=== PATIENT | male | born 1950 | race Caucasian/White ===

== ENCOUNTER 2016-07-27 16:13 | Inpatient (IN) | payer MEDICARE, OTHER ==
[2016-07-27 20:02] LABS: CH 31.8; CHCM 32.7; HCT 47.9 % (39.0-53.0); HDW 2.32; HGB 15.9 gm/dL (13.0-17.5); MCH 32.4 pg (25.0-35.0); MCHC 33.1 g/dL (31.0-37.0); MCV 97.8 fL (80.0-100.0); Mean Platelet Volume 7.5; WBC 6.2 k/uL (3.8-10.6)
[2016-07-27 20:16] LABS: ALT 33 U/L (21-72); AST 30 U/L (17-59); Alkaline Phosphatase 106 U/L (38-126); Anion Gap 13 mmol/L; Blood Urea Nitrogen 18 mg/dL (9-20); Calcium 9.2 mg/dL (8.4-10.2); Carbon Dioxide 24 mmol/L (22-30); Chloride 101 mmol/L (98-107); Glucose 143 mg/dL (74-99); Magnesium 1.8 mg/dL (1.6-2.3); Non-African American GFR(MDRD) >60 (>60 ml/min/1.73 sqM); Potassium 4.3 mmol/L (3.5-5.1); Sodium 138 mmol/L (137-145); Total Bilirubin 0.7 mg/dL (0.2-1.3); Total Protein 7.2 g/dL (6.3-8.2)
[2016-07-27 20:35] LABS: Troponin I 0.078 ng/mL (0.000-0.034)
[2016-07-27] MEDS: ATORVASTATIN 20 MG TAB PO SCH (21:18)
[2016-07-27] MEDS: FUROSEMIDE 10 MG/ML 4 ML VIAL IV SCH (21:19)
[2016-07-27] MEDS: AZITHROMYCIN 500 MG in SODIUM CHLORIDE 0.9% 250 ML IVPB SCH (23:12)
[2016-07-28 02:45] LABS: Troponin I 0.06 ng/mL (0.000-0.034)
[2016-07-28] MEDS: MELATONIN 3 MG TABLET PO SCH ×2 (04:32→22:14)
[2016-07-28] MEDS: IPRATROPIUM-ALBUTEROL 3 ML NEB INHALATION SCH ×5 (04:32→20:38)
[2016-07-28] MEDS: FUROSEMIDE 10 MG/ML 4 ML VIAL IV SCH ×2 (07:07→20:27)
[2016-07-28 07:26] LABS: Cholesterol 218 mg/dL (<200); HDL Cholesterol 90 mg/dL (40-60); Triglycerides 68 mg/dL (<150)
--- NOTE | 2016-07-28 07:54 | XR ---
EXAMINATION TYPE: XR chest 1V portable DATE OF EXAM: 07/28/2016 7:11 AM COMPARISON: 07/04/2007 INDICATION: Difficulty in breathing TECHNIQUE: Single frontal view of the chest is obtained. FINDINGS: The heart size is normal. The pulmonary vasculature is normal. No focal consolidations are evident. IMPRESSION: 1. No suspicious acute pulmonary process.
[2016-07-28 08:10] LABS: Creatine Kinase MB 2.9 ng/mL (0.0-2.4); Troponin I 0.057 ng/mL (0.000-0.034)
[2016-07-28] MEDS: LISINOPRIL 10 MG TAB PO SCH (09:15)
--- NOTE | 2016-07-28 12:25 | ECHOF ---
Referral Reason:Heart Failure MEASUREMENTS -------- HEIGHT: 0.0 cm WEIGHT: 0.0 kg BP: 130/76 RVIDd: 2.6 cm (< 3.3) IVSd: 1.4 cm (0.6 - 1.1) LVIDd: 4.1 cm (3.9 - 5.3) LVPWd: 1.4 cm (0.6 - 1.1) IVSs: 1.7 cm LVIDs: 3.0 cm LVPWs: 1.7 cm LA Diam: 4.0 cm (2.7 - 3.8) LAESV Index (A-L): 37.60 ml/m Ao Diam: 3.6 cm (2.0 - 3.7) AV Cusp: 2.0 cm (1.5 - 2.6) LA Diam: 4.0 cm (2.7 - 3.8) MV EXCURSION: 19.436 mm (> 18.000) MV EF SLOPE: 75 mm/s (70 - 150) EPSS: 1.4 cm MV E Scott: 0.78 m/s MV DecT: 129 ms MV A Scott: 0.75 m/s MV E/A Ratio: 1.03 AR PHT: 1908 ms FINDINGS -------- Sinus rhythm. This was a technically good study. There is moderate concentric left ventricular hypertrophy. Overall left ventricular systolic function is mildly impaired with, an EF between 45 - 50 %. Mid to basal inferiorlateral is hypokinetic The right ventricle is normal in size. LA is moderately dilated 34-39 ml/m2 The right atrium is normal in size. Aortic valve is trileaflet and is mildly thickened. There is mild aortic regurgitation. The mitral valve leaflets are mildly thickened. Mild mitral annular calcification present. Mild mitral regurgitation is present. Trace tricuspid regurgitation present. Pulmonic valve appears structurally normal. The aortic root size is normal. Normal inferior vena cava with normal inspiratory collapse consistent with estimated right atrial pressure of 5 mmHg. There is no pericardial effusion. CONCLUSIONS -------- 1. Sinus rhythm. 2. There is mild aortic regurgitation. 3. The mitral valve leaflets are mildly thickened. 4. Mild mitral annular calcification present. 5. Mild mitral regurgitation is present. 6. Trace tricuspid regurgitation present. 7. Pulmonic valve appears structurally normal. 8. The aortic root size is normal. 9. Normal inferior vena cava with normal inspiratory collapse consistent with estimated right atrial pressure of 5 mmHg. 10. There is no pericardial effusion. 11. This was a technically good study. 12. There is moderate concentric left ventricular hypertrophy. 13. Overall left ventricular systolic function is mildly impaired with, an EF between 45 - 50 %. 14. Mid to basal inferiorlateral is hypokinetic 15. The right ventricle is normal in size. 16. LA is moderately dilated 34-39 ml/m2 17. The right atrium is normal in size. 18. Aortic valve is trileaflet and is mildly thickened. PILOT INSTRUCTOR: Walt Powell RDCS
--- NOTE | 2016-07-28 12:31 | CONS ---
DATE OF CONSULTATION: Mr. Matias is a 66-year-old gentleman who is seen for the cardiac evaluation. This patient was transferred from [facility] because of acute respiratory distress. Patient gives a history that he was having a problem for a couple of days; however, yesterday morning he became severely short of breath. Patient was taken to the [facility]. He was in sinus tachycardia with elevated blood pressure and acute heart failure. Patient was treated with IV labetalol and Lasix with improvement in the symptoms. Patient did not have any chest discomfort. Patient does have a history of hypertension, history of peripheral vascular disease and patient is a chronic smoker for many years. Patient has some nonhealing ulcer in the leg and he has a previous left leg bypass. The patient denies any definite prior history of myocardial infarction and his physical activities are significantly limited. Past medical history includes a left femur, orthopedic surgery, left leg bypass surgery, chronic back pain, history of hypertension. SOCIAL HISTORY: Patient is currently every day smoker. Patient's home medications included Motrin and Tylenol. Physical examination at present reveals a 66-year-old gentleman who at present is not in any acute respiratory distress. Blood pressure is 147/82 mmHg. Oxygen saturation is 94%. Head/ENT examination is negative. Neck is supple. Jugular venous pressure is elevated. Both the carotid pulses are felt. There is no bruit. Chest is symmetrical. HEART: The PMI is not felt. First and second heart sounds are normal. Lungs examination reveals bilateral basal rales with scattered wheezes. Abdomen is soft. EXTREMITIES: Peripheral pulsations are 1+. Patient's initial EKG done at the [facility] showed sinus tachycardia. Subsequent EKG showed left ventricular hypertrophy with T wave changes suggestive of ischemia versus strain pattern. Patient's initial troponin was 0.78, subsequent troponin are 0.060, 1057. BNP level was 2700. Chest x-ray showed evidence of heart failure. Patient's echocardiogram shows evidence of inferolateral hypokinesia with overall mildly impaired left ventricular systolic function. FINAL IMPRESSION: This patient has presented with acute pulmonary edema. EKG shows anterolateral T wave changes, which could be suggestive of ischemia or secondary to left ventricular hypertrophy and strain pattern. Patient has a mildly elevated troponin suggestive of possible non-Q-wave myocardial infarction. RECOMMENDATIONS: At present, I would recommend to continue the patient on medical treatment. Once the patient's condition is improved and heart failure is improving we will consider cardiac catheterization on Saturday or Saturday. Thank you very much for letting me participate in the care of this nice gentleman.
[2016-07-28 13:39] VITALS: BMI 28.7
[2016-07-28] MEDS: ASPIRIN 325 MG TAB PO SCH (13:44)
[2016-07-28] MEDS: METOPROLOL TARTRATE 25 MG TAB PO SCH ×2 (13:44→20:37)
[2016-07-28] MEDS: IBUPROFEN 200 MG TAB PO PRN (17:27)
[2016-07-28] MEDS: AZITHROMYCIN 500 MG in SODIUM CHLORIDE 0.9% 250 ML IVPB SCH (18:12)
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
[2016-07-28] MEDS: ATORVASTATIN 20 MG TAB PO SCH (20:37)
[2016-07-28] MEDS: ACETAMINOPHEN TAB 325 MG TAB PO PRN (23:44)
[2016-07-29] MEDS: IBUPROFEN 200 MG TAB PO PRN ×3 (00:05→17:41)
[2016-07-29 06:23] LABS: Basophils % (A) 1 %; CHCM 32.4; Eosinophils # (A) 0.1 k/uL (0-0.7); Eosinophils % (A) 2 %; HCT 49.8 % (39.0-53.0); HDW 2.18; HGB 15.6 gm/dL (13.0-17.5); Luc # (Auto) 0.21; Luc % (Auto) 3; Lymphocytes # (A) 1.8 k/uL (1.0-4.8); Lymphocytes % (A) 25 %; MCH 31.1 pg (25.0-35.0); MCHC 31.4 g/dL (31.0-37.0); MCV 99.2 fL (80.0-100.0); Mean Platelet Volume 6.9; Monocytes # (A) 0.6 k/uL (0-1.0); Monocytes % (A) 9 %; Neutrophils # (A) 4.4 k/uL (1.3-7.7); Neutrophils % (A) 61 %; RBC 5.02 m/uL (4.30-5.90); RDW 13.9 % (11.5-15.5); WBC 7.2 k/uL (3.8-10.6); WBC (Perox) 7.17
[2016-07-29 06:31] LABS: ALT 43 U/L (21-72); AST 33 U/L (17-59); Alkaline Phosphatase 97 U/L (38-126); Anion Gap 7 mmol/L; Blood Urea Nitrogen 27 mg/dL (9-20); Calcium 9.6 mg/dL (8.4-10.2); Carbon Dioxide 30 mmol/L (22-30); Chloride 105 mmol/L (98-107); Glucose 111 mg/dL (74-99); Magnesium 2.1 mg/dL (1.6-2.3); Non-African American GFR(MDRD) >60 (>60 ml/min/1.73 sqM); Potassium 4.2 mmol/L (3.5-5.1); Sodium 142 mmol/L (137-145); Total Bilirubin 0.7 mg/dL (0.2-1.3); Total Protein 6.9 g/dL (6.3-8.2)
[2016-07-29] MEDS: FUROSEMIDE 10 MG/ML 4 ML VIAL IV SCH (06:33)
[2016-07-29] MEDS: ACETAMINOPHEN TAB 325 MG TAB PO PRN ×2 (06:36→15:19)
[2016-07-29] MEDS: IPRATROPIUM-ALBUTEROL 3 ML NEB INHALATION SCH ×4 (08:19→20:51)
[2016-07-29] MEDS: LISINOPRIL 10 MG TAB PO SCH (09:14)
[2016-07-29] MEDS: METOPROLOL TARTRATE 25 MG TAB PO SCH ×2 (09:14→20:02)
[2016-07-29] MEDS: ASPIRIN 325 MG TAB PO SCH (09:14)
[2016-07-29] MEDS ORDERED: ALPRAZolam 0.25 MG TAB PO PRN (13:50)
[2016-07-29] MEDS ORDERED: NITROGLYCERIN SL TABS 0.4 MG TAB SUBLINGUAL PRN (13:50)
[2016-07-29] MEDS ORDERED: ALPRAZolam 0.5 MG TAB PO PRN (13:50)
[2016-07-29] MEDS ORDERED: SODIUM CHLORIDE 0.9% 1,000 ML in EMPTY BAG 1 BAG IV ONE (13:50)
[2016-07-29] MEDS ORDERED: ASPIRIN 325 MG TAB PO STA (13:50)
[2016-07-29] MEDS ORDERED: ATORVASTATIN 80 MG TAB PO STA (13:50)
[2016-07-29] MEDS: FUROSEMIDE 40 MG TAB PO SCH (15:19)
[2016-07-29 15:39] VITALS: RESP 18
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
[2016-07-29] MEDS: ATORVASTATIN 20 MG TAB PO SCH (20:02)
[2016-07-29] MEDS ORDERED: traMADol 50 MG TAB PO SCH (22:00)
[2016-07-29] MEDS: MELATONIN 3 MG TABLET PO SCH (22:34)
[2016-07-30] MEDS: METOPROLOL TARTRATE 25 MG TAB PO SCH ×2 (06:15→20:10)
[2016-07-30] MEDS: LISINOPRIL 10 MG TAB PO SCH (06:15)
[2016-07-30] MEDS: ASPIRIN 325 MG TAB PO SCH (06:15)
[2016-07-30] MEDS: traMADol 50 MG TAB PO PRN ×2 (06:16→13:14)
[2016-07-30 07:03] LABS: Basophils # (A) 0.1 k/uL (0-0.2); Basophils % (A) 1 %; CH 31.8; CHCM 32.2; Eosinophils # (A) 0.3 k/uL (0-0.7); Eosinophils % (A) 4 %; HCT 50.7 % (39.0-53.0); HDW 2.22; HGB 16.2 gm/dL (13.0-17.5); Luc # (Auto) 0.21; Luc % (Auto) 3; Lymphocytes # (A) 1.7 k/uL (1.0-4.8); Lymphocytes % (A) 24 %; MCH 31.7 pg (25.0-35.0); MCV 99.1 fL (80.0-100.0); Mean Platelet Volume 6.9; Monocytes # (A) 0.6 k/uL (0-1.0); Monocytes % (A) 8 %; Neutrophils # (A) 4.2 k/uL (1.3-7.7); Neutrophils % (A) 60 %; RBC 5.11 m/uL (4.30-5.90); RDW 13.7 % (11.5-15.5); WBC 6.9 k/uL (3.8-10.6); WBC (Perox) 7.16
[2016-07-30 07:24] LABS: ALT 37 U/L (21-72); AST 30 U/L (17-59); Alkaline Phosphatase 96 U/L (38-126); Anion Gap 9 mmol/L; Blood Urea Nitrogen 29 mg/dL (9-20); Calcium 9.4 mg/dL (8.4-10.2); Carbon Dioxide 27 mmol/L (22-30); Chloride 107 mmol/L (98-107); Glucose 115 mg/dL (74-99); Non-African American GFR(MDRD) >60 (>60 ml/min/1.73 sqM); Potassium 4.1 mmol/L (3.5-5.1); Sodium 143 mmol/L (137-145); Total Bilirubin 0.8 mg/dL (0.2-1.3); Total Protein 6.8 g/dL (6.3-8.2)
[2016-07-30] MEDS: IPRATROPIUM-ALBUTEROL 3 ML NEB INHALATION SCH ×4 (07:31→20:03)
[2016-07-30] MEDS: FUROSEMIDE 40 MG TAB PO SCH ×2 (12:59→18:22)
[2016-07-30] MEDS: ACETAMINOPHEN TAB 325 MG TAB PO PRN (13:14)
--- NOTE | 2016-07-30 16:01 | P.PN ---
Subjective Principal diagnosis: Respiratory distress Progress no further date of service 07/29/2016 This is a 66-year-old gentleman transferred here from [facility] because of acute respiratory distress. He was in sinus tachycardia with elevated blood pressure as well as acute congestive heart failure. Patient was treated with IV labetalol and Lasix with improvement in symptoms. Patient does have history of hypertension, peripheral vascular disease, chronic smoking. He also has a nonhealing ulcer in the leg. Laboratory data, potassium 4.2, BUN 27, creatinine 0.8. Overall patient is improving, he has been advised to undergo cardiac catheterization. Patient has a lot of difficulty lying flat, and is requesting to have radial approach. Procedure will be scheduled tomorrow with Dr. Johnson. Risks and benefits explained to the patient in detail. The Lasix will be discontinued and patient will be initiated on by mouth Lasix. Objective - Vital Signs Vital signs: Vital Signs Temp 97.4 F L 07/30/16 09:25 Pulse 76 07/30/16 11:45 Resp 18 07/30/16 11:45 BP 147/76 07/30/16 11:45 Pulse Ox 94 L 07/30/16 11:45 Intake & Output 07/29/16 07/30/16 07/30/16 18:59 06:59 18:59 Intake Total 550 1100 1278 Output Total 500 450 Balance 50 650 1278 Weight 88.1 kg Intake: Intake, IV Titration 1056 Amount Sodium Chloride 0.9% 1, 1056 000 ml In Empty Bag 1 bag @ 1 ML/KG/HR 88.8 mls/hr IV .[id number] ONE Rx#: [id number] Oral 550 1100 222 Output: Urine 500 450 Other: Voiding Method Urinal Urinal Urinal # Voids 3 - Exam PHYSICAL EXAMINATION: HEENT: Head is atraumatic, normocephalic. Pupils equal, round. Neck is supple. There is no elevated jugular venous pressure. HEART EXAMINATION: Heart S1, S2 normal. No murmur or gallop heard. CHEST EXAMINATION: Lungs reveal fine crackles bilaterally. ABDOMEN: Soft, nontender. Bowel sounds are heard. No organomegaly noted. EXTREMITIES: 2+ peripheral pulses with no evidence of peripheral edema and no calf tenderness noted. NEUROLOGIC patient is awake, alert and oriented -3. . - Labs CBC & Chem 7: 07/30/16 06:26 03/06/17 06:23 Labs: Abnormal Lab Results - Last 24 Hours (Table) 07/30/16 Range/Units 06:23 BUN 29 H (9-20) mg/dL Glucose 115 H (74-99) mg/dL Assessment and Plan (1) Acute respiratory failure with hypoxia Status: Acute (2) Non-STEMI (non-ST elevated myocardial infarction) Status: Acute (3) Nicotine dependence Status: Acute (4) HTN (hypertension) Status: Acute (5) Hyperlipemia Status: Acute (6) Systolic CHF, acute on chronic Status: Acute Plan: Echocardiogram with Doppler study revealed an ejection fraction of 45-50% with inferior lateral hypokinesia. Patient has been advised to undergo cardiac catheterization, this will be performed tomorrow by Dr. Johnson. DNP note has been reviewed, I agree with a documented findings and plan of care. Patient was seen and examined.
--- NOTE | 2016-07-30 16:04 | P.PN ---
Subjective Principal diagnosis: Respiratory distress Progress no further date of service 07/30/2016 This is a 66-year-old gentleman transferred here from [facility] because of acute respiratory distress. He was in sinus tachycardia with elevated blood pressure as well as acute congestive heart failure. Patient was treated with IV labetalol and Lasix with improvement in symptoms. Patient does have history of hypertension, peripheral vascular disease, chronic smoking. He also has a nonhealing ulcer in the leg. He was originally scheduled to undergo cardiac catheterization today, this had postponed until tomorrow. He denies any chest pain, breathing is been stable. Objective - Vital Signs Vital signs: Vital Signs Temp 97.4 F L 07/30/16 09:25 Pulse 76 07/30/16 11:45 Resp 18 07/30/16 11:45 BP 147/76 07/30/16 11:45 Pulse Ox 94 L 07/30/16 11:45 Intake & Output 07/29/16 07/30/16 07/30/16 18:59 06:59 18:59 Intake Total 550 1100 1278 Output Total 500 450 Balance 50 650 1278 Weight 88.1 kg Intake: Intake, IV Titration 1056 Amount Sodium Chloride 0.9% 1, 1056 000 ml In Empty Bag 1 bag @ 1 ML/KG/HR 88.8 mls/hr IV .[id number] ONE Rx#: [id number] Oral 550 1100 222 Output: Urine 500 450 Other: Voiding Method Urinal Urinal Urinal # Voids 3 - Exam PHYSICAL EXAMINATION: HEENT: Head is atraumatic, normocephalic. Pupils equal, round. Neck is supple. There is no elevated jugular venous pressure. HEART EXAMINATION: Heart S1, S2 normal. No murmur or gallop heard. CHEST EXAMINATION: Lungs reveal fine crackles bilaterally. ABDOMEN: Soft, nontender. Bowel sounds are heard. No organomegaly noted. EXTREMITIES: 2+ peripheral pulses with no evidence of peripheral edema and no calf tenderness noted. NEUROLOGIC patient is awake, alert and oriented -3. . - Labs CBC & Chem 7: 07/30/16 06:26 07/30/16 06:23 Labs: Abnormal Lab Results - Last 24 Hours (Table) 07/30/16 Range/Units 06:23 BUN 29 H (9-20) mg/dL Glucose 115 H (74-99) mg/dL Assessment and Plan (1) Acute respiratory failure with hypoxia Status: Acute (2) Non-STEMI (non-ST elevated myocardial infarction) Status: Acute (3) Nicotine dependence Status: Acute (4) HTN (hypertension) Status: Acute (5) Hyperlipemia Status: Acute (6) Systolic CHF, acute on chronic Status: Acute Plan: Echocardiogram with Doppler study revealed an ejection fraction of 45-50% with inferior lateral hypokinesia. Patient has been advised to undergo cardiac catheterization, this will be performed tomorrow by Dr. Johnson. We'll continue the patient on his current medications. DNP note has been reviewed, I agree with a documented findings and plan of care. Patient was seen and examined.
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
--- NOTE | 2016-07-30 19:48 | XR ---
EXAMINATION TYPE: XR chest 2V DATE OF EXAM: 07/30/2016 7:34 PM COMPARISON: 07/28/2016 HISTORY: Heart failure. Short of breath TECHNIQUE: Frontal and lateral views of the chest are obtained. FINDINGS: Heart and mediastinum are normal. Lungs are clear of infiltrate. There is no heart failure . There are chest leads. There is no sign of pleural effusion. Bony thorax appears intact. IMPRESSION: No active cardiopulmonary disease. No adverse change compared to old exam.
[2016-07-30] MEDS: ATORVASTATIN 20 MG TAB PO SCH (20:10)
[2016-07-30] MEDS: IBUPROFEN 200 MG TAB PO PRN (20:11)
[2016-07-30] MEDS: MELATONIN 3 MG TABLET PO SCH (23:11)
[2016-07-31 03:52] VITALS: TEMP 97.5
[2016-07-31] MEDS: METOPROLOL TARTRATE 25 MG TAB PO SCH (05:57)
[2016-07-31] MEDS: LISINOPRIL 10 MG TAB PO SCH (05:57)
[2016-07-31] MEDS: ASPIRIN 325 MG TAB PO SCH (05:57)
[2016-07-31 06:29] LABS: Basophils # (A) 0.1 k/uL (0-0.2); Basophils % (A) 1 %; CH 31.7; CHCM 32.5; Eosinophils # (A) 0.4 k/uL (0-0.7); Eosinophils % (A) 6 %; HCT 51.3 % (39.0-53.0); HDW 2.27; HGB 16.3 gm/dL (13.0-17.5); Luc # (Auto) 0.17; Luc % (Auto) 3; Lymphocytes # (A) 1.4 k/uL (1.0-4.8); Lymphocytes % (A) 25 %; MCH 31.2 pg (25.0-35.0); MCHC 31.8 g/dL (31.0-37.0); MCV 98.1 fL (80.0-100.0); Mean Platelet Volume 6.7; Monocytes # (A) 0.5 k/uL (0-1.0); Monocytes % (A) 8 %; Neutrophils # (A) 3.3 k/uL (1.3-7.7); Neutrophils % (A) 57 %; RBC 5.23 m/uL (4.30-5.90); RDW 13.6 % (11.5-15.5); WBC 5.8 k/uL (3.8-10.6); WBC (Perox) 5.83
[2016-07-31 06:47] LABS: ALT 41 U/L (21-72); AST 31 U/L (17-59); Alkaline Phosphatase 102 U/L (38-126); Anion Gap 10 mmol/L; Blood Urea Nitrogen 27 mg/dL (9-20); Calcium 9.7 mg/dL (8.4-10.2); Carbon Dioxide 30 mmol/L (22-30); Chloride 102 mmol/L (98-107); Glucose 113 mg/dL (74-99); Non-African American GFR(MDRD) >60 (>60 ml/min/1.73 sqM); Potassium 4.6 mmol/L (3.5-5.1); Sodium 142 mmol/L (137-145); Total Bilirubin 0.9 mg/dL (0.2-1.3); Total Protein 6.9 g/dL (6.3-8.2)
[2016-07-31] MEDS: IPRATROPIUM-ALBUTEROL 3 ML NEB INHALATION SCH ×2 (08:10→13:01)
[2016-07-31] MEDS: traMADol 50 MG TAB PO PRN (08:20)
[2016-07-31] MEDS: ACETAMINOPHEN TAB 325 MG TAB PO PRN (08:20)
[2016-07-31] MEDS ORDERED: LIDOCAINE 2% INJ 20 MG/ML (20 ML MDV) ONE (08:48)
[2016-07-31] MEDS ORDERED: MIDAZOLAM 2 MG/2 ML VIAL ONE (08:48)
[2016-07-31] MEDS ORDERED: SODIUM CHLORIDE 0.9% (PF) 10 ML VIAL ONE ×2 (08:49→09:50)
[2016-07-31] MEDS ORDERED: HEPARIN SODIUM 1,000 UNIT/ML VIAL ONE (08:49)
[2016-07-31] MEDS ORDERED: VERAPAMIL 2.5 MG/ML 2 ML AMP ONE ×2 (08:49→09:50)
[2016-07-31] MEDS ORDERED: MIDAZOLAM 2 MG/2 ML VIAL IVP ONE (09:29)
[2016-07-31] MEDS ORDERED: LIDOCAINE 2% (PF) 20 MG/ML 2 ML VIAL SQ ONE (09:35)
[2016-07-31] MEDS: VERAPAMIL SYRINGE (5 MG/10 ML) INTRACORON ONE ×2 (09:36→09:43)
[2016-07-31] MEDS ORDERED: HYDROmorphone 2 MG/ML 1 ML SYRINGE ONE (09:37)
[2016-07-31] MEDS ORDERED: HYDROmorphone 2 MG/ML 1 ML SYRINGE IVP ONE (09:39)
[2016-07-31] MEDS ORDERED: HEPARIN SODIUM 1,000 UNIT/ML VIAL IV ONE (09:41)
[2016-07-31] MEDS ORDERED: VERAPAMIL SYRINGE (5 MG/10 ML) INTRACORON ONE (09:51)
[2016-07-31] MEDS ORDERED: VERAPAMIL 2.5 MG/ML 4 ML VIAL INTRAARTER ONE (09:51)
[2016-07-31] MEDS ORDERED: SODIUM CHLORIDE 0.9% 1,000 ML IV ONE (09:55)
[2016-07-31] MEDS ORDERED: IOHEXOL 350 MG/ML 100 ML BOTTLE INJ ONE (09:55)
[2016-07-31] MEDS ORDERED: RX INFO: IV CONTRAST WAS GIVEN 1 EACH MISC MISCELLANE PRN (10:05)
[2016-07-31] MEDS ORDERED: SODIUM CHLORIDE 0.9% 1,000 ML IV SCH (10:15)
--- NOTE | 2016-07-31 10:29 | CC ---
DATE OF SERVICE: 07/30/2016 PERFORMING PHYSICIAN: José Luis Avila MD, Repeater Operator. PROCEDURE PERFORMED: Selective right and left coronary angiogram. INDICATION: This is a pleasant 66-year-old gentleman who was admitted to the hospital with congestive heart failure exacerbation and underwent an echocardiogram which showed mild cardiomyopathy, but the cardiac enzymes came in to be slightly abnormal. The heart catheterization is to rule out any severe underlying CAD. APPROACH: Right radial artery. COMPLICATION: None. LEVEL OF SEDATION: Moderate with the length of sedation of 30 minutes. PROCEDURE DESCRIPTION: After obtaining an informed consent, the patient was brought to the cardiac mason tender restoration labor. The right radial artery was cannulated using micropuncture technique, the micropuncture wire passed easily, then I placed a 6 Romanian sheath in the right radial artery. Subsequently, I gave the patient 4 mg of verapamil IA and 3000 units of heparin IV. After that, I did selective right and left coronary angiogram using JR4 and JL 3.5 catheters. The procedure was completed without any complication. SELECTIVE CORONARY ANGIOGRAM: 1. The right coronary artery is a medium caliber vessel and it is a dominant vessel. The right coronary artery has mild disease only. In the midportion it gives rise into a small acute marginal branch and distally bifurcates into PDA and PLV branches; both are angiographically normal. 2. The left main is angiographically normal. It bifurcates into the left circumflex and left anterior descending artery. 3. The left circumflex is a large-caliber vessel and it is a nondominant vessel, the proximal circ is normal and gives rise to the first OM, which appeared to be angiographically normally. The mid circ has eccentric lesion, seems to be in the range of 40% to 50%. The left circumflex distally gives rises into the second OM branch, which appeared to be angiographically normal. Then the circ bifurcates into PDA and PLV branches; both are angiographically normal. 4. The proximal LAD is angiographically normal. It gives rise to the first and second diag, both are angiographically normal. The mid LAD is normal and gives rise to the third diag, which appeared to be angiographically normal. The LAD distally is angiographically normal. CONCLUSION: 1. Codominant right and left coronary system. 2. Intermediate disease involving the mid left circumflex with eccentric lesion, appeared to be in the range of 50%. Postprocedure management is medical treatment.
[2016-07-31] MEDS: FUROSEMIDE 40 MG TAB PO SCH ×2 (10:39→16:24)
[2016-07-31 14:09] VITALS: BP 126/68; PULSE 72
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
== END 2016-07-31 17:13 | disposition home or self-care (01) | DRG 280 ==
LOC: 6SEL 18:05
PROVIDERS: ADMIT Internal Medicine; ATTEND Internal Medicine
PROC: 4A023N7 Measurement of Cardiac Sampling and Pressure, Left Heart, Percutaneous Approach (ICD-10-PCS; principal; 2016-07-30)
PROC: B2151ZZ Fluoroscopy of Left Heart using Low Osmolar Contrast (ICD-10-PCS; principal; 2016-07-30)
PROC: B2111ZZ Fluoroscopy of Multiple Coronary Arteries using Low Osmolar Contrast (ICD-10-PCS; principal; 2016-07-30)
DX: I21.4 Non-ST elevation (NSTEMI) myocardial infarction (principal); I50.23 Acute on chronic systolic (congestive) heart failure; J96.01 Acute respiratory failure with hypoxia; I42.9 Cardiomyopathy, unspecified; I73.9 Peripheral vascular disease, unspecified; I11.0 Hypertensive heart disease with heart failure; E78.5 Hyperlipidemia, unspecified; F17.200 Nicotine dependence, unspecified, uncomplicated; I25.10 Atherosclerotic heart disease of native coronary artery without angina pectoris; M54.5 Low back pain; G89.29 Other chronic pain; Z79.899 Other long term (current) drug therapy
CPT/HCPCS: 71010; 71020; 80053; 80061; 82553; 83735; 83880; 84484; 85025; 85027; 93306; 93454

== ENCOUNTER → 2016-08-06 | Outpatient (CLI) | payer MEDICARE ==
[2016-08-06 13:16] LABS: ALT 41 U/L (21-72); AST 35 U/L (17-59); Alkaline Phosphatase 141 U/L (38-126); Anion Gap 10 mmol/L; Blood Urea Nitrogen 25 mg/dL (9-20); Calcium 9.7 mg/dL (8.4-10.2); Carbon Dioxide 29 mmol/L (22-30); Chloride 99 mmol/L (98-107); Glucose 97 mg/dL (74-99); Non-African American GFR(MDRD) >60 (>60 ml/min/1.73 sqM); Sodium 138 mmol/L (137-145); Total Bilirubin 0.6 mg/dL (0.2-1.3); Total Protein 7.6 g/dL (6.3-8.2)
[2016-08-06 13:30] LABS: Basophils # (A) 0.1 k/uL (0-0.2); Basophils % (A) 1 %; CH 32.1; CHCM 33.4; Eosinophils # (A) 0.2 k/uL (0-0.7); Eosinophils % (A) 3 %; HCT 50.6 % (39.0-53.0); HGB 16.9 gm/dL (13.0-17.5); Luc # (Auto) 0.31; Luc % (Auto) 4; Lymphocytes # (A) 1.6 k/uL (1.0-4.8); Lymphocytes % (A) 19 %; MCH 32.2 pg (25.0-35.0); MCHC 33.3 g/dL (31.0-37.0); MCV 96.5 fL (80.0-100.0); Mean Platelet Volume 7.9; Monocytes # (A) 0.6 k/uL (0-1.0); Monocytes % (A) 7 %; Neutrophils # (A) 5.9 k/uL (1.3-7.7); Neutrophils % (A) 68 %; RBC 5.24 m/uL (4.30-5.90); RDW 13.3 % (11.5-15.5); WBC 8.7 k/uL (3.8-10.6)
== END | disposition home or self-care (01) ==
LOC: LABWHC1 12:24
PROVIDERS: ATTEND Internal Medicine
DX: I50.9 Heart failure, unspecified (principal)
CPT/HCPCS: 36415; 80053; 85025

== ENCOUNTER 2017-06-25 15:29 | Inpatient (IN) | payer MEDICARE, OTHER ==
[2017-06-25] MEDS ORDERED: HYDROmorphone 2 MG/ML 1 ML SYRINGE IVP STA ×2 (17:18→18:35)
[2017-06-25] MEDS ORDERED: ONDANSETRON 4 MG/2 ML VIAL IVP STA (17:18)
--- NOTE | 2017-06-25 17:28 | ED ---
General Adult HPI - General Chief complaint: Fall Stated complaint: fall/left leg wound Time Seen by Provider: 06/25/17 17:10 Source: patient Mode of arrival: wheelchair Limitations: no limitations - History of Present Illness Initial comments: 67-year-old male patient presents to the emergency department today for evaluation of wounds to his left lower leg. Patient states that he has had chronic wounds to the leg for many years. States that he did have the wounds down to a very small size however over the last month of wounds seem to be worsening again. Patient states that he presents today due to increased pain to the area. He did go to his primary care physician's office today and was sent here for further evaluation of possible infection. Patient states he has been feeling unwell, nauseated, and chilled recently. Patient states that he has been taking Tylenol for pain however is not helping. States he has been applying antibiotic ointment to the wounds. States that they seem to be getting worse. Patient reports he also does have frequent falls, states that this is been happening for many years as well. Patient states that he believes soon stem from vascular issues. He denies having any diabetes.Patient denies any recent rash, shortness breath, chest pain, abdominal pain, vomiting, diarrhea, constipation, back pain, numbness, tingling, dizziness, weakness, hematuria, dysuria, urinary urgency, urinary frequency, headache, visual changes , or any other complaints. - Related Data Home Medications Medication Instructions Recorded Confirmed Cholecalciferol [Vitamin D3] 1,000 unit PO DAILY 06/25/17 06/25/17 Losartan Potassium 100 mg PO DAILY 06/25/17 06/25/17 Previous Rx's Medication Instructions Recorded Aspirin 325 mg PO DAILY #30 tab 07/31/16 Atorvastatin [Lipitor] 20 mg PO HS #30 tab 07/31/16 Furosemide [Lasix] 40 mg PO BID@0900,1600 #60 tab 07/31/16 Metoprolol Tartrate [Lopressor] 25 mg PO BID #60 tab 07/31/16 Allergies Allergy/AdvReac Type Severity Reaction Status Date / Time No Known Allergies Allergy Verified 06/25/17 17:31 Review of Systems ROS Statement: Those systems with pertinent positive or pertinent negative responses have been documented in the HPI. ROS Other: All systems not noted in ROS Statement are negative. Past Medical History Past Medical History: Chest Pain / Angina, Heart Failure, Hypertension, Myocardial Infarction ([place]), Skin Disorder Additional Past Medical History / Comment(s): chronic back pain History of Any Multi-Drug Resistant Organisms: None Reported Past Surgical History: Orthopedic Surgery Additional Past Surgical History / Comment(s): left femur ORIF, left leg bypass Past Anesthesia/Blood Transfusion Reactions: No Reported Reaction Past Psychological History: No Psychological Hx Reported Smoking Status: Current every day smoker Past Alcohol Use History: Heavy Past Drug Use History: None Reported General Exam Limitations: no limitations General appearance: alert, in no apparent distress, other (This is a well- developed, well-nourished adult male patient in no acute distress. Vital signs upon presentation are temperature 99.3F, pulse 1:15, respirations 18, blood pressure 166/77, pulse ox 96% on room air.) Eye exam: Present: normal appearance, PERRL, EOMI. Absent: scleral icterus, conjunctival injection, periorbital swelling ENT exam: Present: normal exam, normal oropharynx, mucous membranes moist Respiratory exam: Present: normal lung sounds bilaterally. Absent: respiratory distress, wheezes, rales, rhonchi, stridor Cardiovascular Exam: Present: regular rate, normal rhythm, normal heart sounds. Absent: systolic murmur, diastolic murmur, rubs, gallop, clicks GI/Abdominal exam: Present: soft, normal bowel sounds. Absent: distended, tenderness, guarding, rebound, rigid Extremities exam: Present: full ROM, normal capillary refill, other (Patient has large ulcers to the left lower leg over the anterior ibrahim, over the medial left ankle, there is surrounding erythema and swelling noted. Left foot is erythematous and swollen as well. Pedal pulses 2+ and equal bilaterally.). Absent: normal inspection, tenderness, pedal edema, joint swelling, calf tenderness Neurological exam: Present: alert, oriented X3, CN II-XII intact Psychiatric exam: Present: normal affect, normal mood Skin exam: Present: warm, dry, intact, normal color. Absent: rash Course Vital Signs 06/25/17 16:07 Temperature 99.0 F Pulse Rate 115 H Respiratory 18 Rate Blood Pressure 166/77 O2 Sat by Pulse 96 Oximetry Medical Decision Making - Medical Decision Making 67 year-old male patient presented to the emergency department today for evaluation of wounds to his left lower leg. Physical examination did reveal multiple ulcers to both the anterior ibrahim and the medial ankle. There is a significant surrounding cellulitis and swelling. Labs were reviewed and were relatively unremarkable. X-rays were obtained and did not show any evidence of osteomyelitis. Patient will be admitted for pain management and further evaluation by infectious disease as well as vascular. Zosyn and Vanco have been started. My attending Dr. Monterroso did speak to Dr. Finnegan who accepts the patient. - Lab Data Result diagrams: 06/25/17 17:34 06/25/17 17:34 Lab Results 06/25/17 06/25/17 06/25/17 Range/Units 17:34 17:34 17:34 WBC 10.1 (3.8-10.6) k/uL RBC 4.36 (4.30-5.90) m/uL Hgb 13.8 (13.0-17.5) gm/dL Hct 42.2 (39.0-53.0) % MCV 96.8 (80.0-100.0) fL MCH 31.6 (25.0-35.0) pg MCHC 32.6 (31.0-37.0) g/dL RDW 14.9 (11.5-15.5) % Plt Count 342 (150-450) k/uL Neutrophils % 78 % Lymphocytes % 10 % Monocytes % 7 % Eosinophils % 2 % Basophils % 0 % Neutrophils # 7.9 H (1.3-7.7) k/uL Lymphocytes # 1.1 (1.0-4.8) k/uL Monocytes # 0.7 (0-1.0) k/uL Eosinophils # 0.2 (0-0.7) k/uL Basophils # 0.0 (0-0.2) k/uL PT 9.2 (9.0-12.0) sec INR 0.9 (<1.2) APTT 24.8 (22.0-30.0) sec Sodium 136 L (137-145) mmol/L Potassium 4.7 (3.5-5.1) mmol/L Chloride 99 (98-107) mmol/L Carbon Dioxide 28 (22-30) mmol/L Anion Gap 9 mmol/L BUN 15 (9-20) mg/dL Creatinine 0.70 (0.66-1.25) mg/dL Est GFR (MDRD) Af Amer >60 (>60 ml/min/1.73 sqM) Est GFR (MDRD) Non-Af >60 (>60 ml/min/1.73 sqM) Glucose 105 H (74-99) mg/dL Plasma Lactic Acid Elder (0.7-2.0) mmol/L Calcium 9.5 (8.4-10.2) mg/dL Total Bilirubin 0.4 (0.2-1.3) mg/dL AST 29 (17-59) U/L ALT 32 (21-72) U/L Alkaline Phosphatase 138 H (38-126) U/L Total Protein 6.7 (6.3-8.2) g/dL Albumin 4.0 (3.5-5.0) g/dL 06/25/17 Range/Units 17:43 WBC (3.8-10.6) k/uL RBC (4.30-5.90) m/uL Hgb (13.0-17.5) gm/dL Hct (39.0-53.0) % MCV (80.0-100.0) fL MCH (25.0-35.0) pg MCHC (31.0-37.0) g/dL RDW (11.5-15.5) % Plt Count (150-450) k/uL Neutrophils % % Lymphocytes % % Monocytes % % Eosinophils % % Basophils % % Neutrophils # (1.3-7.7) k/uL Lymphocytes # (1.0-4.8) k/uL Monocytes # (0-1.0) k/uL Eosinophils # (0-0.7) k/uL Basophils # (0-0.2) k/uL PT (9.0-12.0) sec INR (<1.2) APTT (22.0-30.0) sec Sodium (137-145) mmol/L Potassium (3.5-5.1) mmol/L Chloride (98-107) mmol/L Carbon Dioxide (22-30) mmol/L Anion Gap mmol/L BUN (9-20) mg/dL Creatinine (0.66-1.25) mg/dL Est GFR (MDRD) Af Amer (>60 ml/min/1.73 sqM) Est GFR (MDRD) Non-Af (>60 ml/min/1.73 sqM) Glucose (74-99) mg/dL Plasma Lactic Acid Elder 0.7 (0.7-2.0) mmol/L Calcium (8.4-10.2) mg/dL Total Bilirubin (0.2-1.3) mg/dL AST (17-59) U/L ALT (21-72) U/L Alkaline Phosphatase (38-126) U/L Total Protein (6.3-8.2) g/dL Albumin (3.5-5.0) g/dL - Radiology Data Radiology results: report reviewed, image reviewed Two-view x-ray of the left tib-fib shows deformity of the midshaft of the tibia related to old healed fracture. There is moderately severe osteoarthritis in the knee joint. I see no acute fracture. There is old he'll midshaft fibular fracture. Impression by Dr. Brennan shows no acute bony abnormality. No sign of osteomyelitis. There is progression of osteoarthritis in the knee joint compared to old exam. 3 views of the left ankle are obtained and showed some soft tissue swelling around the ankle joint. Ankle mortise is anatomic. There is deformity of the distal tibia consistent with old healed fracture medially. Subtalar joint is intact. Impression by Dr. Brennan shows soft tissue swelling. No fracture seen. No bony change. Disposition Clinical Impression: Leg wound, left Disposition: ADMITTED IP TO THIS HOSP Condition: Serious Referrals: Freddie House MD [Primary Care Provider] - 1-2 days Decision to Admit Reason: Admit from EC (t) Decision Date: 06/25/17 Decision Time: 18:48
[2017-06-25] MEDS: SODIUM CHLORIDE 0.9% 500 ML IV SCH ×2 (17:38→18:43)
[2017-06-25 17:44] LABS: Basophils % (A) 0 %; Eosinophils # (A) 0.2 k/uL (0-0.7); Eosinophils % (A) 2 %; HCT 42.2 % (39.0-53.0); HGB 13.8 gm/dL (13.0-17.5); Lymphocytes # (A) 1.1 k/uL (1.0-4.8); Lymphocytes % (A) 10 %; MCH 31.6 pg (25.0-35.0); MCHC 32.6 g/dL (31.0-37.0); MCV 96.8 fL (80.0-100.0); Mean Platelet Volume 7.3; Monocytes # (A) 0.7 k/uL (0-1.0); Monocytes % (A) 7 %; Neutrophils # (A) 7.9 k/uL (1.3-7.7); Neutrophils % (A) 78 %; Platelet Count 342 k/uL (150-450); RBC 4.36 m/uL (4.30-5.90); RDW 14.9 % (11.5-15.5); WBC 10.1 k/uL (3.8-10.6)
[2017-06-25] MEDS ORDERED: VANCOMYCIN IV PER PHARMACY 1 EACH MISC MISCELLANE PRN (17:55)
[2017-06-25] MEDS ORDERED: PIPERACILLIN-TAZOBACTAM 3.375 GM in DEXTROSE/WATER 1 50ML.BAG IVPB STA (17:55)
[2017-06-25 18:02] LABS: ALT 32 U/L (21-72); AST 29 U/L (17-59); Alkaline Phosphatase 138 U/L (38-126); Anion Gap 9 mmol/L; Blood Urea Nitrogen 15 mg/dL (9-20); Calcium 9.5 mg/dL (8.4-10.2); Carbon Dioxide 28 mmol/L (22-30); Chloride 99 mmol/L (98-107); Glucose 105 mg/dL (74-99); Potassium 4.7 mmol/L (3.5-5.1); Sodium 136 mmol/L (137-145); Total Bilirubin 0.4 mg/dL (0.2-1.3); Total Protein 6.7 g/dL (6.3-8.2)
[2017-06-25 18:04] LABS: INR 0.9 (<1.2); Partial Thromboplastin Time 24.8 sec (22.0-30.0); Prothrombin Time 9.2 sec (9.0-12.0)
--- NOTE | 2017-06-25 18:08 | XR ---
EXAMINATION TYPE: XR tibia fibula LT DATE OF EXAM: 06/25/2017 COMPARISON: 07/10/2007 HISTORY: Pain TECHNIQUE: 2 views FINDINGS: There is deformity of the midshaft of the tibia related to old healed fracture. There is mo derately severe osteoarthritis in the knee joint. I see no acute fracture. There is old healed mid sh aft fibular fracture. IMPRESSION: No acute bony abnormality. No sign of osteomyelitis. There is progression of osteoarthrit is in the knee joint compared to old exam.
--- NOTE | 2017-06-25 18:10 | XR ---
EXAMINATION TYPE: XR ankle complete LT DATE OF EXAM: 06/25/2017 COMPARISON: NONE HISTORY: Pain TECHNIQUE: 3 views FINDINGS: There is some soft tissue swelling around the ankle joint. Ankle mortise is anatomic. There is deformity of the distal tibia consistent with old healed fracture medially. Subtalar joint is int act. IMPRESSION: Soft tissue swelling. No fracture seen. No bony change.
[2017-06-25] MEDS ORDERED: KETOROLAC 30 MG/ML 1 ML VIAL IVP STA (18:35)
[2017-06-25] MEDS ORDERED: NALOXONE 0.4 MG/ML 1 ML VIAL IV PRN (18:36)
[2017-06-25] MEDS ORDERED: ONDANSETRON 4 MG/2 ML VIAL IVP PRN (18:41)
[2017-06-25] MEDS ORDERED: ACETAMINOPHEN TAB 325 MG TAB PO PRN (18:41)
[2017-06-25 19:17] LABS: Appearance,Urine Clear (Clear); Bilirubin,Urine Negative (Negative); Blood,Urine Negative (Negative); Color,Urine Yellow; Glucose,Urine (UA) Negative (Negative); Ketones,Urine Negative (Negative); Leukocyte Esterase,Urine Negative (Negative); Nitrite,Urine Negative (Negative); PH, Urine 6.5 (5.0-8.0); Protein,Urine Trace (Negative); Specific Gravity,Urine 1.008 (1.001-1.035); Urobilinogen,Urine <2.0 mg/dL (<2.0)
[2017-06-25] MEDS ORDERED: VANCOMYCIN 2,000 MG in SODIUM CHLORIDE 0.9% 500 ML IVPB ONE (20:00)
[2017-06-25] MEDS: HYDROmorphone 2 MG/ML 1 ML SYRINGE IVP PRN (22:25)
[2017-06-25] MEDS: ATORVASTATIN 20 MG TAB PO SCH (22:26)
[2017-06-25] MEDS: METOPROLOL TARTRATE 25 MG TAB PO SCH (22:27)
[2017-06-26] MEDS: MELATONIN 5 MG TABLET PO SCH ×2 (00:25→21:06)
[2017-06-26] MEDS: KETOROLAC 30 MG/ML 1 ML VIAL IVP PRN ×4 (00:36→23:27)
[2017-06-26] MEDS ORDERED: PIPERACILLIN-TAZOBACTAM 3.375 GM in DEXTROSE/WATER 1 50ML.BAG IVPB SCH (01:00)
[2017-06-26] MEDS: HYDROmorphone 2 MG/ML 1 ML SYRINGE IVP PRN ×4 (02:23→13:39)
[2017-06-26] MEDS: SODIUM CHLORIDE 0.9% 1,000 ML IV SCH ×2 (03:20→18:08)
[2017-06-26] MEDS: PIPERACILLIN-TAZOBACTAM 3.375 GM in DEXTROSE/WATER 1 50ML.BAG IVPB SCH ×3 (04:34→21:22)
[2017-06-26] MEDS: CHOLECALCIFEROL 1,000 UNIT TAB PO SCH (08:44)
[2017-06-26] MEDS: ASPIRIN 325 MG TAB PO SCH (08:44)
[2017-06-26] MEDS: FUROSEMIDE 40 MG TAB PO SCH ×2 (08:44→18:06)
[2017-06-26] MEDS ORDERED: DIPH,PERTUS(ACELL)TETVAC-LF 0.5 ML VIAL IM ONE (08:44)
[2017-06-26] MEDS: LOSARTAN 50 MG TAB PO SCH (08:44)
[2017-06-26] MEDS: METOPROLOL TARTRATE 25 MG TAB PO SCH ×2 (08:44→21:07)
--- NOTE | 2017-06-26 08:44 | P.CONS ---
History of Present Illness - Reason for Consult Consult date: 06/26/17 Left lower extremity wounds - History of Present Illness This is a 67-year-old male patient well known to ID service as he has been treated for chronic lower extremity wounds in the past with known peripheral vascular disease and previous bypass on the left.. He has had these for many years. Patient states that about the last month as well as became worse and he has had increased pain nausea and chills. He states he has been using bag balm, medihoney at home without any improvement. He has not been on any antibiotics. Patient presented to [facility] emergency center currently afebrile with white count of 10.1, creatinine 0.7. Alkaline phosphatase 138. Urinalysis was negative for urinary tract infection. Urine culture is in process and will culture and Gram stain are pending. Blood cultures status received. Patient was started on Zosyn and vancomycin and admitted to the [facility] floor. Patient has been seen by Dr. Will and he has ordered Dakins and therahoney twice daily. There is no immediate plan for debridement. Patient is a smoker one and half packs per day for 45 years. Patient is also drinking at least a sixpack of beer per day. Patient states that he has a previous back injury 40 years ago and has difficulty with his right leg and has frequent falls at home. He denies any recent injury. He denies any new injury to his left lower leg. Review of Systems All systems: negative Constitutional: Reports chills, Denies fever Eyes: denies blurred vision, denies pain Ears, nose, mouth and throat: Denies headache, Denies sore throat Cardiovascular: Reports shortness of breath (chronic), Denies chest pain Respiratory: Reports dyspnea, Denies cough, Denies excessive sputum, Denies hemoptysis, Denies home oxygen Gastrointestinal: Reports nausea, Denies abdominal pain, Denies diarrhea, Denies loss of appetite, Denies vomiting Musculoskeletal: Denies myalgias Integumentary: Reports wounds, Denies pruritus, Denies rash Neurological: Reports gait dysfunction, Denies numbness, Denies weakness Psychiatric: Denies anxiety, Denies depression Endocrine: Denies fatigue, Denies weight change Past Medical History Past Medical History: Chest Pain / Angina, Heart Failure, Hypertension, Myocardial Infarction ([place]), Skin Disorder Additional Past Medical History / Comment(s): chronic back pain, [place] spring of last year Last Myocardial Infarction Date:: 2015 History of Any Multi-Drug Resistant Organisms: None Reported Past Surgical History: Orthopedic Surgery Additional Past Surgical History / Comment(s): left femur ORIF 40 years ago, left leg bypass Past Anesthesia/Blood Transfusion Reactions: No Reported Reaction Past Psychological History: No Psychological Hx Reported Smoking Status: Current every day smoker Past Alcohol Use History: Heavy Past Drug Use History: None Reported - Past Family History Father Additional Family Medical History / Comment(s): lung cancer Brother(s) Additional Family Medical History / Comment(s): lung cancer Medications and Allergies Home Medications Medication Instructions Recorded Confirmed Type Aspirin 325 mg PO DAILY #30 tab 07/31/16 06/25/17 Rx Atorvastatin [Lipitor] 20 mg PO HS #30 tab 07/31/16 06/25/17 Rx Furosemide [Lasix] 40 mg PO BID@0900,1600 #60 tab 07/31/16 06/25/17 Rx Metoprolol Tartrate [Lopressor] 25 mg PO BID #60 tab 07/31/16 06/25/17 Rx Cholecalciferol [Vitamin D3] 1,000 unit PO DAILY 06/25/17 06/25/17 History Losartan Potassium 100 mg PO DAILY 06/25/17 06/25/17 History Allergies Allergy/AdvReac Type Severity Reaction Status Date / Time No Known Allergies Allergy Verified 06/25/17 17:31 Physical Exam Vitals: Vital Signs Temp Pulse Pulse Resp BP BP Pulse Ox 06/26/17 07:00 99.1 F 97 16 156/85 92 L 06/25/17 21:00 98.2 F 99 18 137/81 92 L 06/25/17 19:53 98.6 F 104 H 16 127/65 96 06/25/17 18:50 108 H 16 148/86 91 L 06/25/17 16:07 99.0 F 115 H 18 166/77 96 Intake and Output 06/25/17 06/26/17 06/26/17 22:59 06:59 14:59 Intake Total 1160 Output Total 1100 Balance 60 Intake: Oral 1160 Output: Urine 1100 Other: Weight 97.976 kg Gen: This is a 67-year-old male patient. He is sitting up in bed and appears to be comfortable. HEENT: Head is atraumatic, normocephalic. Pupils equal, round. Sclerae is anicteric. NECK: Supple. No JVD. No lymphadenopathy. No thyromegaly. LUNGS: Clear to auscultation. No wheezes or rhonchi. No intercostal retractions. HEART: Regular rate and rhythm. No murmur. ABDOMEN: Soft. Bowel sounds are present. No masses. No tenderness. EXTREMITIES: 2+ pedal edema to the left with extensive ulcers to the pretibial and ankle areas. Yellow exudate. Patient has a small wound to the right pretibial area with serous drainage. Dorsalis pedis is weak bilaterally. NEUROLOGICAL: Patient is awake, alert and oriented x3. Cranial nerves 2 through 12 are grossly intact. Results Results: Laboratory Results WBC 10.1 k/uL (3.8-10.6) 06/25/17 17:34 RBC 4.36 m/uL (4.30-5.90) 06/25/17 17:34 Hgb 13.8 gm/dL (13.0-17.5) 06/25/17 17:34 Hct 42.2 % (39.0-53.0) 06/25/17 17:34 MCV 96.8 fL (80.0-100.0) 06/25/17 17:34 MCH 31.6 pg (25.0-35.0) 06/25/17 17:34 MCHC 32.6 g/dL (31.0-37.0) 06/25/17 17:34 RDW 14.9 % (11.5-15.5) 06/25/17 17:34 Plt Count 342 k/uL (150-450) 06/25/17 17:34 Neutrophils % 78 % 06/25/17 17:34 Lymphocytes % 10 % 06/25/17 17:34 Monocytes % 7 % 06/25/17 17:34 Eosinophils % 2 % 06/25/17 17:34 Basophils % 0 % 06/25/17 17:34 Neutrophils # 7.9 k/uL (1.3-7.7) H 06/25/17 17:34 Lymphocytes # 1.1 k/uL (1.0-4.8) 06/25/17 17:34 Monocytes # 0.7 k/uL (0-1.0) 06/25/17 17:34 Eosinophils # 0.2 k/uL (0-0.7) 06/25/17 17:34 Basophils # 0.0 k/uL (0-0.2) 06/25/17 17:34 PT 9.2 sec (9.0-12.0) 06/25/17 17:34 INR 0.9 (<1.2) 06/25/17 17:34 APTT 24.8 sec (22.0-30.0) 06/25/17 17:34 Sodium 136 mmol/L (137-145) L 06/25/17 17:34 Potassium 4.7 mmol/L (3.5-5.1) 06/25/17 17:34 Chloride 99 mmol/L (98-107) 06/25/17 17:34 Carbon Dioxide 28 mmol/L (22-30) 06/25/17 17:34 Anion Gap 9 mmol/L 06/25/17 17:34 BUN 15 mg/dL (9-20) 06/25/17 17:34 Creatinine 0.70 mg/dL (0.66-1.25) 06/25/17 17:34 Est GFR (MDRD) Af Amer >60 (>60 ml/min/1.73 sqM) 06/25/17 17:34 Est GFR (MDRD) Non-Af >60 (>60 ml/min/1.73 sqM) 06/25/17 17:34 Glucose 105 mg/dL (74-99) H 06/25/17 17:34 Plasma Lactic Acid Elder 0.7 mmol/L (0.7-2.0) 06/25/17 17:43 Calcium 9.5 mg/dL (8.4-10.2) 06/25/17 17:34 Total Bilirubin 0.4 mg/dL (0.2-1.3) 06/25/17 17:34 AST 29 U/L (17-59) 06/25/17 17:34 ALT 32 U/L (21-72) 06/25/17 17:34 Alkaline Phosphatase 138 U/L (38-126) H 06/25/17 17:34 Total Protein 6.7 g/dL (6.3-8.2) 06/25/17 17:34 Albumin 4.0 g/dL (3.5-5.0) 06/25/17 17:34 Urine Color Yellow 06/25/17 18:50 Urine Appearance Clear (Clear) 06/25/17 18:50 Urine pH 6.5 (5.0-8.0) 06/25/17 18:50 Ur Specific [place] 1.008 (1.001-1.035) 06/25/17 18:50 Urine Protein Trace (Negative) H 06/25/17 18:50 Urine Glucose (UA) Negative (Negative) 06/25/17 18:50 Urine Ketones Negative (Negative) 06/25/17 18:50 Urine Blood Negative (Negative) 06/25/17 18:50 Urine Nitrite Negative (Negative) 06/25/17 18:50 Urine Bilirubin Negative (Negative) 06/25/17 18:50 Urine Urobilinogen <2.0 mg/dL (<2.0) 06/25/17 18:50 Ur Leukocyte Esterase Negative (Negative) 06/25/17 18:50 CBC & Chem 7: 06/25/17 17:34 06/25/17 17:34 Labs: Abnormal Lab Results - Last 24 Hours (Table) 06/25/17 06/25/17 06/25/17 Range/Units 17:34 17:34 18:50 Neutrophils # 7.9 H (1.3-7.7) k/uL Sodium 136 L (137-145) mmol/L Glucose 105 H (74-99) mg/dL Alkaline Phosphatase 138 H (38-126) U/L Urine Protein Trace H (Negative) Microbiology - Last 24 Hours (Table) 06/25/17 18:50 Urine Culture - Preliminary Urine,Voided 06/25/17 17:34 Wound Culture - Preliminary Leg - Left Assessment and Plan Plan: This is a 67-year-old male patient presented to the hospital with vascular ulcers to the left lower extremity and small wound on the right lower extremity. Patient is been seen by Dr. Will and he has ordered Dakins and therahoney twice daily. Patient is currently on Zosyn and vancomycin. Patient is unaware of his last tetanus and this will be updated during this admission. Wound and blood cultures are in progress. Continue supportive care. Smoking cessation is necessary. Further recommendations as patient progresses. The above dictated assessment and findings were discussed with Dr. Mendoza. The impression and plan of care have been directed as dictated. Lauryn Tomlinson nurse practitioner acting as scribe for Dr. Mendoza.
[2017-06-26] MEDS: SODIUM HYPOCHLORITE 0.5% 480 ML BOT MISCELLANE SCH ×2 (08:45→22:53)
[2017-06-26] MEDS: VANCOMYCIN 1,500 MG in SODIUM CHLORIDE 0.9% 250 ML IVPB SCH ×2 (08:45→18:01)
[2017-06-26] MEDS ORDERED: IPRATROPIUM-ALBUTEROL 3 ML NEB INHALATION PRN (10:45)
--- NOTE | 2017-06-26 10:53 | P.HPIM ---
History of Present Illness 67-year-old male patient with Dr. Mendoza for wound care as he has been treated for chronic lower extremity wounds in the past with known peripheral vascular disease and previous bypass on the left.. He has had these for many years. Patient states that about the last month as well as became worse and he has had increased pain nausea and chills. He states he has been using bag balm, medihoney at home without any improvement. He has not been on any antibiotics. Patient doesn't have any other sources of infection patient doesn't have any leukocytosis or fever at home. Vascular surgery was consulted He denies any recent injury. He denies any new injury to his left lower leg. He continues to smoke and drink Patient was evaluated infectious disease the regarding of antibiotics won't scan wound cultures vascular surgery evaluation. He continues to smoke but willing to quit smoking patient will watch for alcohol withdrawals as well. Review of Systems REVIEW OF SYSTEMS: CONSTITUTIONAL: No fever, no malaise, no fatigue. HEENT: No recent visual problems or hearing problems. Denied any sore throat. CARDIOVASCULAR: No chest pain, orthopnea, PND, no palpitations, no syncope. PULMONARY: No shortness of breath, no cough, no hemoptysis. GASTROINTESTINAL: No diarrhea, no nausea, no vomiting, no abdominal pain. Normoactive bowel sounds. NEUROLOGICAL: No headaches, no weakness, no numbness. HEMATOLOGICAL: Denies any bleeding or petechiae. GENITOURINARY: Denies any burning micturition, frequency, or urgency. MUSCULOSKELETAL/RHEUMATOLOGICAL: Denies any joint pain, swelling, or any muscle pain. ENDOCRINE: Denies any polyuria or polydipsia. The rest of the 14-point review of systems is negative. Past Medical History Past Medical History: Chest Pain / Angina, Heart Failure, Hypertension, Myocardial Infarction ([place]), Skin Disorder Additional Past Medical History / Comment(s): chronic back pain, [place] spring of last year Last Myocardial Infarction Date:: 2015 History of Any Multi-Drug Resistant Organisms: None Reported Past Surgical History: Orthopedic Surgery Additional Past Surgical History / Comment(s): left femur ORIF 40 years ago, left leg bypass Past Anesthesia/Blood Transfusion Reactions: No Reported Reaction Past Psychological History: No Psychological Hx Reported Smoking Status: Current every day smoker Past Alcohol Use History: Heavy Past Drug Use History: None Reported - Past Family History Father Additional Family Medical History / Comment(s): lung cancer Brother(s) Additional Family Medical History / Comment(s): lung cancer Medications and Allergies Home Medications Medication Instructions Recorded Confirmed Type Aspirin 325 mg PO DAILY #30 tab 07/31/16 06/25/17 Rx Atorvastatin [Lipitor] 20 mg PO HS #30 tab 07/31/16 06/25/17 Rx Furosemide [Lasix] 40 mg PO BID@0900,1600 #60 tab 07/31/16 06/25/17 Rx Metoprolol Tartrate [Lopressor] 25 mg PO BID #60 tab 07/31/16 06/25/17 Rx Cholecalciferol [Vitamin D3] 1,000 unit PO DAILY 06/25/17 06/25/17 History Losartan Potassium 100 mg PO DAILY 06/25/17 06/25/17 History Allergies Allergy/AdvReac Type Severity Reaction Status Date / Time No Known Allergies Allergy Verified 06/25/17 17:31 Physical Exam Vitals: Vital Signs Temp Pulse Pulse Resp BP BP Pulse Ox 06/26/17 07:00 99.1 F 97 16 156/85 92 L 06/25/17 21:00 98.2 F 99 18 137/81 92 L 06/25/17 19:53 98.6 F 104 H 16 127/65 96 06/25/17 18:50 108 H 16 148/86 91 L 06/25/17 16:07 99.0 F 115 H 18 166/77 96 Intake and Output 06/25/17 06/26/17 06/26/17 22:59 06:59 14:59 Intake Total 1160 Output Total 1100 Balance 60 Intake: Oral 1160 Output: Urine 1100 Other: Weight 97.976 kg PHYSICAL EXAMINATION: GENERAL: The patient is alert and oriented x3, not in any acute distress. Well developed, well nourished. HEENT: Pupils are round and equally reacting to light. EOMI. No scleral icterus. No conjunctival pallor. Normocephalic, atraumatic. No pharyngeal erythema. No thyromegaly. CARDIOVASCULAR: S1 and S2 present. No murmurs, rubs, or gallops. PULMONARY: Chest is clear to auscultation, no wheezing or crackles. ABDOMEN: Soft, nontender, nondistended, normoactive bowel sounds. No palpable organomegaly. MUSCULOSKELETAL: No joint swelling or deformity. EXTREMITIES: No cyanosis, clubbing, or pedal edema. 2+ pedal edema to the left with extensive ulcers to the pretibial and ankle areas. Yellow exudate. Patient has a small wound to the right pretibial area with serous drainage. Patient has multiple ulcerations in the left leg deep stage 3-4 NEUROLOGICAL: Gross neurological examination did not reveal any focal deficits. SKIN: No rashes. Results CBC & Chem 7: 06/25/17 17:34 06/25/17 17:34 Labs: Abnormal Lab Results - Last 24 Hours (Table) 06/25/17 06/25/17 06/25/17 Range/Units 17:34 17:34 18:50 Neutrophils # 7.9 H (1.3-7.7) k/uL Sodium 136 L (137-145) mmol/L Glucose 105 H (74-99) mg/dL Alkaline Phosphatase 138 H (38-126) U/L Urine Protein Trace H (Negative) Microbiology - Last 24 Hours (Table) 06/25/17 17:34 Gram Stain - Preliminary Leg - Left Wound Culture - Preliminary 06/25/17 18:50 Urine Culture - Preliminary Urine,Voided Thrombosis Risk Factor Assmnt - Choose All That Apply Any of the Below Risk Factors Present?: Yes Each Factor Represents 1 point: Obesity (BMI >25) Other Risk Factors: Yes Each Risk Factor Represents 2 Points: Age 61-74 years Other congenital or acquired thrombophilia - If yes, enter type in comment: No Thrombosis Risk Factor Assessment Total Risk Factor Score: 3 Thrombosis Risk Factor Assessment Level: Moderate Risk Assessment and Plan Plan: -Infected lower bilateral lower limb ulcerations:. Infectious disease was consulted, patient is on vancomycin and Zosyn and risk of surgery was consulted as well. Continue with medical any local wound care. -Nicotine abuse: Counseling was provided patient may have COPD is not in acute exacerbation at this point of time -Hyperlipidemia -Hypertension -Peripheral vascular disease. For above-mentioned chronic medical problems patient will be resumed on appropriate home medications.
--- NOTE | 2017-06-26 13:37 | CONS ---
DATE OF CONSULTATION: 06/26/2017 This is a 67-year-old gentleman who is well known to me from the past. He had a left fem-pop graft done about 5 years ago. Then he had some ulcer on his left ankle for that he use to come regularly at the wound clinic and he stopped coming for the last year or so. Today he came to the emergency room. He has been admitted and I was consulted for further evaluation. MEDICAL HISTORY: History of hypertension, coronary artery disease. PERSONAL HISTORY: Long-standing history of smoking, continues to smoke. The patient has come with multiple ulcer to the ibrahim area and to the medial aspect of the ankle and going in the foot. There is significant surrounding cellulitis and swelling. X-ray showed no evidence of osteomyelitis. The patient has been admitted and I was consulted for further evaluation. The patient is on IV antibiotics. PHYSICAL EXAMINATION: On examination, his neck is supple. Trachea central. Chest is clear. Abdomen is soft. Femorals are 1+ by the Doppler. The patient has a large ulcer on his left lower extremity involving the anterior aspect of the ibrahim and mid aspect of the ankle with a lot of yellowish fibrinous material present in the wound. PLAN: The plan is patient will be treated with local wound care using Dakin's solution to clean the wound and we have used Medihoney gel. At this point, there is marked swelling of the lower extremity. Prognosis is guarded. Most likely, this gentleman will need a major amputation. We will continue with local wound care and IV antibiotic. Thank you very much, we will follow with you. MMVIRAL / IJN: [id number] / KEILY
[2017-06-26 15:47] VITALS: BMI 30.1
--- NOTE | 2017-06-26 17:18 | NM ---
EXAMINATION TYPE: NM bone 3 phase DATE OF EXAM: 06/26/2017 COMPARISON: NONE HISTORY: Leg ulcers. Possible osteomyelitis. Triple phase bone scintigraphy was performed following the injection of27.0 mCi Tc 99m MDP. Immediat e images and 3 hours post injection images acquired. FINDINGS: The flow study shows slight increased blood flow in the left lower leg compared to the right. On the delayed images there is slight increased uptake in the mid shaft of the left tibia at the site of old healed fracture. The uptake is less than I would expect for osteomyelitis. There is increased uptake at the right first MP joint. I do not see any significant increased uptake at the left ankle. IMPRESSION: Very minimal hyperemia of the left lower leg consistent with cellulitis. No evidence of osteomyelitis .
[2017-06-26] MEDS: HYDROmorphone 2 MG TAB PO PRN ×2 (18:05→21:12)
[2017-06-26] MEDS: NICOTINE 21MG/24HR PATCH TRANSDERM SCH (18:34)
[2017-06-26] MEDS: ATORVASTATIN 20 MG TAB PO SCH (21:07)
--- NOTE | 2017-06-26 23:27 | P.CON ---
Consult Note - . Consult date: 06/26/17 Assessment/Plan:: This is a 67-year-old male patient well known to ID service as he has been treated for chronic lower extremity wounds in the past with known peripheral vascular disease and previous bypass on the left.. He has had these for many years. Patient states that about the last month as well as became worse and he has had increased pain nausea and chills. He states he has been using bag balm, medihoney at home without any improvement. He has not been on any antibiotics. Patient presented to [facility] emergency center currently afebrile with white count of 10.1, creatinine 0.7. Alkaline phosphatase 138. Urinalysis was negative for urinary tract infection. Urine culture is in process and will culture and Gram stain are pending. Blood cultures status received. Patient was started on Zosyn and vancomycin and admitted to the [facility] floor. Patient has been seen by Dr. Will and he has ordered Dakins and therahoney twice daily. There is no immediate plan for debridement. Patient is a smoker one and half packs per day for 45 years. Patient is also drinking at least a sixpack of beer per day. Patient states that he has a previous back injury 40 years ago and has difficulty with his right leg and has frequent falls at home. He denies any recent injury. He denies any new injury to his left lower leg. Please see the consult note is dictated by nurse practitioner Mr. Lauryn Tomlinson. Patient is evidence of marked worsening of the left lower extremity. He has been seen by vascular surgery. Contemplation for angiography and further interventions as noted. Local wound care is ready been initiated. Given prior data vancomycin and Zosyn have been started and are being utilized for now pending further data. Once the surgical plan has been made will be able to determine the course for ongoing antibiotic therapy especially with some further culture data. I agree with evaluation, assessment and plan as dictated by nurse practitioner Mrs. Lauryn Tomlinson.
[2017-06-27] MEDS: HYDROmorphone 2 MG TAB PO PRN ×7 (00:09→20:21)
[2017-06-27] MEDS: VANCOMYCIN 1,500 MG in SODIUM CHLORIDE 0.9% 250 ML IVPB SCH ×3 (02:08→18:06)
[2017-06-27] MEDS ORDERED: KETOROLAC 30 MG/ML 1 ML VIAL IVP STA (02:15)
[2017-06-27] MEDS: PIPERACILLIN-TAZOBACTAM 3.375 GM in DEXTROSE/WATER 1 50ML.BAG IVPB SCH ×3 (04:45→21:10)
[2017-06-27] MEDS: FUROSEMIDE 40 MG TAB PO SCH ×2 (07:56→17:11)
[2017-06-27] MEDS: LOSARTAN 50 MG TAB PO SCH (07:56)
[2017-06-27] MEDS: METOPROLOL TARTRATE 25 MG TAB PO SCH ×2 (07:56→20:28)
[2017-06-27] MEDS: ASPIRIN 325 MG TAB PO SCH (07:56)
[2017-06-27] MEDS: NICOTINE 21MG/24HR PATCH TRANSDERM SCH (07:57)
[2017-06-27] MEDS ORDERED: VANCOMYCIN TROUGH DUE 1 EACH MISC MISCELLANE ONE (08:00)
[2017-06-27 08:19] LABS: Anion Gap 6 mmol/L; Blood Urea Nitrogen 15 mg/dL (9-20); Carbon Dioxide 27 mmol/L (22-30); Chloride 105 mmol/L (98-107); Glucose 111 mg/dL (74-99); Potassium 4.4 mmol/L (3.5-5.1); Sodium 138 mmol/L (137-145)
[2017-06-27] MEDS: KETOROLAC 30 MG/ML 1 ML VIAL IVP PRN ×2 (09:05→19:16)
[2017-06-27] MEDS: SODIUM HYPOCHLORITE 0.5% 480 ML BOT MISCELLANE SCH ×2 (10:54→22:20)
[2017-06-27] MEDS ORDERED: PNEUMOCOCCAL VACC-PNEUMOVAX 23 25 MCG/0.5 ML VIAL IM ONE (11:55)
[2017-06-27] MEDS ORDERED: INFLUENZA VACCINE (6 MOS+) 60 MCG/0.5 ML SYRINGE IM ONE (11:55)
[2017-06-27] MEDS: CHOLECALCIFEROL 1,000 UNIT TAB PO SCH (12:14)
--- NOTE | 2017-06-27 16:48 | P.PN ---
Subjective 67-year-old gentleman was admitted secondary to bilateral lower limb ulcerations possible infected ulcerations, infectious disease evaluated the patient patient on broad-spectrum antibiotics Zosyn and vancomycin. Constitutional: Denied any fatigue denied any fever. Cardio vascular: denied any chest pain, palpitations Gastrointestinal denied any nausea vomiting Pulmonary: Denied any shortness of breath cough Neurologic denied any new focal deficits Objective - Vital Signs Vital signs: Vital Signs Temp 98.4 F 06/27/17 15:00 Pulse 84 06/27/17 15:00 Resp 16 06/27/17 15:00 BP 150/74 06/27/17 15:00 Pulse Ox 94 L 06/27/17 15:00 Intake & Output 06/26/17 06/27/17 06/27/17 18:59 06:59 18:59 Intake Total 240 1500 480 Output Total 1200 2100 110 Balance -960 -600 370 Weight 97.976 kg Intake: Oral 240 1500 480 Output: Urine 1200 2100 110 Other: # Bowel Movements 0 1 - Exam PHYSICAL EXAMINATION: GENERAL: The patient is alert and oriented x3, not in any acute distress. Well developed, well nourished. HEENT: Pupils are round and equally reacting to light. EOMI. No scleral icterus. No conjunctival pallor. Normocephalic, atraumatic. No pharyngeal erythema. No thyromegaly. CARDIOVASCULAR: S1 and S2 present. No murmurs, rubs, or gallops. PULMONARY: Chest is clear to auscultation, no wheezing or crackles. ABDOMEN: Soft, nontender, nondistended, normoactive bowel sounds. No palpable organomegaly. MUSCULOSKELETAL: No joint swelling or deformity. EXTREMITIES: No cyanosis, clubbing, or pedal edema. 2+ pedal edema to the left with extensive ulcers to the pretibial and ankle areas. Yellow exudate. Patient has a small wound to the right pretibial area with serous drainage. Patient has multiple ulcerations in the left leg deep stage 3-4 NEUROLOGICAL: Gross neurological examination did not reveal any focal deficits. SKIN: No rashes. - Labs CBC & Chem 7: 06/25/17 17:34 06/27/17 07:28 Labs: Abnormal Lab Results - Last 24 Hours (Table) 06/27/17 Range/Units 07:28 Glucose 111 H (74-99) mg/dL Microbiology - Last 24 Hours (Table) 06/25/17 18:50 Urine Culture - Final Urine,Voided 06/25/17 17:34 Blood Culture - Preliminary Blood No Growth after 24 hours 06/25/17 17:34 Gram Stain - Preliminary Leg - Left Wound Culture - Preliminary Gram Neg Bacilli Presumptive MRSA Assessment and Plan Plan: -Infected lower bilateral lower limb ulcerations:. Infectious disease was consulted, patient is on vancomycin and Zosyn infectious diseases evaluated the patient Continue with medical any local wound care. -Nicotine abuse: Counseling was provided patient may have COPD is not in acute exacerbation at this point of time -Hyperlipidemia -Hypertension -Peripheral vascular disease. For above-mentioned chronic medical problems patient will be continued on present medications
[2017-06-27] MEDS: SODIUM CHLORIDE 0.9% 1,000 ML IV SCH (19:13)
[2017-06-27] MEDS: MELATONIN 5 MG TABLET PO SCH (20:27)
[2017-06-27] MEDS: ATORVASTATIN 20 MG TAB PO SCH (20:28)
[2017-06-27] MEDS: AMITRIPTYLINE HCL 50 MG TAB PO SCH (20:28)
--- NOTE | 2017-06-27 22:32 | P.PN ---
Subjective Progress Note Date: 06/27/17 Principal diagnosis: Severe peripheral vascular disease This is a 67-year-old male patient well known to ID service as he has been treated for chronic lower extremity wounds in the past with known peripheral vascular disease and previous bypass on the left.. He has had these for many years. Patient states that about the last month as well as became worse and he has had increased pain nausea and chills. He states he has been using bag balm, medihoney at home without any improvement. He has not been on any antibiotics. Patient presented to [facility] emergency center currently afebrile with white count of 10.1, creatinine 0.7. Alkaline phosphatase 138. Urinalysis was negative for urinary tract infection. Urine culture is in process and will culture and Gram stain are pending. Blood cultures status received. Patient was started on Zosyn and vancomycin and admitted to the [facility] floor. Patient has been seen by Dr. Will and he has ordered Dakins and therahoney twice daily. There is no immediate plan for debridement. Patient is a smoker one and half packs per day for 45 years. Patient is also drinking at least a sixpack of beer per day. Patient states that he has a previous back injury 40 years ago and has difficulty with his right leg and has frequent falls at home. He denies any recent injury. He denies any new injury to his left lower leg. 06/27/2017 the patient remains quite miserable. He is having ongoing significant pain to his left leg. The current local wound care has helped some odor but he is still having significant pain. Further vascular evaluation is in process. Having no difficulties with current antibiotic therapy. Objective - Vital Signs Vital signs: Vital Signs Temp 98.4 F 06/27/17 15:00 Pulse 84 06/27/17 15:00 Resp 16 06/27/17 15:00 BP 190/95 06/27/17 20:42 Pulse Ox 94 L 06/27/17 15:00 Intake & Output 06/27/17 06/27/17 06/28/17 06:59 18:59 06:59 Intake Total 1500 480 Output Total 2100 110 Balance -600 370 Intake: Oral 1500 480 Output: Urine 2100 110 Other: # Bowel Movements 1 - Exam Gen: This is a 67-year-old male patient. He is sitting up in bed and appears to be comfortable. HEENT: Head is atraumatic, normocephalic. Pupils equal, round. Sclerae is anicteric. NECK: Supple. No JVD. No lymphadenopathy. No thyromegaly. LUNGS: Clear to auscultation. No wheezes or rhonchi. No intercostal retractions. HEART: Regular rate and rhythm. No murmur. ABDOMEN: Soft. Bowel sounds are present. No masses. No tenderness. EXTREMITIES: 2+ pedal edema to the left with extensive ulcers to the pretibial and ankle areas. Very tender. Continues to have a large amount of yellow exudate.. Patient has a small wound to the right pretibial area with serous drainage. Dorsalis pedis is weak bilaterally. NEUROLOGICAL: Patient is awake, alert and oriented x3. - Labs CBC & Chem 7: 06/25/17 17:34 06/27/17 07:28 Labs: Abnormal Lab Results - Last 24 Hours (Table) 06/27/17 Range/Units 07:28 Glucose 111 H (74-99) mg/dL Microbiology - Last 24 Hours (Table) 06/25/17 17:34 Blood Culture - Preliminary Blood No Growth after 48 hours 06/25/17 17:34 Gram Stain - Final Leg - Left Wound Culture - Final Providencia rettgeri Methicillin resist S. aureus 06/25/17 18:50 Urine Culture - Final Urine,Voided Laboratory Results WBC 10.1 k/uL (3.8-10.6) 06/25/17 17:34 RBC 4.36 m/uL (4.30-5.90) 06/25/17 17:34 Hgb 13.8 gm/dL (13.0-17.5) 06/25/17 17:34 Hct 42.2 % (39.0-53.0) 06/25/17 17:34 MCV 96.8 fL (80.0-100.0) 06/25/17 17:34 MCH 31.6 pg (25.0-35.0) 06/25/17 17:34 MCHC 32.6 g/dL (31.0-37.0) 06/25/17 17:34 RDW 14.9 % (11.5-15.5) 06/25/17 17:34 Plt Count 342 k/uL (150-450) 06/25/17 17:34 Neutrophils % 78 % 06/25/17 17:34 Lymphocytes % 10 % 06/25/17 17:34 Monocytes % 7 % 06/25/17 17:34 Eosinophils % 2 % 06/25/17 17:34 Basophils % 0 % 06/25/17 17:34 Neutrophils # 7.9 k/uL (1.3-7.7) H 06/25/17 17:34 Lymphocytes # 1.1 k/uL (1.0-4.8) 06/25/17 17:34 Monocytes # 0.7 k/uL (0-1.0) 06/25/17 17:34 Eosinophils # 0.2 k/uL (0-0.7) 06/25/17 17:34 Basophils # 0.0 k/uL (0-0.2) 06/25/17 17:34 PT 9.2 sec (9.0-12.0) 06/25/17 17:34 INR 0.9 (<1.2) 06/25/17 17:34 APTT 24.8 sec (22.0-30.0) 06/25/17 17:34 Sodium 138 mmol/L (137-145) 06/27/17 07:28 Potassium 4.4 mmol/L (3.5-5.1) 06/27/17 07:28 Chloride 105 mmol/L (98-107) 06/27/17 07:28 Carbon Dioxide 27 mmol/L (22-30) 06/27/17 07:28 Anion Gap 6 mmol/L 06/27/17 07:28 BUN 15 mg/dL (9-20) 06/27/17 07:28 Creatinine 0.80 mg/dL (0.66-1.25) 06/27/17 07:28 Est GFR (MDRD) Af Amer >60 (>60 ml/min/1.73 sqM) 06/27/17 07:28 Est GFR (MDRD) Non-Af >60 (>60 ml/min/1.73 sqM) 06/27/17 07:28 Glucose 111 mg/dL (74-99) H 06/27/17 07:28 Plasma Lactic Acid Elder 0.7 mmol/L (0.7-2.0) 06/25/17 17:43 Calcium 9.0 mg/dL (8.4-10.2) 06/27/17 07:28 Total Bilirubin 0.4 mg/dL (0.2-1.3) 06/25/17 17:34 AST 29 U/L (17-59) 06/25/17 17:34 ALT 32 U/L (21-72) 06/25/17 17:34 Alkaline Phosphatase 138 U/L (38-126) H 06/25/17 17:34 Total Protein 6.7 g/dL (6.3-8.2) 06/25/17 17:34 Albumin 4.0 g/dL (3.5-5.0) 06/25/17 17:34 Urine Color Yellow 06/25/17 18:50 Urine Appearance Clear (Clear) 06/25/17 18:50 Urine pH 6.5 (5.0-8.0) 06/25/17 18:50 Ur Specific [place] 1.008 (1.001-1.035) 06/25/17 18:50 Urine Protein Trace (Negative) H 06/25/17 18:50 Urine Glucose (UA) Negative (Negative) 06/25/17 18:50 Urine Ketones Negative (Negative) 06/25/17 18:50 Urine Blood Negative (Negative) 06/25/17 18:50 Urine Nitrite Negative (Negative) 06/25/17 18:50 Urine Bilirubin Negative (Negative) 06/25/17 18:50 Urine Urobilinogen <2.0 mg/dL (<2.0) 06/25/17 18:50 Ur Leukocyte Esterase Negative (Negative) 06/25/17 18:50 Vancomycin Trough 24.8 ug/mL 06/27/17 07:28 Microbiology 06/25/17 17:34 Blood Blood Culture - Preliminary No Growth after 48 hours 06/25/17 17:34 Leg - Left Gram Stain - Final 06/25/17 17:34 Leg - Left Wound Culture - Final Providencia rettgeri Methicillin resist S. aureus 06/25/17 18:50 Urine,Voided Urine Culture - Final Assessment and Plan (1) Leg wound, left Narrative/Plan: 67-year-old male has presented to hospital with increasing pain and discomfort involving his left leg. Local wound care has been initiated and that has helped some drainage and odor but is still having significant pain. Bone scan is negative for underlying osteomyelitis. However the patient appears to have critical bloodflow issues to the limb. He has been seen by vascular surgery. Further workup appears to be in process however they did state that the patient likely would need an amputation for this progressive disease state. Unclear if the patient would benefit for further vascular evaluation such as with Dr. Avila. Cultures show evidence of MRSA and providencia for which current antibiotics of Zosyn and vancomycin are adequate at this time. At this time await vascular plans to determine overall course of care. Current Visit: Yes Status: Acute Code(s): S81.802A - UNSPECIFIED OPEN WOUND , LEFT LOWER LEG, INITIAL ENCOUNTER SNOMED Code(s): 069657052 (2) Nicotine dependence Current Visit: No Status: Acute Code(s): F17.200 - NICOTINE DEPENDENCE, UNSPECIFIED, UNCOMPLICATED SNOMED Code(s): 70827986 (3) COPD (chronic obstructive pulmonary disease) Current Visit: Yes Status: Acute Code(s): J44.9 - CHRONIC OBSTRUCTIVE PULMONARY DISEASE, UNSPECIFIED SNOMED Code(s): 12113881 (4) MRSA (methicillin resistant Staphylococcus aureus) infection Current Visit: Yes Status: Acute Code(s): A49.02 - METHICILLIN RESIS STAPH INFECTION, UNSP SITE SNOMED Code(s): 382509702
[2017-06-28] MEDS: PIPERACILLIN-TAZOBACTAM 3.375 GM in DEXTROSE/WATER 1 50ML.BAG IVPB SCH ×3 (04:46→20:42)
[2017-06-28] MEDS: HYDROmorphone 2 MG TAB PO PRN ×3 (04:50→10:48)
[2017-06-28] MEDS: VANCOMYCIN 1,500 MG in SODIUM CHLORIDE 0.9% 250 ML IVPB SCH ×2 (08:17→18:26)
[2017-06-28] MEDS: NICOTINE 21MG/24HR PATCH TRANSDERM SCH (08:17)
[2017-06-28] MEDS: LOSARTAN 50 MG TAB PO SCH (08:18)
[2017-06-28] MEDS: METOPROLOL TARTRATE 25 MG TAB PO SCH ×2 (08:18→20:35)
[2017-06-28] MEDS: ASPIRIN 325 MG TAB PO SCH (08:19)
[2017-06-28] MEDS: FUROSEMIDE 40 MG TAB PO SCH ×2 (08:19→15:55)
[2017-06-28 09:38] LABS: Anion Gap 6 mmol/L; Blood Urea Nitrogen 15 mg/dL (9-20); Calcium 9.2 mg/dL (8.4-10.2); Carbon Dioxide 30 mmol/L (22-30); Chloride 103 mmol/L (98-107); Glucose 175 mg/dL (74-99); Potassium 4.5 mmol/L (3.5-5.1); Sodium 139 mmol/L (137-145)
[2017-06-28] MEDS: SODIUM HYPOCHLORITE 0.5% 480 ML BOT MISCELLANE SCH (10:49)
[2017-06-28] MEDS: KETOROLAC 30 MG/ML 1 ML VIAL IVP PRN (10:49)
[2017-06-28] MEDS: HYDROmorphone 4 MG TABLET PO PRN ×3 (13:33→20:35)
[2017-06-28] MEDS: CHOLECALCIFEROL 1,000 UNIT TAB PO SCH (13:33)
--- NOTE | 2017-06-28 15:57 | P.PN ---
Subjective Progress Note Date: 06/28/17 Principal diagnosis: Severe peripheral vascular disease This is a 67-year-old male patient well known to ID service as he has been treated for chronic lower extremity wounds in the past with known peripheral vascular disease and previous bypass on the left.. He has had these for many years. Patient states that about the last month as well as became worse and he has had increased pain nausea and chills. He states he has been using bag balm, medihoney at home without any improvement. He has not been on any antibiotics. Patient presented to [facility] emergency center currently afebrile with white count of 10.1, creatinine 0.7. Alkaline phosphatase 138. Urinalysis was negative for urinary tract infection. Urine culture is in process and will culture and Gram stain are pending. Blood cultures status received. Patient was started on Zosyn and vancomycin and admitted to the [facility] floor. Patient has been seen by Dr. Will and he has ordered Dakins and therahoney twice daily. There is no immediate plan for debridement. Patient is a smoker one and half packs per day for 45 years. Patient is also drinking at least a sixpack of beer per day. Patient states that he has a previous back injury 40 years ago and has difficulty with his right leg and has frequent falls at home. He denies any recent injury. He denies any new injury to his left lower leg. 06/27/2017 the patient remains quite miserable. He is having ongoing significant pain to his left leg. The current local wound care has helped some odor but he is still having significant pain. Further vascular evaluation is in process. Having no difficulties with current antibiotic therapy. 06/28/2017 patient has some improvement. Still having severe pain to the left limb likes to have it hanging over the side of the bed. We discussed Dr. Will's notation of possible amputation for which Mr. Matias completely refuses. Objective - Vital Signs Vital signs: Vital Signs Temp 98.0 F 06/28/17 07:00 Pulse 97 06/28/17 07:00 Resp 18 06/28/17 07:00 BP 155/100 06/28/17 10:52 Pulse Ox 92 L 06/28/17 07:00 Intake & Output 02/01/18 02/02/18 02/02/18 18:59 06:59 18:59 Intake Total 480 300 Output Total 110 1600 300 Balance 370 -1600 0 Intake: Intake, IV Titration 300 Amount Piperacillin-Tazobactam 3 50 .375 gm In Dextrose/Water 1 50ml.bag @ 12.5 mls/hr IVPB Q8H [facility] Rx#: [id number] Vancomycin 1,500 mg In 250 Sodium Chloride 0.9% 250 ml @ 125 mls/hr IVPB 0800 ,1800 [facility] Rx#:[id number] Oral 480 Output: Urine 110 1600 300 Other: Voiding Method Urinal # Bowel Movements 1 - Exam Gen: This is a 67-year-old male patient. He is sitting up in bed and appears to be comfortable. HEENT: Head is atraumatic, normocephalic. Pupils equal, round. Sclerae is anicteric. NECK: Supple. No JVD. No lymphadenopathy. No thyromegaly. LUNGS: Clear to auscultation. No wheezes or rhonchi. No intercostal retractions. HEART: Regular rate and rhythm. No murmur. ABDOMEN: Soft. Bowel sounds are present. No masses. No tenderness. EXTREMITIES: 2+ pedal edema to the left with extensive ulcers to the pretibial and ankle areas. However the surrounding erythema does appear to be somewhat improved today with antibiotic therapy. Very tender. Continues to have a large amount of yellow exudate.. Patient has a small wound to the right pretibial area with serous drainage. Dorsalis pedis is weak bilaterally. NEUROLOGICAL: Patient is awake, alert and oriented x3. - Labs CBC & Chem 7: 06/25/17 17:34 06/28/17 08:53 Labs: Abnormal Lab Results - Last 24 Hours (Table) 06/28/17 Range/Units 08:53 Glucose 175 H (74-99) mg/dL Microbiology - Last 24 Hours (Table) 06/25/17 17:34 Blood Culture - Preliminary Blood No Growth after 48 hours 06/25/17 17:34 Gram Stain - Final Leg - Left Wound Culture - Final Providencia rettgeri Methicillin resist S. aureus Laboratory Results WBC 10.1 k/uL (3.8-10.6) 06/25/17 17:34 RBC 4.36 m/uL (4.30-5.90) 06/25/17 17:34 Hgb 13.8 gm/dL (13.0-17.5) 06/25/17 17:34 Hct 42.2 % (39.0-53.0) 06/25/17 17:34 MCV 96.8 fL (80.0-100.0) 06/25/17 17:34 MCH 31.6 pg (25.0-35.0) 06/25/17 17:34 MCHC 32.6 g/dL (31.0-37.0) 06/25/17 17:34 RDW 14.9 % (11.5-15.5) 06/25/17 17:34 Plt Count 342 k/uL (150-450) 06/25/17 17:34 Neutrophils % 78 % 06/25/17 17:34 Lymphocytes % 10 % 06/25/17 17:34 Monocytes % 7 % 06/25/17 17:34 Eosinophils % 2 % 06/25/17 17:34 Basophils % 0 % 06/25/17 17:34 Neutrophils # 7.9 k/uL (1.3-7.7) H 06/25/17 17:34 Lymphocytes # 1.1 k/uL (1.0-4.8) 06/25/17 17:34 Monocytes # 0.7 k/uL (0-1.0) 06/25/17 17:34 Eosinophils # 0.2 k/uL (0-0.7) 06/25/17 17:34 Basophils # 0.0 k/uL (0-0.2) 06/25/17 17:34 PT 9.2 sec (9.0-12.0) 06/25/17 17:34 INR 0.9 (<1.2) 06/25/17 17:34 APTT 24.8 sec (22.0-30.0) 06/25/17 17:34 Sodium 139 mmol/L (137-145) 06/28/17 08:53 Potassium 4.5 mmol/L (3.5-5.1) 06/28/17 08:53 Chloride 103 mmol/L (98-107) 06/28/17 08:53 Carbon Dioxide 30 mmol/L (22-30) 06/28/17 08:53 Anion Gap 6 mmol/L 06/28/17 08:53 BUN 15 mg/dL (9-20) 06/28/17 08:53 Creatinine 0.96 mg/dL (0.66-1.25) 06/28/17 08:53 Est GFR (MDRD) Af Amer >60 (>60 ml/min/1.73 sqM) 06/28/17 08:53 Est GFR (MDRD) Non-Af >60 (>60 ml/min/1.73 sqM) 06/28/17 08:53 Glucose 175 mg/dL (74-99) H 06/28/17 08:53 Plasma Lactic Acid Elder 0.7 mmol/L (0.7-2.0) 06/25/17 17:43 Calcium 9.2 mg/dL (8.4-10.2) 06/28/17 08:53 Total Bilirubin 0.4 mg/dL (0.2-1.3) 06/25/17 17:34 AST 29 U/L (17-59) 06/25/17 17:34 ALT 32 U/L (21-72) 06/25/17 17:34 Alkaline Phosphatase 138 U/L (38-126) H 06/25/17 17:34 Total Protein 6.7 g/dL (6.3-8.2) 06/25/17 17:34 Albumin 4.0 g/dL (3.5-5.0) 06/25/17 17:34 Urine Color Yellow 06/25/17 18:50 Urine Appearance Clear (Clear) 06/25/17 18:50 Urine pH 6.5 (5.0-8.0) 06/25/17 18:50 Ur Specific [place] 1.008 (1.001-1.035) 06/25/17 18:50 Urine Protein Trace (Negative) H 06/25/17 18:50 Urine Glucose (UA) Negative (Negative) 06/25/17 18:50 Urine Ketones Negative (Negative) 06/25/17 18:50 Urine Blood Negative (Negative) 06/25/17 18:50 Urine Nitrite Negative (Negative) 06/25/17 18:50 Urine Bilirubin Negative (Negative) 06/25/17 18:50 Urine Urobilinogen <2.0 mg/dL (<2.0) 06/25/17 18:50 Ur Leukocyte Esterase Negative (Negative) 06/25/17 18:50 Vancomycin Trough 24.8 ug/mL 06/27/17 07:28 Microbiology 06/25/17 17:34 Blood Blood Culture - Preliminary No Growth after 48 hours 06/25/17 17:34 Leg - Left Gram Stain - Final 06/25/17 17:34 Leg - Left Wound Culture - Final Providencia rettgeri Methicillin resist S. aureus 06/25/17 18:50 Urine,Voided Urine Culture - Final Assessment and Plan (1) Leg wound, left Narrative/Plan: 67-year-old male has presented to hospital with increasing pain and discomfort involving his left leg. Local wound care has been initiated and that has helped some drainage and odor but is still having significant pain. Bone scan is negative for underlying osteomyelitis. However the patient appears to have critical bloodflow issues to the limb. He has been seen by vascular surgery. Further workup appears to be in process however they did state that the patient likely would need an amputation for this progressive disease state. At this time await further input from the vascular surgeon as far as overall plan. Will likely need outpatient intravenous antibiotic therapy at his local hospital. Cultures show evidence of MRSA and providencia for which current antibiotics of Zosyn and vancomycin are adequate at this time. At this time await vascular plans to determine overall course of care. Patient relates that he does not want amputation and would refuse one. Current Visit: Yes Status: Acute Code(s): S81.802A - UNSPECIFIED OPEN WOUND , LEFT LOWER LEG, INITIAL ENCOUNTER SNOMED Code(s): 980264981 (2) Nicotine dependence Current Visit: No Status: Acute Code(s): F17.200 - NICOTINE DEPENDENCE, UNSPECIFIED, UNCOMPLICATED SNOMED Code(s): 46142947 (3) COPD (chronic obstructive pulmonary disease) Current Visit: Yes Status: Acute Code(s): J44.9 - CHRONIC OBSTRUCTIVE PULMONARY DISEASE, UNSPECIFIED SNOMED Code(s): 47356066 (4) MRSA (methicillin resistant Staphylococcus aureus) infection Current Visit: Yes Status: Acute Code(s): A49.02 - METHICILLIN RESIS STAPH INFECTION, UNSP SITE SNOMED Code(s): 298273478
[2017-06-28] MEDS: AMITRIPTYLINE HCL 50 MG TAB PO SCH ×2 (20:35→20:37)
[2017-06-28] MEDS: MELATONIN 5 MG TABLET PO SCH (20:35)
[2017-06-28] MEDS: ATORVASTATIN 20 MG TAB PO SCH (20:35)
[2017-06-29] MEDS: SODIUM CHLORIDE 0.9% 1,000 ML IV SCH ×2 (00:50→17:44)
[2017-06-29] MEDS: SODIUM HYPOCHLORITE 0.5% 480 ML BOT MISCELLANE SCH ×3 (00:52→22:25)
[2017-06-29] MEDS: HYDROmorphone 4 MG TABLET PO PRN ×6 (03:25→21:48)
[2017-06-29] MEDS: PIPERACILLIN-TAZOBACTAM 3.375 GM in DEXTROSE/WATER 1 50ML.BAG IVPB SCH ×3 (03:25→20:31)
[2017-06-29] MEDS ORDERED: VANCOMYCIN TROUGH DUE 1 EACH MISC MISCELLANE ONE (07:00)
[2017-06-29 08:06] LABS: Anion Gap 7 mmol/L; Blood Urea Nitrogen 13 mg/dL (9-20); Calcium 9.1 mg/dL (8.4-10.2); Carbon Dioxide 29 mmol/L (22-30); Chloride 104 mmol/L (98-107); Glucose 105 mg/dL (74-99); Potassium 4.2 mmol/L (3.5-5.1); Sodium 140 mmol/L (137-145)
[2017-06-29] MEDS: VANCOMYCIN 1,500 MG in SODIUM CHLORIDE 0.9% 250 ML IVPB SCH ×2 (08:07→17:44)
[2017-06-29] MEDS: ASPIRIN 325 MG TAB PO SCH (08:07)
[2017-06-29] MEDS: METOPROLOL TARTRATE 25 MG TAB PO SCH ×2 (08:08→20:30)
[2017-06-29] MEDS: FUROSEMIDE 40 MG TAB PO SCH ×2 (08:08→15:17)
[2017-06-29] MEDS: LOSARTAN 50 MG TAB PO SCH (08:08)
[2017-06-29] MEDS: NICOTINE 21MG/24HR PATCH TRANSDERM SCH (08:13)
[2017-06-29] MEDS: KETOROLAC 30 MG/ML 1 ML VIAL IVP PRN ×2 (11:18→21:48)
[2017-06-29] MEDS: CHOLECALCIFEROL 1,000 UNIT TAB PO SCH (12:56)
--- NOTE | 2017-06-29 14:34 | P.PN ---
Subjective Progress Note Date: 06/28/17 67-year-old gentleman was admitted secondary to bilateral lower limb ulcerations possible infected ulcerations, infectious disease evaluated the patient patient on broad-spectrum antibiotics Zosyn and vancomycin. 06/28/2017 No overnight events continue present antibiotics and infectious disease and vascular surgery evaluating the patient Constitutional: Denied any fatigue denied any fever. Cardio vascular: denied any chest pain, palpitations Gastrointestinal denied any nausea vomiting Pulmonary: Denied any shortness of breath cough Neurologic denied any new focal deficits Objective - Vital Signs Vital signs: Vital Signs Temp 98.9 F 06/29/17 09:22 Pulse 95 06/29/17 07:00 Resp 16 06/29/17 07:00 BP 164/84 06/29/17 07:00 Pulse Ox 92 L 06/29/17 07:00 Intake & Output 06/28/17 06/29/17 06/29/17 18:59 06:59 18:59 Intake Total 300 320 Output Total 300 1500 Balance 0 -1500 320 Intake: Intake, IV Titration 300 Amount Piperacillin-Tazobactam 3 50 .375 gm In Dextrose/Water 1 50ml.bag @ 12.5 mls/hr IVPB Q8H [facility] Rx#: [id number] Vancomycin 1,500 mg In 250 Sodium Chloride 0.9% 250 ml @ 125 mls/hr IVPB 0800 ,1800 [facility] Rx#:[id number] Oral 320 Output: Urine 300 1500 Other: Voiding Method Urinal - Exam PHYSICAL EXAMINATION: GENERAL: The patient is alert and oriented x3, not in any acute distress. Well developed, well nourished. HEENT: Pupils are round and equally reacting to light. EOMI. No scleral icterus. No conjunctival pallor. Normocephalic, atraumatic. No pharyngeal erythema. No thyromegaly. CARDIOVASCULAR: S1 and S2 present. No murmurs, rubs, or gallops. PULMONARY: Chest is clear to auscultation, no wheezing or crackles. ABDOMEN: Soft, nontender, nondistended, normoactive bowel sounds. No palpable organomegaly. MUSCULOSKELETAL: No joint swelling or deformity. EXTREMITIES: No cyanosis, clubbing, or pedal edema. 2+ pedal edema to the left with extensive ulcers to the pretibial and ankle areas. Yellow exudate. Patient has a small wound to the right pretibial area with serous drainage. Patient has multiple ulcerations in the left leg deep stage 3-4 NEUROLOGICAL: Gross neurological examination did not reveal any focal deficits. SKIN: No rashes. - Labs CBC & Chem 7: 06/25/17 17:34 06/29/17 07:21 Labs: Abnormal Lab Results - Last 24 Hours (Table) 06/29/17 Range/Units 07:21 Glucose 105 H (74-99) mg/dL Microbiology - Last 24 Hours (Table) 06/25/17 17:34 Blood Culture - Preliminary Blood No Growth after 72 hours Assessment and Plan Plan: -Infected lower bilateral lower limb ulcerations:. Patient is being can you done when questioned Zosyn and infectious disease and restless surgery evaluated the patient Continue with medical any local wound care. -Nicotine abuse: Counseling was provided patient may have COPD is not in acute exacerbation at this point of time -Hyperlipidemia -Hypertension -Peripheral vascular disease. For above-mentioned chronic medical problems patient will be continued on present medications
--- NOTE | 2017-06-29 14:38 | P.PN ---
Subjective 67-year-old gentleman was admitted secondary to bilateral lower limb ulcerations possible infected ulcerations, infectious disease evaluated the patient patient on broad-spectrum antibiotics Zosyn and vancomycin. 06/28/2017 No overnight events continue present antibiotics and infectious disease and vascular surgery evaluating the patient 06/29/2017 Continue antibiotics no other significant changes, Dr. Mendoza is recommending IV antibiotics for which patient will need a PICC line on Saturday patient's wound cultures are showing MRSA and Provedencia Constitutional: Denied any fatigue denied any fever. Cardio vascular: denied any chest pain, palpitations Gastrointestinal denied any nausea vomiting Pulmonary: Denied any shortness of breath cough Neurologic denied any new focal deficits Objective - Vital Signs Vital signs: Vital Signs Temp 98.9 F 06/29/17 09:22 Pulse 95 06/29/17 07:00 Resp 16 06/29/17 07:00 BP 164/84 06/29/17 07:00 Pulse Ox 92 L 06/29/17 07:00 Intake & Output 06/28/17 06/29/17 06/29/17 18:59 06:59 18:59 Intake Total 300 320 Output Total 300 1500 Balance 0 -1500 320 Intake: Intake, IV Titration 300 Amount Piperacillin-Tazobactam 3 50 .375 gm In Dextrose/Water 1 50ml.bag @ 12.5 mls/hr IVPB Q8H [facility] Rx#: [id number] Vancomycin 1,500 mg In 250 Sodium Chloride 0.9% 250 ml @ 125 mls/hr IVPB 0800 ,1800 [facility] Rx#:[id number] Oral 320 Output: Urine 300 1500 Other: Voiding Method Urinal - Exam PHYSICAL EXAMINATION: GENERAL: The patient is alert and oriented x3, not in any acute distress. Well developed, well nourished. HEENT: Pupils are round and equally reacting to light. EOMI. No scleral icterus. No conjunctival pallor. Normocephalic, atraumatic. No pharyngeal erythema. No thyromegaly. CARDIOVASCULAR: S1 and S2 present. No murmurs, rubs, or gallops. PULMONARY: Chest is clear to auscultation, no wheezing or crackles. ABDOMEN: Soft, nontender, nondistended, normoactive bowel sounds. No palpable organomegaly. MUSCULOSKELETAL: No joint swelling or deformity. EXTREMITIES: No cyanosis, clubbing, or pedal edema. 2+ pedal edema to the left with extensive ulcers to the pretibial and ankle areas. Yellow exudate. Patient has a small wound to the right pretibial area with serous drainage. Patient has multiple ulcerations in the left leg deep stage 3-4 NEUROLOGICAL: Gross neurological examination did not reveal any focal deficits. SKIN: No rashes. - Labs CBC & Chem 7: 06/25/17 17:34 06/29/17 07:21 Labs: Abnormal Lab Results - Last 24 Hours (Table) 06/29/17 Range/Units 07:21 Glucose 105 H (74-99) mg/dL Microbiology - Last 24 Hours (Table) 06/25/17 17:34 Blood Culture - Preliminary Blood No Growth after 72 hours Assessment and Plan Plan: -Infected lower bilateral lower limb ulcerations:. Patient is being can you done when questioned Zosyn and infectious disease and restless surgery evaluated the patient Continue with medical any local wound care. -Nicotine abuse: Counseling was provided patient may have COPD is not in acute exacerbation at this point of time -Hyperlipidemia -Hypertension -Peripheral vascular disease. For above-mentioned chronic medical problems patient will be continued on present medications
[2017-06-29] MEDS: ATORVASTATIN 20 MG TAB PO SCH (20:30)
[2017-06-29] MEDS ORDERED: SODIUM HYPOCHLORITE 0.5% 480 ML BOT MISCELLANE SCH (21:00)
[2017-06-29] MEDS: MELATONIN 5 MG TABLET PO SCH (23:22)
[2017-06-29] MEDS: AMITRIPTYLINE HCL 50 MG TAB PO SCH (23:22)
[2017-06-30] MEDS: PIPERACILLIN-TAZOBACTAM 3.375 GM in DEXTROSE/WATER 1 50ML.BAG IVPB SCH ×3 (04:45→20:22)
[2017-06-30] MEDS: HYDROmorphone 4 MG TABLET PO PRN ×4 (04:50→20:26)
[2017-06-30] MEDS: KETOROLAC 30 MG/ML 1 ML VIAL IVP PRN ×2 (04:50→16:50)
[2017-06-30] MEDS: VANCOMYCIN 1,500 MG in SODIUM CHLORIDE 0.9% 250 ML IVPB SCH ×2 (08:04→17:46)
[2017-06-30] MEDS: ASPIRIN 325 MG TAB PO SCH (08:05)
[2017-06-30] MEDS: FUROSEMIDE 40 MG TAB PO SCH ×2 (08:05→16:51)
[2017-06-30] MEDS: LOSARTAN 50 MG TAB PO SCH (08:06)
[2017-06-30] MEDS: METOPROLOL TARTRATE 25 MG TAB PO SCH ×2 (08:07→20:21)
[2017-06-30] MEDS: NICOTINE 21MG/24HR PATCH TRANSDERM SCH (08:07)
[2017-06-30 08:08] LABS: HCT 39.3 % (39.0-53.0); HGB 12.7 gm/dL (13.0-17.5); MCH 31.4 pg (25.0-35.0); MCHC 32.3 g/dL (31.0-37.0); MCV 97.4 fL (80.0-100.0); Mean Platelet Volume 7.2; Platelet Count 359 k/uL (150-450); RBC 4.04 m/uL (4.30-5.90); RDW 13.8 % (11.5-15.5); WBC 8.8 k/uL (3.8-10.6)
[2017-06-30 08:29] LABS: Anion Gap 7 mmol/L; Blood Urea Nitrogen 13 mg/dL (9-20); Calcium 9.1 mg/dL (8.4-10.2); Carbon Dioxide 30 mmol/L (22-30); Chloride 104 mmol/L (98-107); Glucose 121 mg/dL (74-99); Potassium 3.9 mmol/L (3.5-5.1); Sodium 141 mmol/L (137-145)
[2017-06-30] MEDS: SODIUM HYPOCHLORITE 0.5% 480 ML BOT MISCELLANE SCH ×2 (10:39→20:22)
--- NOTE | 2017-06-30 11:28 | PN ---
PROGRESS NOTE This is a 67-year-old gentleman who is known to me from the wound clinic. He has been coming to the Wound Clinic for about the past few years. Then he stopped coming. He has a large wound on the left lower extremity involving the anterior aspect of the lower leg and ankle and dorsal aspect of the foot. We have been treating this local wound care and the patient on IV antibiotics under the care of infectious disease. The patient does not want to go for any major surgical intervention. Most likely, he will need an amputation. He does not want to go that route. He wants to continue local wound care. If the patient discharged from the hospital, I will follow in the wound clinic. In the meantime, we will continue local wound care and IV antibiotics. MMVIRAL / EILEENN: [id number] /
--- NOTE | 2017-06-30 11:58 | P.PN ---
Subjective 67-year-old gentleman was admitted secondary to bilateral lower limb ulcerations possible infected ulcerations, infectious disease evaluated the patient patient on broad-spectrum antibiotics Zosyn and vancomycin. 06/28/2017 No overnight events continue present antibiotics and infectious disease and vascular surgery evaluating the patient 06/29/2017 Continue antibiotics no other significant changes, Dr. Mendoza is recommending IV antibiotics for which patient will need a PICC line on Saturday patient's wound cultures are showing MRSA and Provedencia 06/30/2017 No overnight events Constitutional: Denied any fatigue denied any fever. Cardio vascular: denied any chest pain, palpitations Gastrointestinal denied any nausea vomiting Pulmonary: Denied any shortness of breath cough Neurologic denied any new focal deficits Objective - Vital Signs Vital signs: Vital Signs Temp 98.1 F 06/30/17 07:00 Pulse 82 06/30/17 07:00 Resp 16 06/30/17 07:00 BP 173/89 06/30/17 11:12 Pulse Ox 90 L 06/30/17 07:00 Intake & Output 06/29/17 06/30/17 06/30/17 18:59 06:59 18:59 Intake Total 640 Output Total 700 1200 Balance -60 -1200 Intake: Oral 640 Output: Urine 700 1200 Other: Voiding Method Urinal # Voids 3 - Exam PHYSICAL EXAMINATION: GENERAL: The patient is alert and oriented x3, not in any acute distress. Well developed, well nourished. HEENT: Pupils are round and equally reacting to light. EOMI. No scleral icterus. No conjunctival pallor. Normocephalic, atraumatic. No pharyngeal erythema. No thyromegaly. CARDIOVASCULAR: S1 and S2 present. No murmurs, rubs, or gallops. PULMONARY: Chest is clear to auscultation, no wheezing or crackles. ABDOMEN: Soft, nontender, nondistended, normoactive bowel sounds. No palpable organomegaly. MUSCULOSKELETAL: No joint swelling or deformity. EXTREMITIES: No cyanosis, clubbing, or pedal edema. 2+ pedal edema to the left with extensive ulcers to the pretibial and ankle areas. Yellow exudate. Patient has a small wound to the right pretibial area with serous drainage. Patient has multiple ulcerations in the left leg deep stage 3-4 NEUROLOGICAL: Gross neurological examination did not reveal any focal deficits. SKIN: No rashes. - Labs CBC & Chem 7: 06/30/17 07:52 06/30/17 07:52 Labs: Abnormal Lab Results - Last 24 Hours (Table) 06/30/17 06/30/17 Range/Units 07:52 07:52 RBC 4.04 L (4.30-5.90) m/uL Hgb 12.7 L (13.0-17.5) gm/dL Glucose 121 H (74-99) mg/dL Microbiology - Last 24 Hours (Table) 06/25/17 17:34 Blood Culture - Preliminary Blood No Growth after 96 hours Assessment and Plan Plan: -Infected lower bilateral lower limb ulcerations:. Patient is being can you done when questioned Zosyn and infectious disease and restless surgery evaluated the patient Continue with medical any local wound care. -Nicotine abuse: Counseling was provided patient may have COPD is not in acute exacerbation at this point of time -Hyperlipidemia -Hypertension -Peripheral vascular disease. For above-mentioned chronic medical problems patient will be continued on present medications
[2017-06-30] MEDS: CHOLECALCIFEROL 1,000 UNIT TAB PO SCH (13:43)
[2017-06-30] MEDS: SODIUM CHLORIDE 0.9% 1,000 ML IV SCH (17:46)
[2017-06-30] MEDS: ATORVASTATIN 20 MG TAB PO SCH (20:21)
[2017-06-30] MEDS: AMITRIPTYLINE HCL 50 MG TAB PO SCH (20:21)
[2017-06-30] MEDS: MELATONIN 5 MG TABLET PO SCH (20:22)
[2017-07-01] MEDS: PIPERACILLIN-TAZOBACTAM 3.375 GM in DEXTROSE/WATER 1 50ML.BAG IVPB SCH ×3 (03:43→19:59)
[2017-07-01] MEDS: HYDROmorphone 4 MG TABLET PO PRN ×6 (03:46→23:18)
[2017-07-01] MEDS: ASPIRIN 325 MG TAB PO SCH (07:29)
[2017-07-01] MEDS: FUROSEMIDE 40 MG TAB PO SCH ×2 (07:30→15:18)
[2017-07-01] MEDS: METOPROLOL TARTRATE 25 MG TAB PO SCH ×2 (07:30→19:59)
[2017-07-01] MEDS: NICOTINE 21MG/24HR PATCH TRANSDERM SCH (07:30)
[2017-07-01] MEDS: LOSARTAN 50 MG TAB PO SCH (07:30)
[2017-07-01] MEDS: VANCOMYCIN 1,500 MG in SODIUM CHLORIDE 0.9% 250 ML IVPB SCH ×2 (07:31→17:48)
[2017-07-01 08:00] LABS: Anion Gap 9 mmol/L; Blood Urea Nitrogen 14 mg/dL (9-20); Calcium 9.5 mg/dL (8.4-10.2); Carbon Dioxide 28 mmol/L (22-30); Chloride 104 mmol/L (98-107); Glucose 100 mg/dL (74-99); Potassium 3.8 mmol/L (3.5-5.1); Sodium 141 mmol/L (137-145)
[2017-07-01] MEDS: SODIUM HYPOCHLORITE 0.5% 480 ML BOT MISCELLANE SCH ×2 (09:59→20:00)
[2017-07-01] MEDS: CHOLECALCIFEROL 1,000 UNIT TAB PO SCH (11:18)
--- NOTE | 2017-07-01 13:20 | P.PN ---
Subjective 67-year-old gentleman was admitted secondary to bilateral lower limb ulcerations possible infected ulcerations, infectious disease evaluated the patient patient on broad-spectrum antibiotics Zosyn and vancomycin. 06/28/2017 No overnight events continue present antibiotics and infectious disease and vascular surgery evaluating the patient 06/29/2017 Continue antibiotics no other significant changes, Dr. Mendoza is recommending IV antibiotics for which patient will need a PICC line on Saturday patient's wound cultures are showing MRSA and Provedencia 06/30/2017 No overnight events 07/11/2017 Awaiting antibiotic recommendations. Constitutional: Denied any fatigue denied any fever. Cardio vascular: denied any chest pain, palpitations Gastrointestinal denied any nausea vomiting Pulmonary: Denied any shortness of breath cough Neurologic denied any new focal deficits Objective - Vital Signs Vital signs: Vital Signs Temp 98.4 F 07/01/17 07:00 Pulse 88 07/01/17 07:00 Resp 20 07/01/17 07:00 BP 175/95 07/01/17 07:00 Pulse Ox 94 L 07/01/17 07:00 Intake & Output 06/30/17 07/01/17 07/01/17 18:59 06:59 18:59 Output Total 400 450 Balance -400 -450 Weight 97.976 kg Output: Urine 400 450 Other: # Voids 1 - Exam PHYSICAL EXAMINATION: GENERAL: The patient is alert and oriented x3, not in any acute distress. Well developed, well nourished. HEENT: Pupils are round and equally reacting to light. EOMI. No scleral icterus. No conjunctival pallor. Normocephalic, atraumatic. No pharyngeal erythema. No thyromegaly. CARDIOVASCULAR: S1 and S2 present. No murmurs, rubs, or gallops. PULMONARY: Chest is clear to auscultation, no wheezing or crackles. ABDOMEN: Soft, nontender, nondistended, normoactive bowel sounds. No palpable organomegaly. MUSCULOSKELETAL: No joint swelling or deformity. EXTREMITIES: No cyanosis, clubbing, or pedal edema. 2+ pedal edema to the left with extensive ulcers to the pretibial and ankle areas. Yellow exudate. Patient has a small wound to the right pretibial area with serous drainage. Patient has multiple ulcerations in the left leg deep stage 3-4 NEUROLOGICAL: Gross neurological examination did not reveal any focal deficits. SKIN: No rashes. - Labs CBC & Chem 7: 06/30/17 07:52 07/01/17 07:08 Labs: Abnormal Lab Results - Last 24 Hours (Table) 07/01/17 Range/Units 07:08 Glucose 100 H (74-99) mg/dL Microbiology - Last 24 Hours (Table) 06/25/17 17:34 Blood Culture - Preliminary Blood No Growth after 120 hours Assessment and Plan Plan: -Infected lower bilateral lower limb ulcerations:. Patient is being can you done when questioned Zosyn and infectious disease and restless surgery evaluated the patient Continue with medical any local wound care. -Nicotine abuse: Counseling was provided patient may have COPD is not in acute exacerbation at this point of time -Hyperlipidemia -Hypertension -Peripheral vascular disease. For above-mentioned chronic medical problems patient will be continued on present medications
[2017-07-01] MEDS: SODIUM CHLORIDE 0.9% 1,000 ML IV SCH (17:48)
[2017-07-01] MEDS: ATORVASTATIN 20 MG TAB PO SCH (19:59)
[2017-07-01] MEDS: AMITRIPTYLINE HCL 50 MG TAB PO SCH (19:59)
[2017-07-01] MEDS: MELATONIN 5 MG TABLET PO SCH (20:00)
--- NOTE | 2017-07-01 22:45 | P.PN ---
Subjective Progress Note Date: 07/01/17 Principal diagnosis: Severe peripheral vascular disease This is a 67-year-old male patient well known to ID service as he has been treated for chronic lower extremity wounds in the past with known peripheral vascular disease and previous bypass on the left.. He has had these for many years. Patient states that about the last month as well as became worse and he has had increased pain nausea and chills. He states he has been using bag balm, medihoney at home without any improvement. He has not been on any antibiotics. Patient presented to [facility] emergency center currently afebrile with white count of 10.1, creatinine 0.7. Alkaline phosphatase 138. Urinalysis was negative for urinary tract infection. Urine culture is in process and will culture and Gram stain are pending. Blood cultures status received. Patient was started on Zosyn and vancomycin and admitted to the [facility] floor. Patient has been seen by Dr. Will and he has ordered Dakins and therahoney twice daily. There is no immediate plan for debridement. Patient is a smoker one and half packs per day for 45 years. Patient is also drinking at least a sixpack of beer per day. Patient states that he has a previous back injury 40 years ago and has difficulty with his right leg and has frequent falls at home. He denies any recent injury. He denies any new injury to his left lower leg. 06/27/2017 the patient remains quite miserable. He is having ongoing significant pain to his left leg. The current local wound care has helped some odor but he is still having significant pain. Further vascular evaluation is in process. Having no difficulties with current antibiotic therapy. 06/28/2017 patient has some improvement. Still having severe pain to the left limb likes to have it hanging over the side of the bed. We discussed Dr. Will's notation of possible amputation for which Mr. Matias completely refuses. 07/11/2017 patient has had some improvement in that there is less drainage but continues to have significant pain at times with the limb. Discomfort increases with his activity around his room. However is denying fevers, chills or rigors. He continues to refuse any possibility of amputation. Objective - Vital Signs Vital signs: Vital Signs Temp 98.5 F 07/01/17 15:00 Pulse 92 07/01/17 15:00 Resp 20 07/01/17 15:00 BP 195/99 07/01/17 15:00 Pulse Ox 94 L 07/01/17 15:00 Intake & Output 07/01/17 07/01/17 07/02/17 06:59 18:59 06:59 Intake Total 480 Output Total 450 1300 Balance -450 -820 Weight 97.976 kg Intake: Oral 480 Output: Urine 450 1300 Other: # Voids 1 1 - Exam Gen: This is a 67-year-old male patient. He is sitting up in bed and appears to be comfortable. HEENT: Head is atraumatic, normocephalic. Pupils equal, round. Sclerae is anicteric. NECK: Supple. No JVD. No lymphadenopathy. No thyromegaly. LUNGS: Clear to auscultation. No wheezes or rhonchi. No intercostal retractions. HEART: Regular rate and rhythm. No murmur. ABDOMEN: Soft. Bowel sounds are present. No masses. No tenderness. EXTREMITIES: 2+ pedal edema to the left with extensive ulcers to the pretibial and ankle areas. However the surrounding erythema does appear to be somewhat improved today with antibiotic therapy. Very tender. Continues to have a large amount of yellow exudate.. Patient has a small wound to the right pretibial area with serous drainage. Dorsalis pedis is weak bilaterally. NEUROLOGICAL: Patient is awake, alert and oriented x3. - Labs CBC & Chem 7: 06/30/17 07:52 07/01/17 07:08 Labs: Abnormal Lab Results - Last 24 Hours (Table) 07/01/17 Range/Units 07:08 Glucose 100 H (74-99) mg/dL Microbiology - Last 24 Hours (Table) 06/25/17 17:34 Blood Culture - Final Blood No Growth after 144 hours Laboratory Results WBC 8.8 k/uL (3.8-10.6) 06/30/17 07:52 RBC 4.04 m/uL (4.30-5.90) L 06/30/17 07:52 Hgb 12.7 gm/dL (13.0-17.5) L 06/30/17 07:52 Hct 39.3 % (39.0-53.0) 06/30/17 07:52 MCV 97.4 fL (80.0-100.0) 06/30/17 07:52 MCH 31.4 pg (25.0-35.0) 06/30/17 07:52 MCHC 32.3 g/dL (31.0-37.0) 06/30/17 07:52 RDW 13.8 % (11.5-15.5) 06/30/17 07:52 Plt Count 359 k/uL (150-450) 06/30/17 07:52 Neutrophils % 78 % 06/25/17 17:34 Lymphocytes % 10 % 06/25/17 17:34 Monocytes % 7 % 06/25/17 17:34 Eosinophils % 2 % 06/25/17 17:34 Basophils % 0 % 06/25/17 17:34 Neutrophils # 7.9 k/uL (1.3-7.7) H 06/25/17 17:34 Lymphocytes # 1.1 k/uL (1.0-4.8) 06/25/17 17:34 Monocytes # 0.7 k/uL (0-1.0) 06/25/17 17:34 Eosinophils # 0.2 k/uL (0-0.7) 06/25/17 17:34 Basophils # 0.0 k/uL (0-0.2) 06/25/17 17:34 PT 9.2 sec (9.0-12.0) 06/25/17 17:34 INR 0.9 (<1.2) 06/25/17 17:34 APTT 24.8 sec (22.0-30.0) 06/25/17 17:34 Sodium 141 mmol/L (137-145) 07/01/17 07:08 Potassium 3.8 mmol/L (3.5-5.1) 07/01/17 07:08 Chloride 104 mmol/L (98-107) 07/01/17 07:08 Carbon Dioxide 28 mmol/L (22-30) 07/01/17 07:08 Anion Gap 9 mmol/L 07/01/17 07:08 BUN 14 mg/dL (9-20) 07/01/17 07:08 Creatinine 1.03 mg/dL (0.66-1.25) 07/01/17 07:08 Est GFR (MDRD) Af Amer >60 (>60 ml/min/1.73 sqM) 07/01/17 07:08 Est GFR (MDRD) Non-Af >60 (>60 ml/min/1.73 sqM) 07/01/17 07:08 Glucose 100 mg/dL (74-99) H 07/01/17 07:08 Plasma Lactic Acid Elder 0.7 mmol/L (0.7-2.0) 06/25/17 17:43 Calcium 9.5 mg/dL (8.4-10.2) 07/01/17 07:08 Total Bilirubin 0.4 mg/dL (0.2-1.3) 06/25/17 17:34 AST 29 U/L (17-59) 06/25/17 17:34 ALT 32 U/L (21-72) 06/25/17 17:34 Alkaline Phosphatase 138 U/L (38-126) H 06/25/17 17:34 Total Protein 6.7 g/dL (6.3-8.2) 06/25/17 17:34 Albumin 4.0 g/dL (3.5-5.0) 06/25/17 17:34 Urine Color Yellow 06/25/17 18:50 Urine Appearance Clear (Clear) 06/25/17 18:50 Urine pH 6.5 (5.0-8.0) 06/25/17 18:50 Ur Specific Hardy 1.008 (1.001-1.035) 06/25/17 18:50 Urine Protein Trace (Negative) H 06/25/17 18:50 Urine Glucose (UA) Negative (Negative) 06/25/17 18:50 Urine Ketones Negative (Negative) 06/25/17 18:50 Urine Blood Negative (Negative) 06/25/17 18:50 Urine Nitrite Negative (Negative) 06/25/17 18:50 Urine Bilirubin Negative (Negative) 06/25/17 18:50 Urine Urobilinogen <2.0 mg/dL (<2.0) 06/25/17 18:50 Ur Leukocyte Esterase Negative (Negative) 06/25/17 18:50 Vancomycin Trough 17.4 ug/mL 06/29/17 07:21 jhu Microbiology 06/25/17 17:34 Blood Blood Culture - Final No Growth after 144 hours 06/25/17 17:34 Leg - Left Gram Stain - Final 06/25/17 17:34 Leg - Left Wound Culture - Final Providencia rettgeri Methicillin resist S. aureus 06/25/17 18:50 Urine,Voided Urine Culture - Final Assessment and Plan (1) Leg wound, left Narrative/Plan: 67-year-old male has presented to hospital with increasing pain and discomfort involving his left leg. Local wound care has been initiated and that has helped some drainage and odor but is still having significant pain. Bone scan is negative for underlying osteomyelitis. However the patient appears to have critical bloodflow issues to the limb. He has been seen by vascular surgery. Further workup appears to be in process however they did state that the patient likely would need an amputation for this progressive disease state. At this time await further input from the vascular surgeon as far as overall plan. Will likely need outpatient intravenous antibiotic therapy at his local hospital. Cultures show evidence of MRSA and providencia for which antibiotics of Zosyn and vancomycin are being utilized. Despite antibiotic therapy continues to have ongoing difficulty with the limb. The vancomycin RICK is 2 consequently we will transition vancomycin to daptomycin. Patient will have a PICC line placed for outpatient intravenous antibiotic therapy [facility] He will follow-up in the wound healing Center at this facility after his discharge. He now alleges that the surgeon believes amputation is inevitable but he over has no desire for this approach at this time. Current Visit: Yes Status: Acute Code(s): S81.802A - UNSPECIFIED OPEN WOUND , LEFT LOWER LEG, INITIAL ENCOUNTER SNOMED Code(s): 660905977 (2) Nicotine dependence Current Visit: No Status: Acute Code(s): F17.200 - NICOTINE DEPENDENCE, UNSPECIFIED, UNCOMPLICATED SNOMED Code(s): 94429366 (3) COPD (chronic obstructive pulmonary disease) Current Visit: Yes Status: Acute Code(s): J44.9 - CHRONIC OBSTRUCTIVE PULMONARY DISEASE, UNSPECIFIED SNOMED Code(s): 57760722 (4) MRSA (methicillin resistant Staphylococcus aureus) infection Current Visit: Yes Status: Acute Code(s): A49.02 - METHICILLIN RESIS STAPH INFECTION, UNSP SITE SNOMED Code(s): 633740223
[2017-07-02] MEDS: PIPERACILLIN-TAZOBACTAM 3.375 GM in DEXTROSE/WATER 1 50ML.BAG IVPB SCH ×2 (04:03→11:09)
[2017-07-02] MEDS: HYDROmorphone 4 MG TABLET PO PRN ×3 (04:05→11:09)
[2017-07-02] MEDS: ASPIRIN 325 MG TAB PO SCH (07:40)
[2017-07-02] MEDS: FUROSEMIDE 40 MG TAB PO SCH ×2 (07:45→15:11)
[2017-07-02] MEDS: SODIUM HYPOCHLORITE 0.5% 480 ML BOT MISCELLANE SCH (07:46)
[2017-07-02] MEDS: LOSARTAN 50 MG TAB PO SCH (07:46)
[2017-07-02] MEDS: METOPROLOL TARTRATE 25 MG TAB PO SCH (07:46)
[2017-07-02] MEDS: NICOTINE 21MG/24HR PATCH TRANSDERM SCH (07:46)
[2017-07-02 07:56] VITALS: RESP 18
[2017-07-02] MEDS ORDERED: DAPTOmycin 500 MG in SODIUM CHLORIDE 0.9% 50 ML IV SCH (08:00)
[2017-07-02 08:48] LABS: Anion Gap 10 mmol/L; Blood Urea Nitrogen 13 mg/dL (9-20); Calcium 9.7 mg/dL (8.4-10.2); Carbon Dioxide 29 mmol/L (22-30); Chloride 103 mmol/L (98-107); Glucose 103 mg/dL (74-99); Potassium 4.3 mmol/L (3.5-5.1); Sodium 142 mmol/L (137-145)
[2017-07-02] MEDS: CHOLECALCIFEROL 1,000 UNIT TAB PO SCH (11:10)
[2017-07-02] MEDS ORDERED: LIDOCAINE 2% INJ 20 MG/ML SQ ONE (14:19)
[2017-07-02] MEDS ORDERED: HYDROcodone/APAP 7.5-325MG 1 EACH TAB PO PRN (14:43)
[2017-07-02 15:29] VITALS: BP 137/96; PULSE 92; TEMP 98.3
--- NOTE | 2017-07-02 15:45 | IR ---
PICC LINE PLACEMENT: HISTORY: Infection requiring long-term antibiotic therapy PROCEDURE: Ultrasound and fluoroscopic guidance of PICC line placement. COMPLICATIONS: None ANESTHESIA: 1. 1% Lidocaine locally. FINDINGS/TECHNIQUE: The procedure was explained to the patient. The risks, complications, benefits and alternatives were discussed and any questions were answered. Informed consent was obtained. The patient was placed supine on the fluoroscopic table and prepped and draped in the usual sterile [facility] ion. Utilizing a 21 gauge needle and sonographic and fluoroscopic guidance, access in the vein was achieved and there is placement of a 0.018 guidewire. The vein is patent. A 4-F sheath was placed o tessy the guidewire. The guidewire and dilator were removed and a 4-F. PICC line was placed through th e sheath with the tip at the level of the SVC. The sheath was removed, the catheter was flushed and sutured into position. The patient was stable throughout the procedure and remained stable upon disc harge from the Department of Radiology. The vein puncture was patent under ultrasound. A santoro scale image was obtained to document patency of the vein punctured. All elements of the maximal barrier technique were utilized. FLUOROSCOPY TIME: 0.5 minutes and one image submitted IMPRESSION: Successful PICC line placement under ultrasound and fluoroscopic guidance.
--- NOTE | 2017-07-02 16:37 | P.DS ---
Providers Date of admission: 06/25/17 18:38 Expected date of discharge: 07/02/17 Attending physician: Armani Finnegan Consults: 06/25/17 18:36 Consult Physician Stat Consulting Provider: Vernon Mendoza Consult Reason/Comments: Left Leg Wounds Do you want consulting provider notified?: Yes Consult Physician Stat Consulting Provider: Ricki Will Consult Reason/Comments: Vascular insufficiency; Left leg wounds Do you want consulting provider notified?: Yes Primary care physician: Harsh Frazier Hospital Course: Final Diagnoses: -Infected lower bilateral lower limb ulcerations -Nicotine abuse: Counseling was provided patient may have COPD is not in acute exacerbation at this point of time -Hyperlipidemia -Hypertension -Peripheral vascular disease. Hospital course: This is a 67-year-old gentleman was admitted secondary to bilateral lower limb ulcerations possible infected ulcerations, infectious disease evaluated the patient on broad-spectrum antibiotics Zosyn and vancomycin. Evaluated by vascular surgery. Cultures reporting MRSA and Provendencia PICC line placed by interventional radiology. Cleared by both consults for discharge. Patient will be discharged home in a stable condition with guarded prognosis. Microbiology 06/25/17 17:34 Blood Blood Culture - Final No Growth after 144 hours 06/25/17 17:34 Leg - Left Gram Stain - Final 06/25/17 17:34 Leg - Left Wound Culture - Final Providencia rettgeri Methicillin resist S. aureus 06/25/17 18:50 Urine,Voided Urine Culture - Final Physical exam:GENERAL: The patient is alert and oriented x3, not in any acute distress. Well developed, well nourished. CARDIOVASCULAR: S1 and S2 present. No murmurs, rubs, or gallops. PULMONARY: Chest is clear to auscultation, no wheezing or crackles. ABDOMEN: Soft, nontender, nondistended, normoactive bowel sounds. No palpable organomegaly. EXTREMITIES: Dressings clean dry and intact NEUROLOGICAL: NO focal deficits. The impression and plan of care has been dictated as directed. : I performed a history and examination of this patient, discussed the same with the dictator. I agree with the dictator's note ,documented as a scribe. Any additional findings or plans will be noted. Time taken: Greater than 35 minutes. Patient Condition at Discharge: Stable Plan - Discharge Summary Discharge Rx Participant: No New Discharge Prescriptions: New DAPTOmycin [Cubicin] 500 mg IVPB DAILY #40 vial Ciprofloxacin HCl [Cipro] 500 mg PO Q12HR #60 tablet HYDROcodone/APAP 7.5-325MG [[place] 7.5-325] 1 each PO Q6H PRN #30 tab PRN Reason: Pain Nicotine 21Mg/24Hr Patch [Habitrol] 1 patch TRANSDERM DAILY #30 patch Continue Aspirin 325 mg PO DAILY #30 tab Atorvastatin [Lipitor] 20 mg PO HS #30 tab Furosemide [Lasix] 40 mg PO BID@0900,1600 #60 tab Metoprolol Tartrate [Lopressor] 25 mg PO BID #60 tab Cholecalciferol [Vitamin D3] 1,000 unit PO DAILY Losartan Potassium 100 mg PO DAILY Discharge Medication List Aspirin 325 mg PO DAILY #30 tab 07/31/16 [Rx] Atorvastatin [Lipitor] 20 mg PO HS #30 tab 07/31/16 [Rx] Furosemide [Lasix] 40 mg PO BID@0900,1600 #60 tab 07/31/16 [Rx] Metoprolol Tartrate [Lopressor] 25 mg PO BID #60 tab 07/31/16 [Rx] Cholecalciferol [Vitamin D3] 1,000 unit PO DAILY 06/25/17 [History] Losartan Potassium 100 mg PO DAILY 06/25/17 [History] Ciprofloxacin HCl [Cipro] 500 mg PO Q12HR #60 tablet 07/02/17 [Rx] DAPTOmycin [Cubicin] 500 mg IVPB DAILY #40 vial 07/02/17 [Rx] HYDROcodone/APAP 7.5-325MG [[place] 7.5-325] 1 each PO Q6H PRN #30 tab 07/02/17 [ Rx] Nicotine 21Mg/24Hr Patch [Habitrol] 1 patch TRANSDERM DAILY #30 patch 07/02/17 [ Rx] Follow up Appointment(s)/Referral(s): Freddie House MD [Primary Care Provider] - 07/09/17 10:20 am Vernon Mendoza MD [STAFF PHYSICIAN] - 07/16/17 [facility] [NON-STAFF] - 07/15/17 12:45 pm (With Dr Will) Ambulatory/Diagnostic Orders: Basic Metabolic Panel [LAB.AMB] Location: Determined By Patient Complete Blood Count w/diff [LAB.AMB] Location: Determined By Patient Miscellaneous Lab Order [LAB.AMB] Location: Determined By Patient Patient Instructions/Handouts: Chronic Wound Care (DC) Activity/Diet/Wound Care/Special Instructions: Iv antibiotic infusion at [facility], please go anytime in the mornings for your Iv infusion. [phone] Cardiac, diet. HEART failure booklet given. Wound care at wound care clinic. NO smoking, cessation information provided. No alcohol. Discharge Disposition: HOME SELF-CARE
--- NOTE | 2017-07-02 21:58 | P.PN ---
Subjective Progress Note Date: 07/02/17 Principal diagnosis: Severe peripheral vascular disease This is a 67-year-old male patient well known to ID service as he has been treated for chronic lower extremity wounds in the past with known peripheral vascular disease and previous bypass on the left.. He has had these for many years. Patient states that about the last month as well as became worse and he has had increased pain nausea and chills. He states he has been using bag balm, medihoney at home without any improvement. He has not been on any antibiotics. Patient presented to [facility] emergency center currently afebrile with white count of 10.1, creatinine 0.7. Alkaline phosphatase 138. Urinalysis was negative for urinary tract infection. Urine culture is in process and will culture and Gram stain are pending. Blood cultures status received. Patient was started on Zosyn and vancomycin and admitted to the [facility] floor. Patient has been seen by Dr. Will and he has ordered Dakins and therahoney twice daily. There is no immediate plan for debridement. Patient is a smoker one and half packs per day for 45 years. Patient is also drinking at least a sixpack of beer per day. Patient states that he has a previous back injury 40 years ago and has difficulty with his right leg and has frequent falls at home. He denies any recent injury. He denies any new injury to his left lower leg. 06/27/2017 the patient remains quite miserable. He is having ongoing significant pain to his left leg. The current local wound care has helped some odor but he is still having significant pain. Further vascular evaluation is in process. Having no difficulties with current antibiotic therapy. 06/28/2017 patient has some improvement. Still having severe pain to the left limb likes to have it hanging over the side of the bed. We discussed Dr. Will's notation of possible amputation for which Mr. Matias completely refuses. 07/01/2017 patient has had some improvement in that there is less drainage but continues to have significant pain at times with the limb. Discomfort increases with his activity around his room. However is denying fevers, chills or rigors. He continues to refuse any possibility of amputation. 07/02/2017 patient has further improvement. No new complaints but leg continues to be very painful at rest. Objective - Vital Signs Vital signs: Vital Signs Temp 98.3 F 07/02/17 15:00 Pulse 92 07/02/17 15:00 Resp 18 07/02/17 15:00 BP 137/96 07/02/17 15:00 Pulse Ox 92 L 07/02/17 15:00 Intake & Output 07/02/17 07/02/17 07/03/17 06:59 18:59 06:59 Intake Total 540 240 Output Total 600 Balance 540 -360 Intake: Oral 540 240 Output: Urine 600 Other: # Voids 2 - Exam Gen: This is a 67-year-old male patient. He is sitting up in bed and appears to be comfortable. HEENT: Head is atraumatic, normocephalic. Pupils equal, round. Sclerae is anicteric. NECK: Supple. No JVD. No lymphadenopathy. No thyromegaly. LUNGS: Clear to auscultation. No wheezes or rhonchi. No intercostal retractions. HEART: Regular rate and rhythm. No murmur. ABDOMEN: Soft. Bowel sounds are present. No masses. No tenderness. EXTREMITIES: 2+ pedal edema to the left with extensive ulcers to the pretibial and ankle areas. However the surrounding erythema does appear to be somewhat improved today with antibiotic therapy. Very tender. Continues to have a large amount of yellow exudate.. Patient has a small wound to the right pretibial area with serous drainage. Dorsalis pedis is weak bilaterally. NEUROLOGICAL: Patient is awake, alert and oriented x3. - Labs CBC & Chem 7: 06/30/17 07:52 07/02/17 07:39 Labs: Abnormal Lab Results - Last 24 Hours (Table) 07/02/17 Range/Units 07:39 Glucose 103 H (74-99) mg/dL Microbiology - Last 24 Hours (Table) 06/25/17 17:34 Blood Culture - Final Blood No Growth after 144 hours Laboratory Results WBC 8.8 k/uL (3.8-10.6) 06/30/17 07:52 RBC 4.04 m/uL (4.30-5.90) L 06/30/17 07:52 Hgb 12.7 gm/dL (13.0-17.5) L 06/30/17 07:52 Hct 39.3 % (39.0-53.0) 06/30/17 07:52 MCV 97.4 fL (80.0-100.0) 06/30/17 07:52 MCH 31.4 pg (25.0-35.0) 06/30/17 07:52 MCHC 32.3 g/dL (31.0-37.0) 06/30/17 07:52 RDW 13.8 % (11.5-15.5) 06/30/17 07:52 Plt Count 359 k/uL (150-450) 06/30/17 07:52 Neutrophils % 78 % 06/25/17 17:34 Lymphocytes % 10 % 06/25/17 17:34 Monocytes % 7 % 06/25/17 17:34 Eosinophils % 2 % 06/25/17 17:34 Basophils % 0 % 06/25/17 17:34 Neutrophils # 7.9 k/uL (1.3-7.7) H 06/25/17 17:34 Lymphocytes # 1.1 k/uL (1.0-4.8) 06/25/17 17:34 Monocytes # 0.7 k/uL (0-1.0) 06/25/17 17:34 Eosinophils # 0.2 k/uL (0-0.7) 06/25/17 17:34 Basophils # 0.0 k/uL (0-0.2) 06/25/17 17:34 PT 9.2 sec (9.0-12.0) 06/25/17 17:34 INR 0.9 (<1.2) 06/25/17 17:34 APTT 24.8 sec (22.0-30.0) 06/25/17 17:34 Sodium 142 mmol/L (137-145) 07/02/17 07:39 Potassium 4.3 mmol/L (3.5-5.1) 07/02/17 07:39 Chloride 103 mmol/L (98-107) 07/02/17 07:39 Carbon Dioxide 29 mmol/L (22-30) 07/02/17 07:39 Anion Gap 10 mmol/L 07/02/17 07:39 BUN 13 mg/dL (9-20) 07/02/17 07:39 Creatinine 1.06 mg/dL (0.66-1.25) 07/02/17 07:39 Est GFR (MDRD) Af Amer >60 (>60 ml/min/1.73 sqM) 07/02/17 07:39 Est GFR (MDRD) Non-Af >60 (>60 ml/min/1.73 sqM) 07/02/17 07:39 Glucose 103 mg/dL (74-99) H 07/02/17 07:39 Plasma Lactic Acid Elder 0.7 mmol/L (0.7-2.0) 06/25/17 17:43 Calcium 9.7 mg/dL (8.4-10.2) 07/02/17 07:39 Total Bilirubin 0.4 mg/dL (0.2-1.3) 06/25/17 17:34 AST 29 U/L (17-59) 06/25/17 17:34 ALT 32 U/L (21-72) 06/25/17 17:34 Alkaline Phosphatase 138 U/L (38-126) H 06/25/17 17:34 Total Protein 6.7 g/dL (6.3-8.2) 06/25/17 17:34 Albumin 4.0 g/dL (3.5-5.0) 06/25/17 17:34 Urine Color Yellow 06/25/17 18:50 Urine Appearance Clear (Clear) 06/25/17 18:50 Urine pH 6.5 (5.0-8.0) 06/25/17 18:50 Ur Specific [place] 1.008 (1.001-1.035) 06/25/17 18:50 Urine Protein Trace (Negative) H 06/25/17 18:50 Urine Glucose (UA) Negative (Negative) 06/25/17 18:50 Urine Ketones Negative (Negative) 06/25/17 18:50 Urine Blood Negative (Negative) 06/25/17 18:50 Urine Nitrite Negative (Negative) 06/25/17 18:50 Urine Bilirubin Negative (Negative) 06/25/17 18:50 Urine Urobilinogen <2.0 mg/dL (<2.0) 06/25/17 18:50 Ur Leukocyte Esterase Negative (Negative) 06/25/17 18:50 Vancomycin Trough 17.4 ug/mL 06/29/17 07:21 Microbiology 06/25/17 17:34 Blood Blood Culture - Final No Growth after 144 hours 06/25/17 17:34 Leg - Left Gram Stain - Final 06/25/17 17:34 Leg - Left Wound Culture - Final Providencia rettgeri Methicillin resist S. aureus 06/25/17 18:50 Urine,Voided Urine Culture - Final Assessment and Plan (1) Leg wound, left Narrative/Plan: 67-year-old male has presented to hospital with increasing pain and discomfort involving his left leg. Local wound care has been initiated and that has helped some drainage and odor but is still having significant pain. Bone scan is negative for underlying osteomyelitis. However the patient appears to have critical bloodflow issues to the limb. He has been seen by vascular surgery. Further workup appears to be in process however they did state that the patient likely would need an amputation for this progressive disease state. At this time await further input from the vascular surgeon as far as overall plan. Will likely need outpatient intravenous antibiotic therapy at his local hospital. Cultures show evidence of MRSA and providencia for which antibiotics of Zosyn and vancomycin are being utilized. Despite antibiotic therapy continues to have ongoing difficulty with the limb. The vancomycin RICK is 2 consequently we will transition vancomycin to daptomycin. Patient has PICC line placed for outpatient intravenous antibiotic therapy and his local [facility]. Oral cipro sent to pharmacy. He will follow-up in the wound healing Center at this facility after his discharge. He now acknowledges that the surgeon believes amputation is inevitable but he however has no desire for this approach at this time. Status: Acute Code(s): S81.802A - UNSPECIFIED OPEN WOUND, LEFT LOWER LEG, INITIAL ENCOUNTER SNOMED Code(s): 285723351 (2) Nicotine dependence Status: Acute Code(s): F17.200 - NICOTINE DEPENDENCE, UNSPECIFIED, UNCOMPLICATED SNOMED Code(s): 66332635 (3) COPD (chronic obstructive pulmonary disease) Status: Acute Code(s): J44.9 - CHRONIC OBSTRUCTIVE PULMONARY DISEASE, UNSPECIFIED SNOMED Code(s): 20008000 (4) MRSA (methicillin resistant Staphylococcus aureus) infection Status: Acute Code(s): A49.02 - METHICILLIN RESIS STAPH INFECTION, UNSP SITE SNOMED Code(s): 115911813
== END 2017-07-02 16:08 | disposition home or self-care (01) | DRG 300 ==
LOC: EC 15:29 → 4MS4W 18:38
PROVIDERS: ADMIT Internal Medicine; ATTEND Internal Medicine
PROC: 02HV33Z Insertion of Infusion Device into Superior Vena Cava, Percutaneous Approach (ICD-10-PCS; principal; 2017-07-02 14:30)
DX: I73.9 Peripheral vascular disease, unspecified (principal); L03.116 Cellulitis of left lower limb; L97.329 Non-pressure chronic ulcer of left ankle with unspecified severity; L97.829 Non-pressure chronic ulcer of other part of left lower leg with unspecified severity; I11.0 Hypertensive heart disease with heart failure; I50.9 Heart failure, unspecified; J44.9 Chronic obstructive pulmonary disease, unspecified; B95.62 Methicillin resistant Staphylococcus aureus infection as the cause of diseases classified elsewhere; B96.89 Other specified bacterial agents as the cause of diseases classified elsewhere; E78.5 Hyperlipidemia, unspecified; I25.10 Atherosclerotic heart disease of native coronary artery without angina pectoris; I25.2 Old myocardial infarction; R29.6 Repeated falls; G89.29 Other chronic pain; M54.9 Dorsalgia, unspecified; F17.210 Nicotine dependence, cigarettes, uncomplicated; Z79.82 Long term (current) use of aspirin; Z79.899 Other long term (current) drug therapy; Z71.6 Tobacco abuse counseling
CPT/HCPCS: 36415; 36569; 76937; 77001; 78315; 80048; 80053; 80202; 81003; 83605; 85025; 85027; 85610; 85730; 87040; 87070; 87077; 87086; 87186; 87205; 90686; 90715; 90732; 96365; 96366; 96375; 96376; 99284

== ENCOUNTER → 2017-09-09 | Outpatient (CLI) | payer MEDICARE, OTHER ==
--- NOTE | 2017-09-09 13:22 | CT ---
EXAMINATION TYPE: CT lumbar spine wo con DATE OF EXAM: 09/09/2017 12:23 PM COMPARISON: CT lumbar spine July 28, 2015 HISTORY: Patient complains of chronic low back pain. Lumbago per order. CT DLP: 1004 mGycm Automated exposure control for dose reduction was used. Findings: I will use same counting system as prior study presuming bilateral hypoplastic T12 ribs and not a six th lumbar vertebra. There is persistent levoconvex scoliosis centered at L3 level. There is marked lo ss of normal lumbar lordosis on sagittal images. There is moderate central compression L2 level with sclerosis redemonstrated. There is multilevel vacuum disc phenomenon and disc space narrowing most pr ominent L1-L2, L3-L4, and L4-L5 levels redemonstrated. Posterior spurs are effacing anterior thecal s ac L3-L4 and L4-L5 level on sagittal images similar to prior. There is slight posterior retropulsion of the posterior inferior L2 vertebra into anterior spinal canal similar to prior. There is spur disc complex effacing anterior thecal sac T12-L1 level on sagittal image 35 unchanged from prior. No acut e fracture or dislocation is evident. Axial images at T11-T12 level show persistent mild broad disc bulge but the spinal canal is preserved and bilateral neural foramina are patent on axial image 8. No significant change from prior. Axial images at T12-L1 level show mild facet arthropathy bilaterally. There is moderate broad disc bu lge identified. There is more prominent left-sided disc space narrowing. Posterior and marginal spurr ing is present. There is mild left-sided inferior neural foraminal narrowing. Right-sided neural fora men is patent. No significant change from prior. Axial images at L2-L3 level redemonstrate left paracentral bony extrusion effacing anterolateral thec al sac on axial image 36 along with broad disc bulge causing mild to moderate left-sided neural racquel inal narrowing. Right-sided neural foramen is patent. There is mild to moderate right greater than le ft facet arthropathy. No significant change from prior. Axial images at L3-L4 level show posterior spur disc complex with new vacuum disc and moderate right greater than left facet arthropathy effacing anterior thecal sac and causing moderate to advanced rig ht-sided neural foraminal narrowing. Left-sided neural foramina is fairly well patent. No significant change from prior. Axial images at L4-L5 level show moderate facet degenerative changes bilaterally. There is broad disc bulge with central disc protrusion component effacing anterior thecal sac on axial image 60. There i s severe right and fairly moderate left-sided neural foraminal narrowing at this level identified. Ri ght marginal spur is noted seen best on sagittal image 32. Encroachment on right L4 nerve is likely p resent. No significant change from prior. Axial images at L5-S1 level show mild to moderate facet degenerative changes bilaterally. There is ce ntral disc protrusion but spinal canal is preserved as there is prominence of epidural fat at this le gina. There is moderate left-sided neural foraminal narrowing due to marginal spur disc complex sagitt al image 22. Right-sided neural foramen is patent. No significant change from prior is identified. There is moderate calcified plaque of distal abdominal aorta extending into iliac arterial branches. Central calcifications in both kidneys favor vascular etiology. Some cortical scarring laterally mid pole level right kidney is noted on current study. Visualized portion of bladder wall is perhaps mild ly thickened, correlate for enlarged prostate gland. IMPRESSION: Loss of normal lumbar lordosis redemonstrated. Scoliosis again seen. Persistent moderate compression fracture L2 level causing mass effect on spinal canal. Persistent multilevel degenerative changes as detailed above without significant change from recent CT. Some findings particularly lowe r lumbar levels I feel are more prominent than detailed on prior report.
== END | disposition home or self-care (01) ==
LOC: RADCTMAIN 11:57
PROVIDERS: ATTEND Psychiatry & Neurology Neurology
DX: M99.73 Connective tissue and disc stenosis of intervertebral foramina of lumbar region (principal); M51.27 Other intervertebral disc displacement, lumbosacral region; M46.96 Unspecified inflammatory spondylopathy, lumbar region; M41.9 Scoliosis, unspecified; S32.029A Unspecified fracture of second lumbar vertebra, initial encounter for closed fracture; M40.46 Postural lordosis, lumbar region
CPT/HCPCS: 72131

== ENCOUNTER 2020-04-19 20:19 | Inpatient (IN) | payer MEDICARE, OTHER ==
[2020-04-20] MEDS: IPRATROPIUM-ALBUTEROL 3 ML NEB INHALATION PRN ×3 (02:49→11:20)
[2020-04-20] MEDS: oxyCODONE-APAP 10-325MG 1 EACH TAB PO PRN ×3 (03:54→20:40)
[2020-04-20] MEDS: PIPERACILLIN-TAZOBACTAM 3.375 GM in SODIUM CHLORIDE 0.9% 100 ML IVPB SCH ×2 (03:57→12:34)
[2020-04-20 06:33] LABS: Basophils % (A) 0 %; Eosinophils % (A) 0 %; HCT 35.8 % (39.0-53.0); HGB 11.7 gm/dL (13.0-17.5); Lymphocytes # (A) 0.6 k/uL (1.0-4.8); Lymphocytes % (A) 8 %; MCH 27.3 pg (25.0-35.0); MCHC 32.7 g/dL (31.0-37.0); MCV 83.6 fL (80.0-100.0); Mean Platelet Volume 6.5; Monocytes # (A) 0.2 k/uL (0-1.0); Monocytes % (A) 3 %; Neutrophils # (A) 6.2 k/uL (1.3-7.7); Neutrophils % (A) 88 %; Platelet Count 498 k/uL (150-450); RBC 4.29 m/uL (4.30-5.90); RDW 14.7 % (11.5-15.5); WBC 7.1 k/uL (3.8-10.6)
[2020-04-20] MEDS: FAMOTIDINE 20 MG TAB PO SCH ×2 (08:59→20:49)
[2020-04-20] MEDS: MULTIVITAMINS, THERA 1 EACH TAB PO SCH (08:59)
[2020-04-20] MEDS: ASPIRIN 81 MG PO SCH (08:59)
[2020-04-20] MEDS: HEPARIN SODIUM,PORCINE 5,000 UNIT/ML 1 ML VIAL SQ SCH ×2 (08:59→20:53)
[2020-04-20] MEDS: carvediloL 6.25 MG TAB PO SCH ×2 (09:00→17:23)
[2020-04-20] MEDS: POTASSIUM CHLORIDE ER 20 MEQ TAB.ER PO SCH (09:00)
[2020-04-20] MEDS: FUROSEMIDE 20 MG TAB PO SCH (09:00)
[2020-04-20] MEDS: lisinopriL 20 MG TAB PO SCH (09:00)
[2020-04-20] MEDS: CLOPIDOGREL 75 MG TAB PO SCH (09:00)
[2020-04-20 09:50] LABS: African American GFR (CKD) 119.7 (60.0-200.0); BUN/Creat Ratio 21.67 Ratio (12.00-20.00); Calcium 9.3 mg/dL (8.7-10.3); Non-African American GFR(CKD) 103.3 (60.0-200.0); Potassium 4.9 mmol/L (3.5-5.5)
--- NOTE | 2020-04-20 10:44 | XR ---
EXAMINATION TYPE: XR chest 1V portable DATE OF EXAM: 04/20/2020 CLINICAL HISTORY: pneumonia. TECHNIQUE: Portable frontal view of the chest. COMPARISON: [facility] 04/19/2020 CTA chest and 04/19/2020 chest radiograph FINDINGS: Mildly prominent cardiac silhouette. Normal mediastinal silhouette. There is redemonstrate d right hilar mass/adenopathy, and mass of the right middle lobe. Right basilar airspace opacities. N o pleural effusion. No pneumothorax. Degenerative changes of the shoulders and spine. IMPRESSION: 1. Redemonstrated right hilar mass/adenopathy and right middle lobe mass. 2. Redemonstrated right basilar airspace opacities.
[2020-04-20] MEDS: methylPREDNISolone SOD SUCCI 125 MG/2 ML VIAL IV SCH ×2 (13:05→17:24)
[2020-04-20] MEDS ORDERED: NON FORMULARY DRUG (Phenylephrine Hcl [Sudafed Pe] 10 MG Tablet) PO PRN (13:39)
--- NOTE | 2020-04-20 14:58 | P.CNPUL ---
History of Present Illness Consult date: 04/20/20 Requesting physician: Armani Finnegan Reason for consult: dyspnea, lung mass, abnormal CXR/CT Chief complaint: Dyspnea, cough History of present illness: 69-year-old white male patient, chronic smoker, recently quit 2 weeks ago, with known history of COPD, chronic CHF with unknown EF, history of AL, coronary artery disease with previous stenting, PVD with previous intervention, chronic back pain who presented to [facility] for worsening dyspnea days prior to presentation. Patient was recently hospitalized from 04/11/2020 through 04/13/2020 at [facility] for pneumonia, and he was on 7 day course of oral Levaquin, however his symptoms progressed, he feels more short of breath, he complains of lack of energy, he has a semi-productive congested cough. He was tested for COVID 19 at [facility], and was found to be negative. Patient was started on antibiotics, IV steroids, breathing treatments. Blood cultures 2 were obtained, chest x-ray showed mild patchy infiltrate in the lower lung rushing and more on the right side. CTA chest was completed at [facility] to rule out PE and was negative for PE however it did show bilateral pneumonia, massive mediastinal and right bronchial adenopathy suggestive of tumor, possibly related to lymphoma or primary lung malignancy. There was of lung mass in the anterior right middle lobe suspicious for tumor, there was encasement of the right lower lobe pulmonary artery with narrowing of the vessel. Patient was transferred to the [facility] for further evaluation and treatment for pneumonia and new finding of a lung mass. His blood work here showed a white blood cell, 7.1, hemoglobin is 11.7, sodium is 133, the rest of electrolytes and renal profile were unremarkable, patient ad mitted to losing weight, and feeling weak, in addition he is quite bronchospastic, and his COPD is active. Review of Systems All systems: negative Constitutional: Reports anorexia, Reports weakness, Denies chills, Denies fever Eyes: denies blurred vision, denies pain Ears, nose, mouth and throat: Denies headache, Denies sore throat Cardiovascular: Denies chest pain, Denies shortness of breath Respiratory: Reports cough with sputum, Reports dyspnea, Denies cough Gastrointestinal: Denies abdominal pain, Denies diarrhea, Denies nausea, Denies vomiting Musculoskeletal: Denies myalgias Integumentary: Denies pruritus, Denies rash Neurological: Denies numbness, Denies weakness Psychiatric: Denies anxiety, Denies depression Endocrine: Reports weight change, Denies fatigue Past Medical History Past Medical History: Chest Pain / Angina, Heart Failure, COPD, Hypertension, Myocardial Infarction (AL), Skin Disorder Additional Past Medical History / Comment(s): chronic back pain, AL spring 2015; pt has history of PVD with LLE cellulitis, states he had vascular surgery to improve healing Last Myocardial Infarction Date:: 2015 History of Any Multi-Drug Resistant Organisms: MRSA Date of last positivie culture/infection: 06/25/17 MDRO Source:: LEFT LEG Past Surgical History: Heart Catheterization With Stent, Orthopedic Surgery Additional Past Surgical History / Comment(s): left femur ORIF 40 years ago, left leg bypass; two stents placed in November 2019 Past Anesthesia/Blood Transfusion Reactions: No Reported Reaction Date of Last Stent Placement:: November 2019 Past Psychological History: No Psychological Hx Reported Smoking Status: Former smoker Past Alcohol Use History: Heavy Additional Past Alcohol Use History / Comment(s): Drinks about two alcoholic drinks a day Past Drug Use History: None Reported - Past Family History Father Additional Family Medical History / Comment(s): lung cancer Brother(s) Additional Family Medical History / Comment(s): lung cancer Medications and Allergies Home Medications Medication Instructions Recorded Confirmed Type Aspirin [Adult Low Dose Aspirin EC] 81 mg PO DAILY 11/11/17 04/20/20 History Clopidogrel [Plavix] 75 mg PO DAILY 11/11/17 04/20/20 History Multivitamin [Men's Multi-Vitamin] 1 tab PO DAILY 11/11/17 04/20/20 History Black Elderberry 1000mg 1,000 mg PO TID 04/20/20 04/20/20 History Carvedilol [Coreg] 3.125 mg PO BID 04/20/20 04/20/20 History Fluticasone/Salmeterol [Advair 1 puff INHALATION RT-BID 04/20/20 04/20/20 History 500-50 Diskus] Furosemide [Lasix] 20 mg PO DAILY 04/20/20 04/20/20 History Levofloxacin [Levaquin] 500 mg PO DAILY 04/20/20 04/20/20 History Phenylephrine HCl [Sudafed PE] 10 mg PO Q4H PRN 04/20/20 04/20/20 History Potassium Chloride [Klor-Con 20] 20 meq PO DAILY 04/20/20 04/20/20 History lisinopriL [Zestril] 20 mg PO DAILY 04/20/20 04/20/20 History oxyCODONE-APAP 10-325MG [Percocet 1 tab PO TID 04/20/20 04/20/20 History 10-325 mg] Allergies Allergy/AdvReac Type Severity Reaction Status Date / Time No Known Allergies Allergy Verified 04/20/20 08:13 Physical Exam Vitals: Vital Signs Temp Pulse Pulse Resp BP Pulse Ox 04/20/20 13:20 98.1 F 90 18 155/81 100 04/20/20 11:34 88 04/20/20 11:20 84 04/20/20 09:19 18 04/20/20 07:51 80 04/20/20 07:39 80 04/20/20 06:32 18 04/20/20 05:34 98.3 F 86 16 153/82 94 L 04/20/20 02:50 78 18 04/20/20 00:00 91 18 04/19/20 23:00 98.1 F 91 18 144/93 98 Intake and Output 04/19/20 04/20/20 04/20/20 22:59 06:59 14:59 Output Total 400 Balance -400 Output: Urine 400 Other: Voiding Method Toilet Urinal # Voids 2 # Bowel Movements 0 Weight 83 kg GENERAL EXAM: Alert, pleasant, 69-year-old white male, on 4 L of oxygen with pulse ox of 100% comfortable in no apparent distress. HEAD: Normocephalic/atraumatic. EYES: Normal reaction of pupils, equal size. Conjunctiva pink, sclera white. NOSE: Clear with pink turbinates. THROAT: No erythema or exudates. NECK: No masses, no JVD, no thyroid enlargement, no adenopathy. CHEST: No chest wall deformity. Symmetrical expansion. LUNGS: Equal air entry with diffuse wheezes CVS: Regular rate and rhythm, normal S1 and S2, no gallops, no murmurs, no rubs ABDOMEN: Soft, nontender. No hepatosplenomegaly, normal bowel sounds, no guarding or rigidity. EXTREMITIES: No clubbing, no edema, no cyanosis, 2+ pulses and upper and lower extremities. MUSCULOSKELETAL: Muscle strength and tone normal. SPINE: No scoliosis or deformity SKIN: No rashes CENTRAL NERVOUS SYSTEM: Alert and oriented -3. No focal deficits, tone is normal in all 4 extremities. PSYCHIATRIC: Alert and oriented -3. Appropriate affect. Intact judgment and insight. Results - Laboratory Findings CBC and BMP: 04/20/20 05:19 04/20/20 05:19 Abnormal lab findings: Abnormal Labs 04/20/20 04/20/20 05:19 05:19 RBC 4.29 L Hgb 11.7 L Hct 35.8 L Plt Count 498 H Lymphocytes # 0.6 L Sodium 133 L BUN/Creatinine Ratio 21.67 H Glucose 138 H - Diagnostic Findings Chest x-ray: report reviewed, image reviewed CT scan - chest: report reviewed, image reviewed Assessment and Plan Plan: Assessment: #1. Acute hypoxic respiratory failure related to bilateral pneumonia, likely community acquired, ruled out for COVID 19 at [facility] #2. Right middle lobe pulmonary mass with massive mediastinal and right bronchial adenopathy, new finding, could be related to underlying lymphoma or primary lung malignancy #3. Acute exacerbation of COPD #4. Unintentional 25 pound weight loss since the summer of this year #5. History of COPD #6. Hypertension #7. Chronic congestive heart failure with unknown EF #8. Previous history of myocardial infarction #9. Coronary artery disease with previous stenting #10. History of PVD with previous intervention #11. Daily EtOH use #12. Previous history of pneumonia #13. History of smoking, in remission for last 2 weeks #14. Family history of lung cancer in his father Plan: Continue current antibiotics, continue nebulized bronchodilators, continue IV Solu-Medrol, continue optimizing patient's COPD, and treating his pneumonia, we'll set the patient up for outpatient bronchoscopy with biopsies of the right middle lobe mass. We'll continue to follow I performed a history & physical examination of the patient and discussed their management with my nurse practitioner, Lexii Gilmore. I reviewed the nurse practitioner's note and agree with the documented findings and plan of care. Lung sounds are positive for diffuse wheezes throughout the lung rushing. The findings and the impression was discussed with the patient. I attest to the documentation by the nurse practitioner. Time with Patient: Greater than 30
--- NOTE | 2020-04-20 15:09 | HP ---
HISTORY AND PHYSICAL DATE OF SERVICE: 04/20/2020 CHIEF COMPLAINTS: Shortness of breath and cough and possibly lung mass and pneumonia. HISTORY OF PRESENT ILLNESS: This is a 69-year-old gentleman with a past history of CHF, COPD, hypertension, myocardial infarction, chronic back pain, history of peripheral vascular disease with left lower leg cellulitis being followed Dr. Bellamy in the outpatient setting, not feeling well over the past several days. Patient had increasing cough and shortness of breath. Patient is even unable to ambulate even short distances. Patient went to [facility], patient was suspected to have bilateral pneumonia and as well as right hilar mass. The patient was transferred to [facility] for direct admission and is being closely monitored. There is no history of fever, rigors, chills, headache, loss of consciousness, seizures at this time. PAST MEDICAL HISTORY: History of chest pain, history of CHF, COPD, hypertension, history of myocardial infarction, history of chronic back pain, history of MRSA, history of CAD stent. MEDICATIONS: Prior to admission, home medications are: 1. Percocet. 2. Zestril. 3. Klor-Con. 4. Sudafed. 5. Multivitamin. 6. Levaquin. 7. Lasix. 8. Dulera. 9. Plavix. 10.Coreg. 11.Aspirin. ALLERGIES: None. FAMILY HISTORY: History of lung cancer in the family. SOCIAL HISTORY: Occasional alcohol. Previous history of smoking. REVIEW OF SYSTEMS: ENT: No diminished hearing or diminished vision. CARDIOVASCULAR: No angina or palpitations. RESPIRATORY: As mentioned earlier. GI: No nausea. : No dysuria. NERVOUS SYSTEM: No numbness, weakness. ALLERGY/IMMUNOLOGY: No asthma or hayfever. MUSCULOSKELETAL: As mentioned earlier. HEMATOLOGY: No history of anemia. ENDOCRINE: No history of diabetes or hypothyroidism. CONSTITUTIONAL: As mentioned earlier. DERMATOLOGY: Negative. RHEUMATOLOGY: Negative. PSYCHIATRY: As mentioned earlier. PHYSICAL EXAM: Patient is alert and oriented x3. Pulse is 90, blood pressure 150/81, respiration 18, temperature 98.1, pulse ox 100% on 4 L. HEENT: Conjunctivae normal. NECK: No jugular venous distension. CARDIOVASCULAR SYSTEM: S1, S2, muffled. RESPIRATION: Breath sounds diminished at the bases, a few scattered rhonchi, no crackles. ABDOMEN: Soft, nontender. No mass palpable. LEGS: No edema, no swelling. NERVOUS SYSTEM: Higher functions as mentioned earlier. Moves all 4 limbs. No focal motor or sensory deficits. LYMPHATICS: No lymph node enlargement of the neck or axilla. SKIN: No ulcers, rashes, bleeding. JOINTS: No active deformity, arthropathy. LABS: WBC 7.2, hemoglobin 11.7, sodium 133. ASSESSMENT: 1. Chronic obstructive pulmonary disease acute exacerbation with possible acute bibasilar pneumonia, possibly gram-negative. 2. Rule out right hilar mass and lung cancer. 3. Anemia, normocytic anemia of chronic disease. 4. Increased platelets. 5. Hyponatremia. 6. Elevated random blood glucose. 7. History of CHF, ejection fraction unknown. 8. History of COPD. 9. Hypertension. 10.History of myocardial infarction. 11.History of chronic low back pain. 12.History of peripheral vascular disease in lower leg and cellulitis. 13.History of MRSA. 14.History of CAD, stent. RECOMMENDATION: In this 69-year-old gentleman who presented with multiple complex medical issues, will monitor the patient closely, continue with the current management and will initiate broad-spectrum IV antibiotics, bronchodilators, IV steroids. I would also recommend consult Dr. Paul and Dr. Ignacio for possible bronchoscopy. Guarded prognosis because of multiple complex medical issues. Further recommendations to follow. A copy of this will be forwarded to Dr. Bellamy who is the primary physician. Symptomatic treatment also will be provided. MMODL / IJN: [id number] /
[2020-04-20] MEDS: IPRATROPIUM-ALBUTEROL 3 ML NEB INHALATION SCH ×2 (15:18→19:53)
[2020-04-20] MEDS: ALPRAZolam 0.25 MG TAB PO PRN (16:17)
[2020-04-20] MEDS: AZITHROMYCIN 500 MG in SODIUM CHLORIDE 0.9% 250 ML IVPB SCH (16:17)
[2020-04-20 17:12] LABS: Glucose,Whole Blood 177 mg/dL (75-99)
[2020-04-20] MEDS: INSULIN ASPART (NovoLOG) 100 UNIT/ML VIAL SQ SCH ×2 (17:23→20:52)
[2020-04-20] MEDS: HYDROmorphone 0.5 MG/0.5 ML SYRINGE IVP PRN (17:45)
[2020-04-20] MEDS: FORMOTEROL FUMARATE 20 MCG/2 ML NEBU INHALATION SCH (19:53)
[2020-04-20] MEDS: BUDESONIDE 1 MG/2 ML NEBU INHALATION SCH (19:53)
[2020-04-20 20:57] LABS: Glucose,Whole Blood 195 mg/dL (75-99)
--- NOTE | 2020-04-20 21:44 | P.CONS ---
History of Present Illness - Reason for Consult Consult date: 04/20/20 - History of Present Illness The patient is a 69-year-old white male with multiple medical problems. The patient stated that he developed this condition with cough productive of whitish to yellowish phlegm about 2 weeks ago. He was actually hospitalized at [facility] for 2 days from 04/11-04/13 and treated with antibiotics. He did improve and was discharged but had fairly rapid recurrence of similar problems. These continued to progress despite oral antibiotics as an outpatient. He therefore came back to the hospital. CTA of the chest to rule out PE was negative for the same. However it showed bilateral pneumonia, more prominent in the right lower lobe, as well as evidence of a central right lung mass, and massive mediastinal and hilar adenopathy. The patient was therefore transferred here for further evaluation and recommendations. He denies any prior history of malignancy. However he did report long-standing history of smoking. He he could just about 2 weeks ago. Review of Systems Constitutional: Reports chronic pain (Chronic back pain), Reports fatigue Eyes: denies blurred vision, denies pain Ears: deny: decreased hearing, ear discharge, earache, tinnitus Ears, nose, mouth and throat: Denies headache, Denies sore throat Cardiovascular: Reports shortness of breath Respiratory: Reports cough with sputum, Reports dyspnea Gastrointestinal: Denies abdominal pain, Denies diarrhea, Denies nausea, Denies vomiting Genitourinary: Reports as per HPI Musculoskeletal: Reports low back pain Musculoskeletal: left: knee pain (Uses cane) Integumentary: Denies pruritus, Denies rash Neurological: Reports weakness, Denies numbness Psychiatric: Reports anxiety Endocrine: Reports fatigue Hematologic/Lymphatic: Reports as per HPI Past Medical History Past Medical History: Chest Pain / Angina, Heart Failure, COPD, Hypertension, Myocardial Infarction (CA), Skin Disorder Additional Past Medical History / Comment(s): chronic back pain, CA spring 2015; pt has history of PVD with LLE cellulitis, states he had vascular surgery to improve healing Last Myocardial Infarction Date:: 2015 History of Any Multi-Drug Resistant Organisms: MRSA Year Discovered:: 06/25/17 MDRO Source:: LEFT LEG Past Surgical History: Heart Catheterization With Stent, Orthopedic Surgery Additional Past Surgical History / Comment(s): left femur ORIF 40 years ago, left leg bypass; two stents placed in November 2019 Past Anesthesia/Blood Transfusion Reactions: No Reported Reaction Date of Last Stent Placement:: November 2019 Past Psychological History: No Psychological Hx Reported Smoking Status: Former smoker Past Alcohol Use History: Heavy Additional Past Alcohol Use History / Comment(s): Drinks about two alcoholic drinks a day Past Drug Use History: None Reported - Past Family History Father Additional Family Medical History / Comment(s): lung cancer Brother(s) Additional Family Medical History / Comment(s): lung cancer Medications and Allergies Home Medications Medication Instructions Recorded Confirmed Type Aspirin [Adult Low Dose Aspirin EC] 81 mg PO DAILY 11/11/17 04/20/20 History Clopidogrel [Plavix] 75 mg PO DAILY 11/11/17 04/20/20 History Multivitamin [Men's Multi-Vitamin] 1 tab PO DAILY 11/11/17 04/20/20 History Black Elderberry 1000mg 1,000 mg PO TID 04/20/20 04/20/20 History Carvedilol [Coreg] 3.125 mg PO BID 04/20/20 04/20/20 History Fluticasone/Salmeterol [Advair 1 puff INHALATION RT-BID 04/20/20 04/20/20 History 500-50 Diskus] Furosemide [Lasix] 20 mg PO DAILY 04/20/20 04/20/20 History Levofloxacin [Levaquin] 500 mg PO DAILY 04/20/20 04/20/20 History Phenylephrine HCl [Sudafed PE] 10 mg PO Q4H PRN 04/20/20 04/20/20 History Potassium Chloride [Klor-Con 20] 20 meq PO DAILY 04/20/20 04/20/20 History lisinopriL [Zestril] 20 mg PO DAILY 04/20/20 04/20/20 History oxyCODONE-APAP 10-325MG [Percocet 1 tab PO TID 04/20/20 04/20/20 History 10-325 mg] Allergies Allergy/AdvReac Type Severity Reaction Status Date / Time No Known Allergies Allergy Verified 04/20/20 08:13 Physical Exam Vitals: Vital Signs Temp Pulse Pulse Resp BP Pulse Ox 04/20/20 21:00 98.4 F 98 20 125/70 95 04/20/20 20:23 92 04/20/20 20:10 92 11/25/20 20:09 92 04/20/20 19:53 88 04/20/20 15:38 92 04/20/20 15:18 92 04/20/20 13:20 98.1 F 90 18 155/81 100 04/20/20 11:34 88 04/20/20 11:20 84 04/20/20 09:19 18 04/20/20 07:51 80 04/20/20 07:39 80 04/20/20 06:32 18 04/20/20 05:34 98.3 F 86 16 153/82 94 L 04/20/20 02:50 78 18 04/20/20 00:00 91 18 04/19/20 23:00 98.1 F 91 18 144/93 98 Intake and Output 04/20/20 04/20/20 04/20/20 06:59 14:59 22:59 Output Total 400 800 Balance -400 -800 Output: Urine 400 800 Other: Voiding Method Toilet Urinal # Voids 2 # Bowel Movements 0 Weight 83 kg - Constitutional General appearance: no acute distress - EENT Eyes: EOMI, PERRLA ENT: hearing grossly normal, normal oropharynx - Neck Neck: no lymphadenopathy Thyroid: bilateral: normal size - Respiratory Respiratory: right: diminished - Cardiovascular Rhythm: regular Heart sounds: normal: S1, S2 - Gastrointestinal General gastrointestinal: normal bowel sounds, soft - Integumentary Integumentary: normal - Neurologic Neurologic: CNII-XII intact - Musculoskeletal Musculoskeletal: generalized weakness, strength equal bilaterally - Psychiatric Psychiatric: A&O x's 3, appropriate affect Results CBC & Chem 7: 04/20/20 05:19 04/20/20 05:19 Labs: Abnormal Lab Results - Last 24 Hours (Table) 04/20/20 04/20/20 04/20/20 Range/Units 05:19 05:19 05:19 RBC 4.29 L (4.30-5.90) m/uL Hgb 11.7 L (13.0-17.5) gm/dL Hct 35.8 L (39.0-53.0) % Plt Count 498 H (150-450) k/uL Lymphocytes # 0.6 L (1.0-4.8) k/uL ESR 87 H (0-15) mm/hr Sodium 133 L (135-145) mmol/L BUN/Creatinine Ratio 21.67 H (12.00-20.00) Ratio Glucose 138 H (70-110) mg/dL POC Glucose (mg/dL) (75-99) mg/dL C-Reactive Protein (0.0-0.8) mg/dL 04/20/20 04/20/20 04/20/20 Range/Units 05:19 17:06 20:43 RBC (4.30-5.90) m/uL Hgb (13.0-17.5) gm/dL Hct (39.0-53.0) % Plt Count (150-450) k/uL Lymphocytes # (1.0-4.8) k/uL ESR (0-15) mm/hr Sodium (135-145) mmol/L BUN/Creatinine Ratio (12.00-20.00) Ratio Glucose (70-110) mg/dL POC Glucose (mg/dL) 177 H 195 H (75-99) mg/dL C-Reactive Protein 11.9 H (0.0-0.8) mg/dL Chest x-ray: report reviewed CT scan - chest: report reviewed Assessment and Plan (1) Mass of right lung Narrative/Plan: The patient is presenting with a central right lung mass, as well as massive mediastinal adenopathy. Local picture is highly suspicious for malignancy with involvement of the mediastinal lymph nodes. Even the patient's history of smoking and the clinical picture, lung primary with mediastinal involvement, or conversely Center lung malignancy with parenchymal metastasis, is the main differential diagnosis. However other primary such as lymphoma are not ruled out. - The clinical picture and implications were discussed in detail with him. He was advised that malignancy is highly suspected. The next step would be to try to obtain a tissue diagnosis. She has been seen by pulmonary medicine and bronchoscopy is being considered when he is more stable from the especially standpoint. We'll await the same. - Check MRI of the brain for further staging, as lung primary remains the main differential - I will also check CT of the abdomen and pelvis. If the patient has obvious metastatic lesions, then that would prove stage IV disease and would also provide an alternative target for biopsy, if needed Current Visit: Yes Status: Acute Code(s): R91.8 - OTHER NONSPECIFIC ABNORMAL FINDING OF LUNG FIELD SNOMED Code(s): 550231692 (2) Pneumonia Narrative/Plan: This is persistent likely due to postobstructive phenomena . Patient is improved with steroids and antibiotics. Continue management per pulmonary medicine and admitting service Current Visit: Yes Status: Acute Code(s): J18.9 - PNEUMONIA, UNSPECIFIED ORGANISM SNOMED Code(s): 972992934 Plan: Defer to the admitting service and other consultants for management of his multiple other medical problems
[2020-04-21] MEDS: methylPREDNISolone SOD SUCCI 125 MG/2 ML VIAL IV SCH ×5 (00:36→23:05)
[2020-04-21] MEDS: HYDROmorphone 0.5 MG/0.5 ML SYRINGE IVP PRN ×3 (00:37→19:36)
[2020-04-21] MEDS: TEMAZEPAM 15 MG CAP PO PRN (01:51)
[2020-04-21] MEDS: oxyCODONE-APAP 10-325MG 1 EACH TAB PO PRN ×3 (06:35→23:06)
[2020-04-21 07:13] LABS: Glucose,Whole Blood 155 mg/dL (75-99)
[2020-04-21 07:24] LABS: Basophils % (A) 0 %; Eosinophils % (A) 0 %; HCT 35.7 % (39.0-53.0); HGB 11.5 gm/dL (13.0-17.5); Hypochromasia Slight; Lymphocytes # (A) 0.8 k/uL (1.0-4.8); Lymphocytes % (A) 6 %; MCH 27.1 pg (25.0-35.0); MCHC 32.1 g/dL (31.0-37.0); MCV 84.5 fL (80.0-100.0); Mean Platelet Volume 6.6; Monocytes # (A) 0.3 k/uL (0-1.0); Monocytes % (A) 3 %; Neutrophils # (A) 12.3 k/uL (1.3-7.7); Neutrophils % (A) 91 %; Platelet Count 544 k/uL (150-450); RBC 4.23 m/uL (4.30-5.90); RDW 14.9 % (11.5-15.5); WBC 13.5 k/uL (3.8-10.6)
[2020-04-21] MEDS: FORMOTEROL FUMARATE 20 MCG/2 ML NEBU INHALATION SCH ×2 (07:42→19:05)
[2020-04-21] MEDS: IPRATROPIUM-ALBUTEROL 3 ML NEB INHALATION SCH ×4 (07:42→19:05)
[2020-04-21] MEDS: BUDESONIDE 1 MG/2 ML NEBU INHALATION SCH ×2 (07:42→19:06)
[2020-04-21] MEDS: IOPAMIDOL CONTRAST (ORAL USE) VIAL PO PRN ×2 (08:42→09:38)
[2020-04-21] MEDS: FUROSEMIDE 20 MG TAB PO SCH ×2 (08:45→10:58)
[2020-04-21] MEDS: POTASSIUM CHLORIDE ER 20 MEQ TAB.ER PO SCH (08:48)
[2020-04-21] MEDS: lisinopriL 20 MG TAB PO SCH (08:48)
[2020-04-21] MEDS: ASPIRIN 81 MG PO SCH (08:48)
[2020-04-21] MEDS: HEPARIN SODIUM,PORCINE 5,000 UNIT/ML 1 ML VIAL SQ SCH ×2 (08:48→20:04)
[2020-04-21] MEDS: FAMOTIDINE 20 MG TAB PO SCH ×2 (08:48→19:46)
[2020-04-21] MEDS: CLOPIDOGREL 75 MG TAB PO SCH (08:48)
[2020-04-21] MEDS: MULTIVITAMINS, THERA 1 EACH TAB PO SCH (08:48)
[2020-04-21] MEDS: ALPRAZolam 0.25 MG TAB PO PRN (08:48)
[2020-04-21] MEDS: INSULIN ASPART (NovoLOG) 100 UNIT/ML VIAL SQ SCH ×4 (08:48→20:04)
[2020-04-21] MEDS: carvediloL 6.25 MG TAB PO SCH ×2 (08:48→16:42)
[2020-04-21 11:11] LABS: Glucose,Whole Blood 151 mg/dL (75-99)
[2020-04-21 12:01] LABS: African American GFR (CKD) 119.7 (60.0-200.0); Albumin 3.9 g/dL (3.80-4.90); Albumin/Globulin Ratio 1.86 (1.60-3.17); Anion Gap 7.4 mmol/L (4.00-12.00); BUN/Creat Ratio 28.33 Ratio (12.00-20.00); Calcium 9.4 mg/dL (8.7-10.3); Carbon Dioxide 27.6 mmol/L (21.6-31.8); Globulin 2.1 g/dL (1.6-3.3); Magnesium 1.9 mg/dL (1.5-2.4); Non-African American GFR(CKD) 103.3 (60.0-200.0); Potassium 4.6 mmol/L (3.5-5.5); Total Bilirubin 0.1 mg/dL (0.3-1.2)
--- NOTE | 2020-04-21 13:31 | CT ---
EXAMINATION TYPE: CT abdomen pelvis w con DATE OF EXAM: 04/21/2020 COMPARISON: Outside CTA chest 2 days ago. HISTORY: Lung CA staging CT DLP: 949.7 mGycm, Automated Exposure Control for Dose Reduction was Utilized. CONTRAST: CT scan of the abdomen and pelvis is performed with oral and with IV Contrast, patient injected with 100 mL of Isovue 300. FINDINGS: LUNG BASES: Partial visualization of anterior right middle lobe nodule axial image 1. New postobstruc tive consolidation/atelectasis posterior right lung base. Calcification at level of mitral and aortic valve stable mild cardiomegaly. LIVER/GB: Contracted gallbladder. PANCREAS: No significant abnormality is seen. SPLEEN: No significant abnormality is seen. ADRENALS: No adrenal masses. KIDNEYS: Symmetric cortical medullary uptake and excretion without hydronephrosis seen bilaterally. I ncidental subcentimeter thin-walled cyst anterior right kidney upper pole level. 7 image 29 BOWEL: Oral contrast does not reach level of the terminal ileum making evaluation difficult of bowel suboptimal. Slightly prominent contrast filled duodenal sweep No suspicious small or large bowel dila tation. Prominence of fecal material in these right colon including cecum which is wandering into the anterior mid to lower abdomen. PROSTATE/SEMINAL VESICLES: Mildly enlarged prostate gland consistent with BPH bulging of bladder base . LYMPH NODES: No greater than 1cm abdominal or pelvic lymph nodes are appreciated. OSSEOUS STRUCTURES: Partial visualization of fixating hardware left proximal femur. Marked underlying scoliosis with loss of normal lumbar lordosis. Old malunion fracture of the L2 vertebra with posteri or retropulsion into the spinal canal sagittal image 59 along the left aspect. Moderate multilevel di sc space narrowing and vacuum disc phenomenon. No focal suspicious osseous lytic or sclerotic lesions . OTHER: Surgical clips bilateral groin region. [id number] calcified plaque of the abdominal aort a extends into the iliac branch vessels IMPRESSION: No suspicious mass or adenopathy to suggest metastatic disease in the abdomen or pelvis.
--- NOTE | 2020-04-21 13:55 | P.PN ---
Subjective Progress Note Date: 04/21/20 Principal diagnosis: Dyspnea, lung mass This is a very pleasant 69-year-old white male patient, chronic smoker, recently quit 2 weeks ago, with known history of COPD, chronic CHF with unknown EF, history of PR, coronary artery disease with previous stenting, PVD with previous intervention, chronic back pain who presented to [facility] for worsening dyspnea days prior to presentation. Patient was recently hospitalized from 04/11/2020 through 04/13/2020 at [facility] for pneumonia, and he was on 7 day course of oral Levaquin, however his symptoms progressed, he feels more short of breath, he complains of lack of energy, he has a semi-productive congested cough. He was tested for COVID 19 at [facility], and was found to be negative. Patient was started on antibiotics, IV steroids, breathing treatments. Blood cultures 2 were obtained, chest x-ray showed mild patchy infiltrate in the lower lung rushing and more on the right side. CTA chest was completed at [place] to rule out PE and was negative for PE however it did show bilateral pneumonia, massive mediastinal and right bronchial adenopathy suggestive of tumor, possibly related to lymphoma or primary lung malignancy. There was of lung mass in the anterior right middle lobe suspicious for tumor, there was encasement of the right lower lobe pulmonary artery with narrowing of the vessel. Patient was transferred to the [facility] for further evaluation and treatment for pneumonia and new finding of a lung mass. His blood work here showed a white blood cell, 7.1, hemoglobin is 11.7, sodium is 133, the rest of electrolytes and renal profile were unremarkable, patient admitted to losing weight, and feeling weak, in addition he is quite bronchospastic, and his COPD is active. The patient is seen today 04/21/2020 in follow-up on the regular medical floor. He is currently sitting up at the bedside. Awake and alert in no acute distress. No worsening shortness of breath, cough or congestion. He is breathing easier today compared to yesterday. Less bronchospastic and wheezy. He is maintaining O2 saturation in the mid 90s on room air. He's afebrile. White count 13.5. Hemoglobin 11.5. Sodium 134. Potassium 4.6. Creatinine 0.6. He remains on bronchodilators, antibiotics in the form of ceftriaxone and azithromycin, IV Solu-Medrol. Plan is for bronchoscopy with biopsies of the right lung mass and mediastinal lymph nodes tomorrow. The patient is aware of the plan and agreeable. Objective - Vital Signs Vital signs: Vital Signs Temp 97.8 F 04/21/20 11:05 Pulse 86 04/21/20 11:52 Resp 16 04/21/20 11:05 BP 167/82 04/21/20 11:05 Pulse Ox 96 04/21/20 11:05 Intake & Output 04/20/20 04/21/20 04/21/20 18:59 06:59 18:59 Intake Total 300 Output Total 800 400 Balance -800 -100 Weight 83 kg Intake: Oral 300 Output: Urine 800 400 Other: Voiding Method Toilet Toilet Urinal Urinal # Voids 0 # Bowel Movements 0 - Exam GENERAL EXAM: Alert, pleasant, 69-year-old male patient, on room air with pulse ox of 96% comfortable in no apparent distress. HEAD: Normocephalic/atraumatic. EYES: Normal reaction of pupils, equal size. Conjunctiva pink, sclera white. NOSE: Clear with pink turbinates. THROAT: No erythema or exudates. NECK: No masses, no JVD, no thyroid enlargement, no adenopathy. CHEST: No chest wall deformity. Symmetrical expansion. LUNGS: Equal air entry with few scattered rhonchi of the right lung CVS: Regular rate and rhythm, normal S1 and S2, no gallops, no murmurs, no rubs ABDOMEN: Soft, nontender. No hepatosplenomegaly, normal bowel sounds, no guarding or rigidity. EXTREMITIES: No clubbing, no edema, no cyanosis, 2+ pulses and upper and lower extremities. MUSCULOSKELETAL: Muscle strength and tone normal. SPINE: No scoliosis or deformity SKIN: No rashes CENTRAL NERVOUS SYSTEM: Alert and oriented -3. No focal deficits, tone is normal in all 4 extremities. PSYCHIATRIC: Alert and oriented -3. Appropriate affect. Intact judgment and insight. - Labs CBC & Chem 7: 04/21/20 06:38 04/21/20 06:38 Labs: Abnormal Lab Results - Last 24 Hours (Table) 04/20/20 04/20/20 04/20/20 Range/Units 05:19 05:19 17:06 WBC (3.8-10.6) k/uL RBC (4.30-5.90) m/uL Hgb (13.0-17.5) gm/dL Hct (39.0-53.0) % Plt Count (150-450) k/uL Neutrophils # (1.3-7.7) k/uL Lymphocytes # (1.0-4.8) k/uL ESR 87 H (0-15) mm/hr Sodium (135-145) mmol/L BUN/Creatinine Ratio (12.00-20.00) Ratio Glucose (70-110) mg/dL POC Glucose (mg/dL) 177 H (75-99) mg/dL Total Bilirubin (0.3-1.2) mg/dL C-Reactive Protein 11.9 H (0.0-0.8) mg/dL Total Protein (6.2-8.2) g/dL 04/20/20 04/21/20 04/21/20 Range/Units 20:43 06:38 06:38 WBC 13.5 H (3.8-10.6) k/uL RBC 4.23 L (4.30-5.90) m/uL Hgb 11.5 L (13.0-17.5) gm/dL Hct 35.7 L (39.0-53.0) % Plt Count 544 H (150-450) k/uL Neutrophils # 12.3 H (1.3-7.7) k/uL Lymphocytes # 0.8 L (1.0-4.8) k/uL ESR (0-15) mm/hr Sodium 134 L (135-145) mmol/L BUN/Creatinine Ratio 28.33 H (12.00-20.00) Ratio Glucose 154 H (70-110) mg/dL POC Glucose (mg/dL) 195 H (75-99) mg/dL Total Bilirubin 0.1 L (0.3-1.2) mg/dL C-Reactive Protein (0.0-0.8) mg/dL Total Protein 6.0 L (6.2-8.2) g/dL 04/21/20 04/21/20 Range/Units 07:12 11:09 WBC (3.8-10.6) k/uL RBC (4.30-5.90) m/uL Hgb (13.0-17.5) gm/dL Hct (39.0-53.0) % Plt Count (150-450) k/uL Neutrophils # (1.3-7.7) k/uL Lymphocytes # (1.0-4.8) k/uL ESR (0-15) mm/hr Sodium (135-145) mmol/L BUN/Creatinine Ratio (12.00-20.00) Ratio Glucose (70-110) mg/dL POC Glucose (mg/dL) 155 H 151 H (75-99) mg/dL Total Bilirubin (0.3-1.2) mg/dL C-Reactive Protein (0.0-0.8) mg/dL Total Protein (6.2-8.2) g/dL Assessment and Plan Assessment: #1. Acute hypoxic respiratory failure related to bilateral pneumonia, likely community acquired, ruled out for COVID 19 at [facility] #2. Right middle lobe pulmonary mass with massive mediastinal and right bronchial adenopathy, new finding, could be related to underlying lymphoma or primary lung malignancy #3. Acute exacerbation of COPD #4. Unintentional 25 pound weight loss since the summer of this year #5. History of COPD #6. Hypertension #7. Chronic congestive heart failure with unknown EF #8. Previous history of myocardial infarction #9. Coronary artery disease with previous stenting #10. History of PVD with previous intervention #11. Daily EtOH use #12. Previous history of pneumonia #13. History of smoking, in remission for last 2 weeks #14. Family history of lung cancer in his father Plan: The patient was seen and evaluated by Dr. Paul He is improved from the pulmonary standpoint We will plan for bronchoscopy with biopsies in a.m. Patient is agreeable to the plan Continue current medications We'll continue to follow I, the cosigning physician, performed a history & physical examination of the patient. Lungs sounds few scattered rhonchi of the right lung. Maintaining good O2 saturations in the 90s on room air. I discussed the assessment and plan of care with my nurse practitioner, Rosa Perez. I attest to the above note as dictated by her.
[2020-04-21] MEDS: AZITHROMYCIN 500 MG in SODIUM CHLORIDE 0.9% 250 ML IVPB SCH (15:06)
[2020-04-21 16:54] LABS: Glucose,Whole Blood 214 mg/dL (75-99)
[2020-04-21 19:51] LABS: Glucose,Whole Blood 136 mg/dL (75-99)
[2020-04-21 21:53] LABS: Glucose,Whole Blood 175 mg/dL (75-99)
[2020-04-22] MEDS: TEMAZEPAM 15 MG CAP PO PRN (00:09)
[2020-04-22] MEDS: HYDROmorphone 0.5 MG/0.5 ML SYRINGE IVP PRN ×3 (03:42→23:46)
--- NOTE | 2020-04-22 03:51 | PN ---
PROGRESS NOTE DATE OF SERVICE: 04/21/2020 This 69-year-old gentleman who was admitted with COPD acute exacerbation, possible acute bibasilar pneumonia, possibly gram-negative, was suspected to have lung mass. The patient had abdomen and pelvis CAT scan which showed no suspicious lesions. The patient was seen by Dr. Ignacio recommended continued followup. Otherwise, Dr. Paul has seen the patient and recommended a bronchoscopy with biopsy in the morning. PAST MEDICAL HISTORY: Reviewed. REVIEW OF SYSTEMS: CARDIOVASCULAR SYSTEM: No angina. RESPIRATORY SYSTEM: As mentioned earlier. GI: As mentioned earlier. : No dysuria. NERVOUS SYSTEM: No numbness or weakness. CURRENT MEDICATIONS: Current medications are reviewed and include DuoNeb, Xanax, aspirin, Zithromax, Pulmicort, Coreg, Rocephin, Plavix, Pepcid, Zestril, Solu-Medrol. Doses are reviewed. PHYSICAL EXAMINATION: The patient is alert and oriented x3. Pulse is 91, blood pressure 157/79, respirations 16, temperature 97.8, pulse ox 95% on room air. HEENT: Conjunctivae normal. NECK: No jugular venous distention. CARDIOVASCULAR: S1, S2 muffled. RESPIRATORY: Breath sounds diminished at the bases. Bilateral scattered rhonchi and crackles. ABDOMEN: Soft, nontender. LEGS: No edema. No swelling. NERVOUS SYSTEM: No focal deficits. LABS: WBC 13.5, hemoglobin 11.5. Accu-Cheks are noted. ASSESSMENT: 1. Chronic obstructive pulmonary disease acute exacerbation with possible acute bibasilar pneumonia possibly gram-negative. 2. Right hilar mass and lung cancer possibly. 3. Anemia, normocytic anemia of chronic disease. 4. Increased platelets. 5. Hyponatremia. 6. Increased random blood sugar. 7. History of congestive heart failure, ejection fraction unknown. 8. History of chronic obstructive pulmonary disease. 9. Hypertension. 10.History of myocardial infarction. 11.History of chronic low back pain. 12.History of peripheral vascular disease with lower leg cellulitis. 13.History of MRSA. 14.History of coronary artery disease, stent. RECOMMENDATIONS AND DISCUSSION: Recommend to continue current medications, continue symptomatic treatment. Otherwise, continue with bronchodilators. Continue with steroids and antibiotics. Respiratory cortes, patient is slightly better. However, we will follow with Dr. Paul regarding bronchoscopy tomorrow. Further recommendations to follow. MMODL / IJN: [id number] /
[2020-04-22] MEDS: methylPREDNISolone SOD SUCCI 125 MG/2 ML VIAL IV SCH ×4 (05:45→23:10)
[2020-04-22 07:29] LABS: Glucose,Whole Blood 150 mg/dL (75-99)
[2020-04-22] MEDS: HEPARIN SODIUM,PORCINE 5,000 UNIT/ML 1 ML VIAL SQ SCH ×2 (08:30→20:18)
[2020-04-22] MEDS: FAMOTIDINE 20 MG TAB PO SCH ×2 (08:30→20:18)
[2020-04-22] MEDS: FUROSEMIDE 20 MG TAB PO SCH (08:30)
[2020-04-22] MEDS: MULTIVITAMINS, THERA 1 EACH TAB PO SCH (08:31)
[2020-04-22] MEDS: CLOPIDOGREL 75 MG TAB PO SCH (08:31)
[2020-04-22] MEDS: lisinopriL 20 MG TAB PO SCH (08:31)
[2020-04-22] MEDS: POTASSIUM CHLORIDE ER 20 MEQ TAB.ER PO SCH (08:31)
[2020-04-22] MEDS: carvediloL 6.25 MG TAB PO SCH ×2 (08:31→17:46)
[2020-04-22] MEDS: INSULIN ASPART (NovoLOG) 100 UNIT/ML VIAL SQ SCH ×4 (08:31→20:18)
[2020-04-22] MEDS: ASPIRIN 81 MG PO SCH (08:37)
[2020-04-22] MEDS: oxyCODONE-APAP 10-325MG 1 EACH TAB PO PRN ×2 (08:47→17:46)
[2020-04-22] MEDS: FORMOTEROL FUMARATE 20 MCG/2 ML NEBU INHALATION SCH ×2 (09:14→19:15)
[2020-04-22] MEDS: IPRATROPIUM-ALBUTEROL 3 ML NEB INHALATION SCH ×4 (09:14→19:15)
[2020-04-22] MEDS: BUDESONIDE 1 MG/2 ML NEBU INHALATION SCH ×2 (09:14→19:15)
[2020-04-22 11:56] LABS: Glucose,Whole Blood 132 mg/dL (75-99)
[2020-04-22] MEDS ORDERED: IV FLUID CONTINUATION 1,000 ML IV ONE ×2 (12:06)
[2020-04-22] MEDS ORDERED: PROPOFOL 10 MG/ML 20 ML VIAL IV ONE (12:25)
[2020-04-22] MEDS ORDERED: SUCCINYLCHOLINE CHLORIDE 100 MG/5 ML SYR IV ONE (12:25)
[2020-04-22] MEDS ORDERED: LIDOCAINE 1% INJ 10MG/ML (20 ML MDV) ONE (12:25)
[2020-04-22] MEDS ORDERED: SODIUM CHLORIDE 0.9% 500 ML 500 ML IV ONE (12:58)
--- NOTE | 2020-04-22 14:21 | P.PN ---
Subjective Progress Note Date: 04/22/20 Principal diagnosis: Dyspnea, lung mass, abnormal chest x-ray/CT 69-year-old white male patient, chronic smoker, recently quit 2 weeks ago, with known history of COPD, chronic CHF with unknown EF, history of NC, coronary artery disease with previous stenting, PVD with previous intervention, chronic back pain who presented to [facility] for worsening dyspnea days prior to presentation. Patient was recently hospitalized from 04/11/2020 through 04/13/2020 at [facility] for pneumonia, and he was on 7 day course of oral Levaquin, however his symptoms progressed, he feels more short of breath, he complains of lack of energy, he has a semi-productive congested cough. He was tested for COVID 19 at [facility], and was found to be negative. Patient was started on antibiotics, IV steroids, breathing treatments. Blood cultures 2 were obtained, chest x-ray showed mild patchy infiltrate in the lower lung rushing and more on the right side. CTA chest was completed at [place] to rule out PE and was negative for PE however it did show bilateral pneumonia, massive mediastinal and right bronchial adenopathy suggestive of tumor, possibly related to lymphoma or primary lung malignancy. There was of lung mass in the anterior right middle lobe suspicious for tumor, there was encasement of the right lower lobe pulmonary artery with narrowing of the vessel. Patient was transferred to the [facility] for further evaluation and treatment for pneumonia and new finding of a lung mass. His blood work here showed a white blood cell, 7.1, hemoglobin is 11.7, sodium is 133, the rest of electrolytes and renal profile were unremarkable, patient admitted to losing weight, and feeling weak, in addition he is quite bronchos pastic, and his COPD is active. On 04/22/2020 patient seen in follow-up prior to his bronchoscopy in the endoscopy suite, he is on room air, pulse ox of 95%, hemodynamically stable, afebrile. Had no acute issues overnight. Remains on antibiotics in the form of Rocephin and azithromycin, he is on IV steroids, bronchodilators, patient has been scheduled for bronchoscopy with BAL and biopsies of the right lung mass today Objective - Vital Signs Vital signs: Vital Signs Temp 97.8 F 04/22/20 08:00 Pulse 100 04/22/20 10:54 Resp 16 04/22/20 08:00 BP 173/84 04/22/20 08:00 Pulse Ox 95 04/22/20 08:00 Intake & Output 04/21/20 04/22/20 04/22/20 18:59 06:59 18:59 Intake Total 1020 600 300 Output Total 800 1125 Balance 1020 -200 -825 Weight 84.5 kg Intake: IV 300 Intake, IV Titration 300 Amount Azithromycin 500 mg In 250 Sodium Chloride 0.9% 250 ml @ 250 mls/hr IVPB Q24H MARAL Rx#:[id number] cefTRIAXone 1 gm In 50 Sodium Chloride 0.9% 50 ml @ 100 mls/hr IVPB Q24H MARAL Rx#:[id number] Oral 720 600 Output: Urine 800 1125 Other: Voiding Method Toilet Toilet Toilet Urinal Urinal Urinal # Voids 4 - Exam GENERAL EXAM: Alert, pleasant, 69-year-old white male, on 4 L of oxygen with pulse ox of 100% comfortable in no apparent distress. HEAD: Normocephalic/atraumatic. EYES: Normal reaction of pupils, equal size. Conjunctiva pink, sclera white. NOSE: Clear with pink turbinates. THROAT: No erythema or exudates. NECK: No masses, no JVD, no thyroid enlargement, no adenopathy. CHEST: No chest wall deformity. Symmetrical expansion. LUNGS: Equal air entry with diffuse wheezes CVS: Regular rate and rhythm, normal S1 and S2, no gallops, no murmurs, no rubs ABDOMEN: Soft, nontender. No hepatosplenomegaly, normal bowel sounds, no guarding or rigidity. EXTREMITIES: No clubbing, no edema, no cyanosis, 2+ pulses and upper and lower extremities. MUSCULOSKELETAL: Muscle strength and tone normal. SPINE: No scoliosis or deformity SKIN: No rashes CENTRAL NERVOUS SYSTEM: Alert and oriented -3. No focal deficits, tone is normal in all 4 extremities. PSYCHIATRIC: Alert and oriented -3. Appropriate affect. Intact judgment and insight. - Labs CBC & Chem 7: 04/21/20 06:38 04/21/20 06:38 Labs: Abnormal Lab Results - Last 24 Hours (Table) 04/21/20 04/21/20 04/21/20 Range/Units 16:53 19:49 21:52 POC Glucose (mg/dL) 214 H 136 H 175 H (75-99) mg/dL 04/22/20 04/22/20 Range/Units 07:26 11:41 POC Glucose (mg/dL) 150 H 132 H (75-99) mg/dL Assessment and Plan Plan: Assessment: #1. Acute hypoxic respiratory failure related to bilateral pneumonia, likely community acquired, ruled out for COVID 19 at [facility] #2. Right lung pulmonary mass with massive mediastinal and right bronchial adenopathy, new finding, could be related to underlying lymphoma or primary lung malignancy #3. Acute exacerbation of COPD #4. Unintentional 25 pound weight loss since the summer of this year #5. History of COPD #6. Hypertension #7. Chronic congestive heart failure with unknown EF #8. Previous history of myocardial infarction #9. Coronary artery disease with previous stenting #10. History of PVD with previous intervention #11. Daily EtOH use #12. Previous history of pneumonia #13. History of smoking, in remission for last 2 weeks #14. Family history of lung cancer in his father Plan: Continue current antibiotics, IV steroids and bronchodilators, patient underwent a bronchoscopy with biopsies of the right lung mass, awaiting results of the biopsies, consult medical oncology and radiation oncology. Continue to follow I performed a history & physical examination of the patient and discussed their management with my nurse practitioner, Lexii Gilmore. I reviewed the nurse practitioner's note and agree with the documented findings and plan of care. Lung sounds are positive for diffuse wheezes throughout the lung rushing. The findings and the impression was discussed with the patient. I attest to the documentation by the nurse practitioner. Time with Patient: Less than 30
[2020-04-22 15:06] LABS: Basophils % (A) 0 %; Eosinophils # (A) 0.2 k/uL (0-0.7); Eosinophils % (A) 1 %; HCT 38.5 % (39.0-53.0); HGB 11.8 gm/dL (13.0-17.5); Hypochromasia Slight; Lymphocytes # (A) 0.5 k/uL (1.0-4.8); Lymphocytes % (A) 3 %; MCH 26.5 pg (25.0-35.0); MCHC 30.7 g/dL (31.0-37.0); MCV 86.5 fL (80.0-100.0); Mean Platelet Volume 6.5; Monocytes # (A) 0.4 k/uL (0-1.0); Monocytes % (A) 3 %; Neutrophils # (A) 14.8 k/uL (1.3-7.7); Neutrophils % (A) 93 %; Platelet Count 589 k/uL (150-450); RBC 4.46 m/uL (4.30-5.90); RDW 15.1 % (11.5-15.5); WBC 15.9 k/uL (3.8-10.6)
--- NOTE | 2020-04-22 15:14 | MR ---
EXAMINATION TYPE: MR brain wo/w con DATE OF EXAM: 04/22/2020 2:53 PM COMPARISON: NONE HISTORY: Lung cancer CONTRAST: Patient received 7.5 mL intravenous Gadavist gadolinium contrast. Multiplanar and multispin-echo imaging of the brain was performed . Pre and post contrast enhanced i mages are obtained. The ventricles, basal cisterns and sulci overlying the cerebral convexities are mildly enlarged. There is evidence of mild periventricular white matter ischemic demyelination. Remote deep white matter insults are also noted. No acute edema is seen on diffusion weighted imaging. There is no evidence for midline shift or mass effect. Acute intracranial hemorrhage or extra-axial collection is not evident. No enhancing lesions are seen. The paranasal sinuses and mastoid air cells are well-aerated. IMPRESSION: Age-related atrophic and chronic small vessel ischemic change. No acute intracranial process at this time. No enhancing lesions are seen.
[2020-04-22] MEDS: AZITHROMYCIN 500 MG in SODIUM CHLORIDE 0.9% 250 ML IVPB SCH (16:19)
[2020-04-22 16:36] LABS: Glucose,Whole Blood 199 mg/dL (75-99)
--- NOTE | 2020-04-22 17:18 | OP ---
OPERATIVE REPORT OPERATIVE REPORT: Bronchoscopy, multiple endobronchial biopsies of a carinal tumor, multiple Castellon needle aspirations and core biopsy with a Castellon needle, washings and lavage of the area of the tumor and the sera. PREOPERATIVE DIAGNOSIS: Bronchogenic carcinoma. POSTOPERATIVE DIAGNOSIS: Bronchogenic carcinoma. ANESTHESIA USED: The patient was given general anesthesia, intubated by MONOTYPE MACHINIST prior to the procedure. PROCEDURE DESCRIPTION: Patient was placed in supine position, intubated by MONOTYPE MACHINIST, and after intubation the bronchoscope was advanced through the adapter on the endotracheal tube and went down to the distal trachea. As soon as the distal trachea was visualized, we were able to visualize a fairly large tumor involving the sera. It is cauliflower in shape and and seems to be extending through the whole carinal area. It seems to be involving the right side of the sera more so than the left side. I was able to visualize the left upper lobe lingula and left lower lobe; however, on the right side visualization was limited only to the right upper lobe. I could not visualize the bronchus intermedius, right middle lobe or right lower lobe since it was all occluded by the large carinal tumor. At any rate, multiple biopsies were done of the tumor with direct visualization. These were basically from the sera itself. Washings of the tumor were also performed. Then a transcarinal core biopsy was done, and multiple passes were done for tissue cytology using the Castellon needle. The procedure was well tolerated. Blood loss was extremely minimal. Procedure ended without any complications. The patient was transferred back to the floor, and I was able to communicate to the patient after he was admitted to the floor again and updated him on the findings. MMODL / IJN: [id number] /
--- NOTE | 2020-04-22 18:26 | P.PN ---
Subjective Progress Note Date: 04/23/20 Principal diagnosis: New Lung Mass Patient seen and evaluated. Reviewed MRI brain and CT abdomen and pelvis which are negative for malignancy. He is status post bronchoscopy today with biopsy of lung mass ivading into sera. He is a lifelong smoker, although to note his father did have lung cancer and was a lifelong non-smoker. Patient is anxious and tearful at the probable diagnosis of cancer. support given as we await final path for more definitive treatment options and plan. Objective - Vital Signs Vital signs: Vital Signs Temp 98.1 F 04/22/20 13:15 Pulse 98 04/22/20 15:42 Resp 16 04/22/20 13:15 BP 168/89 04/22/20 13:35 Pulse Ox 98 04/22/20 15:31 Intake & Output 04/21/20 04/22/20 04/22/20 18:59 06:59 18:59 Intake Total 1020 600 300 Output Total 800 1125 Balance 1020 -200 -825 Weight 84.5 kg Intake: IV 300 Intake, IV Titration 300 Amount Azithromycin 500 mg In 250 Sodium Chloride 0.9% 250 ml @ 250 mls/hr IVPB Q24H MARAL Rx#:[id number] cefTRIAXone 1 gm In 50 Sodium Chloride 0.9% 50 ml @ 100 mls/hr IVPB Q24H MARAL Rx#:[id number] Oral 720 600 Output: Urine 800 1125 Other: Voiding Method Toilet Toilet Toilet Urinal Urinal Urinal # Voids 4 - Exam - Constitutional General appearance: no acute distress - EENT Eyes: EOMI, PERRLA ENT: hearing grossly normal, normal oropharynx - Neck Neck: no lymphadenopathy Thyroid: bilateral: normal size - Respiratory Respiratory: right: diminished and diffuse expiratory wheezing - Cardiovascular Rhythm: regular Heart sounds: normal: S1, S2 - Gastrointestinal General gastrointestinal: normal bowel sounds, soft - Integumentary Integumentary: normal - Neurologic Neurologic: CNII-XII intact - Musculoskeletal Musculoskeletal: generalized weakness, strength equal bilaterally - Psychiatric Psychiatric: A&O x's 3, appropriate affect - Labs CBC & Chem 7: 04/22/20 14:44 04/22/20 14:44 Labs: Abnormal Lab Results - Last 24 Hours (Table) 04/21/20 04/21/20 04/22/20 Range/Units 19:49 21:52 07:26 WBC (3.8-10.6) k/uL Hgb (13.0-17.5) gm/dL Hct (39.0-53.0) % MCHC (31.0-37.0) g/dL Plt Count (150-450) k/uL Neutrophils # (1.3-7.7) k/uL Lymphocytes # (1.0-4.8) k/uL POC Glucose (mg/dL) 136 H 175 H 150 H (75-99) mg/dL 04/22/20 04/22/20 04/22/20 Range/Units 11:41 14:44 16:34 WBC 15.9 H (3.8-10.6) k/uL Hgb 11.8 L (13.0-17.5) gm/dL Hct 38.5 L (39.0-53.0) % MCHC 30.7 L (31.0-37.0) g/dL Plt Count 589 H (150-450) k/uL Neutrophils # 14.8 H (1.3-7.7) k/uL Lymphocytes # 0.5 L (1.0-4.8) k/uL POC Glucose (mg/dL) 132 H 199 H (75-99) mg/dL Assessment and Plan Plan: Chest x-ray: report reviewed CT scan - chest: report reviewed Assessment and Plan Mass of right lung - New central right lung mass, as well as massive mediastinal adenopathy. - Local picture is highly suspicious for malignancy with involvement of the mediastinal lymph nodes. - Even the patient's history of smoking and the clinical picture, lung primary with mediastinal involvement, or conversely Center lung malignancy with parenchymal metastasis, is the main differential diagnosis. However other primary such as lymphoma are not ruled out. Also consideration to be made with father having primary lung cancer as a lifelong non-smoker. - Status Post Bronch with bx - Await results - MRI Brain, CT abd/Pelvis neg Pneumonia - This is persistent likely due to postobstructive phenomena . Patient is improved with steroids and antibiotics. Continue management per pulmonary medicine and admitting service Anxiety/Depression: - Xanax for intermittent use while awaiting pathology results
--- NOTE | 2020-04-22 18:49 | P.PN ---
Subjective Progress Note Date: 04/22/20 This is a 69-year-old male who was recently admitted with COPD acute exacerbation with possible acute bibasilar pneumonia, possibly gram-negative with a suspected lung mass and is being closely monitored. Pulmonary and oncology following. Radiation oncology consulted and patient is to undergo a bronchoscopy with biopsy today. Patient currently remains on breathing inhalational treatments along with steroids and will continue at this time. MRI of the brain is negative for any lesions or metastasis at this time. Patient is maintained on IV antibiotics in the form of Zithromax and Ceftriaxone and will continue at this time. Patient is maintained on duo-neb treatments four times daily and as needed for continued shortness of breath and wheezing as noted on exam. Case management following and a script was provided for a nebulizer as he will need to continue with nebulized treatments in the outpatient setting. Objective - Vital Signs Vital signs: Vital Signs Temp 98.1 F 04/22/20 13:15 Pulse 88 04/22/20 13:15 Resp 16 04/22/20 13:15 BP 168/89 04/22/20 13:35 Pulse Ox 95 04/22/20 13:15 Intake & Output 04/21/20 04/22/20 04/22/20 18:59 06:59 18:59 Intake Total 1020 600 300 Output Total 800 1125 Balance 1020 -200 -825 Weight 84.5 kg Intake: IV 300 Intake, IV Titration 300 Amount Azithromycin 500 mg In 250 Sodium Chloride 0.9% 250 ml @ 250 mls/hr IVPB Q24H [facility]AL Rx#:[id number] cefTRIAXone 1 gm In 50 Sodium Chloride 0.9% 50 ml @ 100 mls/hr IVPB Q24H MARAL Rx#:[id number] Oral 720 600 Output: Urine 800 1125 Other: Voiding Method Toilet Toilet Toilet Urinal Urinal Urinal # Voids 4 - Exam Gen: This is a 69-year-old male sitting up in bed awake, alert and oriented 3, well-developed, well-nourished. Temp is 98.1F, pulse is 88, respirations are 16, blood pressure is 157/89, oxygen saturation is 95% on room air HEENT: Head is atraumatic, normocephalic. Pupils equal, round. Sclerae is anicteric. NECK: Supple. No JVD. No lymphadenopathy. No thyromegaly. LUNGS: Diminished breath sounds bilaterally in the bases with scattered rhonchi and crackles noted. Expiratory wheezing noted on exam. No intercostal retractions. HEART: S1, S2 are muffled. ABDOMEN: Soft. Bowel sounds are present. No masses. No tenderness. EXTREMITIES: No pedal edema. No calf tenderness. NEUROLOGICAL: Patient is awake, alert and oriented x3. Cranial nerves 2 through 12 are grossly intact. - Labs CBC & Chem 7: 04/22/20 14:44 04/21/20 06:38 Labs: Abnormal Lab Results - Last 24 Hours (Table) 04/21/20 04/21/20 04/21/20 Range/Units 16:53 19:49 21:52 WBC (3.8-10.6) k/uL Hgb (13.0-17.5) gm/dL Hct (39.0-53.0) % MCHC (31.0-37.0) g/dL Plt Count (150-450) k/uL Neutrophils # (1.3-7.7) k/uL Lymphocytes # (1.0-4.8) k/uL POC Glucose (mg/dL) 214 H 136 H 175 H (75-99) mg/dL 04/22/20 04/22/20 04/22/20 Range/Units 07:26 11:41 14:44 WBC 15.9 H (3.8-10.6) k/uL Hgb 11.8 L (13.0-17.5) gm/dL Hct 38.5 L (39.0-53.0) % MCHC 30.7 L (31.0-37.0) g/dL Plt Count 589 H (150-450) k/uL Neutrophils # 14.8 H (1.3-7.7) k/uL Lymphocytes # 0.5 L (1.0-4.8) k/uL POC Glucose (mg/dL) 150 H 132 H (75-99) mg/dL Assessment and Plan Assessment: Chronic obstructive pulmonary disease acute exacerbation with possible acute bibasilar pneumonia possibly gram-negative Right hilar mass and lung cancer possibly anemia, normocytic anemia of chronic disease increased platelets Hyponatremia Increased random blood sugar History of congestive heart failure, ejection fraction unknown history of chronic obstructive pulmonary disease hypertension history of myocardial infarction History of chronic low back pain history of peripheral vascular disease with bilateral lower leg cellulitis History of MRSA history of coronary artery disease, stent Recommendations and discussion: Recommend to continue current medications, management, and symptomatic treatment. continue with breathing inhalational treatments, steroids, and antibiotics. Pulmonary following closely. Patient to undergo bronchoscopy with biopsy today. Oncology also following and radiation oncology consulted. Brain MRI negative for any metastatic lesions. Given multiple complex medical issues, prognosis is guarded. Further recommendations to follow.
[2020-04-22 20:13] LABS: Glucose,Whole Blood 181 mg/dL (75-99)
[2020-04-22] MEDS ORDERED: ALPRAZolam 0.25 MG TAB PO SCH (20:30)
[2020-04-22] MEDS: ALPRAZolam 0.25 MG TAB PO PRN (20:41)
--- NOTE | 2020-04-22 21:00 | XR ---
EXAMINATION TYPE: XR chest 1V portable DATE OF EXAM: 04/22/2020 COMPARISON: 04/20/2020 HISTORY: Short of breath TECHNIQUE: FINDINGS: Heart size is normal. There is some mild infiltrate at the right lung base. There is no hea rt failure. There is no definite pleural effusion. There is poor inspiration IMPRESSION: Poor inspiration with some pneumonia right lung base that is unchanged compared to recent exam. No heart failure seen. Right paratracheal adenopathy unchanged.
[2020-04-23 00:33] LABS: African American GFR (CKD) 106.4 (60.0-200.0); Anion Gap 10.9 mmol/L (4.00-12.00); BUN/Creat Ratio 28.75 Ratio (12.00-20.00); Calcium 9.4 mg/dL (8.7-10.3); Carbon Dioxide 28.1 mmol/L (21.6-31.8); Non-African American GFR(CKD) 91.8 (60.0-200.0); Potassium 4.5 mmol/L (3.5-5.5); Total Bilirubin 0.2 mg/dL (0.3-1.2)
[2020-04-23] MEDS: TEMAZEPAM 15 MG CAP PO PRN (00:52)
[2020-04-23] MEDS: oxyCODONE-APAP 10-325MG 1 EACH TAB PO PRN ×2 (04:08→12:14)
[2020-04-23] MEDS: methylPREDNISolone SOD SUCCI 125 MG/2 ML VIAL IV SCH ×4 (05:12→23:37)
[2020-04-23 06:42] LABS: Basophils % (A) 0 %; Eosinophils # (A) 0.1 k/uL (0-0.7); Eosinophils % (A) 0 %; HCT 36.1 % (39.0-53.0); HGB 11.6 gm/dL (13.0-17.5); Hypochromasia Slight; Lymphocytes # (A) 0.5 k/uL (1.0-4.8); Lymphocytes % (A) 4 %; MCH 27.4 pg (25.0-35.0); MCHC 32.2 g/dL (31.0-37.0); MCV 85.2 fL (80.0-100.0); Mean Platelet Volume 6.3; Monocytes # (A) 0.4 k/uL (0-1.0); Monocytes % (A) 3 %; Neutrophils # (A) 12.8 k/uL (1.3-7.7); Neutrophils % (A) 92 %; Platelet Count 475 k/uL (150-450); RBC 4.24 m/uL (4.30-5.90); RDW 14.9 % (11.5-15.5); WBC 13.8 k/uL (3.8-10.6)
[2020-04-23 07:19] LABS: Glucose,Whole Blood 167 mg/dL (75-99)
[2020-04-23] MEDS: FAMOTIDINE 20 MG TAB PO SCH (07:42)
[2020-04-23] MEDS: CLOPIDOGREL 75 MG TAB PO SCH (07:42)
[2020-04-23] MEDS: MULTIVITAMINS, THERA 1 EACH TAB PO SCH (07:42)
[2020-04-23] MEDS: ASPIRIN 81 MG PO SCH (07:42)
[2020-04-23] MEDS: lisinopriL 20 MG TAB PO SCH (07:42)
[2020-04-23] MEDS: carvediloL 6.25 MG TAB PO SCH ×2 (07:42→17:35)
[2020-04-23] MEDS: POTASSIUM CHLORIDE ER 20 MEQ TAB.ER PO SCH (07:42)
[2020-04-23] MEDS: FUROSEMIDE 20 MG TAB PO SCH (07:42)
[2020-04-23] MEDS: INSULIN ASPART (NovoLOG) 100 UNIT/ML VIAL SQ SCH ×4 (07:42→21:12)
[2020-04-23] MEDS: HYDROmorphone 0.5 MG/0.5 ML SYRINGE IVP PRN ×2 (07:43→16:52)
[2020-04-23] MEDS: HEPARIN SODIUM,PORCINE 5,000 UNIT/ML 1 ML VIAL SQ SCH ×2 (07:43→21:12)
[2020-04-23] MEDS: FORMOTEROL FUMARATE 20 MCG/2 ML NEBU INHALATION SCH ×2 (08:02→19:51)
[2020-04-23] MEDS: BUDESONIDE 1 MG/2 ML NEBU INHALATION SCH ×2 (08:02→19:51)
[2020-04-23] MEDS: IPRATROPIUM-ALBUTEROL 3 ML NEB INHALATION SCH ×4 (08:02→19:51)
[2020-04-23 11:51] LABS: Glucose,Whole Blood 198 mg/dL (75-99)
[2020-04-23] MEDS: ALPRAZolam 0.25 MG TAB PO PRN (11:56)
--- NOTE | 2020-04-23 14:15 | P.PN ---
Subjective Progress Note Date: 04/23/20 Principal diagnosis: Dyspnea, lung mass This is a very pleasant 69-year-old white male patient, chronic smoker, recently quit 2 weeks ago, with known history of COPD, chronic CHF with unknown EF, history of OK, coronary artery disease with previous stenting, PVD with previous intervention, chronic back pain who presented to [facility] for worsening dyspnea days prior to presentation. Patient was recently hospitalized from 04/11/2020 through 04/13/2020 at [facility] for pneumonia, and he was on 7 day course of oral Levaquin, however his symptoms progressed, he feels more short of breath, he complains of lack of energy, he has a semi-productive congested cough. He was tested for COVID 19 at [facility], and was found to be negative. Patient was started on antibiotics, IV steroids, breathing treatments. Blood cultures 2 were obtained, chest x-ray showed mild patchy infiltrate in the lower lung rushing and more on the right side. CTA chest was completed at [facility] to rule out PE and was negative for PE however it did show bilateral pneumonia, massive mediastinal and right bronchial adenopathy suggestive of tumor, possibly related to lymphoma or primary lung malignancy. There was of lung mass in the anterior right middle lobe suspicious for tumor, there was encasement of the right lower lobe pulmonary artery with narrowing of the vessel. Patient was transferred to the [facility] for further evaluation and treatment for pneumonia and new finding of a lung mass. His blood work here showed a white blood cell, 7.1, hemoglobin is 11.7, sodium is 133, the rest of electrolytes and renal profile were unremarkable, patient admitted to losing weight, and feeling weak, in addition he is quite bronchospastic, and his COPD is active. The patient is seen today 04/21/2020 in follow-up on the regular medical floor. He is currently sitting up at the bedside. Awake and alert in no acute distress. No worsening shortness of breath, cough or congestion. He is breathing easier today compared to yesterday. Less bronchospastic and wheezy. He is maintaining O2 saturation in the mid 90s on room air. He's afebrile. White count 13.5. Hemoglobin 11.5. Sodium 134. Potassium 4.6. Creatinine 0.6. He remains on bronchodilators, antibiotics in the form of ceftriaxone and azithromycin, IV Solu-Medrol. Plan is for bronchoscopy with biopsies of the right lung mass and mediastinal lymph nodes tomorrow. The patient is aware of the plan and agreeable. The patient is seen today 04/23/2020 in follow-up on the regular medical floor. He is currently resting comfortably in bed. Awake and alert in no acute distress. No worsening shortness of breath, cough or congestion. No hemoptysis. Chest x-ray continues to show some postobstructive pneumonia in the right lung base. Maintaining good O2 saturations up in the high 90s on room air. He did undergo bronchoscopy with biopsies Dr. aPul yesterday. He was found to have significant tumor burden right at the main sera with most of the tumor in the right mainstem with near complete obstruction of the right middle and right lower lobes. Pathology is pending. Radiation and medical oncology have been consulted. MRI of the brain revealed age-related atrophic and chronic small vessel ischemic changes. No acute intracranial process. No enhancing lesions. White count 13.8. Hemoglobin 11.6. Platelet count 475. He remains on antibiotics in the form of ceftriaxone and azithromycin. Continue on bronchodilators, IV Solu-Medrol. Objective - Vital Signs Vital signs: Vital Signs Temp 97.4 F L 04/23/20 08:00 Pulse 100 04/23/20 13:33 Resp 17 04/23/20 08:00 BP 171/85 04/23/20 08:00 Pulse Ox 97 04/23/20 08:00 Intake & Output 04/22/20 04/23/20 04/23/20 18:59 06:59 18:59 Intake Total 600 1100 Output Total 1125 500 Balance -525 600 Intake: IV 300 Intake, IV Titration 300 Amount Azithromycin 500 mg In 250 Sodium Chloride 0.9% 250 ml @ 250 mls/hr IVPB Q24H MARAL Rx#:[id number] cefTRIAXone 1 gm In 50 Sodium Chloride 0.9% 50 ml @ 100 mls/hr IVPB Q24H MARAL Rx#:[id number] Oral 1100 Output: Urine 1125 500 Other: Voiding Method Toilet Toilet Toilet Urinal Urinal Urinal # Voids 600 - Exam GENERAL EXAM: Alert, pleasant, 69-year-old male patient, on room air with pulse ox of 97% comfortable in no apparent distress. HEAD: Normocephalic/atraumatic. EYES: Normal reaction of pupils, equal size. Conjunctiva pink, sclera white. NOSE: Clear with pink turbinates. THROAT: No erythema or exudates. NECK: No masses, no JVD, no thyroid enlargement, no adenopathy. CHEST: No chest wall deformity. Symmetrical expansion. LUNGS: Equal air entry with few scattered rhonchi of the right lung CVS: Regular rate and rhythm, normal S1 and S2, no gallops, no murmurs, no rubs ABDOMEN: Soft, nontender. No hepatosplenomegaly, normal bowel sounds, no guarding or rigidity. EXTREMITIES: No clubbing, no edema, no cyanosis, 2+ pulses and upper and lower extremities. MUSCULOSKELETAL: Muscle strength and tone normal. SPINE: No scoliosis or deformity SKIN: No rashes CENTRAL NERVOUS SYSTEM: Alert and oriented -3. No focal deficits, tone is normal in all 4 extremities. PSYCHIATRIC: Alert and oriented -3. Appropriate affect. Intact judgment and insight. - Labs CBC & Chem 7: 04/23/20 06:14 04/22/20 14:44 Labs: Abnormal Lab Results - Last 24 Hours (Table) 04/22/20 04/22/20 04/22/20 Range/Units 14:44 14:44 16:34 WBC 15.9 H (3.8-10.6) k/uL RBC (4.30-5.90) m/uL Hgb 11.8 L (13.0-17.5) gm/dL Hct 38.5 L (39.0-53.0) % MCHC 30.7 L (31.0-37.0) g/dL Plt Count 589 H (150-450) k/uL Neutrophils # 14.8 H (1.3-7.7) k/uL Lymphocytes # 0.5 L (1.0-4.8) k/uL BUN/Creatinine Ratio 28.75 H (12.00-20.00) Ratio Glucose 222 H (70-110) mg/dL POC Glucose (mg/dL) 199 H (75-99) mg/dL Total Bilirubin 0.2 L (0.3-1.2) mg/dL Total Protein 6.0 L (6.2-8.2) g/dL 11/04/23/20 04/23/20 Range/Units 20:11 06:14 07:18 WBC 13.8 H (3.8-10.6) k/uL RBC 4.24 L (4.30-5.90) m/uL Hgb 11.6 L (13.0-17.5) gm/dL Hct 36.1 L (39.0-53.0) % MCHC (31.0-37.0) g/dL Plt Count 475 H (150-450) k/uL Neutrophils # 12.8 H (1.3-7.7) k/uL Lymphocytes # 0.5 L (1.0-4.8) k/uL BUN/Creatinine Ratio (12.00-20.00) Ratio Glucose (70-110) mg/dL POC Glucose (mg/dL) 181 H 167 H (75-99) mg/dL Total Bilirubin (0.3-1.2) mg/dL Total Protein (6.2-8.2) g/dL 04/23/20 Range/Units 11:49 WBC (3.8-10.6) k/uL RBC (4.30-5.90) m/uL Hgb (13.0-17.5) gm/dL Hct (39.0-53.0) % MCHC (31.0-37.0) g/dL Plt Count (150-450) k/uL Neutrophils # (1.3-7.7) k/uL Lymphocytes # (1.0-4.8) k/uL BUN/Creatinine Ratio (12.00-20.00) Ratio Glucose (70-110) mg/dL POC Glucose (mg/dL) 198 H (75-99) mg/dL Total Bilirubin (0.3-1.2) mg/dL Total Protein (6.2-8.2) g/dL Microbiology - Last 24 Hours (Table) 04/22/20 12:00 Gram Stain - Preliminary Bronchoalviolar Lavage - Right Bronchial Washings Culture - Preliminary Assessment and Plan Assessment: #1. Acute hypoxic respiratory failure related to bilateral pneumonia, likely community acquired, ruled out for COVID 19 at [facility]. Suspect some post obstructive pneumonia as well in the right lipase #2. Right pulmonary mass with massive mediastinal and right bronchial adenopathy. Status post bronchoscopy with biopsies on 04/22/2020. The mass was actually at the main sera extending more so in the right main bronchus with near complete occlusion of the right middle and lower lobes. Pathology pending. MRI of the brain revealed no enhancing lesions. #3. Acute exacerbation of COPD #4. Unintentional 25 pound weight loss since the summer of this year #5. History of COPD #6. Hypertension #7. Chronic congestive heart failure with unknown EF #8. Previous history of myocardial infarction #9. Coronary artery disease with previous stenting #10. History of PVD with previous intervention #11. Daily EtOH use #12. Previous history of pneumonia #13. History of smoking, in remission for last 2 weeks #14. Family history of lung cancer in his father Plan: The patient was seen and evaluated by Dr. Paul Concerns for possible complete occlusion of the right lung Tumor burden at the main sera with extension into the right mainstem bronchus May need radiation therapy prior to discharge Pathology pending We'll continue to follow I, the cosigning physician, performed a history & physical examination of the patient. Lungs sounds few scattered rhonchi of the right lung. Maintaining good O2 saturations in the 90s on room air. I discussed the assessment and plan of care with my nurse practitioner, Rosa Perez. I attest to the above note as urban nicole by her.
[2020-04-23] MEDS: AZITHROMYCIN 500 MG in SODIUM CHLORIDE 0.9% 250 ML IVPB SCH (16:52)
[2020-04-23 17:05] LABS: Glucose,Whole Blood 122 mg/dL (75-99)
[2020-04-23] MEDS ORDERED: ALPRAZolam 0.5 MG TAB PO STA (17:20)
--- NOTE | 2020-04-23 17:24 | P.PN ---
Subjective Progress Note Date: 04/23/20 Principal diagnosis: New Lung Mass Patient still very anxious today. He follows pain management for lower back pain, although percocet q8 and 0.5mg dilaudid is not helping to reduce to comfortable level. He is moving bowels. Discussed with patient and nursing. No paresthesias, numbness or weakness Objective - Vital Signs Vital signs: Vital Signs Temp 99.3 F 04/23/20 14:00 Pulse 84 04/23/20 14:00 Resp 16 04/23/20 14:00 BP 188/88 04/23/20 14:00 Pulse Ox 95 04/23/20 14:00 Intake & Output 04/22/20 04/23/20 04/23/20 18:59 06:59 18:59 Intake Total 600 1100 Output Total 1125 500 Balance -525 600 Intake: IV 300 Intake, IV Titration 300 Amount Azithromycin 500 mg In 250 Sodium Chloride 0.9% 250 ml @ 250 mls/hr IVPB Q24H [facility] Rx#:[id number] cefTRIAXone 1 gm In 50 Sodium Chloride 0.9% 50 ml @ 100 mls/hr IVPB Q24H [facility]AL Rx#:[id number] Oral 1100 Output: Urine 1125 500 Other: Voiding Method Toilet Toilet Toilet Urinal Urinal Urinal # Voids 600 - Exam - Constitutional General appearance: no acute distress - EENT Eyes: EOMI, PERRLA ENT: hearing grossly normal, normal oropharynx - Neck Neck: no lymphadenopathy Thyroid: bilateral: normal size - Respiratory Respiratory: right: diminished and diffuse expiratory wheezing - Cardiovascular Rhythm: regular Heart sounds: normal: S1, S2 - Gastrointestinal General gastrointestinal: normal bowel sounds, soft - Integumentary Integumentary: normal - Neurologic Neurologic: CNII-XII intact - Musculoskeletal Musculoskeletal: generalized weakness, strength equal bilaterally - Psychiatric Psychiatric: A&O x's 3, appropriate affect - Labs CBC & Chem 7: 04/23/20 06:14 04/22/20 14:44 Labs: Abnormal Lab Results - Last 24 Hours (Table) 04/22/20 04/22/20 04/23/20 Range/Units 14:44 20:11 06:14 WBC 13.8 H (3.8-10.6) k/uL RBC 4.24 L (4.30-5.90) m/uL Hgb 11.6 L (13.0-17.5) gm/dL Hct 36.1 L (39.0-53.0) % Plt Count 475 H (150-450) k/uL Neutrophils # 12.8 H (1.3-7.7) k/uL Lymphocytes # 0.5 L (1.0-4.8) k/uL BUN/Creatinine Ratio 28.75 H (12.00-20.00) Ratio Glucose 222 H (70-110) mg/dL POC Glucose (mg/dL) 181 H (75-99) mg/dL Total Bilirubin 0.2 L (0.3-1.2) mg/dL Total Protein 6.0 L (6.2-8.2) g/dL 04/23/20 04/23/20 04/23/20 Range/Units 07:18 11:49 17:03 WBC (3.8-10.6) k/uL RBC (4.30-5.90) m/uL Hgb (13.0-17.5) gm/dL Hct (39.0-53.0) % Plt Count (150-450) k/uL Neutrophils # (1.3-7.7) k/uL Lymphocytes # (1.0-4.8) k/uL BUN/Creatinine Ratio (12.00-20.00) Ratio Glucose (70-110) mg/dL POC Glucose (mg/dL) 167 H 198 H 122 H (75-99) mg/dL Total Bilirubin (0.3-1.2) mg/dL Total Protein (6.2-8.2) g/dL Microbiology - Last 24 Hours (Table) 04/22/20 12:00 Gram Stain - Preliminary Bronchoalviolar Lavage - Right Bronchial Washings Culture - Preliminary Assessment and Plan Plan: Chest x-ray: report reviewed CT scan - chest: report reviewed Assessment and Plan Mass of right lung - New central right lung mass, as well as massive mediastinal adenopathy. - Local picture is highly suspicious for malignancy with involvement of the mediastinal lymph nodes. - Even the patient's history of smoking and the clinical picture, lung primary with mediastinal involvement, or conversely Center lung malignancy with parenchymal metastasis, is the main differential diagnosis. However other pr imary such as lymphoma are not ruled out. Also consideration to be made with father having primary lung cancer as a lifelong non-smoker. - Status Post Bronch with bx - Await results - MRI Brain, CT abd/Pelvis neg Acute on Chronic Back Pain: - Bone scan for initial staging - Percocet q6prn and Dilaudid 1mg q4prn, add Robaxin as well Pneumonia - This is persistent likely due to postobstructive pneumonia . Patient is improved with steroids and antibiotics. Continue management per pulmonary medicine and admitting service Anxiety/Depression: - Continue Xanax for intermittent use while awaiting pathology results Consult for radiation oncology.
[2020-04-23] MEDS: PANTOPRAZOLE 40 MG TABLET PO SCH (17:35)
[2020-04-23] MEDS: methocarbamoL 500 MG TAB PO SCH ×2 (17:42→21:12)
[2020-04-23 20:27] LABS: Glucose,Whole Blood 201 mg/dL (75-99)
--- NOTE | 2020-04-23 22:28 | PN ---
PROGRESS NOTE DATE OF SERVICE: 04/23/2020 HISTORY OF PRESENT ILLNESS: This 69-year-old gentleman who was admitted with COPD acute exacerbation also possible acute bibasilar pneumonia also had significant lung lesion also. Carinal tumor was noted by Dr. Paul during the bronchoscopy. Dr. Paul would like to keep the patient in the hospital to avoid any further complications. Concerns of possible complete occlusion of the right lung were noted. Tumor burden was extensive into the right mainstem bronchus. The patient might need radiation prior to discharge according to the chummer. Dr. Ernst has been consulted. PAST MEDICAL HISTORY: Reviewed. REVIEW OF SYSTEMS: Cardiovascular : As mentioned earlier. Respirations as mentioned earlier. GI: As mentioned earlier. : No dysuria. NERVOUS SYSTEM: No numbness, no weakness. CURRENT MEDICATIONS: Reviewed and include: DuoNeb q.i.d. and p.r.n., Xanax. Aspirin. Zithromax, Pulmicort. Coreg. Rocephin. Plavix. Perforomist. Lasix. Heparin. NovoLog, Zestril, multivitamins, Protonix, K-Dur and Restoril. PHYSICAL EXAM: Patient is alert, oriented x3. Pulse 84, blood pressure 188/80, respiration 16, temperature 99.2, pulse ox 94% on room air. HEENT: Conjunctivae normal. NECK: No JVD. CARDIOVASCULAR: S1, S2 muffled. RESPIRATORY SYSTEM: Breath sounds diminished at the bases. A few scattered rhonchi and crackles. ABDOMEN: Soft, nontender. No mass palpable. LEGS no edema. NERVOUS SYSTEM: Higher functions as mentioned. Moves all four limbs. No focal motor or sensory deficits. LYMPHATICS: No lymph nodes palpable in the neck, axillae or groin. SKIN: No ulcer. No rash. No bleeding. JOINTS: No active deforming arthropathy. LAB STUDIES: Hemoglobin 7.6. ASSESSMENT: 1. Chronic obstructive pulmonary disease exacerbation with acute bibasilar pneumonia possibly gram-negative. 2. Right hilar mass and lung cancer possibly with the carinal tumor with high tumor burden, status post bronchoscopy and biopsy. 3. Anemia, normocytic anemia of chronic disease. 4. Increased platelets. 5. Hyponatremia. 6. Increased random blood sugar. 7. History of congestive heart failure, ejection fraction unknown. 8. History of chronic obstructive pulmonary disease. 9. Hypertension. 10.History of myocardial infarction. 11.History of chronic low back pain. 12.History of peripheral vascular disease with bilateral lower leg cellulitis. 13.History of MRSA. 14.History of coronary artery disease, stent. RECOMMENDATIONS AND DISCUSSION: I recommend to continue current medications, symptomatic treatment. Otherwise at this time, I recommend to monitor blood sugars closely. I would also recommend radiation therapy consultation for possible radiation. Await biopsy report. Repeat labs will be ordered. Otherwise, the patient is on broad-spectrum IV antibiotics currently. Cultures are negative and prognosis guarded. Further recommendations to follow. We will continue with IV steroids. Closely follow with Dr. Paul. MMVIRAL / EILEENN: [id number] /
[2020-04-23] MEDS: HYDROmorphone 1 MG/ML 1 ML SYRINGE IVP PRN (23:38)
[2020-04-24] MEDS: TEMAZEPAM 15 MG CAP PO PRN (00:57)
[2020-04-24 05:20] LABS: Basophils % (A) 0 %; Eosinophils % (A) 0 %; HCT 35.5 % (39.0-53.0); HGB 11.4 gm/dL (13.0-17.5); Hypochromasia Slight; Lymphocytes # (A) 0.5 k/uL (1.0-4.8); Lymphocytes % (A) 3 %; MCH 27.5 pg (25.0-35.0); MCHC 32.1 g/dL (31.0-37.0); MCV 85.4 fL (80.0-100.0); Mean Platelet Volume 6.2; Monocytes # (A) 0.5 k/uL (0-1.0); Monocytes % (A) 3 %; Neutrophils # (A) 15.4 k/uL (1.3-7.7); Neutrophils % (A) 94 %; Platelet Count 503 k/uL (150-450); RBC 4.15 m/uL (4.30-5.90); RDW 14.9 % (11.5-15.5); WBC 16.4 k/uL (3.8-10.6)
[2020-04-24] MEDS: oxyCODONE-APAP 10-325MG 1 EACH TAB PO PRN ×3 (05:48→18:26)
[2020-04-24] MEDS: methylPREDNISolone SOD SUCCI 125 MG/2 ML VIAL IV SCH ×4 (05:48→23:17)
[2020-04-24 07:15] LABS: Glucose,Whole Blood 159 mg/dL (75-99)
[2020-04-24] MEDS: INSULIN ASPART (NovoLOG) 100 UNIT/ML VIAL SQ SCH ×4 (07:25→21:08)
[2020-04-24] MEDS: BUDESONIDE 1 MG/2 ML NEBU INHALATION SCH ×2 (07:39→20:13)
[2020-04-24] MEDS: FORMOTEROL FUMARATE 20 MCG/2 ML NEBU INHALATION SCH ×2 (07:40→20:13)
[2020-04-24] MEDS: IPRATROPIUM-ALBUTEROL 3 ML NEB INHALATION SCH ×4 (07:40→20:13)
[2020-04-24] MEDS: ASPIRIN 81 MG PO SCH (07:54)
[2020-04-24] MEDS: lisinopriL 20 MG TAB PO SCH (07:54)
[2020-04-24] MEDS: carvediloL 6.25 MG TAB PO SCH ×2 (07:54→16:43)
[2020-04-24] MEDS: PANTOPRAZOLE 40 MG TABLET PO SCH ×2 (07:54→16:43)
[2020-04-24] MEDS: CLOPIDOGREL 75 MG TAB PO SCH (07:54)
[2020-04-24] MEDS: FUROSEMIDE 20 MG TAB PO SCH (07:54)
[2020-04-24] MEDS: HEPARIN SODIUM,PORCINE 5,000 UNIT/ML 1 ML VIAL SQ SCH ×2 (07:55→21:08)
[2020-04-24] MEDS: HYDROmorphone 1 MG/ML 1 ML SYRINGE IVP PRN ×4 (07:55→23:16)
[2020-04-24] MEDS: MULTIVITAMINS, THERA 1 EACH TAB PO SCH (07:56)
[2020-04-24] MEDS: POTASSIUM CHLORIDE ER 20 MEQ TAB.ER PO SCH (07:56)
[2020-04-24] MEDS: methocarbamoL 500 MG TAB PO SCH ×3 (07:57→21:08)
[2020-04-24] MEDS ORDERED: LORazepam 2 MG/ML INJ IV STA (09:40)
[2020-04-24 10:00] LABS: African American GFR (CKD) 119.7 (60.0-200.0); Anion Gap 5.6 mmol/L (4.00-12.00); BUN/Creat Ratio 43.33 Ratio (12.00-20.00); Calcium 9.4 mg/dL (8.7-10.3); Carbon Dioxide 32.4 mmol/L (21.6-31.8); Non-African American GFR(CKD) 103.3 (60.0-200.0); Potassium 4.5 mmol/L (3.5-5.5)
[2020-04-24 11:58] LABS: Glucose,Whole Blood 167 mg/dL (75-99)
--- NOTE | 2020-04-24 12:14 | NM ---
EXAMINATION TYPE: NM bone scan whole body DATE OF EXAM: 04/24/2020 COMPARISON: CT abdomen and pelvis 3 days ago. HISTORY: Back pain with history of lung cancer. Delayed whole-body scanning was performed following the injection of 25 mCi Tc 99m MDP. Images acqui red 3 hours post injection. Images of the whole body and anterior and posterior projection along with additional Ace images of the thorax abdomen and upper pelvis FINDINGS: There is underlying S-shaped scoliosis. There is no suspicious radiotracer uptake to sugges t metastatic disease to the bone. Mild symmetric uptake level of bilateral shoulders is felt to refle ct product of degenerative change. Increased uptake left knee joint and right ankle joint is felt to reflect increased degenerative change at these levels. Normal excretion in the bladder. IMPRESSION: No osseous metastatic disease identified.
--- NOTE | 2020-04-24 13:50 | P.PN ---
Subjective Progress Note Date: 04/24/20 Principal diagnosis: Dyspnea, lung mass This is a very pleasant 69-year-old white male patient, chronic smoker, recently quit 2 weeks ago, with known history of COPD, chronic CHF with unknown EF, history of PA, coronary artery disease with previous stenting, PVD with previous intervention, chronic back pain who presented to [facility] for worsening dyspnea days prior to presentation. Patient was recently hospitalized from 04/11/2020 through 04/13/2020 at [facility] for pneumonia, and he was on 7 day course of oral Levaquin, however his symptoms progressed, he feels more short of breath, he complains of lack of energy, he has a semi-productive congested cough. He was tested for COVID 19 at [facility], and was found to be negative. Patient was started on antibiotics, IV steroids, breathing treatments. Blood cultures 2 were obtained, chest x-ray showed mild patchy infiltrate in the lower lung rushing and more on the right side. CTA chest was completed at [place] to rule out PE and was negative for PE however it did show bilateral pneumonia, massive mediastinal and right bronchial adenopathy suggestive of tumor, possibly related to lymphoma or primary lung malignancy. There was of lung mass in the anterior right middle lobe suspicious for tumor, there was encasement of the right lower lobe pulmonary artery with narrowing of the vessel. Patient was transferred to the [facility] for further evaluation and treatment for pneumonia and new finding of a lung mass. His blood work here showed a white blood cell, 7.1, hemoglobin is 11.7, sodium is 133, the rest of electrolytes and renal profile were unremarkable, patient admitted to losing weight, and feeling weak, in addition he is quite bronchospastic, and his COPD is active. The patient is seen today 04/21/2020 in follow-up on the regular medical floor. He is currently sitting up at the bedside. Awake and alert in no acute distress. No worsening shortness of breath, cough or congestion. He is breathing easier today compared to yesterday. Less bronchospastic and wheezy. He is maintaining O2 saturation in the mid 90s on room air. He's afebrile. White count 13.5. Hemoglobin 11.5. Sodium 134. Potassium 4.6. Creatinine 0.6. He remains on bronchodilators, antibiotics in the form of ceftriaxone and azithromycin, IV Solu-Medrol. Plan is for bronchoscopy with biopsies of the right lung mass and mediastinal lymph nodes tomorrow. The patient is aware of the plan and agreeable. The patient is seen today 04/23/2020 in follow-up on the regular medical floor. He is currently resting comfortably in bed. Awake and alert in no acute distress. No worsening shortness of breath, cough or congestion. No hemoptysis. Chest x-ray continues to show some postobstructive pneumonia in the right lung base. Maintaining good O2 saturations up in the high 90s on room air. He did undergo bronchoscopy with biopsies Dr. Paul yesterday. He was found to have significant tumor burden right at the main sera with most of the tumor in the right mainstem with near complete obstruction of the right middle and right lower lobes. Pathology is pending. Radiation and medical oncology have been consulted. MRI of the brain revealed age-related atrophic and chronic small vessel ischemic changes. No acute intracranial process. No enhancing lesions. White count 13.8. Hemoglobin 11.6. Platelet count 475. He remains on antibiotics in the form of ceftriaxone and azithromycin. Continue on bronchodilators, IV Solu-Medrol. The patient is seen today 04/24/2020 in follow-up on the regular medical floor. He is currently sitting up at the bedside. Awake and alert in no acute distress. He continues with a loose nonproductive cough. No fever chills or night sweats. Maintaining good O2 saturations in the upper 90s on 2 L/m per nasal cannula. He's afebrile. White count 16.4. Hemoglobin 11.4. Sodium 135. Potassium 4.5. Creatinine 0.6. Calcium 9.4. Remains on antibiotics in the form of ceftriaxone and azithromycin. Continued on bronchodilators. IV Solu- Medrol. Heparin for DVT prophylaxis. Bone scan revealed no osseous metastatic disease identified. Objective - Vital Signs Vital signs: Vital Signs Temp 98.1 F 04/24/20 08:00 Pulse 78 04/24/20 12:25 Resp 16 04/24/20 08:00 BP 186/89 04/24/20 08:00 Pulse Ox 98 04/24/20 08:00 Intake & Output 04/23/20 04/24/20 04/24/20 18:59 06:59 18:59 Intake Total 600 Output Total 800 Balance -200 Weight 85 kg Intake: Oral 600 Output: Urine 800 Other: Voiding Method Toilet Toilet Toilet Urinal Urinal Urinal - Exam GENERAL EXAM: Alert, pleasant, 69-year-old male patient, on 2 L nasal cannula, comfortable in no apparent distress. HEAD: Normocephalic/atraumatic. EYES: Normal reaction of pupils, equal size. Conjunctiva pink, sclera white. NOSE: Clear with pink turbinates. THROAT: No erythema or exudates. NECK: No masses, no JVD, no thyroid enlargement, no adenopathy. CHEST: No chest wall deformity. Symmetrical expansion. LUNGS: Equal air entry with few scattered rhonchi of the right lung CVS: Regular rate and rhythm, normal S1 and S2, no gallops, no murmurs, no rubs ABDOMEN: Soft, nontender. No hepatosplenomegaly, normal bowel sounds, no guarding or rigidity. EXTREMITIES: No clubbing, no edema, no cyanosis, 2+ pulses and upper and lower extremities. MUSCULOSKELETAL: Muscle strength and tone normal. SPINE: No scoliosis or deformity SKIN: No rashes CENTRAL NERVOUS SYSTEM: Alert and oriented -3. No focal deficits, tone is normal in all 4 extremities. PSYCHIATRIC: Alert and oriented -3. Appropriate affect. Intact judgment and insight. - Labs CBC & Chem 7: 04/24/20 04:17 04/24/20 04:17 Labs: Abnormal Lab Results - Last 24 Hours (Table) 04/23/20 04/23/20 04/24/20 Range/Units 17:03 20:26 04:17 WBC 16.4 H (3.8-10.6) k/uL RBC 4.15 L (4.30-5.90) m/uL Hgb 11.4 L (13.0-17.5) gm/dL Hct 35.5 L (39.0-53.0) % Plt Count 503 H (150-450) k/uL Neutrophils # 15.4 H (1.3-7.7) k/uL Lymphocytes # 0.5 L (1.0-4.8) k/uL Carbon Dioxide (21.6-31.8) mmol/L BUN/Creatinine Ratio (12.00-20.00) Ratio Glucose (70-110) mg/dL POC Glucose (mg/dL) 122 H 201 H (75-99) mg/dL 04/24/20 04/24/20 04/24/20 Range/Units 04:17 07:13 11:57 WBC (3.8-10.6) k/uL RBC (4.30-5.90) m/uL Hgb (13.0-17.5) gm/dL Hct (39.0-53.0) % Plt Count (150-450) k/uL Neutrophils # (1.3-7.7) k/uL Lymphocytes # (1.0-4.8) k/uL Carbon Dioxide 32.4 H (21.6-31.8) mmol/L BUN/Creatinine Ratio 43.33 H (12.00-20.00) Ratio Glucose 155 H (70-110) mg/dL POC Glucose (mg/dL) 159 H 167 H (75-99) mg/dL Microbiology - Last 24 Hours (Table) 04/22/20 12:00 Gram Stain - Preliminary Bronchoalviolar Lavage - Right Bronchial Washings Culture - Preliminary Assessment and Plan Assessment: #1. Acute hypoxic respiratory failure related to bilateral pneumonia, ruled out for COVID 19 at [facility]. Suspect post obstructive pneumonia #2. Right pulmonary mass with massive mediastinal and right bronchial suzi opathy. Status post bronchoscopy with biopsies on 04/22/2020. The mass was actually at the main sera extending more so in the right main bronchus with near complete occlusion of the right middle and lower lobes. Pathology pending. MRI of the brain revealed no enhancing lesions. Bone scan reveals no evidence of osseous metastatic disease. #3. Acute exacerbation of COPD #4. Unintentional 25 pound weight loss since the summer of this year #5. History of COPD #6. Hypertension #7. Chronic congestive heart failure with unknown EF #8. Previous history of myocardial infarction #9. Coronary artery disease with previous stenting #10. History of PVD with previous intervention #11. Daily EtOH use #12. Previous history of pneumonia #13. History of smoking, in remission for last 2 weeks #14. Family history of lung cancer in his father Plan: The patient was seen and evaluated by Dr. Paul Currently maintaining good O2 saturations on 2 L/m per nasal cannula Concerns for possible complete occlusion of the right lung Tumor burden at the main sera with extension into the right mainstem bronchus May need radiation therapy prior to discharge Pathology pending We'll continue to follow I, the cosigning physician, performed a history & physical examination of the patient. Lungs sounds few scattered rhonchi of the right lung. Maintaining good O2 saturations in the 90s on 2 L/m per nasal cannula. I discussed the assessment and plan of care with my nurse practitioner, Rosa Perez. I attest to the above note as dictated by her.
--- NOTE | 2020-04-24 14:17 | P.PN ---
Subjective Progress Note Date: 04/24/20 Principal diagnosis: New Lung Mass Continue to await path, he remains anxious although ativan and/or xanax has helped. Bone scan was negative for metastatic disease. Objective - Vital Signs Vital signs: Vital Signs Temp 98.1 F 04/24/20 08:00 Pulse 78 04/24/20 12:25 Resp 16 04/24/20 08:00 BP 186/89 04/24/20 08:00 Pulse Ox 98 04/24/20 08:00 Intake & Output 04/23/20 04/24/20 04/24/20 18:59 06:59 18:59 Intake Total 600 Output Total 800 Balance -200 Weight 85 kg Intake: Oral 600 Output: Urine 800 Other: Voiding Method Toilet Toilet Toilet Urinal Urinal Urinal - Exam - Constitutional General appearance: no acute distress - EENT Eyes: EOMI, PERRLA ENT: hearing grossly normal, normal oropharynx - Neck Neck: no lymphadenopathy Thyroid: bilateral: normal size - Respiratory Respiratory: right: diminished and diffuse expiratory wheezing - Cardiovascular Rhythm: regular Heart sounds: normal: S1, S2 - Gastrointestinal General gastrointestinal: normal bowel sounds, soft - Integumentary Integumentary: normal - Neurologic Neurologic: CNII-XII intact - Musculoskeletal Musculoskeletal: generalized weakness, strength equal bilaterally - Psychiatric Psychiatric: A&O x's 3, appropriate affect - Labs CBC & Chem 7: 04/24/20 04:17 04/24/20 04:17 Labs: Abnormal Lab Results - Last 24 Hours (Table) 04/23/20 04/23/20 04/24/20 Range/Units 17:03 20:26 04:17 WBC 16.4 H (3.8-10.6) k/uL RBC 4.15 L (4.30-5.90) m/uL Hgb 11.4 L (13.0-17.5) gm/dL Hct 35.5 L (39.0-53.0) % Plt Count 503 H (150-450) k/uL Neutrophils # 15.4 H (1.3-7.7) k/uL Lymphocytes # 0.5 L (1.0-4.8) k/uL Carbon Dioxide (21.6-31.8) mmol/L BUN/Creatinine Ratio (12.00-20.00) Ratio Glucose (70-110) mg/dL POC Glucose (mg/dL) 122 H 201 H (75-99) mg/dL 04/24/20 04/24/20 04/24/20 Range/Units 04:17 07:13 11:57 WBC (3.8-10.6) k/uL RBC (4.30-5.90) m/uL Hgb (13.0-17.5) gm/dL Hct (39.0-53.0) % Plt Count (150-450) k/uL Neutrophils # (1.3-7.7) k/uL Lymphocytes # (1.0-4.8) k/uL Carbon Dioxide 32.4 H (21.6-31.8) mmol/L BUN/Creatinine Ratio 43.33 H (12.00-20.00) Ratio Glucose 155 H (70-110) mg/dL POC Glucose (mg/dL) 159 H 167 H (75-99) mg/dL Microbiology - Last 24 Hours (Table) 04/22/20 12:00 Gram Stain - Preliminary Bronchoalviolar Lavage - Right Bronchial Washings Culture - Preliminary Assessment and Plan Plan: Chest x-ray: report reviewed CT scan - chest: report reviewed Assessment and Plan Mass of right lung - New central right lung mass, as well as massive mediastinal adenopathy. - Local picture is highly suspicious for malignancy with involvement of the mediastinal lymph nodes. - Even the patient's history of smoking and the clinical picture, lung primary with mediastinal involvement, or conversely Center lung malignancy with parenchy mal metastasis, is the main differential diagnosis. However other primary such as lymphoma are not ruled out. Also consideration to be made with father having primary lung cancer as a lifelong non-smoker. - Status Post Bronch with bx - Await results - MRI Brain, CT abd/Pelvis neg Acute on Chronic Back Pain: - Bone scan negative for metastatic disease - Continue with regimen - Patient to follow with Pain management after discharge as unrelated to malignancy Pneumonia - This is persistent likely due to postobstructive pneumonia . Patient is improved with steroids and antibiotics. Continue management per pulmonary medicine and admitting service Anxiety/Depression: - Continue Xanax for intermittent use while awaiting pathology results Consult for radiation oncology. Await Path Add PPI with active steroids COntinue Supportive care and emotional support
[2020-04-24 14:28] VITALS: RESP 18
[2020-04-24] MEDS: AZITHROMYCIN 500 MG in SODIUM CHLORIDE 0.9% 250 ML IVPB SCH (16:43)
[2020-04-24] MEDS: ALPRAZolam 0.25 MG TAB PO PRN (16:43)
[2020-04-24 17:28] LABS: Glucose,Whole Blood 147 mg/dL (75-99)
[2020-04-24] MEDS: amLODIPine 5 MG TAB PO SCH (18:10)
[2020-04-24 20:15] LABS: Glucose,Whole Blood 228 mg/dL (75-99)
--- NOTE | 2020-04-25 00:23 | PN ---
PROGRESS NOTE DATE OF SERVICE: 04/24/2020 This 69-year-old gentleman who was admitted with COPD acute exacerbation, bibasilar pneumonia also had right hilar lung mass. Dr. Paul performed a bronchoscopy which showed significant mass lesion of the sera and tumor burden as well as possible impending obstruction so radiation therapy is being consulted. Hematology/Oncology following the patient closely. Bone scan did not show any other acute abnormality indicative of metastasis elsewhere, but however the final biopsy reports are pending at this time. Brain MRI is also noted. Patient is extremely anxious. PAST MEDICAL HISTORY: Reviewed. REVIEW OF SYSTEMS: CARDIOVASCULAR SYSTEM: No angina. RESPIRATORY SYSTEM: As mentioned earlier. HEMATOLOGY/ONCOLOGY: As mentioned earlier. CURRENT MEDICATIONS: Current medications are reviewed and include DuoNeb, Xanax, aspirin, Zithromax, Pulmicort, Coreg, Rocephin, Perforomist, heparin, Dilaudid, Zestril, Solu-Medrol, Percocet, K-Dur, Restoril. PHYSICAL EXAMINATION: Patient is alert and oriented x3. Pulse 82, blood pressure 172/84, respiration 18, temperature 98.2, pulse ox 97% on room air HEENT: Conjunctivae normal. NECK: No jugular venous distention. CARDIOVASCULAR: S1, S2 muffled. RESPIRATORY: Breath sounds diminished at the bases. A few scattered rhonchi and crackles. ABDOMEN: Soft. Nontender. NERVOUS SYSTEM: No focal deficits. LABS: Labs are at this time show WBC count 16.4, hemoglobin 11.4. Accu-Cheks noted. ASSESSMENT: 1. Chronic obstructive pulmonary disease acute exacerbation with acute bibasilar pneumonia with possibly gram-negative. 2. Right hilar mass and lung cancer possibly with carinal tumor with high tumor burden, status post bronchoscopy and biopsy. 3. Anemia, normocytic anemia of chronic disease. 4. Increased platelets. 5. Hyponatremia. 6. Hypertension. 7. Increased random blood sugar. 8. History of congestive heart failure, ejection fraction unknown. 9. History of chronic obstructive pulmonary disease. 10.History of myocardial infarction. 11.History of chronic low back pain. 12.History of peripheral vascular disease with bilateral lower leg cellulitis. 13.History of MRSA. 14.History of coronary artery disease, stent. RECOMMENDATIONS AND DISCUSSION: I recommend to continue current medications, continue symptomatic treatment. Continue with antibiotics. Continue steroids. Continue current medications. Await biopsy reports. Otherwise also Hematology/Oncology and Radiation Therapy evaluation. We will address the medication. Will increase the dose of Coreg and will continue to monitor. Further recommendations to follow. Will add Norvasc to the current regimen. MMODL / IJN: [id number] /
[2020-04-25] MEDS: oxyCODONE-APAP 10-325MG 1 EACH TAB PO PRN ×3 (00:24→15:36)
[2020-04-25] MEDS: TEMAZEPAM 15 MG CAP PO PRN (00:24)
[2020-04-25] MEDS: HYDROmorphone 1 MG/ML 1 ML SYRINGE IVP PRN ×2 (05:08→13:15)
[2020-04-25] MEDS: methylPREDNISolone SOD SUCCI 125 MG/2 ML VIAL IV SCH ×2 (05:10→13:13)
[2020-04-25] MEDS ORDERED: carvediloL 12.5 MG TAB PO SCH (07:30)
[2020-04-25] MEDS: FORMOTEROL FUMARATE 20 MCG/2 ML NEBU INHALATION SCH (07:35)
[2020-04-25] MEDS: BUDESONIDE 1 MG/2 ML NEBU INHALATION SCH (07:35)
[2020-04-25] MEDS: IPRATROPIUM-ALBUTEROL 3 ML NEB INHALATION SCH ×3 (07:35→16:25)
[2020-04-25 07:52] LABS: Basophils % (A) 0 %; Eosinophils % (A) 0 %; HCT 36.5 % (39.0-53.0); HGB 11.4 gm/dL (13.0-17.5); Hypochromasia Slight; Lymphocytes # (A) 0.3 k/uL (1.0-4.8); Lymphocytes % (A) 2 %; MCH 26.6 pg (25.0-35.0); MCHC 31.1 g/dL (31.0-37.0); MCV 85.5 fL (80.0-100.0); Mean Platelet Volume 6.2; Monocytes # (A) 0.3 k/uL (0-1.0); Monocytes % (A) 2 %; Neutrophils # (A) 12.4 k/uL (1.3-7.7); Neutrophils % (A) 95 %; Platelet Count 539 k/uL (150-450); RBC 4.27 m/uL (4.30-5.90); RDW 15.3 % (11.5-15.5)
[2020-04-25 08:07] LABS: Glucose,Whole Blood 137 mg/dL (75-99)
[2020-04-25] MEDS: MULTIVITAMINS, THERA 1 EACH TAB PO SCH (08:32)
[2020-04-25] MEDS: HEPARIN SODIUM,PORCINE 5,000 UNIT/ML 1 ML VIAL SQ SCH (08:33)
[2020-04-25] MEDS: PANTOPRAZOLE 40 MG TABLET PO SCH (08:33)
[2020-04-25] MEDS: lisinopriL 20 MG TAB PO SCH (08:33)
[2020-04-25] MEDS: CLOPIDOGREL 75 MG TAB PO SCH (08:33)
[2020-04-25] MEDS: ASPIRIN 81 MG PO SCH (08:33)
[2020-04-25] MEDS: FUROSEMIDE 20 MG TAB PO SCH (08:33)
[2020-04-25] MEDS: amLODIPine 5 MG TAB PO SCH (08:33)
[2020-04-25] MEDS: INSULIN ASPART (NovoLOG) 100 UNIT/ML VIAL SQ SCH ×3 (08:35→13:14)
[2020-04-25] MEDS: methocarbamoL 500 MG TAB PO SCH (08:35)
[2020-04-25] MEDS: POTASSIUM CHLORIDE ER 20 MEQ TAB.ER PO SCH (08:35)
[2020-04-25 08:57] VITALS: BP 168/86; TEMP 98.7
[2020-04-25 09:47] LABS: African American GFR (CKD) 119.7 (60.0-200.0); Calcium 9.4 mg/dL (8.7-10.3); Non-African American GFR(CKD) 103.3 (60.0-200.0); Potassium 4.5 mmol/L (3.5-5.5)
[2020-04-25 11:42] VITALS: PULSE 84
[2020-04-25 12:01] LABS: Glucose,Whole Blood 138 mg/dL (75-99)
--- NOTE | 2020-04-25 12:28 | P.CONS ---
History of Present Illness - Reason for Consult Consult date: 04/25/20 Lung Mass and Mediastinal Adenopathy - Chief Complaint Dyspnea and shortness of breath - History of Present Illness Mr Matias is a 69 years old with known history of COPD , chronic CHF, long time smoking. Admitted to [facility] for dyspnea, pneumonia ,and exacerbation of COPD. The patient has not shown any improvement after antibiotics, steroid, and breathing treatments, CT of the chest showed suspicious lesion in the lung with mediastinal lymphadenopathy. The patient was transferred to [facility] at [place] for further workup and evaluation. Bronchoscopy was done in 04/19/[address] Cordero , it was found a fairly large tumor involving the sera , it was a cauliflower-shaped extending through the sera within the right side more than the left site, it was difficult to visualize the bronchus intermedius and right lower lobe because they are occluded by the large sera tumor , biopsies were taken from the tumor, the results are still pending. The presentation and the findings in the images was suggested a suspicious lung cancer, staging workup was started with MRI of the brain which was negative for metastasis ,a Bone scan was negative for osseous metastatic disease, and CT of the abdomen and pelvis was negative for distant metastasis disease . Today Mr. Matias is doing well, denies shortness of breath. He denies headache, nausea, and vomiting. Review of Systems All systems: negative Constitutional: Denies chills, Denies fever Eyes: denies blurred vision, denies pain Ears, nose, mouth and throat: Denies headache, Denies sore throat Cardiovascular: Denies chest pain, Denies shortness of breath Gastrointestinal: Reports as per HPI Genitourinary: Reports as per HPI Musculoskeletal: Reports as per HPI Integumentary: Reports as per HPI Psychiatric: Reports as per HPI Endocrine: Reports as per HPI Hematologic/Lymphatic: Reports as per HPI Allergic/Immunologic: Reports as per HPI Past Medical History Past Medical History: Chest Pain / Angina, Heart Failure, COPD, Hypertension, Myocardial Infarction ([place]), Skin Disorder Additional Past Medical History / Comment(s): chronic back pain, [place] spring 2015; pt has history of PVD with LLE cellulitis, states he had vascular surgery to improve healing Last Myocardial Infarction Date:: 2015 History of Any Multi-Drug Resistant Organisms: MRSA Year Discovered:: 06/25/17 MDRO Source:: LEFT LEG Past Surgical History: Heart Catheterization With Stent, Orthopedic Surgery Additional Past Surgical History / Comment(s): left femur ORIF 40 years ago, left leg bypass; two stents placed in November 2019 Past Anesthesia/Blood Transfusion Reactions: No Reported Reaction Date of Last Stent Placement:: November 2019 Past Psychological History: No Psychological Hx Reported Smoking Status: Former smoker Past Alcohol Use History: Heavy Additional Past Alcohol Use History / Comment(s): Drinks about two alcoholic drinks a day Past Drug Use History: None Reported - Past Family History Father Additional Family Medical History / Comment(s): lung cancer Brother(s) Additional Family Medical History / Comment(s): lung cancer Medications and Allergies Home Medications Medication Instructions Recorded Confirmed Type Aspirin [Adult Low Dose Aspirin EC] 81 mg PO DAILY 11/11/17 04/20/20 History Clopidogrel [Plavix] 75 mg PO DAILY 11/11/17 04/20/20 History Multivitamin [Men's Multi-Vitamin] 1 tab PO DAILY 11/11/17 04/20/20 History Black Elderberry 1000mg 1,000 mg PO TID 04/20/20 04/20/20 History Fluticasone/Salmeterol [Advair 1 puff INHALATION RT-BID 04/20/20 04/20/20 History 500-50 Diskus] Furosemide [Lasix] 20 mg PO DAILY 04/20/20 04/20/20 History Phenylephrine HCl [Sudafed PE] 10 mg PO Q4H PRN 04/20/20 04/20/20 History Potassium Chloride [Klor-Con 20] 20 meq PO DAILY 04/20/20 04/20/20 History lisinopriL [Zestril] 20 mg PO DAILY 04/20/20 04/20/20 History oxyCODONE-APAP 10-325MG [Percocet 1 tab PO TID 04/20/20 04/20/20 History 10-325 mg] ALPRAZolam [Xanax] 0.25 mg PO QID PRN #12 tab 04/25/20 Rx Azithromycin [Zithromax] 500 mg PO DAILY@1600 5 Days #5 tab 04/25/20 Rx Cefuroxime Axetil [Ceftin] 500 mg PO BID 5 Days #10 tab 04/25/20 Rx Formoterol Fumarate [Perforomist] 20 mcg INHALATION RT-BID 30 Days 04/25/20 Rx #30 nebu Ipratropium-Albuterol Nebulize 3 ml INHALATION RT-QID 30 Days 04/25/20 Rx [Duoneb 0.5 mg-3 mg/3 ml Soln] #120 ml Ipratropium-Albuterol Nebulize 3 ml INHALATION RT-TID PRN ml 04/25/20 Rx [Duoneb 0.5 mg-3 mg/3 ml Soln] Pantoprazole [Protonix] 40 mg PO DAILY 30 Days #30 04/25/20 Rx tablet. amLODIPine [Norvasc] 5 mg PO DAILY 30 Days #30 tab 04/25/20 Rx carvediloL [Coreg*] 12.5 mg PO BID-W/MEALS 30 Days #60 04/25/20 Rx tab methocarbamoL [Robaxin] 500 mg PO TID #12 tab 04/25/20 Rx predniSONE 10 mg PO DIRECTED #30 tab 04/25/20 Rx Allergies Allergy/AdvReac Type Severity Reaction Status Date / Time No Known Allergies Allergy Verified 04/20/20 08:13 Physical Exam Vitals: Vital Signs Temp Pulse Pulse Resp BP Pulse Ox 04/25/20 11:29 85 04/25/20 08:35 98.7 F 86 18 168/86 93 L 04/25/20 07:53 82 04/25/20 07:45 81 04/25/20 07:35 83 93 L 04/25/20 06:19 98.0 F 77 18 166/85 94 L 04/24/20 20:35 77 04/24/20 20:27 77 04/24/20 20:13 77 04/24/20 20:00 97.9 F 64 18 147/75 95 04/24/20 19:55 18 04/24/20 13:25 98.2 F 82 18 172/84 97 04/24/20 12:25 78 04/24/20 12:09 78 Intake and Output 04/24/20 04/25/20 04/25/20 22:59 06:59 14:59 Intake Total 900 800 Output Total 800 250 Balance 900 0 -250 Intake: Intake, IV Titration 300 Amount Azithromycin 500 mg In 250 Sodium Chloride 0.9% 250 ml @ 250 mls/hr IVPB Q24H [facility] Rx#:[id number] cefTRIAXone 1 gm In 50 Sodium Chloride 0.9% 50 ml @ 100 mls/hr IVPB Q24H [facility] Rx#:[id number] Oral 600 800 Output: Urine 800 250 Other: Voiding Method Toilet Toilet Urinal Urinal # Voids 4 1 # Bowel Movements 1 Weight 85 kg - Constitutional General appearance: average body habitus, cooperative - EENT Eyes: abnormal pupil, EOMI, PERRLA - Neck Neck: no lymphadenopathy - Respiratory Respiratory: right: diminished, rales - Cardiovascular Rhythm: regular - Gastrointestinal General gastrointestinal: normal bowel sounds - Integumentary Integumentary: normal, normal turgor - Neurologic Neurologic: CNII-XII intact - Musculoskeletal Musculoskeletal: gait normal, strength equal bilaterally - Psychiatric Psychiatric: A&O x's 3, appropriate affect, intact judgment & insight Results CBC & Chem 7: 04/25/20 06:28 04/25/20 06:28 Labs: Abnormal Lab Results - Last 24 Hours (Table) 04/24/20 04/24/20 04/24/20 Range/Units 11:57 17:22 20:13 WBC (3.8-10.6) k/uL RBC (4.30-5.90) m/uL Hgb (13.0-17.5) gm/dL Hct (39.0-53.0) % Plt Count (150-450) k/uL Neutrophils # (1.3-7.7) k/uL Lymphocytes # (1.0-4.8) k/uL Carbon Dioxide (21.6-31.8) mmol/L BUN/Creatinine Ratio (12.00-20.00) Ratio Glucose (70-110) mg/dL POC Glucose (mg/dL) 167 H 147 H 228 H (75-99) mg/dL 04/25/20 04/25/20 04/25/20 Range/Units 06:28 06:28 08:06 WBC 13.0 H (3.8-10.6) k/uL RBC 4.27 L (4.30-5.90) m/uL Hgb 11.4 L (13.0-17.5) gm/dL Hct 36.5 L (39.0-53.0) % Plt Count 539 H (150-450) k/uL Neutrophils # 12.4 H (1.3-7.7) k/uL Lymphocytes # 0.3 L (1.0-4.8) k/uL Carbon Dioxide 34.0 H (21.6-31.8) mmol/L BUN/Creatinine Ratio 45.00 H (12.00-20.00) Ratio Glucose 154 H (70-110) mg/dL POC Glucose (mg/dL) 137 H (75-99) mg/dL Assessment and Plan Assessment: Highly suspicious Locally extensive lung cancer involving the middle and lower right lung and mediastinal adenopathy, with complete obstruction of the bronchus intermedius and right lower lobe. Waiting for the results of the tissue diagnosis. (1) Mass of right lung Current Visit: Yes Status: Acute Code(s): R91.8 - OTHER NONSPECIFIC ABNORMAL FINDING OF LUNG FIELD SNOMED Code(s): 348882903 Plan: Images reviewed, highly suspicious for malignancy with the presentation of lung tumor and mediastinal lymphadenopathy, waiting for tissue diagnosis to finalize our recommendation. If the patient has lung cancer as a primary cancer , he would be staged as IIIA versus IIIB, he would get the benefits of concurrent chemoradiation versus chemotherapy to be followed by radiation. Suggesting to have a PET scan for staging workup as well.
[2020-04-25] MEDS ORDERED: AZITHROMYCIN 500 MG TAB PO SCH (16:00)
--- NOTE | 2020-04-25 16:41 | P.PN ---
Subjective Progress Note Date: 04/25/20 Principal diagnosis: Dyspnea, lung mass, abnormal chest x-ray/CT 69-year-old white male patient, chronic smoker, recently quit 2 weeks ago, with known history of COPD, chronic CHF with unknown EF, history of [place], coronary artery disease with previous stenting, PVD with previous intervention, chronic back pain who presented to [facility] for worsening dyspnea days prior to presentation. Patient was recently hospitalized from 04/11/2020 through 04/13/2020 at [facility] for pneumonia, and he was on 7 day course of oral Levaquin, however his symptoms progressed, he feels more short of breath, he complains of lack of energy, he has a semi-productive congested cough. He was tested for COVID [address] [facility], and was found to be negative. Patient was started on antibiotics, IV steroids, breathing treatments. Blood cultures 2 were obtained, chest x-ray showed mild patchy infiltrate in the lower lung rushing and more on the right side. CTA chest was completed at [place] to rule out PE and was negative for PE however it did show bilateral pneumonia, massive mediastinal and right bronchial adenopathy suggestive of tumor, possibly related to lymphoma or primary lung malignancy. There was of lung mass in the anterior right middle lobe suspicious for tumor, there was encasement of the right lower lobe pulmonary artery with narrowing of the vessel. Patient was transferred to the [facility] for further evaluation and treatment for pneumonia and new finding of a lung mass. His blood work here showed a white blood cell, 7.1, hemoglobin is 11.7, sodium is 133, the rest of electrolytes and renal profile were unremarkable, patient admitted to losing weight, and feeling weak, in addition he is quite bronchos pastic, and his COPD is active. On 04/22/2020 patient seen in follow-up prior to his bronchoscopy in the endoscopy suite, he is on room air, pulse ox of 95%, hemodynamically stable, afebrile. Had no acute issues overnight. Remains on antibiotics in the form of Rocephin and azithromycin, he is on IV steroids, bronchodilators, patient has been scheduled for bronchoscopy with BAL and biopsies of the right lung mass today. On 04/25/2020 patient seen in follow-up on medical surgical floor, he sitting up in bed, in no acute distress, he is on room air, with pulse ox of 93%, his been afebrile, hemodynamically has been stable, lung sounds are positive for some scattered wheezes, but overall his breathing significantly improved, patient is status post bronchoscopy with biopsies of the carinal tumor, multiple Castellon needle aspirations and core biopsy with awaiting needle, washings and lavage of the area of the tumor and the sera. He continues on antibiotics in the form of azithromycin and Rocephin, IV steroids and breathing treatments, he has had no acute events overnight. The biopsy results are still pending at this time. Objective - Vital Signs Vital signs: Vital Signs Temp 98.7 F 04/25/20 08:35 Pulse 84 04/25/20 11:41 Resp 18 04/25/20 08:35 BP 168/86 04/25/20 08:35 Pulse Ox 93 L 04/25/20 08:35 Intake & Output 04/24/20 04/25/20 04/25/20 18:59 06:59 18:59 Intake Total 900 800 Output Total 800 250 Balance 900 0 -250 Weight 85 kg Intake: Intake, IV Titration 300 Amount Azithromycin 500 mg In 250 Sodium Chloride 0.9% 250 ml @ 250 mls/hr IVPB Q24H MARAL Rx#:[id number] cefTRIAXone 1 gm In 50 Sodium Chloride 0.9% 50 ml @ 100 mls/hr IVPB Q24H MARAL Rx#:[id number] Oral 600 800 Output: Urine 800 250 Other: Voiding Method Toilet Toilet Toilet Urinal Urinal Urinal # Voids 4 1 # Bowel Movements 1 - Exam GENERAL EXAM: Alert, pleasant, 69-year-old white male, on 4 L of oxygen with pulse ox of 100% comfortable in no apparent distress. HEAD: Normocephalic/atraumatic. EYES: Normal reaction of pupils, equal size. Conjunctiva pink, sclera white. NOSE: Clear with pink turbinates. THROAT: No erythema or exudates. NECK: No masses, no JVD, no thyroid enlargement, no adenopathy. CHEST: No chest wall deformity. Symmetrical expansion. LUNGS: Equal air entry with diffuse wheezes CVS: Regular rate and rhythm, normal S1 and S2, no gallops, no murmurs, no rubs ABDOMEN: Soft, nontender. No hepatosplenomegaly, normal bowel sounds, no guarding or rigidity. EXTREMITIES: No clubbing, no edema, no cyanosis, 2+ pulses and upper and lower extremities. MUSCULOSKELETAL: Muscle strength and tone normal. SPINE: No scoliosis or deformity SKIN: No rashes CENTRAL NERVOUS SYSTEM: Alert and oriented -3. No focal deficits, tone is norm al in all 4 extremities. PSYCHIATRIC: Alert and oriented -3. Appropriate affect. Intact judgment and insight. - Labs CBC & Chem 7: 04/25/20 06:28 04/25/20 06:28 Labs: Abnormal Lab Results - Last 24 Hours (Table) 04/24/20 04/24/20 04/25/20 Range/Units 17:22 20:13 06:28 WBC 13.0 H (3.8-10.6) k/uL RBC 4.27 L (4.30-5.90) m/uL Hgb 11.4 L (13.0-17.5) gm/dL Hct 36.5 L (39.0-53.0) % Plt Count 539 H (150-450) k/uL Neutrophils # 12.4 H (1.3-7.7) k/uL Lymphocytes # 0.3 L (1.0-4.8) k/uL Carbon Dioxide (21.6-31.8) mmol/L BUN/Creatinine Ratio (12.00-20.00) Ratio Glucose (70-110) mg/dL POC Glucose (mg/dL) 147 H 228 H (75-99) mg/dL 04/25/20 04/25/20 04/25/20 Range/Units 06:28 08:06 12:00 WBC (3.8-10.6) k/uL RBC (4.30-5.90) m/uL Hgb (13.0-17.5) gm/dL Hct (39.0-53.0) % Plt Count (150-450) k/uL Neutrophils # (1.3-7.7) k/uL Lymphocytes # (1.0-4.8) k/uL Carbon Dioxide 34.0 H (21.6-31.8) mmol/L BUN/Creatinine Ratio 45.00 H (12.00-20.00) Ratio Glucose 154 H (70-110) mg/dL POC Glucose (mg/dL) 137 H 138 H (75-99) mg/dL Microbiology - Last 24 Hours (Table) 04/22/20 12:00 Gram Stain - Final Bronchoalviolar Lavage - Right Bronchial Washings Culture - Final Corynebacter pseudotuberculosi Assessment and Plan Plan: Assessment: #1. Acute hypoxic respiratory failure related to bilateral pneumonia, likely community acquired, ruled out for COVID 19 at [facility] #2. Right lung pulmonary mass with massive mediastinal and right bronchial adenopathy, new finding, could be related to underlying lymphoma or primary lung malignancy, status post bronchoscopy with endobronchial wing needle aspiration biopsy brushings and washings of the area of the tumor, and biopsy results are still pending at this time #3. Acute exacerbation of COPD #4. Unintentional 25 pound weight loss since the summer of this year #5. History of COPD #6. Hypertension #7. Chronic congestive heart failure with unknown EF #8. Previous history of myocardial infarction #9. Coronary artery disease with previous stenting #10. History of PVD with previous intervention #11. Daily EtOH use #12. Previous history of pneumonia #13. History of smoking, in remission for last 2 weeks #14. Family history of lung cancer in his father Plan: Clinically patient remains stable, breathing easier, from pulmonary perspective he can be considered for discharge home today with outpatient follow-up with Dr. Cordero in the office within 7-10 days for follow-up on the biopsy results. He can go home on the prednisone taper, he can finish outpatient course of oral antibiotics, he has nebulized treatments at home. No oxygen needed as the patient did not qualify for oxygen, no acute events overnight, his been afebrile. I performed a history & physical examination of the patient and discussed their management with my nurse practitioner, Lexii Gilmore. I reviewed the nurse practitioner's note and agree with the documented findings and plan of care. Lung sounds are positive for diffuse wheezes throughout the lung rsuhing. The findings and the impression was discussed with the patient. I attest to the documentation by the nurse practitioner. Time with Patient: Less than 30
--- NOTE | 2020-04-25 18:58 | P.PN ---
Subjective Progress Note Date: 04/25/20 Principal diagnosis: New Lung Mass Path still pending, awaiting patient to be seen by radiation onc Objective - Vital Signs Vital signs: Vital Signs Temp 98.7 F 04/25/20 08:35 Pulse 84 04/25/20 11:41 Resp 18 04/25/20 08:35 BP 168/86 04/25/20 08:35 Pulse Ox 93 L 04/25/20 08:35 Intake & Output 04/24/20 04/25/20 04/25/20 18:59 06:59 18:59 Intake Total 900 800 Output Total 800 250 Balance 900 0 -250 Weight 85 kg Intake: Intake, IV Titration 300 Amount Azithromycin 500 mg In 250 Sodium Chloride 0.9% 250 ml @ 250 mls/hr IVPB Q24H MARAL Rx#:[id number] cefTRIAXone 1 gm In 50 Sodium Chloride 0.9% 50 ml @ 100 mls/hr IVPB Q24H MARAL Rx#:[id number] Oral 600 800 Output: Urine 800 250 Other: Voiding Method Toilet Toilet Toilet Urinal Urinal Urinal # Voids 4 1 # Bowel Movements 1 - Exam - Constitutional General appearance: no acute distress - EENT Eyes: EOMI, PERRLA ENT: hearing grossly normal, normal oropharynx - Neck Neck: no lymphadenopathy Thyroid: bilateral: normal size - Respiratory Respiratory: right: diminished and diffuse expiratory wheezing - Cardiovascular Rhythm: regular Heart sounds: normal: S1, S2 - Gastrointestinal General gastrointestinal: normal bowel sounds, soft - Integumentary Integumentary: normal - Neurologic Neurologic: CNII-XII intact - Musculoskeletal Musculoskeletal: generalized weakness, strength equal bilaterally - Psychiatric Psychiatric: A&O x's 3, appropriate affect - Labs CBC & Chem 7: 04/25/20 06:28 04/25/20 06:28 Labs: Abnormal Lab Results - Last 24 Hours (Table) 04/24/20 04/25/20 04/25/20 Range/Units 20:13 06:28 06:28 WBC 13.0 H (3.8-10.6) k/uL RBC 4.27 L (4.30-5.90) m/uL Hgb 11.4 L (13.0-17.5) gm/dL Hct 36.5 L (39.0-53.0) % Plt Count 539 H (150-450) k/uL Neutrophils # 12.4 H (1.3-7.7) k/uL Lymphocytes # 0.3 L (1.0-4.8) k/uL Carbon Dioxide 34.0 H (21.6-31.8) mmol/L BUN/Creatinine Ratio 45.00 H (12.00-20.00) Ratio Glucose 154 H (70-110) mg/dL POC Glucose (mg/dL) 228 H (75-99) mg/dL 04/25/20 04/25/20 Range/Units 08:06 12:00 WBC (3.8-10.6) k/uL RBC (4.30-5.90) m/uL Hgb (13.0-17.5) gm/dL Hct (39.0-53.0) % Plt Count (150-450) k/uL Neutrophils # (1.3-7.7) k/uL Lymphocytes # (1.0-4.8) k/uL Carbon Dioxide (21.6-31.8) mmol/L BUN/Creatinine Ratio (12.00-20.00) Ratio Glucose (70-110) mg/dL POC Glucose (mg/dL) 137 H 138 H (75-99) mg/dL Microbiology - Last 24 Hours (Table) 04/22/20 12:00 Gram Stain - Final Bronchoalviolar Lavage - Right Bronchial Washings Culture - Final Corynebacter pseudotuberculosi Assessment and Plan Plan: Chest x-ray: report reviewed CT scan - chest: report reviewed Assessment and Plan Mass of right lung - New central right lung mass, as well as massive mediastinal adenopathy. - Local picture is highly suspicious for malignancy with involvement of the mediastinal lymph nodes. - Even the patient's history of smoking and the clinical picture, lung primary with mediastinal involvement, or conversely Center lung malignancy with parenchymal metastasis, is the main differential diagnosis. However other primary such as lymphoma are not ruled out. Also consideration to be made with father having primary lung cancer as a lifelong non-smoker. - Status Post Bronch with bx - Await results - MRI Brain, CT abd/Pelvis neg Acute on Chronic Back Pain: - Bone scan negative for metastatic disease - Continue with regimen - Patient to follow with Pain management after discharge as unrelated to malignancy Pneumonia - This is persistent likely due to postobstructive pneumonia . Patient is im proved with steroids and antibiotics. Continue management per pulmonary medicine and admitting service Anxiety/Depression: - Continue Xanax for intermittent use while awaiting pathology results Consult for radiation oncology. Await Path Add PPI with active steroids COntinue Supportive care and emotional support Follow-up in one week to review path and plan treatment options Physician Attest: I have completed the full history and physical and agree with dictation, dictated as a scribe.
--- NOTE | 2020-04-26 16:08 | P.DS ---
Providers Date of admission: 04/19/20 22:00 Expected date of discharge: 04/25/20 Attending physician: Rashad Li MD Consults: 04/20/20 10:12 Consult Physician Routine Consulting Provider: Ben Paul Consult Reason/Comments: mediastinal mass bronchial adenopathy Do you want consulting provider notified?: Yes Consult Physician Routine Consulting Provider: Rashad Ignacio Consult Reason/Comments: mediastinal mass, wt loss Do you want consulting provider notified?: Yes 04/22/20 13:42 Consult Physician Routine Consulting Provider: Garry Ernst Consult Reason/Comments: right lung mass Do you want consulting provider notified?: Yes 04/22/20 13:43 Consult Physician Routine Consulting Provider: Rashad Ignacio Consult Reason/Comments: right lung mass Do you want consulting provider notified?: Yes Primary care physician: Chris Bellamy [facility] Course: Final diagnosis Chronic obstructive pulmonary disease acute exacerbation with possible acute bibasilar pneumonia possibly gram-negative Right hilar mass and lung cancer possibly with carinal tumor with high tumor burden, status post bronchoscopy and biopsy anemia, normocytic anemia of chronic disease increased platelets Hyponatremia Increased random blood sugar History of congestive heart failure, ejection fraction unknown history of chronic obstructive pulmonary disease hypertension history of myocardial infarction History of chronic low back pain history of peripheral vascular disease with bilateral lower leg cellulitis History of MRSA history of coronary artery disease, stent Discharge disposition Patient is being discharged in a stable condition with guarded prognosis to home. Patient will follow-up with Dr. Bellamy in the outpatient setting upon discharge. Patient also instructed to follow-up with radiation oncology along with oncology and pulmonary in the outpatient setting. Patient instructed to continue with oral antibiotics in the form of Ceftin 500 mg twice daily for the next 5 days along with a prednisone taper and oral Zithromax 500 mg daily for the next 5 days to complete the course. Patient to follow-up with oncology for biopsy results along with pulmonary in the outpatient setting. Total time taken is greater than 35 minutes. History of present illness This is a 69-year-old male who was recently admitted with COPD acute exacerbation along with bibasilar pneumonia and right hilar lung mass and was being closely monitored. Patient was followed by pulmonary and underwent bronchoscopy with lung biopsy and oncology and radiation oncology was consulted. Patient had a bone scan during hospitalization which did not show any acute abnormality indicative metastasis and currently awaiting final biopsy reports. MRI of the Brain was done showing no acute abnormalities. Patient is very anxious and would like to go home today. Patient will be following up with radiation oncology, oncology, and pulmonary in the outpatient setting once biopsy results are obtained to determine plan of care and treatment options. Currently no reports of chest pain, or worsening shortness of breath, or palpitations. Patient is afebrile. No reports of nausea or vomiting and patient is tolerating diet. Patient will be discharged home today. Guarded prognosis On exam vital signs are stable. Temp is 98.7F, pulse is 86, respirations are 18, blood pressure is 168/86, oxygen saturation is 93% on room air. Cardio S1, S2 are muffled. Respiratory system shows diminished breath sounds at the bases with no wheezing or rhonchi noted. Abdomen is soft and and nontender. Nervous system shows no focal deficits. Please refer to medication reconciliation sheet for a list of medications. Patient Condition at Discharge: Fair Plan - Discharge Summary New Discharge Prescriptions: New Cefuroxime Axetil [Ceftin] 500 mg PO BID 5 Days #10 tab carvediloL [Coreg*] 12.5 mg PO BID-W/MEALS 30 Days #60 tab Ipratropium-Albuterol Nebulize [Duoneb 0.5 mg-3 mg/3 ml Soln] 3 ml INHALATION RT-QID 30 Days #120 ml Ipratropium-Albuterol Nebulize [Duoneb 0.5 mg-3 mg/3 ml Soln] 3 ml INHALATION RT-TID PRN ml PRN Reason: Shortness Of Breath Or Wheezing amLODIPine [Norvasc] 5 mg PO DAILY 30 Days #30 tab Formoterol Fumarate [Perforomist] 20 mcg INHALATION RT-BID 30 Days #30 nebu predniSONE 10 mg PO DIRECTED #30 tab Pantoprazole [Protonix] 40 mg PO DAILY 30 Days #30 tablet. methocarbamoL [Robaxin] 500 mg PO TID #12 tab ALPRAZolam [Xanax] 0.25 mg PO QID PRN #12 tab PRN Reason: Anxiety Azithromycin [Zithromax] 500 mg PO DAILY@1600 5 Days #5 tab Formoterol Fumarate [Perforomist] 20 mcg INHALATION BID 30 Days #30 ml Continue Clopidogrel [Plavix] 75 mg PO DAILY Multivitamin [Men's Multi-Vitamin] 1 tab PO DAILY Aspirin [Adult Low Dose Aspirin EC] 81 mg PO DAILY oxyCODONE-APAP 10-325MG [Percocet 10-325 mg] 1 tab PO TID Potassium Chloride [Klor-Con 20] 20 meq PO DAILY Furosemide [Lasix] 20 mg PO DAILY lisinopriL [Zestril] 20 mg PO DAILY Fluticasone/Salmeterol [Advair 500-50 Diskus] 1 puff INHALATION RT-BID Black Elderberry 1000mg 1,000 mg PO TID Phenylephrine HCl [Sudafed PE] 10 mg PO Q4H PRN PRN Reason: Congestion Discontinued Levofloxacin [Levaquin] 500 mg PO DAILY Carvedilol [Coreg] 3.125 mg PO BID Discharge Medication List Aspirin [Adult Low Dose Aspirin EC] 81 mg PO DAILY 11/11/17 [History] Clopidogrel [Plavix] 75 mg PO DAILY 11/11/17 [History] Multivitamin [Men's Multi-Vitamin] 1 tab PO DAILY 11/11/17 [History] Black Elderberry 1000mg 1,000 mg PO TID 04/20/20 [History] Fluticasone/Salmeterol [Advair 500-50 Diskus] 1 puff INHALATION RT-BID 04/20/20 [History] Furosemide [Lasix] 20 mg PO DAILY 04/20/20 [History] Phenylephrine HCl [Sudafed PE] 10 mg PO Q4H PRN 04/20/20 [History] Potassium Chloride [Klor-Con 20] 20 meq PO DAILY 04/20/20 [History] lisinopriL [Zestril] 20 mg PO DAILY 04/20/20 [History] oxyCODONE-APAP 10-325MG [Percocet 10-325 mg] 1 tab PO TID 04/20/20 [History] ALPRAZolam [Xanax] 0.25 mg PO QID PRN #12 tab 04/25/20 [Rx] Azithromycin [Zithromax] 500 mg PO DAILY@1600 5 Days #5 tab 04/25/20 [Rx] Cefuroxime Axetil [Ceftin] 500 mg PO BID 5 Days #10 tab 04/25/20 [Rx] Formoterol Fumarate [Perforomist] 20 mcg INHALATION BID 30 Days #30 ml 11/30/20 [Rx] Formoterol Fumarate [Perforomist] 20 mcg INHALATION RT-BID 30 Days #30 nebu 04/25/20 [Rx] Ipratropium-Albuterol Nebulize [Duoneb 0.5 mg-3 mg/3 ml Soln] 3 ml INHALATION RT-QID 30 Days #120 ml 04/25/20 [Rx] Ipratropium-Albuterol Nebulize [Duoneb 0.5 mg-3 mg/3 ml Soln] 3 ml INHALATION RT-TID PRN ml 04/25/20 [Rx] Pantoprazole [Protonix] 40 mg PO DAILY 30 Days #30 tablet. 04/25/20 [Rx] amLODIPine [Norvasc] 5 mg PO DAILY 30 Days #30 tab 04/25/20 [Rx] carvediloL [Coreg*] 12.5 mg PO BID-W/MEALS 30 Days #60 tab 04/25/20 [Rx] methocarbamoL [Robaxin] 500 mg PO TID #12 tab 04/25/20 [Rx] predniSONE 10 mg PO DIRECTED #30 tab 04/25/20 [Rx] Follow up Appointment(s)/Referral(s): Ben Paul MD [STAFF PHYSICIAN] - 05/18/20 2:00 pm (Please feel free to call the office in a week to see if they may have had a cancellation.) Rashad Ignacio MD [STAFF PHYSICIAN] - 1 Week (The office will call you with an appointment time and date) Chris Bellamy MD [Primary Care Provider] - 04/28/20 1:00 pm (You will be seeing Paulette Kodi.) Chepe Robin MD [STAFF PHYSICIAN] - 05/03/20 9:30 am Patient Instructions/Handouts: Cefuroxime (By mouth), Alprazolam (By mouth), Prednisone (By mouth), Azithromycin (By mouth), Methocarbamol (By mouth), Amlodipine (By mouth), Carvedilol (By mouth), Ipratropium/Albuterol (By breathing), Pantoprazole (By mouth), Formoterol (By breathing), Pneumonia (DC) Activity/Diet/Wound Care/Special Instructions: Activity Limited until follow-up Follow-up with primary care provider upon discharge Continue antibiotics until finished Follow up with oncology in one week Continue with breathing treatments Continue prednisone taper Continue Consistent Carbohydrate diet as tolerated Discharge Disposition: HOME SELF-CARE
== END 2020-04-25 16:43 | disposition home or self-care (01) | DRG 177 ==
LOC: 6NMEDSUR 22:00
PROVIDERS: ADMIT Internal Medicine; ATTEND Internal Medicine
PROC: 0BB28ZX Excision of Carina, Via Natural or Artificial Opening Endoscopic, Diagnostic (ICD-10-PCS; principal; 2020-04-22 12:00)
PROC: 0BD28ZX Extraction of Carina, Via Natural or Artificial Opening Endoscopic, Diagnostic (ICD-10-PCS; principal; 2020-04-22 12:00)
PROC: 0B928ZX Drainage of Carina, Via Natural or Artificial Opening Endoscopic, Diagnostic (ICD-10-PCS; principal; 2020-04-22 12:00)
DX: J15.6 Pneumonia due to other Gram-negative bacteria (principal); J96.01 Acute respiratory failure with hypoxia; E87.1 Hypo-osmolality and hyponatremia; J44.0 Chronic obstructive pulmonary disease with (acute) lower respiratory infection; J44.1 Chronic obstructive pulmonary disease with (acute) exacerbation; L03.116 Cellulitis of left lower limb; C34.01 Malignant neoplasm of right main bronchus; C34.31 Malignant neoplasm of lower lobe, right bronchus or lung; Z87.891 Personal history of nicotine dependence; D63.8 Anemia in other chronic diseases classified elsewhere; F32.9 Major depressive disorder, single episode, unspecified; F41.9 Anxiety disorder, unspecified; G89.29 Other chronic pain; M54.5 Low back pain; I11.0 Hypertensive heart disease with heart failure; I25.10 Atherosclerotic heart disease of native coronary artery without angina pectoris; I25.2 Old myocardial infarction; I50.9 Heart failure, unspecified; I73.9 Peripheral vascular disease, unspecified; J98.09 Other diseases of bronchus, not elsewhere classified; Z79.02 Long term (current) use of antithrombotics/antiplatelets; Z79.82 Long term (current) use of aspirin; Z79.899 Other long term (current) drug therapy; Z80.1 Family history of malignant neoplasm of trachea, bronchus and lung; Z86.14 Personal history of Methicillin resistant Staphylococcus aureus infection; Z87.01 Personal history of pneumonia (recurrent); Z95.5 Presence of coronary angioplasty implant and graft; Z79.891 Long term (current) use of opiate analgesic
CPT/HCPCS: 31624; 31625; 31633; 70553; 71045; 74177; 78306; 80048; 80053; 83735; 85025; 85652; 86140; 87070; 87205; 88108; 88173; 88305; 94640; 94760

== ENCOUNTER → 2020-04-30 | Outpatient (CLI) | payer MEDICARE, OTHER ==
--- NOTE | 2020-05-01 12:08 | PE ---
Nuclear medicine PET/CT HISTORY: Lung carcinoma right, initial Patient received 13.4 mCi F-18 FDG intravenously in delayed scanning was performed from the skull bas e to the mid thighs. Localization and attenuation correction CT scan was performed. Correlation to prior CT scan 04/21/2020, bone scan 04/24/2020 Chest and neck: Retrograde vertebral pretracheal adenopathy, right hilar adenopathy, subcarinal adeno jayro and associated uptake is present. Groundglass opacities present throughout much of the right up per lobe which shows associated uptake and some patchy areas. Right middle lobe also shows some nodul arity, only mild uptake present in one of the peripheral nodules. There is no pleural or pericardial effusion. No supraclavicular or cervical adenopathy or uptake. ABDOMEN: There is no evident liver mass, no adrenal mass or retroperitoneal adenopathy. No suspicious uptake. Anasarca changes are present. Umbilical hernia contains fat. Osseous structures show postop change to the left hip. No suspicious uptake. Lytic lucency within the proximal right humerus does not show uptake. IMPRESSION: Findings consistent with patient's history of lung carcinoma as described.
== END | disposition home or self-care (01) ==
LOC: RADPETMAIN 09:44
PROVIDERS: ATTEND Internal Medicine Hematology & Oncology
DX: C34.11 Malignant neoplasm of upper lobe, right bronchus or lung (principal); Z85.118 Personal history of other malignant neoplasm of bronchus and lung
CPT/HCPCS: 78815; A9552

== ENCOUNTER → 2020-08-09 | Outpatient (CLI) | payer MEDICARE, OTHER ==
[2020-08-09 09:39] LABS: African American GFR (CKD) >90 (>60 ml/min/1.73 sqM); Blood Urea Nitrogen 19 mg/dL (9-20); Non-African American GFR(CKD) >90 (>60 ml/min/1.73 sqM)
--- NOTE | 2020-08-09 12:17 | CT ---
EXAMINATION TYPE: CT ChestAbdPelvis w con DATE OF EXAM: 08/09/2020 COMPARISON: 04/30/2020 HISTORY: 70-year-old male C34.11, Z03.89, Lung CA follow up TECHNIQUE: Contiguous axial scanning of the chest, abdomen, and pelvis performed with IV Contrast, pa tient injected with 100 mL of Isovue 300. Delayed images through the kidneys were obtained. Coronal/s agittal reconstructions performed. CT DLP: 1358.7 mGycm Automated exposure control for dose reduction was used. FINDINGS: CHEST: Heart normal size without pericardial effusion. Scattered LAD and circumflex coronary calcifications are present. Ectatic ascending aorta at 3.7 cm. Bovine configuration to the aortic arch. Residual thickened soft tissue measuring 2.1 cm remains in the lower right paratracheal region decrea sed from 04/30/2020. Residual right hilar density measures 4.0 x 2.0 cm, versus approximately 4.3 x 2. 2 cm, previously. Residual subcarinal soft tissue density measures 2.1 cm versus 3.2 cm, previously. There is improved caliber to the right mainstem bronchus and mild residual peribronchovascular opacit ies within the right upper lobe. Continued volume loss within the right middle lobe. The previous nod ular areas in the right middle lobe have improved. Mild centrilobular emphysema. No pleural effusion. ABDOMEN: No focal liver lesion or biliary ductal dilatation. Portal venous system is patent. Gallbladder, adrenal glands, spleen, pancreas appear within normal limits. There may be a partially annular pancreas. Bilateral renal cortical hypodensities, likely cysts measuring up to 1.6 cm. No dilated small bowel, free fluid, free air. No mesenteric or retroperitoneal lymphadenopathy. Moderate atherosclerotic calcifications distal abdominal aorta and iliac arteries. There is a small to moderate-sized 3.6 cm wide left periumbilical fatty hernia. Moderate stool burden. Very redundant sigmoid colon heading into the right lower quadrant. No pericol onic inflammatory change. PELVIS: Surgical clips in the inguinal regions. Enlarged left inguinal lymph node measuring 2.0 cm short axis is unchanged. Hypermetabolism was not identified on the patient's 04/30/2020 CT. Bladder urine disten ded. Prostate gland measures 3.7 cm wide. No abnormal fluid collection in the pelvis. BONES: An intramedullary nail within the left femoral shaft. Mild degenerative change of both hips. Degenera corey levoconvex scoliosis of the lumbar spine. IMPRESSION: 1. PARTIAL TREATMENT RESPONSE. RESIDUAL SOFT TISSUE THICKENING/LYMPHADENOPATHY REMAINS IN THE LOWER R IGHT PARATRACHEAL, RIGHT HILAR, AND SUBCARINAL REGIONS THOUGH DECREASED IN SIZE. EXTRINSIC MASS EFFEC T HAS IMPROVED WITH IMPROVING CALIBER TO THE RIGHT MAINSTEM BRONCHUS. 2. CONTINUED VOLUME LOSS IN THE RIGHT MIDDLE LOBE. SOME PERIBRONCHOVASCULAR GROUNDGLASS IN THE RIGHT UPPER LOBE COULD REPRESENT POSTTREATMENT CHANGE. 3. ENLARGED 2 CM LEFT INGUINAL LYMPH NODE REMAINS UNCHANGED. THIS WAS NOT HYPERMETABOLIC ON THE PATIE NT'S 04/30/2020 PET/CT.
== END ==
LOC: RADCTMAIN 08:51
PROVIDERS: ATTEND Internal Medicine Hematology & Oncology
DX: C34.11 Malignant neoplasm of upper lobe, right bronchus or lung (principal); R91.8 Other nonspecific abnormal finding of lung field; R59.0 Localized enlarged lymph nodes; Z03.89 Encounter for observation for other suspected diseases and conditions ruled out
CPT/HCPCS: 82565; 84520; 71260; 74177; 36415; Q9967

== ENCOUNTER → 2020-11-10 | Outpatient (CLI) | payer MEDICARE, OTHER ==
[2020-11-10 10:42] LABS: African American GFR (CKD) >90 (>60 ml/min/1.73 sqM); Blood Urea Nitrogen 15 mg/dL (9-20); Non-African American GFR(CKD) >90 (>60 ml/min/1.73 sqM)
--- NOTE | 2020-11-10 13:50 | CT ---
EXAMINATION TYPE: CT ChestAbdPelvis w con DATE OF EXAM: 11/10/2020 COMPARISON: CT 08/09/2020 HISTORY: Lung cancer CT DLP: 1161.9 mGycm Automated exposure control for dose reduction was used. CONTRAST: CT scan of the chest, abdomen and pelvis is performed with Oral Contrast and with IV Contrast, patien t injected with 100 mL of Isovue 300. FINDINGS: Possible retained secretions within the trachea LUNGS: Interval development of a large right pleural effusion, there is abnormal groundglass opacity, air bronchograms present in the perihilar and suprahilar location on the right. The previously ident ified soft tissue mass seen on exam in the right middle lobe is not defined as on prior exam. Bronchi al wall thickening is present on the right. MEDIASTINUM: There are no greater than 1 cm hilar or mediastinal lymph nodes. Small prevascular nodes are again seen, abnormal soft tissue in the retrocaval pretracheal region is not defined and is agai n seen, subcarinal soft tissues also ill-defined and shows a similar appearance. No pericardial effu ilia is seen. AORTA: No significant abnormality is seen. Postop changes are noted within the groins. OTHER: Coronary artery calcifications again noted.. LIVER/GB: No significant abnormality is appreciated. PANCREAS: No significant interval change is seen, normal variant anatomy is suspected. SPLEEN: No significant abnormality is seen. ADRENALS: No significant abnormality is seen. KIDNEYS: Irregular appearance of the right kidney is again seen, there is some associated calcificati ons within the kidneys some of which may be vascular. REPRODUCTIVE ORGANS: No gross interval change seen. BOWEL: No significant abnormality is seen. FREE AIR: No Free Air visible. ASCITES: None seen. RETROPERITONEAL ADENOPATHY: No retroperitoneal adenopathy is seen. LYMPH NODES: No greater than 1 cm abdominal or pelvic lymph nodes are appreciated. URINARY BLADDER: No significant abnormality is seen. PELVIC ADENOPATHY: Unchanged, prominent left inguinal node is again seen. OSSEOUS STRUCTURES: Postop change noted to the left femur, scoliotic curvature, degenerative disc ch desi present. IMPRESSION: There is new right pleural effusion, progression of airspace disease as compared to prior exam within the right lung. Posttreatment changes.
== END | disposition home or self-care (01) ==
LOC: RADCTMAIN 09:08
PROVIDERS: ATTEND Internal Medicine Hematology & Oncology
DX: C34.11 Malignant neoplasm of upper lobe, right bronchus or lung (principal); J90 Pleural effusion, not elsewhere classified
CPT/HCPCS: 82565; 84520; 71260; 74177; 36415; Q9967

== ENCOUNTER 2020-12-08 12:15 | Day surgery (SDC) | payer MEDICARE, OTHER ==
[2020-12-08 12:50] VITALS: RESP 16; TEMP 98.7
[2020-12-08 13:24] LABS: INR 0.9 (<1.2); Mean Platelet Volume 6.7; Platelet Count 227 k/uL (150-450); Prothrombin Time 9.8 sec (9.0-12.0)
[2020-12-08 14:37] VITALS: PULSE 99
[2020-12-08 15:08] VITALS: BP 149/81
--- NOTE | 2020-12-08 15:28 | XR ---
EXAMINATION TYPE: XR chest 1V portable DATE OF EXAM: 12/08/2020 CLINICAL HISTORY: POST THORACENTESIS. TECHNIQUE: Frontal view of the chest. COMPARISON: 04/22/2020 chest x-ray . 11/10/2020 CT chest. FINDINGS: Patient is status post right thoracentesis with small residual right pleural effusion. No pneumothorax. Cardiac silhouette normal. Unchanged right hemithorax volume loss. Perihilar airspace o pacities on the right. Levocurvature of the thoracic spine. Postsurgical change of the bilateral shou lders. IMPRESSION: Small residual right pleural effusion status post right thoracentesis. No pneumothorax.
--- NOTE | 2020-12-08 17:54 | US ---
EXAMINATION TYPE: US thoracentesis DATE OF EXAM: 12/08/2020 COMPARISON: CT chest 11/10/2020 HISTORY: Pleural effusion. History of right lung cancer. TOBACCO PRIZER: Dr. Saida Romero PROCEDURE: The procedure was discussed with the patient. The risks, complications, benefits, and alternatives we re discussed and any questions were answered. Informed consent was obtained. Preprocedure preliminary imaging demonstrated a large right pleural effusion. Maximal barrier technique was utilized. The skin overlying a suitable pocket of fluid of the right ch est was localized and the overlying skin prepped and draped. Lidocaine was used for local anesthesia. Ultrasound was used with sterile technique. A 5FR 7 cm ons-step centesis catheter was advanced into the pleural fluid collection using ultrasound guidance. Approximately 1.2 liter(s) of clear serous fl uid was removed. Catheter was withdrawn and hemostasis achieved. A sterile bandage was applied. Flui d was sent to pathology department for cytology. Postprocedure imaging demonstrated trace residual pleural effusion. There is no immediate complicatio n. The patient was discharged in stable condition without complication. IMPRESSION: 1. Status post ultrasound-guided right thoracentesis, with removal of 1.2 L of clear serous fluid. 2. Postprocedure chest x-ray pending.
[2020-12-08 18:52] LABS: Appearance,BF Cloudy; Nucleated Cells, Body Fluid 900 /uL; RBC, Body Fluid 1100 /uL
[2020-12-08 19:04] LABS: Mononuclear WBC,Body Fluid 81 %; Polynuclear WBC,Body Fluid 14 %; Total Cells Counted,Body Fluid 100
[2020-12-09 05:19] LABS: Total Protein, Body Fluid 3890 mg/dL
[2020-12-09 05:33] LABS: LDH, Body Fluid Source Pleural Fluid
== END 2020-12-08 15:35 | disposition home or self-care (01) ==
LOC: RADPROMAIN 12:15
PROVIDERS: ATTEND Internal Medicine Hematology & Oncology
DX: J90 Pleural effusion, not elsewhere classified (principal)
CPT/HCPCS: 32555; 36415; 71045; 83615; 84157; 85049; 85610; 87070; 87075; 87205; 88108; 88305; 88341; 88342; 89050

== ENCOUNTER 2020-12-21 03:28 | Inpatient (IN) | payer MEDICARE, OTHER ==
[2020-12-21] MEDS ORDERED: HYDROmorphone 1 MG/ML 1 ML SYRINGE IVP STA (06:00)
[2020-12-21] MEDS ORDERED: NALOXONE 0.4 MG/ML 1 ML VIAL IV PRN (08:01)
[2020-12-21] MEDS ORDERED: LORazepam 2 MG/ML INJ IV PRN (08:01)
[2020-12-21] MEDS ORDERED: ONDANSETRON 4 MG/2 ML VIAL IVP PRN (08:01)
--- NOTE | 2020-12-21 08:47 | XR ---
EXAMINATION TYPE: XR chest 1V DATE OF EXAM: 12/21/2020 COMPARISON: 12/08/2020 HISTORY: Shortness of breath TECHNIQUE: Single frontal view of the chest is obtained. FINDINGS: Hyperinflation compatible COPD. There is right-sided consolidation and pleural effusion. P rominence the right perihilar region noted. Diffuse osteopenia with arthropathy of the shoulders. Pos tsurgical changes bilateral shoulder. Heart size enlarged but stable. Interstitium slightly prominent . IMPRESSION: 1. COPD with right-sided infiltrate and pleural effusion. Follow-up to resolution of the right perihi lar region recommended to exclude adenopathy or mass.
[2020-12-21 09:13] LABS: Anisocytosis Slight; HCT 36.7 % (39.0-53.0); HGB 11.9 gm/dL (13.0-17.5); Hypochromasia Slight; MCH 28.5 pg (25.0-35.0); MCHC 32.3 g/dL (31.0-37.0); MCV 88.1 fL (80.0-100.0); Mean Platelet Volume 6.4; Platelet Count 219 k/uL (150-450); RBC 4.17 m/uL (4.30-5.90); RDW 17.1 % (11.5-15.5); WBC 3.9 k/uL (3.8-10.6)
[2020-12-21 09:29] LABS: ALT 13 U/L (4-49); AST 23 U/L (17-59); African American GFR (CKD) >90 (>60 ml/min/1.73 sqM); Albumin 3.5 g/dL (3.5-5.0); Albumin/Globulin Ratio 1.5; Alkaline Phosphatase 126 U/L (38-126); Anion Gap 6 mmol/L; Blood Urea Nitrogen 6 mg/dL (9-20); Calcium 8.8 mg/dL (8.4-10.2); Carbon Dioxide 27 mmol/L (22-30); Chloride 103 mmol/L (98-107); Globulin 2.4 g/dL; Glucose 115 mg/dL (74-99); Magnesium 1.8 mg/dL (1.6-2.3); Non-African American GFR(CKD) >90 (>60 ml/min/1.73 sqM); Potassium 4.2 mmol/L (3.5-5.1); Sodium 136 mmol/L (137-145); Total Bilirubin 0.3 mg/dL (0.2-1.3); Total Protein 5.9 g/dL (6.3-8.2)
[2020-12-21 09:33] LABS: INR 0.9 (<1.2); Prothrombin Time 9.6 sec (9.0-12.0)
[2020-12-21] MEDS ORDERED: methylPREDNISolone SOD SUCCI 125 MG/2 ML VIAL IV STA (09:55)
[2020-12-21] MEDS: HYDROmorphone 1 MG/ML 1 ML SYRINGE IVP PRN ×3 (10:18→17:44)
[2020-12-21 11:24] LABS: Eosinophils # (M) 0.04 k/uL (0-0.7); Lymphocytes # (M) 0.31 k/uL (1.0-4.8); Monocytes # (M) 0.47 k/uL (0-1.0); Neutrophils # (M) 3.08 k/uL (1.3-7.7); Neutrophils % (M) 79 %; Nucleated Red Blood Cells 0 /100 WBC (0-0); Total Cells Counted 100
[2020-12-21] MEDS ORDERED: oxyCODONE-APAP 10-325MG 1 EACH TAB PO PRN (12:09)
[2020-12-21] MEDS: methylPREDNISolone SOD SUCCI 125 MG/2 ML VIAL IV SCH ×2 (12:33→17:46)
--- NOTE | 2020-12-21 14:22 | XR ---
EXAMINATION TYPE: XR chest 1V portable DATE OF EXAM: 12/21/2020 COMPARISON: 12/21/2020 HISTORY: Post right thoracentesis TECHNIQUE: Single frontal view of the chest is obtained. FINDINGS: There is right-sided consolidation and pleural effusion with perihilar infiltrate or adeno jayro. Volume loss on the right noted. Postsurgical change involving the shoulder with bilateral arth ropathy. Coarsened interstitium. Heart size mildly prominent but stable. No sizable pneumothorax. IMPRESSION: 1. Pleural and parenchymal changes are stable with interval reduction in amount of pleural fluid on t he right. No sizable pneumothorax. 2. Right lower lobe infiltrate. Right perihilar soft tissue mass suspected.
[2020-12-21] MEDS: ALBUTEROL HFA INHALER INHALATION PRN (14:26)
--- NOTE | 2020-12-21 14:27 | US ---
Ultrasound-guided therapeutic thoracentesis DATE OF EXAM: 12/21/2020 CLINICAL HISTORY: Right pleural effusion The procedure was discussed with the patient. The risks, complications, benefits, and alternatives we re discussed and any questions were answered. Informed consent was obtained. The patient was placed supine on the ultrasound table and prepped and draped in the usual sterile fas hion. All elements of maximal barrier and sterile technique were utilized. Under ultrasound guidance, access into the pleural space was obtained, via the thoracentesis catheter system and direct ultrasound guidance. Ap proximately 1.4 liters of straw-colored fluid was removed. The patient was stable throughout the procedure and remained stable upon discharge from Department of Radiology. IMPRESSION: 1. Successful therapeutic thoracentesis under ultrasound guidance.
[2020-12-21] MEDS: FUROSEMIDE 20 MG TAB PO SCH (14:35)
[2020-12-21] MEDS: guaiFENesin 600 MG TABLET.ER PO SCH ×2 (16:23→20:42)
--- NOTE | 2020-12-21 18:15 | P.CONS ---
History of Present Illness - Reason for Consult Consult date: 12/21/20 recurrent effusion, stage III non-small cell lung cancer Requesting physician: Kris Dean - Chief Complaint shortness of breath, difficulty in breathing - History of Present Illness Mr. Matias is a very pleasant male patient well-known to our practice. He had his fourth cycle of maintenance imfinzi 3 days ago. He states the evening of the infusion he noticed some increased shortness of breath, this progressed yesterday when he was cutting the grass, pretty significantly. he had a CTA at [facility] that was negative for PE. He was transferred to [facility] for further evaluation. When seen today patient is visibly short of breath, but his respirations are short and shallow, he is positioning himself to ease his breathing, he did have a coughing episode that makes him very short of breath. He complains of chest pain related to cough, he is not coughing up anything, no hemoptysis. He denies any fevers, chills, nausea, vomiting, abdominal pain or cramping, no acute changes in bowel or bladder habits, bleeding, rashes or other physical complaints. malignancy history:Seen in initial consult [facility] 04/20/20, presented with productive cough, whitish/yellowish sputum 2 weeks prior admission. Hospitalized at [facility] from 04/11/20-04/13/20 and treated with antibiotics. Had initial improvement but, developed rapid recurrence of symptoms after discharge. He was on oral antibiotics as an outpatient without much improvement. He therefore came back to the hospital with CTA of the chest performed to rule out PE. This was negative but showed bilateral pneumonia more prominent in the right lower lobe, as well as evidence of central right lung mass and massive mediastinal and hilar adenopathy. Bronchoscopy 04/19/20 showed a large tumor involving the sera, cauliflower in shape, right side was more involved than the left. Left sided bronchi were able to be visualized but right middle and lower lobe bronchi were occluded by the sera tumor. 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 Staging PET 04/30/20 showed uptake in retrograde vertebral and pretracheal adenopathy, right hilar nodes, and subcarinal nodes. Groundglass opacities present through much of the right upper lobe which showed associated uptake with patchy areas, some nodularity in the right middle lobe and only mild uptake in one of the peripheral nodules. No evidence of any distant metastatic disease. P ostoperative changes of the left hip a lytic lucency in the proximal right humerus were noted, without any associated uptake. Started radiation in [place] 05/12/20. Started concurrent chemoRT with weekly Carbo/Taxol on 05/17/20.Completed 7 cycles 06/28/20, and XRT on 06/30/20. Post treatment CT scans in 08/14 showed partial response. He was placed on maintenance imfinzi. Recently he had progressive SOB after IO treatment, was given a course of antibiotics. CT showed increased RLL opacity, with air bronchograms. A pleural effusion was seen. Immunotherapy was held. Thoracentesis on 12/09/20, pt symptoms improved, cytology was negative for malignancy. I was felt patient could be rechallenged with immunotherapy, he had a cycle 3 days ago leading to admission as described above. Review of Systems 10 point review of systems is negative except as stated in HPI Past Medical History Past Medical History: Cancer, Chest Pain / Angina, Heart Failure, COPD, Hypertension, Myocardial Infarction ([place]), Skin Disorder Additional Past Medical History / Comment(s): chronic back pain, [place] spring 2015; pt has history of PVD with LLE cellulitis, states he had vascular surgery to improve healing, lung CA, had chemo and radiation now getting immunotherapy Last Myocardial Infarction Date:: 2015 History of Any Multi-Drug Resistant Organisms: MRSA Year Discovered:: 06/25/17 MDRO Source:: LEFT LEG Past Surgical History: Heart Catheterization With Stent, Hernia Repair, Orthopedic Surgery Additional Past Surgical History / Comment(s): left femur ORIF 40 years ago, left leg bypass; two stents placed in November 2019, hernia repair 2019 Past Anesthesia/Blood Transfusion Reactions: No Reported Reaction Date of Last Stent Placement:: November 2019 Past Psychological History: Anxiety Smoking Status: Former smoker Past Alcohol Use History: Heavy Additional Past Alcohol Use History / Comment(s): Drinks about two alcoholic drinks a day, used to be a heavy drinker Past Drug Use History: None Reported - Past Family History Father Additional Family Medical History / Comment(s): lung cancer Brother(s) Additional Family Medical History / Comment(s): lung cancer Medications and Allergies Home Medications Medication Instructions Recorded Confirmed Type Aspirin [Adult Low Dose Aspirin EC] 81 mg PO DAILY 11/11/17 12/21/20 History Furosemide [Lasix] 20 mg PO DAILY 04/20/20 12/21/20 History Albuterol Sulfate [Proair Hfa] 2 puff INHALATION RT-Q6H PRN 12/05/20 12/21/20 History Ondansetron [Zofran] 4 mg PO Q6H PRN 12/05/20 12/21/20 History carvediloL [Coreg*] 12.5 mg PO BID 12/05/20 12/21/20 History oxyCODONE-APAP 10-325MG [Percocet 1 tab PO Q6HR PRN 12/05/20 12/21/20 History 10-325 mg] Formoterol Fumarate [Perforomist] 20 mg INHALATION RT-BID 12/21/20 12/21/20 History Morphine Sulfate Ir [MSIR] 15 mg PO BID PRN 12/21/20 12/21/20 History methylPREDNISolone [Medrol Dose See Taper PO DIRECTED 12/21/20 12/21/20 History Pack] Allergies Allergy/AdvReac Type Severity Reaction Status Date / Time No Known Allergies Allergy Verified 12/21/20 08:08 Physical Exam Vitals: Vital Signs Temp Pulse Resp BP Pulse Ox 12/21/20 07:38 99.4 F 100 20 131/75 96 Intake and Output 12/20/20 12/21/20 12/21/20 22:59 06:59 14:59 Other: Weight 90.718 kg - Constitutional General appearance: average body habitus, cooperative, mild distress - EENT Eyes: anicteric sclerae, EOMI ENT: hearing grossly normal, normal oropharynx - Neck Neck: no lymphadenopathy - Respiratory Respiratory: bilateral: rales (scattered) - Cardiovascular Rhythm: regular Heart sounds: normal: S1, S2 Abnormal Heart Sounds: no systolic murmur, no diastolic murmur, no rub, no S3 Gallop, no S4 Gallop, no click, no other leg Peripheral Edema: bilateral: None - Gastrointestinal General gastrointestinal: no absent bowel sounds, no decreased bowel sounds, no distended, no hepatomegaly, no hyperactive bowel sounds, normal bowel sounds, no organomegaly, no rigid, no scaphoid, soft, no splenomegaly, no tenderness, no umbilical hernia, no ventral hernia - Neurologic Neurologic: CNII-XII intact - Musculoskeletal Musculoskeletal: strength equal bilaterally - Psychiatric Psychiatric: A&O x's 3, appropriate affect, intact judgment & insight Results CBC & Chem 7: 12/21/20 08:48 12/21/20 08:48 Chest x-ray: report reviewed Assessment and Plan (1) COPD (chronic obstructive pulmonary disease) Current Visit: Yes Status: Acute Priority: High Code(s): J44.9 - CHRONIC OBSTRUCTIVE PULMONARY DISEASE, UNSPECIFIED SNOMED Code(s): 66563118 (2) Non-small cell cancer of right lung Current Visit: Yes Status: Chronic Priority: Medium Code(s): C34.91 - MALIGNANT NEOPLASM OF UNSP PART OF RIGHT BRONCHUS OR LUNG SNOMED Code(s): 570005695 Plan: Patient's respiratory complaints could be characterized as immunotherapy side effect, COPD exacerbation or from recurrent pleural effusion. On exam though, was not convinced that the effusion was very large but, consult for Interve ntional Radiology to evaluate and perform thoracentesis if appropriate. Cytology was requested to be sent on pleural fluid. Patient started on steroids in case we are dealing with and immunotherapy-induced pneumonitis. Antibiotics have been ordered in case of infection. We'll follow up with the patient in the a.m. to see how his breathing has improved. Case was discussed with Dr. Ignacio. Patient may likely have to DC IO treatment. It was reported to me that the CTA was done at [facility] and was negative for PE. Order for the same discontinued.
[2020-12-21 20:09] VITALS: RESP 20
[2020-12-21] MEDS: FORMOTEROL FUMARATE 20 MCG/2 ML NEBU INHALATION SCH (20:24)
[2020-12-21] MEDS: carvediloL 12.5 MG TAB PO SCH (20:42)
--- NOTE | 2020-12-21 22:04 | P.HPIM ---
History of Present Illness H&P Date: 12/21/20 Chief Complaint: Shortness of breath Patient is a 70-year-old male with a known history of non-small cell lung cancer currently immunotherapy last dose about 3 days ago, COPD, hypertension, coronary disease with history of NV and stent placement history of severe alcohol abuse and previous history of smoking presents to ER with complaints of worsening shortness of breath since yesterday. Patient initially presented to [facility] where he was found to be having increased pleural effusion. CT angiogram at [facility] is negative for any acute pulmonary embolism. Patient was transferred to [facility] for thoracentesis and further evaluation. Patient is scheduled for thoracentesis today. Patient had previous pleural tap on 12/09/2020. Cytology at that time was negative for any malignant cells. Chest x-ray today morning showed COPD with right-sided infiltrate and pleural effusion. Follow-up to resolution of the right perihilar region recommended to exclude adenopathy or mass. Laboratory data showed WBC 3.9 hemoglobin 11.9 and platelets 219 Sodium 136 potassium 4.2 chloride 103 BUN 6 and creatinine 0.58 and blood sugar is 115 Review of Systems Constitutional: Patient denies any fever or chills . No generalized weakness or weight loss. Abdomen: Patient denied nausea vomiting and diarrhea and abdominal pain. Cardiovascular: Patient denies any chest pain or short of breath no palpitations. Respiratory: Patient does have shortness of breath. No cough or sputum production. Neurologic: Patient denied any numbness or tingling headache. Musculoskeletal: Patient denies any complaints of joint swelling or deformity. Skin: Negative Psychiatric: Negative Endocrine: No heat or cold intolerance. No recent weight gain. Genitourinary: No dysuria or hematuria. All other 14 point ROS negative except the above Past Medical History Past Medical History: Cancer, Chest Pain / Angina, Heart Failure, COPD, Hypertension, Myocardial Infarction ([place]), Skin Disorder Additional Past Medical History / Comment(s): chronic back pain, [place] spring 2015; pt has history of PVD with LLE cellulitis, states he had vascular surgery to improve healing, lung CA, had chemo and radiation now getting immunotherapy Last Myocardial Infarction Date:: 2015 History of Any Multi-Drug Resistant Organisms: MRSA Date of last positivie culture/infection: 06/25/17 MDRO Source:: LEFT LEG Past Surgical History: Heart Catheterization With Stent, Hernia Repair, Orthopedic Surgery Additional Past Surgical History / Comment(s): left femur ORIF 40 years ago, left leg bypass; two stents placed in November 2019, hernia repair 2019 Past Anesthesia/Blood Transfusion Reactions: No Reported Reaction Date of Last Stent Placement:: November 2019 Past Psychological History: Anxiety Smoking Status: Former smoker Past Alcohol Use History: Heavy Additional Past Alcohol Use History / Comment(s): Drinks about two alcoholic drinks a day, used to be a heavy drinker Past Drug Use History: None Reported - Past Family History Father Additional Family Medical History / Comment(s): lung cancer Brother(s) Additional Family Medical History / Comment(s): lung cancer Medications and Allergies Home Medications Medication Instructions Recorded Confirmed Type Aspirin [Adult Low Dose Aspirin EC] 81 mg PO DAILY 11/11/17 12/21/20 History Furosemide [Lasix] 20 mg PO DAILY 04/20/20 12/21/20 History Albuterol Sulfate [Proair Hfa] 2 puff INHALATION RT-Q6H PRN 12/05/20 12/21/20 History Ondansetron [Zofran] 4 mg PO Q6H PRN 12/05/20 12/21/20 History carvediloL [Coreg*] 12.5 mg PO BID 12/05/20 12/21/20 History oxyCODONE-APAP 10-325MG [Percocet 1 tab PO Q6HR PRN 12/05/20 12/21/20 History 10-325 mg] Formoterol Fumarate [Perforomist] 20 mg INHALATION RT-BID 12/21/20 12/21/20 History Morphine Sulfate Ir [MSIR] 15 mg PO BID PRN 12/21/20 12/21/20 History methylPREDNISolone [Medrol Dose See Taper PO DIRECTED 12/21/20 12/21/20 History Pack] Allergies Allergy/AdvReac Type Severity Reaction Status Date / Time No Known Allergies Allergy Verified 12/21/20 08:08 Physical Exam Vitals: Vital Signs Temp Pulse Resp BP Pulse Ox 12/21/20 07:38 99.4 F 100 20 131/75 96 Intake and Output 12/20/20 12/21/20 12/21/20 22:59 06:59 14:59 Other: Weight 90.718 kg PHYSICAL EXAMINATION: Patient is lying in the bed comfortably, no acute distress, awake alert and oriented.. HEENT: Normocephalic. Neck is supple. Pupils reactive. Nostrils clear. Oral cavity is moist. Neck reveals no JVD, carotid bruits, or thyromegaly. CHEST EXAMINATION: Trachea is central. Symmetrical expansion. Right basilar diminished sounds. Scattered rhonchi and fine crackles, nonlabored breathing. No wheezing.. CARDIAC: Normal S1, S2 with no gallops. No murmurs ABDOMEN: Soft. Bowel sounds normal. No organomegaly. No abdominal bruits. Extremities: 2+ edema. No clubbing or cyanosis Neurologically awake, alert, oriented x3 with well-coordinated movements. No focal deficits noted Skin: No rash or skin lesions. Psychiatric: Coperative. Nonsuicidal Musculoskeletal: No joint swelling or deformity. Normal range of motion. Results CBC & Chem 7: 12/21/20 08:48 12/21/20 08:48 Labs: Abnormal Lab Results - Last 24 Hours (Table) 12/21/20 12/21/20 Range/Units 08:48 08:48 RBC 4.17 L (4.30-5.90) m/uL Hgb 11.9 L (13.0-17.5) gm/dL Hct 36.7 L (39.0-53.0) % RDW 17.1 H (11.5-15.5) % Lymphocytes # (Manual) 0.31 L (1.0-4.8) k/uL Sodium 136 L (137-145) mmol/L BUN 6 L (9-20) mg/dL Creatinine 0.58 L (0.66-1.25) mg/dL Glucose 115 H (74-99) mg/dL Total Protein 5.9 L (6.3-8.2) g/dL Thrombosis Risk Factor Assmnt - DVT/VTE Prophylaxis DVT/VTE Prophylaxis: Pharmacologic Prophylaxis ordered Assessment and Plan Assessment: Shortness of breath with worsening right-sided pleural effusion likely malignant effusion. Immunotherapy induced pneumonitis cannot be excluded. Non-small cell lung cancer. S/p chemo and radiation Currently immunotherapy. Coronary disease history of stent placement Hypertension COPD Previous history of smoking Chronic back pain History of heavy alcohol abuse History of peripheral vascular disease DVT prophylaxis with heparin subcu Plan: Patient is scheduled for IR guided thoracentesis today. Follow-up fluid analysis and cytology for any malignant cells. Started on methylprednisolone for possible immunotherapy induced pneumonitis as per oncology recommendations. Continue with Lasix. Patient will be started back on aspirin, Coreg and statins. Follow-up respiratory status closely. Continue with breathing treatments. Pr ognosis guarded at this time. Time with Patient: Greater than 30
[2020-12-22] MEDS: HEPARIN SODIUM,PORCINE/PF 5,000 UNIT/0.5 ML SYRINGE SQ SCH ×2 (00:02→07:27)
[2020-12-22] MEDS: methylPREDNISolone SOD SUCCI 125 MG/2 ML VIAL IV SCH ×3 (00:02→11:56)
[2020-12-22] MEDS: HYDROmorphone 1 MG/ML 1 ML SYRINGE IVP PRN ×3 (00:08→07:28)
[2020-12-22 04:57] VITALS: BP 147/78; TEMP 98.7
[2020-12-22] MEDS: MORPHINE SULFATE 4 MG/ML SYRINGE IV PRN ×2 (06:18→10:18)
[2020-12-22 06:23] LABS: African American GFR (CKD) >90 (>60 ml/min/1.73 sqM); Anion Gap 6 mmol/L; Blood Urea Nitrogen 13 mg/dL (9-20); Calcium 8.8 mg/dL (8.4-10.2); Carbon Dioxide 25 mmol/L (22-30); Chloride 103 mmol/L (98-107); Glucose 139 mg/dL (74-99); Non-African American GFR(CKD) >90 (>60 ml/min/1.73 sqM); Sodium 134 mmol/L (137-145)
[2020-12-22 06:26] LABS: Potassium 5.3 mmol/L (3.5-5.1)
[2020-12-22 06:36] LABS: Anisocytosis Slight; Basophils % (A) 0 %; Eosinophils % (A) 1 %; HCT 37.2 % (39.0-53.0); HGB 12.3 gm/dL (13.0-17.5); Lymphocytes # (A) 0.3 k/uL (1.0-4.8); Lymphocytes % (A) 5 %; MCH 28.4 pg (25.0-35.0); MCV 85.9 fL (80.0-100.0); Mean Platelet Volume 7.5; Monocytes # (A) 0.2 k/uL (0-1.0); Monocytes % (A) 4 %; Neutrophils % (A) 89 %; Platelet Count 186 k/uL (150-450); RBC 4.33 m/uL (4.30-5.90); RDW 17.2 % (11.5-15.5); WBC 5.6 k/uL (3.8-10.6)
[2020-12-22] MEDS: carvediloL 12.5 MG TAB PO SCH (07:28)
[2020-12-22] MEDS: guaiFENesin 600 MG TABLET.ER PO SCH (07:28)
[2020-12-22] MEDS: FUROSEMIDE 20 MG TAB PO SCH (07:28)
[2020-12-22] MEDS: FORMOTEROL FUMARATE 20 MCG/2 ML NEBU INHALATION SCH (07:43)
[2020-12-22] MEDS: ALBUTEROL HFA INHALER INHALATION PRN (07:43)
[2020-12-22] MEDS ORDERED: ASPIRIN 81 MG PO SCH (09:00)
[2020-12-22 11:51] VITALS: PULSE 94
--- NOTE | 2020-12-22 18:11 | P.PN ---
Subjective Progress Note Date: 12/22/20 Principal diagnosis: shortness of breath, pleural effusion in follow-up today patient states feeling significantly better than on admit. He is status post a 1.4 L right thoracentesis, cytology pending. He has been started on steroids. He still feeling some postnasal drip but cough is significantly improved, he is able to ambulate without significant shortness of breath. Objective - Vital Signs Vital signs: Vital Signs Temp 98.7 F 12/22/20 04:35 Pulse 92 12/22/20 07:57 Resp 20 12/22/20 08:00 BP 147/78 12/22/20 04:35 Pulse Ox 97 12/22/20 04:35 Intake & Output 12/21/20 12/22/20 12/22/20 18:59 06:59 18:59 Intake Total 100 240 Balance 100 240 Weight 90.718 kg Intake: Oral 100 240 Other: # Voids 2 - Constitutional General appearance: Present: average body habitus, cooperative, no acute distress - EENT Eyes: Present: anicteric sclerae, EOMI ENT: Present: hearing grossly normal - Respiratory Respiratory: right: rhonchi (lower lobe), bilateral: CTA - Cardiovascular Rhythm: regular Heart sounds: normal: S1, S2 Abnormal Heart Sounds: Absent: systolic murmur, diastolic murmur, rub, S3 Gallop, S4 Gallop, click, other - Peripheral edema foot Peripheral Edema: bilateral: Trace - Gastrointestinal General gastrointestinal: Present: normal bowel sounds, soft - Neurologic Neurologic: Present: CNII-XII intact - Musculoskeletal Musculoskeletal: Present: strength equal bilaterally - Psychiatric Psychiatric: Present: A&O x's 3, appropriate affect, intact judgment & insight - Labs CBC & Chem 7: 12/22/20 05:29 12/22/20 05:29 Labs: Abnormal Lab Results - Last 24 Hours (Table) 12/21/20 12/22/20 12/22/20 Range/Units 08:48 05: 05:29 Hgb 12.3 L (13.0-17.5) gm/dL Hct 37.2 L (39.0-53.0) % RDW 17.2 H (11.5-15.5) % Lymphocytes # 0.3 L (1.0-4.8) k/uL Lymphocytes # (Manual) 0.31 L (1.0-4.8) k/uL Sodium 134 L (137-145) mmol/L Potassium 5.3 H (3.5-5.1) mmol/L Creatinine 0.46 L (0.66-1.25) mg/dL Glucose 139 H (74-99) mg/dL Assessment and Plan (1) COPD (chronic obstructive pulmonary disease) Status: Acute Priority: High Code(s): J44.9 - CHRONIC OBSTRUCTIVE PULMONARY DISEASE, UNSPECIFIED SNOMED Code(s): 83281513 (2) Non-small cell cancer of right lung Status: Chronic Priority: Medium Code(s): C34.91 - MALIGNANT NEOPLASM OF UNSP PART OF RIGHT BRONCHUS OR LUNG SNOMED Code(s): 582831485 Plan: Prednisone taper has been sent to [facility] pharmacy. Follow-up appointment is scheduled. Dr. Ignacio discussed with the patient that currently the plan is to hold IO therapy treatment for now. Having this recurrent pleural effusion after IO therapy is not what would be anticipated if the patient was having systemic immunotherapy reaction, these findings would be anticipated to be in both lungs. Patient did have a pneumonia in the right lung previously and possibly, if there is a chronic underlying infection, the immunotherapy may be producing increased activity leading to recurrent, non-malignant pleural effusion. The plan is to hold therapy, have patient complete a 6 week course of antibiotics and maybe do some further up imaging of the chest. Pending pleural fluid cytology Patient is okay from an Oncology standpoint to be discharged once patient is cleared by Attending and other consulted Physicians. Doctor attests: I performed a history and physical examination of this patient, developed impression and plan of care, discussed with dictator. I agree with dictators note, documented as a scribe.
--- NOTE | 2020-12-25 00:57 | P.DS ---
Providers Date of admission: 12/21/20 04:00 Expected date of discharge: 12/22/20 Attending physician: Kris Dean Consults: 12/21/20 04:00 Consult Physician Routine Consulting Provider: Rashad Ignacio Consult Reason/Comments: Recurrent effusion Do you want consulting provider notified?: Yes Primary care physician: Chris Bellamy [facility] Course: Final Diagnosis Shortness of breath with worsening right-sided pleural effusion likely malignant effusion. Immunotherapy induced pneumonitis cannot be excluded. Non-small cell lung cancer. S/p chemo and radiation Currently immunotherapy. Coronary disease history of stent placement Hypertension COPD Previous history of smoking Chronic back pain History of heavy alcohol abuse History of peripheral vascular disease DVT prophylaxis Discharge disposition Patient is being discharged in a stable condition with guarded prognosis to home. Patient will follow-up with Dr. Chris Bellamy in the outpatient setting upon discharge. Patient is to also follow up with oncology Dr. Ignacio outpatient. Patient to continue on prednisone taper. Total time taken is greater than 35 minutes. Hospital course Patient is a 70-year-old male with a known history of non-small cell lung cancer currently immunotherapy last dose about 3 days ago, COPD, hypertension, coronary disease with history of [place] and stent placement history of severe alcohol abuse and previous history of smoking presents to ER with complaints of worsening shortness of breath since yesterday. Patient initially presented to [facility] where he was found to be having increased pleural effusion. CT angiogram at [facility] is negative for any acute pulmonary embolism. Patient was transferred to [facility] for thoracentesis and further evaluation. Patient is scheduled for thoracentesis today. Patient had previous pleural tap on 12/09/2020. Cytology at that time was negative for any malignant cells. Chest x-ray today morning showed COPD with right-sided infiltrate and pleural effusion. Follow-up to resolution of the right perihilar region recommended to exclude adenopathy or mass. Laboratory data showed WBC 3.9 hemoglobin 11.9 and platelets 219 Sodium 136 potassium 4.2 chloride 103 BUN 6 and creatinine 0.58 and blood sugar is 115 12/22/2020 Patient is seen in follow-up this morning and was evaluated by oncology and will continue on prednisone taper on discharge. Patient was evaluated for oxygen on discharge and did not qualify. Patient will need outpatient follow up with oncology and pulmonary. Patient is requesting to go home. Currently no reports of chest pain, shortness of breath, or palpitations. Patient is afebrile. No reports of nausea or vomiting and patient is tolerating diet. Patient will be discharged home today. On exam vital signs are stable. Cardio S1, S2 are muffled. Respiratory system shows diminished breath sounds at the bases with no wheezing or rhonchi noted. Abdomen is soft and nontender. Nervous system shows no focal deficit. Please refer to medication reconciliation sheet for a list of medications. Patient Condition at Discharge: Stable Plan - Discharge Summary New Discharge Prescriptions: New predniSONE 60 mg PO DAILY #108 tab guaiFENesin [Mucinex] 1,200 mg PO Q12HR #20 tablet.er Continue Aspirin [Adult Low Dose Aspirin EC] 81 mg PO DAILY Furosemide [Lasix] 20 mg PO DAILY carvediloL [Coreg*] 12.5 mg PO BID oxyCODONE-APAP 10-325MG [Percocet 10-325 mg] 1 tab PO Q6HR PRN PRN Reason: Pain Ondansetron [Zofran] 4 mg PO Q6H PRN PRN Reason: Nausea Formoterol Fumarate [Perforomist] 20 mg INHALATION RT-BID Albuterol Sulfate [Proair Hfa] 2 puff INHALATION RT-Q6H PRN PRN Reason: Shortness Of Breath Morphine Sulfate Ir [MSIR] 15 mg PO BID PRN PRN Reason: Pain Discharge Medication List Aspirin [Adult Low Dose Aspirin EC] 81 mg PO DAILY 11/11/17 [History] Furosemide [Lasix] 20 mg PO DAILY 04/20/20 [History] Albuterol Sulfate [Proair Hfa] 2 puff INHALATION RT-Q6H PRN 12/05/20 [History] Ondansetron [Zofran] 4 mg PO Q6H PRN 12/05/20 [History] carvediloL [Coreg*] 12.5 mg PO BID 12/05/20 [History] oxyCODONE-APAP 10-325MG [Percocet 10-325 mg] 1 tab PO Q6HR PRN 12/05/20 [History] Formoterol Fumarate [Perforomist] 20 mg INHALATION RT-BID 12/21/20 [History] Morphine Sulfate Ir [MSIR] 15 mg PO BID PRN 12/21/20 [History] guaiFENesin [Mucinex] 1,200 mg PO Q12HR #20 tablet.er 12/22/20 [Rx] predniSONE 60 mg PO DAILY #108 tab 12/22/20 [Rx] Follow up Appointment(s)/Referral(s): Rashad Ignacio MD [STAFF PHYSICIAN] - 01/12/21 1:15 pm Chris Bellamy MD [Primary Care Provider] - 1 Week Patient Instructions/Handouts: Pleural Effusion (DC) Activity/Diet/Wound Care/Special Instructions: Activity Limited until follow-up follow up oncology outpatient as scheduled Follow-up with primary care provider upon discharge Continue with prednisone taper as directed Continue current diet Discharge Disposition: HOME SELF-CARE
== END 2020-12-22 12:22 | disposition home or self-care (01) | DRG 181 ==
LOC: EC 03:28 → 5NMEDONC 04:00
PROVIDERS: ADMIT Hospitalist; ATTEND Hospitalist
PROC: 0W993ZZ Drainage of Right Pleural Cavity, Percutaneous Approach (ICD-10-PCS; principal; 2020-12-21)
DX: C34.91 Malignant neoplasm of unspecified part of right bronchus or lung (principal); J91.0 Malignant pleural effusion; I11.0 Hypertensive heart disease with heart failure; I25.10 Atherosclerotic heart disease of native coronary artery without angina pectoris; I50.9 Heart failure, unspecified; Z87.891 Personal history of nicotine dependence; F10.10 Alcohol abuse, uncomplicated; I25.2 Old myocardial infarction; J44.9 Chronic obstructive pulmonary disease, unspecified; Z92.21 Personal history of antineoplastic chemotherapy; Z92.3 Personal history of irradiation; I73.9 Peripheral vascular disease, unspecified; Z86.14 Personal history of Methicillin resistant Staphylococcus aureus infection; Z80.1 Family history of malignant neoplasm of trachea, bronchus and lung; Z79.82 Long term (current) use of aspirin; G89.29 Other chronic pain; M54.9 Dorsalgia, unspecified; Z95.5 Presence of coronary angioplasty implant and graft; F41.9 Anxiety disorder, unspecified; Z79.899 Other long term (current) drug therapy
CPT/HCPCS: 32555; 71045; 80048; 80053; 83735; 85025; 85610; 88108; 88305; 88341; 88342; 94640; 96374; 96375; 96376; 99285

== ENCOUNTER 2021-01-12 14:24 | Inpatient (IN) | payer MEDICARE, OTHER ==
[2021-01-12] MEDS ORDERED: ACETAMINOPHEN TAB 500 MG TAB PO STA (15:10)
[2021-01-12] MEDS ORDERED: IPRATROPIUM-ALBUTEROL 3 ML NEB INHALATION STA (15:10)
--- NOTE | 2021-01-12 15:23 | ED ---
General Adult HPI - General Chief complaint: Shortness of Breath Stated complaint: SOB Time Seen by Provider: 01/12/21 14:40 Source: patient, RN notes reviewed, old records reviewed Mode of arrival: wheelchair Limitations: no limitations - History of Present Illness Initial comments: This a 70-year-old male with past medical history of lung cancer. Patient states he also has had a pleural effusion and pneumonia recently had fluid drained off his lungs and was on antibiotics. Patient states over the last 3 days she's becoming more more short of breath and has a slight cough. Patient states he went saw his oncologist and the oncologist want to come to be evaluated emergency department. Patient states he has been cold but he hasn't noticed a fever. However I took his temperature in the emergency department had 100.7 temperature. Patient denies any chest pain or palpitations. Patient has a headache patient denies numbness weakness. Patient denies abdominal pain patient denies nausea vomiting diarrhea. Patient denies any swelling to his legs or calf tenderness. - Related Data Home Medications Medication Instructions Recorded Confirmed Aspirin [Adult Low Dose Aspirin EC] 81 mg PO DAILY 11/11/17 01/12/21 Albuterol Sulfate [Proair Hfa] 2 puff INHALATION RT-Q6H PRN 12/05/20 01/12/21 Ondansetron [Zofran] 4 mg PO Q6H PRN 12/05/20 01/12/21 carvediloL [Coreg*] 12.5 mg PO BID 12/05/20 01/12/21 oxyCODONE-APAP 10-325MG [Percocet 1 tab PO Q6HR PRN 12/05/20 01/12/21 10-325 mg] Formoterol Fumarate [Perforomist] 20 mcg INHALATION RT-BID 12/21/20 01/12/21 Benzonatate [Tessalon Perles] 100 mg PO QID PRN 01/12/21 01/12/21 Furosemide [Lasix] 20 mg PO DAILY 01/12/21 01/12/21 Ipratropium-Albuterol Nebulize 3 ml INHALATION RT-Q6H PRN 01/12/21 01/12/21 [Duoneb 0.5 mg-3 mg/3 ml Soln] Morphine Sulfate ER [Ms Contin] 15 mg PO BID PRN 01/12/21 01/12/21 Multivit-Min/Folic/Vit K/Lycop 1 tab PO DAILY 01/12/21 01/12/21 [Men's Multivitamin Tablet] Potassium Chloride [Klor-Con 20] 20 meq PO DAILY 01/12/21 01/12/21 guaiFENesin [Mucinex] 1,200 mg PO Q12HR PRN 01/12/21 01/12/21 Allergies Allergy/AdvReac Type Severity Reaction Status Date / Time No Known Allergies Allergy Verified 01/12/21 14:39 Review of Systems ROS Statement: Those systems with pertinent positive or pertinent negative responses have been documented in the HPI. ROS Other: All systems not noted in ROS Statement are negative. Past Medical History Past Medical History: Cancer, Chest Pain / Angina, Heart Failure, COPD, Hypertension, Myocardial Infarction ([place]), Skin Disorder Additional Past Medical History / Comment(s): chronic back pain, [place] spring 2015; pt has history of PVD with LLE cellulitis, states he had vascular surgery to improve healing, lung CA, had chemo and radiation now getting immunotherapy Last Myocardial Infarction Date:: 2015 History of Any Multi-Drug Resistant Organisms: MRSA Date of last positivie culture/infection: 06/25/17 MDRO Source:: LEFT LEG Past Surgical History: Heart Catheterization With Stent, Hernia Repair, Orthopedic Surgery Additional Past Surgical History / Comment(s): left femur ORIF 40 years ago, left leg bypass; two stents placed in November 2019, hernia repair 2019 Past Anesthesia/Blood Transfusion Reactions: No Reported Reaction Date of Last Stent Placement:: November 2019 Past Psychological History: Anxiety Smoking Status: Former smoker Past Alcohol Use History: Heavy Past Drug Use History: None Reported - Past Family History Father Additional Family Medical History / Comment(s): lung cancer Brother(s) Additional Family Medical History / Comment(s): lung cancer General Exam - General Exam Comments Initial Comments: GENERAL: Patient is well-developed and well-nourished. Patient is nontoxic and well- hydrated and is in mild distress. Patient has normal temperature 100.7 ENT: Neck is soft and supple. No significant lymphadenopathy is noted. Oropharynx is clear. Moist mucous membranes. Neck has full range of motion without eliciting any pain. EYES: The sclera were anicteric and conjunctiva were pink and moist. Extraocular movements were intact and pupils were equal round and reactive to light. Eyelids were unremarkable. PULMONARY: Patient has some expiratory wheezing bilaterally and some crackles in the bases. CARDIOVASCULAR: There is a regular rate and rhythm without any murmurs gallops or rubs. ABDOMEN: Soft and nontender with normal bowel sounds. SKIN: Skin is clear with no lesions or rashes and otherwise unremarkable. NEUROLOGIC: Patient is alert and oriented x3. Cranial nerves II through XII are grossly intact. Motor and sensory are also intact. Normal speech, volume and content. Symmetrical smile. MUSCULOSKELETAL: Normal extremities with adequate strength and full range of motion. LYMPHATICS: No significant lymphadenopathy is noted PSYCHIATRIC: Normal psychiatric evaluation. Limitations: no limitations Course Vital Signs 01/12/21 01/12/21 01/12/21 14:36 15:11 15:22 Temperature 99.5 F 100.7 F H Pulse Rate 101 H Respiratory 18 18 Rate Blood Pressure 151/78 O2 Sat by Pulse 85 L Oximetry 01/12/21 01/12/21 01/12/21 15:50 16:01 18:08 Temperature 98.6 F Pulse Rate 98 98 95 Respiratory 18 Rate Blood Pressure 128/64 O2 Sat by Pulse 95 Oximetry Medical Decision Making - Medical Decision Making EKG shows sinus tachycardia at 103 bpm with occasional PAC ND interval is 160 QRS is 90 QT interval 360 QTC is 482. Patient's EKG shows no ST segment elevation or depression. Computed tomography scan shows no pulmonary embolism shows a redemonstration of the moderate sized pleural effusion on the right and there is also an opacification consistent with pneumonia. This occurred at approximately 7 PM. I started the patient on antibiotics at this time. I spoke with Dr. Sr he agreed to admit the patient to the patient I consult to Dr. Ignacio and I consulted pulmonary. - Lab Data Result diagrams: 01/12/21 16:24 01/12/21 16:24 Lab Results 01/12/21 01/12/21 01/12/21 Range/Units 16:24 16:24 16:24 WBC 7.8 (3.8-10.6) k/uL RBC 4.18 L (4.30-5.90) m/uL Hgb 11.9 L (13.0-17.5) gm/dL Hct 37.5 L (39.0-53.0) % MCV 89.7 (80.0-100.0) fL MCH 28.5 (25.0-35.0) pg MCHC 31.8 (31.0-37.0) g/dL RDW 17.3 H (11.5-15.5) % Plt Count 233 (150-450) k/uL MPV 7.5 Neutrophils % 91 % Lymphocytes % 4 % Monocytes % 3 % Eosinophils % 1 % Basophils % 0 % Neutrophils # 7.1 (1.3-7.7) k/uL Lymphocytes # 0.3 L (1.0-4.8) k/uL Monocytes # 0.2 (0-1.0) k/uL Eosinophils # 0.1 (0-0.7) k/uL Basophils # 0.0 (0-0.2) k/uL Hypochromasia Moderate Anisocytosis Slight PT (9.0-12.0) sec INR (<1.2) APTT (22.0-30.0) sec D-Dimer (<0.60) mg/L FEU Sodium (137-145) mmol/L Potassium (3.5-5.1) mmol/L Chloride (98-107) mmol/L Carbon Dioxide (22-30) mmol/L Anion Gap mmol/L BUN (9-20) mg/dL Creatinine (0.66-1.25) mg/dL Est GFR (CKD-EPI)AfAm (>60 ml/min/1.73 sqM) Est GFR (CKD-EPI)NonAf (>60 ml/min/1.73 sqM) Glucose (74-99) mg/dL Plasma Lactic Acid Elder (0.7-2.0) mmol/L Calcium (8.4-10.2) mg/dL Total Bilirubin (0.2-1.3) mg/dL AST (17-59) U/L ALT (4-49) U/L Alkaline Phosphatase (38-126) U/L Troponin I 0.021 (0.000-0.034) ng/mL Total Protein (6.3-8.2) g/dL Albumin (3.5-5.0) g/dL Coronavirus (PCR) Not Detected (Not Detectd) 01/12/21 01/12/21 01/12/21 Range/Units 16:24 16:24 16:24 WBC (3.8-10.6) k/uL RBC (4.30-5.90) m/uL Hgb (13.0-17.5) gm/dL Hct (39.0-53.0) % MCV (80.0-100.0) fL MCH (25.0-35.0) pg MCHC (31.0-37.0) g/dL RDW (11.5-15.5) % Plt Count (150-450) k/uL MPV Neutrophils % % Lymphocytes % % Monocytes % % Eosinophils % % Basophils % % Neutrophils # (1.3-7.7) k/uL Lymphocytes # (1.0-4.8) k/uL Monocytes # (0-1.0) k/uL Eosinophils # (0-0.7) k/uL Basophils # (0-0.2) k/uL Hypochromasia Anisocytosis PT 9.4 (9.0-12.0) sec INR 0.9 (<1.2) APTT 25.0 (22.0-30.0) sec D-Dimer 1.17 H (<0.60) mg/L FEU Sodium 133 L (137-145) mmol/L Potassium 4.1 (3.5-5.1) mmol/L Chloride 100 (98-107) mmol/L Carbon Dioxide 27 (22-30) mmol/L Anion Gap 6 mmol/L BUN 13 (9-20) mg/dL Creatinine 0.62 L (0.66-1.25) mg/dL Est GFR (CKD-EPI)AfAm >90 (>60 ml/min/1.73 sqM) Est GFR (CKD-EPI)NonAf >90 (>60 ml/min/1.73 sqM) Glucose 110 H (74-99) mg/dL Plasma Lactic Acid Elder 1.1 (0.7-2.0) mmol/L Calcium 8.4 (8.4-10.2) mg/dL Total Bilirubin 0.3 (0.2-1.3) mg/dL AST 28 (17-59) U/L ALT 17 (4-49) U/L Alkaline Phosphatase 147 H (38-126) U/L Troponin I (0.000-0.034) ng/mL Total Protein 5.8 L (6.3-8.2) g/dL Albumin 3.3 L (3.5-5.0) g/dL Coronavirus (PCR) (Not Detectd) Disposition Clinical Impression: Pleural effusion, Pneumonia, Hypoxia Disposition: ADMITTED IP TO THIS HOSP Referrals: Chris Bellamy MD [Primary Care Provider] - 1-2 days Time of Disposition: 19:28
[2021-01-12 16:34] LABS: Anisocytosis Slight; Basophils % (A) 0 %; Eosinophils # (A) 0.1 k/uL (0-0.7); Eosinophils % (A) 1 %; HCT 37.5 % (39.0-53.0); HGB 11.9 gm/dL (13.0-17.5); Hypochromasia Moderate; Lymphocytes # (A) 0.3 k/uL (1.0-4.8); Lymphocytes % (A) 4 %; MCH 28.5 pg (25.0-35.0); MCHC 31.8 g/dL (31.0-37.0); MCV 89.7 fL (80.0-100.0); Mean Platelet Volume 7.5; Monocytes # (A) 0.2 k/uL (0-1.0); Monocytes % (A) 3 %; Neutrophils # (A) 7.1 k/uL (1.3-7.7); Neutrophils % (A) 91 %; Platelet Count 233 k/uL (150-450); RBC 4.18 m/uL (4.30-5.90); RDW 17.3 % (11.5-15.5); WBC 7.8 k/uL (3.8-10.6)
[2021-01-12 16:41] LABS: ALT 17 U/L (4-49); AST 28 U/L (17-59); African American GFR (CKD) >90 (>60 ml/min/1.73 sqM); Albumin 3.3 g/dL (3.5-5.0); Alkaline Phosphatase 147 U/L (38-126); Anion Gap 6 mmol/L; Blood Urea Nitrogen 13 mg/dL (9-20); Calcium 8.4 mg/dL (8.4-10.2); Carbon Dioxide 27 mmol/L (22-30); Chloride 100 mmol/L (98-107); Glucose 110 mg/dL (74-99); Non-African American GFR(CKD) >90 (>60 ml/min/1.73 sqM); Potassium 4.1 mmol/L (3.5-5.1); Sodium 133 mmol/L (137-145); Total Bilirubin 0.3 mg/dL (0.2-1.3); Total Protein 5.8 g/dL (6.3-8.2)
[2021-01-12 16:47] LABS: INR 0.9 (<1.2); Prothrombin Time 9.4 sec (9.0-12.0)
--- NOTE | 2021-01-12 17:00 | XR ---
EXAMINATION TYPE: XR chest 2V DATE OF EXAM: 01/12/2021 COMPARISON: Chest x-ray December 21, 2020. CT November 10, 2020 HISTORY: Shortness of breath for 3 days, history of lung cancer. TECHNIQUE: Frontal and lateral views of the chest are obtained. FINDINGS: Underlying scoliosis redemonstrated. Persistent cardiomegaly. Persistent right-sided volum e loss. Background chronic emphysematous and pulmonary fibrotic changes with persistent small to mode rate size right pleural effusion and associated right mid to lower lung atelectasis and/or infiltrate . Component of underlying residual mass or neoplasm not excluded right hilar level. Surgical change l eft humeral head with metallic anchors. IMPRESSION: No significant change from most recent x-ray or most recent CT. Findings as detailed abo ve.
--- NOTE | 2021-01-12 18:11 | CT ---
EXAMINATION TYPE: CT CHEST ANGIO FOR PE WITH CONTRAST AND WITH 3-D RECONSTRUCTION RENDERINGS DATE OF EXAM: 01/12/2021 COMPARISON: CT 12/21/2020, chest radiograph 01/12/2021 HISTORY: Shortness of breath and chest pain. CT DLP: 364.1 mGycm Automated exposure control for dose reduction was used. CONTRAST: CT Chest for pulmonary embolism performed with with IV Contrast, patient injected with 100m l mL of Isovue 370. FINDINGS: Airways: There is moderate ventriculomegaly and mild diffuse bronchiectasis. Lungs: Bilateral apical scattered groundglass opacity noted. Pleural spaces: Redemonstrated moderate right-sided pleural effusion. Mediastinum: The pulmonary arterial tree is moderately well opacified. There is no definite filling d efect to suggest pulmonary embolism. There is mild cardiomegaly with prominent multifocal coronary calcifications and evidence of mild con centric left ventricular hypertrophy. There are no acute aortic findings. There are a few scattered subcentimeter short axis hilar and mediastinal lymph nodes. Skeletal structures: No focal lesions. Other/miscellaneous: No significant findings. IMPRESSION: 1. Negative for pulmonary embolism. 2. Moderate-marked right pleural effusion redemonstrated, stable in appearance. 3. Increased ground glass opacity when compared to the CT 12/21/2020.
[2021-01-12] MEDS ORDERED: CEFEPIME 2 GM in SODIUM CHLORIDE 0.9% 100 ML IVPB STA (19:37)
[2021-01-12] MEDS ORDERED: HYDROmorphone 0.5 MG/0.5 ML SYRINGE IVP STA (19:52)
[2021-01-12] MEDS ORDERED: PNEUMONIA PROTOCOL UTILIZED 1 EACH MISC PO PRN (22:02)
[2021-01-12] MEDS ORDERED: ACETAMINOPHEN TAB 325 MG TAB PO PRN (22:02)
[2021-01-12] MEDS ORDERED: IPRATROPIUM-ALBUTEROL 3 ML NEB INHALATION PRN (22:02)
[2021-01-12] MEDS ORDERED: NALOXONE 0.4 MG/ML 1 ML VIAL IV PRN (22:02)
[2021-01-12] MEDS ORDERED: AZITHROMYCIN 500 MG in SODIUM CHLORIDE 0.9% 250 ML IVPB ONE (22:15)
[2021-01-12 22:46] LABS: Appearance,Urine Clear (Clear); Bilirubin,Urine Negative (Negative); Blood,Urine Negative (Negative); Color,Urine Yellow; Glucose,Urine (UA) Negative (Negative); Ketones,Urine 1+ (Negative); Leukocyte Esterase,Urine Negative (Negative); Nitrite,Urine Negative (Negative); Protein,Urine Trace (Negative); Specific Gravity,Urine 1.042 (1.001-1.035); Urobilinogen,Urine <2.0 mg/dL (<2.0)
[2021-01-12] MEDS: MORPHINE SULFATE 4 MG/ML SYRINGE IV PRN (22:54)
[2021-01-12] MEDS: SODIUM CHLORIDE 0.9% 1,000 ML IV SCH (22:54)
[2021-01-13] MEDS: ONDANSETRON 4 MG/2 ML VIAL IVP PRN ×2 (00:03→04:43)
[2021-01-13 02:30] LABS: Anisocytosis Slight; Basophils % (A) 0 %; Eosinophils # (A) 0.1 k/uL (0-0.7); Eosinophils % (A) 1 %; HCT 38.3 % (39.0-53.0); HGB 12.2 gm/dL (13.0-17.5); Hypochromasia Moderate; Lymphocytes # (A) 0.2 k/uL (1.0-4.8); Lymphocytes % (A) 2 %; MCH 28.9 pg (25.0-35.0); MCHC 31.9 g/dL (31.0-37.0); MCV 90.6 fL (80.0-100.0); Mean Platelet Volume 7.1; Monocytes # (A) 0.2 k/uL (0-1.0); Monocytes % (A) 2 %; Neutrophils # (A) 9.5 k/uL (1.3-7.7); Neutrophils % (A) 93 %; Platelet Count 227 k/uL (150-450); RBC 4.23 m/uL (4.30-5.90); RDW 16.8 % (11.5-15.5); WBC 10.2 k/uL (3.8-10.6)
[2021-01-13 02:56] LABS: ALT 16 U/L (4-49); AST 28 U/L (17-59); African American GFR (CKD) >90 (>60 ml/min/1.73 sqM); Albumin 3.3 g/dL (3.5-5.0); Alkaline Phosphatase 162 U/L (38-126); Anion Gap 9 mmol/L; Blood Urea Nitrogen 11 mg/dL (9-20); Calcium 8.3 mg/dL (8.4-10.2); Carbon Dioxide 23 mmol/L (22-30); Chloride 101 mmol/L (98-107); Glucose 109 mg/dL (74-99); Magnesium 2.1 mg/dL (1.6-2.3); Non-African American GFR(CKD) >90 (>60 ml/min/1.73 sqM); Potassium 4.4 mmol/L (3.5-5.1); Sodium 133 mmol/L (137-145); Total Bilirubin 0.5 mg/dL (0.2-1.3); Total Protein 5.9 g/dL (6.3-8.2)
[2021-01-13] MEDS: CEFEPIME 2 GM in SODIUM CHLORIDE 0.9% 100 ML IVPB SCH ×3 (04:43→19:18)
[2021-01-13] MEDS: MORPHINE SULFATE 4 MG/ML SYRINGE IV PRN ×2 (04:43→08:35)
[2021-01-13] MEDS: ENOXAPARIN 40 MG/0.4 ML SYRINGE SQ SCH (08:35)
[2021-01-13] MEDS: SODIUM CHLORIDE 0.9% 1,000 ML IV SCH ×2 (08:38→20:31)
--- NOTE | 2021-01-13 08:54 | XR ---
EXAMINATION TYPE: XR chest 2V DATE OF EXAM: 01/13/2021 COMPARISON: 01/12/2021 TECHNIQUE: PA and lateral views submitted. HISTORY: Shortness of breath FINDINGS: She bilateral infiltrates with more localized consolidation the right lower lobe with small effusion. On heart size stable. Arthropathy of the shoulders and postsurgical change in the left. Biapical ple ural thickening. Hypertrophic degenerative change of the spine. IMPRESSION: 1. Patchy bilateral infiltrate with small right effusion.
[2021-01-13] MEDS ORDERED: ONDANSETRON 4 MG TAB PO PRN (10:17)
[2021-01-13] MEDS: IPRATROPIUM-ALBUTEROL 3 ML NEB INHALATION SCH ×5 (11:17→23:30)
[2021-01-13] MEDS: FORMOTEROL FUMARATE 20 MCG/2 ML NEBU INHALATION SCH ×2 (11:17→19:31)
--- NOTE | 2021-01-13 13:58 | P.CNPUL ---
History of Present Illness Consult date: 01/13/21 Reason for consult: dyspnea History of present illness: This is a 70-year-old male patient is coming in for worsening shortness of breath. 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 He was diagnosed having lung cancer back in the year 1999 and the patient was found to have an endobronchial tumor in the distal right mainstem and the patient's had a biopsy via bronchoscopy that was done on 04/19/2020 and a diagnosis was consis tent with carcinoma. Staging PET scan at that time was done and the patient also had mediastinal lymphadenopathy involving the retrograde vertebral, pretracheal and right hilar and subcarinal areas. The patient was not showing back then any signs of metastases. He was started on radiation therapy that was completed the mono test on 05/12/2020 and the patient was started also on chemotherapy and received carboplatin and Taxol combination and he received a total of 7 cycles and he completed systemic chemotherapy on 07/16/2020. The patient also completed radiation therapy on 06/30/2020. Post treatment, there was some radiation changes involving the right hilar area. He was started on immunotherapy with Imfinzi . however during this time, the patient developed a right-sided pleural effusion. Thus far deficiency undergone a total of 2 thoracentesis of the pleural fluid was negative for malignancy. Last thoracentesis was done on 12/22/2020 with a total of 1.2 L of pleural fluid was aspirated. The patient is coming in to the emergency department because of worsening shortness of breath. His white cell count is a family. Renal function is stable at creatinine of 0.6. Sodium is 133. Overnight his testing was negative. The CAT scan was repeated today in the emergency department and there was no evidence of any pulmonary embolism. The patient was found to have a right-sided pleural effusion which is essentially stable. The patient also had bilateral groundglass pulmonary infiltrates and had increased compared to the prior CAT scan from 12/21/2020, ainly in the right upper lobe and less left upper lobe. He has not taken Imfimzi for the past 1 month Review of Systems Constitutional: Reports fatigue, Reports lethargy, Reports weakness Eyes: denies as per HPI, denies blurred vision, denies bulging eye, denies decreased vision, denies diplopia, denies discharge, denies dry eye, denies irritation, denies itching, denies pain, denies photophobia, denies loss of peripheral vision, denies loss of vision, denies tunnel vision/blind spots Ears: deny: decreased hearing, ear discharge, earache, tinnitus Ears, nose, mouth and throat: Reports as per HPI Breasts: absent: as per HPI, gynecomastia Cardiovascular: Reports decreased exercise tolerance, Reports dyspnea on exertion, Reports leg edema Respiratory: Reports dyspnea Gastrointestinal: Reports as per HPI Genitourinary: Reports as per HPI Musculoskeletal: Reports as per HPI Musculoskeletal: left: ankle swelling, absent: ankle pain, ankle stiffness Integumentary: Reports as per HPI Neurological: Reports as per HPI Psychiatric: Reports as per HPI Endocrine: Reports as per HPI Hematologic/Lymphatic: Reports as per HPI Allergic/Immunologic: Reports as per HPI Past Medical History Past Medical History: Cancer, Chest Pain / Angina, Heart Failure, COPD, Hypertension, Myocardial Infarction ([place]), Skin Disorder Additional Past Medical History / Comment(s): chronic back pain, [place] spring 2015; pt has history of PVD with LLE cellulitis, states he had vascular surgery to improve healing, lung CA, had chemo and radiation now getting immunotherapy Last Myocardial Infarction Date:: 2015 History of Any Multi-Drug Resistant Organisms: MRSA Date of last positivie culture/infection: 06/25/17 MDRO Source:: LEFT LEG Past Surgical History: Heart Catheterization With Stent, Hernia Repair, Orthopedic Surgery Additional Past Surgical History / Comment(s): left femur ORIF 40 years ago, left leg bypass; two stents placed in November 2019, hernia repair 2019 Past Anesthesia/Blood Transfusion Reactions: No Reported Reaction Date of Last Stent Placement:: November 2019 Past Psychological History: Anxiety Smoking Status: Former smoker Past Alcohol Use History: Heavy Past Drug Use History: None Reported - Past Family History Father Additional Family Medical History / Comment(s): lung cancer Brother(s) Additional Family Medical History / Comment(s): lung cancer Medications and Allergies Home Medications Medication Instructions Recorded Confirmed Type Aspirin [Adult Low Dose Aspirin EC] 81 mg PO DAILY 11/11/17 01/12/21 History Albuterol Sulfate [Proair Hfa] 2 puff INHALATION RT-Q6H PRN 12/05/20 01/12/21 History Ondansetron [Zofran] 4 mg PO Q6H PRN 12/05/20 01/12/21 History carvediloL [Coreg*] 12.5 mg PO BID 12/05/20 01/12/21 History oxyCODONE-APAP 10-325MG [Percocet 1 tab PO Q6HR PRN 12/05/20 01/12/21 History 10-325 mg] Formoterol Fumarate [Perforomist] 20 mcg INHALATION RT-BID 12/21/20 01/12/21 History Benzonatate [Tessalon Perles] 100 mg PO QID PRN 01/12/21 01/12/21 History Furosemide [Lasix] 20 mg PO DAILY 01/12/21 01/12/21 History Ipratropium-Albuterol Nebulize 3 ml INHALATION RT-Q6H PRN 01/12/21 01/12/21 History [Duoneb 0.5 mg-3 mg/3 ml Soln] Morphine Sulfate ER [Ms Contin] 15 mg PO BID PRN 01/12/21 01/12/21 History Multivit-Min/Folic/Vit K/Lycop 1 tab PO DAILY 01/12/21 01/12/21 History [Men's Multivitamin Tablet] Potassium Chloride [Klor-Con 20] 20 meq PO DAILY 01/12/21 01/12/21 History guaiFENesin [Mucinex] 1,200 mg PO Q12HR PRN 01/12/21 01/12/21 History Allergies Allergy/AdvReac Type Severity Reaction Status Date / Time No Known Allergies Allergy Verified 01/12/21 14:39 Physical Exam Vitals: Vital Signs Temp Pulse Resp BP Pulse Ox 01/13/21 11:28 96 01/13/21 11:18 94 01/13/21 07:52 100 01/13/21 07:40 100 01/13/21 07:20 100.5 F H 103 H 20 132/68 94 L 01/13/21 06:20 108 H 22 130/69 91 L 01/13/21 04:50 102 H 20 144/82 92 L 01/13/21 02:00 102 H 20 142/87 93 L 01/13/21 00:09 91 L 01/13/21 00:06 114 H 20 150/87 87 L 01/12/21 22:05 99 20 159/89 95 01/12/21 19:41 98.2 F 69 20 153/81 100 01/12/21 18:08 98.6 F 95 18 128/64 95 01/12/21 16:01 98 01/12/21 15:50 98 01/12/21 15:22 100.7 F H 01/12/21 15:11 18 01/12/21 14:36 99.5 F 101 H 18 151/78 85 L GENERAL EXAM: Alert, pleasant, 69-year-old white male, on 3 L of oxygen with pulse ox of 100% comfortable in no apparent distress. HEAD: Normocephalic/atraumatic. EYES: Normal reaction of pupils, equal size. Conjunctiva pink, sclera white. NOSE: Clear with pink turbinates. THROAT: No erythema or exudates. NECK: No masses, no JVD, no thyroid enlargement, no adenopathy. CHEST: No chest wall deformity. Symmetrical expansion. LUNGS: Equal air entry with diffuse wheezes CVS: Regular rate and rhythm, normal S1 and S2, no gallops, no murmurs, no rubs ABDOMEN: Soft, nontender. No hepatosplenomegaly, normal bowel sounds, no guarding or rigidity. EXTREMITIES: No clubbing, no edema, no cyanosis, 2+ pulses and upper and lower extremities. MUSCULOSKELETAL: Muscle strength and tone normal. SPINE: No scoliosis or deformity SKIN: No rashes CENTRAL NERVOUS SYSTEM: Alert and oriented -3. No focal deficits, tone is normal in all 4 extremities. PSYCHIATRIC: Alert and oriented -3. Appropriate affect. Intact judgment and insight. Results - Laboratory Findings CBC and BMP: 01/13/21 02:15 01/13/21 02:15 ABG WBC 10.2 k/uL (3.8-10.6) 01/13/21 02:15 RBC 4.23 m/uL (4.30-5.90) L 01/13/21 02:15 Hgb 12.2 gm/dL (13.0-17.5) L 01/13/21 02:15 Hct 38.3 % (39.0-53.0) L 01/13/21 02:15 MCV 90.6 fL (80.0-100.0) 01/13/21 02:15 MCH 28.9 pg (25.0-35.0) 01/13/21 02:15 MCHC 31.9 g/dL (31.0-37.0) 01/13/21 02:15 RDW 16.8 % (11.5-15.5) H 01/13/21 02:15 Plt Count 227 k/uL (150-450) 01/13/21 02:15 MPV 7.1 01/13/21 02:15 Neutrophils % 93 % 01/13/21 02:15 Lymphocytes % 2 % 01/13/21 02:15 Monocytes % 2 % 01/13/21 02:15 Eosinophils % 1 % 01/13/21 02:15 Basophils % 0 % 01/13/21 02:15 Neutrophils # 9.5 k/uL (1.3-7.7) H 01/13/21 02:15 Lymphocytes # 0.2 k/uL (1.0-4.8) L 01/13/21 02:15 Monocytes # 0.2 k/uL (0-1.0) 01/13/21 02:15 Eosinophils # 0.1 k/uL (0-0.7) 01/13/21 02:15 Basophils # 0.0 k/uL (0-0.2) 01/13/21 02:15 Hypochromasia Moderate 01/13/21 02:15 Anisocytosis Slight 01/13/21 02:15 PT 9.4 sec (9.0-12.0) 01/12/21 16:24 INR 0.9 (<1.2) 01/12/21 16:24 APTT 25.0 sec (22.0-30.0) 01/12/21 16:24 D-Dimer 1.17 mg/L FEU (<0.60) H 01/12/21 16:24 Sodium 133 mmol/L (137-145) L 01/13/21 02:15 Potassium 4.4 mmol/L (3.5-5.1) 01/13/21 02:15 Chloride 101 mmol/L (98-107) 01/13/21 02:15 Carbon Dioxide 23 mmol/L (22-30) 01/13/21 02:15 Anion Gap 9 mmol/L 01/13/21 02:15 BUN 11 mg/dL (9-20) 01/13/21 02:15 Creatinine 0.65 mg/dL (0.66-1.25) L 01/13/21 02:15 Est GFR (CKD-EPI)AfAm >90 (>60 ml/min/1.73 sqM) 01/13/21 02:15 Est GFR (CKD-EPI)NonAf >90 (>60 ml/min/1.73 sqM) 01/13/21 02:15 Glucose 109 mg/dL (74-99) H 01/13/21 02:15 Plasma Lactic Acid Elder 1.1 mmol/L (0.7-2.0) 01/12/21 16:24 Calcium 8.3 mg/dL (8.4-10.2) L 01/13/21 02:15 Phosphorus 3.0 mg/dL (2.5-4.5) 01/13/21 02:15 Magnesium 2.1 mg/dL (1.6-2.3) 01/13/21 02:15 Total Bilirubin 0.5 mg/dL (0.2-1.3) 01/13/21 02:15 AST 28 U/L (17-59) 01/13/21 02:15 ALT 16 U/L (4-49) 01/13/21 02:15 Alkaline Phosphatase 162 U/L (38-126) H 01/13/21 02:15 Troponin I 0.031 ng/mL (0.000-0.034) 01/13/21 02:15 Total Protein 5.9 g/dL (6.3-8.2) L 01/13/21 02:15 Albumin 3.3 g/dL (3.5-5.0) L 01/13/21 02:15 Urine Color Yellow 01/12/21 22:36 Urine Appearance Clear (Clear) 01/12/21 22:36 Urine pH 8.0 (5.0-8.0) 01/12/21 22:36 Ur Specific [place] 1.042 (1.001-1.035) H 01/12/21 22:36 Urine Protein Trace (Negative) H 01/12/21 22:36 Urine Glucose (UA) Negative (Negative) 01/12/21 22:36 Urine Ketones 1+ (Negative) H 01/12/21 22:36 Urine Blood Negative (Negative) 01/12/21 22:36 Urine Nitrite Negative (Negative) 01/12/21 22:36 Urine Bilirubin Negative (Negative) 01/12/21 22:36 Urine Urobilinogen <2.0 mg/dL (<2.0) 01/12/21 22:36 Ur Leukocyte Esterase Negative (Negative) 01/12/21 22:36 Coronavirus (PCR) Not Detected (Not Detectd) 01/12/21 16:24 PT/INR, D-dimer PT 9.4 sec (9.0-12.0) 01/12/21 16:24 INR 0.9 (<1.2) 01/12/21 16:24 D-Dimer 1.17 mg/L FEU (<0.60) H 01/12/21 16:24 Abnormal lab findings: Abnormal Labs 01/12/21 01/12/21 01/12/21 16:24 16:24 16:24 RBC 4.18 L Hgb 11.9 L Hct 37.5 L RDW 17.3 H Neutrophils # Lymphocytes # 0.3 L D-Dimer 1.17 H Sodium 133 L Creatinine 0.62 L Glucose 110 H Calcium Alkaline Phosphatase 147 H Total Protein 5.8 L Albumin 3.3 L Ur Specific [place] Urine Protein Urine Ketones 01/12/21 01/13/21 01/13/21 22:36 02:15 02:15 RBC 4.23 L Hgb 12.2 L Hct 38.3 L RDW 16.8 H Neutrophils # 9.5 H Lymphocytes # 0.2 L D-Dimer Sodium 133 L Creatinine 0.65 L Glucose 109 H Calcium 8.3 L Alkaline Phosphatase 162 H Total Protein 5.9 L Albumin 3.3 L Ur Specific [place] 1.042 H Urine Protein Trace H Urine Ketones 1+ H - Diagnostic Findings Chest x-ray: image reviewed CT scan - chest: image reviewed Assessment and Plan Plan: 1 acute hypoxic respiratory failure with worsening shortness of breath and bilateral groundglass pulmonary infiltrates involving the right upper lobe and left upper lobe. 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 Consider infectious pneumonitis. Consider cancer progression 2 history of non-small cell lung cancer, squamous cell carcinoma, stage 3 had a time of diagnosis, post chemoradiation therapy, recurrent, treated with immunotherapy that was subsequently discontinued because of concern of pneumonitis 3 COPD 4 artery disease with previous stent placement, 5 hypertension 6. peripheral vascular disease with chronic left lower extremity swelling 7 chronic back pain Plan Admit this patient to the hospital. Oxygen supplementation DuoNeb neb last treatment [id number] IV Solu-Medrol for possibility of pneumonitis, drug induced IV cefepime and Zithromax as an empiric antibiotic coverage Lovenox for DVT prophylaxis Doppler of the left lower extremity to rule out DVT Oncology consultation Bronchoscopy and transbronchial biopsy as no improvement in the pulmonary infiltrates and/or interval worsening. We'll follow
[2021-01-13] MEDS: oxyCODONE-APAP 10-325MG 1 EACH TAB PO PRN (14:24)
[2021-01-13] MEDS: carvediloL 12.5 MG TAB PO SCH ×2 (14:25→20:31)
[2021-01-13] MEDS: MULTIVITAMINS, THERA 1 EACH TAB PO SCH (14:25)
[2021-01-13] MEDS: ASPIRIN 81 MG PO SCH (14:25)
[2021-01-13] MEDS: methylPREDNISolone SOD SUCCI 125 MG/2 ML VIAL IV SCH ×3 (14:26→23:39)
--- NOTE | 2021-01-13 16:04 | US ---
EXAMINATION TYPE: US venous doppler duplex LE DATE OF EXAM: 01/13/2021 2:26 PM COMPARISON: NONE CLINICAL HISTORY: rule out DVt. SOB, patient on blood thinners. SIDE PERFORMED: Bilateral TECHNIQUE: The lower extremity deep venous system is examined utilizing real time linear array sonog brandee with graded compression, doppler sonography and color-flow sonography. VESSELS IMAGED: Common Femoral Vein Deep Femoral Vein Greater Saphenous Vein * Femoral Vein Popliteal Vein Small Saphenous Vein * Proximal Calf Veins (* superficial vessels) Right Leg: Negative for DVT Left Leg: Evidence of chronic DVT FV mid, there is stranding with partial compression. No evidence o f acute DVT. IMPRESSION: 1. There is eccentric thrombus within the left common femoral vein. Although acute DVT not entirely e xcluded a chronic DVT is favored.
[2021-01-13] MEDS: AZITHROMYCIN 500 MG TAB PO SCH ×2 (16:56→19:18)
[2021-01-13] MEDS: MORPHINE SULFATE ER 15 MG TABLET PO PRN (19:18)
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
--- NOTE | 2021-01-13 20:56 | P.CONS ---
History of Present Illness - Reason for Consult Consult date: 01/13/21 Hypoxia - Chief Complaint SOB - History of Present Illness Mr Matias is a pleasant white male, initially seen in consult at [facility] on 04/20/20. The patient had presented with cough productive of whitish to yellowish sputum about 2 weeks prior admission. He was hospitalized at [facility] from 04/11-04/13/20 and treated with antibiotics. He had initial improvement but then developed rapid recurrence of symptoms after discharge. He was on oral antibiotics as an outpatient without much improvement. He therefore came back to the hospital with CTA of the chest pe rformed to rule out PE. This was negative for the same but showed bilateral pneumonia more prominent in the right lower lobe, as well as evidence of central right lung mass and massive mediastinal and hilar adenopathy. He was therefore transferred to [facility]. The patient had a bronchoscopy on 04/19/20 that showed a large tumor involving the sera, cauliflower in shape. Right side was more involved than the left. Left sided bronchi were able to be visualized but right middle and lower lobe bronchi were occluded by the sera tumor. 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 The patient improved with steroids, and antibiotics and was able to be discharged. He had an outpatient PET scan on 04/30/20 that showed uptake in retrograde vertebral, and pretracheal adenopathy, right hilar nodes, and subcarinal nodes. Groundglass opacities present through much of the right upper lobe which showed associated uptake with patchy areas. There is some nodularity in the right middle lobe and only mild uptake in one of the peripheral nodules. There is no evidence of any distant metastatic disease. Postoperative changes of the left hip a lytic lucency in the proximal right humerus were noted, without any associated uptake. He was seen for his first office visit on 05/13/20. He was started on radiation at [facility] on 05/12/20. He started concurrent chemoRT with weekly Carbo/Taxol on 05/17/20. He is s/p 7 cycles completing those on 06/28/20, and RT on 06/30/[address] scans in 08/14 showed partial response. the patient had umbilical hernia surgery on 10/26/20. He called the office subsequently complaining of increasing shortness of breath. Chest x-ray showed increasing right middle and lower lobe opacification. The patient was given a course of antibiotics. CT showed increased RLL opacity, with air bronchograms. A pleural effusion was seen. Immunotherapy was held and he had a thoracentesis on 12/09/20. Cytology was negative He was rechallenged with immunotherapy on 12/19/20, but was admitted to [facility] on 12/21/20 wth recurrent SOB. He had repeat thoracentesis for recurrent pleural effusion ( 1.4 L) with cytology negative. He imoproved with steroids, updrafts and antibiotics, and was discharged on the same. He completed antibiotic after about a week, He is still on a prednisone taper. He denied any f/n/v. He reprots recurrent SOB since the past day. He also c/o feeling cold. he has not had any recorded fevers. Swallowing is normal. His appetite is diminished. His BP has been low and he stopped his BP medications. energy level was recovering well, but has declined. He has a mild cough occasionally. His pain control is satisfactory. His ROS is otherwise as per HPI and negative out of 10 Was doing fairly well after discharge from hospital but has deteriorated acutely over the past 1-2 days. He reports increased shortness of breath, fatigue, and chills. On examination it did not appear that there was clinically any major recurrence of his pleural effusion. CBC was essentially normal other than hemoglobin in the 11 range. - At this time concern is for recurrent pneumonia as well as PE as the major differentials. Other causes not ruled out. The patient was not felt to be stable enough to send home as his oxygen saturation of 76% and heart rate was greater than 100. He was therefore directed to go to the ER immediately. The case was discussed in detail with the ER physician. He will have additional investigations including CTA on arrival. He also completed Imfinzi in November therefore must conssider immune related effects such as pneumonitis. The patient also had bilateral groundglass pulmonary infiltrates and had increased compared to the prior CAT scan from 12/21/2020, mainly in the right upper lobe and less left upper lobe. He has not taken Imfimzi for the past 1 month although due to the extended half life of these medications may present immune related effects up to 6 months. Past Medical History Past Medical History: Cancer, Chest Pain / Angina, Heart Failure, COPD, Hypertension, Myocardial Infarction ([place]), Skin Disorder Additional Past Medical History / Comment(s): chronic back pain, [place] spring 2015; pt has history of PVD with LLE cellulitis, states he had vascular surgery to improve healing, lung CA, had chemo and radiation now getting immunotherapy Last Myocardial Infarction Date:: 2015 History of Any Multi-Drug Resistant Organisms: MRSA Year Discovered:: 06/25/17 MDRO Source:: LEFT LEG Past Surgical History: Heart Catheterization With Stent, Hernia Repair, Orthopedic Surgery Additional Past Surgical History / Comment(s): left femur ORIF 40 years ago, left leg bypass; two stents placed in November 2019, hernia repair 2019 Past Anesthesia/Blood Transfusion Reactions: No Reported Reaction Date of Last Stent Placement:: November 2019 Past Psychological History: Anxiety Smoking Status: Former smoker Past Alcohol Use History: Heavy Past Drug Use History: None Reported - Past Family History Father Additional Family Medical History / Comment(s): lung cancer Brother(s) Additional Family Medical History / Comment(s): lung cancer Medications and Allergies Home Medications Medication Instructions Recorded Confirmed Type Aspirin [Adult Low Dose Aspirin EC] 81 mg PO DAILY 11/11/17 01/12/21 History Albuterol Sulfate [Proair Hfa] 2 puff INHALATION RT-Q6H PRN 12/05/20 01/12/21 History Ondansetron [Zofran] 4 mg PO Q6H PRN 12/05/20 01/12/21 History carvediloL [Coreg*] 12.5 mg PO BID 12/05/20 01/12/21 History oxyCODONE-APAP 10-325MG [Percocet 1 tab PO Q6HR PRN 12/05/20 01/12/21 History 10-325 mg] Formoterol Fumarate [Perforomist] 20 mcg INHALATION RT-BID 12/21/20 01/12/21 History Benzonatate [Tessalon Perles] 100 mg PO QID PRN 01/12/21 01/12/21 History Furosemide [Lasix] 20 mg PO DAILY 01/12/21 01/12/21 History Ipratropium-Albuterol Nebulize 3 ml INHALATION RT-Q6H PRN 01/12/21 01/12/21 History [Duoneb 0.5 mg-3 mg/3 ml Soln] Morphine Sulfate ER [Ms Contin] 15 mg PO BID PRN 01/12/21 01/12/21 History Multivit-Min/Folic/Vit K/Lycop 1 tab PO DAILY 01/12/21 01/12/21 History [Men's Multivitamin Tablet] Potassium Chloride [Klor-Con 20] 20 meq PO DAILY 01/12/21 01/12/21 History guaiFENesin [Mucinex] 1,200 mg PO Q12HR PRN 01/12/21 01/12/21 History Allergies Allergy/AdvReac Type Severity Reaction Status Date / Time No Known Allergies Allergy Verified 01/12/21 14:39 Physical Exam Vitals: Vital Signs Temp Pulse Resp BP Pulse Ox 01/13/21 07:52 100 01/13/21 07:40 100 01/13/21 07:20 100.5 F H 103 H 20 132/68 94 L 01/13/21 06:20 108 H 22 130/69 91 L 01/13/21 04:50 102 H 20 144/82 92 L 01/13/21 02:00 102 H 20 142/87 93 L 01/13/21 00:09 91 L 01/13/21 00:06 114 H 20 150/87 87 L 01/12/21 22:05 99 20 159/89 95 01/12/21 19:41 98.2 F 69 20 153/81 100 01/12/21 18:08 98.6 F 95 18 128/64 95 01/12/21 16:01 98 01/12/21 15:50 98 01/12/21 15:22 100.7 F H 01/12/21 15:11 18 01/12/21 14:36 99.5 F 101 H 18 151/78 85 L - Constitutional General appearance: cooperative, no acute distress - EENT Eyes: EOMI, PERRLA ENT: normal oropharynx - Neck Neck: normal ROM - Respiratory Respiratory: bilateral: rhonchi - Cardiovascular Rhythm: regularly irregular - Gastrointestinal General gastrointestinal: normal bowel sounds, soft - Integumentary Integumentary: pale - Neurologic Neurologic: CNII-XII intact - Musculoskeletal Musculoskeletal: gait normal, generalized weakness - Psychiatric Psychiatric: A&O x's 3, appropriate affect, intact judgment & insight Results CBC & Chem 7: 01/13/21 02:15 01/13/21 02:15 Labs: Abnormal Lab Results - Last 24 Hours (Table) 01/12/21 01/12/21 01/12/21 Range/Units 16:24 16:24 16:24 RBC 4.18 L (4.30-5.90) m/uL Hgb 11.9 L (13.0-17.5) gm/dL Hct 37.5 L (39.0-53.0) % RDW 17.3 H (11.5-15.5) % Neutrophils # (1.3-7.7) k/uL Lymphocytes # 0.3 L (1.0-4.8) k/uL D-Dimer 1.17 H (<0.60) mg/L FEU Sodium 133 L (137-145) mmol/L Creatinine 0.62 L (0.66-1.25) mg/dL Glucose 110 H (74-99) mg/dL Calcium (8.4-10.2) mg/dL Alkaline Phosphatase 147 H (38-126) U/L Total Protein 5.8 L (6.3-8.2) g/dL Albumin 3.3 L (3.5-5.0) g/dL Ur Specific [place] (1.001-1.035) Urine Protein (Negative) Urine Ketones (Negative) 01/12/21 01/13/21 01/13/21 Range/Units 22:36 02:15 02:15 RBC 4.23 L (4.30-5.90) m/uL Hgb 12.2 L (13.0-17.5) gm/dL Hct 38.3 L (39.0-53.0) % RDW 16.8 H (11.5-15.5) % Neutrophils # 9.5 H (1.3-7.7) k/uL Lymphocytes # 0.2 L (1.0-4.8) k/uL D-Dimer (<0.60) mg/L FEU Sodium 133 L (137-145) mmol/L Creatinine 0.65 L (0.66-1.25) mg/dL Glucose 109 H (74-99) mg/dL Calcium 8.3 L (8.4-10.2) mg/dL Alkaline Phosphatase 162 H (38-126) U/L Total Protein 5.9 L (6.3-8.2) g/dL Albumin 3.3 L (3.5-5.0) g/dL Ur Specific [place] 1.042 H (1.001-1.035) Urine Protein Trace H (Negative) Urine Ketones 1+ H (Negative) CT scan - chest: report reviewed Assessment and Plan Plan: Assessment and Plan (1) COPD (chronic obstructive pulmonary disease) Status: Acute Priority: High Code(s): J44.9 - CHRONIC OBSTRUCTIVE PULMONARY DISEASE, UNSPECIFIED SNOMED Code(s): 26549056 (2) Non-small cell cancer of right lung Status: Chronic Priority: Medium Code(s): C34.91 - MALIGNANT NEOPLASM OF UNSP PART OF RIGHT BRONCHUS OR LUNG SNOMED Code(s): 732325623 Assessment and Plan: Acute Hypoxic Respiratory FailureL - CTA reviewed revealing with worsening bilateral groundglass pulmonary infiltrates worse on the right upper lobe and left upper lobe. - Immune therapy related effects within the differential, despite the completion 5 weeks prior, immune therapy extended half life would be resonable to consider this in differential along with potential pneumonia. - Management per Pulmonary, Dr. Brumfield is following. Non-Small Cell-Lung CA (squamous cell carcinoma) - Status Post chemoradiation and immunotherapy that was subsequently discontinued approximately 5 weeks ago for concern of pneumonitis COPD Exacerbation: - Per Pulmonary Team Plan - Pulmonary is planning repeat Bronchoscopy as pulmonary infiltrates and/or interval worsening. - Continue Steroids and PPI - COntinue to hold Immune therapy Doctor attests: I performed a history and physical examination of this patient, developed impression and plan of care, discussed with dictator. I agree with dictators note, documented as a scribe.
[2021-01-14] MEDS: IPRATROPIUM-ALBUTEROL 3 ML NEB INHALATION SCH ×6 (03:59→23:04)
[2021-01-14] MEDS: CEFEPIME 2 GM in SODIUM CHLORIDE 0.9% 100 ML IVPB SCH ×3 (04:30→19:52)
[2021-01-14] MEDS: MORPHINE SULFATE ER 15 MG TABLET PO PRN ×2 (04:30→17:09)
[2021-01-14] MEDS: SODIUM CHLORIDE 0.9% 1,000 ML IV SCH ×3 (04:31→23:58)
[2021-01-14] MEDS: methylPREDNISolone SOD SUCCI 125 MG/2 ML VIAL IV SCH ×3 (06:04→17:10)
[2021-01-14] MEDS: ENOXAPARIN 40 MG/0.4 ML SYRINGE SQ SCH (09:03)
[2021-01-14] MEDS: ASPIRIN 81 MG PO SCH (09:03)
[2021-01-14] MEDS: oxyCODONE-APAP 10-325MG 1 EACH TAB PO PRN ×2 (09:03→20:18)
[2021-01-14] MEDS: MULTIVITAMINS, THERA 1 EACH TAB PO SCH (09:03)
[2021-01-14] MEDS: carvediloL 12.5 MG TAB PO SCH ×2 (09:03→19:51)
[2021-01-14] MEDS: FORMOTEROL FUMARATE 20 MCG/2 ML NEBU INHALATION SCH ×2 (09:05→19:24)
--- NOTE | 2021-01-14 10:54 | P.PN ---
Subjective Progress Note Date: 01/14/21 This is a 70-year-old male patient is coming in for worsening shortness of breath. 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 He was diagnosed having lung cancer back in the year 1999 and the patient was found to have an endobronchial tumor in the distal right mainstem and the patient's had a biopsy via bronchoscopy that was done on 04/19/2020 and a diagnosis was consistent with carcinoma. Staging PET scan at that time was done and the patient also had mediastinal lymphadenopathy involving the retrograde vertebral, pretracheal and right hilar and subcarinal areas. The patient was not showing back then any signs of metastases. He was started on radiation therapy that was completed the mono test on 05/12/2020 and the patient was started also on chemotherapy and received carboplatin and Taxol combination and he received a total of 7 cycles and he completed systemic chemotherapy on 07/16/2020. The patient also completed radiation therapy on 06/30/2020. Post treatment, there was some radiation changes involving the right hilar area. He was started on immunotherapy with Imfinzi . however during this time, the patient developed a right-sided pleural effusion. Thus far deficiency undergone a total of 2 thoracentesis of the pleural fluid was negative for malignancy. Last thoracentesis was done on 12/22/2020 with a total of 1.2 L of pleural fluid was aspirated. The patient is coming in to the emergency department because of worsening shortness of breath. His white cell count is a family. Renal function is stable at creatinine of 0.6. Sodium is 133. Overnight his testing was negative. The CAT scan was repeated today in the emergency department and there was no evidence of any pulmonary embolism. The patient was found to have a right-sided pleural effusion which is essentially stable. The patient also had bilateral groundglass pulmonary infiltrates and had increased compared to the prior CAT scan from 12/21/2020, ainly in the right upper lobe and less left upper lobe. He has not taken Imfimzi for the past 1 month Evaluation of 01/14/2021, I'm seeing the patient for a follow-up. Slightly improved compared to yesterday. He remains on bronchodilators and steroids. Ultrasound the left lower extremity showed an extensive thrombus within the left common femoral vein and this is likely a chronic thrombus from a previous traumatic injury to the left leg. He has chronic swelling in the left leg. No evidence of any acute DVT. No fever. No chills. Blood work essentially unchanged compared to yesterday and there is no significant leukocytosis. Blood cultures been negative. Objective - Vital Signs Vital signs: Vital Signs Temp 97.9 F 01/14/21 08:00 Pulse 82 01/14/21 09:27 Resp 20 01/14/21 08:00 BP 155/78 01/14/21 08:00 Pulse Ox 94 L 01/14/21 09:06 Intake & Output 01/13/21 01/14/21 01/14/21 18:59 06:59 18:59 Weight 92.079 kg Other: Voiding Method Urinal Urinal # Voids 3 - Exam GENERAL EXAM: Alert, pleasant, 69-year-old white male, on 3 L of oxygen with pulse ox of 100% comfortable in no apparent distress. HEAD: Normocephalic/atraumatic. EYES: Normal reaction of pupils, equal size. Conjunctiva pink, sclera white. NOSE: Clear with pink turbinates. THROAT: No erythema or exudates. NECK: No masses, no JVD, no thyroid enlargement, no adenopathy. CHEST: No chest wall deformity. Symmetrical expansion. LUNGS: Equal air entry with diffuse wheezes CVS: Regular rate and rhythm, normal S1 and S2, no gallops, no murmurs, no rubs ABDOMEN: Soft, nontender. No hepatosplenomegaly, normal bowel sounds, no guarding or rigidity. EXTREMITIES: No clubbing, no edema, no cyanosis, 2+ pulses and upper and lower extremities. MUSCULOSKELETAL: Muscle strength and tone normal. SPINE: No scoliosis or deformity SKIN: No rashes CENTRAL NERVOUS SYSTEM: Alert and oriented -3. No focal deficits, tone is normal in all 4 extremities. PSYCHIATRIC: Alert and oriented -3. Appropriate affect. Intact judgment and insight. - Labs CBC & Chem 7: 01/13/21 02:15 01/13/21 02:15 Labs: Abnormal Lab Results - Last 24 Hours (Table) 01/13/21 Range/Units 02:15 Procalcitonin 0.21 H (0.02-0.09) ng/mL Microbiology - Last 24 Hours (Table) 01/12/21 16:41 Blood Culture - Final Blood 01/12/21 16:41 Blood Culture - Preliminary Blood No Growth after 24 hours Assessment and Plan Plan: 1 acute hypoxic respiratory failure with worsening shortness of breath and bilateral groundglass pulmonary infiltrates involving the right upper lobe and left upper lobe. 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 Consider infectious pneumonitis. Consider cancer progression so developed a moderate- sized right-sided pleural effusion which is a recurrent problem and the patient has undergone or centesis 2 with a negative pleural fluid cytology. Nevertheless, the decompensating fact that the groundglass changes in the upper lobes which is probably drug-induced pneumonitis versus infection. 2 history of non-small cell lung cancer, squamous cell carcinoma, stage 3 had a time of diagnosis, post chemoradiation therapy, recurrent, treated with immunotherapy that was subsequently discontinued because of concern of pneumonitis 3 COPD 4 coronary artery disease with previous stent placement, 5 hypertension 6. 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 Plan Oxygen supplementation, currently on 3 L of oxygen by nasal cannula DuoNeb neb last treatment [id number] IV Solu-Medrol for possibility of pneumonitis, drug induced IV cefepime and Zithromax as an empiric antibiotic coverage Lovenox for DVT prophylaxis Clinically slightly improved compared to yesterday. We'll consider another thoracentesis of the patient continues to BE short of breath. As for the lower extremity DVT, this is of a chronic in nature and warrants no immediate anticoagulation. Oncology consultation Bronchoscopy and transbronchial biopsy as no improvement in the pulmonary infiltrates and/or interval worsening. We'll follow
--- NOTE | 2021-01-14 16:45 | ECHOF ---
Referral Reason:CHF MEASUREMENTS -------- HEIGHT: 177.8 cm WEIGHT: 92.1 kg BP: 101/56 IVSd: 1.7 cm (0.6 - 1.1) LVIDd: 3.6 cm (3.9 - 5.3) LVPWd: 1.8 cm (0.6 - 1.1) EDV(Teich): 53 ml IVSs: 1.8 cm LVIDs: 2.7 cm LVPWs: 2.2 cm %IVS Thck: 7 % ESV(Teich): 26 ml EF(Teich): 51 % %FS: 25 % SV(Teich): 27 ml LVOT Diam: 2.2 cm IVC: 16.18 mm LALs A4C: 5.9 cm LAAs A4C: 22.7 cm LAESV A-L A4C: 74 ml LAESV MOD A4C: 70 ml LALs A2C: 6.1 cm LAAs A2C: 31.9 cm LAESV A-L A2C: 141 ml LAESV MOD A2C: 134 ml LAESV(A-L): 104 ml LAESV Index (A-L): 49.59 ml/m Ao Diam: 4.2 cm (2.0 - 3.7) LA Diam: 3.2 cm (2.7 - 3.8) AV Cusp: 1.7 cm (1.5 - 2.6) EPSS: 2.8 cm MV E Scott: 0.97 m/s MV DecT: 192 ms MV Dec Edgar: 5.1 m/s MV A Scott: 1.20 m/s MV E/A Ratio: 0.81 MV PHT: 56 ms MR Vmax: 3.27 m/s MR maxP.82 mmHg LVOT Vmax: 0.95 m/s LVOT maxP.59 mmHg AV Vmax: 1.98 m/s AV maxP.60 mmHg ZACHARIAH Vmax, Pt: 1.9 cm AV Vmax: 2.10 m/s AV Vmean: 1.29 m/s AV maxP.70 mmHg AV meanP.04 mmHg AV Env.Ti: 341 ms AV VTI: 44.2 cm ZACHARIAH Vmax, Pt: 1.7 cm AR Vmax: 3.87 m/s AR maxP.81 mmHg AR PHT: 243 ms AR Dec Time: 838 ms AR Dec Edgar: 4.6 m/s TR Vmax: 2.06 m/s TR maxP.93 mmHg RAP: 5.00 mmHg RVSP: 21.93 mmHg MV EF SLOPE: 110.67 mm/s (70 - 150) MV EXCURSION: 21.87 mm (> 18.000) FINDINGS -------- This was a technically good study. The left ventricular size is normal. There is moderate concentric left ventricular hypertrophy. O verall left ventricular systolic function is mildly impaired with, an EF between 45 - 50 %. Increas ed LAP Grade 2 Diastolic Dysfunction. The right ventricle is normal in size. LA is severely dilated >40 ml/m2 The right atrial size is normal. Aortic valve is trileaflet and is mildly thickened. There is mild aortic regurgitation. There is mild aortic stenosis present. Peak/mean gradient across the Aortic Valve is 17.70mmHg / 8.04mmHg. The mitral valve is normal. Mild mitral regurgitation is present. The tricuspid valve appears structurally normal. No regurgitation noted Right ventricular systoli c pressure is normal at < 35 mmHg. The aortic root is dilated measuring 4.2 CM There is no pericardial effusion. CONCLUSIONS -------- 1. The left ventricular size is normal. 2. There is moderate concentric left ventricular hypertrophy. 3. Overall left ventricular systolic function is mildly impaired with, an EF between 45 - 50 %. 4. Increased LAP Grade 2 Diastolic Dysfunction. 5. LA is severely dilated >40 ml/m2 6. Aortic valve is trileaflet and is mildly thickened. 7. There is mild aortic regurgitation. 8. There is mild aortic stenosis present. 9. Peak/mean gradient across the Aortic Valve is 17.70mmHg / 8.04mmHg. 10. Mild mitral regurgitation is present. 11. No regurgitation noted 12. The aortic root is dilated measuring 4.2 CM 13. There is no pericardial effusion. HUMAN SERVICES ASSISTANT: Autumn Moulton [facility]
[2021-01-14] MEDS: AZITHROMYCIN 500 MG TAB PO SCH (19:51)
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
[2021-01-14] MEDS: RIVAROXABAN 2.5 MG TABLET PO SCH (23:47)
[2021-01-14] MEDS: methylPREDNISolone SOD SUCCI 40 MG/ML 1 ML VIAL IV SCH (23:48)
[2021-01-15] MEDS: oxyCODONE-APAP 10-325MG 1 EACH TAB PO PRN ×4 (01:52→20:55)
[2021-01-15] MEDS: IPRATROPIUM-ALBUTEROL 3 ML NEB INHALATION SCH ×5 (03:21→19:45)
[2021-01-15] MEDS: CEFEPIME 2 GM in SODIUM CHLORIDE 0.9% 100 ML IVPB SCH ×3 (04:18→20:52)
[2021-01-15] MEDS: MORPHINE SULFATE ER 15 MG TABLET PO PRN (05:08)
[2021-01-15] MEDS: FORMOTEROL FUMARATE 20 MCG/2 ML NEBU INHALATION SCH ×2 (08:10→19:45)
[2021-01-15] MEDS: RIVAROXABAN 2.5 MG TABLET PO SCH ×2 (08:48→20:53)
[2021-01-15] MEDS: carvediloL 12.5 MG TAB PO SCH ×2 (08:49→20:53)
[2021-01-15] MEDS: ASPIRIN 81 MG PO SCH (08:49)
[2021-01-15] MEDS: MULTIVITAMINS, THERA 1 EACH TAB PO SCH (08:49)
[2021-01-15] MEDS: methylPREDNISolone SOD SUCCI 40 MG/ML 1 ML VIAL IV SCH ×2 (08:49→17:26)
[2021-01-15] MEDS ORDERED: VANCOMYCIN IV PER PHARMACY 1 EACH MISC MISCELLANE PRN (11:37)
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
[2021-01-15] MEDS ORDERED: VANCOMYCIN 1,750 MG in SODIUM CHLORIDE 0.9% 500 ML 500 ML IVPB ONE (12:30)
[2021-01-15] MEDS ORDERED: SENNOSIDES 8.6 MG TAB PO PRN (13:05)
[2021-01-15] MEDS: SODIUM CHLORIDE 0.9% 1,000 ML IV SCH ×2 (13:24→20:52)
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
[2021-01-15] MEDS ORDERED: polyethylene glycoL 3350 17 GM POWD.PACK PO STA (17:45)
[2021-01-15] MEDS ORDERED: VANCOMYCIN 1,500 MG in SODIUM CHLORIDE 0.9% 250 ML IVPB SCH (20:00)
[2021-01-16] MEDS: methylPREDNISolone SOD SUCCI 40 MG/ML 1 ML VIAL IV SCH ×3 (00:10→15:49)
[2021-01-16] MEDS: VANCOMYCIN 1,500 MG in SODIUM CHLORIDE 0.9% 250 ML IVPB SCH ×3 (00:10→15:49)
[2021-01-16] MEDS ORDERED: FUROSEMIDE 10 MG/ML 4 ML VIAL IV STA ×2 (00:56→11:44)
[2021-01-16] MEDS ORDERED: LORazepam 2 MG/ML INJ IV STA (01:05)
[2021-01-16] MEDS ORDERED: MORPHINE SULFATE 2 MG/ML SYRINGE IVP STA (01:26)
[2021-01-16] MEDS: IPRATROPIUM-ALBUTEROL 3 ML NEB INHALATION SCH ×7 (01:33→23:22)
--- NOTE | 2021-01-16 01:43 | XR ---
EXAMINATION TYPE: XR chest 1V portable DATE OF EXAM: 01/16/2021 COMPARISON: 01/13/2021 HISTORY: Respiratory distress TECHNIQUE: Single view FINDINGS: There is extensive pulmonary interstitial and airspace edema. Heart is enlarged. Pulmonary vascularity is difficult to evaluate. There is blunting right costophrenic angle. IMPRESSION: Severe pulmonary edema. This appears increased compared to recent exam. This could be RDS or worsening congestive heart failure.
[2021-01-16] MEDS: AZITHROMYCIN 500 MG in SODIUM CHLORIDE 0.9% 250 ML IVPB SCH (01:57)
--- NOTE | 2021-01-16 02:15 | P.EN ---
A team note patient with lung cancer on chemoradiotherapy admitted for difficulty breathing suspected to have pneumonia , blood culture positive for Gram positive cocci A team activated for sudden worsening in breathing with respiratory distress, profuse sweating, hypoxemia in the mid 60s% for pulse ox. patient became confused and combative. quick assessment revealed diminished breath sounds throughout, elevated SBP in the 180s to 190s, hypoxemia, tachypnea , and respiratory distress. with impeding respiratory failure . assessment acute hypoxic respiratory failure multifactorial CXR stat showed increased patchy opacities and pulmonary edema , with stable right pleural effusion , suggestive picture of ARDS LVEF 45-50% afebrile , no leukocytosis plan IV lasix 40 mg once Bipap ativan to help tolerate bipap supplemental oxygen as needed to keep oxygen sat >92% added Azithromycin to his current cefepime and vanco , to broaden coverage to atypical pneumonia give breathing treatment with duo neb continue current treatment plan for thoracentesis in AM patient tolerated intervention well, and calmed down, oxygen sat now stable in the mid 90s, he is breathing more comfortably patient will remain on 4 [place] for now I spent 32 minutes delivering critical care service not counting procedure time .
[2021-01-16] MEDS: CEFEPIME 2 GM in SODIUM CHLORIDE 0.9% 100 ML IVPB SCH ×3 (04:28→20:02)
[2021-01-16] MEDS: SODIUM CHLORIDE 0.9% 1,000 ML IV SCH ×2 (05:05→16:46)
[2021-01-16 06:15] LABS: Anisocytosis Slight; Basophils % (A) 0 %; Eosinophils % (A) 0 %; HCT 37.7 % (39.0-53.0); HGB 11.5 gm/dL (13.0-17.5); Hypochromasia Moderate; Lymphocytes # (A) 0.3 k/uL (1.0-4.8); Lymphocytes % (A) 2 %; MCH 27.8 pg (25.0-35.0); MCHC 30.4 g/dL (31.0-37.0); MCV 91.5 fL (80.0-100.0); Mean Platelet Volume 7.4; Monocytes # (A) 0.4 k/uL (0-1.0); Monocytes % (A) 3 %; Neutrophils # (A) 11.8 k/uL (1.3-7.7); Neutrophils % (A) 94 %; Platelet Count 253 k/uL (150-450); RBC 4.12 m/uL (4.30-5.90); RDW 16.8 % (11.5-15.5); WBC 12.5 k/uL (3.8-10.6)
[2021-01-16 06:33] LABS: African American GFR (CKD) >90 (>60 ml/min/1.73 sqM); Anion Gap 9 mmol/L; Blood Urea Nitrogen 24 mg/dL (9-20); Calcium 8.7 mg/dL (8.4-10.2); Carbon Dioxide 22 mmol/L (22-30); Chloride 107 mmol/L (98-107); Glucose 160 mg/dL (74-99); Non-African American GFR(CKD) >90 (>60 ml/min/1.73 sqM); Potassium 4.3 mmol/L (3.5-5.1); Sodium 138 mmol/L (137-145)
[2021-01-16] MEDS: FORMOTEROL FUMARATE 20 MCG/2 ML NEBU INHALATION SCH ×2 (07:19→19:42)
[2021-01-16] MEDS: carvediloL 12.5 MG TAB PO SCH ×2 (08:10→20:01)
[2021-01-16] MEDS: ASPIRIN 81 MG PO SCH (08:10)
[2021-01-16] MEDS: oxyCODONE-APAP 10-325MG 1 EACH TAB PO PRN ×2 (08:10→16:32)
[2021-01-16] MEDS: MULTIVITAMINS, THERA 1 EACH TAB PO SCH (08:11)
[2021-01-16] MEDS: RIVAROXABAN 2.5 MG TABLET PO SCH ×2 (09:32→20:02)
[2021-01-16] MEDS: MORPHINE SULFATE ER 15 MG TABLET PO PRN (11:34)
--- NOTE | 2021-01-16 12:01 | P.PCN ---
Date of Procedure: 01/16/21 Preoperative Diagnosis: right sided pleural effusion Postoperative Diagnosis: right sided pleural effusion Procedure(s) Performed: Thoracentesis-right sided Anesthesia: local Surgeon: Hannah Brumfield Estimated Blood Loss (ml): 0 Pathology: other Condition: stable Disposition: same day Operative Findings: Indication: Pleural effusion. A time-out was completed verifying correct patient, procedure, site, positioning, and implant (s) or special equipment if applicable. Ultrasound guidance not used and appropriate fluid pocket was identified and marked. Patient was positioned, prepped and draped in usual sterile fashion. Lidocaine was used to anesthetize the area. A Thoracentesis catheter was introduced into the pleural space and fluid was removed. Blood loss was none. A chest x-ray was ordered to evaluate for pneumothorax. Total Fluid Removed: 1800cc Color of Fluid: Turbid, yellow Fluid was sent for appropriate laboratory tests. Patient tolerated the procedure well and there were no complications.
--- NOTE | 2021-01-16 12:25 | XR ---
EXAMINATION TYPE: XR chest 1V portable DATE OF EXAM: 01/16/2021 Comparison: 01/16/2021 Clinical History: 70-year-old male post right thoracentesis Findings: Heart remains enlarged. Bilateral airspace disease persists but has become slightly less confluent. A fter right-sided thoracentesis, the right effusion has improved. No appreciable pneumothorax. Bilater al full-thickness chronic rotator cuff tears. Impression: 1. Continued cardiomegaly and bilateral diffuse airspace disease though slightly less confluence sugg esting some improvement. 2. Improvement in the patient's right pleural effusion following thoracentesis. No appreciable pneumo thorax.
--- NOTE | 2021-01-16 14:20 | P.PN ---
Subjective Progress Note Date: 01/16/21 Principal diagnosis: Hypoxia In follow-up patient is still on BiPAP, he is pending intervention by Pulmonary today. He states that he does still better than last night-patient did have a respiratory event-he is currently denying difficulty in breathing at rest but, minimal activity does cause him distress. Objective - Vital Signs Vital signs: Vital Signs Temp 97.7 F 01/16/21 07:44 Pulse 86 01/16/21 12:16 Resp 23 01/16/21 07:44 BP 160/67 01/16/21 07:44 Pulse Ox 97 01/16/21 07:44 Intake & Output 01/15/21 01/16/21 01/16/21 18:59 06:59 18:59 Intake Total 1550 3300 Output Total 1800 Balance 1550 1500 Intake: Intake, IV Titration 1550 3300 Amount Azithromycin 500 mg In 500 Sodium Chloride 0.9% 250 ml @ 250 mls/hr IVPB Q24H MARAL Rx#:[id number] Cefepime 2 gm In Sodium 100 100 Chloride 0.9% 100 ml @ 25 mls/hr IVPB Q8H MARAL Rx#: [id number] Sodium Chloride 0.9% 1, 1200 1200 000 ml @ 100 mls/hr IV . Q10H MARAL Rx#:[id number] Vancomycin 1,500 mg In 250 Sodium Chloride 0.9% 250 ml @ 125 mls/hr IVPB Q8H MARAL Rx#:[id number] Vancomycin 1,500 mg In 1500 Sodium Chloride 0.9% 250 ml @ 125 mls/hr IVPB Q8H MARAL Rx#:[id number] Output: Urine 1800 Other: Voiding Method Urinal # Bowel Movements 1 - Constitutional General appearance: Present: average body habitus, cooperative, mild distress - EENT Eyes: Present: anicteric sclerae, EOMI ENT: Present: hearing grossly normal - Respiratory Respiratory: right: diminished (lower 2/3), bilateral: rales (bibasilar) - Cardiovascular Rhythm: regular Heart sounds: normal: S1, S2 Abnormal Heart Sounds: Absent: systolic murmur, diastolic murmur, rub, S3 Gallop, S4 Gallop, click, other - Gastrointestinal General gastrointestinal: Present: normal bowel sounds, soft - Integumentary Integumentary: Present: normal - Neurologic Neurologic: Present: CNII-XII intact - Musculoskeletal Musculoskeletal: Present: strength equal bilaterally - Psychiatric Psychiatric: Present: A&O x's 3, appropriate affect, intact judgment & insight - Labs CBC & Chem 7: 01/16/21 05:45 01/16/21 05:45 Labs: Abnormal Lab Results - Last 24 Hours (Table) 01/16/21 01/16/21 Range/Units 05:45 05:45 WBC 12.5 H (3.8-10.6) k/uL RBC 4.12 L (4.30-5.90) m/uL Hgb 11.5 L (13.0-17.5) gm/dL Hct 37.7 L (39.0-53.0) % MCHC 30.4 L (31.0-37.0) g/dL RDW 16.8 H (11.5-15.5) % Neutrophils # 11.8 H (1.3-7.7) k/uL Lymphocytes # 0.3 L (1.0-4.8) k/uL BUN 24 H (9-20) mg/dL Creatinine 0.65 L (0.66-1.25) mg/dL Glucose 160 H (74-99) mg/dL Microbiology - Last 24 Hours (Table) 01/15/21 11:48 Blood Culture - Preliminary Blood No Growth after 24 hours 01/12/21 16:41 Blood Culture Gram Stain - Final Blood Blood Culture - Final Micrococcus species 01/12/21 16:41 Blood Culture - Preliminary Blood No Growth after 72 hours - Imaging and Cardiology Chest x-ray: report reviewed Assessment and Plan (1) Hypoxia Narrative/Plan: Secondary to pleural effusion Current Visit: Yes Status: Acute Priority: High Code(s): R09.02 - HYPOXEMIA SNOMED Code(s): 779994817 (2) Pleural effusion Narrative/Plan: Pulmonary intervention today Current Visit: Yes Status: Acute Priority: High Code(s): J90 - PLEURAL EFFUSION, NOT ELSEWHERE CLASSIFIED SNOMED Code(s): 71774698 (3) Non-small cell cancer of right lung Narrative/Plan: Treatment held back in November for 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 Patient is back on Solu-Medrol 40 every 8 for the same. He may require prednisone taper on DC. Follow-up with his primary Oncologist. Current Visit: No Status: Chronic Priority: Medium Code(s): C34.91 - MALIGNANT NEOPLASM OF UNSP PART OF RIGHT BRONCHUS OR LUNG SNOMED Code(s): 966209056 Plan: Chronic DVT of the left lower extremity, on Xarelto
--- NOTE | 2021-01-16 15:16 | CDI ---
Documentation Clarification Form Date: 01/16/2021 02:46:55 PM From: Kelsie Lerma RN CCDS Admit Date: 01/12/2021 10:02:00 PM Patient Name: Joe Matias Visit Number: [id number] Discharge Date: ATTENTION: The Clinical Documentation Specialists (CDI) and [facility] Coding Staff appreciate your assistance in clarifying documentation. Please respond to the clarification below the line at the bottom and electronically sign. The CDI & [facility] Coding staff will review the response and follow-up if needed. Please note: Queries are made part of the Legal Health Record. If you have any questions, please contact the author of this message via ITS. Dr. Fer Sr Your patient has the documented diagnosis of unspecified CHF, 01/13 H&P and 01/14, 01/15, Medicine progress notes. Additional information regarding the type, acuity of CHF is requested. History/Risk Factors: 70-year-old male presents to ED with increasing shortness of breath. Medical History: CHF, Lung cancer and Pleural effusions. 01/13, H&P. Clinical Indicators: VS/Pulse OX: 01/16 02:30 B/P 131/86; HR 90; Temp 97.9 F Oral; RR 23; SpO2 97% BiPAP Echocardiogram Results: EF 45-50%; LA severely dilated >40ml/m2; Aortic valve is trileaflet and mildly thickened. Mild aortic regurgitation. Mild aortic stenosis. Mild mitral regurgitation. Chest X Ray: 01/16 Severe pulmonary edema. This appears increased compared to recent exam. Treatment: 01/13 to current Coreg 12.5mg PO BID MARAL; 01/16 00:56 Lasix 40mg IV x 1; 01/16 11:44 Lasix 40mg IV x 1. In your professional opinion, can you please clarify the acuity and type of CHF if known? [ ] Chronic Systolic Heart Failure (reduced EF) [ ] Acute on Chronic Systolic Heart Failure (reduced EF) [ ] Chronic Diastolic Heart Failure (preserved EF) [ ] Acute on Chronic Diastolic Heart Failure (preserved EF) [ ] Chronic Systolic & Diastolic Heart Failure [ ] Acute on Chronic Heart Failure Systolic & Diastolic Heart Failure [ ] Other, please specify [ ] Unable to determine (Template Last Revised: June 2020) chronic congestive heart failure from diastolic ( EF 45-50%) dysfunction. MTDD
[2021-01-16 15:39] LABS: Appearance,BF Hazy; Color,BF Yellow; Nucleated Cells, Body Fluid 137 /uL; RBC, Body Fluid 983 /uL
[2021-01-16 15:40] LABS: Mononuclear WBC,Body Fluid 81 %; Polynuclear WBC,Body Fluid 19 %; Total Cells Counted,Body Fluid 100
--- NOTE | 2021-01-16 16:36 | P.PN ---
Subjective Progress Note Date: 01/16/21 This is a 70-year-old male patient is coming in for worsening shortness of breath. 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 He was diagnosed having lung cancer back in the year 1999 and the patient was found to have an endobronchial tumor in the distal right mainstem and the patient's had a biopsy via bronchoscopy that was done on 04/19/2020 and a diagnosis was consistent with carcinoma. Staging PET scan at that time was done and the patient also had mediastinal lymphadenopathy involving the retrograde vertebral, pretracheal and right hilar and subcarinal areas. The patient was not showing back then any signs of metastases. He was started on radiation therapy that was completed the mono test on 05/12/2020 and the patient was started also on chemotherapy and received carboplatin and Taxol combination and he received a total of 7 cycles and he completed systemic chemotherapy on 07/16/2020. The patient also completed radiation therapy on 06/30/2020. Post treatment, there was some radiation changes involving the right hilar area. He was started on immunotherapy with Imfinzi . however during this time, the patient developed a right-sided pleural effusion. Thus far deficiency undergone a total of 2 thoracentesis of the pleural fluid was negative for malignancy. Last thoracentesis was done on 12/22/2020 with a total of 1.2 L of pleural fluid was aspirated. The patient is coming in to the emergency department because of worsening shortness of breath. His white cell count is a family. Renal function is stable at creatinine of 0.6. Sodium is 133. Overnight his testing was negative. The CAT scan was repeated today in the emergency department and there was no evidence of any pulmonary embolism. The patient was found to have a right-sided pleural effusion which is essentially stable. The patient also had bilateral groundglass pulmonary infiltrates and had increased compared to the prior CAT scan from 12/21/2020, ainly in the right upper lobe and less left upper lobe. He has not taken Imfimzi for the past 1 month Evaluation of 01/14/2021, I'm seeing the patient for a follow-up. Slightly improved compared to yesterday. He remains on bronchodilators and steroids. Ultrasound the left lower extremity showed an extensive thrombus within the left common femoral vein and this is likely a chronic thrombus from a previous traumatic injury to the left leg. He has chronic swelling in the left leg. No evidence of any acute DVT. No fever. No chills. Blood work essentially unchanged compared to yesterday and there is no significant leukocytosis. Blood cultures been negative. 01/15/2021, the patient remains symptomatic. He remains on bronchodilators and steroids. As mentioned earlier, the patient has some groundglass inflammatory changes in the upper lobes, chronic scarring in the right hilar area related to previous radiation therapy and a recurrent right-sided pleural effusion. Furthermore, the blood culture was positive for gram-positive cocci 2 out of 3 cultures. He is afebrile. He is hemodynamically stable. He is on IV cefepime. 01/16/2021, the patient is being seen in as of midnight, the patient's history is as decompensated and the patient became progressively more short of breath and hypoxic. At one point, the A team was called to the scene. I give the patient 40 mg IV Lasix and the patient made excellent urine output. The chest if it was done at that time showed development of acute pulmonary edema. There was also a right lower lobe pleural effusion. The patient was tried on high flow oxygen and so ultimately was switched to 100% nonrebreather facemask. On today's evaluation, the patient was to short of breath. I did a bedside thoracentesis with a total of 1.8 L of pleural fluid was aspirated from the right lung. We are in the process of gradually weaning this patient's FiO2. Another dose of Lasix 40 g IV will be given. He remains on broad-spectrum antibiotics. He remains on steroids. He remains on a combination of cefepime and Zithromax and vancomycin. He is also on IV Solu-Medrol 40 mg every 8 hours. The white cell count is at 12.5. Hemoglobin is 11.5. The pro-calcitonin level is at 0.22. BUN is at 24 with a creatinine of 0.6. Objective - Vital Signs Vital signs: Vital Signs Temp 97.9 F 01/16/21 14:00 Pulse 89 01/16/21 16:09 Resp 20 01/16/21 14:00 BP 151/73 01/16/21 14:00 Pulse Ox 94 L 01/16/21 14:00 Intake & Output 01/15/21 01/16/21 01/16/21 18:59 06:59 18:59 Intake Total 1550 3300 Output Total 1800 2400 Balance 1550 1500 -2400 Intake: Intake, IV Titration 1550 3300 Amount Azithromycin 500 mg In 500 Sodium Chloride 0.9% 250 ml @ 250 mls/hr IVPB Q24H MARAL Rx#:[id number] Cefepime 2 gm In Sodium 100 100 Chloride 0.9% 100 ml @ 25 mls/hr IVPB Q8H MARAL Rx#: [id number] Sodium Chloride 0.9% 1, 1200 1200 000 ml @ 100 mls/hr IV . Q10H MARAL Rx#:[id number] Vancomycin 1,500 mg In 250 Sodium Chloride 0.9% 250 ml @ 125 mls/hr IVPB Q8H MARAL Rx#:[id number] Vancomycin 1,500 mg In 1500 Sodium Chloride 0.9% 250 ml @ 125 mls/hr IVPB Q8H MARAL Rx#:[id number] Output: Urine 1800 2400 Other: Voiding Method Urinal # Bowel Movements 1 - Exam GENERAL EXAM: Alert, pleasant, 69-year-old white male, breathing is labored as the patient is currently on 100% nonrebreather facemask HEAD: Normocephalic/atraumatic. EYES: Normal reaction of pupils, equal size. Conjunctiva pink, sclera white. NOSE: Clear with pink turbinates. THROAT: No erythema or exudates. NECK: No masses, no JVD, no thyroid enlargement, no adenopathy. CHEST: No chest wall deformity. Symmetrical expansion. LUNGS: Equal air entry with diffuse wheezes CVS: Regular rate and rhythm, normal S1 and S2, no gallops, no murmurs, no rubs ABDOMEN: Soft, nontender. No hepatosplenomegaly, normal bowel sounds, no guarding or rigidity. EXTREMITIES: No clubbing, no edema, no cyanosis, 2+ pulses and upper and lower extremities. MUSCULOSKELETAL: Muscle strength and tone normal. SPINE: No scoliosis or deformity SKIN: No rashes CENTRAL NERVOUS SYSTEM: Alert and oriented -3. No focal deficits, tone is normal in all 4 extremities. PSYCHIATRIC: Alert and oriented -3. Appropriate affect. Intact judgment and insight. - Labs CBC & Chem 7: 01/16/21 05:45 01/16/21 05:45 Labs: Abnormal Lab Results - Last 24 Hours (Table) 01/16/21 01/16/21 Range/Units 05:45 05:45 WBC 12.5 H (3.8-10.6) k/uL RBC 4.12 L (4.30-5.90) m/uL Hgb 11.5 L (13.0-17.5) gm/dL Hct 37.7 L (39.0-53.0) % MCHC 30.4 L (31.0-37.0) g/dL RDW 16.8 H (11.5-15.5) % Neutrophils # 11.8 H (1.3-7.7) k/uL Lymphocytes # 0.3 L (1.0-4.8) k/uL BUN 24 H (9-20) mg/dL Creatinine 0.65 L (0.66-1.25) mg/dL Glucose 160 H (74-99) mg/dL Microbiology - Last 24 Hours (Table) 01/15/21 11:48 Blood Culture - Preliminary Blood No Growth after 24 hours 01/12/21 16:41 Blood Culture Gram Stain - Final Blood Blood Culture - Final Micrococcus species 01/12/21 16:41 Blood Culture - Preliminary Blood No Growth after 72 hours Assessment and Plan Plan: 1 acute hypoxic respiratory failure with worsening shortness of breath and bilateral groundglass pulmonary infiltrates involving the right upper lobe and left upper lobe. 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 Consider infectious pneumonitis. Consider cancer progression so developed a moderate- sized right-sided pleural effusion which is a recurrent problem and the patient has undergone or centesis 2 with a negative pleural fluid cytology. Nevertheless, the decompensating fact that the groundglass changes in the upper lobes which is probably drug-induced pneumonitis versus infection. Over the past 24 hours and especially overnight, the patient decompensated and subsequent chest x-ray showed development of an acute pulmonary edema with diffuse but the pulmonary infiltrates. The patient improved with Lasix. Furthermore, bedside thoracentesis was done without a total of 1.8 L of pleural fluid was aspirated from the right lung. Currently is on the percent on a beta facemask. A second dose of Lasix was given. 2 history of non-small cell lung cancer, squamous cell carcinoma, stage 3 had a time of diagnosis, post chemoradiation therapy, recurrent, treated with immunotherapy that was subsequently discontinued because of concern of pneumonitis 3 COPD 4 coronary artery disease with previous stent placement, 5 hypertension 6. 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 10 gram-positive cocci in the blood 2 out of 3. The patient is currently on IV cefepime. Vancomycin will be added empirically and 2 more sets of blood cultures will be sent. Note that one of the cultures showed micrococcus and the other one is still pending for now. Plan Acute bilateral pulmonary infiltrate development with subsequent hypoxic respiratory failure. Rule out pulmonary edema. Rule out ARDS. Covered with broad-spectrum antibiotics. Covered with diuretics. Covered with steroids. Thoracentesis of the right lung was done with evacuation of 1.8 L of pleural fluid. The fluid will be sent for analysis. We'll wean the FiO2 if possible. Currently in the 100% on a beta facemask. Becca lopez last treatment [id number] IV Solu-Medrol for possibility of pneumonitis, drug induced IV cefepime and vancomycin Lovenox for DVT prophylaxis Thoracentesis completed We'll continue to follow.
[2021-01-16] MEDS: FUROSEMIDE 10 MG/ML 2 ML VIAL IV SCH (20:01)
[2021-01-17] MEDS: VANCOMYCIN 1,500 MG in SODIUM CHLORIDE 0.9% 250 ML IVPB SCH ×2 (00:10→08:05)
[2021-01-17] MEDS: methylPREDNISolone SOD SUCCI 40 MG/ML 1 ML VIAL IV SCH ×4 (00:10→23:53)
[2021-01-17] MEDS: oxyCODONE-APAP 10-325MG 1 EACH TAB PO PRN ×3 (00:11→17:19)
[2021-01-17] MEDS: AZITHROMYCIN 500 MG in SODIUM CHLORIDE 0.9% 250 ML IVPB SCH (03:15)
[2021-01-17] MEDS: SODIUM CHLORIDE 0.9% 1,000 ML IV SCH ×3 (03:15→21:41)
[2021-01-17] MEDS: MORPHINE SULFATE ER 15 MG TABLET PO PRN ×2 (03:19→21:41)
[2021-01-17] MEDS: CEFEPIME 2 GM in SODIUM CHLORIDE 0.9% 100 ML IVPB SCH ×3 (03:22→21:40)
[2021-01-17] MEDS: IPRATROPIUM-ALBUTEROL 3 ML NEB INHALATION SCH ×6 (04:05→23:10)
[2021-01-17 04:22] LABS: Glucose, BF Source Pleural Fluid; Glucose, Body Fluid 153 mg/dL; LDH, Body Fluid Source Pleural Fluid; Total Protein, Body Fluid 2034 mg/dL
[2021-01-17] MEDS ORDERED: VANCOMYCIN TROUGH DUE 1 EACH MISC MISCELLANE ONE (07:00)
[2021-01-17] MEDS: RIVAROXABAN 2.5 MG TABLET PO SCH ×2 (08:04→21:41)
[2021-01-17] MEDS: MULTIVITAMINS, THERA 1 EACH TAB PO SCH (08:04)
[2021-01-17] MEDS: FUROSEMIDE 10 MG/ML 2 ML VIAL IV SCH ×2 (08:05→21:40)
[2021-01-17] MEDS: ASPIRIN 81 MG PO SCH (08:05)
[2021-01-17] MEDS: carvediloL 12.5 MG TAB PO SCH ×2 (08:05→21:40)
[2021-01-17] MEDS: FORMOTEROL FUMARATE 20 MCG/2 ML NEBU INHALATION SCH ×2 (08:30→19:02)
--- NOTE | 2021-01-17 09:29 | XR ---
EXAMINATION TYPE: XR chest 1V portable DATE OF EXAM: 01/17/2021 COMPARISON: Chest x-ray 01/16/2021 HISTORY: Dyspnea, shortness of breath TECHNIQUE: Single frontal view of the chest is obtained. FINDINGS: Interstitium is increased, there is likely mixed airspace disease as on prior exam. No laura dent pneumothorax or pleural effusion. Cardiac mediastinal silhouette is likely stable. IMPRESSION: Correlate for pneumonia, edema
--- NOTE | 2021-01-17 13:03 | P.PN ---
Subjective Progress Note Date: 01/17/21 Principal diagnosis: Acute hypoxic rest she failure, immunotherapy induced pneumonitis This is a 70-year-old male patient is coming in for worsening shortness of breath. 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 He was diagnosed having lung cancer back in the year 1999 and the patient was found to have an endobronchial tumor in the distal right mainstem and the patient's had a biopsy via bronchoscopy that was done on 04/19/2020 and a diagnosis was consistent with carcinoma. Staging PET scan at that time was done and the patient also had mediastinal lymphadenopathy involving the retrograde vertebral, pretracheal and right hilar and subcarinal areas. The patient was not showing back then any signs of metastases. He was started on radiation therapy that was completed the mono test on 05/12/2020 and the patient was started also on chemotherapy and received carboplatin and Taxol combination and he received a total of 7 cycles and he completed systemic chemotherapy on 07/16/2020. The patient also completed radiation therapy on 06/30/2020. Post treatment, there was some radiation changes involving the right hilar area. He was started on immunotherapy with Imfinzi . however during this time, the patient developed a right-sided pleural effusion. Thus far deficiency undergone a total of 2 thoracentesis of the pleural fluid was negative for malignancy. Last thoracentesis was done on 12/22/2020 with a total of 1.2 L of pleural fluid was aspirated. The patient is coming in to the emergency department because of worsening shortness of breath. His white cell count is a family. Renal function is stable at creatinine of 0.6. Sodium is 133. Overnight his testing was negative. The CAT scan was repeated today in the emergency department and there was no evidence of any pulmonary embolism. The patient was found to have a right-sided pleural effusion which is essentially stable. The patient also had bilateral groundglass pulmonary infiltrates and had increased compared to the prior CAT scan from 12/21/2020, ainly in the right upper lobe and less left upper lobe. He has not taken Imfimzi for the past 1 month Evaluation of 01/14/2021, I'm seeing the patient for a follow-up. Slightly improved compared to yesterday. He remains on bronchodilators and steroids. Ultrasound the left lower extremity showed an extensive thrombus within the left common femoral vein and this is likely a chronic thrombus from a previous traumatic injury to the left leg. He has chronic swelling in the left leg. No evidence of any acute DVT. No fever. No chills. Blood work essentially unchanged compared to yesterday and there is no significant leukocytosis. Blood cultures been negative. 01/15/2021, the patient remains symptomatic. He remains on bronchodilators and steroids. As mentioned earlier, the patient has some groundglass inflammatory changes in the upper lobes, chronic scarring in the right hilar area related to previous radiation therapy and a recurrent right-sided pleural effusion. Furthermore, the blood culture was positive for gram-positive cocci 2 out of 3 cultures. He is afebrile. He is hemodynamically stable. He is on IV cefepime. 01/16/2021, the patient is being seen in as of midnight, the patient's history is as decompensated and the patient became progressively more short of breath and hypoxic. At one point, the A team was called to the scene. I give the patient 40 mg IV Lasix and the patient made excellent urine output. The chest if it was done at that time showed development of acute pulmonary edema. There was also a right lower lobe pleural effusion. The patient was tried on high flow oxygen and so ultimately was switched to 100% nonrebreather facemask. On today's evaluation, the patient was to short of breath. I did a bedside thoracentesis with a total of 1.8 L of pleural fluid was aspirated from the right lung. We are in the process of gradually weaning this patient's FiO2. A nother dose of Lasix 40 g IV will be given. He remains on broad-spectrum antibiotics. He remains on steroids. He remains on a combination of cefepime and Zithromax and vancomycin. He is also on IV Solu-Medrol 40 mg every 8 hours. The white cell count is at 12.5. Hemoglobin is 11.5. The pro-calcitonin level is at 0.22. BUN is at 24 with a creatinine of 0.6. On 01/17/2021 patient is awake and alert, in no acute distress, breathing has significantly improved in response to diuretics. He is given 2 doses of IV diuretics yesterday, and he was started on maintenance dose of IV Lasix 20 mg every 12 hours. He is in -5.5 L net fluid balance over the last 24 hours. Today's chest x-ray showing increased interstitial, possible mixed airspace disease, no evident pneumothorax or pleural effusion. Vision patient has improved, and patient did not require BiPAP support overnight. His had no fever or chills, his pleural fluid cultures remain negative thus far. Labs are pending for today. She remains on azithromycin, and cefepime. Remains on IV Solu-Medrol 40 mg every 8 hours, no hemoptysis, no significant phlegm production. Objective - Vital Signs Vital signs: Vital Signs Temp 98.6 F 01/17/21 07:59 Pulse 80 01/17/21 11:50 Resp 20 01/17/21 07:59 BP 163/77 01/17/21 07:59 Pulse Ox 97 01/17/21 08:34 Intake & Output 01/16/21 01/17/21 01/17/21 18:59 06:59 18:59 Output Total 3700 1800 1500 Balance -3700 -1800 -1500 Output: Urine 3700 1800 1500 Other: Voiding Method Urinal - Exam GENERAL EXAM: Alert, very pleasant, 70-year-old white male, 5 L of oxygen a pulse ox of 97%, comfortable in no apparent distress. HEAD: Normocephalic/atraumatic. EYES: Normal reaction of pupils, equal size. Conjunctiva pink, sclera white. NOSE: Clear with pink turbinates. THROAT: No erythema or exudates. NECK: No masses, no JVD, no thyroid enlargement, no adenopathy. CHEST: No chest wall deformity. Symmetrical expansion. LUNGS: Equal air entry with bilateral crackles CVS: Regular rate and rhythm, normal S1 and S2, no gallops, no murmurs, no rubs ABDOMEN: Soft, nontender. No hepatosplenomegaly, normal bowel sounds, no guarding or rigidity. EXTREMITIES: No clubbing, no edema, no cyanosis, 2+ pulses and upper and lower extremities. MUSCULOSKELETAL: Muscle strength and tone normal. SPINE: No scoliosis or deformity SKIN: No rashes CENTRAL NERVOUS SYSTEM: Alert and oriented -3. No focal deficits, tone is normal in all 4 extremities. PSYCHIATRIC: Alert and oriented -3. Appropriate affect. Intact judgment and insight. - Labs CBC & Chem 7: 01/16/21 05:45 01/16/21 05:45 Labs: Microbiology - Last 24 Hours (Table) 01/16/21 11:57 Gram Stain - Preliminary Pleural Fluid Body Fluid Culture - Preliminary 01/12/21 16:41 Blood Culture - Preliminary Blood No Growth after 96 hours 01/16/21 11:57 Acid Fast Bacilli Culture - Preliminary Pleural Fluid 01/16/21 11:57 Fungal Culture - Preliminary Pleural Fluid 01/15/21 11:48 Blood Culture - Preliminary Blood No Growth after 24 hours 01/12/21 16:41 Blood Culture Gram Stain - Final Blood Blood Culture - Final Micrococcus species Assessment and Plan Plan: 1 acute hypoxic respiratory failure with worsening shortness of breath and bilateral groundglass pulmonary infiltrates involving the right upper lobe and left upper lobe. 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 Consider infectious pneumonitis. Consider cancer progression so developed a moderate- sized right-sided pleural effusion which is a recurrent problem and the patient has undergone or centesis 2 with a negative pleural fluid cytology. Nevertheless, the decompensating fact that the groundglass changes in the upper lobes which is probably drug-induced pneumonitis versus infection. Over the past 24 hours and especially overnight, the patient decompensated and subsequent chest x-ray showed development of an acute pulmonary edema with diffuse but the pulmonary infiltrates. The patient improved with Lasix. Furthermore, bedside thoracentesis was done without a total of 1.8 L of pleural fluid was aspirated from the right lung. Currently is on the percent on a beta facemask. A second dose of Lasix was given. 2 history of non-small cell lung cancer, squamous cell carcinoma, stage 3 had a time of diagnosis, post chemoradiation therapy, recurrent, treated with immunotherapy that was subsequently discontinued because of concern of pneumonitis 3 COPD 4 coronary artery disease with previous stent placement, 5 hypertension 6. 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 10 gram-positive cocci in the blood 2 out of 3. The patient is currently on IV cefepime. Vancomycin will be added empirically and 2 more sets of blood cultures will be sent. Note that one of the cultures showed micrococcus and the other one is still pending for now. Plan: Continue weaning FiO2 Patient is responding to diuretics, and oxygenation has improved Did not require BiPAP support last night So far pleural fluid cultures remain negative No fever or chills, continue current antibiotics Continue current dose IV diuretics Follow-up labs, electrolytes and renal profile tomorrow Keep nothing by mouth after midnight for possibility of bronchoscopy with BAL tomorrow Time with Patient: Less than 30
--- NOTE | 2021-01-17 16:17 | P.PN ---
Subjective Progress Note Date: 01/17/21 Principal diagnosis: Hypoxia and SOB 2/2 pleural effusion In follow-up patient is on 5L NC, feels much better then yesterday s/p thoracentesis. Sitting in chair, able to eat. No fever, occasional cough Objective - Vital Signs Vital signs: Vital Signs Temp 97.8 F 01/17/21 14:00 Pulse 80 01/17/21 15:25 Resp 18 01/17/21 14:00 BP 154/71 01/17/21 14:00 Pulse Ox 97 01/17/21 15:23 Intake & Output 01/16/21 01/17/21 01/17/21 18:59 06:59 18:59 Output Total 3700 1800 1500 Balance -3700 -1800 -1500 Output: Urine 3700 1800 1500 Other: Voiding Method Urinal Urinal - Constitutional General appearance: Present: average body habitus, cooperative, no acute distress - EENT Eyes: Present: anicteric sclerae, EOMI ENT: Present: hearing grossly normal - Respiratory Respiratory: bilateral: CTA - Cardiovascular Rhythm: regular Heart sounds: normal: S1, S2 Abnormal Heart Sounds: Absent: systolic murmur, diastolic murmur, rub, S3 Gallop, S4 Gallop, click, other - Peripheral edema leg Peripheral Edema: bilateral: None - Gastrointestinal General gastrointestinal: Present: normal bowel sounds, soft - Integumentary Integumentary: Present: normal - Neurologic Neurologic: Present: CNII-XII intact - Musculoskeletal Musculoskeletal: Present: strength equal bilaterally - Psychiatric Psychiatric: Present: A&O x's 3, appropriate affect, intact judgment & insight - Labs CBC & Chem 7: 01/16/21 05:45 01/16/21 05:45 Labs: Microbiology - Last 24 Hours (Table) 01/15/21 11:48 Blood Culture - Preliminary Blood No Growth after 48 hours 01/16/21 11:57 Gram Stain - Preliminary Pleural Fluid Body Fluid Culture - Preliminary 01/12/21 16:41 Blood Culture - Preliminary Blood No Growth after 96 hours 01/16/21 11:57 Acid Fast Bacilli Culture - Preliminary Pleural Fluid 01/16/21 11:57 Fungal Culture - Preliminary Pleural Fluid - Imaging and Cardiology Chest x-ray: report reviewed Assessment and Plan (1) Hypoxia Narrative/Plan: Secondary to pleural effusion-much better after 1800cc thoracentesis, pending cytology. Off bipap Current Visit: Yes Status: Acute Priority: High Code(s): R09.02 - HYPOXEMIA SNOMED Code(s): 728606734 (2) Pleural effusion Narrative/Plan: Pulmonary performed thoracentsis, 1800cc removed, cytology pending. Previous fluids have been neg for malignancy. Possible from IO/pneumonitis. Pending current results Current Visit: Yes Status: Acute Priority: High Code(s): J90 - PLEURAL EFFUSION, NOT ELSEWHERE CLASSIFIED SNOMED Code(s): 52988651 (3) Non-small cell cancer of right lung Narrative/Plan: Treatment held back in November for 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 Patient is back on Solu-Medrol 40 every 8 for the same, he is also on abx. He may require prednisone taper on DC. Follow-up with his primary Oncologist. Current Visit: No Status: Chronic Priority: Medium Code(s): C34.91 - MALIG NANT NEOPLASM OF UNSP PART OF RIGHT BRONCHUS OR LUNG SNOMED Code(s): 335752632 Plan: Chronic DVT of the left lower extremity, on Xarelto Xanax at for anxiety
[2021-01-17] MEDS: LACTATED RINGERS 1,000 ML IV SCH (17:20)
[2021-01-17] MEDS: ALPRAZolam 0.25 MG TAB PO PRN (23:54)
[2021-01-18] MEDS: CEFEPIME 2 GM in SODIUM CHLORIDE 0.9% 100 ML IVPB SCH ×3 (03:18→19:28)
[2021-01-18] MEDS: AZITHROMYCIN 500 MG in SODIUM CHLORIDE 0.9% 250 ML IVPB SCH (03:18)
[2021-01-18] MEDS: IPRATROPIUM-ALBUTEROL 3 ML NEB INHALATION SCH ×5 (04:02→20:59)
[2021-01-18] MEDS: oxyCODONE-APAP 10-325MG 1 EACH TAB PO PRN ×2 (04:39→14:57)
[2021-01-18 07:38] LABS: African American GFR (CKD) >90 (>60 ml/min/1.73 sqM); Anion Gap 4 mmol/L; Blood Urea Nitrogen 26 mg/dL (9-20); Calcium 8.5 mg/dL (8.4-10.2); Carbon Dioxide 30 mmol/L (22-30); Chloride 102 mmol/L (98-107); Glucose 170 mg/dL (74-99); Non-African American GFR(CKD) >90 (>60 ml/min/1.73 sqM); Potassium 4.4 mmol/L (3.5-5.1); Sodium 136 mmol/L (137-145)
[2021-01-18] MEDS: MULTIVITAMINS, THERA 1 EACH TAB PO SCH (08:13)
[2021-01-18] MEDS: carvediloL 12.5 MG TAB PO SCH ×2 (08:13→19:29)
[2021-01-18] MEDS: RIVAROXABAN 2.5 MG TABLET PO SCH ×2 (08:13→19:29)
[2021-01-18] MEDS: ASPIRIN 81 MG PO SCH (08:13)
[2021-01-18] MEDS: methylPREDNISolone SOD SUCCI 40 MG/ML 1 ML VIAL IV SCH ×3 (08:17→23:09)
[2021-01-18] MEDS: FUROSEMIDE 10 MG/ML 2 ML VIAL IV SCH ×2 (08:20→19:29)
[2021-01-18] MEDS: FORMOTEROL FUMARATE 20 MCG/2 ML NEBU INHALATION SCH ×2 (08:32→21:02)
[2021-01-18] MEDS: SODIUM CHLORIDE 0.9% 1,000 ML IV SCH ×2 (08:38→17:09)
[2021-01-18] MEDS ORDERED: HYDROmorphone 0.5 MG/0.5 ML SYRINGE IVP STA (10:29)
--- NOTE | 2021-01-18 10:35 | P.PN ---
Subjective Progress Note Date: 01/18/21 Principal diagnosis: Acute hypoxic rest she failure, immunotherapy induced pneumonitis This is a 70-year-old male patient is coming in for worsening shortness of breath. 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 He was diagnosed having lung cancer back in the year 1999 and the patient was found to have an endobronchial tumor in the distal right mainstem and the patient's had a biopsy via bronchoscopy that was done on 04/19/2020 and a diagnosis was consistent with carcinoma. Staging PET scan at that time was done and the patient also had mediastinal lymphadenopathy involving the retrograde vertebral, pretracheal and right hilar and subcarinal areas. The patient was not showing back then any signs of metastases. He was started on radiation therapy that was completed the mono test on 05/12/2020 and the patient was started also on chemotherapy and received carboplatin and Taxol combination and he received a total of 7 cycles and he completed systemic chemotherapy on 07/16/2020. The patient also completed radiation therapy on 06/30/2020. Post treatment, there was some radiation changes involving the right hilar area. He was started on immunotherapy with Imfinzi . however during this time, the patient developed a right-sided pleural effusion. Thus far deficiency undergone a total of 2 thoracentesis of the pleural fluid was negative for malignancy. Last thoracentesis was done on 12/22/2020 with a total of 1.2 L of pleural fluid was aspirated. The patient is coming in to the emergency department because of worsening shortness of breath. His white cell count is a family. Renal function is stable at creatinine of 0.6. Sodium is 133. Overnight his testing was negative. The CAT scan was repeated today in the emergency department and there was no evidence of any pulmonary embolism. The patient was found to have a right-sided pleural effusion which is essentially stable. The patient also had bilateral groundglass pulmonary infiltrates and had increased compared to the prior CAT scan from 12/21/2020, ainly in the right upper lobe and less left upper lobe. He has not taken Imfimzi for the past 1 month Evaluation of 01/14/2021, I'm seeing the patient for a follow-up. Slightly improved compared to yesterday. He remains on bronchodilators and steroids. Ultrasound the left lower extremity showed an extensive thrombus within the left common femoral vein and this is likely a chronic thrombus from a previous traumatic injury to the left leg. He has chronic swelling in the left leg. No evidence of any acute DVT. No fever. No chills. Blood work essentially unchanged compared to yesterday and there is no significant leukocytosis. Blood cultures been negative. 01/15/2021, the patient remains symptomatic. He remains on bronchodilators and steroids. As mentioned earlier, the patient has some groundglass inflammatory changes in the upper lobes, chronic scarring in the right hilar area related to previous radiation therapy and a recurrent right-sided pleural effusion. Furthermore, the blood culture was positive for gram-positive cocci 2 out of 3 cultures. He is afebrile. He is hemodynamically stable. He is on IV cefepime. 01/16/2021, the patient is being seen in as of midnight, the patient's history is as decompensated and the patient became progressively more short of breath and hypoxic. At one point, the A team was called to the scene. I give the patient 40 mg IV Lasix and the patient made excellent urine output. The chest if it was done at that time showed development of acute pulmonary edema. There was also a right lower lobe pleural effusion. The patient was tried on high flow oxygen and so ultimately was switched to 100% nonrebreather facemask. On today's evaluation, the patient was to short of breath. I did a bedside thoracentesis with a total of 1.8 L of pleural fluid was aspirated from the right lung. We are in the process of gradually weaning this patient's FiO2. A nother dose of Lasix 40 g IV will be given. He remains on broad-spectrum antibiotics. He remains on steroids. He remains on a combination of cefepime and Zithromax and vancomycin. He is also on IV Solu-Medrol 40 mg every 8 hours. The white cell count is at 12.5. Hemoglobin is 11.5. The pro-calcitonin level is at 0.22. BUN is at 24 with a creatinine of 0.6. On 01/17/2021 patient is awake and alert, in no acute distress, breathing has significantly improved in response to diuretics. He is given 2 doses of IV diuretics yesterday, and he was started on maintenance dose of IV Lasix 20 mg every 12 hours. He is in -5.5 L net fluid balance over the last 24 hours. Today's chest x-ray showing increased interstitial, possible mixed airspace disease, no evident pneumothorax or pleural effusion. Vision patient has improved, and patient did not require BiPAP support overnight. His had no fever or chills, his pleural fluid cultures remain negative thus far. Labs are pending for today. She remains on azithromycin, and cefepime. Remains on IV Solu-Medrol 40 mg every 8 hours, no hemoptysis, no significant phlegm production. On today's evaluation on 01/18/2021 patient seen in follow-up on medical surgical floor, he is breathing comfortably, FiO2 is currently down to 4 L and his pulse ox is 98%, earlier today he was 7 L of supplemental oxygen. Not required BiPAP overnight. Breathing much more comfortably, lung sounds are positive for coarse basilar crackles, patient has a productive cough, and his bringing up some phlegm, no hemoptysis. Remains on cefepime for antibiotic c overage. No chest discomfort, she remains on Lasix 20 mg twice daily, and he is in -4.4 L net fluid balance over the last 24 hours. Yesterday's chest x-ray showed increased interstitial, and bilateral infiltrates. Today labs have been reviewed,'s serum sodium is 136, there is electrolytes are unremarkable, B1 is 26 and creatinine 0.7. Fever or chills overnight, vital signs have been stable, patient has been nothing by mouth after midnight for possibility of bronchoscopy with bronchoalveolar lavage Objective - Vital Signs Vital signs: Vital Signs Temp 97.8 F 01/18/21 07:24 Pulse 81 01/18/21 08:48 Resp 18 01/18/21 08:48 BP 155/72 01/18/21 07:24 Pulse Ox 97 01/18/21 08:32 Intake & Output 01/17/21 01/18/21 01/18/21 18:59 06:59 18:59 Intake Total 200 Output Total 2400 1999 Balance -2399 -1999 200 Intake: Oral 200 Output: Urine 2400 1999 Other: Voiding Method Urinal Urinal Urinal - Exam GENERAL EXAM: Alert, very pleasant, 70-year-old white male, 4 L of oxygen a pulse ox of 98%, comfortable in no apparent distress. HEAD: Normocephalic/atraumatic. EYES: Normal reaction of pupils, equal size. Conjunctiva pink, sclera white. NOSE: Clear with pink turbinates. THROAT: No erythema or exudates. NECK: No masses, no JVD, no thyroid enlargement, no adenopathy. CHEST: No chest wall deformity. Symmetrical expansion. LUNGS: Equal air entry with bilateral crackles CVS: Regular rate and rhythm, normal S1 and S2, no gallops, no murmurs, no rubs ABDOMEN: Soft, nontender. No hepatosplenomegaly, normal bowel sounds, no g uarding or rigidity. EXTREMITIES: No clubbing, no edema, no cyanosis, 2+ pulses and upper and lower extremities. MUSCULOSKELETAL: Muscle strength and tone normal. SPINE: No scoliosis or deformity SKIN: No rashes CENTRAL NERVOUS SYSTEM: Alert and oriented -3. No focal deficits, tone is normal in all 4 extremities. PSYCHIATRIC: Alert and oriented -3. Appropriate affect. Intact judgment and insight. - Labs CBC & Chem 7: 01/16/21 05:45 01/18/21 07:14 Labs: Abnormal Lab Results - Last 24 Hours (Table) 01/18/21 Range/Units 07:14 Sodium 136 L (137-145) mmol/L BUN 26 H (9-20) mg/dL Glucose 170 H (74-99) mg/dL Microbiology - Last 24 Hours (Table) 01/16/21 11:57 Acid Fast Bacilli Smear - Final Pleural Fluid Acid Fast Bacilli Culture - Preliminary 01/12/21 16:41 Blood Culture - Preliminary Blood No Growth after 120 hours 01/15/21 11:48 Blood Culture - Preliminary Blood No Growth after 48 hours 01/16/21 11:57 Gram Stain - Preliminary Pleural Fluid Body Fluid Culture - Preliminary Assessment and Plan Plan: 1 acute hypoxic respiratory failure with worsening shortness of breath and bilateral groundglass pulmonary infiltrates involving the right upper lobe and left upper lobe. 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 Consider infectious pneumonitis. Consider cancer progression so developed a moderate- sized right-sided pleural effusion which is a recurrent problem and the patient has undergone or centesis 2 with a negative pleural fluid cytology. Nevertheless, the decompensating fact that the groundglass changes in the upper lobes which is probably drug-induced pneumonitis versus infection. Over the past 24 hours and especially overnight, the patient decompensated and subsequent chest x-ray showed development of an acute pulmonary edema with diffuse but the pulmonary infiltrates. The patient improved with Lasix. Furthermore, bedside thoracentesis was done without a total of 1.8 L of pleural fluid was aspirated from the right lung. FiO2 is currently weaned down to 4 L of oxygen. Did not use BiPAP overnight, patient has been on diuretics, and his oxygenation is improving with diuresis 2 history of non-small cell lung cancer, squamous cell carcinoma, stage 3 had a time of diagnosis, post chemoradiation therapy, recurrent, treated with immunotherapy that was subsequently discontinued because of concern of pneumonitis 3 COPD 4 coronary artery disease with previous stent placement, 5 hypertension 6. 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 10 gram-positive cocci in the blood 2 out of 3. The patient is currently on IV cefepime. Vancomycin will be added empirically and 2 more sets of blood cultures will be sent. Note that one of the cultures showed micrococcus and the other one is still pending for now. Plan: Continue weaning FiO2 Overall oxygenation has significantly improved since admission, and his breathing is improving Require BiPAP last night, O2 is down to 2 L Of fever or chills, vital signs are stable Continue Cefepime NPO after midnight for possibility of bronchoscopy with BAL today Time with Patient: Less than 30
[2021-01-18 12:09] LABS: Basophils # (A) 0 X 10*3/uL (0.00-0.10); Basophils % (A) 0 %; Eosinophils # (A) 0 X 10*3/uL (0.04-0.35); Eosinophils % (A) 0 %; HCT 33.1 % (39.6-50.0); Lymphocytes # (A) 0.35 X 10*3/uL (0.90-5.00); Lymphocytes % (A) 3.8 %; MCH 27.1 pg (27.0-32.0); MCHC 30.2 g/dL (32.0-37.0); MCV 89.7 fL (80.0-97.0); Mean Platelet Volume 9.7 fL (9.5-12.2); Monocytes # (A) 0.25 X 10*3/uL (0.20-1.00); Monocytes % (A) 2.7 %; Neutrophils # (A) 8.43 X 10*3/uL (1.80-7.70); Neutrophils % (A) 92.6 %; Platelet Count 261 X 10*3/uL (140-440); RBC 3.69 X 10*6/uL (4.40-5.60); RDW 17.9 % (11.5-14.5); WBC 9.11 X 10*3/uL (4.50-10.00)
--- NOTE | 2021-01-18 12:43 | XR ---
EXAMINATION TYPE: XR chest 1V portable DATE OF EXAM: 01/18/2021 Comparison: 01/17/2021 Clinical History: 70-year-old male shortness of breath, lung cancer Findings: Heart remains enlarged. Patient rotated towards the right altering the normal cardiac mediastinal con tours. Interstitial densities remain but show improvement from prior exam. No pleural effusion. Sutur e anchors at the humeral heads from prior cuff repair with evidence of re-tears. Impression: Cardiomegaly with improving aeration. There are residual interstitial infiltrate suggesting CHF with pulmonary vascular congestion, again, improving from prior.
[2021-01-18] MEDS ORDERED: KETAMINE 10 MG/ML 20 ML VIAL ONE (13:54)
[2021-01-18] MEDS ORDERED: PROPOFOL 10 MG/ML 20 ML VIAL IV ONE (13:54)
[2021-01-18] MEDS ORDERED: LIDOCAINE 1% INJ 10MG/ML (20 ML MDV) ONE (13:54)
[2021-01-18 14:25] VITALS: BMI 29.1
[2021-01-18] MEDS ORDERED: IV FLUID CONTINUATION 100 ML IV ONE (14:27)
--- NOTE | 2021-01-18 14:32 | P.PCN ---
Date of Procedure: 01/18/21 Preoperative Diagnosis: 1 acute hypoxic respiratory failure with worsening shortness of breath and bilateral groundglass pulmonary infiltrates involving the right upper lobe and left upper lobe. 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 Consider infectious pneumonitis. 2 history of non-small cell lung cancer, squamous cell carcinoma, stage 3 3 COPD Postoperative Diagnosis: 1 bloody mucoid respiratory secretions occupying right upper lobe 2 airway inspection reveals no evidence of endobronchial tumors 3 bronchioloalveolar lavage of the right upper lobe was completed Anesthesia: MAC Surgeon: Hannah Brumfield Estimated Blood Loss (ml): 0 Pathology: other Condition: stable Disposition: floor Operative Findings: This is a flexible bronchoscopy that was done in the endoscopy suite. The anesthetic agents was administered by Saturday the bedside. The patient was given a combination of fentanyl and propofol. Patient was placed on a face mask. Current procedure was completed under conscious sedation After achieving adequate sedation, the Effexor bronchoscope was introduced through the right nostril. Examination of posterior oropharynx, larynx and upper airway structures was completed. Doppler airway structures including the arytenoids, vallecula, epiglottis, and vocal cords and all of these upper airway structures were within normal limits. There was excessive respiratory secretions that were quite loose and liquidy and sometimes bloody. Airway suctioning was done and the rest or secretions were suctioned out completely without any major difficulties. The vocal cord function mobility was within normal limits. A total of 2 mL of 1% lidocaine was applied to the vocal cords and following that the bronchoscope was advanced into the upper trachea. Exertion tracheal bronchial tree was done. Similar to the upper airway, there was some loose liquidy and bloody rest or secretions scattered throughout the patient's airway and most of the secretions were emanating from the right upper lobe and this critically ill right mainstem bronchus. Trachea was within ned l. Carmella was sharp in the midline. Bilateral mainstem bronchi were inspected as noted there was loose bloody rest or secretions the right mainstem bronchus, especially distally. Then the bronchoscope was moved to the right upper lobe. Some old blood clots in her 30s secretions were bloody were seen and these were aspirated. Bronchus intermedius was within normal limits. The right middle lob e bronchus and right lower lobe bronchus and the various segments of the right lung were all inspected. No other bronchial tumors. No lesions. No polyps. Mucosa was somewhat inflamed and erythematous. No signs of any acute bleeding. Bronchoscope was attempted left-sided and a left-sided examination included left mainstem bronchus, left upper lobe bronchus and left lower bronchus and the vari ous segments of the left. No significant abnormalities identified on the left. Bronchoscope was then moved to the right upper lobe anterior segment endobronchial lavage was done. A total of 60 cc of fluid was infused and 25 mL the blood gases was suctioned without any major difficulties. The aspirate cleared as suctioning was being performed. The patient encounter some cough. No desaturations. Bronchoscope was removed. No endobronchial biopsies ot transbronchial biopsies were done as the patient was on anticoagulants. Patient was transferred to recovery in stable condition. The bronchioloalveolar lavage will be sent for microbial cultures and analysis and cytology.
[2021-01-18] MEDS ORDERED: SODIUM CHLORIDE 0.65% NASAL SPRAY 44 ML BTL NASAL PRN (14:37)
--- NOTE | 2021-01-18 15:39 | P.PN ---
Subjective Progress Note Date: 01/18/21 Principal diagnosis: Hypoxia and SOB 2/2 pleural effusion In follow-up patient is Okay today, hisOxygen needs have been stable. He is pending going to bronchoscopy evaluation with Dr. Barnett today Objective - Vital Signs Vital signs: Vital Signs Temp 98.3 F 01/18/21 14:00 Pulse 85 01/18/21 14:00 Resp 20 01/18/21 14:00 BP 172/82 01/18/21 14:00 Pulse Ox 89 L 01/18/21 14:00 Intake & Output 01/17/21 01/18/21 01/18/21 18:59 06:59 18:59 Intake Total 200 Output Total 2400 2000 Balance -240 -1999 200 Weight 92.079 kg Intake: Oral 200 Output: Urine 2400 1999 Other: Voiding Method Urinal Urinal Urinal - Constitutional General appearance: Present: average body habitus, cooperative, no acute distress - EENT Eyes: Present: anicteric sclerae, EOMI ENT: Present: hearing grossly normal - Respiratory Respiratory: right: rales (Lower lobe), bilateral: CTA - Cardiovascular Rhythm: regular Heart sounds: normal: S1, S2 Abnormal Heart Sounds: Absent: systolic murmur, diastolic murmur, rub, S3 Gallop, S4 Gallop, click, other - Neurologic Neurologic: Present: CNII-XII intact - Musculoskeletal Musculoskeletal: Present: strength equal bilaterally - Psychiatric Psychiatric: Present: A&O x's 3, appropriate affect, intact judgment & insight - Labs CBC & Chem 7: 01/18/21 07:14 01/18/21 07:14 Labs: Abnormal Lab Results - Last 24 Hours (Table) 01/18/21 01/18/21 Range/Units 07:14 07:14 RBC 3.69 L (4.40-5.60) X 10*6/uL Hgb 10.0 L (13.0-17.0) g/dL Hct 33.1 L (39.6-50.0) % MCHC 30.2 L (32.0-37.0) g/dL RDW 17.9 H (11.5-14.5) % Immature Gran # 0.08 H (0.00-0.04) X 10*3/uL Neutrophils # 8.43 H (1.80-7.70) X 10*3/uL Lymphocytes # 0.35 L (0.90-5.00) X 10*3/uL Eosinophils # 0 L (0.04-0.35) X 10*3/uL Sodium 136 L (137-145) mmol/L BUN 26 H (9-20) mg/dL Glucose 170 H (74-99) mg/dL Microbiology - Last 24 Hours (Table) 01/15/21 11:48 Blood Culture - Preliminary Blood No Growth after 72 hours 01/16/21 11:57 Acid Fast Bacilli Smear - Final Pleural Fluid Acid Fast Bacilli Culture - Preliminary 01/12/21 16:41 Blood Culture - Preliminary Blood No Growth after 120 hours Assessment and Plan (1) Hypoxia Narrative/Plan: Secondary to pleural effusion-much better after 1800cc thoracentesis, pending cytology. Bronchoscopy and BAL plan today with Pulmonary. O2 needs have been stable, slowly weaning down, should be improved after pulmonary procedure today Current Visit: Yes Status: Acute Priority: High Code(s): R09.02 - HYPOXEMIA SNOMED Code(s): 799403994 (2) Pleural effusion Narrative/Plan: Pulmonary performed thoracentsis, 1800cc removed, cytology pending. Previous fluids have been neg for malignancy. Possible from IO/pneumonitis. Pending current results Current Visit: Yes Status: Acute Priority: High Code(s): J90 - PLEURAL EFFUSION, NOT ELSEWHERE CLASSIFIED SNOMED Code(s): 22694786 (3) Non-small cell cancer of right lung Narrative/Plan: Treatment held back in November for 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 Patient is back on Solu-Medrol 40 every 8 for the same, he is also on abx. He may require prednisone taper on DC. Follow-up with his primary Oncologist is already scheduled, appointment in the discharge plan. Current Visit: No Status: Chronic Priority: Medium Code(s): C34.91 - MALIGNANT NEOPLASM OF UNSP PART OF RIGHT BRONCHUS OR LUNG SNOMED Code(s): 932644439 Plan: Chronic DVT of the left lower extremity, on Xarelto Xanax ordered at HS for anxiety
[2021-01-18] MEDS: LACTATED RINGERS 1,000 ML IV SCH (16:03)
[2021-01-18 19:08] LABS: Appearance,BF Hazy; Color,BF Red; Nucleated Cells, Body Fluid 1267 /uL; RBC, Body Fluid 19000 /uL
[2021-01-18 19:11] LABS: Mononuclear WBC,Body Fluid 22 %; Polynuclear WBC,Body Fluid 78 %; Total Cells Counted,Body Fluid 100
[2021-01-18] MEDS: MORPHINE SULFATE ER 15 MG TABLET PO PRN (19:29)
[2021-01-19] MEDS: IPRATROPIUM-ALBUTEROL 3 ML NEB INHALATION SCH ×7 (00:45→23:52)
[2021-01-19] MEDS: CEFEPIME 2 GM in SODIUM CHLORIDE 0.9% 100 ML IVPB SCH ×3 (03:59→21:35)
[2021-01-19] MEDS: oxyCODONE-APAP 10-325MG 1 EACH TAB PO PRN ×3 (05:18→19:27)
[2021-01-19] MEDS: SODIUM CHLORIDE 0.9% 1,000 ML IV SCH ×2 (05:28→14:20)
--- NOTE | 2021-01-19 06:55 | XR ---
EXAMINATION TYPE: XR chest 1V portable DATE OF EXAM: 01/19/2021 COMPARISON: Chest x-ray 01/18/2021 HISTORY: Pneumonia TECHNIQUE: Single frontal view of the chest is obtained. FINDINGS: Pleural-parenchymal changes are similar to prior exam. Cardiac mediastinal silhouette is l ikely stable. There is no evident pneumothorax, difficult to exclude small pleural effusion. Persist ent prominence of interstitium noted. IMPRESSION: Findings similar to prior exam. Correlate for possible interstitial edema, pneumonia not excluded.
[2021-01-19] MEDS: AZITHROMYCIN 500 MG TAB PO SCH (08:34)
[2021-01-19] MEDS: FUROSEMIDE 10 MG/ML 2 ML VIAL IV SCH ×2 (08:34→21:36)
[2021-01-19] MEDS: methylPREDNISolone SOD SUCCI 40 MG/ML 1 ML VIAL IV SCH ×3 (08:34→23:13)
[2021-01-19] MEDS: ASPIRIN 81 MG PO SCH (08:35)
[2021-01-19] MEDS: carvediloL 12.5 MG TAB PO SCH ×2 (08:35→21:36)
[2021-01-19] MEDS: RIVAROXABAN 2.5 MG TABLET PO SCH ×2 (08:35→21:36)
[2021-01-19] MEDS: MULTIVITAMINS, THERA 1 EACH TAB PO SCH (08:35)
[2021-01-19] MEDS: MORPHINE SULFATE ER 15 MG TABLET PO PRN (08:40)
[2021-01-19] MEDS: FORMOTEROL FUMARATE 20 MCG/2 ML NEBU INHALATION SCH ×2 (09:35→20:35)
--- NOTE | 2021-01-19 12:24 | P.PN ---
Subjective Progress Note Date: 01/19/21 Principal diagnosis: Acute hypoxic rest she failure, immunotherapy induced pneumonitis This is a 70-year-old male patient is coming in for worsening shortness of breath. 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 He was diagnosed having lung cancer back in the year 1999 and the patient was found to have an endobronchial tumor in the distal right mainstem and the patient's had a biopsy via bronchoscopy that was done on 04/19/2020 and a diagnosis was consistent with carcinoma. Staging PET scan at that time was done and the patient also had mediastinal lymphadenopathy involving the retrograde vertebral, pretracheal and right hilar and subcarinal areas. The patient was not showing back then any signs of metastases. He was started on radiation therapy that was completed the mono test on 05/12/2020 and the patient was started also on chemotherapy and received carboplatin and Taxol combination and he received a total of 7 cycles and he completed systemic chemotherapy on 07/16/2020. The patient also completed radiation therapy on 06/30/2020. Post treatment, there was some radiation changes involving the right hilar area. He was started on immunotherapy with Imfinzi . however during this time, the patient developed a right-sided pleural effusion. Thus far deficiency undergone a total of 2 thoracentesis of the pleural fluid was negative for malignancy. Last thoracentesis was done on 12/22/2020 with a total of 1.2 L of pleural fluid was aspirated. The patient is coming in to the emergency department because of worsening shortness of breath. His white cell count is a family. Renal function is stable at creatinine of 0.6. Sodium is 133. Overnight his testing was negative. The CAT scan was repeated today in the emergency department and there was no evidence of any pulmonary embolism. The patient was found to have a right-sided pleural effusion which is essentially stable. The patient also had bilateral groundglass pulmonary infiltrates and had increased compared to the prior CAT scan from 12/21/2020, ainly in the right upper lobe and less left upper lobe. He has not taken Imfimzi for the past 1 month Evaluation of 01/14/2021, I'm seeing the patient for a follow-up. Slightly improved compared to yesterday. He remains on bronchodilators and steroids. Ultrasound the left lower extremity showed an extensive thrombus within the left common femoral vein and this is likely a chronic thrombus from a previous traumatic injury to the left leg. He has chronic swelling in the left leg. No evidence of any acute DVT. No fever. No chills. Blood work essentially unchanged compared to yesterday and there is no significant leukocytosis. Blood cultures been negative. 01/15/2021, the patient remains symptomatic. He remains on bronchodilators and steroids. As mentioned earlier, the patient has some groundglass inflammatory changes in the upper lobes, chronic scarring in the right hilar area related to previous radiation therapy and a recurrent right-sided pleural effusion. Furthermore, the blood culture was positive for gram-positive cocci 2 out of 3 cultures. He is afebrile. He is hemodynamically stable. He is on IV cefepime. 01/16/2021, the patient is being seen in as of midnight, the patient's history is as decompensated and the patient became progressively more short of breath and hypoxic. At one point, the A team was called to the scene. I give the patient 40 mg IV Lasix and the patient made excellent urine output. The chest if it was done at that time showed development of acute pulmonary edema. There was also a right lower lobe pleural effusion. The patient was tried on high flow oxygen and so ultimately was switched to 100% nonrebreather facemask. On today's evaluation, the patient was to short of breath. I did a bedside thoracentesis with a total of 1.8 L of pleural fluid was aspirated from the right lung. We are in the process of gradually weaning this patient's FiO2. A nother dose of Lasix 40 g IV will be given. He remains on broad-spectrum antibiotics. He remains on steroids. He remains on a combination of cefepime and Zithromax and vancomycin. He is also on IV Solu-Medrol 40 mg every 8 hours. The white cell count is at 12.5. Hemoglobin is 11.5. The pro-calcitonin level is at 0.22. BUN is at 24 with a creatinine of 0.6. On 01/17/2021 patient is awake and alert, in no acute distress, breathing has significantly improved in response to diuretics. He is given 2 doses of IV diuretics yesterday, and he was started on maintenance dose of IV Lasix 20 mg every 12 hours. He is in -5.5 L net fluid balance over the last 24 hours. Today's chest x-ray showing increased interstitial, possible mixed airspace disease, no evident pneumothorax or pleural effusion. Vision patient has improved, and patient did not require BiPAP support overnight. His had no fever or chills, his pleural fluid cultures remain negative thus far. Labs are pending for today. She remains on azithromycin, and cefepime. Remains on IV Solu-Medrol 40 mg every 8 hours, no hemoptysis, no significant phlegm production. On today's evaluation on 01/18/2021 patient seen in follow-up on medical surgical floor, he is breathing comfortably, FiO2 is currently down to 4 L and his pulse ox is 98%, earlier today he was 7 L of supplemental oxygen. Not required BiPAP overnight. Breathing much more comfortably, lung sounds are positive for coarse basilar crackles, patient has a productive cough, and his bringing up some phlegm, no hemoptysis. Remains on cefepime for antibiotic c overage. No chest discomfort, she remains on Lasix 20 mg twice daily, and he is in -4.4 L net fluid balance over the last 24 hours. Yesterday's chest x-ray showed increased interstitial, and bilateral infiltrates. Today labs have been reviewed,'s serum sodium is 136, there is electrolytes are unremarkable, B1 is 26 and creatinine 0.7. Fever or chills overnight, vital signs have been stable, patient has been nothing by mouth after midnight for possibility of bronchoscopy with bronchoalveolar lavage On 01/19/2021 patient seen in follow-up on medical surgical floor. He is resting comfortably in bed, in no acute distress, denies any worsening dyspnea, he is currently on 2 L of oxygen, his pulse ox is 98%, his breathing comfortably. No couplets of chest discomfort. His been afebrile, vital signs have been stable. There is post bronchoscopy with bronchoalveolar lavage yesterday on 01/18/2021, BAL cultures are still pending, cytology still pending. Remains on diuretics with Lasix 20 mg twice daily. Breathing is improving. NetFluid balance is not available to us, no accurate weight recorded for today. Remains on antibiotics and steroids. No new labs today. Objective - Vital Signs Vital signs: Vital Signs Temp 98.4 F 01/19/21 07:34 Pulse 88 01/19/21 09:55 Resp 18 01/19/21 07:34 BP 152/78 01/19/21 07:34 Pulse Ox 98 01/19/21 07:34 Intake & Output 01/18/21 01/19/21 01/19/21 18:59 06:59 18:59 Intake Total 500 Output Total 1200 1750 Balance -700 -1750 Weight 92.079 kg Intake: Oral 500 Output: Urine 1200 1750 Other: Voiding Method Urinal Urinal Indwelling Catheter - Exam GENERAL EXAM: Alert, very pleasant, 70-year-old white male, 2 L of oxygen a pulse ox of 98%, comfortable in no apparent distress. HEAD: Normocephalic/atraumatic. EYES: Normal reaction of pupils, equal size. Conjunctiva pink, sclera white. NOSE: Clear with pink turbinates. THROAT: No erythema or exudates. NECK: No masses, no JVD, no thyroid enlargement, no adenopathy. CHEST: No chest wall deformity. Symmetrical expansion. LUNGS: Equal air entry with bilateral crackles CVS: Regular rate and rhythm, normal S1 and S2, no gallops, no murmurs, no rubs ABDOMEN: Soft, nontender. No hepatosplenomegaly, normal bowel sounds, no guarding or rigidity. EXTREMITIES: No clubbing, no edema, no cyanosis, 2+ pulses and upper and lower extremities. MUSCULOSKELETAL: Muscle strength and tone normal. SPINE: No scoliosis or deformity SKIN: No rashes CENTRAL NERVOUS SYSTEM: Alert and oriented -3. No focal deficits, tone is normal in all 4 extremities. PSYCHIATRIC: Alert and oriented -3. Appropriate affect. Intact judgment and insight. - Labs CBC & Chem 7: 01/18/21 07:14 01/18/21 07:14 Labs: Abnormal Lab Results - Last 24 Hours (Table) 01/18/21 Range/Units 07:14 RBC 3.69 L (4.40-5.60) X 10*6/uL Hgb 10.0 L (13.0-17.0) g/dL Hct 33.1 L (39.6-50.0) % MCHC 30.2 L (32.0-37.0) g/dL RDW 17.9 H (11.5-14.5) % Immature Gran # 0.08 H (0.00-0.04) X 10*3/uL Neutrophils # 8.43 H (1.80-7.70) X 10*3/uL Lymphocytes # 0.35 L (0.90-5.00) X 10*3/uL Eosinophils # 0 L (0.04-0.35) X 10*3/uL Microbiology - Last 24 Hours (Table) 01/16/21 11:57 Gram Stain - Preliminary Pleural Fluid Body Fluid Culture - Preliminary 01/19/21 01:04 Sputum Culture - Preliminary Sputum 01/18/21 14:24 Gram Stain - Preliminary Bronchial Washings - Right Bronchial Washings Culture - Preliminary 01/18/21 14:24 Acid Fast Bacilli Culture - Preliminary Bronchial Washings - Right 01/18/21 14:24 Fungal Culture - Preliminary Bronchial Washings - Right 01/12/21 16:41 Blood Culture - Final Blood No Growth after 144 hours 01/15/21 11:48 Blood Culture - Preliminary Blood No Growth after 72 hours Assessment and Plan Plan: 1 acute hypoxic respiratory failure with worsening shortness of breath and bilateral groundglass pulmonary infiltrates involving the right upper lobe and left upper lobe. 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 Consider infectious pneumonitis. Consider cancer progression so developed a moderate- sized right-sided pleural effusion which is a recurrent problem and the patient has undergone or centesis 2 with a negative pleural fluid cytology. Nevertheless, the decompensating fact that the groundglass changes in the upper lobes which is probably drug-induced pneumonitis versus infection. Over the past 24 hours and especially overnight, the patient decompensated and subsequent chest x-ray showed development of an acute pulmonary edema with diffuse but the pulmonary infiltrates. The patient improved with Lasix. Furthermore, bedside thoracentesis was done without a total of 1.8 L of pleural fluid was aspirated from the right lung. FiO2 is currently weaned down to 2 L of oxygen. Did not use BiPAP overnight, patient has been on diuretics, and his oxygenation is improving with diuresis. he had a bronchoscopy with BAL on 01/18/2021, coarse cultures are still pending at this time 2 history of non-small cell lung cancer, squamous cell carcinoma, stage 3 had a time of diagnosis, post chemoradiation therapy, recurrent, treated with immunotherapy that was subsequently discontinued because of concern of pneumonitis 3 COPD 4 coronary artery disease with previous stent placement, 5 hypertension 6. 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 10 gram-positive cocci in the blood 2 out of 3. The patient is currently on IV cefepime. Vancomycin will be added empirically and 2 more sets of blood cultures will be sent. Note that one of the cultures showed micrococcus and the other one is still pending for now. Plan: Continue diuretics Continue same antibiotics Awaiting results of the bronchus cultures Continue IV steroids and breathing treatments Continue weaning FiO2 Follow-up labs, daily weights, Consider switching the patient over to oral prednisone in next 24 hours May consider discharge home in the next 24 hours. Time with Patient: Less than 30
--- NOTE | 2021-01-19 18:13 | P.PN ---
Subjective Progress Note Date: 01/19/21 Principal diagnosis: Hypoxia and SOB 2/2 pleural effusion In follow-up patient is doing good, O2 needs down to 1L. NO other c/o, he feels good other then his breathing Objective - Vital Signs Vital signs: Vital Signs Temp 98.3 F 01/19/21 14:00 Pulse 84 01/19/21 17:28 Resp 18 01/19/21 14:00 BP 137/69 01/19/21 14:00 Pulse Ox 93 L 01/19/21 15:25 Intake & Output 01/18/21 01/19/21 01/19/21 18:59 06:59 18:59 Intake Total 500 Output Total 1200 1750 Balance -700 -1750 Weight 92.079 kg 87.8 kg Intake: Oral 500 Output: Urine 1200 1750 Other: Voiding Method Urinal Urinal Indwelling Catheter - Constitutional General appearance: Present: average body habitus, cooperative, no acute distress - EENT Eyes: Present: anicteric sclerae, EOMI ENT: Present: hearing grossly normal - Respiratory Respiratory: right: wheezing (RML expiratory), bilateral: CTA - Cardiovascular Rhythm: regular Heart sounds: normal: S1, S2 - Peripheral edema foot Peripheral Edema: bilateral: Trace - Gastrointestinal General gastrointestinal: Present: normal bowel sounds, soft - Neurologic Neurologic: Present: CNII-XII intact - Musculoskeletal Musculoskeletal: Present: strength equal bilaterally - Psychiatric Psychiatric: Present: A&O x's 3, appropriate affect, intact judgment & insight - Labs CBC & Chem 7: 01/18/21 07:14 01/18/21 07:14 Labs: Microbiology - Last 24 Hours (Table) 01/15/21 11:48 Blood Culture - Preliminary Blood No Growth after 96 hours 01/16/21 11:57 Gram Stain - Preliminary Pleural Fluid Body Fluid Culture - Preliminary 01/19/21 01:04 Sputum Culture - Preliminary Sputum 01/18/21 14:24 Gram Stain - Preliminary Bronchial Washings - Right Bronchial Washings Culture - Preliminary 01/18/21 14:24 Acid Fast Bacilli Culture - Preliminary Bronchial Washings - Right 01/18/21 14:24 Fungal Culture - Preliminary Bronchial Washings - Right 01/12/21 16:41 Blood Culture - Final Blood No Growth after 144 hours - Imaging and Cardiology Chest x-ray: report reviewed Assessment and Plan (1) Hypoxia Narrative/Plan: Secondary to pleural effusion-much better after 1800cc thoracentesis, pending cytology. Bronchoscopy and BAL plan yesterday with Pulmonary, cultures pending. O2 needs down to 1L Current Visit: Yes Status: Acute Priority: High Code(s): R09.02 - HYPOXEMIA SNOMED Code(s): 226751414 (2) Pleural effusion Narrative/Plan: Pulmonary performed thoracentsis, 1800cc removed, cytology pending. Previous fluids have been neg for malignancy. Possible from IO/pneumonitis. 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 Patient is back on Solu-Medrol 40 every 8 for the same, he is also on abx. He may require prednisone taper on DC. Follow-up with his primary Oncologist is already scheduled, appointment in the d ischarge plan. Current Visit: No Status: Chronic Priority: Medium Code(s): C34.91 - MALIGNANT NEOPLASM OF UNSP PART OF RIGHT BRONCHUS OR LUNG SNOMED Code(s): 474432136 Plan: Chronic DVT of the left lower extremity, on Xarelto Xanax ordered at HS for anxiety
[2021-01-19] MEDS: MORPHINE SULFATE ER 15 MG TABLET PO SCH (21:36)
[2021-01-19] MEDS: ALPRAZolam 0.25 MG TAB PO PRN (23:13)
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
[2021-01-20] MEDS: CEFEPIME 2 GM in SODIUM CHLORIDE 0.9% 100 ML IVPB SCH ×2 (04:33→12:07)
[2021-01-20] MEDS: oxyCODONE-APAP 10-325MG 1 EACH TAB PO PRN ×2 (05:09→12:13)
[2021-01-20] MEDS: IPRATROPIUM-ALBUTEROL 3 ML NEB INHALATION SCH ×4 (05:39→16:27)
[2021-01-20] MEDS: MULTIVITAMINS, THERA 1 EACH TAB PO SCH (07:18)
[2021-01-20] MEDS: MORPHINE SULFATE ER 15 MG TABLET PO SCH (07:18)
[2021-01-20] MEDS: carvediloL 12.5 MG TAB PO SCH (07:18)
[2021-01-20] MEDS: FUROSEMIDE 10 MG/ML 2 ML VIAL IV SCH (07:19)
[2021-01-20] MEDS: RIVAROXABAN 2.5 MG TABLET PO SCH (07:19)
[2021-01-20] MEDS: ASPIRIN 81 MG PO SCH (07:19)
[2021-01-20] MEDS: AZITHROMYCIN 500 MG TAB PO SCH (07:19)
[2021-01-20] MEDS: methylPREDNISolone SOD SUCCI 40 MG/ML 1 ML VIAL IV SCH (07:19)
[2021-01-20] MEDS: FORMOTEROL FUMARATE 20 MCG/2 ML NEBU INHALATION SCH (09:03)
[2021-01-20 09:24] LABS: Basophils # (A) 0.01 X 10*3/uL (0.00-0.10); Basophils % (A) 0.1 %; Eosinophils # (A) 0 X 10*3/uL (0.04-0.35); Eosinophils % (A) 0 %; HCT 37.2 % (39.6-50.0); HGB 11.3 g/dL (13.0-17.0); Lymphocytes # (A) 0.27 X 10*3/uL (0.90-5.00); MCH 27.3 pg (27.0-32.0); MCHC 30.4 g/dL (32.0-37.0); MCV 89.9 fL (80.0-97.0); Mean Platelet Volume 9.7 fL (9.5-12.2); Neutrophils # (A) 6.14 X 10*3/uL (1.80-7.70); Neutrophils % (A) 91.4 %; Platelet Count 299 X 10*3/uL (140-440); RBC 4.14 X 10*6/uL (4.40-5.60); WBC 6.72 X 10*3/uL (4.50-10.00)
[2021-01-20 09:25] VITALS: BP 152/78; RESP 18; TEMP 98
[2021-01-20 10:14] LABS: African American GFR (CKD) 111.6 (60.0-200.0); Anion Gap 9.3 mmol/L (4.00-12.00); Calcium 8.8 mg/dL (8.7-10.3); Carbon Dioxide 32.7 mmol/L (21.6-31.8); Non-African American GFR(CKD) 96.3 (60.0-200.0)
--- NOTE | 2021-01-20 12:40 | P.PN ---
Progress Note - Text Progress Note Date: 01/20/21 Will require oxygen nasal cannula at 2 L secondary to his chronic obstructive pulmonary disease and lung cancer
[2021-01-20 13:09] VITALS: PULSE 92
[2021-01-20] MEDS ORDERED: TAMSULOSIN 0.4 MG CAP.ER.24H PO STA (13:29)
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
--- NOTE | 2021-01-21 00:13 | P.PN ---
Subjective Progress Note Date: 01/20/21 discharge planning today Objective - Vital Signs Vital signs: Vital Signs Temp 98.0 F 01/20/21 08:00 Pulse 92 01/20/21 12:02 Resp 18 01/20/21 08:30 BP 152/78 01/20/21 08:00 Pulse Ox 74 L 01/20/21 12:02 Intake & Output 01/19/21 01/20/21 01/20/21 18:59 06:59 18:59 Intake Total 320 Output Total 3600 2600 1800 Balance -3600 -2280 -1800 Weight 87.8 kg 86 kg Intake: Intake, IV Titration 320 Amount Cefepime 2 gm In Sodium 200 Chloride 0.9% 100 ml @ 25 mls/hr IVPB Q8H [facility] Rx#: [id number] IV Fluid Continuation 100 120 ml @ 0 mls/hr IV .STK- [facility] Rx#:[id number] Output: Urine 3600 2600 1800 Other: Voiding Method Indwelling Catheter Indwelling Catheter Indwelling Catheter # Bowel Movements 1 - Exam - Constitutional General appearance: Present: average body habitus, cooperative, no acute distress - EENT Eyes: Present: anicteric sclerae, EOMI ENT: Present: hearing grossly normal - Respiratory Respiratory: right: wheezing (RML expiratory), bilateral: CTA - Cardiovascular Rhythm: regular Heart sounds: normal: S1, S2 - Peripheral edema foot Peripheral Edema: bilateral: Trace - Gastrointestinal General gastrointestinal: Present: normal bowel sounds, soft - Neurologic Neurologic: Present: CNII-XII intact - Musculoskeletal Musculoskeletal: Present: strength equal bilaterally - Psychiatric Psychiatric: Present: A&O x's 3, appropriate affect, intact judgment & insight - Labs CBC & Chem 7: 01/20/21 06:45 01/20/21 06:45 Labs: Abnormal Lab Results - Last 24 Hours (Table) 01/20/21 01/20/21 Range/Units 06:45 06:45 RBC 4.14 L (4.40-5.60) X 10*6/uL Hgb 11.3 L (13.0-17.0) g/dL Hct 37.2 L (39.6-50.0) % MCHC 30.4 L (32.0-37.0) g/dL RDW 18.0 H (11.5-14.5) % Immature Gran # 0.10 H (0.00-0.04) X 10*3/uL Lymphocytes # 0.27 L (0.90-5.00) X 10*3/uL Eosinophils # 0 L (0.04-0.35) X 10*3/uL Carbon Dioxide 32.7 H (21.6-31.8) mmol/L BUN 28.0 H (9.0-27.0) mg/dL BUN/Creatinine Ratio 40.00 H (12.00-20.00) Ratio Glucose 177 H (70-110) mg/dL Microbiology - Last 24 Hours (Table) 01/19/21 01:04 Gram Stain - Preliminary Sputum Sputum Culture - Preliminary 01/16/21 11:57 Gram Stain - Final Pleural Fluid Body Fluid Culture - Final 01/18/21 14:24 Acid Fast Bacilli Smear - Final Bronchial Washings - Right Acid Fast Bacilli Culture - Preliminary 01/15/21 11:48 Blood Culture - Preliminary Blood No Growth after 96 hours 01/18/21 14:24 Gram Stain - Preliminary Bronchial Washings - Right Bronchial Washings Culture - Preliminary Assessment and Plan Plan: - Imaging and Cardiology Chest x-ray: report reviewed Assessment and Plan (1) Hypoxia Narrative/Plan: Secondary to pleural effusion-much better after 1800cc thoracentesis, pending cytology. Bronchoscopy and BAL plan yesterday with Pulmonary, cultures pending. O2 needs down to 1L Current Visit: Yes Status: Acute Priority: High Code(s): R09.02 - HYPOXEM IA SNOMED Code(s): 559924551 (2) Pleural effusion Narrative/Plan: Pulmonary performed thoracentsis, 1800cc removed, cytology pending. Previous fluids have been neg for malignancy. Possible from IO/pneumonitis. 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 - Patient is back on Solu-Medrol 40 every 8 for the same, he is also on abx. He may require prednisone taper on DC. Discharge with PPI Follow-up appointment in the discharge plan. 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
== END 2021-01-20 16:40 | disposition home or self-care (01) | DRG 871 ==
LOC: EC 14:24 → 4SSUR 22:02
PROVIDERS: ADMIT Hospitalist; ATTEND Hospitalist
PROC: 0W993ZZ Drainage of Right Pleural Cavity, Percutaneous Approach (ICD-10-PCS; principal; 2021-01-16)
PROC: 0B918ZZ Drainage of Trachea, Via Natural or Artificial Opening Endoscopic (ICD-10-PCS; 2021-01-18)
PROC: 0BC48ZZ Extirpation of Matter from Right Upper Lobe Bronchus, Via Natural or Artificial Opening Endoscopic (ICD-10-PCS; 2021-01-18)
PROC: 0B9C8ZX Drainage of Right Upper Lung Lobe, Via Natural or Artificial Opening Endoscopic, Diagnostic (ICD-10-PCS; 2021-01-18)
DX: A41.9 Sepsis, unspecified organism (principal); J96.01 Acute respiratory failure with hypoxia; J44.0 Chronic obstructive pulmonary disease with (acute) lower respiratory infection; C34.91 Malignant neoplasm of unspecified part of right bronchus or lung; Z16.24 Resistance to multiple antibiotics; J44.1 Chronic obstructive pulmonary disease with (acute) exacerbation; L03.116 Cellulitis of left lower limb; I50.32 Chronic diastolic (congestive) heart failure; I82.512 Chronic embolism and thrombosis of left femoral vein; J90 Pleural effusion, not elsewhere classified; Z79.01 Long term (current) use of anticoagulants; Z79.82 Long term (current) use of aspirin; Z79.899 Other long term (current) drug therapy; Z80.1 Family history of malignant neoplasm of trachea, bronchus and lung; Z85.118 Personal history of other malignant neoplasm of bronchus and lung; Z86.2 Personal history of diseases of the blood and blood-forming organs and certain disorders involving the immune mechanism; Z87.891 Personal history of nicotine dependence; Z92.21 Personal history of antineoplastic chemotherapy; Z92.3 Personal history of irradiation; Z95.5 Presence of coronary angioplasty implant and graft; G89.4 Chronic pain syndrome; I25.10 Atherosclerotic heart disease of native coronary artery without angina pectoris; I25.2 Old myocardial infarction; F41.9 Anxiety disorder, unspecified; D63.0 Anemia in neoplastic disease; M54.9 Dorsalgia, unspecified; R59.0 Localized enlarged lymph nodes; I73.9 Peripheral vascular disease, unspecified; I11.0 Hypertensive heart disease with heart failure
CPT/HCPCS: 31624; 36415; 71045; 71046; 71275; 80048; 80053; 80202; 81003; 82945; 83605; 83615; 83735; 84100; 84145; 84157; 84484; 85025; 85379; 85610; 85730; 87040; 87070; 87102; 87116; 87205; 87206; 87252; 87496; 87498; 87502; 87529; 87634; 87635; 87798; 88108; 88305; 88341; 88342; 89050; 93005; 93306; 93970; 94640; 94660; 94760; 96365; 96367; 96372; 96375; 99285

== ENCOUNTER 2021-02-21 07:58 | Day surgery (SDC) | payer MEDICARE, OTHER ==
[2021-02-21 08:31] LABS: Mean Platelet Volume 7.6; Platelet Count 315 k/uL (150-450)
[2021-02-21 08:42] VITALS: RESP 18; TEMP 98.3
[2021-02-21 08:52] LABS: INR 0.8 (<1.2); Prothrombin Time 9.4 sec (9.0-12.0)
[2021-02-21 09:51] VITALS: PULSE 80
--- NOTE | 2021-02-21 10:07 | XR ---
EXAMINATION TYPE: XR chest 1V portable DATE OF EXAM: 02/21/2021 COMPARISON: Chest x-ray 01/19/2021 HISTORY: Status post right thoracentesis TECHNIQUE: Single frontal view of the chest is obtained. FINDINGS: Abnormal density within the right chest likely corresponds to patient's known lung carcino ma. There is no evident pneumothorax. Cardiac mediastinal silhouette shows a similar appearance accou nting for differences in technique. IMPRESSION: No evident complication status post thoracentesis.
[2021-02-21 10:11] VITALS: BP 148/76
--- NOTE | 2021-02-21 11:12 | US ---
EXAMINATION TYPE: US thoracentesis DATE OF EXAM: 02/21/2021 COMPARISON: NONE HISTORY: Pleural effusion on the right. FINDINGS: Maximal barrier technique was utilized. The skin overlying a suitable pocket of fluid was localized and the overlying skin prepped and draped. Lidocaine was used for local anesthesia. Ultras ound was used with sterile technique. An 8 [place] catheter over a guide needle was advanced into th e pleural fluid collection using ultrasound guidance and the catheter advanced and needle removed. A pproximately 1.2 liter(s) of serous fluid was removed. Catheter was withdrawn and hemostasis achieve d. There is no immediate complication. The patient discharged in stable condition without complicat ion. IMPRESSION: STATUS POST ULTRASOUND GUIDED THORACENTESIS, POST PROCEDURE CHEST X-RAY PENDING. THIS [place] OCEDURE WAS PERFORMED BY THE UNDERSIGNED. Specimen sent for laboratory analysis.
== END 2021-02-21 10:24 | disposition home or self-care (01) ==
LOC: RADPROMAIN 07:58
PROVIDERS: ATTEND Internal Medicine Hematology & Oncology
DX: J90 Pleural effusion, not elsewhere classified (principal)
CPT/HCPCS: 32555; 71045; 85049; 85610; 87070; 87075; 87205; 88108; 88305; 88341; 88342

== ENCOUNTER → 2021-02-23 | Outpatient (CLI) | payer MEDICARE, OTHER ==
[2021-02-23 12:36] LABS: African American GFR (CKD) >90 (>60 ml/min/1.73 sqM); Blood Urea Nitrogen 13 mg/dL (9-20); Non-African American GFR(CKD) >90 (>60 ml/min/1.73 sqM)
--- NOTE | 2021-02-23 13:34 | CT ---
EXAMINATION TYPE: CT ChestAbdPelvis w con DATE OF EXAM: 02/23/2021 COMPARISON: 11/10/2020 HISTORY: Lung cancer CT DLP: 1217.90 mGycm CONTRAST: CT scan of the chest, abdomen and pelvis is performed with Oral Contrast and with IV Contrast, patien t injected with 100 ml mL of Isovue 300. CT Chest: LUNGS: Persistent but improved right-sided pleural effusion. Scattered areas of patchy and interstiti al infiltrate throughout the right lung with relative sparing of the right lung apex. The findings ma y in part be related to prior treatment. Right infrahilar consolidative process with air bronchograms . The left lung is clear and mildly hyperinflated. MEDIASTINUM: Thoracic aorta is of normal caliber. The heart is not enlarged. Right paratracheal spike nopathy measuring 2.1 cm unchanged from prior study. AP window lymph nodes measuring up to 1 cm. Subc arinal adenopathy measuring 1.6 cm. HILAR STRUCTURES: No evidence for mass. No hilar adenopathy is appreciated. OTHER: No significant abnormality. CONTRAST CT ABDOMEN AND PELVIS FINDINGS: LIVER/GB: No calcified gallstones. No space occupying hepatic lesion. Biliary tree is of normal ca liber. PANCREAS: No inflammation. No distinct mass. SPLEEN: No splenic enlargement. No lesion seen. ADRENALS: No nodule. No thickening. KIDNEYS/BLADDER: Cortical insult of the right kidney versus prior surgical intervention. Correlate c linically. No hydronephrosis. No nephrolithiasis. No distinct renal mass. BOWEL: Normal appendix. Normal bowel caliber. No inflammation. GENITAL ORGANS: No gross abnormality. LYMPH NODES: No greater than 1cm abdominal or pelvic lymph nodes are appreciated. AORTA: No significant abnormality. OSSEOUS STRUCTURES: No significant abnormality is seen. OTHER: No significant additional abnormality is seen. IMPRESSION: 1. Persistent but smaller in size right-sided pleural effusion with persistent airspace disease throu ghout the right lung which may be related to posttreatment change. No distinct mass appreciated.
== END | disposition home or self-care (01) ==
LOC: RADCTMAIN 11:31
PROVIDERS: ATTEND Internal Medicine Hematology & Oncology
DX: Z03.89 Encounter for observation for other suspected diseases and conditions ruled out (principal); C34.11 Malignant neoplasm of upper lobe, right bronchus or lung
CPT/HCPCS: 82565; 84520; 71260; 74177; 36415; Q9967

== ENCOUNTER 2021-05-03 20:14 | Inpatient (IN) | payer MEDICARE, OTHER ==
--- NOTE | 2021-05-03 21:41 | XR ---
EXAMINATION TYPE: XR chest 2V DATE OF EXAM: 05/03/2021 COMPARISON: 04/17/2021 HISTORY: Pleural effusion TECHNIQUE: 2 views FINDINGS: There is some shift of heart and mediastinum to the right side. There is airspace consolida tion and atelectasis and pleural fluid in the right lower lobe. Left lung shows some mild interstitia l infiltrate. Bony thorax is intact. IMPRESSION: There is a combination of pleural fluid and atelectasis and consolidation in the right anna ng which is slightly worse than last exam. No obvious heart failure.
--- NOTE | 2021-05-03 21:56 | ED ---
General Adult HPI - General Chief complaint: Shortness of Breath Stated complaint: SOB Time Seen by Provider: 05/03/21 20:35 Source: patient, RN notes reviewed, old records reviewed Mode of arrival: wheelchair Limitations: no limitations - History of Present Illness Initial comments: 70-year-old male presenting with cough and dyspnea. Patient had previous admission for pneumonia. This was about 6 months ago. His had a mild cough. No fevers. He reports that this is worsened over the past 24 hours. He has not been exposed to coronavirus that he knows of. He has no central chest pain. No fever. - Related Data Home Medications Medication Instructions Recorded Confirmed Aspirin [Adult Low Dose Aspirin EC] 81 mg PO DAILY 11/11/17 02/21/21 Albuterol Sulfate [Proair Hfa] 2 puff INHALATION RT-Q6H PRN 12/05/20 02/14/21 Ondansetron [Zofran] 4 mg PO Q6H PRN 12/05/20 02/14/21 carvediloL [Coreg*] 12.5 mg PO BID 12/05/20 02/21/21 oxyCODONE-APAP 10-325MG [Percocet 1 tab PO Q6HR PRN 12/05/20 02/21/21 10-325 mg] Formoterol Fumarate [Perforomist] 20 mcg INHALATION RT-BID 12/21/20 02/14/21 Ipratropium-Albuterol Nebulize 3 ml INHALATION RT-Q6H PRN 01/12/21 02/14/21 [Duoneb 0.5 mg-3 mg/3 ml Soln] Morphine Sulfate ER [Ms Contin] 15 mg PO BID PRN 01/12/21 02/14/21 Multivit-Min/Folic/Vit K/Lycop 1 tab PO DAILY 01/12/21 02/14/21 [Men's Multivitamin Tablet] Potassium Chloride [Klor-Con 20] 20 meq PO DAILY 01/12/21 02/21/21 guaiFENesin [Mucinex] 1,200 mg PO Q12HR PRN 01/12/21 02/21/21 Previous Rx's Medication Instructions Recorded Furosemide [Lasix] 20 mg PO BID 30 Days #60 tab 01/20/21 Allergies Allergy/AdvReac Type Severity Reaction Status Date / Time No Known Allergies Allergy Verified 05/03/21 20:25 Review of Systems ROS Statement: Those systems with pertinent positive or pertinent negative responses have been documented in the HPI. ROS Other: All systems not noted in ROS Statement are negative. Past Medical History Past Medical History: Cancer, Chest Pain / Angina, Heart Failure, COPD, Hypertension, Myocardial Infarction (ND), Skin Disorder Additional Past Medical History / Comment(s): chronic back pain, ND spring 2015; pt has history of PVD with LLE cellulitis, states he had vascular surgery to improve healing, lung CA, had chemo and radiation now getting immunotherapy Last Myocardial Infarction Date:: 2015 History of Any Multi-Drug Resistant Organisms: MRSA Date of last positivie culture/infection: 06/25/17 MDRO Source:: LEFT LEG Past Surgical History: Heart Catheterization With Stent, Hernia Repair, Orthopedic Surgery Additional Past Surgical History / Comment(s): left femur ORIF 40 years ago, l eft leg bypass; two stents placed in November 2019, hernia repair 2019 Past Anesthesia/Blood Transfusion Reactions: No Reported Reaction Date of Last Stent Placement:: November 2019 Past Psychological History: Anxiety Smoking Status: Former smoker Past Alcohol Use History: Heavy Past Drug Use History: None Reported - Past Family History Father Additional Family Medical History / Comment(s): lung cancer Brother(s) Additional Family Medical History / Comment(s): lung cancer General Exam Limitations: no limitations General appearance: alert, in no apparent distress Head exam: Present: atraumatic, normocephalic Eye exam: Present: normal appearance, PERRL ENT exam: Present: normal exam Neck exam: Present: normal inspection. Absent: tenderness, meningismus Respiratory exam: Present: rales, decreased breath sounds. Absent: respiratory distress Cardiovascular Exam: Present: regular rate, normal rhythm GI/Abdominal exam: Present: soft. Absent: distended, tenderness, guarding Extremities exam: Present: normal inspection, normal capillary refill. Absent: pedal edema Neurological exam: Present: alert, oriented X3, CN II-XII intact. Absent: motor sensory deficit Psychiatric exam: Present: normal affect, normal mood Skin exam: Present: warm, dry, intact Course Vital Signs 05/03/21 05/03/21 20:25 21:45 Temperature 97.7 F Pulse Rate 92 Respiratory 22 22 Rate Blood Pressure 168/89 O2 Sat by Pulse 94 L Oximetry EKG Findings - EKG Comments: EKG Findings:: EKG: Normal sinus rhythm, breathing artifact, no ST segment elevation, rate of 89, IN interval 150, QRS duration 86, QTC 479 Medical Decision Making - Medical Decision Making 70-year-old male with worsening dyspnea. History of COPD, CHF. Patient has a right lower lobe consolidation and associated effusion. He is started on antibiotics. Her additionally treated for COPD. Patient was scheduled to receive CT of the chest later this month. This has been ordered to aid in the complete diagnosis of this individual. He will be admitted to Dr. Sr with pulmonology on consult. - Lab Data Result diagrams: 05/03/21 21:42 12 21:42 Lab Results 05/03/21 05/03/21 05/03/21 Range/Units 21:42 21:42 21:42 WBC 6.5 (3.8-10.6) k/uL RBC 4.42 (4.30-5.90) m/uL Hgb 12.3 L (13.0-17.5) gm/dL Hct 39.2 (39.0-53.0) % MCV 88.7 (80.0-100.0) fL MCH 27.8 (25.0-35.0) pg MCHC 31.3 (31.0-37.0) g/dL RDW 15.3 (11.5-15.5) % Plt Count 249 (150-450) k/uL MPV 6.9 Neutrophils % 79 % Lymphocytes % 7 % Monocytes % 8 % Eosinophils % 5 % Basophils % 1 % Neutrophils # 5.1 (1.3-7.7) k/uL Lymphocytes # 0.4 L (1.0-4.8) k/uL Monocytes # 0.5 (0-1.0) k/uL Eosinophils # 0.3 (0-0.7) k/uL Basophils # 0.0 (0-0.2) k/uL Hypochromasia Slight PT 9.5 (9.0-12.0) sec INR 0.9 (<1.2) APTT 24.5 (22.0-30.0) sec Sodium 136 L (137-145) mmol/L Potassium 4.6 (3.5-5.1) mmol/L Chloride 101 (98-107) mmol/L Carbon Dioxide 27 (22-30) mmol/L Anion Gap 8 mmol/L BUN 12 (9-20) mg/dL Creatinine 0.77 (0.66-1.25) mg/dL Est GFR (CKD-EPI)AfAm >90 (>60 ml/min/1.73 sqM) Est GFR (CKD-EPI)NonAf >90 (>60 ml/min/1.73 sqM) Glucose 107 H (74-99) mg/dL Calcium 9.4 (8.4-10.2) mg/dL Magnesium 1.9 (1.6-2.3) mg/dL Total Bilirubin 0.4 (0.2-1.3) mg/dL AST 31 (17-59) U/L ALT 17 (4-49) U/L Alkaline Phosphatase 140 H (38-126) U/L Troponin I (0.000-0.034) ng/mL Total Protein 7.1 (6.3-8.2) g/dL Albumin 4.2 (3.5-5.0) g/dL Coronavirus (PCR) (Not Detectd) 05/03/21 05/03/21 Range/Units 21:42 21:42 WBC (3.8-10.6) k/uL RBC (4.30-5.90) m/uL Hgb (13.0-17.5) gm/dL Hct (39.0-53.0) % MCV (80.0-100.0) fL MCH (25.0-35.0) pg MCHC (31.0-37.0) g/dL RDW (11.5-15.5) % Plt Count (150-450) k/uL MPV Neutrophils % % Lymphocytes % % Monocytes % % Eosinophils % % Basophils % % Neutrophils # (1.3-7.7) k/uL Lymphocytes # (1.0-4.8) k/uL Monocytes # (0-1.0) k/uL Eosinophils # (0-0.7) k/uL Basophils # (0-0.2) k/uL Hypochromasia PT (9.0-12.0) sec INR (<1.2) APTT (22.0-30.0) sec Sodium (137-145) mmol/L Potassium (3.5-5.1) mmol/L Chloride (98-107) mmol/L Carbon Dioxide (22-30) mmol/L Anion Gap mmol/L BUN (9-20) mg/dL Creatinine (0.66-1.25) mg/dL Est GFR (CKD-EPI)AfAm (>60 ml/min/1.73 sqM) Est GFR (CKD-EPI)NonAf (>60 ml/min/1.73 sqM) Glucose (74-99) mg/dL Calcium (8.4-10.2) mg/dL Magnesium (1.6-2.3) mg/dL Total Bilirubin (0.2-1.3) mg/dL AST (17-59) U/L ALT (4-49) U/L Alkaline Phosphatase (38-126) U/L Troponin I 0.013 (0.000-0.034) ng/mL Total Protein (6.3-8.2) g/dL Albumin (3.5-5.0) g/dL Coronavirus (PCR) Not Detected (Not Detectd) Disposition Clinical Impression: Pneumonia, Pleural effusion Disposition: ADMITTED IP TO THIS [facility] Condition: Stable Is patient prescribed a controlled substance at d/c from ED?: No Referrals: Chris Bellamy MD [Primary Care Provider] - 1-2 days Decision to Admit Reason: Admit from EC Decision Date: 05/03/21 Decision Time: 22:51
[2021-05-03] MEDS ORDERED: methylPREDNISolone SOD SUCCI 125 MG/2 ML VIAL IV STA (22:21)
[2021-05-03] MEDS ORDERED: CEFEPIME 2 GM in SODIUM CHLORIDE 0.9% 100 ML IVPB STA (22:21)
[2021-05-03 22:25] LABS: Basophils % (A) 1 %; Eosinophils # (A) 0.3 k/uL (0-0.7); Eosinophils % (A) 5 %; HCT 39.2 % (39.0-53.0); HGB 12.3 gm/dL (13.0-17.5); Hypochromasia Slight; Lymphocytes # (A) 0.4 k/uL (1.0-4.8); Lymphocytes % (A) 7 %; MCH 27.8 pg (25.0-35.0); MCHC 31.3 g/dL (31.0-37.0); MCV 88.7 fL (80.0-100.0); Mean Platelet Volume 6.9; Monocytes # (A) 0.5 k/uL (0-1.0); Monocytes % (A) 8 %; Neutrophils # (A) 5.1 k/uL (1.3-7.7); Neutrophils % (A) 79 %; Platelet Count 249 k/uL (150-450); RBC 4.42 m/uL (4.30-5.90); RDW 15.3 % (11.5-15.5); WBC 6.5 k/uL (3.8-10.6)
[2021-05-03] MEDS ORDERED: AZITHROMYCIN 500 MG in SODIUM CHLORIDE 0.9% 250 ML IVPB ONE (22:30)
[2021-05-03 22:35] LABS: ALT 17 U/L (4-49); AST 31 U/L (17-59); African American GFR (CKD) >90 (>60 ml/min/1.73 sqM); Albumin 4.2 g/dL (3.5-5.0); Alkaline Phosphatase 140 U/L (38-126); Anion Gap 8 mmol/L; Blood Urea Nitrogen 12 mg/dL (9-20); Calcium 9.4 mg/dL (8.4-10.2); Carbon Dioxide 27 mmol/L (22-30); Chloride 101 mmol/L (98-107); Glucose 107 mg/dL (74-99); INR 0.9 (<1.2); Magnesium 1.9 mg/dL (1.6-2.3); Non-African American GFR(CKD) >90 (>60 ml/min/1.73 sqM); Partial Thromboplastin Time 24.5 sec (22.0-30.0); Potassium 4.6 mmol/L (3.5-5.1); Prothrombin Time 9.5 sec (9.0-12.0); Sodium 136 mmol/L (137-145); Total Bilirubin 0.4 mg/dL (0.2-1.3); Total Protein 7.1 g/dL (6.3-8.2)
[2021-05-03] MEDS ORDERED: ACETAMINOPHEN TAB 325 MG TAB PO PRN (22:44)
[2021-05-03] MEDS ORDERED: NALOXONE 0.4 MG/ML 1 ML VIAL IV PRN (22:44)
[2021-05-03] MEDS ORDERED: IPRATROPIUM-ALBUTEROL 3 ML NEB INHALATION STA (22:47)
[2021-05-03] MEDS ORDERED: RX INFO: IV CONTRAST WAS GIVEN 1 EACH MISC MISCELLANE PRN (22:47)
[2021-05-03] MEDS ORDERED: ALBUTEROL NEBULIZED 2.5 MG/3 ML INHALATION STA (22:47)
--- NOTE | 2021-05-03 23:45 | CT ---
EXAMINATION TYPE: CT chest w con DATE OF EXAM: 05/03/2021 COMPARISON: 01/12/2021 02/23/2021 HISTORY: RLL pneumonia CT DLP: 563.9 mGycm Automated exposure control for dose reduction was used. CONTRAST: Performed with IV Contrast, patient injected with 100 mL of Isovue 300. Images obtained from the thoracic inlet to the diaphragm with IV contrast. Heart and mediastinum are shifted slightly to the right side. Trachea deviated to the right. Thoracic aorta is intact. There is 2 cm pretracheal lymph node. There are some anterior mediastinal lymph nod es measuring up to 1 cm. There is some consolidation and atelectasis right lower lobe. There is massl tiera density measuring 6 x 4 cm at the inferior right pulmonary hilum. This is encasing the bronchi in the right lower lobe. There is mild right pleural effusion. The left lung is clear of consolidation. There is no pleural fluid on the left side. The bony thorax is intact. Sternum is intact. IMPRESSION: Masslike consolidation at the right pulmonary hilum appears not significantly different than exam. There is right pleural effusion similar to old exam. Volume loss similar to old exam. There i s not a significant progression of tumor compared to 02/23/2021 exam.
[2021-05-04] MEDS: methylPREDNISolone SOD SUCCI 125 MG/2 ML VIAL IV SCH ×2 (00:46→09:43)
--- NOTE | 2021-05-04 10:13 | US ---
EXAMINATION TYPE: US chest DATE OF EXAM: 05/04/2021 COMPARISON: NONE CLINICAL HISTORY: Markings for thoracentesis by pulmonary staff. SOB TECHNIQUE: Targeted ultrasound of the posterior lower bilateral hemithoraces EXAM MEASUREMENTS: Right Pleural Effusion pocket size: 11.1 cm Right skin surface to fluid distance: 4.4 cm Left Pleural Effusion pocket size: No fluid seen Left side marked for possible thoracentesis outside the dept. Pulmonologists are able to review the images in the patient?s EMR. IMPRESSIONS: As above
[2021-05-04] MEDS ORDERED: ONDANSETRON 4 MG TAB PO PRN (12:10)
[2021-05-04] MEDS: FORMOTEROL FUMARATE 20 MCG/2 ML NEBU INHALATION SCH ×2 (12:27→21:45)
[2021-05-04] MEDS: oxyCODONE-APAP 10-325MG 1 EACH TAB PO PRN ×2 (12:29→21:21)
[2021-05-04] MEDS: carvediloL 12.5 MG TAB PO SCH ×2 (12:29→17:54)
[2021-05-04] MEDS: ASPIRIN 81 MG PO SCH (12:29)
--- NOTE | 2021-05-04 12:35 | P.CNPUL ---
History of Present Illness Consult date: 05/04/21 Requesting physician: Fer Sr Reason for consult: dyspnea Chief complaint: Shortness of breath History of present illness: This is a very pleasant 70-year-old male patient with a known history of squamous cell carcinoma of the lung diagnosed in March 2020. At that time he was found to have right hilar mass. He had undergone chemotherapy and subsequent immunotherapy however his last treatment was about 3 months ago as the patient was having recurrent pneumonias due to the immunotherapy. He is also had recurrent right-sided pleural effusions and had undergone multiple thoracentesis most recently 02/21/2021. Fluid has been negative for malignancy. He also has a history of former smoking, chronic obstructive pulmonary disease, chronic pain. Today he developed a rather sudden onset of shortness of breath. He states he normally coughs throughout the day and had not been coughing. He was worried he may have some recurrent pleural effusion. He denied any fever, chills or night sweats. No hemoptysis. X-ray revealed pleural effusions/atelectasis and consolidation of the right lung slightly worsened compared to previous on 04/17/2021. CAT scan of the chest reveals a masslike consolidation of the right pulmonary hilum not significantly different from 02/23/2021 exam. There is a right pleural effusion similar to old exam. No significant tumor progression noted. Ultrasound of the right chest does reveal an 11.1 cm pocket, marked for thoracentesis. White count 6.5. Hemoglobin 12.3. INR 0.9. Sodium 136. Potassium 4.6. Glucose 107. AST 31. ALT 17. Alk phos 140. Troponin negative 1. ProBNP 1130. Dexter virus by PCR not detected. Patient is seen today in consultation in the emergency department. He is currently sitting up on the stretcher. Awake and alert in no acute distress. Breathing a bit easier today compared to yesterday. He is maintaining good O2 saturations in the 90s on 2 L/m per nasal cannula. Review of Systems REVIEW OF SYSTEMS: CONSTITUTIONAL: Denies any recent significant weight loss or weight gain. EYES: Denies change in vision. EARS, NOSE, MOUTH, THROAT: Denies headaches, denies sore throat. CARDIOVASCULAR: Denies chest pain, palpitations or syncopal episodes. RESPIRATORY: Positive for shortness of breath, cough, congestion no hemoptysis. GASTROINTESTINAL: Denies change in appetite, denies abdominal pain GENITOURINARY: Denies hematuria, denies infections. MUSKULOSKELETAL: Denies pain, denies swelling. INTEGUMENTARY: Denies rash, denies eczema. NEUROLOGICAL: Denies recent memory loss, no recent seizure activity. PSYCHIATRIC: Denies anxiety, denies depression. HEMATOLOGIC/LYMPHATIC: Denies anemia, denies enlarged lymph nodes. Past Medical History Past Medical History: Cancer, Chest Pain / Angina, Heart Failure, COPD, Hypertension, Myocardial Infarction ([place]), Skin Disorder Additional Past Medical History / Comment(s): chronic back pain, [place] spring 2015; pt has history of PVD with LLE cellulitis, states he had vascular surgery to improve healing, lung CA, had chemo and radiation now getting immunotherapy Last Myocardial Infarction Date:: 2015 History of Any Multi-Drug Resistant Organisms: MRSA Date of last positivie culture/infection: 06/25/17 MDRO Source:: LEFT LEG Past Surgical History: Heart Catheterization With Stent, Hernia Repair, Orthopedic Surgery Additional Past Surgical History / Comment(s): left femur ORIF 40 years ago, left leg bypass; two stents placed in November 2019, hernia repair 2019 Past Anesthesia/Blood Transfusion Reactions: No Reported Reaction Date of Last Stent Placement:: November 2019 Past Psychological History: Anxiety Smoking Status: Former smoker Past Alcohol Use History: Heavy Past Drug Use History: None Reported - Past Family History Father Additional Family Medical History / Comment(s): lung cancer Brother(s) Additional Family Medical History / Comment(s): lung cancer Medications and Allergies Home Medications Medication Instructions Recorded Confirmed Type Aspirin [Adult Low Dose Aspirin EC] 81 mg PO DAILY 11/11/17 05/03/21 History Albuterol Sulfate [Proair Hfa] 1 puff INHALATION RT-Q4H PRN 12/05/20 05/03/21 History Ondansetron [Zofran] 4 mg PO TID PRN 12/05/20 05/03/21 History carvediloL [Coreg*] 12.5 mg PO BID 12/05/20 05/03/21 History oxyCODONE-APAP 10-325MG [Percocet 1 tab PO TID PRN 12/05/20 05/03/21 History 10-325 mg] Formoterol Fumarate [Perforomist] 20 mcg INHALATION RT-BID 12/21/20 05/03/21 History Ipratropium-Albuterol Nebulize 3 ml INHALATION RT-Q6H PRN 01/12/21 05/03/21 History [Duoneb 0.5 mg-3 mg/3 ml Soln] Morphine Sulfate ER [Ms Contin] 15 mg PO BID PRN 01/12/21 05/03/21 History Multivit-Min/Folic/Vit K/Lycop 1 tab PO DAILY 01/12/21 05/03/21 History [Men's Multivitamin Tablet] Potassium Chloride [Klor-Con 20] 20 meq PO DAILY 01/12/21 05/03/21 History guaiFENesin [Mucinex] 1,200 mg PO Q12HR PRN 01/12/21 05/03/21 History Furosemide [Lasix] 20 mg PO BID 30 Days #60 tab 01/20/21 05/03/21 Rx Allergies Allergy/AdvReac Type Severity Reaction Status Date / Time No Known Allergies Allergy Verified 05/03/21 23:12 Physical Exam Vitals: Vital Signs Temp Pulse Pulse Resp BP BP Pulse Ox 05/04/21 09:00 91 141/88 97 05/04/21 06:52 91 20 147/86 96 05/04/21 05:00 87 20 130/77 96 05/04/21 03:00 90 22 151/90 98 05/04/21 01:00 88 20 143/92 98 05/04/21 00:39 89 20 145/85 98 05/03/21 23:21 88 05/03/21 23:15 86 05/03/21 22:52 72 20 147/92 96 05/03/21 21:45 22 05/03/21 20:25 97.7 F 92 22 168/89 94 L Intake and Output 05/03/21 05/04/21 05/04/21 22:59 06:59 14:59 Other: Weight 99.79 kg GENERAL EXAM: Alert, very pleasant 70-year-old male patient, on 2 L nasal cannula, comfortable in no apparent distress. HEAD: Normocephalic. EYES: Normal reaction of pupils, equal size. NOSE: Clear with pink turbinates. THROAT: No erythema or exudates. NECK: No masses, no JVD. CHEST: No chest wall deformity. LUNGS: Equal air entry with crackles, diminished in the right lung base. CVS: S1 and S2 normal with no audible murmur, regular rhythm. ABDOMEN: No hepatosplenomegaly, normal bowel sounds, no guarding or rigidity. SPINE: No scoliosis or deformity SKIN: No rashes CENTRAL NERVOUS SYSTEM: No focal deficits, tone is normal in all 4 extremities. EXTREMITIES: There is no peripheral edema. No clubbing, no cyanosis. Peripheral pulses are intact. Results - Laboratory Findings CBC and BMP: 05/03/21 21:42 05/03/21 21:42 PT/INR, D-dimer PT 9.5 sec (9.0-12.0) 05/03/21 21:42 INR 0.9 (<1.2) 05/03/21 21:42 Abnormal lab findings: Abnormal Labs 05/03/21 12 21:42 21:42 Hgb 12.3 L Lymphocytes # 0.4 L Sodium 136 L Glucose 107 H Alkaline Phosphatase 140 H - Diagnostic Findings Chest x-ray: image reviewed CT scan - chest: image reviewed Assessment and Plan Assessment: 1 Acute hypoxemic respiratory failure secondary to recurrent right-sided pleural effusion. Ultrasound measuring 11.1 cm, the patient has had multiple previous right-sided thoracentesis. Most recently 02/13/2021. Negative for malignancy. 2 Squamous cell lung cancer stage III at time of diagnosis in March 2020 with continued right hilar mass. No significant progression noted on CT scan today compared to previous in January 2021. 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 Last treatment was approximately 3 months ago. Completed chemotherapy. 4 Chronic obstructive pulmonary disease secondary to previous tobacco dependence 5 Coronary artery disease with previous stent placement 6 Hypertension 7 Peripheral vascular disease with chronic left lower extremity edema 8 Chronic back pain 9 Chronic DVT in the left lower extremity involving the Common femoral vein Plan: The patient was seen and evaluated today Chest x-ray, ultrasound of the chest reviewed We'll plan for repeat thoracentesis on the right The patient may be able to be discharged home later today Continue bronchodilators, IV Solu-Medrol for now May be considered for Pleurx catheter placement at a later date We will continue to follow and make further recommendations based on his clinical status I, the cosigning physician, performed a history & physical examination of the p atient. Lungs sounds with crackles and diminished breath sounds in the right lung. Maintaining good O2 saturations in the 90s on 2 L/m per nasal cannula. I discussed the assessment and plan of care with my nurse practitioner, Rosa Perez. I attest to the above consultation as dictated by her. Time with Patient: Greater than 30
[2021-05-04] MEDS ORDERED: CEFEPIME 2 GM in SODIUM CHLORIDE 0.9% 50 ML IVPB SCH ×2 (14:45→21:00)
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
[2021-05-04] MEDS: POTASSIUM CHLORIDE ER 20 MEQ TAB.ER PO SCH (15:27)
[2021-05-04] MEDS: IPRATROPIUM-ALBUTEROL 3 ML NEB INHALATION SCH ×2 (15:57→21:45)
[2021-05-04] MEDS: guaiFENesin 600 MG TABLET.ER PO SCH ×3 (16:22→21:21)
[2021-05-04] MEDS: methylPREDNISolone SOD SUCCI 40 MG/ML 1 ML VIAL IV SCH ×2 (17:09→21:21)
[2021-05-04] MEDS: FUROSEMIDE 20 MG TAB PO SCH (17:09)
[2021-05-04] MEDS: CEFEPIME 2 GM in SODIUM CHLORIDE 0.9% 100 ML IVPB SCH ×2 (17:54→21:19)
[2021-05-04] MEDS: MORPHINE SULFATE ER 15 MG TABLET PO PRN (18:16)
[2021-05-04] MEDS ORDERED: CEFEPIME 1 GM in SODIUM CHLORIDE 0.9% 50 ML IVPB SCH (21:00)
[2021-05-04] MEDS: BUDESONIDE 1 MG/2 ML NEBU INHALATION SCH (21:45)
[2021-05-05] MEDS: CEFEPIME 2 GM in SODIUM CHLORIDE 0.9% 100 ML IVPB SCH ×3 (08:10→21:51)
[2021-05-05] MEDS: methylPREDNISolone SOD SUCCI 40 MG/ML 1 ML VIAL IV SCH ×3 (08:10→21:52)
[2021-05-05] MEDS: MULTIVITAMINS, THERA 1 EACH TAB PO SCH (08:11)
[2021-05-05] MEDS: carvediloL 12.5 MG TAB PO SCH ×2 (08:11→17:30)
[2021-05-05] MEDS: ASPIRIN 81 MG PO SCH (08:11)
[2021-05-05] MEDS: guaiFENesin 600 MG TABLET.ER PO SCH ×4 (08:11→21:52)
[2021-05-05] MEDS: FUROSEMIDE 20 MG TAB PO SCH ×2 (08:11→17:30)
[2021-05-05] MEDS: POTASSIUM CHLORIDE ER 20 MEQ TAB.ER PO SCH (08:11)
[2021-05-05] MEDS: oxyCODONE-APAP 10-325MG 1 EACH TAB PO PRN ×2 (08:17→17:32)
[2021-05-05] MEDS: FORMOTEROL FUMARATE 20 MCG/2 ML NEBU INHALATION SCH ×2 (09:09→21:29)
[2021-05-05] MEDS: IPRATROPIUM-ALBUTEROL 3 ML NEB INHALATION SCH ×4 (09:09→21:28)
[2021-05-05] MEDS: BUDESONIDE 1 MG/2 ML NEBU INHALATION SCH ×2 (09:09→21:28)
[2021-05-05] MEDS: MORPHINE SULFATE ER 15 MG TABLET PO PRN ×2 (10:58→21:52)
--- NOTE | 2021-05-05 11:37 | P.PN ---
Subjective Progress Note Date: 05/05/21 This is a very pleasant 70-year-old male patient with a known history of squamous cell carcinoma of the lung diagnosed in March 2020. At that time he was found to have right hilar mass. He had undergone chemotherapy and subsequent immunotherapy however his last treatment was about 3 months ago as the patient was having recurrent pneumonias due to the immunotherapy. He is also had recurrent right-sided pleural effusions and had undergone multiple thoracentesis most recently 02/21/2021. Fluid has been negative for malignancy. He also has a history of former smoking, chronic obstructive pulmonary disease, chronic pain. Today he developed a rather sudden onset of shortness of breath. He states he normally coughs throughout the day and had not been coughing. He was worried he may have some recurrent pleural effusion. He denied any fever, chills or night sweats. No hemoptysis. X-ray revealed pleural effusions/atelectasis and consolidation of the right lung slightly worsened compared to previous on 04/17/2021. CAT scan of the chest reveals a masslike consolidation of the right pulmonary hilum not significantly different from 02/23/2021 exam. There is a right pleural effusion similar to old exam. No significant tumor progression noted. Ultrasound of the right chest does reveal an 11.1 cm pocket, marked for thoracentesis. White count 6.5. Hemoglobin 12.3. INR 0.9. Sodium 136. Potassium 4.6. Glucose 107. AST 31. ALT 17. Alk phos 140. Troponin negative 1. ProBNP 1130. Dexter virus by PCR not detected. Patient is seen today in consultation in the emergency department. He is currently sitting up on the stretcher. Awake and alert in no acute distress. Breathing a bit easier today compared to yesterday. He is maintaining good O2 saturations in the 90s on 2 L/m per nasal cannula. On 05/05/2021 patient is seen in follow-up on medical surgical floor, he is awake and alert, in no acute distress, he is currently on room air pulse ox of 93-97%, afebrile, hemodynamically has been stable, he states his breathing is stable, without worsening, no cough, no chest pain. Today's physical exam reveals breath sounds bilaterally, equal, with diffuse crackles. Patient remains on oral diuretics. On empiric antibiotics in the form of cefepime, and nebulized bronchodilators and IV steroids with Solu-Medrol 40 mg every 8 hours. Today's follow-up chest x-ray is pending. No fever or chills, productive acetone level was negative at 0.08 on admission, as no evidence of leukocytosis on admission labs, white blood cell count is 6.5. Hemoglobin is 12.3. Clinic ally patient looks comfortable, stable, his chest ultrasound showed 11.1 cm pocket on the right. And no fluid on the left. Objective - Vital Signs Vital signs: Vital Signs Temp 98.0 F 05/05/21 08:00 Pulse 94 05/05/21 09:40 Resp 19 05/05/21 08:00 BP 157/76 05/05/21 08:00 Pulse Ox 97 05/05/21 08:00 Intake & Output 05/04/21 05/05/21 05/05/21 18:59 06:59 18:59 Intake Total 480 Balance 480 Weight 99.79 kg Intake: Oral 480 Other: Voiding Method Urinal - Exam GENERAL EXAM: Alert, very pleasant, 70-year-old white male, on room air, breathing comfortably, sitting up in bed, with a pulse ox of 97% on room air comfortable in no apparent distress. HEAD: Normocephalic/atraumatic. EYES: Normal reaction of pupils, equal size. Conjunctiva pink, sclera white. NOSE: Clear with pink turbinates. THROAT: No erythema or exudates. NECK: No masses, no JVD, no thyroid enlargement, no adenopathy. CHEST: No chest wall deformity. Symmetrical expansion. LUNGS: Equal air entry with diffuse crackles CVS: Regular rate and rhythm, normal S1 and S2, no gallops, no murmurs, no rubs ABDOMEN: Soft, nontender. No hepatosplenomegaly, normal bowel sounds, no guarding or rigidity. EXTREMITIES: No clubbing, no edema, no cyanosis, 2+ pulses and upper and lower extremities. MUSCULOSKELETAL: Muscle strength and tone normal. SPINE: No scoliosis or deformity SKIN: No rashes CENTRAL NERVOUS SYSTEM: Alert and oriented -3. No focal deficits, tone is normal in all 4 extremities. PSYCHIATRIC: Alert and oriented -3. Appropriate affect. Intact judgment and insight. - Labs CBC & Chem 7: 05/03/21 21:42 05/03/21 21:42 Labs: Microbiology - Last 24 Hours (Table) 05/03/21 22:35 Blood Culture - Preliminary Blood No Growth after 24 hours 05/03/21 22:20 Blood Culture - Preliminary Blood No Growth after 24 hours Assessment and Plan Plan: Assessment: #1. Acute hypoxic respiratory failure related to recurrent right-sided pleural effusion, possibly malignant unless proven otherwise. Patient had 4 previous right-sided thoracentesis, twice in November 2020, once in December 2020, and once in January 2021 and pleural fluid cytology was negative on all 4 pleural fluid samples. Chest ultrasound showed 11.1 cm pleural fluid pockets. Patient has a previous history of squamous cell lung carcinoma #2. History of squamous cell lung cancer stage III at the time of diagnosis in March 2020 with continued a right hilar mass, without significant progression noted on the computed tomography scan of the chest from this admission compared most previous computed tomography scan of the chest from January 2021 #3. History of recurrent pneumonitis due to immunotherapy, and for that reason immunotherapy was placed on hold, last treatment was approximately 3 months ago, patient is status post completed chemotherapy #4. Chronic obstructive pulmonary disease secondary to previous tobacco dependence, not oxygen dependent at baseline #5. Coronary artery disease with previous stent placement #6. Hypertension #7. Peripheral vascular disease with chronic left lower extremity edema #8. Chronic back pain #9. Chronic DVT in the left lower extremity involving the common femoral vein #10. History of CHF with a mildly impaired EF of 45-50% #11. History of EtOH and smoking, in remission Plan: Continue current medical treatment Continue oral diuretics, empiric antibiotics Continue IV steroids and bronchodilators We'll repeat chest x-ray, Suspect improvement on today's chest x-ray based on physical exam No worsening dyspnea, patient is maintaining stable O2 saturations on room air May consider proceeding with right-sided thoracentesis in the pleural fluid will be sent for pleural fluid analysis, cultures, and cytology Or we may consider discharging the patient home after the thoracentesis and following up on outpatient basis in regards to the pleural fluid analysis, cytology results. Further recommendations to follow I performed a history & physical examination of the patient and discussed their management with my nurse practitioner, Lexii Gilmore. I reviewed the nurse practitioner's note and agree with the documented findings and plan of care. Lung sounds are positive for scattered rales throughout the lung rushing. The findings and the impression was discussed with the patient. I attest to the documentation by the nurse practitioner. Time with Patient: Less than 30
--- NOTE | 2021-05-05 14:41 | P.CONS ---
History of Present Illness - Reason for Consult Consult date: 05/05/21 Shortness of breath. Pleural effusion. History of lung cancer - History of Present Illness The patient is a 70-year-old white male, initially seen in consult at [facility] on 04/20/20. The patient had presented with cough productive of whitish to yellowish sputum about 2 weeks prior admission. He was hospitalized at [facility] from 04/11-04/13/20 and treated with antibiotics. He had initial improvement but then developed rapid recurrence of symptoms after discharge. He was on oral antibiotics as an outpatient without much improvement. He therefore came back to the hospital with CTA of the chest performed to rule out PE. This was negative for the same but showed bilateral pneumonia more prominent in the right lower lobe, as well as evidence of central right lung mass and massive mediastinal and hilar adenopathy. He was therefore transferred to [facility]. The patient had a bronchoscopy on 04/19/20 that showed a large tumor involving the sera, cauliflower in shape. Right side was more involved than the left. Left sided bronchi were able to be visualized but right middle and lower lobe bronchi were occluded by the sera tumor. 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 The patient improved with steroids, and antibiotics and was able to be discharged. He had an outpatient PET scan on 04/30/20 that showed uptake in retrograde vertebral, and pretracheal adenopathy, right hilar nodes, and subcarinal nodes. Groundglass opacities present through much of the right upper lobe which showed associated uptake with patchy areas. There is some nodularity in the right middle lobe and only mild uptake in one of the peripheral nodules. There is no evidence of any distant metastatic disease. Postoperative changes of the left hip a lytic lucency in the proximal right humerus were noted, without any associated uptake. He was seen for his first office visit on 05/13/20. He was started on radiation at [place] on 05/12/20. He started concurrent chemoRT with weekly Carbo/Taxol on 05/17/20. He is s/p 7 cycles completing those on 06/28/20, and RT on 06/30/[address] scans in 08/14 showed partial response. the patient had umbilical hernia surgery on 10/26/20. He called the office subsequently complaining of increasing shortness of breath. Chest x-ray showed increasing right middle and lower lobe opacification. The patient was given a course of antibiotics. CT showed increased RLL opacity, with air bronchograms. A pleural effusion was seen. Immunotherapy was held and he had a thoracentesis on 12/09/20. Cytology was negative He was rechallenged with immunotherapy on 12/19/20, but was admitted to [facility] on 12/21/20 wth recurrent SOB. He had repeat thoracentesis for recurrent pleural effusion ( 1.4 L) with cytology negative. He imoproved with steroids, updrafts and antibiotics, and was discharged on the same. He completed antibiotic after about a week. At his visit on 01/12/21 the patient reported her current shortness of breath, and was found to be hypoxic in the office. He was very reluctant to be admitted but was ultimately persuaded to go to the hospital where he was admitted for acute respiratory failure. CTA was negative for PE, but showed recurrent rt pleural effusion, and b/l lung opacities. He had 1.8 L drained from the right, and also a bronchosocpy, negative for malignancy. He required diuresis for acure fluid overload, with ECHO showing increased rt sided pressures, and EF of 45-50%. He improved with the same and steroids. He was discharged on steroids, Lasix, and O2 he had repeat thoracentesis of 1.2 L on 02/21/21 with pathology negative for malignancy. CT scan around the same time showed some patchy inflammatory-type opacities in the right lung but no evidence of recurrent malignancy. Patient was seen for follow-up in the office last in early 03/16. Multiple pleural fluid analyses have not shown evidence of malignancy. CT scans did not show any progression of opacities in the right lung either. It is felt that given his symptoms he was not a good candidate for rechallenged with immunotherapy.. Therefore the patient was continued on observation with plan for follow-up after repeat CT scans in 06/17. The patient states that he was doing reasonably well until about a few days ago. He does have a chronic cough productive of mostly clear sputum and occasionally brown sputum. He states that his cough became worse but he was unable to expectorate anything over the past 3 days. Since then his breathing also became worse. This he feels that his sputum was changing color and was mostly dark brown. He denied any hemoptysis. He therefore came into the emergency room, and had chest x-ray followed by computed tomography scan of the chest and just ultrasound. Initial studies showed evidence of stable right-sided opacities and right pleural effusion. This ultrasound confirmed pocket of fluid on the right side with none on the left. He was therefore admitted for further management and consult placed Review of Systems Constitutional: Reports fatigue Eyes: denies blurred vision, denies pain Ears: deny: decreased hearing, ear discharge, earache, tinnitus Ears, nose, mouth and throat: Denies headache, Denies sore throat Cardiovascular: Reports shortness of breath Respiratory: Reports cough with sputum, Reports dyspnea Gastrointestinal: Denies abdominal pain, Denies diarrhea, Denies nausea, Denies vomiting Genitourinary: Reports as per HPI Musculoskeletal: Reports muscle weakness Integumentary: Denies pruritus, Denies rash Neurological: Reports weakness Endocrine: Reports fatigue Hematologic/Lymphatic: Reports as per HPI Past Medical History Past Medical History: Cancer, Chest Pain / Angina, Heart Failure, COPD, Hypertension, Myocardial Infarction ([place]), Skin Disorder Additional Past Medical History / Comment(s): chronic back pain, [place] spring 2015; pt has history of PVD with LLE cellulitis, states he had vascular surgery to improve healing, lung CA, had chemo and radiation immunotherapy (last had immunotherapy about 3 months ago.) Last Myocardial Infarction Date:: 2015 History of Any Multi-Drug Resistant Organisms: MRSA Year Discovered:: 06/25/17 MDRO Source:: LEFT LEG Past Surgical History: Heart Catheterization With Stent, Hernia Repair, Orthopedic Surgery Additional Past Surgical History / Comment(s): left femur ORIF 40 years ago, left leg bypass; two stents placed in November 2019, hernia repair 2019 Past Anesthesia/Blood Transfusion Reactions: No Reported Reaction Date of Last Stent Placement:: November 2019 Past Psychological History: Anxiety Smoking Status: Former smoker Past Alcohol Use History: Heavy Additional Past Alcohol Use History / Comment(s): Drinks about three alcoholic drinks a day, used to be a heavy drinker Past Drug Use History: None Reported - Past Family History Father Additional Family Medical History / Comment(s): lung cancer Brother(s) Additional Family Medical History / Comment(s): lung cancer Medications and Allergies Home Medications Medication Instructions Recorded Confirmed Type Aspirin [Adult Low Dose Aspirin EC] 81 mg PO DAILY 11/11/17 05/03/21 History Albuterol Sulfate [Proair Hfa] 1 puff INHALATION RT-Q4H PRN 12/05/20 05/03/21 History Ondansetron [Zofran] 4 mg PO TID PRN 12/05/20 05/03/21 History carvediloL [Coreg*] 12.5 mg PO BID 12/05/20 05/03/21 History oxyCODONE-APAP 10-325MG [Percocet 1 tab PO TID PRN 12/05/20 05/03/21 History 10-325 mg] Formoterol Fumarate [Perforomist] 20 mcg INHALATION RT-BID 12/21/20 05/03/21 History Ipratropium-Albuterol Nebulize 3 ml INHALATION RT-Q6H PRN 01/12/21 05/03/21 History [Duoneb 0.5 mg-3 mg/3 ml Soln] Morphine Sulfate ER [Ms Contin] 15 mg PO BID PRN 01/12/21 05/03/21 History Multivit-Min/Folic/Vit K/Lycop 1 tab PO DAILY 01/12/21 05/03/21 History [Men's Multivitamin Tablet] Potassium Chloride [Klor-Con 20] 20 meq PO DAILY 01/12/21 05/03/21 History guaiFENesin [Mucinex] 1,200 mg PO Q12HR PRN 01/12/21 05/03/21 History Furosemide [Lasix] 20 mg PO BID 30 Days #60 tab 01/20/21 05/03/21 Rx Allergies Allergy/AdvReac Type Severity Reaction Status Date / Time No Known Allergies Allergy Verified 05/03/21 23:12 Physical Exam Vitals: Vital Signs Temp Pulse Pulse Resp BP Pulse Ox 05/05/21 12:16 93 05/05/21 12:08 90 05/05/21 09:40 94 05/05/21 09:24 92 05/05/21 09:11 90 05/05/21 08:00 98.0 F 86 19 157/76 97 05/05/21 02:00 98.2 F 86 16 148/80 93 L 05/04/21 22:14 93 05/04/21 21:58 92 05/04/21 21:57 92 05/04/21 21:46 92 05/04/21 20:00 95 17 05/04/21 19:25 98.4 F 95 17 151/78 93 L 05/04/21 17:36 98.0 F 97 16 168/80 94 L 05/04/21 16:13 84 05/04/21 15:58 88 05/04/21 14:00 98 150/98 96 Intake and Output 05/04/21 05/05/21 05/05/21 22:59 06:59 14:59 Intake Total 480 Balance 480 Intake: Oral 480 Other: Voiding Method Urinal Weight 99.79 kg - Constitutional General appearance: no acute distress - EENT Eyes: EOMI, PERRLA ENT: hearing grossly normal, normal oropharynx - Neck Neck: no lymphadenopathy Thyroid: bilateral: normal size - Respiratory Respiratory: right: diminished (At least lower one third, right lung field) - Cardiovascular Rhythm: regular Heart sounds: normal: S1, S2 - Gastrointestinal General gastrointestinal: normal bowel sounds, soft - Integumentary Integumentary: normal - Neurologic Neurologic: CNII-XII intact - Musculoskeletal Musculoskeletal: generalized weakness, strength equal bilaterally - Psychiatric Psychiatric: A&O x's 3, appropriate affect Results CBC & Chem 7: 05/03/21 21:42 05/03/21 21:42 Labs: Microbiology - Last 24 Hours (Table) 05/03/21 22:35 Blood Culture - Preliminary Blood No Growth after 24 hours 05/03/21 22:20 Blood Culture - Preliminary Blood No Growth after 24 hours Comments: Chest ultrasound report reviewed Chest x-ray: report reviewed CT scan - chest: report reviewed Assessment and Plan (1) Acute respiratory failure with hypoxia Narrative/Plan: The patient does have some chronic shortness of breath, due to partial consol idation and atelectasis in the right mid and lower lung, as well as chronic right-sided pleural effusion. Last admission for respiratory issues was in late 02/14. When seen in the office subsequently, the patient was doing reasonably well. He states that is pretty status was stable since, until about a few days ago. - Based on his presentation, pneumonia, probably in the right mid to lower lung where he has chronic consolidation and atelectasis is most likely. He does have persistent pleural effusion which however did not seem to be significantly different from before. If he does have pneumonia, he is likely to have some increase in his pleural effusion as so far it is appeared to be inflammatory. Defer to the abdomen service and pulmonary medicine for treatment, including decision regarding repeat thoracentesis. Current Visit: No Status: Acute Code(s): J96.01 - ACUTE RESPIRATORY FAILURE WITH HYPOXIA SNOMED Code(s): 75048912 (2) Pleural effusion Narrative/Plan: Imaging shows mostly stable findings. As noted the patient has had multiple thoracentesis in the past, showing inflammatory findings only. Current Visit: Yes Status: Acute Priority: High Code(s): J90 - PLEURAL EFFUSION, NOT ELSEWHERE CLASSIFIED SNOMED Code(s): 14706564 (3) Non-small cell cancer of right lung Narrative/Plan: Diagnostic and therapeutic circumstances as described. The history is admissions there was high suspicion for cancer recurrence especially given his recurrent pleural effusion. However multiple pathology is on appropriate fluid showed inflammatory changes. It is therefore felt that this was most likely due to inflammation from infectious pneumonia and/or radiation or chemotherapy- related pneumonitis. Therefore it was decided not to rechallenge the patient with immunotherapy, and he was placed on observation. So far imaging shows stable findings without any definite evidence of progression of malignancy. He has follow-up in the office already scheduled in 06/17 with repeat CAT scans. Current Visit: No Status: Chronic Priority: Medium Code(s): C34.91 - MALIGNANT NEOPLASM OF UNSP PART OF RIGHT BRONCHUS OR LUNG SNOMED Code(s): 856160601
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
--- NOTE | 2021-05-05 15:20 | XR ---
EXAMINATION TYPE: XR chest 2V DATE OF EXAM: 05/05/2021 COMPARISON: Chest x-ray 05/03/2021 HISTORY: Dyspnea, lung cancer TECHNIQUE: Frontal and lateral views of the chest are obtained. FINDINGS: Volume loss with abnormal density within the right hemithorax is again noted. There is no pneumothorax. Blunting the right costophrenic angle is present. Heart may be enlarged although the pa tient is rotated. Arthropathy noted shoulders. IMPRESSION: Findings consistent with patient's history lung cancer, associated effusion
--- NOTE | 2021-05-05 16:13 | XR ---
EXAMINATION TYPE: XR chest 1V DATE OF EXAM: 05/05/2021 COMPARISON: Chest x-ray 05/05/2021 at earlier time HISTORY: Status post thoracentesis TECHNIQUE: Single frontal view of the chest is obtained. FINDINGS: There is no interval change. IMPRESSION: No evident complication status post attempted thoracentesis.
--- NOTE | 2021-05-05 17:56 | PCN ---
PROCEDURE NOTE PROCEDURE PERFORMED: Right-sided thoracentesis. PREOPERATIVE DIAGNOSIS: Right-sided pleural effusion seen on ultrasound and on chest x-ray. POSTOPERATIVE DIAGNOSIS: No evidence of fluid could be localized with a needle. No pleural effusion noted during the procedure. PROCEDURE DETAILS: The patient was placed in a sitting upright position, the area below the right scapula was prepared in a sterile fashion and drapes were applied. The area of the fluid was earlier localized by ultrasound guidance, and at that level exactly at that level, the area was locally anesthetized which correlated to the eighth intercostal space and tip of the scapula. The area was anesthetized with lidocaine, and a 26-gauge needle was inserted, advanced into the pleural space, there was no fluid could be obtained on the multiple attempts at the level of the eighth intercostal space and tip of the scapula as well as the ninth intercostal space and tip of the scapula. No fluid could be obtained, hence no more attempts were made, and the chest x-ray postoperatively showed no evidence of any complications, no evidence of pneumothorax. The patient will be cleared to be discharged home and follow up on outpatient basis. MMODL / IJN: [id number] /
[2021-05-06 07:26] VITALS: BP 181/91; RESP 17; TEMP 98
[2021-05-06] MEDS: MULTIVITAMINS, THERA 1 EACH TAB PO SCH (07:27)
[2021-05-06] MEDS: POTASSIUM CHLORIDE ER 20 MEQ TAB.ER PO SCH (07:27)
[2021-05-06] MEDS: FUROSEMIDE 20 MG TAB PO SCH (07:27)
[2021-05-06] MEDS: oxyCODONE-APAP 10-325MG 1 EACH TAB PO PRN (07:27)
[2021-05-06] MEDS: carvediloL 12.5 MG TAB PO SCH (07:27)
[2021-05-06] MEDS: guaiFENesin 600 MG TABLET.ER PO SCH ×2 (07:27→12:00)
[2021-05-06] MEDS: ASPIRIN 81 MG PO SCH (07:27)
[2021-05-06] MEDS: CEFEPIME 2 GM in SODIUM CHLORIDE 0.9% 100 ML IVPB SCH (07:28)
[2021-05-06] MEDS: methylPREDNISolone SOD SUCCI 40 MG/ML 1 ML VIAL IV SCH (07:28)
[2021-05-06] MEDS: IPRATROPIUM-ALBUTEROL 3 ML NEB INHALATION SCH ×3 (07:43→15:09)
[2021-05-06] MEDS: FORMOTEROL FUMARATE 20 MCG/2 ML NEBU INHALATION SCH (07:43)
[2021-05-06] MEDS: BUDESONIDE 1 MG/2 ML NEBU INHALATION SCH (07:43)
[2021-05-06 12:00] VITALS: PULSE 80
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
--- NOTE | 2021-05-10 08:26 | CDI ---
Documentation Clarification Form Date: 05/10/2021 08:18:23 AM From: Ke Jackson Phone: Admit Date: 05/03/2021 10:45:00 PM Patient Name: Joe Matias Visit Number: [id number] Discharge Date: 05/06/2021 03:34:00 PM ATTENTION: The Clinical Documentation Specialists (CDI) and [facility] Coding Staff appreciate your assistance in clarifying documentation. Please respond to the clarification below the line at the bottom and electronically sign. The CDI & [facility] Coding staff will review the response and follow-up if needed. Please note: Queries are made part of the Legal Health Record. If you have any questions, please contact the author of this message via ITS. Dr. Fer Sr Acute respiratory failure with hypoxia is documented in the consult 05/05 and progress note 05/04 and 05/05 which may lack sufficient clinical evidence/support in the medical record. Additional clarification is requested. CDI requests a query to confirm. History/Risk Factors: gram negative PNA, R lung cancer Clinical Indicators: ED: O2 sat 94L, CO2 27, resp 22 Treatment: R thoracentesis, nasal cannula on admission changed to room air Please clarify if acute respiratory failure with hypoxia is a valid diagnosis? [ ] Yes, acute respiratory failure is present as evidence by (additional clinical support): [ ] No, acute respiratory failure is ruled out [ ] Other (please specify diagnosis) [ ] Unable to determine Acute respiratory failure ruled out MTDD
== END 2021-05-06 15:34 | disposition home or self-care (01) | DRG 178 ==
LOC: EC 20:14 → 5NMEDONC 22:45 → 4SSUR 05-04 16:09
PROVIDERS: ADMIT Hospitalist; ATTEND Hospitalist
PROC: 0W993ZZ Drainage of Right Pleural Cavity, Percutaneous Approach (ICD-10-PCS; principal; 2021-05-05)
DX: J15.6 Pneumonia due to other Gram-negative bacteria (principal); C34.91 Malignant neoplasm of unspecified part of right bronchus or lung; I82.502 Chronic embolism and thrombosis of unspecified deep veins of left lower extremity; J44.1 Chronic obstructive pulmonary disease with (acute) exacerbation; J44.0 Chronic obstructive pulmonary disease with (acute) lower respiratory infection; J90 Pleural effusion, not elsewhere classified; J98.11 Atelectasis; J18.9 Pneumonia, unspecified organism; D63.0 Anemia in neoplastic disease; F41.9 Anxiety disorder, unspecified; G89.4 Chronic pain syndrome; I25.10 Atherosclerotic heart disease of native coronary artery without angina pectoris; I25.2 Old myocardial infarction; I50.9 Heart failure, unspecified; I11.0 Hypertensive heart disease with heart failure; I73.9 Peripheral vascular disease, unspecified; Z20.822 Contact with and (suspected) exposure to COVID-19; Z79.82 Long term (current) use of aspirin; Z79.899 Other long term (current) drug therapy; Z80.1 Family history of malignant neoplasm of trachea, bronchus and lung; Z87.01 Personal history of pneumonia (recurrent); Z87.891 Personal history of nicotine dependence; Z92.21 Personal history of antineoplastic chemotherapy; Z92.3 Personal history of irradiation; Z95.5 Presence of coronary angioplasty implant and graft; Z86.14 Personal history of Methicillin resistant Staphylococcus aureus infection
CPT/HCPCS: 36415; 71045; 71046; 71260; 76604; 80053; 83605; 83735; 83880; 84145; 84484; 85025; 85610; 85730; 87040; 87070; 87205; 87635; 93005; 94640; 94760; 96365; 96367; 96375; 96376; 99285

== ENCOUNTER → 2021-06-07 | Outpatient (CLI) | payer MEDICARE, OTHER ==
[2021-06-07 15:00] LABS: African American GFR (CKD) >90 (>60 ml/min/1.73 sqM); Blood Urea Nitrogen 12 mg/dL (9-20); Non-African American GFR(CKD) >90 (>60 ml/min/1.73 sqM)
--- NOTE | 2021-06-08 12:19 | CT ---
EXAMINATION TYPE: CT ChestAbdPelvis w con DATE OF EXAM: 06/07/2021 COMPARISON: 05/03/2021, 02/24/2020 HISTORY: Lung cancer, COPD. CT DLP: 2310 mGycm Automated exposure control for dose reduction was used. CONTRAST: CT scan of the chest, abdomen and pelvis is performed with Oral Contrast and with IV Contrast, patien t injected with 100 mL of Isovue M300. FINDINGS: LUNGS: Right perihilar, upper, middle and lower lobe. Central dense consolidation again noted with mi ld progression with regard to the right upper lobe. There is a [id number] right pleural effusi on perfusion also mildly progressed. Subsegmental changes in the left lung is nonspecific but most typical of atelectasis. Peripheral grou ndglass changes posteriorly could been the basis of a pneumonitis or atelectasis. 5 mm nodule left anna ng base adjacent to the hemidiaphragm likely postinflammatory. MEDIASTINUM: The heart is enlarged and there is coronary artery calcium patient. Atherosclerotic raygoza ge aorta. The dense consolidation extends to the right hilum limits assessment for adenopathy. Grossl y findings appear to be stable. 1.5 cm pretracheal lymphadenopathy stable from prior exam. LIVER/GB: Hepatic dome 3 mm hypodensity too small to characterize. No gallstones.. PANCREAS: No significant abnormality is seen. SPLEEN: No significant abnormality is seen. ADRENALS: No significant abnormality is seen. KIDNEYS: Chronic appearing deformity of the right kidney with cortical loss. No hydronephrosis. There is a linear calcification involving the lower pole right kidney and upper pole which could be vascul ar.. Hypodensities within the right kidney measures 5 mm left to small to characterize but statistica lly most likely related to cysts. BOWEL: No significant abnormality is seen. LYMPH NODES: There is adenopathy within the groin measuring short axis of 1.7 cm stable from prior ex am.. Shotty retroperitoneal lymphadenopathy measuring less than centimeter in short axis stable OSSEOUS STRUCTURES: Hypertrophic and degenerative changes spine with curvature. Postsurgical change i nvolving the left femur. Chronic appearing deformity of the transverse processes on the left at L3 an d L4 sclerotic tiny foci involving both iliac bones likely benign. Hairline arthropathy shoulders. Castro ggestion of previous surgery involving the right shoulder. OTHER: Atherosclerotic change aorta. No free fluid or free air. Surgical clip in the left groin. IMPRESSION: 1. Diffuse perihilar and upper, mid and lower lung zone consolidation is again noted with mild progre ssion of consolidation within the right upper lobe. Remaining areas are stable in size and appearance . 2. Mild progression of a small to moderate right-sided pleural effusion. 3. Cardiomegaly with coronary artery calcification. 4. Pretracheal (short axis I.5 cm) and inguinal lymphadenopathy (short axis I.7 cm) stable.
== END | disposition home or self-care (01) ==
LOC: RADCTMAIN 13:13
PROVIDERS: ATTEND Internal Medicine Hematology & Oncology
DX: C34.11 Malignant neoplasm of upper lobe, right bronchus or lung (principal); E78.5 Hyperlipidemia, unspecified; J44.9 Chronic obstructive pulmonary disease, unspecified; J90 Pleural effusion, not elsewhere classified; I51.7 Cardiomegaly; I25.10 Atherosclerotic heart disease of native coronary artery without angina pectoris; R59.1 Generalized enlarged lymph nodes; Z71.3 Dietary counseling and surveillance
CPT/HCPCS: 82565; 84520; 71260; 74177; 36415; Q9967 ×2

== ENCOUNTER 2021-07-11 11:20 | Observation (INO) | payer MEDICARE, OTHER ==
--- NOTE | 2021-07-11 12:29 | XR ---
EXAMINATION TYPE: XR chest 2V DATE OF EXAM: 07/11/2021 COMPARISON: Chest x-ray May 05, 2021. CT chest June 07, 2021 HISTORY: History of lung cancer with difficulty in breathing TECHNIQUE: Frontal and lateral views of the chest are obtained. FINDINGS: There is small right pleural effusion redemonstrated. Persistent right hilar consolidation and right-sided volume loss. Left lung remains clear. Cardiac silhouette size remains stable, upper l imits of normal with silhouetting right heart border. Surgical changes bilateral humeral heads incide ntally noted. IMPRESSION: Stable small right pleural effusion. Persistent right-sided volume loss and right mid to lower lung irregular consolidation suspected posttreatment change. No significant change from most re cent studies.
[2021-07-11 13:17] LABS: Anisocytosis Slight; Basophils % (A) 0 %; Eosinophils # (A) 0.2 k/uL (0-0.7); Eosinophils % (A) 3 %; HCT 35.5 % (39.0-53.0); HGB 11.8 gm/dL (13.0-17.5); Hypochromasia Slight; Lymphocytes # (A) 0.5 k/uL (1.0-4.8); Lymphocytes % (A) 10 %; MCH 27.9 pg (25.0-35.0); MCHC 33.1 g/dL (31.0-37.0); MCV 84.2 fL (80.0-100.0); Mean Platelet Volume 6.7; Monocytes # (A) 0.4 k/uL (0-1.0); Monocytes % (A) 8 %; Neutrophils # (A) 3.5 k/uL (1.3-7.7); Neutrophils % (A) 75 %; Platelet Count 261 k/uL (150-450); RBC 4.22 m/uL (4.30-5.90); RDW 16.4 % (11.5-15.5); WBC 4.7 k/uL (3.8-10.6)
[2021-07-11 13:34] LABS: INR 0.9 (<1.2)
[2021-07-11 13:35] LABS: Partial Thromboplastin Time 23.7 sec (22.0-30.0); Prothrombin Time 9.6 sec (9.0-12.0)
[2021-07-11 13:37] LABS: ALT 15 U/L (4-49); AST 24 U/L (17-59); African American GFR (CKD) >90 (>60 ml/min/1.73 sqM); Albumin 3.9 g/dL (3.5-5.0); Alkaline Phosphatase 126 U/L (38-126); Anion Gap 6 mmol/L; Blood Urea Nitrogen 11 mg/dL (9-20); Calcium 9.2 mg/dL (8.4-10.2); Carbon Dioxide 28 mmol/L (22-30); Chloride 104 mmol/L (98-107); Glucose 106 mg/dL (74-99); Non-African American GFR(CKD) >90 (>60 ml/min/1.73 sqM); Potassium 4.7 mmol/L (3.5-5.1); Sodium 138 mmol/L (137-145); Total Bilirubin 0.5 mg/dL (0.2-1.3); Total Protein 6.6 g/dL (6.3-8.2)
--- NOTE | 2021-07-11 15:41 | CT ---
EXAMINATION TYPE: CT chest angio for PE DATE OF EXAM: 07/11/2021 COMPARISON: CT dated 06/07/2021 HISTORY: Shortness of breath CT DLP: 518 mGy.cm. Automated Exposure Control for Dose Reduction was Utilized. TECHNIQUE AND CONTRAST: CTA scan of the thorax is performed with IV Contrast, patient injected with 100 mL of Isovue 370, pul monary embolus protocol. MIP Images are created on CT scanner and reviewed. FINDINGS: No definite filling defect within the pulmonary trunk, main pulmonary arteries, lobar and segmental b ranches to suggest pulmonary embolism. Distal subsegmental branches are suboptimally assessed. The ri ght pulmonary artery measures 2.9 cm and the left pulmonary artery measures 3.2 cm. Persistent thick areas of consolidation with air bronchogram within, seen in the right perihilar loca tion as well as in the central portion of the right upper lobe and right middle lobe, not significant ly changed. Underlying infiltrative lung cancer cannot be excluded. Loss of signal of the right lung mainly the lower lobe and the middle lobe. Persistent cardia mediastinal shift to the right side. Subtle groundglass opacities at the left lung base, attention on follow-up. COPD changes of the anter ior aspect of the left upper lobe. Focal pleural-based fibrosis is also seen at that location. Persis tent large right-sided pleural effusion, grossly stable. No left-sided pleural effusion. Apparent car diomegaly. Scattered arterial atherosclerotic calcifications including coronary artery calcifications . Slightly more prominent prevascular lymph nodes measuring up to 11 mm compared to 10 mm previously, a ttention on follow-up. Pretracheal soft tissue thickening, not significantly changed compared to the previous. Persistent enlarged right paraesophageal lymph nodes, seen inferiorly in the chest. Stable left hepatic lobe tiny hypodensity. No gross aggressive lesion. IMPRESSION: No major or central pulmonary embolism. Persistent areas of consolation in the right lung with loss o f volume and sizable right-sided pleural effusion as described above. Other mild interval changes and incidental findings as detailed above.
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
[2021-07-11] MEDS ORDERED: NALOXONE 0.4 MG/ML 1 ML VIAL IV PRN (16:09)
[2021-07-11] MEDS ORDERED: ONDANSETRON 4 MG/2 ML VIAL IVP PRN (16:09)
[2021-07-11] MEDS ORDERED: ALBUTEROL NEBULIZED 2.5 MG/3 ML INHALATION PRN (16:12)
[2021-07-11] MEDS ORDERED: MORPHINE SULFATE ER 15 MG TABLET PO PRN (16:12)
[2021-07-11] MEDS ORDERED: guaiFENesin 600 MG TABLET.ER PO PRN (16:22)
[2021-07-11] MEDS: oxyCODONE-APAP 10-325MG 1 EACH TAB PO PRN (16:24)
[2021-07-11] MEDS: FORMOTEROL FUMARATE 20 MCG/2 ML NEBU INHALATION SCH (19:30)
[2021-07-11] MEDS: IPRATROPIUM-ALBUTEROL 3 ML NEB INHALATION SCH (19:30)
[2021-07-11] MEDS: FUROSEMIDE 20 MG TAB PO SCH (20:53)
[2021-07-11] MEDS: carvediloL 12.5 MG TAB PO SCH (20:53)
[2021-07-11] MEDS ORDERED: LACTULOSE 20 GM/30 ML CUP PO PRN (22:13)
[2021-07-11] MEDS ORDERED: MELATONIN 3 MG TABLET PO PRN (22:13)
[2021-07-11] MEDS ORDERED: ALPRAZolam 0.25 MG TAB PO PRN (22:13)
[2021-07-11] MEDS ORDERED: ACETAMINOPHEN TAB 325 MG TAB PO PRN (22:13)
[2021-07-11] MEDS ORDERED: CALCIUM CARBONATE 500 MG CHEWABLE PO PRN (22:13)
[2021-07-11] MEDS ORDERED: oxyCODONE-APAP 10-325MG 1 EACH TAB ONE (23:58)
[2021-07-12 05:08] VITALS: RESP 16
[2021-07-12] MEDS: IPRATROPIUM-ALBUTEROL 3 ML NEB INHALATION SCH ×3 (07:36→15:05)
[2021-07-12] MEDS: FORMOTEROL FUMARATE 20 MCG/2 ML NEBU INHALATION SCH (07:37)
[2021-07-12] MEDS: oxyCODONE-APAP 10-325MG 1 EACH TAB PO PRN (08:20)
[2021-07-12] MEDS: FUROSEMIDE 20 MG TAB PO SCH ×2 (08:21→17:53)
[2021-07-12] MEDS: carvediloL 12.5 MG TAB PO SCH ×2 (08:21→17:53)
[2021-07-12] MEDS ORDERED: ENOXAPARIN 40 MG/0.4 ML SYRINGE SQ SCH (09:00)
[2021-07-12] MEDS ORDERED: guaiFENesin 600 MG TABLET.ER PO SCH (09:00)
[2021-07-12] MEDS ORDERED: POTASSIUM CHLORIDE ER 20 MEQ TAB.ER PO SCH (09:00)
[2021-07-12 11:44] VITALS: BP 140/80; TEMP 97.9
--- NOTE | 2021-07-12 11:49 | P.CNPUL ---
History of Present Illness Consult date: 07/12/21 Requesting physician: Fer Sr Reason for consult: dyspnea, pleural effusion, abnormal CXR/CT, other Chief complaint: Shortness of breath. History of present illness: Pulmonary consult dated 07/12/2021. 71-year-old male who presents to the emergency department on 07/11, complaining of shortness of breath. The patient has a history of lung cancer. Currently, he's not receiving any treatment. He does use oxygen at night, from time to time. He's been short of breath for 2-3 days. Currently, he's on room air, and not receiving any IV fluids. Recently, my partner attempted a thoracentesis on him, but was unable to remove any fluid. The procedure was aborted. The patient denies any chest pain or chest discomfort. He denies any fever or chills. He coughs occasionally but does not produce any phlegm. He denies any nausea, vomiting, diarrhea, or abdominal pain. White count 4.7, hemoglobin 11.8, hematocrit 35.5, and platelet count is 261,000. D-dimer is 2.36. Sodium, potassium, chlorides, CO2, anion gap, BUN, and creatinine are all essentially normal. Troponin was 0.013 and N-terminal proBNP 1100. Testing for bright virus was negative. The CT angiogram showed no evidence of central pulmonary embolism. There is persistent areas of consolidation in the right lung or loss of volume, and right-sided pleural effusion. Chest x-ray shows a small stable right-sided pleural effusion, which is unchanged from an x-ray done on 06/07/2021. My partner attempted the thoracentesis on 05/05/2021. Review of Systems REVIEW OF SYSTEMS: CONSTITUTIONAL: [Negative.] NEUROLOGIC: [ Negative.] HEENT: [ Negative.] CARDIAC: [Negative.] PULMONARY: Shortness of breath. GI: [Negative.] : [Negative.] RHEUMATOLOGIC: [ Negative.] IMMUNOLOGIC: [ Negative.] ENDOCRINE: [Negative. ] DERMATOLOGIC: [Negative.] Past Medical History Past Medical History: Cancer, Chest Pain / Angina, Heart Failure, COPD, Hy pertension, Myocardial Infarction ([place]), Skin Disorder Additional Past Medical History / Comment(s): chronic back pain, [place] spring 2015; pt has history of PVD with LLE cellulitis, states he had vascular surgery to improve healing, lung CA, had chemo and radiation immunotherapy (last had immunotherapy about 3 months ago.) Last Myocardial Infarction Date:: 2015 History of Any Multi-Drug Resistant Organisms: MRSA Date of last positivie culture/infection: 06/25/17 MDRO Source:: LEFT LEG Past Surgical History: Heart Catheterization With Stent, Hernia Repair, Orthopedic Surgery Additional Past Surgical History / Comment(s): left femur ORIF 40 years ago and luisa shoulder surgery- rotator repair, left leg bypass; two stents placed in November 2019, hernia repair 2019 Past Anesthesia/Blood Transfusion Reactions: No Reported Reaction Date of Last Stent Placement:: November 2019 Past Psychological History: Anxiety Smoking Status: Former smoker Past Alcohol Use History: Heavy Additional Past Alcohol Use History / Comment(s): Drinks about three alcoholic drinks a day, used to be a heavy drinker Past Drug Use History: None Reported - Past Family History Father Additional Family Medical History / Comment(s): lung cancer Brother(s) Additional Family Medical History / Comment(s): lung cancer Medications and Allergies Home Medications Medication Instructions Recorded Confirmed Type Aspirin [Adult Low Dose Aspirin EC] 81 mg PO DAILY 11/11/17 07/11/21 History Albuterol Sulfate [Proair Hfa] 1 puff INHALATION RT-Q4H PRN 12/05/20 07/11/21 History Ondansetron [Zofran] 4 mg PO TID PRN 12/05/20 07/11/21 History carvediloL [Coreg*] 12.5 mg PO BID 12/05/20 07/11/21 History oxyCODONE-APAP 10-325MG [Percocet 1 tab PO TID PRN 12/05/20 07/11/21 History 10-325 mg] Formoterol Fumarate [Perforomist] 20 mcg INHALATION RT-BID 12/21/20 07/11/21 History Morphine Sulfate ER [Ms Contin] 15 mg PO DAILY PRN 01/12/21 07/11/21 History Multivit-Min/Folic/Vit K/Lycop 1 tab PO DAILY 01/12/21 07/11/21 History [Men's Multivitamin Tablet] Potassium Chloride [Klor-Con 20] 20 meq PO DAILY 01/12/21 07/11/21 History Furosemide [Lasix] 20 mg PO BID 30 Days #60 tab 01/20/21 07/11/21 Rx Ipratropium-Albuterol Nebulize 3 ml INHALATION RT-QID 07/11/21 07/11/21 History [Duoneb 0.5 mg-3 mg/3 ml Soln] Allergies Allergy/AdvReac Type Severity Reaction Status Date / Time No Known Allergies Allergy Verified 07/11/21 14:02 Physical Exam Osteopathic Statement: *. No significant issues noted on an osteopathic structural exam other than those noted in the History and Physical/Consult. Vitals: Vital Signs Temp Pulse Pulse Resp BP BP Pulse Ox 07/12/21 11:08 77 07/12/21 10:56 90 07/12/21 08:18 93 152/75 91 L 07/12/21 07:54 86 07/12/21 07:46 85 07/12/21 07:44 85 07/12/21 07:43 95 07/12/21 07:36 86 07/12/21 05:00 98.1 F 87 16 146/82 97 07/11/21 21:53 98.3 F 98 18 176/94 91 L 07/11/21 17:00 98.1 F 93 20 146/98 95 07/11/21 11:40 98.7 F 89 20 174/85 98 Intake and Output 07/11/21 07/12/21 07/12/21 22:59 06:59 14:59 Intake Total 590 Balance 590 Intake: Oral 590 Other: Voiding Method Toilet # Voids 2 Weight 97.522 kg No acute distress, oriented 3. No obvious respiratory distress, audible wheezing, conversational dyspnea or use of accessory muscles. The patient's on room air. Saturation is 91%. HEENT examination is grossly unremarkable. Neck supple. Full range of motion. No adenopathy thyromegaly or neck vein distention. Cardiovascular examination reveals regular rhythm rate. S1-S2 normal. No S3 or S4. No discernible murmur noted. Heart rate 77 bpm. Lungs reveal fairly clear breath sounds. Minimal rhonchi. Slight diminished breath sounds at the right base. Abdomen soft bowel sounds are heard. No masses or tenderness. Extremities are intact. No cyanosis clubbing or edema. Skin is without rash or lesion. Neurologic examination is brief but nonfocal. Results - Laboratory Findings CBC and BMP: 07/11/21 13:02 07/11/21 12:59 PT/INR, D-dimer PT 9.6 sec (9.0-12.0) 07/11/21 12:59 INR 0.9 (<1.2) 07/11/21 12:59 D-Dimer 2.36 mg/L FEU (<0.60) H 07/11/21 12:59 Abnormal lab findings: Abnormal Labs 07/11/21 07/11/21 07/11/21 12:59 12:59 12:59 RBC Hgb Hct RDW Lymphocytes # D-Dimer 2.36 H Creatinine 0.65 L Glucose 106 H Plasma Lactic Acid Elder 0.6 L 07/11/21 13:02 RBC 4.22 L Hgb 11.8 L Hct 35.5 L RDW 16.4 H Lymphocytes # 0.5 L D-Dimer Creatinine Glucose Plasma Lactic Acid Elder - Diagnostic Findings Chest x-ray: image reviewed CT scan - chest: image reviewed Assessment and Plan Assessment: Shortness of breath, chronic, which may relate to small stable right-sided pleural effusion. Previous attempt at thoracentesis was unsuccessful. History of lung cancer, currently not receiving any treatment. History of COPD. History of CHF. History of hypertension. History of myocardial infarction. History of chronic back pain. Peripheral vascular occlusive disease. History of CAD with previous stent placement. Prior history of tobacco use. Plan: Plan dated 07/12/2021. The patient's chest x-ray and CAT scan looks relatively stable. My partner attempted thoracentesis in late 2020, and had to abort the procedure as no fluid could be obtained or removed. I suppose one could get an ultrasound of the right chest, and see if there is any free flowing fluid which made be amenable to thoracentesis. If thoracentesis is contemplated, would probably have interventional radiology do the procedure with ultrasound guidance. We will continue to follow, and add recommendations where appropriate. Prognosis is guarded. Time with Patient: Greater than 30
--- NOTE | 2021-07-12 12:22 | P.CONS ---
History of Present Illness - Reason for Consult Consult date: 07/12/21 lung cancer Requesting physician: Zev Garg - Chief Complaint SOB - History of Present Illness Mr. Matias is a pleasant pt of Dr. Ignacio initially seen in consult at [facility] 04/20/20 when he presented with productive cough, thick discolored sputum x 2 weeks. He had been hospitalized at [facility] [place] from 04/11-04/13/20 and treated with antibiotics. He had initial improvement but, had rapid recurrence of symptoms after discharge despite continuation of abx. On admit CTA was negative for PE but, showed bilateral pneumonia more prominent in the right lower lobe, as well as evidence of central right lung mass and massive mediastinal and hilar adenopathy. Bronchoscopy 04/19/20 showed a large tumor involving the sera, cauliflower in shape. Right side was more involved than the left. Left sided bronchi were able to be visualized but, right middle and lower lobe bronchi were occluded. 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 Staging PET 04/30/20 showed uptake in retrograde vertebral, and pretracheal adenopathy, right hilar nodes, and subcarinal nodes. Groundglass opacities present through much of the right upper lobe which showed associated uptake with patchy areas. There is some nodularity in the right middle lobe and only mild uptake in one of the peripheral nodules. There was no evidence of any distant metastatic disease. He was seen for his first office visit on 05/13/20. He was started on radiation at [facility] on 05/12/20. He started concurrent chemoRT with weekly Carbo/Taxol on 05/17/20, completing chemo 06/28/20, and RT on 06/30/20. Posttreatment CT 08/14 showed partial response. He was placed on maintenance imfinzi 09/01/20 and had 4 cycles. Due to recurrent pulmonary c/o, COPD exacerbations, it was stopped. Pt has had recurrent pleural effusions, all cytology has been negative for malignancy. He has had multiple admits in the last 8 months. Imaging has not shown evidence of recurrence. He did have covid infection late last year. CT scans in May 2021 show persistent, stable right-sided opacity with possibly some new extension into the right upper lobe, but no actual masses. Stable borderline retroperitoneal and right inguinal nodes are again noted. He is current on f/u. Pt admitted for c/o SOB, he states he feels good today but just "can't take a deep breath like I used to". He does have productive cough. Denies fever, nausea, appetite is ok, no GI c/o. CTA neg for PE, CXR rt pleural effusion. Review of Systems 10 point ROS is neg except as stated in HPI Past Medical History Past Medical History: Cancer, Chest Pain / Angina, Heart Failure, COPD, Hypertension, Myocardial Infarction ([place]), Skin Disorder Additional Past Medical History / Comment(s): chronic back pain, [place] spring 2015; pt has history of PVD with LLE cellulitis, states he had vascular surgery to improve healing, lung CA, had chemo and radiation immunotherapy (last had immunotherapy about 3 months ago.) Last Myocardial Infarction Date:: 2015 History of Any Multi-Drug Resistant Organisms: MRSA Year Discovered:: 06/25/17 MDRO Source:: LEFT LEG Past Surgical History: Heart Catheterization With Stent, Hernia Repair, Orthopedic Surgery Additional Past Surgical History / Comment(s): left femur ORIF 40 years ago and luisa shoulder surgery- rotator repair, left leg bypass; two stents placed in November 2019, hernia repair 2019 Past Anesthesia/Blood Transfusion Reactions: No Reported Reaction Date of Last Stent Placement:: November 2019 Past Psychological History: Anxiety Smoking Status: Former smoker Past Alcohol Use History: Heavy Additional Past Alcohol Use History / Comment(s): Drinks about three alcoholic drinks a day, used to be a heavy drinker Past Drug Use History: None Reported - Past Family History Father Additional Family Medical History / Comment(s): lung cancer Brother(s) Additional Family Medical History / Comment(s): lung cancer Medications and Allergies Home Medications Medication Instructions Recorded Confirmed Type Aspirin [Adult Low Dose Aspirin EC] 81 mg PO DAILY 11/11/17 07/11/21 History Albuterol Sulfate [Proair Hfa] 1 puff INHALATION RT-Q4H PRN 12/05/20 07/11/21 History Ondansetron [Zofran] 4 mg PO TID PRN 12/05/20 07/11/21 History carvediloL [Coreg*] 12.5 mg PO BID 12/05/20 07/11/21 History oxyCODONE-APAP 10-325MG [Percocet 1 tab PO TID PRN 12/05/20 07/11/21 History 10-325 mg] Formoterol Fumarate [Perforomist] 20 mcg INHALATION RT-BID 12/21/20 07/11/21 History Morphine Sulfate ER [Ms Contin] 15 mg PO DAILY PRN 01/12/21 07/11/21 History Multivit-Min/Folic/Vit K/Lycop 1 tab PO DAILY 01/12/21 07/11/21 History [Men's Multivitamin Tablet] Potassium Chloride [Klor-Con 20] 20 meq PO DAILY 01/12/21 07/11/21 History Furosemide [Lasix] 20 mg PO BID 30 Days #60 tab 01/20/21 07/11/21 Rx Ipratropium-Albuterol Nebulize 3 ml INHALATION RT-QID 07/11/21 07/11/21 History [Duoneb 0.5 mg-3 mg/3 ml Soln] Allergies Allergy/AdvReac Type Severity Reaction Status Date / Time No Known Allergies Allergy Verified 07/11/21 14:02 Physical Exam Vitals: Vital Signs Temp Pulse Pulse Resp BP BP Pulse Ox 07/12/21 08:18 93 152/75 91 L 07/12/21 07:54 86 07/12/21 07:46 85 07/12/21 07:44 85 07/12/21 07:43 95 07/12/21 07:36 86 07/12/21 05:00 98.1 F 87 16 146/82 97 07/11/21 21:53 98.3 F 98 18 176/94 91 L 07/11/21 17:00 98.1 F 93 20 146/98 95 07/11/21 11:40 98.7 F 89 20 174/85 98 Intake and Output 07/11/21 07/12/21 07/12/21 22:59 06:59 14:59 Intake Total 590 Balance 590 Intake: Oral 590 Other: Voiding Method Toilet # Voids 2 Weight 97.522 kg - Constitutional General appearance: cooperative, no acute distress, obese - EENT Eyes: anicteric sclerae, EOMI ENT: hearing grossly normal - Neck Neck: no lymphadenopathy - Respiratory Respiratory: bilateral: diminished - Cardiovascular Rhythm: regular Heart sounds: normal: S1, S2 Abnormal Heart Sounds: no systolic murmur, no diastolic murmur, no rub, no S3 Gallop, no S4 Gallop, no click, no other leg Peripheral Edema: bilateral: None - Gastrointestinal General gastrointestinal: no absent bowel sounds, no decreased bowel sounds, no distended, no hepatomegaly, no hyperactive bowel sounds, normal bowel sounds, no organomegaly, no rigid, no scaphoid, soft, no splenomegaly, no tenderness, no umbilical hernia, no ventral hernia - Integumentary Integumentary: normal - Neurologic Neurologic: CNII-XII intact - Musculoskeletal Musculoskeletal: strength equal bilaterally - Psychiatric Psychiatric: A&O x's 3, appropriate affect, intact judgment & insight Results CBC & Chem 7: 07/11/21 13:02 07/11/21 12:59 Labs: Abnormal Lab Results - Last 24 Hours (Table) 07/11/21 07/11/21 07/11/21 Range/Units 12:59 12:59 12:59 RBC (4.30-5.90) m/uL Hgb (13.0-17.5) gm/dL Hct (39.0-53.0) % RDW (11.5-15.5) % Lymphocytes # (1.0-4.8) k/uL D-Dimer 2.36 H (<0.60) mg/L FEU Creatinine 0.65 L (0.66-1.25) mg/dL Glucose 106 H (74-99) mg/dL Plasma Lactic Acid Elder 0.6 L (0.7-2.0) mmol/L 07/11/21 Range/Units 13:02 RBC 4.22 L (4.30-5.90) m/uL Hgb 11.8 L (13.0-17.5) gm/dL Hct 35.5 L (39.0-53.0) % RDW 16.4 H (11.5-15.5) % Lymphocytes # 0.5 L (1.0-4.8) k/uL D-Dimer (<0.60) mg/L FEU Creatinine (0.66-1.25) mg/dL Glucose (74-99) mg/dL Plasma Lactic Acid Elder (0.7-2.0) mmol/L Chest x-ray: report reviewed CT scan - chest: report reviewed Assessment and Plan (1) Pleural effusion Narrative/Plan: Pending evaluation by Pulmonary. May or may not have thoracentesis. Current Visit: Yes Status: Acute Priority: High Code(s): J90 - PLEURAL EFFUSION, NOT ELSEWHERE CLASSIFIED SNOMED Code(s): 54298217 (2) Non-small cell cancer of right lung Narrative/Plan: Pt is on observation. He is current on f/u. He has imaging and f/u in 2 months. Current Visit: No Status: Chronic Priority: Medium Code(s): C34.91 - MALIGNANT NEOPLASM OF UNSP PART OF RIGHT BRONCHUS OR LUNG SNOMED Code(s): 927923119 Plan: Pt has had multiple admits for similar complaints. His symptoms have improved since admit. No acute changes on imaging to suggest recurrence of malignancy or that presenting symptoms are a direct results of recurrent malignancy. Pending Pulm evaluation of pt and recommendations. IM has provided pt with supportive medications. Pt is ok from Oncology standpoint to be discharged once cleared by Attending and Consulting MDs. attests: I have performed H&P, seen and examined pt, developed impression and plan of care. Discussed with dictator. Agree with dictation, documented as a scribe.
[2021-07-12] MEDS ORDERED: BUDESONIDE 1 MG/2 ML NEBU INHALATION SCH (13:18)
[2021-07-12] MEDS ORDERED: methylPREDNISolone SOD SUCCI 40 MG/ML 1 ML VIAL IV STA (13:18)
[2021-07-12 15:17] VITALS: PULSE 86
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
== END 2021-07-12 19:24 ==
LOC: EC 11:20 → 5NMEDONC 16:21
PROVIDERS: ADMIT Hospitalist; ATTEND Hospitalist
DX: J44.0 Chronic obstructive pulmonary disease with (acute) lower respiratory infection (principal); J44.1 Chronic obstructive pulmonary disease with (acute) exacerbation; J18.9 Pneumonia, unspecified organism; J91.8 Pleural effusion in other conditions classified elsewhere; C34.91 Malignant neoplasm of unspecified part of right bronchus or lung; D63.0 Anemia in neoplastic disease; Z20.822 Contact with and (suspected) exposure to COVID-19; I11.0 Hypertensive heart disease with heart failure; I82.502 Chronic embolism and thrombosis of unspecified deep veins of left lower extremity; I25.10 Atherosclerotic heart disease of native coronary artery without angina pectoris; R59.0 Localized enlarged lymph nodes; I73.9 Peripheral vascular disease, unspecified; I25.2 Old myocardial infarction; G89.4 Chronic pain syndrome; M54.9 Dorsalgia, unspecified; E66.9 Obesity, unspecified; Z68.30 Body mass index [BMI] 30.0-30.9, adult; Z92.3 Personal history of irradiation; Z79.899 Other long term (current) drug therapy; Z79.82 Long term (current) use of aspirin; Z86.14 Personal history of Methicillin resistant Staphylococcus aureus infection; F41.9 Anxiety disorder, unspecified; Z86.16 Personal history of COVID-19; Z87.891 Personal history of nicotine dependence; Z92.21 Personal history of antineoplastic chemotherapy; Z95.5 Presence of coronary angioplasty implant and graft; Z80.1 Family history of malignant neoplasm of trachea, bronchus and lung
CPT/HCPCS: 99285; 96374; 96372; 36415; 94640 ×2; 94760; 93005; 85379; 83880; 80053; 83605; 84484; 85025; 85610; 85730; 87635; 71046; 71275; G0378 ×2; J2920; J1650; Q9967

== ENCOUNTER → 2021-09-05 | Outpatient (CLI) | payer MEDICARE, OTHER ==
[2021-09-05 11:01] LABS: African American GFR (CKD) >90 (>60 ml/min/1.73 sqM); Blood Urea Nitrogen 16 mg/dL (9-20); Non-African American GFR(CKD) >90 (>60 ml/min/1.73 sqM)
--- NOTE | 2021-09-05 12:47 | CT ---
EXAMINATION TYPE: CT ChestAbdPelvis w con DATE OF EXAM: 09/05/2021 COMPARISON: CT dated 06/07/2021 HISTORY: LUNG CA CT DLP: 1914 mGycm Automated exposure control for dose reduction was used. CONTRAST: CT scan of the chest, abdomen and pelvis is performed without Oral Contrast and with IV Contrast, pat ient injected with 100ML mL of Isovue 300. FINDINGS: LUNGS: Persistent thick infiltration/consolidation along the central portion of the right upper, midd le and lower lobes with air bronchogram within, likely representing postradiation changes however res idual cancer cannot be excluded. The previously seen infiltration at the peripheral aspect of the rig ht upper lobe has resolved in the interim. Smaller right-sided pleural effusion yet still appreciated . No definite new or progressive lung lesion identified. Patent trachea and main bronchi. No left-miguel ed pleural effusion. MEDIASTINUM: Persistent cardiomediastinal shift to the right side. Cardiomegaly, coronary and arteria l atherosclerotic calcifications. No pericardial effusion. Dilated left pulmonary artery measuring up to 3.6 cm, suggestive of pulmonary hypertension. Stable right hilar, subcarinal and right pretrachea l soft tissue thickening measuring up to 16mm. The prominent prevascular subcentimeter lymph nodes ar e also stable without interval progression. No progressive lymphadenopathy in the chest. OTHER: Unchanged visualized bones with no aggressive bone lesion. LIVER/GB: Stable left hepatic lobe cyst. Unremarkable gallbladder. PANCREAS: No significant abnormality is seen. SPLEEN: No significant abnormality is seen. ADRENALS: No significant abnormality is seen. KIDNEYS: Stable right renal cortical scarring/defects and scattered calcifications. Unremarkable left kidney. BOWEL: No significant abnormality is seen. REPRODUCTIVE ORGANS: No gross abnormality seen. LYMPH NODES: Stable prominent bilateral inguinal lymph nodes with preserved fatty hilum without inter selina progression, measuring up to 18 mm on the left side. No other pathologically enlarged lymph nodes in the abdomen or the pelvis. OSSEOUS STRUCTURES: Unchanged visualized bones with no aggressive bone lesion. OTHER: Scattered arterial atherosclerotic calcifications. No sizable ascites. Fatty infiltration of t he left upper thigh muscles. IMPRESSION: The previously seen peripheral right upper lobe infiltration has decreased in the interim. Persistent thick consolidation/atelectasis along the central portion of the right lung as detailed above, likel y related to postradiation changes however residual lung cancer cannot be excluded. Smaller right-sided pleural effusion. No new or progressive lung lesion. Stable right hilar and media stinal soft tissue thickening and prominent perivascular lymph nodes as well as the prominent inguina l lymph nodes. No evidence of metastatic disease seen in the chest, abdomen or the pelvis otherwise. Incidental find ings as described above.
== END | disposition home or self-care (01) ==
LOC: RADCTMAIN 10:07
PROVIDERS: ATTEND Internal Medicine Hematology & Oncology
DX: Z03.89 Encounter for observation for other suspected diseases and conditions ruled out (principal); C34.11 Malignant neoplasm of upper lobe, right bronchus or lung
CPT/HCPCS: 82565; 84520; 71260; 74177; 36415; Q9967

== ENCOUNTER → 2022-01-09 | Outpatient (CLI) | payer MEDICARE, OTHER ==
[2022-01-09 11:37] LABS: African American GFR (CKD) >90 (>60 ml/min/1.73 sqM); Blood Urea Nitrogen 9 mg/dL (9-20); Non-African American GFR(CKD) >90 (>60 ml/min/1.73 sqM)
--- NOTE | 2022-01-09 15:37 | CT ---
EXAMINATION TYPE: CT ChestAbdPelvis w con CT DLP: 2014.7 mGycm, Automated exposure control for dose reduction was used. DATE OF EXAM: 01/09/2022 12:40 PM COMPARISON: 09/06/2011 CLINICAL INDICATION:Male, 71 years old with history of M54.50 LOW BACK PAIN, Hx of lung CA. Follow up Technique: Multiple axial images of the chest, abdomen, and pelvis were obtained. Two-dimensional cor onal and sagittal reconstructions were obtained. Contrast used:100 ML mL of Isovue 300 with IV Contrast, Oral contrast used: with Oral Contrast Findings: CHEST: LUNGS/ PLEURA: There is7 persistent small to moderate right pleural effusion with associated consolid ation/atelectasis changes within the right upper lobe. Overall morphology is not significantly change d from 09/05/2021. Thick central consolidation changes along the right inferior bronchus is again rede monstrated and not significantly changed. These findings likely represent postradiation changes. AIRWAY: Patent and unremarkable. HEART heart is mildly enlarged for size. There is moderate to severe coronary artery atherosclerosis. MEDIASTINUM: Prevascular space lymph nodes measuring up to 9 mm in short axis are not significantly c hanged from immediate prior given differences in technique. Hazy soft tissue appearance of the right low paratracheal region is not significantly changed from prior. VASCULATURE: No aortic aneurysm. No evidence for pulmonary embolus. MUSCULOSKELETAL: No acute osseous abnormalities. Postsurgical changes of the right proximal humerus. SOFT TISSUES/LYMPH NODES: Unremarkable. LOWER NECK: No significant findings. ABDOMEN: ABDOMEN LIVER: Unremarkable GALLBLADDER AND BILE DUCTS: Unremarkable. PANCREAS: Unremarkable. SPLEEN: Unremarkable. ADRENAL GLANDS: Unremarkable. KIDNEYS AND URETERS: No evidence of hydronephrosis. No evidence of obstructing calculus. There is jadyn al sinus calcifications and could be nonobstructing calculi versus vascular atherosclerosis calcifica tions. PELVIS BLADDER: Unremarkable REPRODUCTIVE: Unremarkable. ABDOMEN & PELVIS STOMACH AND BOWEL: No evidence of bowel obstruction. PERITONEUM: No evidence of pneumoperitoneum or free fluid. VASCULATURE: Moderate atherosclerotic calcifications are present throughout the abdominal aorta and i ts branches. MUSCULOSKELETAL: No acute osseous abnormalities. Fixation changes to the left femur. Hardware appears intact. No evidence of fracture. There is persistent deformity and multilevel moderate to severe dis c degeneration changes throughout the spine with L2 vertebral body demonstrating wedge compression th ere is scoliosis changes also present.. Overall the which compression is not significantly changed fr om prior on 09/05/2021. LYMPH NODES: No gross evidence for lymphadenopathy. SOFT TISSUE/ABDOMINAL WALL: Bilateral inguinal lymph nodes with fatty hilum noted measuring up to 2.1 cm on the left and 1.7 cm on the right. This are no significantly changed from prior. IMPRESSION: 1. Persistent moderate to severe degeneration changes of the spine with wedge compression of L2 whic h is not significantly changed from priors dating back to at least 06/07/2021.. 2. Posttreatment changes to the lungs with persistent post radiation interstitial lung disease and c onsolidation. There remains a small to moderate right pleural effusion. Lymphadenopathy within the me diastinum including soft tissue haziness near the right low paratracheal region is felt to be similar .
== END | disposition home or self-care (01) ==
LOC: RADCTMAIN 10:36
PROVIDERS: ATTEND Internal Medicine Hematology & Oncology
DX: Z03.89 Encounter for observation for other suspected diseases and conditions ruled out (principal); C34.11 Malignant neoplasm of upper lobe, right bronchus or lung
CPT/HCPCS: 82565; 84520; 71260; 74177; 36415; Q9967 ×2

== ENCOUNTER 2022-03-23 22:02 | Inpatient (IN) | payer MEDICARE, OTHER ==
[2022-03-23] MEDS ORDERED: IPRATROPIUM-ALBUTEROL 3 ML NEB INHALATION STA ×2 (22:20→23:46)
--- NOTE | 2022-03-23 22:20 | ED ---
SOB HPI - General Chief Complaint: Shortness of Breath Stated Complaint: SOB/Chest pain Time Seen by Provider: 03/23/22 22:19 Source: patient, family, RN notes reviewed, old records reviewed Mode of arrival: wheelchair Limitations: no limitations - History of Present Illness Initial Comments: This is a 71-year-old male to the emergency department for evaluation presented today for evaluation regards to shortness of breath. History of COPD. Also has history of lung cancer also has history of heart disease and heart failure. Patient denies any fevers. Has recent history of a fusion. No recent travel history or sick contacts. MD Complaint: shortness of breath, cough, pain with inspiration -: days(s) Severity: moderate Severity scale (1-10): 7 Quality: aching Consistency: constant Improves With: nothing Worsens With: exertion, movement Known History Of: COPD, congestive heart failure, other (Lung cancer) Context: recent URI, anxiety, recent illness Associated Symptoms: pain with inspiration, fever, orthopnea Treatments Prior to Arrival: none - Related Data Home Medications Medication Instructions Recorded Confirmed Aspirin [Adult Low Dose Aspirin EC] 81 mg PO DAILY 11/11/17 07/11/21 Albuterol Sulfate [Proair Hfa] 1 puff INHALATION RT-Q4H PRN 12/05/20 07/11/21 Ondansetron [Zofran] 4 mg PO TID PRN 12/05/20 07/11/21 carvediloL [Coreg*] 12.5 mg PO BID 12/05/20 07/11/21 oxyCODONE-APAP 10-325MG [Percocet 1 tab PO TID PRN 12/05/20 07/11/21 10-325 mg] Formoterol Fumarate [Perforomist] 20 mcg INHALATION RT-BID 12/21/20 07/11/21 Morphine Sulfate ER [Ms Contin] 15 mg PO DAILY PRN 01/12/21 07/11/21 Multivit-Min/Folic/Vit K/Lycop 1 tab PO DAILY 01/12/21 07/11/21 [Men's Multivitamin Tablet] Potassium Chloride [Klor-Con 20] 20 meq PO DAILY 01/12/21 07/11/21 Ipratropium-Albuterol Nebulize 3 ml INHALATION RT-QID 07/11/21 07/11/21 [Duoneb 0.5 mg-3 mg/3 ml Soln] Previous Rx's Medication Instructions Recorded Furosemide [Lasix] 20 mg PO BID 30 Days #60 tab 01/20/21 Doxycycline [Vibramycin] 100 mg PO BID #10 capsule 07/12/21 guaiFENesin [Mucinex] 600 mg PO Q12HR #14 tablet 07/12/21 predniSONE 0 mg PO DIRECTED #10 tab 07/12/21 Allergies Allergy/AdvReac Type Severity Reaction Status Date / Time No Known Allergies Allergy Verified 07/11/21 14:02 Review of Systems ROS Statement: Those systems with pertinent positive or pertinent negative responses have been documented in the HPI. ROS Other: All systems not noted in ROS Statement are negative. Past Medical History Past Medical History: Cancer, Chest Pain / Angina, Heart Failure, COPD, Hypertension, Myocardial Infarction ([place]), Skin Disorder Additional Past Medical History / Comment(s): chronic back pain, [place] spring 2015; pt has history of PVD with LLE cellulitis, states he had vascular surgery to improve healing, lung CA, had chemo and radiation immunotherapy (last had immunotherapy about 3 months ago.) Last Myocardial Infarction Date:: 2015 History of Any Multi-Drug Resistant Organisms: MRSA Date of last positivie culture/infection: 06/25/17 MDRO Source:: LEFT LEG Past Surgical History: Heart Catheterization With Stent, Hernia Repair, Orthopedic Surgery Additional Past Surgical History / Comment(s): left femur ORIF 40 years ago and luisa shoulder surgery- rotator repair, left leg bypass; two stents placed in November 2019, hernia repair 2019 Past Anesthesia/Blood Transfusion Reactions: No Reported Reaction Date of Last Stent Placement:: November 2019 Past Psychological History: Anxiety Smoking Status: Former smoker Past Alcohol Use History: Heavy Past Drug Use History: None Reported - Past Family History Father Additional Family Medical History / Comment(s): lung cancer Brother(s) Additional Family Medical History / Comment(s): lung cancer General Exam Limitations: no limitations General appearance: alert, in no apparent distress Head exam: Present: atraumatic, normocephalic, normal inspection Eye exam: Present: normal appearance, PERRL, EOMI. Absent: scleral icterus, conjunctival injection, periorbital swelling ENT exam: Present: normal exam, mucous membranes moist Neck exam: Present: normal inspection. Absent: tenderness, meningismus, lymphadenopathy Respiratory exam: Present: normal lung sounds bilaterally. Absent: respiratory distress, wheezes, rales, rhonchi, stridor Cardiovascular Exam: Present: regular rate, normal rhythm, normal heart sounds. Absent: systolic murmur, diastolic murmur, rubs, gallop, clicks GI/Abdominal exam: Present: soft, normal bowel sounds. Absent: distended, tenderness, guarding, rebound, rigid Extremities exam: Present: normal inspection, full ROM, normal capillary refill. Absent: tenderness, pedal edema, joint swelling, calf tenderness Back exam: Present: normal inspection Neurological exam: Present: alert, oriented X3, CN II-XII intact Psychiatric exam: Present: normal affect, normal mood Skin exam: Present: warm, dry, intact, normal color. Absent: rash Course Vital Signs 03/23/22 03/23/22 03/23/22 22:13 22:43 22:50 Temperature 98.1 F Pulse Rate 84 84 84 Respiratory 18 Rate Blood Pressure 167/85 O2 Sat by Pulse 95 Oximetry - Reevaluation(s) Reevaluation #1: 03/23/22 22:32 Medical records reviewed Reevaluation #2: 03/23/22 23:49 Patient has mild to no improvement here in the ER Reevaluation #3: 03/23/22 23:49 Patient informed results and questions are answered - Consultations Consultation #1: Spoke with sound physicians who agree to admit this patient Medical Decision Making - Medical Decision Making 71-year-old male DF for complicated multifactorial respiratory failure hypoxic. Patient severely short of breath here in the ER especially with exertion. Patient started on antibiotics and treatment, will admit for pulmonary consult regarding effusion - Lab Data Result diagrams: 03/23/22 22:42 03/23/22 22:42 Lab Results 03/23/22 03/23/22 03/23/22 Range/Units 22:42 22:42 22:42 WBC 9.6 (3.8-10.6) k/uL RBC 4.18 L (4.30-5.90) m/uL Hgb 12.2 L (13.0-17.5) gm/dL Hct 37.3 L (39.0-53.0) % MCV 89.2 (80.0-100.0) fL MCH 29.2 (25.0-35.0) pg MCHC 32.7 (31.0-37.0) g/dL RDW 15.2 (11.5-15.5) % Plt Count 210 (150-450) k/uL MPV 7.7 Neutrophils % 92 % Lymphocytes % 3 % Monocytes % 3 % Eosinophils % 0 % Basophils % 0 % Neutrophils # 8.9 H (1.3-7.7) k/uL Lymphocytes # 0.3 L (1.0-4.8) k/uL Monocytes # 0.3 (0-1.0) k/uL Eosinophils # 0.0 (0-0.7) k/uL Basophils # 0.0 (0-0.2) k/uL Hypochromasia Slight PT 9.7 (9.0-12.0) sec INR 0.9 (<1.2) APTT 22.3 (22.0-30.0) sec Sodium 140 (137-145) mmol/L Potassium 4.5 (3.5-5.1) mmol/L Chloride 104 (98-107) mmol/L Carbon Dioxide 25 (22-30) mmol/L Anion Gap 11 mmol/L BUN 21 H (9-20) mg/dL Creatinine 0.68 (0.66-1.25) mg/dL Est GFR (CKD-EPI)AfAm >90 (>60 ml/min/1.73 sqM) Est GFR (CKD-EPI)NonAf >90 (>60 ml/min/1.73 sqM) Glucose 137 H (74-99) mg/dL Calcium 8.9 (8.4-10.2) mg/dL Magnesium 1.9 (1.6-2.3) mg/dL Total Bilirubin 0.4 (0.2-1.3) mg/dL AST 24 (17-59) U/L ALT 20 (4-49) U/L Alkaline Phosphatase 131 H (38-126) U/L Total Protein 6.5 (6.3-8.2) g/dL Albumin 4.1 (3.5-5.0) g/dL - EKG Data -: EKG Interpreted by Me (EKG is sinus 81 MI 140 QRS 101 QTc 419) - Radiology Data Radiology results: report reviewed (Chest x-ray shows recurrent pleural effusion pulmonary edema and CHF with underlying pneumonia), image reviewed Critical Care Time Critical Care Time: Yes Total Critical Care Time: 31 Disposition Clinical Impression: Acute respiratory failure with hypoxia, Non-small cell cancer of right lung, COPD (chronic obstructive pulmonary disease), Hypoxia, Pleural effusion, Congestive heart failure, Acute pulmonary edema, Community acquired pneumonia, Acute exacerbation of chronic obstructive pulmonary disease Disposition: ADMITTED IP TO THIS HOSP Condition: Serious Is patient prescribed a controlled substance at d/c from ED?: No Referrals: None,Stated [REFERRING] - 1-2 days Time of Disposition: 23:55
--- NOTE | 2022-03-23 22:43 | XR ---
EXAMINATION TYPE: XR chest 1V portable DATE OF EXAM: 03/23/2022 COMPARISON: 02/05/2022 HISTORY: Short of breath TECHNIQUE: Single view FINDINGS: There is elevated right diaphragm with infiltrate and atelectasis right lower lobe. There i s coarse infiltrate in the left lung. There is mild pulmonary congestion. There are chest leads. IMPRESSION: There is increasing infiltrate and atelectasis and volume loss in the right hemithorax co mpared to old exam. There is new interstitial infiltrate in the left lung. Congestive heart failure i s also possible.
[2022-03-23 23:09] LABS: Basophils % (A) 0 %; Eosinophils % (A) 0 %; HCT 37.3 % (39.0-53.0); HGB 12.2 gm/dL (13.0-17.5); Hypochromasia Slight; Lymphocytes # (A) 0.3 k/uL (1.0-4.8); Lymphocytes % (A) 3 %; MCH 29.2 pg (25.0-35.0); MCHC 32.7 g/dL (31.0-37.0); MCV 89.2 fL (80.0-100.0); Mean Platelet Volume 7.7; Monocytes # (A) 0.3 k/uL (0-1.0); Monocytes % (A) 3 %; Neutrophils # (A) 8.9 k/uL (1.3-7.7); Neutrophils % (A) 92 %; Platelet Count 210 k/uL (150-450); RBC 4.18 m/uL (4.30-5.90); RDW 15.2 % (11.5-15.5); WBC 9.6 k/uL (3.8-10.6)
[2022-03-23] MEDS ORDERED: AZITHROMYCIN 500 MG in SODIUM CHLORIDE 0.9% 250 ML IVPB STA (23:18)
[2022-03-23 23:32] LABS: ALT 20 U/L (4-49); AST 24 U/L (17-59); African American GFR (CKD) >90 (>60 ml/min/1.73 sqM); Albumin 4.1 g/dL (3.5-5.0); Alkaline Phosphatase 131 U/L (38-126); Anion Gap 11 mmol/L; Blood Urea Nitrogen 21 mg/dL (9-20); Calcium 8.9 mg/dL (8.4-10.2); Carbon Dioxide 25 mmol/L (22-30); Chloride 104 mmol/L (98-107); Glucose 137 mg/dL (74-99); Magnesium 1.9 mg/dL (1.6-2.3); Non-African American GFR(CKD) >90 (>60 ml/min/1.73 sqM); Potassium 4.5 mmol/L (3.5-5.1); Sodium 140 mmol/L (137-145); Total Bilirubin 0.4 mg/dL (0.2-1.3); Total Protein 6.5 g/dL (6.3-8.2)
[2022-03-23 23:39] LABS: INR 0.9 (<1.2); Partial Thromboplastin Time 22.3 sec (22.0-30.0); Prothrombin Time 9.7 sec (9.0-12.0)
[2022-03-23] MEDS ORDERED: NALOXONE 0.4 MG/ML 1 ML VIAL IV PRN (23:46)
[2022-03-23] MEDS ORDERED: ONDANSETRON 4 MG/2 ML VIAL IVP PRN (23:46)
--- NOTE | 2022-03-24 02:58 | P.PN ---
Progress Note - Text Progress Note Date: 03/24/22 received a call from ED about this new admission I advised it should be admitted under Dr Sr. as patient PCP is Dr Mia Kaur acknowledged and will make the switch
[2022-03-24] MEDS: MORPHINE SULFATE 4 MG/ML SYRINGE IV PRN ×2 (03:00→08:09)
[2022-03-24] MEDS: ALBUTEROL NEBULIZED 2.5 MG/3 ML INHALATION SCH ×2 (07:41→11:13)
[2022-03-24] MEDS ORDERED: ALBUTEROL NEBULIZED 1.25 MG/3 ML INHALATION SCH (08:00)
[2022-03-24 08:19] LABS: Basophils % (A) 0 %; Eosinophils % (A) 0 %; HCT 36.4 % (39.0-53.0); HGB 11.9 gm/dL (13.0-17.5); Hypochromasia Moderate; Lymphocytes # (A) 0.6 k/uL (1.0-4.8); Lymphocytes % (A) 9 %; MCH 29.8 pg (25.0-35.0); MCHC 32.7 g/dL (31.0-37.0); MCV 91.1 fL (80.0-100.0); Mean Platelet Volume 7.4; Monocytes # (A) 0.5 k/uL (0-1.0); Monocytes % (A) 8 %; Neutrophils # (A) 5.9 k/uL (1.3-7.7); Neutrophils % (A) 82 %; Platelet Count 213 k/uL (150-450); RBC 3.99 m/uL (4.30-5.90); RDW 14.7 % (11.5-15.5); WBC 7.2 k/uL (3.8-10.6)
[2022-03-24 08:32] LABS: ALT 19 U/L (4-49); AST 22 U/L (17-59); African American GFR (CKD) >90 (>60 ml/min/1.73 sqM); Alkaline Phosphatase 135 U/L (38-126); Anion Gap 11 mmol/L; Blood Urea Nitrogen 18 mg/dL (9-20); Calcium 8.7 mg/dL (8.4-10.2); Carbon Dioxide 28 mmol/L (22-30); Chloride 101 mmol/L (98-107); Glucose 116 mg/dL (74-99); Magnesium 2.1 mg/dL (1.6-2.3); Non-African American GFR(CKD) >90 (>60 ml/min/1.73 sqM); Phosphorus 3.7 mg/dL (2.5-4.5); Potassium 4.2 mmol/L (3.5-5.1); Sodium 140 mmol/L (137-145); Total Bilirubin 0.4 mg/dL (0.2-1.3); Total Protein 6.2 g/dL (6.3-8.2)
--- NOTE | 2022-03-24 09:04 | XR ---
EXAMINATION TYPE: XR chest 1V DATE OF EXAM: 03/24/2022 COMPARISON: 03/23/2022 INDICATION: Effusion, pneumonia TECHNIQUE: Single frontal view of the chest is obtained. FINDINGS: The heart size is enlarged. The pulmonary vasculature is normal. Right lower lobe infiltrate is present. This is improving. Underlying effusion is not excluded. IMPRESSION: 1. Improving right lower lobe infiltrate can be compatible with pneumonia. Continued follow-up to [facility] is recommended
[2022-03-24] MEDS ORDERED: guaiFENesin 600 MG TABLET.ER PO SCH (11:00)
[2022-03-24] MEDS ORDERED: SYMBICORT 160-4.5 MCG INHALER INHALATION ONE (11:09)
[2022-03-24] MEDS ORDERED: ONDANSETRON 4 MG TAB PO PRN (12:00)
[2022-03-24] MEDS ORDERED: MORPHINE SULFATE ER 15 MG TABLET PO PRN (12:00)
[2022-03-24] MEDS ORDERED: LORazepam 0.5 MG TAB PO PRN (12:06)
[2022-03-24] MEDS ORDERED: LACTULOSE 20 GM/30 ML CUP PO PRN (12:06)
[2022-03-24] MEDS ORDERED: TEMAZEPAM 15 MG CAP PO PRN (12:06)
[2022-03-24] MEDS ORDERED: ACETAMINOPHEN TAB 325 MG TAB PO PRN (12:06)
[2022-03-24] MEDS ORDERED: CALCIUM CARBONATE 500 MG CHEWABLE PO PRN (12:06)
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
[2022-03-24] MEDS ORDERED: ALBUTEROL NEBULIZED 2.5 MG/3 ML INHALATION PRN (12:22)
[2022-03-24] MEDS ORDERED: MORPHINE SULFATE ER 15 MG TABLET PO ONE (12:30)
[2022-03-24] MEDS: ENOXAPARIN 40 MG/0.4 ML SYRINGE SQ SCH (12:34)
[2022-03-24] MEDS: carvediloL 12.5 MG TAB PO SCH ×2 (12:34→21:24)
--- NOTE | 2022-03-24 13:22 | P.CNPUL ---
History of Present Illness Consult date: 03/24/22 Requesting physician: Flor Damian Reason for consult: dyspnea, abnormal CXR/CT Chief complaint: Shortness of breath, cough, congestion History of present illness: This is a pleasant 71-year-old male patient with a known history of squamous cell lung cancer with previous chemo/radiation, poor tolerance to immunotherapy, chronic obstructive pulmonary disease, congestive heart failure, hypertension, chronic back pain, peripheral vascular occlusive disease, coronary disease with previous stent placement, former smoker. He presented here to the emergency room yesterday after a 2-3 day history of increasing shortness of breath cough and congestion. Chest x-ray shows a right lower lobe infiltrate compatible with pneumonia. Underlying effusion not excluded. White count 10.2. Hemoglobin 11.9. Sodium 140. Potassium 4.2. BUN 18. Creatinine 0.73. Troponins -3. ProBNP 3350. He's been initiated on ceftriaxone and azithromycin. He is seen today in consultation on the regular medical floor. He is currently sitting up at the bedside. Awake and alert in no acute distress. Continues with a loose nonproductive cough. He is maintaining O2 saturations in the mid 90s on room air. Afebrile. Hemodynamically stable. Review of Systems REVIEW OF SYSTEMS: CONSTITUTIONAL: Denies any recent significant weight loss or weight gain. EYES: Denies change in vision. EARS, NOSE, MOUTH, THROAT: Denies headaches, denies sore throat. CARDIOVASCULAR: Denies chest pain, palpitations or syncopal episodes. RESPIRATORY: Positive for shortness of breath, cough, congestion no hemoptysis. GASTROINTESTINAL: Denies change in appetite, denies abdominal pain GENITOURINARY: Denies hematuria, denies infections. MUSKULOSKELETAL: Denies pain, denies swelling. INTEGUMENTARY: Denies rash, denies eczema. NEUROLOGICAL: Denies recent memory loss, no recent seizure activity. PSYCHIATRIC: Denies anxiety, denies depression. HEMATOLOGIC/LYMPHATIC: Denies anemia, denies enlarged lymph nodes. Past Medical History Past Medical History: Cancer, Chest Pain / Angina, Heart Failure, COPD, Hypertension, Myocardial Infarction ([place]), Skin Disorder Additional Past Medical History / Comment(s): chronic back pain, [place] spring 2015; pt has history of PVD with LLE cellulitis, states he had vascular surgery to improve healing, lung CA, had chemo and radiation immunotherapy (last had immunotherapy about 3 months ago.) Last Myocardial Infarction Date:: 2015 History of Any Multi-Drug Resistant Organisms: MRSA Date of last positivie culture/infection: 06/25/17 MDRO Source:: LEFT LEG Past Surgical History: Heart Catheterization With Stent, Hernia Repair, Orthopedic Surgery Additional Past Surgical History / Comment(s): left femur ORIF 40 years ago and luisa shoulder surgery- rotator repair, left leg bypass; two stents placed in November 2019, hernia repair 2019 Past Anesthesia/Blood Transfusion Reactions: No Reported Reaction Date of Last Stent Placement:: November 2019 Past Psychological History: Anxiety Smoking Status: Former smoker Past Alcohol Use History: Heavy Additional Past Alcohol Use History / Comment(s): Drinks about three alcoholic drinks a day, used to be a heavy drinker Past Drug Use History: None Reported - Past Family History Father Additional Family Medical History / Comment(s): lung cancer Brother(s) Additional Family Medical History / Comment(s): lung cancer Medications and Allergies Home Medications Medication Instructions Recorded Confirmed Type Aspirin [Adult Low Dose Aspirin EC] 81 mg PO DAILY 11/11/17 07/11/21 History Albuterol Sulfate [Proair Hfa] 1 puff INHALATION RT-Q4H PRN 12/05/20 07/11/21 History Ondansetron [Zofran] 4 mg PO TID PRN 12/05/20 07/11/21 History carvediloL [Coreg*] 12.5 mg PO BID 12/05/20 07/11/21 History oxyCODONE-APAP 10-325MG [Percocet 1 tab PO TID PRN 12/05/20 07/11/21 History 10-325 mg] Formoterol Fumarate [Perforomist] 20 mcg INHALATION RT-BID 12/21/20 07/11/21 History Morphine Sulfate ER [Ms Contin] 15 mg PO DAILY PRN 01/12/21 07/11/21 History Multivit-Min/Folic/Vit K/Lycop 1 tab PO DAILY 01/12/21 07/11/21 History [Men's Multivitamin Tablet] Potassium Chloride [Klor-Con 20] 20 meq PO DAILY 01/12/21 07/11/21 History Furosemide [Lasix] 20 mg PO BID 30 Days #60 tab 01/20/21 07/11/21 Rx Ipratropium-Albuterol Nebulize 3 ml INHALATION RT-QID 07/11/21 07/11/21 History [Duoneb 0.5 mg-3 mg/3 ml Soln] Doxycycline [Vibramycin] 100 mg PO BID #10 capsule 07/12/21 Rx guaiFENesin [Mucinex] 600 mg PO Q12HR #14 tablet 07/12/21 Rx predniSONE 0 mg PO DIRECTED #10 tab 07/12/21 Rx Allergies Allergy/AdvReac Type Severity Reaction Status Date / Time No Known Allergies Allergy Verified 07/11/21 14:02 Physical Exam Vitals: Vital Signs Temp Pulse Pulse Resp BP BP Pulse Ox 03/24/22 11:23 84 03/24/22 11:15 88 03/24/22 08:00 72 17 03/24/22 07:54 90 03/24/22 07:45 98.4 F 86 72 17 163/86 95 03/24/22 02:00 97.5 F L 89 17 169/89 95 03/24/22 00:15 16 94 L 03/23/22 22:50 84 03/23/22 22:43 84 03/23/22 22:13 98.1 F 84 18 167/85 95 Intake and Output 03/23/22 03/24/22 03/24/22 22:59 06:59 14:59 Other: # Voids 2 Weight 102.965 kg 102.965 kg GENERAL EXAM: Alert, pleasant, obese 71-year-old male patient, on room air, comfortable in no apparent distress. HEAD: Normocephalic. EYES: Normal reaction of pupils, equal size. NOSE: Clear with pink turbinates. THROAT: No erythema or exudates. NECK: No masses, no JVD. CHEST: No chest wall deformity. LUNGS: Equal air entry with few scattered rhonchi, crackles in the right base. CVS: S1 and S2 normal with no audible murmur, regular rhythm. ABDOMEN: No hepatosplenomegaly, normal bowel sounds, no guarding or rigidity. SPINE: No scoliosis or deformity SKIN: No rashes CENTRAL NERVOUS SYSTEM: No focal deficits, tone is normal in all 4 extremities. EXTREMITIES: There is no peripheral edema. No clubbing, no cyanosis. Peripheral pulses are intact. Results - Laboratory Findings CBC and BMP: 03/24/22 07:31 03/24/22 07:31 PT/INR, D-dimer PT 9.7 sec (9.0-12.0) 03/23/22 22:42 INR 0.9 (<1.2) 03/23/22 22:42 Abnormal lab findings: Abnormal Labs 03/23/22 03/23/22 03/24/22 22:42 22:42 07:31 RBC 4.18 L 3.99 L Hgb 12.2 L 11.9 L Hct 37.3 L 36.4 L Neutrophils # 8.9 H Lymphocytes # 0.3 L 0.6 L BUN 21 H Glucose 137 H Alkaline Phosphatase 131 H Total Protein 03/24/22 07:31 RBC Hgb Hct Neutrophils # Lymphocytes # BUN Glucose 116 H Alkaline Phosphatase 135 H Total Protein 6.2 L - Diagnostic Findings Chest x-ray: image reviewed Assessment and Plan Assessment: Acute exacerbation of chronic obstructive pulmonary disease, complicated by possible right lower lung. Pro-calcitonin pending. Currently on ceftriaxone and azithromycin History of squamous cell lung cancer with previous chemo/radiation, intolerant to immunotherapy Coronary artery disease with previous stent placement, mildly impaired left ventricular systolic function with ejection fraction 45-50% History of congestive heart failure Chronic back pain Hypertension Peripheral vascular occlusive disease Prior smoker Plan: The patient was seen and evaluated Chest x-ray, labs and medications reviewed Continue bronchodilators, prednisone Continue antibiotics Procalcitonin pending Continue oral diuretics We will continue to follow and make further recommendations based on his clinical status I have personally seen and examined the patient, performed the documentation and the assessment and plan as written. Number of minutes spent on the visit: 20.
[2022-03-24] MEDS: IPRATROPIUM-ALBUTEROL 3 ML NEB INHALATION SCH ×3 (15:11→21:01)
--- NOTE | 2022-03-24 15:37 | US ---
EXAMINATION TYPE: US chest DATE OF EXAM: 03/24/2022 COMPARISON: CLINICAL HISTORY: Right chest wall marking for thoracentesis. TECHNIQUE: Targeted ultrasound of the posterior lower bilateral hemithoraces EXAM MEASUREMENTS: Right Pleural Effusion pocket size: 10.9 cm Right skin surface to fluid distance: 3.0 cm Right side marked for possible thoracentesis outside the dept. Pulmonologists are able to review the images in the patient?s EMR. IMPRESSIONS: There is demonstration of a moderate right pleural effusion.
--- NOTE | 2022-03-24 15:47 | P.CONS ---
History of Present Illness - Reason for Consult Consult date: 03/24/[address] Ignacio's - History of Present Illness derek Cancer Follow Up Visit HPI : Mr Matias is a pleasant white male, initially seen in consult at [facility] on 04/20/20. The patient had presented with cough productive of whitish to yellowish sputum about 2 weeks prior admission. He was hospitalized at [facility] from 04/11-04/13/20 and treated with antibiotics. He had initial improvement but then developed rapid recurrence of symptoms after discharge. He was on oral antibiotics as an outpatient without much improvement. He therefore came back to the hospital with CTA of the chest pe rformed to rule out PE. This was negative for the same but showed bilateral pneumonia more prominent in the right lower lobe, as well as evidence of central right lung mass and massive mediastinal and hilar adenopathy. He was therefore transferred to [facility]. The patient had a bronchoscopy on 04/19/20 that showed a large tumor involving the sera, cauliflower in shape. Right side was more involved than the left. Left sided bronchi were able to be visualized but right middle and lower lobe bronchi were occluded by the sera tumor. 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 The patient improved with steroids, and antibiotics and was able to be discharged. He had an outpatient PET scan on 04/30/20 that showed uptake in retrograde vertebral, and pretracheal adenopathy, right hilar nodes, and subcarinal nodes. Groundglass opacities present through much of the right upper lobe which showed associated uptake with patchy areas. There is some nodularity in the right middle lobe and only mild uptake in one of the peripheral nodules. There is no evidence of any distant metastatic disease. Postoperative changes of the left hip a lytic lucency in the proximal right humerus were noted, without any associated uptake. He was seen for his first office visit on 05/13/20. He was started on radiation at [place] on 05/12/20. He started concurrent chemoRT with weekly Carbo/Taxol on 05/17/20. He is s/p 7 cycles completing those on 06/28/20, and RT on 06/30/[address] scans in 08/14 showed partial response. the patient had umbilical hernia surgery on 10/26/20. He called the office subsequently complaining of increasing shortness of breath. Chest x-ray showed increasing right middle and lower lobe opacification. The patient was given a course of antibiotics. CT showed increased RLL opacity, with air bronchograms. A pleural effusion was seen. Immunotherapy was held and he had a thoracentesis on 12/09/20. Cytology was negative He was rechallenged with immunotherapy on 12/19/20, but was admitted to [facility] on 12/21/20 wth recurrent SOB. He had repeat thoracentesis for recurrent pleural effusion ( 1.4 L) with cytology negative. He imoproved with steroids, updrafts and antibiotics, and was discharged on the same. He completed antibiotic after about a week. At his visit on 01/12/21 the patient reported her current shortness of breath, and was found to be hypoxic in the office. He was very reluctant to be admitted but was ultimately persuaded to go to the hospital where he was admitted for acute respiratory failure. CTA was negative for PE, but showed recurrent rt pleural effusion, and b/l lung opacities. He had 1.8 L drained from the right, and also a bronchosocpy, negative for malignancy. He required diuresis for acure fluid overload, with ECHO showing increased rt sided pressures, and EF of 45-50%. He improved with the same and steroids. He was discharged on steroids, Lasix, and O2 he had repeat thoracentesis of 1.2 L on 02/21/21 with pathology negative for malignancy. CT scan around the same time showed some patchy inflammatory-type opacities in the right lung but no evidence of recurrent malignancy. the patient had repeat admission in early 05/16 for COPD exacerbation/pneumonia. He then contacted [facility] in late 05/16 but was able to be treated outpatient with monoclonal antibody infusion. he was admitted in late 11/15 with left lower extremity pain and swelling. He had developed a nonhealing wound, that is found to be infected with MRSA. According to the patient hospitalization was completed by fluid overload. He did improve and was able to be discharged, with outpatient IV antibiotics for a total of 2 weeks. The wound has slowly improved. He is scheduled for a vascular procedure in early 02/15 in that extremity He denied any f/c/n/v. He is using oxygen regularly at night, and intermittently during the day. He is on steroids with slow taper. He has intermittent LE swelling. Swallowing is normal. His appetite is quite satisfactory according to him. His BP has been low and he stopped his BP medications. energy level is iimproved. His pain control is satisfactory. His ROS is otherwise as per HPI and negative out of 10 He was last seen in office in December Chronic DVT of the left lower extremity on xarelto Patient has been told that currently is in remission. Patient presents with 3-5 days of progressive shortness of breath. Chest Xray reveals right lower lobe infiltrate and he has been started on treatment for pneumonia and pulmonary is following. Review of Systems All systems: negative Constitutional: Reports as per HPI Past Medical History Past Medical History: Cancer, Chest Pain / Angina, Heart Failure, COPD, Hypertension, Myocardial Infarction ([place]), Skin Disorder Additional Past Medical History / Comment(s): chronic back pain, [place] spring 2015; pt has history of PVD with LLE cellulitis, states he had vascular surgery to improve healing, lung CA, had chemo and radiation immunotherapy (last had immunotherapy about 3 months ago.) Last Myocardial Infarction Date:: 2015 History of Any Multi-Drug Resistant Organisms: MRSA Year Discovered:: 06/25/17 MDRO Source:: LEFT LEG Past Surgical History: Heart Catheterization With Stent, Hernia Repair, Orthopedic Surgery Additional Past Surgical History / Comment(s): left femur ORIF 40 years ago and luisa shoulder surgery- rotator repair, left leg bypass; two stents placed in November 2019, hernia repair 2019 Past Anesthesia/Blood Transfusion Reactions: No Reported Reaction Date of Last Stent Placement:: November 2019 Past Psychological History: Anxiety Smoking Status: Former smoker Past Alcohol Use History: Heavy Additional Past Alcohol Use History / Comment(s): Drinks about three alcoholic drinks a day, used to be a heavy drinker Past Drug Use History: None Reported - Past Family History Father Additional Family Medical History / Comment(s): lung cancer Brother(s) Additional Family Medical History / Comment(s): lung cancer Medications and Allergies Home Medications Medication Instructions Recorded Confirmed Type Aspirin [Adult Low Dose Aspirin EC] 81 mg PO DAILY 11/11/17 03/24/22 History Albuterol Sulfate [Proair Hfa] 2 puff INHALATION RT-Q4H PRN 12/05/20 03/24/22 History Ondansetron [Zofran] 4 mg PO TID PRN 12/05/20 03/24/22 History carvediloL [Coreg*] 12.5 mg PO BID 12/05/20 03/24/22 History oxyCODONE-APAP 10-325MG [Percocet 1 tab PO TID PRN 12/05/20 03/24/22 History 10-325 mg] Formoterol Fumarate [Perforomist] 20 mcg INHALATION RT-BID 12/21/20 03/24/22 History Morphine Sulfate ER [Ms Contin] 15 mg PO DAILY PRN 01/12/21 03/24/22 History Multivit-Min/Folic/Vit K/Lycop 1 tab PO DAILY 01/12/21 03/24/22 History [Men's Multivitamin Tablet] Potassium Chloride [Klor-Con 20] 20 meq PO DAILY 01/12/21 03/24/22 History Furosemide [Lasix] 20 mg PO BID 30 Days #60 tab 01/20/21 03/24/22 Rx Ipratropium-Albuterol Nebulize 3 ml INHALATION RT-QID 07/11/21 03/24/22 History [Duoneb 0.5 mg-3 mg/3 ml Soln] ALPRAZolam [Xanax] 0.25 mg PO Q12H PRN 03/24/22 03/24/22 History Atorvastatin [Lipitor] 20 mg PO HS 03/24/22 03/24/22 History Collagenase [Santyl Ointment] 1 applic TOPICAL DAILY PRN 03/24/22 03/24/22 History Losartan [Cozaar] 25 mg PO DAILY 03/24/22 03/24/22 History Naloxone HCl [Narcan] 4 mg NASAL DAILY PRN 03/24/22 03/24/22 History predniSONE See Taper PO DIRECTED 03/24/22 03/24/22 History Allergies Allergy/AdvReac Type Severity Reaction Status Date / Time No Known Allergies Allergy Verified 03/24/22 13:38 Physical Exam Vitals: Vital Signs Temp Pulse Pulse Resp BP BP Pulse Ox 03/24/22 11:23 84 03/24/22 11:15 88 03/24/22 08:00 72 17 03/24/22 07:54 90 03/24/22 07:45 98.4 F 86 72 17 163/86 95 03/24/22 02:00 97.5 F L 89 17 169/89 95 03/24/22 00:15 16 94 L 03/23/22 22:50 84 03/23/22 22:43 84 03/23/22 22:13 98.1 F 84 18 167/85 95 Intake and Output 03/24/22 03/24/22 03/24/22 06:59 14:59 22:59 Other: # Voids 2 Weight 102.965 kg - Constitutional General appearance: cooperative, mild distress - EENT Eyes: EOMI ENT: NA/AT - Neck Neck: normal ROM - Respiratory Respiratory: bilateral: diminished - Cardiovascular Rhythm: regularly irregular - Gastrointestinal General gastrointestinal: soft - Integumentary Integumentary: pale - Musculoskeletal Musculoskeletal: generalized weakness - Psychiatric Psychiatric: A&O x's 3 Results CBC & Chem 7: 03/24/22 07:31 03/24/22 07:31 Labs: Abnormal Lab Results - Last 24 Hours (Table) 03/23/22 03/23/22 03/24/22 Range/Units 22:42 22:42 07:31 RBC 4.18 L 3.99 L (4.30-5.90) m/uL Hgb 12.2 L 11.9 L (13.0-17.5) gm/dL Hct 37.3 L 36.4 L (39.0-53.0) % Neutrophils # 8.9 H (1.3-7.7) k/uL Lymphocytes # 0.3 L 0.6 L (1.0-4.8) k/uL BUN 21 H (9-20) mg/dL Glucose 137 H (74-99) mg/dL Alkaline Phosphatase 131 H (38-126) U/L Total Protein (6.3-8.2) g/dL 03/24/22 Range/Units 07:31 RBC (4.30-5.90) m/uL Hgb (13.0-17.5) gm/dL Hct (39.0-53.0) % Neutrophils # (1.3-7.7) k/uL Lymphocytes # (1.0-4.8) k/uL BUN (9-20) mg/dL Glucose 116 H (74-99) mg/dL Alkaline Phosphatase 135 H (38-126) U/L Total Protein 6.2 L (6.3-8.2) g/dL Assessment and Plan (1) History of lung cancer Narrative/Plan: Last seen in December without evidence off definitive recurrence on restaging CT chest/abdomen, pelvis. Repeat CT imaging if concern for recurrence or treatment for pneumonia not improving symptoms Differential: Radiation pneumonitis Current Visit: Yes Status: Acute Code(s): Z85.118 - PERSONAL HISTORY OF MALIGNANT NEOPLASM OF BRONCHUS AND LUNG SNOMED Code(s): 489981184 (2) Pneumonia Current Visit: No Status: Acute Code(s): J18.9 - PNEUMONIA, UNSPECIFIED ORGANISM SNOMED Code(s): 268167487
[2022-03-24] MEDS ORDERED: FUROSEMIDE 10 MG/ML 2 ML VIAL IV ONE (16:08)
[2022-03-24] MEDS: oxyCODONE-APAP 10-325MG 1 EACH TAB PO PRN ×2 (16:52→21:24)
[2022-03-24] MEDS ORDERED: SYMBICORT 160-4.5 MCG INHALER INHALATION SCH ×2 (20:00)
[2022-03-24] MEDS: FORMOTEROL FUMARATE 20 MCG/2 ML NEBU INHALATION SCH (21:01)
[2022-03-24] MEDS: guaiFENesin 600 MG TABLET.ER PO SCH (21:25)
[2022-03-24] MEDS: FUROSEMIDE 20 MG TAB PO SCH (21:25)
[2022-03-24] MEDS: AZITHROMYCIN 500 MG in SODIUM CHLORIDE 0.9% 250 ML IVPB SCH (22:43)
[2022-03-25] MEDS: oxyCODONE-APAP 10-325MG 1 EACH TAB PO PRN ×3 (04:44→20:33)
[2022-03-25] MEDS: ENOXAPARIN 40 MG/0.4 ML SYRINGE SQ SCH (07:27)
[2022-03-25] MEDS: carvediloL 12.5 MG TAB PO SCH ×2 (07:28→20:33)
[2022-03-25] MEDS: ASPIRIN 81 MG PO SCH (07:28)
[2022-03-25] MEDS: guaiFENesin 600 MG TABLET.ER PO SCH ×2 (07:28→20:33)
[2022-03-25] MEDS: FUROSEMIDE 20 MG TAB PO SCH ×2 (07:28→20:33)
[2022-03-25] MEDS: MULTIVITAMINS, THERA 1 EACH TAB PO SCH (07:28)
[2022-03-25] MEDS: FORMOTEROL FUMARATE 20 MCG/2 ML NEBU INHALATION SCH ×4 (08:54→20:40)
[2022-03-25] MEDS: IPRATROPIUM-ALBUTEROL 3 ML NEB INHALATION SCH ×4 (08:54→20:40)
[2022-03-25] MEDS: BUDESONIDE 1 MG/2 ML NEBU INHALATION SCH ×2 (08:54→20:39)
[2022-03-25] MEDS ORDERED: predniSONE 10 MG TAB PO SCH (09:00)
--- NOTE | 2022-03-25 11:10 | P.PN ---
Subjective Progress Note Date: 03/25/22 Principal diagnosis: Shortness of breath. This is a pleasant 71-year-old male patient with a known history of squamous cell lung cancer with previous chemo/radiation, poor tolerance to immunotherapy, chronic obstructive pulmonary disease, congestive heart failure, hypertension, chronic back pain, peripheral vascular occlusive disease, coronary disease with previous stent placement, former smoker. He presented here to the emergency room yesterday after a 2-3 day history of increasing shortness of breath cough and congestion. Chest x-ray shows a right lower lobe infiltrate compatible with pneumonia. Underlying effusion not excluded. White count 10.2. Hemoglobin 11.9. Sodium 140. Potassium 4.2. BUN 18. Creatinine 0.73. Troponins -3. ProBNP 3350. He's been initiated on ceftriaxone and azithromycin. He is seen today in consultation on the regular medical floor. He is currently sitting up at the bedside. Awake and alert in no acute distress. Continues with a loose nonproductive cough. He is maintaining O2 saturations in the mid 90s on room air. Afebrile. Hemodynamically stable. Progress note dated 03/25/2022. 71-year-old male with a history of squamous cell lung cancer, with previous chemo/radiation, and poor tolerance to immunotherapy. The patient also has a history of COPD, congestive heart failure, hypertension, chronic back pain, peripheral vascular disease, CAD with previous stent, and previous tobacco use. Currently, the patient is on no supplemental oxygen. He's not receiving any IV fluids. His primary care physician is Dr. Bellamy. He is currently on albuterol sulfate and ipratropium bromide, formoterol, Solu-Medrol, and budesonide. The patient is short of breath on exertion, and also complains of a nonproductive cough. He is not manifesting any signs or symptoms of respiratory distress or difficulty. Objective - Vital Signs Vital signs: Vital Signs Temp 98.3 F 03/25/22 07:31 Pulse 88 03/25/22 09:16 Resp 17 03/25/22 07:31 BP 177/93 03/25/22 07:31 Pulse Ox 95 03/25/22 07:31 FiO2 Intake & Output 03/24/22 03/25/22 03/25/22 18:59 06:59 18:59 Output Total 500 Balance -500 Output: Urine 500 Other: # Voids 3 - Exam No acute distress, oriented 3. On room air. No audible wheezing, use of accessory muscles, or conversational dyspnea. HEENT examination is grossly unremarkable. Neck supple. Full range of motion. No adenopathy thyromegaly or neck vein distention. Cardiovascular examination reveals regular rhythm rate. S1-S2 normal. No S3 or S4. No discernible murmur noted. Heart rate 88 bpm. Lungs reveal scattered rhonchi and crackles particularly at the right lung base. No wheezes. Saturation is 95% on room air. Abdomen soft bowel sounds are heard. No masses or tenderness. Extremities are intact. No cyanosis clubbing or edema. Skin is without rash or lesion. Neurologic examination is brief but nonfocal. - Labs CBC & Chem 7: 03/24/22 07:31 03/24/22 07:31 Assessment and Plan Assessment: Acute exacerbation of chronic obstructive pulmonary disease, complicated by possible right lower lobe pneumonia. Pro-calcitonin level was only 0.04. Currently on ceftriaxone and azithromycin. History of squamous cell lung cancer with previous chemo/radiation, intolerant to immunotherapy. Coronary artery disease with previous stent placement, with mildly impaired left ventricular systolic function with ejection fraction 45-50%. History of congestive heart failure. Chronic back pain. Hypertension. Peripheral vascular occlusive disease. Prior smoker. Plan: Plan dated 03/25/2022. The patient appears in no distress. The patient denies being short of breath, or having any significant cough or phlegm production. There is no fever or chills. The patient is on albuterol sulfate, and ipratropium bromide. We've also added formoterol, and budesonide, as well as Solu-Medrol. The patient's pro-calcitonin level is low, and, antibiotics could be de-escalated. We will continue to follow make recommendations along the way. Prognosis is guarded. Time with Patient: Less than 30
[2022-03-25] MEDS: methylPREDNISolone SOD SUCCI 125 MG/2 ML VIAL IV SCH ×2 (11:39→17:50)
[2022-03-25] MEDS ORDERED: LIDOCAINE 1% INJ 10MG/ML (30 ML VIAL-PF) SQ ONE (11:49)
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
--- NOTE | 2022-03-25 13:38 | XR ---
EXAMINATION TYPE: XR chest 1V portable DATE OF EXAM: 03/25/2022 COMPARISON: 03/24/2022 INDICATION: Post thoracentesis TECHNIQUE: Single frontal view of the chest is obtained. FINDINGS: The heart size is mildly prominent. The pulmonary vasculature is prominent. Small right pleural effusion is present. Mild infiltrates on the right may be related atelectasis. IMPRESSION: 1. No pneumothorax is evident post thoracentesis. Small residual right pleural fluid and infiltrate a t the right base is present.
--- NOTE | 2022-03-25 16:47 | P.PN ---
Subjective Progress Note Date: 03/25/22 Principal diagnosis: COvid pancytopenia Platelets improved. Objective - Vital Signs Vital signs: Vital Signs Temp 98.3 F 03/25/22 07:31 Pulse 84 03/25/22 12:48 Resp 17 03/25/22 07:31 BP 177/93 03/25/22 07:31 Pulse Ox 95 03/25/22 07:31 FiO2 Intake & Output 03/24/22 03/25/22 03/25/22 18:59 06:59 18:59 Output Total 500 Balance -500 Output: Urine 500 Other: # Voids 3 - Exam - Constitutional General appearance: cooperative, mild distress - EENT Eyes: EOMI ENT: NA/AT - Neck Neck: normal ROM - Respiratory Respiratory: bilateral: diminished - Cardiovascular Rhythm: regularly irregular - Gastrointestinal General gastrointestinal: soft - Integumentary Integumentary: pale - Musculoskeletal Musculoskeletal: generalized weakness - Psychiatric Psychiatric: A&O x's 3 - Labs CBC & Chem 7: 03/24/22 07:31 03/24/22 07:31 Assessment and Plan (1) History of lung cancer Narrative/Plan: Last seen in December without evidence off definitive recurrence on restaging CT chest/abdomen, pelvis. Repeat CT imaging if concern for recurrence or treatment for pneumonia not improving symptoms Differential: Radiation pneumonitis Current Visit: Yes Status: Acute Code(s): Z85.118 - PERSONAL HISTORY OF MALIGNANT NEOPLASM OF BRONCHUS AND LUNG SNOMED Code(s): 413535432 (2) Pneumonia Current Visit: No Status: Acute Code(s): J18.9 - PNEUMONIA, UNSPECIFIED ORGANISM SNOMED Code(s): 568254617 Plan: we will follow but at this time most acute issues managed per pulmonary and ID
[2022-03-25 18:08] LABS: Appearance,BF Hazy
[2022-03-25] MEDS: MORPHINE SULFATE 4 MG/ML SYRINGE IV PRN (18:11)
[2022-03-25 18:30] LABS: Glucose, BF Source Pleural Fluid; Glucose, Body Fluid 108 mg/dL; LDH, Body Fluid Source Pleural Fluid; T. Protein, Body Fluid Source Pleural Fluid; Total Protein, Body Fluid 3100 mg/dL
[2022-03-25] MEDS: AZITHROMYCIN 500 MG in SODIUM CHLORIDE 0.9% 250 ML IVPB SCH (20:33)
[2022-03-25 21:24] VITALS: RESP 17
[2022-03-26] MEDS: methylPREDNISolone SOD SUCCI 125 MG/2 ML VIAL IV SCH ×3 (00:34→12:43)
[2022-03-26] MEDS: oxyCODONE-APAP 10-325MG 1 EACH TAB PO PRN ×2 (05:57→12:43)
[2022-03-26] MEDS: FORMOTEROL FUMARATE 20 MCG/2 ML NEBU INHALATION SCH ×2 (07:24→20:17)
[2022-03-26] MEDS: BUDESONIDE 1 MG/2 ML NEBU INHALATION SCH ×2 (07:24→20:17)
[2022-03-26] MEDS: IPRATROPIUM-ALBUTEROL 3 ML NEB INHALATION SCH ×4 (07:24→20:17)
--- NOTE | 2022-03-26 07:58 | OP ---
OPERATIVE REPORT PULMONARY/CRITICAL CARE PROCEDURE: PROCEDURE: Right-sided thoracentesis. PREOPERATIVE DIAGNOSIS: Right pleural effusion. POSTOPERATIVE DIAGNOSIS: Right pleural effusion. DESCRIPTION OF PROCEDURE: A time-out was completed verifying correct patient, procedure, site, positioning , and implant (s) or special equipment if applicable. Ultrasound guidance was used, posterior chest was marked by ultrasound and appropriate fluid pocket was identified and marked. Patient was positioned, prepped and draped in usual sterile fashion. Lidocaine was used to anesthetize the area. A Thoracentesis catheter was introduced into the pleural space and fluid was removed. Blood loss was none. Total Fluid Removed 900 mL. Color of Fluid bloody. Fluid will be sent for analysis including chemistry, cytology, and microbiology. There were no immediate complications after the procedure was done. A chest x-ray was ordered to rule out pneumothorax. MMODL / IJN: [id number] /
[2022-03-26] MEDS: ENOXAPARIN 40 MG/0.4 ML SYRINGE SQ SCH (09:25)
[2022-03-26] MEDS: carvediloL 12.5 MG TAB PO SCH (09:26)
[2022-03-26] MEDS: guaiFENesin 600 MG TABLET.ER PO SCH (09:26)
[2022-03-26] MEDS: ASPIRIN 81 MG PO SCH (09:26)
[2022-03-26] MEDS: FUROSEMIDE 20 MG TAB PO SCH (09:26)
[2022-03-26] MEDS: MULTIVITAMINS, THERA 1 EACH TAB PO SCH (09:26)
[2022-03-26] MEDS: MORPHINE SULFATE 4 MG/ML SYRINGE IV PRN (09:26)
[2022-03-26] MEDS ORDERED: LOSARTAN 25 MG TAB PO SCH (10:00)
[2022-03-26 14:40] VITALS: BP 164/90; TEMP 98.6
--- NOTE | 2022-03-26 14:55 | P.PN ---
Subjective Progress Note Date: 03/26/22 This is a pleasant 71-year-old male patient with a known history of squamous cell lung cancer with previous chemo/radiation, poor tolerance to immunotherapy, chronic obstructive pulmonary disease, congestive heart failure, hypertension, chronic back pain, peripheral vascular occlusive disease, coronary disease with previous stent placement, former smoker. He presented here to the emergency room yesterday after a 2-3 day history of increasing shortness of breath cough and congestion. Chest x-ray shows a right lower lobe infiltrate compatible with pneumonia. Underlying effusion not excluded. White count 10.2. Hemoglobin 11.9. Sodium 140. Potassium 4.2. BUN 18. Creatinine 0.73. Troponins -3. ProBNP 3350. He's been initiated on ceftriaxone and azithromycin. He is seen today in consultation on the regular medical floor. He is currently sitting up at the bedside. Awake and alert in no acute distress. Continues with a loose nonproductive cough. He is maintaining O2 saturations in the mid 90s on room air. Afebrile. Hemodynamically stable. Progress note dated 03/25/2022. 71-year-old male with a history of squamous cell lung cancer, with previous chemo/radiation, and poor tolerance to immunotherapy. The patient also has a history of COPD, congestive heart failure, hypertension, chronic back pain, peripheral vascular disease, CAD with previous stent, and previous tobacco use. Currently, the patient is on no supplemental oxygen. He's not receiving any IV fluids. His primary care physician is Dr. Bellamy. He is currently on albuterol sulfate and ipratropium bromide, formoterol, Solu-Medrol, and budesonide. The patient is short of breath on exertion, and also complains of a nonproductive cough. He is not manifesting any signs or symptoms of respiratory distress or difficulty. 03/26/2022, patient is stable. The patient has no specific complaints. The patient underwent thoracentesis of the right lung. Pleural fluid cytology is still pending for now. Otherwise, no other new complaints for now. Objective - Vital Signs Vital signs: Vital Signs Temp 98.6 F 03/26/22 14:00 Pulse 98 03/26/22 14:00 Resp 17 03/26/22 14:00 BP 164/90 03/26/22 14:00 Pulse Ox 94 L 03/26/22 14:00 FiO2 Intake & Output 10/30/22 10/31/22 10/31/22 18:59 06:59 18:59 Output Total 425 800 400 Balance -425 -800 -400 Output: Urine 425 800 400 Other: # Voids 2 - Exam No acute distress, oriented 3. On room air. No audible wheezing, use of accessory muscles, or conversational dyspnea. HEENT examination is grossly unremarkable. Neck supple. Full range of motion. No adenopathy thyromegaly or neck vein distention. Cardiovascular examination reveals regular rhythm rate. S1-S2 normal. No S3 or S4. No discernible murmur noted. Lungs reveal scattered rhonchi and crackles particularly at the right lung base. No wheezes. Saturation is 95% on room air. Abdomen soft bowel sounds are heard. No masses or tenderness. Extremities are intact. No cyanosis clubbing or edema. Skin is without rash or lesion. Neurologic examination is brief but nonfocal. - Labs CBC & Chem 7: 03/24/22 07:31 03/24/22 07:31 Labs: Microbiology - Last 24 Hours (Table) 03/25/22 12:00 Gram Stain - Preliminary Pleural Fluid Body Fluid Culture - Preliminary 03/25/22 12:00 Acid Fast Bacilli Culture - Preliminary Pleural Fluid 03/25/22 12:00 Fungal Culture - Preliminary Pleural Fluid Assessment and Plan Plan: Acute exacerbation of chronic obstructive pulmonary disease, complicated by possible right lower lobe pneumonia. Pro-calcitonin level was only 0.04. Currently on ceftriaxone and azithromycin. History of squamous cell lung cancer with previous chemo/radiation, intolerant to immunotherapy. Coronary artery disease with previous stent placement, with mildly impaired left ventricular systolic function with ejection fraction 45-50%. History of congestive heart failure. Chronic back pain. Hypertension. Peripheral vascular occlusive disease. Prior smoker. Plan May discharge this patient home today Follow-up on outpatient basis Follow-up on the pleural fluid Follow-up with oncology
[2022-03-26 16:35] VITALS: PULSE 90
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
--- NOTE | 2022-03-26 21:12 | P.PN ---
Subjective Progress Note Date: 03/26/22 Principal diagnosis: pneumonia, Hx NSCLC In f/u today pt is feeling good, no fever, she is tolerating oral intake, no SOB with exertion, chest pain Objective - Vital Signs Vital signs: Vital Signs Temp 98.6 F 03/26/22 14:00 Pulse 90 03/26/22 16:34 Resp 17 03/26/22 14:00 BP 164/90 03/26/22 14:00 Pulse Ox 94 L 03/26/22 14:00 FiO2 Intake & Output 03/26/22 03/26/22 03/27/22 06:59 18:59 06:59 Output Total 800 400 Balance -800 -400 Output: Urine 800 400 - Constitutional General appearance: Present: average body habitus, cooperative, no acute distress - EENT Eyes: Present: anicteric sclerae, EOMI ENT: Present: hearing grossly normal - Respiratory Respiratory: bilateral: CTA - Cardiovascular Rhythm: regular Heart sounds: normal: S1, S2 Abnormal Heart Sounds: Absent: systolic murmur, diastolic murmur, rub, S3 Gallop , S4 Gallop, click, other - Peripheral edema leg Peripheral Edema: bilateral: None - Gastrointestinal General gastrointestinal: Present: normal bowel sounds, soft - Integumentary Integumentary: Present: normal - Neurologic Neurologic: Present: CNII-XII intact - Musculoskeletal Musculoskeletal: Present: strength equal bilaterally - Psychiatric Psychiatric: Present: A&O x's 3, appropriate affect, intact judgment & insight - Labs CBC & Chem 7: 03/24/22 07:31 03/24/22 07:31 Labs: Microbiology - Last 24 Hours (Table) 03/25/22 12:00 Acid Fast Bacilli Smear - Final Pleural Fluid Acid Fast Bacilli Culture - Preliminary 03/25/22 12:00 Gram Stain - Preliminary Pleural Fluid Body Fluid Culture - Preliminary 03/25/22 12:00 Fungal Culture - Preliminary Pleural Fluid Assessment and Plan (1) Non-small cell cancer of right lung Status: Chronic Priority: Medium Code(s): C34.91 - MALIGNANT NEOPLASM OF UNSP PART OF RIGHT BRONCHUS OR LUNG SNOMED Code(s): 091776971 Plan: Pt is current on her f/u for NSCLC. She has f/u in DC plan, which she will keep. She will stay current with her f/u scans Pending pleural fluid cytology
== END 2022-03-26 16:40 | disposition home or self-care (01) | DRG 190 ==
LOC: EC 22:02 → 4SSUR 23:46
PROVIDERS: ADMIT Hospitalist; ATTEND Hospitalist
PROC: 0W993ZZ Drainage of Right Pleural Cavity, Percutaneous Approach (ICD-10-PCS; principal; 2022-03-25)
DX: J44.1 Chronic obstructive pulmonary disease with (acute) exacerbation (principal); J96.01 Acute respiratory failure with hypoxia; J90 Pleural effusion, not elsewhere classified; C34.91 Malignant neoplasm of unspecified part of right bronchus or lung; I82.502 Chronic embolism and thrombosis of unspecified deep veins of left lower extremity; L97.329 Non-pressure chronic ulcer of left ankle with unspecified severity; D61.818 Other pancytopenia; I11.0 Hypertensive heart disease with heart failure; I50.9 Heart failure, unspecified; I73.9 Peripheral vascular disease, unspecified; I25.10 Atherosclerotic heart disease of native coronary artery without angina pectoris; D63.0 Anemia in neoplastic disease; G89.4 Chronic pain syndrome; M54.9 Dorsalgia, unspecified; F41.9 Anxiety disorder, unspecified; I25.2 Old myocardial infarction; Z95.5 Presence of coronary angioplasty implant and graft; G47.00 Insomnia, unspecified; K59.00 Constipation, unspecified; Z79.82 Long term (current) use of aspirin; Z79.899 Other long term (current) drug therapy; Z85.118 Personal history of other malignant neoplasm of bronchus and lung; Z92.21 Personal history of antineoplastic chemotherapy; Z92.3 Personal history of irradiation; Z86.14 Personal history of Methicillin resistant Staphylococcus aureus infection; Z87.891 Personal history of nicotine dependence; Z80.1 Family history of malignant neoplasm of trachea, bronchus and lung
CPT/HCPCS: 36415; 71045; 76604; 80053; 82945; 83615; 83735; 83880; 84100; 84145; 84157; 84484; 85025; 85610; 85730; 87070; 87102; 87116; 87205; 87206; 87252; 87496; 87498; 87502; 87529; 87634; 87798; 88108; 88305; 88341; 88342; 89050; 93005; 94640; 94760; 96365; 96366; 96368; 99291

== ENCOUNTER → 2022-05-01 | Outpatient (CLI) | payer MEDICARE, OTHER ==
[2022-05-01 13:11] LABS: African American GFR (CKD) >90 (>60 ml/min/1.73 sqM); Blood Urea Nitrogen 14 mg/dL (9-20); Non-African American GFR(CKD) 88 (>60 ml/min/1.73 sqM)
--- NOTE | 2022-05-01 16:24 | CT ---
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 Delayed images through the kidneys were obtained. Coronal /sagittal reconstructions performed. CT DLP: 2127.9 mGycm Automated exposure control for dose reduction was used. FINDINGS: CHEST: Heart borderline in size. Trace anterior basilar pericardial fluid. LAD and circumflex coronary arter y calcifications are present. 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 Bovine configuration to the aortic arch with mild a pical scarring calcifications. Large caliber to the main right and left pulmonary arteries up to 2.7 cm suggesting underlying pulmon armin hypertension. Right perihilar soft tissue encasement with right infrahilar extension into the lower lobe appears un changed. Contiguous lower right paratracheal soft tissue measuring 1.6 cm is also unchanged. No enlar ging abnormal mass is seen. A couple prominent AP window lymph nodes measuring up to 1.5 cm long axis are unchanged. Small right pleural effusion is similar to slightly smaller in the interval. Background mild emphysematous change. ABDOMEN: No focal liver lesion or biliary ductal dilatation. Portal venous system is patent. Gallbladder, adrenal glands, spleen, and pancreas within normal limits. A few cortical cysts within the kidneys measuring up to 1.5 cm unchanged. Vascular calcifications in both kidneys. Moderate atherosclerotic calcifications infrarenal abdominal aorta and bilateral iliac arteries. No dilated small bowel, free fluid, or free air. No mesenteric or retroperitoneal lymphadenopathy. Mild to moderate stool burden. Redundant sigmoid colon reaching into the right side of the abdomen. PELVIS: Bladder is urine distended. An enlarged 2.1 cm left inguinal lymph node remains unchanged back to at least 06/07/2021. Extensive fatty atrophy of anterior left thigh musculature. Previous intramedullary nail within the left femur partially seen. Prostate gland measures 4.0 cm wide. No abnormal fluid co llection in the pelvis. Prominent external iliac chain lymph nodes measuring up to 1 cm are unchanged . BONES: Mild degenerative changes both hips. Degenerated levoconvex scoliosis of the lumbar spine. Vertebral compression deformity L2 is unchanged. IMPRESSION: 1. STABLE SITE OF TREATED DISEASE AND POSTTREATMENT CHANGE WITH PERSISTENT RIGHT PERIHILAR SOFT TISSU E ENCASEMENT AND RIGHT INFRAHILAR SOFT TISSUE EXTENSION. STABLE CONTIGUOUS LOWER RIGHT PARATRACHEAL S OFT TISSUE MEASURING 1.6 CM. NO EVIDENCE FOR DISEASE PROGRESSION. STABLE SMALL RIGHT PLEURAL EFFUSION . 2. ENLARGED 2.1 CM LEFT INGUINAL LYMPH NODE REMAINS UNCHANGED BACK TO AT LEAST 06/07/2021. 3. 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
== END | disposition home or self-care (01) ==
LOC: RADCTMAIN 11:34
PROVIDERS: ATTEND Internal Medicine Hematology & Oncology
DX: C34.11 Malignant neoplasm of upper lobe, right bronchus or lung (principal); I27.21 Secondary pulmonary arterial hypertension; J43.9 Emphysema, unspecified; J90 Pleural effusion, not elsewhere classified; R59.0 Localized enlarged lymph nodes
CPT/HCPCS: 82565; 84520; 71260; 74177; 36415; Q9967

== ENCOUNTER 2022-05-10 13:21 | Emergency (ER) | payer MEDICARE, OTHER ==
[2022-05-10 13:43] VITALS: TEMP 98
--- NOTE | 2022-05-10 14:03 | XR ---
EXAMINATION TYPE: XR chest 2V DATE OF EXAM: 05/10/2022 COMPARISON: 03/25/2022 TECHNIQUE: PA and lateral views submitted. HISTORY: Shortness of breath FINDINGS: Heart is borderline enlarged and there is underlying COPD with right-sided consolidation and pleural effusion stable relative to prior exam. Right perihilar soft tissue enlargement also reported by prev ious CT scan appear stable from prior chest x-ray. IMPRESSION: 1. Right lower lobe consolidation and small fusion is stable and superimposed on a background of COPD . 2. Right hilar soft tissue mass stable.
--- NOTE | 2022-05-10 16:04 | ED ---
SOB HPI - General Chief Complaint: Shortness of Breath Stated Complaint: SOB Time Seen by Provider: 05/10/22 15:51 Source: patient Mode of arrival: ambulatory Limitations: no limitations - History of Present Illness Initial Comments: This patient is a 71-year-old man with history of previous right lung cancer, and recurrent right-sided pleural effusions, who presents with complaint that his breathing has worsened over about the past week or so. He states that it feels to him as if the pleural effusion has recurred, he states it had last done so a number of months ago. He states that he had have it drained. He follows with Dr. Paul, and had schedule an appointment but his breathing worsened and he did not feel he can wait for the clinic appointment. He has not had fever or chills. No productive cough. No change in urination or bowel movements. He does have long-standing bilateral leg edema, left greater than right. He states that is been going on for well over 40 years. MD Complaint: shortness of breath Onset/Timin -: week(s) Severity scale (1-10): 0 Consistency: constant Improves With: nothing Worsens With: nothing Known History Of: other (Lung cancer and pleural effusions) Associated Symptoms: denies other symptoms Treatments Prior to Arrival: none - Related Data Home Medications Medication Instructions Recorded Confirmed Aspirin [Adult Low Dose Aspirin EC] 81 mg PO DAILY 11/11/17 05/10/22 Albuterol Sulfate [Proair Hfa] 2 puff INHALATION RT-Q4H PRN 12/05/20 05/10/22 Ondansetron [Zofran] 4 mg PO TID PRN 12/05/20 05/10/22 carvediloL [Coreg*] 12.5 mg PO BID 12/05/20 05/10/22 oxyCODONE-APAP 10-325MG [Percocet 1 tab PO TID PRN 12/05/20 05/10/22 10-325 mg] Formoterol Fumarate [Perforomist] 20 mcg INHALATION RT-BID 12/21/20 05/10/22 Morphine Sulfate ER [Ms Contin] 15 mg PO Q12H 01/12/21 05/10/22 Multivit-Min/Folic/Vit K/Lycop 1 tab PO DAILY 01/12/21 05/10/22 [Men's Multivitamin Tablet] Ipratropium-Albuterol Nebulize 3 ml INHALATION RT-QID 07/11/21 05/10/22 [Duoneb 0.5 mg-3 mg/3 ml Soln] ALPRAZolam [Xanax] 0.25 mg PO Q12H PRN 03/24/22 05/10/22 Atorvastatin [Lipitor] 20 mg PO HS 03/24/22 05/10/22 Collagenase [Santyl Ointment] 1 applic TOPICAL DAILY PRN 03/24/22 05/10/22 Losartan [Cozaar] 25 mg PO DAILY 03/24/22 05/10/22 Naloxone HCl [Narcan] 4 mg NASAL DAILY PRN 03/24/22 05/10/22 Previous Rx's Medication Instructions Recorded Furosemide [Lasix] 20 mg PO BID 30 Days #60 tab 01/20/21 predniSONE 60 mg PO DAILY #30 tab 05/10/22 Allergies Allergy/AdvReac Type Severity Reaction Status Date / Time No Known Allergies Allergy Verified 05/10/22 16:41 Review of Systems ROS Statement: Those systems with pertinent positive or pertinent negative responses have been documented in the HPI. ROS Other: All systems not noted in ROS Statement are negative. Constitutional: Denies: fever, chills ENT: Denies: congestion Respiratory: Reports: cough, dyspnea. Denies: wheezes, hemoptysis Cardiovascular: Reports: edema (Chronic). Denies: chest pain, palpitations, syncope Gastrointestinal: Denies: abdominal pain, vomiting, diarrhea, melena, hematochezia Genitourinary: Denies: dysuria, hematuria Musculoskeletal: Denies: back pain Skin: Denies: rash Neurological: Denies: headache, weakness Past Medical History Past Medical History: Cancer, Chest Pain / Angina, Heart Failure, COPD, Hy pertension, Myocardial Infarction (NE), Skin Disorder Additional Past Medical History / Comment(s): chronic back pain, NE spring 2015; pt has history of PVD with LLE cellulitis, states he had vascular surgery to improve healing, lung CA, had chemo and radiation immunotherapy (last had immunotherapy about 3 months ago.) Last Myocardial Infarction Date:: 2015 History of Any Multi-Drug Resistant Organisms: MRSA Date of last positivie culture/infection: 06/25/17 MDRO Source:: LEFT LEG Past Surgical History: Heart Catheterization With Stent, Hernia Repair, Orthopedic Surgery Additional Past Surgical History / Comment(s): left femur ORIF 40 years ago and luisa shoulder surgery- rotator repair, left leg bypass; two stents placed in November 2019, hernia repair 2019 Past Anesthesia/Blood Transfusion Reactions: No Reported Reaction Date of Last Stent Placement:: November 2019 Past Psychological History: Anxiety Smoking Status: Former smoker Past Alcohol Use History: Heavy Past Drug Use History: None Reported - Past Family History Father Additional Family Medical History / Comment(s): lung cancer Brother(s) Additional Family Medical History / Comment(s): lung cancer General Exam Limitations: no limitations General appearance: alert, in no apparent distress Head exam: Present: atraumatic, normocephalic Eye exam: Present: normal appearance. Absent: scleral icterus, conjunctival injection Neck exam: Present: normal inspection Respiratory exam: Present: wheezes, decreased breath sounds (Right base). Absent: respiratory distress, rales, rhonchi, stridor, accessory muscle use Cardiovascular Exam: Present: regular rate, normal rhythm, normal heart sounds. Absent: systolic murmur, diastolic murmur, rubs, gallop GI/Abdominal exam: Present: soft. Absent: distended, tenderness, guarding, rebound, rigid, mass Extremities exam: Present: normal inspection, normal capillary refill, pedal edema (Left greater than right). Absent: calf tenderness Back exam: Present: normal inspection. Absent: CVA tenderness (R), CVA ten derness (L) Neurological exam: Present: alert Skin exam: Present: warm, dry, intact, normal color. Absent: rash Course Vital Signs 05/10/22 05/10/22 13:40 16:44 Temperature 98 F Pulse Rate 100 90 Respiratory 20 18 Rate Blood Pressure 168/85 171/90 O2 Sat by Pulse 93 L 98 Oximetry Medical Decision Making - Lab Data Result diagrams: 05/10/22 16:27 05/10/22 16:27 Lab Results 05/10/22 05/10/22 05/10/22 Range/Units 16:27 16:27 16:27 WBC 4.6 (3.8-10.6) k/uL RBC 4.19 L (4.30-5.90) m/uL Hgb 12.4 L (13.0-17.5) gm/dL Hct 36.9 L (39.0-53.0) % MCV 88.1 (80.0-100.0) fL MCH 29.6 (25.0-35.0) pg MCHC 33.5 (31.0-37.0) g/dL RDW 15.0 (11.5-15.5) % Plt Count 254 (150-450) k/uL MPV 7.2 Neutrophils % 71 % Lymphocytes % 11 % Monocytes % 11 % Eosinophils % 3 % Basophils % 1 % Neutrophils # 3.3 (1.3-7.7) k/uL Lymphocytes # 0.5 L (1.0-4.8) k/uL Monocytes # 0.5 (0-1.0) k/uL Eosinophils # 0.1 (0-0.7) k/uL Basophils # 0.0 (0-0.2) k/uL Hypochromasia Slight PT 9.5 (9.0-12.0) sec INR 0.9 (<1.2) APTT 23.3 (22.0-30.0) sec D-Dimer 3.53 H (<0.60) mg/L FEU Sodium 141 (137-145) mmol/L Potassium 4.4 (3.5-5.1) mmol/L Chloride 106 (98-107) mmol/L Carbon Dioxide 27 (22-30) mmol/L Anion Gap 8 mmol/L BUN 13 (9-20) mg/dL Creatinine 0.68 (0.66-1.25) mg/dL Est GFR (CKD-EPI)AfAm >90 (>60 ml/min/1.73 sqM) Est GFR (CKD-EPI)NonAf >90 (>60 ml/min/1.73 sqM) Glucose 94 (74-99) mg/dL Plasma Lactic Acid Elder (0.7-2.0) mmol/L Calcium 9.2 (8.4-10.2) mg/dL Total Bilirubin 0.5 (0.2-1.3) mg/dL AST 29 (17-59) U/L ALT 23 (4-49) U/L Alkaline Phosphatase 158 H (38-126) U/L Troponin I (0.000-0.034) ng/mL NT-Pro-B Natriuret Pep pg/mL Total Protein 6.5 (6.3-8.2) g/dL Albumin 4.1 (3.5-5.0) g/dL Coronavirus (PCR) (Not Detectd) Influenza Type A RNA (Not Detectd) Influenza Type B (PCR) (Not Detectd) 05/10/22 05/10/22 05/10/22 Range/Units 16:27 16:27 16:27 WBC (3.8-10.6) k/uL RBC (4.30-5.90) m/uL Hgb (13.0-17.5) gm/dL Hct (39.0-53.0) % MCV (80.0-100.0) fL MCH (25.0-35.0) pg MCHC (31.0-37.0) g/dL RDW (11.5-15.5) % Plt Count (150-450) k/uL MPV Neutrophils % % Lymphocytes % % Monocytes % % Eosinophils % % Basophils % % Neutrophils # (1.3-7.7) k/uL Lymphocytes # (1.0-4.8) k/uL Monocytes # (0-1.0) k/uL Eosinophils # (0-0.7) k/uL Basophils # (0-0.2) k/uL Hypochromasia PT (9.0-12.0) sec INR (<1.2) APTT (22.0-30.0) sec D-Dimer (<0.60) mg/L FEU Sodium (137-145) mmol/L Potassium (3.5-5.1) mmol/L Chloride (98-107) mmol/L Carbon Dioxide (22-30) mmol/L Anion Gap mmol/L BUN (9-20) mg/dL Creatinine (0.66-1.25) mg/dL Est GFR (CKD-EPI)AfAm (>60 ml/min/1.73 sqM) Est GFR (CKD-EPI)NonAf (>60 ml/min/1.73 sqM) Glucose (74-99) mg/dL Plasma Lactic Acid Elder 1.0 (0.7-2.0) mmol/L Calcium (8.4-10.2) mg/dL Total Bilirubin (0.2-1.3) mg/dL AST (17-59) U/L ALT (4-49) U/L Alkaline Phosphatase (38-126) U/L Troponin I <0.012 (0.000-0.034) ng/mL NT-Pro-B Natriuret Pep 2140 pg/mL Total Protein (6.3-8.2) g/dL Albumin (3.5-5.0) g/dL Coronavirus (PCR) (Not Detectd) Influenza Type A RNA (Not Detectd) Influenza Type B (PCR) (Not Detectd) 05/10/22 05/10/22 Range/Units 16:48 16:48 WBC (3.8-10.6) k/uL RBC (4.30-5.90) m/uL Hgb (13.0-17.5) gm/dL Hct (39.0-53.0) % MCV (80.0-100.0) fL MCH (25.0-35.0) pg MCHC (31.0-37.0) g/dL RDW (11.5-15.5) % Plt Count (150-450) k/uL MPV Neutrophils % % Lymphocytes % % Monocytes % % Eosinophils % % Basophils % % Neutrophils # (1.3-7.7) k/uL Lymphocytes # (1.0-4.8) k/uL Monocytes # (0-1.0) k/uL Eosinophils # (0-0.7) k/uL Basophils # (0-0.2) k/uL Hypochromasia PT (9.0-12.0) sec INR (<1.2) APTT (22.0-30.0) sec D-Dimer (<0.60) mg/L FEU Sodium (137-145) mmol/L Potassium (3.5-5.1) mmol/L Chloride (98-107) mmol/L Carbon Dioxide (22-30) mmol/L Anion Gap mmol/L BUN (9-20) mg/dL Creatinine (0.66-1.25) mg/dL Est GFR (CKD-EPI)AfAm (>60 ml/min/1.73 sqM) Est GFR (CKD-EPI)NonAf (>60 ml/min/1.73 sqM) Glucose (74-99) mg/dL Plasma Lactic Acid Elder (0.7-2.0) mmol/L Calcium (8.4-10.2) mg/dL Total Bilirubin (0.2-1.3) mg/dL AST (17-59) U/L ALT (4-49) U/L Alkaline Phosphatase (38-126) U/L Troponin I (0.000-0.034) ng/mL NT-Pro-B Natriuret Pep pg/mL Total Protein (6.3-8.2) g/dL Albumin (3.5-5.0) g/dL Coronavirus (PCR) Not Detected (Not Detectd) Influenza Type A RNA Not Detected (Not Detectd) Influenza Type B (PCR) Not Detected (Not Detectd) - EKG Data -: EKG Interpreted by [facility] EKG shows normal: sinus rhythm, axis (Normal), intervals (Normal) Rate: normal (Rate 92 bpm) Interpretation: nonspecific ST-T wave changes Disposition Clinical Impression: COPD (chronic obstructive pulmonary disease), Dyspnea Disposition: HOME SELF-CARE Condition: Good Instructions (If sedation given, give patient instructions): Chronic Bronchitis (ED) Prescriptions: predniSONE 60 mg PO DAILY #30 tab Is patient prescribed a controlled substance at d/c from ED?: No Referrals: Chris Bellamy MD [Primary Care Provider] - 1-2 days
[2022-05-10 16:45] VITALS: RESP 18
[2022-05-10 17:14] LABS: Basophils % (A) 1 %; Eosinophils # (A) 0.1 k/uL (0-0.7); Eosinophils % (A) 3 %; HCT 36.9 % (39.0-53.0); HGB 12.4 gm/dL (13.0-17.5); Hypochromasia Slight; Lymphocytes # (A) 0.5 k/uL (1.0-4.8); Lymphocytes % (A) 11 %; MCH 29.6 pg (25.0-35.0); MCHC 33.5 g/dL (31.0-37.0); MCV 88.1 fL (80.0-100.0); Mean Platelet Volume 7.2; Monocytes # (A) 0.5 k/uL (0-1.0); Monocytes % (A) 11 %; Neutrophils # (A) 3.3 k/uL (1.3-7.7); Neutrophils % (A) 71 %; Platelet Count 254 k/uL (150-450); RBC 4.19 m/uL (4.30-5.90); WBC 4.6 k/uL (3.8-10.6)
[2022-05-10 17:20] LABS: ALT 23 U/L (4-49); AST 29 U/L (17-59); African American GFR (CKD) >90 (>60 ml/min/1.73 sqM); Albumin 4.1 g/dL (3.5-5.0); Alkaline Phosphatase 158 U/L (38-126); Anion Gap 8 mmol/L; Blood Urea Nitrogen 13 mg/dL (9-20); Calcium 9.2 mg/dL (8.4-10.2); Carbon Dioxide 27 mmol/L (22-30); Chloride 106 mmol/L (98-107); Glucose 94 mg/dL (74-99); Non-African American GFR(CKD) >90 (>60 ml/min/1.73 sqM); Potassium 4.4 mmol/L (3.5-5.1); Sodium 141 mmol/L (137-145); Total Bilirubin 0.5 mg/dL (0.2-1.3); Total Protein 6.5 g/dL (6.3-8.2)
[2022-05-10 17:22] LABS: INR 0.9 (<1.2); Partial Thromboplastin Time 23.3 sec (22.0-30.0); Prothrombin Time 9.5 sec (9.0-12.0)
--- NOTE | 2022-05-10 19:03 | CT ---
CT CHEST FOR PULMONARY EMBOLISM. EXAMINATION TYPE: CT chest angio for PE DATE OF EXAM: 05/10/2022 INDICATION: SOB, hx of lung ca CT DLP: 606.7 mGycm, Automated exposure control for dose reduction was used. CONTRAST: Patient injected with 90cc mL of Isovue 370. COMPARISON: TECHNIQUE: CT of the chest is performed on a spiral scan at 2 mm thick sections. Study is performed with intravenous contrast timed for evaluation for pulmonary embolism. This will limit additional po rtions of the evaluation. 3-D MIP images reconstructed by the technologist are reviewed on the compu ter in the coronal and sagittal planes. FINDINGS: No persistent filling defects are evident to suggest an acute pulmonary embolism. No mediastinal or hilar adenopathy enlarged by CT criteria is evident. Scattered small lymph nodes ar e present. The ascending aorta diameter at the level of the main pulmonary artery is 3.7 cm. The randy n pulmonary artery diameter at the bifurcation is 3.1 cm. There is a small right pleural effusion. There is a consolidation in the infrahilar region on the rig ht. Some perihilar increased lung markings are present. Findings may be related to the patient's know n lung cancer. Limited CT section through the upper abdomen are unremarkable. IMPRESSIONS: 1. No acute pulmonary embolism. 2. Right perihilar increased lung markings likely related to the patient's known lung cancer. 3. Small right pleural effusion
[2022-05-10] MEDS ORDERED: methylPREDNISolone SOD SUCCI 125 MG/2 ML VIAL IV STA (20:05)
[2022-05-10 20:54] VITALS: BP 169/95; PULSE 91
== END 2022-05-10 20:54 | disposition home or self-care (01) ==
LOC: EC 13:21
DX: J44.9 Chronic obstructive pulmonary disease, unspecified (principal); I11.0 Hypertensive heart disease with heart failure; J90 Pleural effusion, not elsewhere classified; C34.90 Malignant neoplasm of unspecified part of unspecified bronchus or lung; I50.9 Heart failure, unspecified; I25.2 Old myocardial infarction; F41.9 Anxiety disorder, unspecified; Z87.891 Personal history of nicotine dependence; Z20.822 Contact with and (suspected) exposure to COVID-19; Z79.82 Long term (current) use of aspirin; Z79.899 Other long term (current) drug therapy
CPT/HCPCS: 99285 ×2; 96374 ×2; 36415; 93005; 85379; 83880; 80053; 83605; 84484; 85025; 85610; 85730; 87502; 87635; 71046; 71275; J2930; Q9967

== ENCOUNTER → 2022-11-23 | Outpatient (CLI) | payer MEDICARE, OTHER ==
[2022-11-23 12:55] LABS: African American GFR (CKD) >90 (>60 ml/min/1.73 sqM); Blood Urea Nitrogen 20 mg/dL (9-20); Non-African American GFR(CKD) >90 (>60 ml/min/1.73 sqM)
--- NOTE | 2022-11-25 19:30 | CT ---
EXAMINATION TYPE: CT ChestAbdPelvis w con DATE OF EXAM: 11/23/2022 INDICATION: follow up ca COMPARISON: 05/01/2022 CT DLP: 2068 mGycm CONTRAST: Performed with Oral Contrast and with IV Contrast, patient injected with 100 mL of Isovue 300. TECHNIQUE: Axial images at 1 mm thick sections. Reconstructed images in the coronal plane. Delayed images through the kidneys. FINDINGS: CT CHEST: Portion of the thyroid visualized is normal. Punctate nodularity in the periphery of the right lateral lung apex present previously. There may be a punctate density in the anterior lateral left upper lung field. Punctate nodular density within the periphery of the anterolateral right upper lung field. Series 4 image 80. This may have been present previously. Large consolidation of air bronchograms in the right infrahilar region. This places the bronchi. This appears improved from the comparison study. There is prominent soft tissue in the pretracheal space measuring 1.3 cm. A couple of smaller periaor tic lymph nodes are present less than 1 cm. Some mild soft tissue thickening in the subcarinal region measuring 1.4 cm. Soft tissue density is in the right infrahilar region measuring 5.3 x 3.3 cm. This has present previously. Mild coronary artery calcification is present. Small right pleural effusion is present. The ascending aorta diameter at the level of the main pulmonary artery is 3.7 cm. The main pulmonary artery diameter at the bifurcation is 2.[address] ABDOMEN: Liver: Normal Spleen: Normal Pancreas: Normal Adrenal glands: The adrenal glands are normal. Gallbladder: Normal Kidneys: No masses are evident. No hydronephrosis is present. No cysts are present. No suspicious obstructing renal stones are evident. Some vascular calcification may be present. Aorta: Vascular calcification is within the aorta. Inferior vena cava: Normal. At the inferior vena cava there appears to be a bypass vascular graft ext ending to the left from the common femoral vein. CT PELVIS: Loops of bowel within the abdomen and pelvis are normal. There are loops of bowel which are incom pletely distended or lack oral contrast limiting their evaluation. Appendix: Not identified. No dilated tubular structure is evident. Urinary bladder: Normal. Genitourinary structures: Prostate is normal. Osseous structures: There appears to be a sclerotic area along the greater trochanter of the right h ip. Left medullary femur medullary jakob is present. Advanced degenerative changes are through the scol iotic lumbar spine with loss of disc height. L2 vertebral body height loss is present. IMPRESSIONS: 1. 1. Infrahilar soft tissue density suspicious for neoplasm. This area is similar to comparison. 2. Small right pleural effusion. 3. Soft tissue density within the mediastinum. Metastatic lymphadenopathy is not excluded. 4. Sclerotic area along the greater trochanter right hip suspicious for sclerotic metastasis.
== END | disposition home or self-care (01) ==
LOC: RADCTMAIN 12:07
PROVIDERS: ATTEND Internal Medicine Hematology & Oncology
DX: Z03.89 Encounter for observation for other suspected diseases and conditions ruled out (principal); C34.11 Malignant neoplasm of upper lobe, right bronchus or lung; J90 Pleural effusion, not elsewhere classified; J98.4 Other disorders of lung; J98.59 Other diseases of mediastinum, not elsewhere classified; M25.851 Other specified joint disorders, right hip; M79.89 Other specified soft tissue disorders
CPT/HCPCS: 82565; 84520; 71260; 74177; Q9967

== ENCOUNTER 2023-03-10 15:13 | Inpatient (IN) | payer MEDICARE, OTHER ==
[2023-03-10] MEDS ORDERED: PNEUMONIA PROTOCOL UTILIZED 1 EACH MISC PO PRN (15:37)
[2023-03-10] MEDS ORDERED: ACETAMINOPHEN TAB 325 MG TAB PO PRN (15:37)
[2023-03-10] MEDS ORDERED: NALOXONE 0.4 MG/ML 1 ML VIAL IV PRN (15:37)
--- NOTE | 2023-03-10 15:37 | ED ---
General Adult HPI - General Chief complaint: Recheck/Abnormal Lab/Rx Stated complaint: Leg pain Time Seen by Provider: 03/10/23 15:23 Source: patient, EMS, RN notes reviewed Mode of arrival: EMS Limitations: no limitations - History of Present Illness Initial comments: Patient is a pleasant 72-year-old male presenting to the emergency department with concerns for intractable pain. Patient has history of lung cancer with bony metastasis. Patient did go to [facility]. Patient is unable to walk any more. They also had concern for chest x-ray with pneumonia. Patient was started on antibiotics. Patient does see oncology here. Patient is scheduled to have radiation therapy started this week. - Related Data Home Medications Medication Instructions Recorded Confirmed Aspirin [Adult Low Dose Aspirin EC] 81 mg PO DAILY 11/11/17 02/08/23 Ondansetron [Zofran] 4 mg PO TID PRN 12/05/20 02/08/23 carvediloL [Coreg*] 12.5 mg PO BID 12/05/20 02/08/23 oxyCODONE-APAP 10-325MG [Percocet 1 tab PO TID 12/05/20 02/08/23 10-325 mg] Formoterol Fumarate [Perforomist] 20 mcg INHALATION RT-BID 12/21/20 02/08/23 Morphine Sulfate ER [Ms Contin] 15 mg PO Q12H 01/12/21 02/08/23 Ipratropium-Albuterol Nebulize 3 ml INHALATION RT-TID 07/11/21 02/08/23 [Duoneb 0.5 mg-3 mg/3 ml Soln] ALPRAZolam [Xanax] 0.25 mg PO Q12H PRN 03/24/22 02/08/23 Atorvastatin [Lipitor] 20 mg PO HS 03/24/22 02/08/23 Albuterol Nebulized [Ventolin 2.5 mg INHALATION RT-QID PRN 02/08/23 02/08/23 Nebulized] Famotidine 40 mg PO BID 02/08/23 02/08/23 Furosemide [Lasix] 60 mg PO DAILY 02/08/23 02/08/23 Linaclotide [Linzess] 145 mcg PO DAILY 02/08/23 02/08/23 Losartan [Cozaar] 50 mg PO DAILY 02/08/23 02/08/23 Potassium Chloride [Klor-Con M20] 20 meq PO DAILY 02/08/23 02/08/23 cloNIDine HCL 0.1 mg PO DAILY PRN 02/08/23 02/08/23 predniSONE 5 mg PO BID 02/08/23 02/08/23 Previous Rx's Medication Instructions Recorded Psyllium Husk 100% [Metamucil 6 gm PO BID packet 02/11/23 Packet] Allergies Allergy/AdvReac Type Severity Reaction Status Date / Time No Known Allergies Allergy Verified 03/10/23 15:20 Review of Systems ROS Statement: Those systems with pertinent positive or pertinent negative responses have been documented in the HPI. ROS Other: All systems not noted in ROS Statement are negative. Constitutional: Denies: fever Respiratory: Denies: cough, dyspnea Past Medical History Past Medical History: Cancer, Chest Pain / Angina, Heart Failure, COPD, Hypert ension, Myocardial Infarction ([place]), Skin Disorder Additional Past Medical History / Comment(s): chronic back pain, [place] spring 2015; pt has history of PVD with LLE cellulitis, states he had vascular surgery to improve healing, lung CA, had chemo and radiation immunotherapy 2020 Last Myocardial Infarction Date:: 2015 History of Any Multi-Drug Resistant Organisms: MRSA Date of last positivie culture/infection: 06/25/17 MDRO Source:: LEFT LEG Past Surgical History: Heart Catheterization With Stent, Hernia Repair, Orthopedic Surgery Additional Past Surgical History / Comment(s): left femur ORIF 40 years ago and luisa shoulder surgery- rotator repair, left leg bypass; two stents placed in November 2019, hernia repair 2019 Past Anesthesia/Blood Transfusion Reactions: No Reported Reaction Date of Last Stent Placement:: November 2019 Past Psychological History: Anxiety Smoking Status: Former smoker Past Alcohol Use History: Heavy Past Drug Use History: None Reported - Past Family History Father Additional Family Medical History / Comment(s): lung cancer Brother(s) Additional Family Medical History / Comment(s): lung cancer General Exam Limitations: no limitations General appearance: alert, in no apparent distress Head exam: Present: normocephalic Eye exam: Present: normal appearance Neck exam: Present: normal inspection Respiratory exam: Present: normal lung sounds bilaterally Cardiovascular Exam: Present: regular rate, normal rhythm GI/Abdominal exam: Present: soft. Absent: tenderness Extremities exam: Present: tenderness (Mild left hip) Neurological exam: Present: alert Psychiatric exam: Present: normal affect, normal mood Skin exam: Present: normal color Course Vital Signs 03/10/23 15:17 Temperature 99.3 F Pulse Rate 73 Respiratory 18 Rate Blood Pressure 100/60 O2 Sat by Pulse 91 L Oximetry Medical Decision Making - Medical Decision Making Was pt. sent in by a medical professional or institution (, CRISTOFER, SOLE LEVELER MACHINE, urgent care, hospital, or jail...) When possible be specific @ -Patient was sent from [facility] Did you speak to anyone other than the patient for history (EMS, parent, family, police, friend...)? What history was obtained from this source @ -I did speak with Dr. paul regarding this patient Did you review nursing and triage notes (agree or disagree)? Why? @ -I reviewed and agree with nursing and triage notes Were old charts reviewed (outside hosp., previous admission, EMS record, old EKG, old radiological studies, urgent care reports/EKG's, jail records)? Report findings @ -Chart reviewed from [facility] Differential Diagnosis (chest pain, altered mental status, abdominal pain women, abdominal pain men, vaginal bleeding, weakness, fever, dyspnea, syncope, headache, dizziness, GI bleed, back pain, seizure, CVA, palpatations, mental health, musculoskeletal)? @ -Differential Musculoskeletal Muscular strain, contusion, ligament sprain, fracture, arthritis, septic arthritis, bursitis, cellulitis, muscle spasm, nerve compression, DVT, arterial occlusion, herpes zoster, electrolyte abnormality, tumor.... This is not meant to be in all inclusive list EKG interpreted by me (3pts min.). @ -As above X-rays interpreted by me (1pt min.). @ -None done CT interpreted by me (1pt min.). @ -None done U/S interpreted by me (1pt. min.). @ -None done What testing was considered but not performed or refused? (CT, X-rays, U/S, labs)? Why? @ -None What meds were considered but not given or refused? Why? @ -None Did you discuss the management of the patient with other professionals (professionals i.e. , CRISTOFER, SOLE LEVELER MACHINE, lab, RT, psych nurse, social service coordinator, envelope folding machine adjuster, teacher, customs and border protection officer, pillowcase turner)? Give summary @ -Case was also discussed with Dr. Sr, who will admit For Dr. Bellamy. Was smoking cessation discussed for >3mins.? @ -No Was critical care preformed (if so, how long)? @ -No Were there social determinants of health that impacted care today? How? (Homelessness, low income, unemployed, alcoholism, drug addiction, transportation, low edu. Level, literacy, decrease access to med. care, mcc, rehab)? @ -No Was there de-escalation of care discussed even if they declined (Discuss DNR or withdrawal of care, Hospice)? DNR status @ -No What co-morbidities impacted this encounter? (DM, HTN, Smoking, COPD, CAD, Cancer, CVA, ARF, Chemo, Hep., AIDS, mental health diagnosis, sleep apnea, morbid obesity)? @ -None Was patient admitted / discharged? Hospital course, mention meds given and route, prescriptions, significant lab abnormalities, going to OR and other pertinent info. @ -Reviewed. Patient will be admitted. And about X will be continued for pneumonia. Patient will have consult placed for oncology. Admission orders written. Undiagnosed new problem with uncertain prognosis? @ -No Drug Therapy requiring intensive monitoring for toxicity (Heparin, Nitro, Insulin, Cardizem)? @ -No Were any procedures done? @ -No Diagnosis/symptom? @ -Pneumonia, intractable pain Acute, or Chronic, or Acute on Chronic? @ -Acute, acute on chronic Uncomplicated (without systemic symptoms) or Complicated (systemic symptoms)? @ -default Side effects of treatment? @ -No Exacerbation, Progression, or Severe Exacerbation? @ -No Poses a threat to life or bodily function? How? (Chest pain, [place], [place], pneumonia, PE, COPD, DKA, ARF, appy, cholecystitis, CVA, Diverticulitis, Homicidal, Suicidal, threat to staff... and all critical care pts) @ -No Disposition Clinical Impression: Pneumonia, Intractable pain Disposition: ADMITTED IP TO THIS [facility] Condition: Serious Is patient prescribed a controlled substance at d/c from ED?: No Referrals: Chris Bellamy MD [Primary Care Provider] - 1-2 days Time of Disposition: 15:37
[2023-03-10] MEDS: HYDROmorphone 0.5 MG/0.5 ML SYRINGE IVP PRN (15:45)
[2023-03-10] MEDS: HYDROmorphone 1 MG/ML 1 ML SYRINGE IVP PRN (18:45)
[2023-03-10] MEDS ORDERED: SODIUM CHLORIDE 0.65% NASAL SPRAY 44 ML BTL INTRANASAL PRN (19:46)
[2023-03-10] MEDS: FORMOTEROL FUMARATE 20 MCG/2 ML NEBU INHALATION SCH (21:11)
[2023-03-10] MEDS: IPRATROPIUM-ALBUTEROL 3 ML NEB INHALATION SCH (21:11)
[2023-03-10] MEDS: DEXTROSE 5%-0.45% NACL 1,000 ML IV SCH (21:26)
[2023-03-10] MEDS: methocarbamoL 500 MG TAB PO SCH (21:30)
[2023-03-10] MEDS: FAMOTIDINE 20 MG TAB PO SCH (21:30)
[2023-03-10] MEDS: ATORVASTATIN 20 MG TAB PO SCH (21:30)
[2023-03-10] MEDS: APIXABAN 5 MG TAB PO SCH (21:30)
[2023-03-10] MEDS: carvediloL 12.5 MG TAB PO SCH (21:30)
[2023-03-10] MEDS: MAGNESIUM OXIDE 400 MG TAB PO SCH (21:30)
[2023-03-10] MEDS: METHADONE 10 MG TAB PO SCH (21:30)
[2023-03-10] MEDS: predniSONE 5 MG TAB PO SCH (21:35)
[2023-03-11] MEDS: HYDROmorphone 1 MG/ML 1 ML SYRINGE IVP PRN ×5 (00:37→22:56)
[2023-03-11] MEDS: IPRATROPIUM-ALBUTEROL 3 ML NEB INHALATION SCH ×4 (01:19→18:27)
[2023-03-11] MEDS: DEXTROSE 5%-0.45% NACL 1,000 ML IV SCH ×2 (05:41→16:03)
[2023-03-11] MEDS: carvediloL 12.5 MG TAB PO SCH ×2 (07:36→17:51)
[2023-03-11] MEDS: FORMOTEROL FUMARATE 20 MCG/2 ML NEBU INHALATION SCH ×2 (07:51→18:27)
[2023-03-11] MEDS: APIXABAN 5 MG TAB PO SCH ×2 (08:50→22:21)
[2023-03-11] MEDS: predniSONE 5 MG TAB PO SCH ×2 (08:50→22:21)
[2023-03-11] MEDS: THIAMINE 100 MG TAB PO SCH (08:50)
[2023-03-11] MEDS: MAGNESIUM OXIDE 400 MG TAB PO SCH ×2 (08:51→22:20)
[2023-03-11] MEDS: METHADONE 10 MG TAB PO SCH ×2 (08:51→22:21)
[2023-03-11] MEDS: FAMOTIDINE 20 MG TAB PO SCH ×2 (08:51→22:20)
[2023-03-11] MEDS: AZITHROMYCIN 500 MG TAB PO SCH (08:52)
[2023-03-11] MEDS: SENNOSIDES 8.6 MG TAB PO SCH (08:52)
[2023-03-11] MEDS: methocarbamoL 500 MG TAB PO SCH ×4 (08:52→22:28)
--- NOTE | 2023-03-11 09:08 | XR ---
EXAMINATION TYPE: XR chest 1V portable DATE OF EXAM: 03/11/2023 COMPARISON: 02/08/2023 HISTORY: Lung cancer TECHNIQUE: Single frontal view of the chest is obtained. FINDINGS: Destructive left-sided rib masses are seen. Postsurgical change left shoulder and right sh oulder suggestive of rotator cuff repair surgery. Right-sided consolidation and small effusion. Apical pleural thickening with volume loss on the right. Heart is enlarged. Atherosclerotic changes o f aorta. No overt failure. IMPRESSION: 1. Right lower lobe infiltrate and small effusion. 2. Destructive left-sided rib lesions.
[2023-03-11 09:37] LABS: Anisocytosis Slight; Basophils % (A) 0 %; Eosinophils # (A) 0.1 k/uL (0-0.7); Eosinophils % (A) 1 %; HCT 29.7 % (39.0-53.0); Hypochromasia Marked; Lymphocytes # (A) 0.4 k/uL (1.0-4.8); Lymphocytes % (A) 7 %; MCHC 31.5 g/dL (31.0-37.0); MCV 92.1 fL (80.0-100.0); Mean Platelet Volume 7.7; Monocytes # (A) 0.4 k/uL (0-1.0); Monocytes % (A) 7 %; Neutrophils # (A) 4.6 k/uL (1.3-7.7); Neutrophils % (A) 81 %; Platelet Count 219 k/uL (150-450); Poikilocytosis Slight; RBC 3.22 m/uL (4.30-5.90); RDW 16.4 % (11.5-15.5); WBC 5.6 k/uL (3.8-10.6)
[2023-03-11 09:39] LABS: HGB 9.4 gm/dL (13.0-17.5)
[2023-03-11 09:41] LABS: ALT 16 U/L (4-49); AST 37 U/L (17-59); African American GFR (CKD) >90 (>60 ml/min/1.73 sqM); Albumin/Globulin Ratio 1.1; Alkaline Phosphatase 436 U/L (38-126); Anion Gap 10 mmol/L; Blood Urea Nitrogen 24 mg/dL (9-20); Calcium 8.1 mg/dL (8.4-10.2); Carbon Dioxide 22 mmol/L (22-30); Chloride 103 mmol/L (98-107); Globulin 2.8 g/dL; Glucose 125 mg/dL (74-99); Non-African American GFR(CKD) >90 (>60 ml/min/1.73 sqM); Sodium 135 mmol/L (137-145); Total Bilirubin 0.6 mg/dL (0.2-1.3); Total Protein 5.8 g/dL (6.3-8.2)
[2023-03-11 10:12] LABS: Potassium 5.1 mmol/L (3.5-5.1)
[2023-03-11] MEDS: BICALUTAMIDE 50 MG TAB PO SCH (13:33)
[2023-03-11] MEDS: ONDANSETRON 4 MG TAB PO PRN (13:43)
[2023-03-11] MEDS: PSYLLIUM HUSK 100% 6 GM PACKET PO SCH ×2 (16:03→22:21)
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
[2023-03-11] MEDS ORDERED: METHADONE 5 MG TAB PO ONE (22:00)
[2023-03-11] MEDS: ASPIRIN 81 MG PO SCH (22:20)
[2023-03-11] MEDS: ATORVASTATIN 20 MG TAB PO SCH (22:21)
[2023-03-12] MEDS: DEXTROSE 5%-0.45% NACL 1,000 ML IV SCH ×3 (00:21→21:37)
[2023-03-12] MEDS: IPRATROPIUM-ALBUTEROL 3 ML NEB INHALATION SCH ×4 (01:11→20:11)
[2023-03-12] MEDS: HYDROmorphone 1 MG/ML 1 ML SYRINGE IVP PRN ×4 (01:26→15:37)
[2023-03-12] MEDS: ONDANSETRON 4 MG TAB PO PRN (01:28)
--- NOTE | 2023-03-12 05:20 | P.CNPUL ---
History of Present Illness Consult date: 03/12/23 Requesting physician: Fer Sr Reason for consult: abnormal CXR/CT Chief complaint: Intractable pain History of present illness: I am seeing this patient in consultation today 03/12/2023 after the patient presented to the emergency room 2 days ago with intractable left thigh and back pain. Patient is a 72-year-old white male with past medical history significant for known squamous cell lung carcinoma diagnosed March 2020, s/p chemo and radiation, poor tolerance to immunotherapy, right-sided pleural effusion with previous thoracentesis, chronic obstructive pulmonary disease, congestive heart failure, hypertension, chronic back pain, peripheral vascular occlusive disease, coronary artery disease with previous stent, and is an ex smoker. Last month, the patient was admitted for left thigh pain. CT of the pelvis and left femur showed focal sclerosis in the region of the greater trochanter of the right hip with cortical discontinuity suspicious for metastatic lesion, there was also vague sclerosis involving the left iliac wing which could reflect a site of additional sclerotic metastatic lesion. There was also a significant enlargement of the prostate gland with glandular irregularity measuring 8.5 x 6.5 cm. The patient was transferred out, and reportedly had biopsies performed at [facility]. I do not have these reports, but the patient states that it was positive for metastatic prostate cancer. Patient presented to the emergency room 2 days ago with a primary complaint of intractable pain. The pain is predominantly on his left hip and lower back. He has had trouble walking. Patient has been reportedly started on Casodex for his prostate CA. His oncologist is Dr. Ignacio. Patient is currently sitting up in bed, on room air, in no acute distress. Patient actually denies any significant pulmonary complaints. Chest x-ray on arrival shows a chronic right-sided pleural effusion and possible superimposed infiltrate. Findings appear chronic in my opinion. There is also an destructive left-sided rib lesion noted. CBC on arrival did not show any leukocytosis. WBC count 5.6, hemoglobin 9.4, hematocrit 29.7, platelets 219. BMP on arrival shows sodium 135, potassium 5.1, chloride 103, serum bicarb 22, BUN 24, creatinine 0.65, glucose 125. Negative for occult blood. Procalcitonin level was mildly elevated at 0.14. Patient was empiricall y placed on Rocephin and azithromycin. Patient is afebrile. He is admitted to the general medical floor. Past Medical History Past Medical History: Cancer, Chest Pain / Angina, Heart Failure, COPD, Hypertension, Myocardial Infarction ([place]), Skin Disorder Additional Past Medical History / Comment(s): chronic back pain, [place] spring 2015; pt has history of PVD with LLE cellulitis, states he had vascular surgery to improve healing, lung CA, had chemo and radiation immunotherapy 2020 Last Myocardial Infarction Date:: 2015 History of Any Multi-Drug Resistant Organisms: None Reported, MRSA Date of last positivie culture/infection: 06/25/17 MDRO Source:: LEFT LEG Past Surgical History: Heart Catheterization With Stent, Hernia Repair, Orthopedic Surgery Additional Past Surgical History / Comment(s): left femur ORIF 40 years ago and luisa shoulder surgery- rotator repair, left leg bypass; two stents placed in November 2019, hernia repair 2019 Past Anesthesia/Blood Transfusion Reactions: No Reported Reaction Date of Last Stent Placement:: November 2019 Past Psychological History: Anxiety Smoking Status: Former smoker Past Alcohol Use History: Heavy Additional Past Alcohol Use History / Comment(s): Drinks about three alcoholic drinks a day, used to be a heavy drinker Past Drug Use History: None Reported - Past Family History Father Additional Family Medical History / Comment(s): lung cancer Brother(s) Additional Family Medical History / Comment(s): lung cancer Medications and Allergies Home Medications Medication Instructions Recorded Confirmed Type Ondansetron [Zofran] 4 mg PO TID PRN 12/05/20 03/10/23 History carvediloL [Coreg*] 12.5 mg PO BID 12/05/20 03/10/23 History Ipratropium-Albuterol Nebulize 3 ml INHALATION RT-Q6H 07/11/21 03/10/23 History [Duoneb 0.5 mg-3 mg/3 ml Soln] Atorvastatin [Lipitor] 20 mg PO HS 03/24/22 03/10/23 History Famotidine 40 mg PO BID 02/08/23 03/10/23 History Furosemide [Lasix] 60 mg PO DAILY 02/08/23 03/10/23 History predniSONE 5 mg PO BID 02/08/23 03/10/23 History Apixaban [Eliquis] 5 mg PO BID 03/10/23 03/10/23 History Formoterol Fumarate [Perforomist] 20 mcg INHALATION RT-BID 03/10/23 03/10/23 History HYDROmorphone HCL [Dilaudid] 8 mg PO Q4H PRN 03/10/23 03/10/23 History Magnesium Oxide [Mag-Ox] 400 mg PO BID 03/10/23 03/10/23 History Methadone HCl 10 mg PO BID 03/10/23 03/10/23 History Naloxone HCl [Narcan] 4 mg NASAL DIRECTED PRN 03/10/23 03/10/23 History Sennosides [Senokot] 17.2 mg PO DAILY 03/10/23 03/10/23 History Sodium Chloride [[place]] 1 spray EA NOSTRIL Q4H PRN 03/10/23 03/10/23 History Thiamine [Vitamin B-1] 100 mg PO DAILY 03/10/23 03/10/23 History methocarbamoL [Robaxin] 1,000 mg PO QID 03/10/23 03/10/23 History polyethylene glycoL 3350 [Miralax] 17 gm PO DAILY PRN 03/10/23 03/10/23 History Allergies Allergy/AdvReac Type Severity Reaction Status Date / Time No Known Allergies Allergy Verified 03/10/23 16:26 Physical Exam Vitals: Vital Signs Temp Pulse Pulse Resp BP BP Pulse Ox 03/12/23 01:23 92 03/12/23 01:12 92 03/12/23 00:57 98.6 F 91 18 130/66 92 L 03/11/23 20:00 16 03/11/23 19:09 98.4 F 87 16 111/55 92 L 03/11/23 18:42 94 03/11/23 18:34 100 03/11/23 18:27 96 03/11/23 15:33 98.2 F 95 18 103/42 92 L 03/11/23 15:05 93 20 118/72 94 L 03/11/23 13:37 98.1 F 91 17 118/71 90 L 03/11/23 09:39 88 17 117/76 93 L 03/11/23 08:10 91 03/11/23 08:00 90 03/11/23 07:51 92 95 03/11/23 07:35 98.0 F 89 19 128/73 96 03/11/23 07:03 92 19 03/11/23 05:43 94 19 120/77 91 L Intake and Output 03/11/23 03/11/23 03/12/23 14:59 22:59 06:59 Intake Total 240 Output Total 200 Balance 40 Intake: Oral 240 Output: Urine 200 Other: Voiding Method Urinal # Voids 1 Weight 95.254 kg GENERAL EXAM: Alert, obese 72-year-old white male, appears upset and in pain HEAD: Normocephalic and atraumatic EYES: Normal reaction of pupils, equal size. NOSE: Clear with pink turbinates. THROAT: No erythema or exudates. NECK: No masses, no JVD. CHEST: No chest wall deformity. LUNGS: Equal air entry with no crackles, wheeze, rhonchi or dullness. On room air. No conversational dyspnea or accessory muscle use.. CVS: S1 and S2 normal with no audible murmur, regular rhythm. No extra heart sounds ABDOMEN: Obese abdomen, no hepatosplenomegaly, active bowel sounds, no guarding or rigidity. SPINE: No scoliosis or deformity SKIN: No rashes CENTRAL NERVOUS SYSTEM: Left lower extremity weakness. No other focal deficits. EXTREMITIES: There is no peripheral edema. No clubbing, or cyanosis. Peripheral pulses are intact. Results - Laboratory Findings CBC and BMP: 03/11/23 08:21 03/11/23 08:21 Abnormal lab findings: Abnormal Labs 03/11/23 03/11/23 03/11/23 08:21 08:21 08:21 RBC 3.22 L Hgb 9.4 L D Hct 29.7 L RDW 16.4 H Lymphocytes # 0.4 L Sodium 135 L BUN 24 H Creatinine 0.65 L Glucose 125 H Calcium 8.1 L Alkaline Phosphatase 436 H Total Protein 5.8 L Albumin 3.0 L Procalcitonin 0.14 H Testosterone Level 03/11/23 12:00 RBC Hgb Hct RDW Lymphocytes # Sodium BUN Creatinine Glucose Calcium Alkaline Phosphatase Total Protein Albumin Procalcitonin Testosterone Level 40.00 L - Diagnostic Findings Chest x-ray: image reviewed Assessment and Plan Assessment: Intractable left thigh and lower back pain. Recent diagnosis of prostate cancer with osseous metastasis. Initiated on Casodex History of squamous cell lung cancer with previous chemo/radiation, intolerant immunotherapy Chronic and recurrent right-sided pleural effusion, most recent thoracentesis done on 03/25/2022. Negative for cytologically malignant cells at that time. Chest x-ray this admission shows a right lower lobe effusion and possible superimposed infiltrate. There were destructive left sided rib lesions. Chronic obstructive pulmonary disease, stable Normocytic normochromic anemia, no obvious evidence of acute blood loss Coronary artery disease with previous stent placement Hyperlipidemia Benign essential hypertension Peripheral vascular occlusive disease. History DVT, anticoagulated on Eliquis Ex smoker Plan: Patient's medications, labs, chest x-ray reviewed on room air patient denies any pulmonary complaints to me Chest x-ray findings appear chronic to me, consistent with posttreatment changes. Patient was started on empiric antibiotics for possible CAP. Procalcitonin level was mildly elevated at 0.14. Case will be reviewed by Dr. Andrews in the morning. Home medications for COPD have been resumed Negative for COVID-19 Oncology was consulted Anesthesia was consulted for pain management We will continue to follow I have personally seen and examined the patient, performed the documentation and the assessment and plan as written. Number of minutes spent on the visit:20 Time with Patient: Greater than 30
[2023-03-12] MEDS: BUDESONIDE 1 MG/2 ML NEBU INHALATION SCH ×2 (07:49→20:11)
[2023-03-12] MEDS: FORMOTEROL FUMARATE 20 MCG/2 ML NEBU INHALATION SCH ×2 (07:49→20:11)
[2023-03-12] MEDS: carvediloL 12.5 MG TAB PO SCH ×2 (08:13→17:33)
[2023-03-12] MEDS: FAMOTIDINE 20 MG TAB PO SCH ×2 (08:13→21:38)
[2023-03-12] MEDS: ASPIRIN 81 MG PO SCH (08:13)
[2023-03-12] MEDS: SENNOSIDES 8.6 MG TAB PO SCH (08:13)
[2023-03-12] MEDS: BICALUTAMIDE 50 MG TAB PO SCH (08:14)
[2023-03-12] MEDS: predniSONE 5 MG TAB PO SCH ×2 (08:14→21:38)
[2023-03-12] MEDS: APIXABAN 5 MG TAB PO SCH ×2 (08:14→21:38)
[2023-03-12] MEDS: THIAMINE 100 MG TAB PO SCH (08:14)
[2023-03-12] MEDS: MAGNESIUM OXIDE 400 MG TAB PO SCH ×2 (08:14→21:38)
[2023-03-12] MEDS: methocarbamoL 500 MG TAB PO SCH ×4 (08:14→21:39)
[2023-03-12] MEDS: AZITHROMYCIN 500 MG TAB PO SCH (08:14)
[2023-03-12] MEDS: PSYLLIUM HUSK 100% 6 GM PACKET PO SCH ×2 (08:18→21:39)
[2023-03-12] MEDS: HYDROmorphone 2 MG TAB PO PRN ×2 (11:51→18:35)
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
[2023-03-12 15:12] VITALS: BMI 30.1
--- NOTE | 2023-03-12 15:26 | P.PN ---
Subjective Progress Note Date: 03/12/23 Principal diagnosis: Intractable pain, new diagnosis of metastatic prostate cancer Objective - Vital Signs Vital signs: Vital Signs Temp 98.8 F 03/12/23 12:42 Pulse 87 03/12/23 12:42 Resp 18 03/12/23 12:42 BP 114/60 03/12/23 12:42 Pulse Ox 91 L 03/12/23 12:42 FiO2 Intake & Output 03/11/23 03/12/23 03/12/23 18:59 06:59 18:59 Intake Total 240 Output Total 200 300 775 Balance -200 -60 -775 Weight 95.254 kg 95.254 kg Intake: Oral 240 Output: Urine 200 300 775 Other: Voiding Method Urinal Urinal # Voids 1 1 - Constitutional General appearance: Present: average body habitus, cooperative, mild distress - EENT Eyes: Present: anicteric sclerae, EOMI ENT: Present: hearing grossly normal - Respiratory Details: resp even and unlabored - Cardiovascular Details: skin warm and dry to touch, radial pulse 2+ - Peripheral edema leg Peripheral Edema: bilateral: None - Neurologic Neurologic: Present: CNII-XII intact - Psychiatric Psychiatric: Present: A&O x's 3, appropriate affect, intact judgment & insight - Labs CBC & Chem 7: 03/11/23 08:21 03/11/23 08:21 Labs: Abnormal Lab Results - Last 24 Hours (Table) 03/11/23 03/11/23 03/11/23 Range/Units 08:21 12:00 12:00 Total PSA 5.7 H (<=4.0) ng/mL Procalcitonin 0.14 H (0.02-0.09) ng/mL Testosterone Level 40.00 L (86.98-780.10) ng/dL Assessment and Plan (1) Prostate cancer metastatic to bone Current Visit: Yes Status: Acute Priority: High Code(s): C61 - MALIGNANT NEOPLASM OF PROSTATE; C79.51 - SECONDARY MALIGNANT NEOPLASM OF BONE SNOMED Code(s): 68351145 (2) Intractable pain Current Visit: Yes Status: Acute Priority: High Code(s): R52 - PAIN, UNSPECIFIED SNOMED Code(s): 78945159 (3) Non-small cell cancer of right lung Current Visit: No Status: Chronic Priority: Low Code(s): C34.91 - MALIGNANT NEOPLASM OF UNSP PART OF RIGHT BRONCHUS OR LUNG SNOMED Code(s): 712555899 (4) Acute exacerbation of chronic obstructive pulmonary disease Current Visit: Yes Status: Acute Priority: High Code(s): J44.1 - CHRONIC OBSTRUCTIVE PULMONARY DISEASE W (ACUTE) EXACERBATION SNOMED Code(s): 822672146 Plan: Prostate cancer metastatic to the bone, Intractable pain -New diagnosis, from bone biopsy taken at [facility] -Casodex initiated for metastatic prostate cancer -Painful bone metastases in the left hip. After reviewing the case with radiation oncology, patient and , plan is to begin radiation treatment here. Patient is going to be in the hospital for several days adjusting medications. -Pain management has been consulted. -Medications for prevention of narcotic-induced constipation Adjusted Reviewed with the patient the diagnosis of metastatic prostate cancer to the bone With patient yesterday, and over the phone today. Follow up with Medical Oncologist already scheduled, Dr. Ignacio knows about the new diagnosis. Cont Casodex. PSMA PET scan will be Scheduled once patient is out of the hospital and rehabilitation. After 30 days of casodex, further treatment options will be discussed. Non-small cell lung cancer -Currently no evidence to suggest recurrence or progression of disease -Patient will continue on follow-up as scheduled COPD exacerbation -Management per Internal Medicine Time with Patient: Greater than 30
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
--- NOTE | 2023-03-12 16:41 | CT ---
EXAMINATION TYPE: CT pelvis wo con, CT femur LT wo con CT DLP: 1799.60 (accession [id number]), 1799.6 (accession [id number]) mGycm, Automated exposure control f or dose reduction was used. DATE OF EXAM: 03/12/2023 4:23 PM COMPARISON: Left hip radiograph 02/10/2023, CT pelvis 02/08/2023 CLINICAL INDICATION:Male, 72 years old with history of Evaluate for osseous progression, left hip aniket n; Evaluate for osseous progression, left hip pain TECHNIQUE: Standard CT of the pelvis and left femur without IV or oral contrast. Lack of IV or oral contrast limits evaluation of solid and hollow organ viscera. Coronal and sagittal reformats were pe rformed. FINDINGS: BLADDER: Moderately distended. REPRODUCTIVE: Abnormal enlarged lobulated appearance of soft tissue mass in the region of the prostat e gland with abutment of the rectum. This grossly measures 7.7 x 6.0 cm. Overall similar to prior exa m. BOWEL: No evidence of bowel obstruction. PERITONEUM: No evidence of pneumoperitoneum or free fluid. VASCULATURE: Atherosclerotic calcification of the aorta and its branches. Left iliac venous stent red emonstrated. MUSCULOSKELETAL: No acute fracture. Redemonstration of focal sclerosis in the region of the right gre ater trochanter with cortical discontinuity redemonstrated. No callus formation. This is again suspic ious for metastatic lesion with pathologic fracture. There is again vague similar sclerosis involving the left iliac wing with additional similar sclerosis with lucency involving the left greater trocha nter. Postsurgical changes with left femoral intramedullary jakob. Hardware appears intact. Osteophytic changes of the left knee. Atrophy of the thigh musculature. No sizable knee joint effusion. No fluid collection. Healed left distal femoral fracture. Additional vague sclerosis within the right initial tuberosity. Degenerative changes of the visualized lumbar spine. Overall similar appearance of the o sseous structures from prior exam. LYMPH NODES: Enlarged para-aortic and bilateral iliac chain lymph nodes. Largest on the left measures 2.2 cm short axis (series 3, image 46). Previously measured 2.0 cm. Additional enlarged left externa l iliac chain lymph node measuring 1.8 mm short axis (series 3, image 40), previously 1.3 cm. SOFT TISSUE/ABDOMINAL WALL: Post surgical changes within both inguinal regions. Postsurgical changes with surgical clips in the medial right thigh. IMPRESSION: 1. Similar vague sclerosis within the proximal left femoral neck with subtle lucencies which is david rning for metastasis. 2. Similar focal sclerosis noted within the region of the right greater trochanter with cortical disc ontinuity. This again is concerning for metastatic lesion with pathologic fracture. 3. Slight increased enlargement of para-aortic and bilateral iliac chain lymph nodes from prior exami nation consistent with worsening metastasis. 4. Redemonstration large lobulated soft tissue mass in the region of the prostate gland measuring up to 7.7 cm likely representing metastatic disease.
[2023-03-12] MEDS: ONDANSETRON 4 MG/2 ML VIAL IVP PRN (17:39)
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
[2023-03-12] MEDS: ATORVASTATIN 20 MG TAB PO SCH (21:38)
[2023-03-12] MEDS: SENNOSIDES-DOCUSATE SODIUM 1 EACH TAB PO SCH (21:39)
[2023-03-13] MEDS: HYDROmorphone 1 MG/ML 1 ML SYRINGE IVP PRN ×3 (02:42→14:00)
[2023-03-13] MEDS: traMADol 50 MG TAB PO PRN ×2 (04:01→12:44)
[2023-03-13] MEDS: BUDESONIDE 1 MG/2 ML NEBU INHALATION SCH ×2 (07:57→20:12)
[2023-03-13] MEDS: IPRATROPIUM-ALBUTEROL 3 ML NEB INHALATION SCH ×4 (07:57→20:12)
[2023-03-13] MEDS: FORMOTEROL FUMARATE 20 MCG/2 ML NEBU INHALATION SCH ×2 (07:57→20:12)
--- NOTE | 2023-03-13 08:36 | P.PN ---
Subjective Progress Note Date: 03/13/23 I am seeing this patient in consultation today 03/12/2023 after the patient presented to the emergency room 2 days ago with intractable left thigh and back pain. Patient is a 72-year-old white male with past medical history significant for known squamous cell lung carcinoma diagnosed March 2020, s/p chemo and radiation, poor tolerance to immunotherapy, right-sided pleural effusion with previous thoracentesis, chronic obstructive pulmonary disease, congestive heart failure, hypertension, chronic back pain, peripheral vascular occlusive disease, coronary artery disease with previous stent, and is an ex smoker. Last month, the patient was admitted for left thigh pain. CT of the pelvis and left femur showed focal sclerosis in the region of the greater trochanter of the right hip with cortical discontinuity suspicious for metastatic lesion, there was also vague sclerosis involving the left iliac wing which could reflect a site of additional sclerotic metastatic lesion. There was also a significant enlargement of the prostate gland with glandular irregularity measuring 8.5 x 6.5 cm. The patient was transferred out, and reportedly had biopsies performed at [facility]. I do not have these reports, but the patient states that it was positive for metastatic prostate cancer. Patient presented to the emergency room 2 days ago with a primary complaint of intractable pain. The pain is predominantly on his left hip and lower back. He has had trouble walking. Patient has been reportedly started on Casodex for his prostate CA. His oncologist is Dr. Ignacio. Patient is currently sitting up in bed, on room air, in no acute distress. Patient actually denies any significant pulmonary complaints. Chest x-ray on arrival shows a chronic right-sided pleural effusion and possible superimposed infiltrate. Findings appear chronic in my opinion. There is also an destructive left-sided rib lesion noted. CBC on arrival did not show any leukocytosis. WBC count 5.6, hemoglobin 9.4, hematocrit 29.7, platelets 219. BMP on arrival shows sodium 135, potassium 5.1, chloride 103, s nani bicarb 22, BUN 24, creatinine 0.65, glucose 125. Negative for occult blood. Procalcitonin level was mildly elevated at 0.14. Patient was empirically placed on Rocephin and azithromycin. Patient is afebrile. He is admitted to the general medical floor. The patient is seen today 03/13/2023 in follow-up on the regular medical floor. He is currently resting in bed. Awake and alert in no acute distress. He denies any significant pain. He is maintaining good O2 saturations in the 90s on room air. There was some concern regarding possible right lower lobe infiltrate. He's been on azithromycin which she completed. Currently on ceftriaxone. His pro calcitonin was 0.14. CT scan of the abdomen and pelvis revealed evidence of metastatic changes in the left femoral neck and right gr eater trochanter. There is increased enlargement of the para aortic and bilateral iliac chain lymph nodes with worsening metastasis. Redemonstrated large lobulated soft tissue mass in the region of the prostate gland measuring up to 7.7 cm. Likely likely representing metastatic disease. Objective - Vital Signs Vital signs: Vital Signs Temp 98.7 F 03/13/23 01:17 Pulse 86 03/13/23 08:22 Resp 18 03/13/23 01:17 BP 129/67 03/13/23 01:17 Pulse Ox 93 L 03/13/23 08:01 FiO2 Intake & Output 03/12/23 03/13/23 03/13/23 18:59 06:59 18:59 Intake Total 240 Output Total 1225 700 Balance -1225 -460 Weight 95.254 kg Intake: Oral 240 Output: Urine 1225 700 Other: Voiding Method Urinal Urinal # Voids 1 - Exam GENERAL EXAM: Alert, obese agitated 72-year-old male, on room air, fairly comfortable in no acute distress HEAD: Normocephalic and atraumatic EYES: Normal reaction of pupils, equal size. NOSE: Clear with pink turbinates. THROAT: No erythema or exudates. NECK: No masses, no JVD. CHEST: No chest wall deformity. LUNGS: Equal air entry with no crackles, wheeze, rhonchi or dullness. No conversational dyspnea. CVS: S1 and S2 normal with no audible murmur, regular rhythm. No extra heart sounds ABDOMEN: Obese abdomen, no hepatosplenomegaly, active bowel sounds, no guarding or rigidity. SPINE: No scoliosis or deformity SKIN: No rashes CENTRAL NERVOUS SYSTEM: Left lower extremity weakness. No other focal deficits. EXTREMITIES: There is no peripheral edema. No clubbing, or cyanosis. Peripheral pulses are intact. - Labs CBC & Chem 7: 03/11/23 08:21 03/11/23 08:21 Labs: Abnormal Lab Results - Last 24 Hours (Table) 03/11/23 Range/Units 12:00 Total PSA 5.7 H (<=4.0) ng/mL Assessment and Plan Assessment: Intractable left thigh and lower back pain. CT scan of the abdomen and pelvis revealed evidence of metastatic changes in the left femoral neck and right greater trochanter. There is increased enlargement of the para aortic and bilateral iliac chain lymph nodes with worsening metastasis. Redemonstrated large lobulated soft tissue mass in the region of the prostate gland measuring up to 7.7 cm. Likely likely representing metastatic disease. Recent diagnosis of prostate cancer with osseous metastasis. Initiated on Casodex History of squamous cell lung cancer with previous chemo/radiation, intolerant immunotherapy Chronic and recurrent right-sided pleural effusion, most recent thoracentesis done on 03/25/2022. Negative for cytologically malignant cells at that time. Chest x-ray this admission shows a right lower lobe effusion and possible superimposed infiltrate. There were destructive left sided rib lesions. Chronic obstructive pulmonary disease, stable Normocytic normochromic anemia, no obvious evidence of acute blood loss Coronary artery disease with previous stent placement Hyperlipidemia Benign essential hypertension Peripheral vascular occlusive disease. History DVT, anticoagulated on Eliquis Ex smoker Plan: The patient was seen and evaluated Computed tomography scan, labs and medications reviewed Procalcitonin 0.14 Discontinue ceftriaxone Initiate Augmentin 5 more days We will continue to follow This patient was independently by the nurse practitioner I have personally seen and examined the patient, performed the documentation and the assessment and plan as written. Number of minutes spent on the visit: 24.
[2023-03-13] MEDS: MAGNESIUM OXIDE 400 MG TAB PO SCH ×2 (09:33→21:08)
[2023-03-13] MEDS: FAMOTIDINE 20 MG TAB PO SCH ×2 (09:33→21:09)
[2023-03-13] MEDS: SENNOSIDES-DOCUSATE SODIUM 1 EACH TAB PO SCH ×2 (09:33→21:09)
[2023-03-13] MEDS: ASPIRIN 81 MG PO SCH (09:33)
[2023-03-13] MEDS: APIXABAN 5 MG TAB PO SCH ×2 (09:33→21:10)
[2023-03-13] MEDS: methocarbamoL 500 MG TAB PO SCH ×4 (09:34→21:09)
[2023-03-13] MEDS: BICALUTAMIDE 50 MG TAB PO SCH (09:34)
[2023-03-13] MEDS: THIAMINE 100 MG TAB PO SCH (09:34)
[2023-03-13] MEDS: carvediloL 12.5 MG TAB PO SCH ×2 (09:34→18:14)
[2023-03-13] MEDS: predniSONE 5 MG TAB PO SCH ×2 (09:34→21:10)
[2023-03-13] MEDS: AMOXIC-POT CLAV 875-125MG 1 EACH TAB PO SCH ×2 (09:34→21:08)
[2023-03-13] MEDS: PSYLLIUM HUSK 100% 6 GM PACKET PO SCH ×2 (09:37→21:18)
[2023-03-13] MEDS ORDERED: GLYCERIN ADULT SUPPOSITORY 1 EACH RECTAL STA (10:52)
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
--- NOTE | 2023-03-13 12:40 | P.GSCN ---
History of Present Illness Consult date: 03/13/23 Reason for Consult: Metastatic prostate cancer Requesting physician: Fer Sr History of present illness: The patient is a 72-year-old white male with a history of non-small cell carcinoma of the lung, treated with concurrent chemoradiation in . For the past month, he has experienced increased pain in the left lower extremity. CT scan showed a sclerotic lesion in the left femur. His PSA level was 8.6. He was transferred to [facility] and underwent core biopsy of the right iliac bone on 02/25/2023. This revealed metastatic prostate cancer. He has been seen here by radiation oncology. He has been started on bicalutamide, and will receive radiation therapy to the left femur. Arrangements are also be made for him to undergo a PSMA PET/CT scan for further evaluation. He does report some difficulty voiding. Review of Systems - Genitourinary Reports urinary hesitancy Past Medical History Past Medical History: Cancer, Chest Pain / Angina, Heart Failure, COPD, Hypertension, Myocardial Infarction ([place]), Skin Disorder Additional Past Medical History / Comment(s): chronic back pain, [place] spring 2015; pt has history of PVD with LLE cellulitis, states he had vascular surgery to improve healing, lung CA, had chemo and radiation immunotherapy 2020 Last Myocardial Infarction Date:: 2015 History of Any Multi-Drug Resistant Organisms: MRSA Year Discovered:: 06/25/17 MDRO Source:: LEFT LEG Past Surgical History: Heart Catheterization With Stent, Hernia Repair, Orthopedic Surgery Additional Past Surgical History / Comment(s): left femur ORIF 40 years ago and luisa shoulder surgery- rotator repair, left leg bypass; two stents placed in November 2019, hernia repair 2019 Past Anesthesia/Blood Transfusion Reactions: No Reported Reaction Date of Last Stent Placement:: November 2019 Past Psychological History: Anxiety Smoking Status: Former smoker Past Alcohol Use History: Heavy Additional Past Alcohol Use History / Comment(s): Drinks about three alcoholic drinks a day, used to be a heavy drinker Past Drug Use History: None Reported - Past Family History Father Additional Family Medical History / Comment(s): lung cancer Brother(s) Additional Family Medical History / Comment(s): lung cancer Medications and Allergies Home Medications Medication Instructions Recorded Confirmed Type Ondansetron [Zofran] 4 mg PO TID PRN 12/05/20 03/10/23 History carvediloL [Coreg*] 12.5 mg PO BID 12/05/20 03/10/23 History Ipratropium-Albuterol Nebulize 3 ml INHALATION RT-Q6H 07/11/21 03/10/23 History [Duoneb 0.5 mg-3 mg/3 ml Soln] Atorvastatin [Lipitor] 20 mg PO HS 03/24/22 03/10/23 History Famotidine 40 mg PO BID 02/08/23 03/10/23 History Furosemide [Lasix] 60 mg PO DAILY 02/08/23 03/10/23 History predniSONE 5 mg PO BID 02/08/23 03/10/23 History Apixaban [Eliquis] 5 mg PO BID 03/10/23 03/10/23 History Formoterol Fumarate [Perforomist] 20 mcg INHALATION RT-BID 03/10/23 03/10/23 History HYDROmorphone HCL [Dilaudid] 8 mg PO Q4H PRN 03/10/23 03/10/23 History Magnesium Oxide [Mag-Ox] 400 mg PO BID 03/10/23 03/10/23 History Methadone HCl 10 mg PO BID 03/10/23 03/10/23 History Naloxone HCl [Narcan] 4 mg NASAL DIRECTED PRN 03/10/23 03/10/23 History Sennosides [Senokot] 17.2 mg PO DAILY 03/10/23 03/10/23 History Sodium Chloride [[place]] 1 spray EA NOSTRIL Q4H PRN 03/10/23 03/10/23 History Thiamine [Vitamin B-1] 100 mg PO DAILY 03/10/23 03/10/23 History methocarbamoL [Robaxin] 1,000 mg PO QID 03/10/23 03/10/23 History polyethylene glycoL 3350 [Miralax] 17 gm PO DAILY PRN 03/10/23 03/10/23 History Allergies Allergy/AdvReac Type Severity Reaction Status Date / Time No Known Allergies Allergy Verified 03/10/23 16:26 Surgical - Exam Vital Signs Temp Pulse Resp BP Pulse Ox 99.3 F 73 18 100/60 91 L 03/10/23 15:17 03/10/23 15:17 03/10/23 15:17 03/10/23 15:17 03/10/23 15:17 - General well developed, well nourished, no distress - Respiratory normal respiratory effort - Abdomen Abdomen: soft, non tender, no guarding, no rigid, no rebound - Genitourinary normal penis with no external lesions, testicles non-tender - Psychiatric oriented to time, oriented to person, oriented to place, speech is normal, memory intact Results - Labs 03/11/23 08:21 03/11/23 08:21 Abnormal Lab Results - Last 24 Hours (Table) 03/11/23 Range/Units 12:00 Total PSA 5.7 H (<=4.0) ng/mL - Imaging CT scan - pelvis: report reviewed, image reviewed Assessment and Plan Assessment: I have reviewed the computed tomography scan of the pelvis performed yesterday, which shows sclerotic lesions of the greater trochanter bilaterally and bilateral pelvic and para-aortic adenopathy. The prostate is enlarged, heterogenous, and irregular in appearance. There appears to be moderate bladder distention. (1) Malignant neoplasm of prostate Current Visit: Yes Status: Acute Code(s): C61 - MALIGNANT NEOPLASM OF PROSTATE SNOMED Code(s): 245950191 (2) Secondary malignant neoplasm of bone Current Visit: Yes Status: Acute Code(s): C79.51 - SECONDARY MALIGNANT NEOPLASM OF BONE SNOMED Code(s): 16017998 (3) Poor urinary stream Current Visit: Yes Status: Acute Code(s): R39.12 - POOR URINARY STREAM SNOMED Code(s): 429637879 Plan: Agree with palliative radiation therapy, as well as the initiation of bicalutamide. The patient may be started on androgen deprivation therapy such as Lupron, now that he is receiving bicalutamide. Bladder scan will be performed to assess bladder emptying. The patient has been advised that he may require a Benjamin catheter. Time with Patient: Greater than 30
[2023-03-13] MEDS: ONDANSETRON 4 MG/2 ML VIAL IVP PRN (12:44)
--- NOTE | 2023-03-13 16:43 | P.PN ---
Subjective Progress Note Date: 03/13/23 Principal diagnosis: Intractable pain, new diagnosis of metastatic prostate cancer In f/u pain in the left leg persists, denies loss of sensation, IV pain med helps for him to get to commode and off but, that's it. Back pain is stable. Pt was going down for Rad simulation but, was brought back up because he felt he couldn't position because he needed to have a BM, he has not had one yet. He expectorated about 1 tsp of bright red blood-denies any before or since. No fever, chills, N,V. Objective - Vital Signs Vital signs: Vital Signs Temp 98.2 F 03/13/23 06:20 Pulse 86 03/13/23 08:22 Resp 12 03/13/23 06:20 BP 125/65 03/13/23 06:20 Pulse Ox 93 L 03/13/23 08:01 FiO2 Intake & Output 03/12/23 03/13/23 03/13/23 18:59 06:59 18:59 Intake Total 240 Output Total 1225 700 375 Balance -1225 -460 -375 Weight 95.254 kg Intake: Oral 240 Output: Urine 1225 700 375 Other: Voiding Method Urinal Urinal # Voids 1 - Constitutional General appearance: Present: average body habitus, mild distress, no acute distress - EENT Eyes: Present: anicteric sclerae, EOMI ENT: Present: hearing grossly normal - Respiratory Details: resp even and unlabored at rest, specimen container at bedside with about 1 tsp of bright red blood - Cardiovascular Details: skin warm and dry, radial pulse 2+ - Peripheral edema leg Peripheral Edema: right: None, left: Trace - Gastrointestinal General gastrointestinal: Present: soft - Integumentary Integumentary: Present: normal - Neurologic Neurologic: Present: CNII-XII intact - Musculoskeletal Musculoskeletal: Present: left sided weakness (lower extremity, 2/2 pain) - Psychiatric Psychiatric Comment(s): irritable Psychiatric: Present: A&O x's 3, intact judgment & insight - Labs CBC & Chem 7: 03/11/23 08:21 03/11/23 08:21 Labs: Abnormal Lab Results - Last 24 Hours (Table) 03/11/23 Range/Units 12:00 Total PSA 5.7 H (<=4.0) ng/mL - Imaging and Cardiology pelvis and femur x ray reports reviewed Assessment and Plan (1) Prostate cancer metastatic to bone Current Visit: Yes Status: Acute Priority: High Code(s): C61 - MALIGNANT NEOPLASM OF PROSTATE; C79.51 - SECONDARY MALIGNANT NEOPLASM OF BONE SNOMED Code(s): 71840247 (2) Intractable pain Current Visit: Yes Status: Acute Priority: High Code(s): R52 - PAIN, UNSPECIFIED SNOMED Code(s): 33981727 (3) Non-small cell cancer of right lung Current Visit: No Status: Chronic Priority: Low Code(s): C34.91 - MALIGNANT NEOPLASM OF UNSP PART OF RIGHT BRONCHUS OR LUNG SNOMED Code(s): 169536544 (4) Acute exacerbation of chronic obstructive pulmonary disease Current Visit: Yes Status: Acute Priority: High Code(s): J44.1 - CHRONIC OBSTRUCTIVE PULMONARY DISEASE W (ACUTE) EXACERBATION SNOMED Code(s): 024806546 Plan: Prostate cancer metastatic to the bone, Intractable pain -New diagnosis, from bone biopsy taken at [facility] -Casodex initiated for initial treatment of metastatic prostate cancer -Painful bone metastases in the left hip/femur. CT pelvis and femur reports reviewed, mention of possible pathological fracture on the right. Reviewed case with Radiation Oncologist who is planning on getting Orthopedics opinion. Discussed with PT/OT who have obvious concerns for wt bearing status-minimal until more is known. -Pain management has seen pt, pain meds will be adjusted by them. -Medications for prevention of narcotic-induced constipation, glycerine suppository today -Cont casodex - called office and reported pt xanax is not ordered, did get that ordered for him Follow up with Medical Oncologist will be scheduled once we know pt is going to be discharged and approx when he will be discharged from rehab. PSMA PET scan will be scheduled once patient is out of the hospital and has completed rehabi litation. After 30 days of casodex, further treatment options will be discussed. Non-small cell lung cancer -pt had hemoptysis x 1 today, cont to monitor -Pulmonary following, pt on abx -Follow-up, possible imaging once pt current complaints are managed
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
[2023-03-13] MEDS ORDERED: GABAPENTIN 300 MG CAP PO STA (17:36)
--- NOTE | 2023-03-13 17:43 | P.PN ---
Progress Note - Text Progress Note Date: 03/13/23 Received a note from the RN on 5th floor. Attending physician did not want to put in the orders that were recommended by the pain service yesterday 03/12/23, I received the call about this at 1746 on 03/13. I went ahead and placed the orders from the pain service for Dr. Sr regarding this patient. I d/c the 1mg dilaudid orders q3 and tramadol, I placed the order for 10mg oxycodone q6prn along with 300mg gabapentin once per day. Ben Pearl MD - Anesthesiology.
[2023-03-13] MEDS: MEGESTROL 400 MG/10 ML CUP PO SCH (18:13)
[2023-03-13] MEDS: DEXTROSE 5%-0.45% NACL 1,000 ML IV SCH ×2 (18:14→18:15)
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
[2023-03-13] MEDS: ALPRAZolam 0.5 MG TAB PO SCH (21:08)
[2023-03-13] MEDS: ATORVASTATIN 20 MG TAB PO SCH (21:09)
[2023-03-14] MEDS: IPRATROPIUM-ALBUTEROL 3 ML NEB INHALATION SCH ×4 (06:05→19:59)
[2023-03-14] MEDS: FORMOTEROL FUMARATE 20 MCG/2 ML NEBU INHALATION SCH (07:49)
[2023-03-14] MEDS: BUDESONIDE 1 MG/2 ML NEBU INHALATION SCH (07:49)
[2023-03-14] MEDS: DEXTROSE 5%-0.45% NACL 1,000 ML IV SCH ×2 (08:03→16:56)
[2023-03-14] MEDS: carvediloL 12.5 MG TAB PO SCH ×2 (08:03→17:56)
[2023-03-14] MEDS: ALPRAZolam 0.5 MG TAB PO SCH ×2 (08:03→21:08)
[2023-03-14] MEDS ORDERED: LEUPROLIDE ACET 7.5 MG SYRINGEKIT IM ONE (08:28)
--- NOTE | 2023-03-14 08:38 | P.PN ---
Subjective Progress Note Date: 03/14/23 I am seeing this patient in consultation today 03/12/2023 after the patient presented to the emergency room 2 days ago with intractable left thigh and back pain. Patient is a 72-year-old white male with past medical history significant for known squamous cell lung carcinoma diagnosed March 2020, s/p chemo and radiation, poor tolerance to immunotherapy, right-sided pleural effusion with previous thoracentesis, chronic obstructive pulmonary disease, congestive heart failure, hypertension, chronic back pain, peripheral vascular occlusive disease, coronary artery disease with previous stent, and is an ex smoker. Last month, the patient was admitted for left thigh pain. CT of the pelvis and left femur showed focal sclerosis in the region of the greater trochanter of the right hip with cortical discontinuity suspicious for metastatic lesion, there was also vague sclerosis involving the left iliac wing which could reflect a site of additional sclerotic metastatic lesion. There was also a significant enlargement of the prostate gland with glandular irregularity measuring 8.5 x 6.5 cm. The patient was transferred out, and reportedly had biopsies performed at [facility]. I do not have these reports, but the patient states that it was positive for metastatic prostate cancer. Patient presented to the emergency room 2 days ago with a primary complaint of intractable pain. The pain is predominantly on his left hip and lower back. He has had trouble walking. Patient has been reportedly started on Casodex for his prostate CA. His oncologist is Dr. Ignacio. Patient is currently sitting up in bed, on room air, in no acute distress. Patient actually denies any significant pulmonary complaints. Chest x-ray on arrival shows a chronic right-sided pleural effusion and possible superimposed infiltrate. Findings appear chronic in my opinion. There is also an destructive left-sided rib lesion noted. CBC on arrival did not show any leukocytosis. WBC count 5.6, hemoglobin 9.4, hematocrit 29.7, platelets 219. BMP on arrival shows sodium 135, potassium 5.1, chloride 103, s nani bicarb 22, BUN 24, creatinine 0.65, glucose 125. Negative for occult blood. Procalcitonin level was mildly elevated at 0.14. Patient was empirically placed on Rocephin and azithromycin. Patient is afebrile. He is admitted to the general medical floor. The patient is seen today 03/13/2023 in follow-up on the regular medical floor. He is currently resting in bed. Awake and alert in no acute distress. He denies any significant pain. He is maintaining good O2 saturations in the 90s on room air. There was some concern regarding possible right lower lobe infiltrate. He's been on azithromycin which she completed. Currently on ceftriaxone. His pro calcitonin was 0.14. CT scan of the abdomen and pelvis revealed evidence of metastatic changes in the left femoral neck and right gr eater trochanter. There is increased enlargement of the para aortic and bilateral iliac chain lymph nodes with worsening metastasis. Redemonstrated large lobulated soft tissue mass in the region of the prostate gland measuring up to 7.7 cm. Likely likely representing metastatic disease. The patient is seen today 03/14/2023 in follow-up on the regular medical floor. He is currently sitting up in bed. Awake and alert in no acute distress. He is maintaining O2 saturations in the 90s on room air. He is currently on Pulmicort and Perforomist inhalations, DuoNeb inhalations, antibiotics in the form of Augmentin. The plan is for palliative radiation to his left hip, pelvis and lower back. He has been seen by orthopedics as well. No surgical interventions planned. Objective - Vital Signs Vital signs: Vital Signs Temp 98 F 03/14/23 02:35 Pulse 88 03/14/23 08:15 Resp 18 03/14/23 02:35 BP 136/74 03/14/23 02:35 Pulse Ox 93 L 03/14/23 07:49 FiO2 Intake & Output 03/13/23 03/14/23 03/14/23 18:59 06:59 18:59 Intake Total 200 Output Total 375 700 Balance -175 -700 Intake: Oral 200 Output: Urine 375 700 Straight 700 Other: Voiding Method Urinal Urinal - Exam GENERAL EXAM: Alert, more calm and cooperative 72-year-old male, on room air, comfortable in no acute distress HEAD: Normocephalic and atraumatic EYES: Normal reaction of pupils, equal size. NOSE: Clear with pink turbinates. THROAT: No erythema or exudates. NECK: No masses, no JVD. CHEST: No chest wall deformity. LUNGS: Equal air entry with no crackles, wheeze, rhonchi or dullness. No conversational dyspnea. CVS: S1 and S2 normal with no audible murmur, regular rhythm. No extra heart sounds ABDOMEN: Obese abdomen, no hepatosplenomegaly, active bowel sounds, no guarding or rigidity. SPINE: No scoliosis or deformity SKIN: No rashes CENTRAL NERVOUS SYSTEM: Left lower extremity weakness. No other focal deficits. EXTREMITIES: There is no peripheral edema. No clubbing, or cyanosis. Peripheral pulses are intact. - Labs CBC & Chem 7: 03/11/23 08:21 03/11/23 08:21 Assessment and Plan Assessment: Intractable left thigh and lower back pain. CT scan of the abdomen and pelvis revealed evidence of metastatic changes in the left femoral neck and right greater trochanter. There is increased enlargement of the para aortic and bilateral iliac chain lymph nodes with worsening metastasis. Redemonstrated large lobulated soft tissue mass in the region of the prostate gland measuring up to 7.7 cm. Likely representing metastatic disease. The plan plan is to start palliative radiation to the left hip, pelvis and lower back this week Recent diagnosis of prostate cancer with osseous metastasis. Initiated on Casodex History of squamous cell lung cancer with previous chemo/radiation, intolerant immunotherapy Chronic and recurrent right-sided pleural effusion, most recent thoracentesis done on 03/25/2022. Negative for cytologically malignant cells at that time. Chest x-ray this admission shows a right lower lobe effusion and possible superi mposed infiltrate. There were destructive left sided rib lesions. Chronic obstructive pulmonary disease, stable Normocytic normochromic anemia, no obvious evidence of acute blood loss Coronary artery disease with previous stent placement Hyperlipidemia Benign essential hypertension Peripheral vascular occlusive disease. History DVT, anticoagulated on Eliquis Ex smoker Plan: The patient was seen and evaluated Medications reviewed Discontinue Pulmicort and Perforomist inhalations Add Symbicort inhalations Continue with Augmentin 4 more days Plan is to start palliative radiation to the left hip, pelvis and lower back We will continue to follow This patient was independently by the nurse practitioner I have personally seen and examined the patient, performed the documentation and the assessment and plan as written. Number of minutes spent on the visit: 22.
[2023-03-14] MEDS ORDERED: ZOLEDRONIC ACID 4 MG in SODIUM CHLORIDE 0.9% 100 ML IV ONE (09:45)
[2023-03-14] MEDS: MAGNESIUM OXIDE 400 MG TAB PO SCH ×2 (10:24→21:14)
[2023-03-14] MEDS: PSYLLIUM HUSK 100% 6 GM PACKET PO SCH ×2 (10:24→21:09)
[2023-03-14] MEDS: methocarbamoL 500 MG TAB PO SCH ×4 (10:24→21:08)
[2023-03-14] MEDS: THIAMINE 100 MG TAB PO SCH (10:24)
[2023-03-14] MEDS: APIXABAN 5 MG TAB PO SCH ×2 (10:24→21:08)
[2023-03-14] MEDS: MEGESTROL 400 MG/10 ML CUP PO SCH (10:25)
[2023-03-14] MEDS: predniSONE 5 MG TAB PO SCH ×2 (10:25→21:08)
[2023-03-14] MEDS: AMOXIC-POT CLAV 875-125MG 1 EACH TAB PO SCH ×2 (10:25→21:08)
[2023-03-14] MEDS: FAMOTIDINE 20 MG TAB PO SCH ×2 (10:25→21:09)
[2023-03-14] MEDS: ASPIRIN 81 MG PO SCH (10:25)
[2023-03-14] MEDS: BICALUTAMIDE 50 MG TAB PO SCH (10:25)
[2023-03-14] MEDS: SENNOSIDES-DOCUSATE SODIUM 1 EACH TAB PO SCH ×2 (10:25→21:08)
[2023-03-14] MEDS: SYMBICORT 160-4.5 MCG INHALER INHALATION SCH ×2 (11:47→19:59)
[2023-03-14] MEDS: ONDANSETRON 4 MG/2 ML VIAL IVP PRN (13:42)
--- NOTE | 2023-03-14 14:36 | P.PN ---
Subjective Progress Note Date: 03/14/23 Principal diagnosis: Intractable pain, new diagnosis of metastatic prostate cancer In f/u patient is still rating his pain and about a 7-1/2 out of 10 in the left leg but, feels that pain is less labile. He has started radiation. He received a dose of Zometa today for bone mets. He continues on Casodex without complaints. He did have a small bowel movement yesterday. His any fevers, hemoptysis, nausea or vomiting. Objective - Vital Signs Vital signs: Vital Signs Temp 97.3 F L 03/14/23 12:59 Pulse 90 03/14/23 12:59 Resp 15 03/14/23 12:59 BP 151/68 03/14/23 12:59 Pulse Ox 95 03/14/23 12:59 FiO2 Intake & Output 03/13/23 03/14/23 03/14/23 18:59 06:59 18:59 Intake Total 200 Output Total 375 2224 Balance -175 -2224 Intake: Oral 200 Output: Urine 375 1225 Straight 700 Post Void Residual 999 Other: Voiding Method Urinal Urinal # Voids 2 - Constitutional General appearance: Present: average body habitus, cooperative, no acute distress - EENT Eyes: Present: anicteric sclerae, EOMI ENT: Present: hearing grossly normal - Respiratory Details: Respirations even and unlabored at rest - Cardiovascular Details: Skin warm and dry to the touch - Integumentary Integumentary Comment(s): Significant bruising on the bilateral upper extremities, right greater than left - Neurologic Neurologic: Present: CNII-XII intact - Psychiatric Psychiatric: Present: A&O x's 3, appropriate affect, intact judgment & insight - Labs CBC & Chem 7: 03/11/23 08:21 03/11/23 08:21 Assessment and Plan (1) Prostate cancer metastatic to bone Current Visit: Yes Status: Acute Priority: High Code(s): C61 - MALIGNANT NEOPLASM OF PROSTATE; C79.51 - SECONDARY MALIGNANT NEOPLASM OF BONE SNOMED Code(s): 07663029 (2) Intractable pain Current Visit: Yes Status: Acute Priority: High Code(s): R52 - PAIN, UNSPECIFIED SNOMED Code(s): 69125976 (3) Non-small cell cancer of right lung Current Visit: No Status: Chronic Priority: Low Code(s): C34.91 - MALIGNANT NEOPLASM OF UNSP PART OF RIGHT BRONCHUS OR LUNG SNOMED Code(s): 132684617 (4) Acute exacerbation of chronic obstructive pulmonary disease Current Visit: Yes Status: Acute Priority: High Code(s): J44.1 - CHRONIC OBSTRUCTIVE PULMONARY DISEASE W (ACUTE) EXACERBATION SNOMED Code(s): 435001432 Plan: Prostate cancer metastatic to the bone, Intractable pain -New diagnosis, from bone biopsy taken at [facility] -Casodex initiated for initial treatment of metastatic prostate cancer -Painful bone metastases in the left hip/femur. CT pelvis and femur reports reviewed, mention of possible pathological fracture on the right. Pending orthopedic opinion for recommendations. -Pain management has seen pt, pain meds will be adjusted by them. -Medications for prevention of narcotic-induced constipation, glycerine suppository yesterday, patient has had a small bowel movement -Cont casodex -Resumed patient's Xanax, he does seem a bit more calm today. Follow up with Medical Oncologist will be scheduled once we know pt is going to be discharged and approx when he will be discharged from rehab. PSMA PET scan will be scheduled once patient is out of the hospital and has completed re habilitation. After 30 days of casodex, further treatment options will be discussed. Non-small cell lung cancer -pt had hemoptysis x 1, none since -Pulmonary following, pt on abx -Follow-up, possible imaging once pt current complaints are managed
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
[2023-03-14] MEDS: HYDROmorphone 2 MG TAB PO PRN (15:56)
[2023-03-14] MEDS: HYDROmorphone 0.5 MG/0.5 ML SYRINGE IVP PRN ×2 (17:38→21:09)
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
[2023-03-14] MEDS: ATORVASTATIN 20 MG TAB PO SCH (21:08)
--- NOTE | 2023-03-14 21:46 | P.PN ---
Subjective Progress Note Date: 03/14/23 Principal diagnosis: Metastatic prostate cancer, urinary retention The patient continues to receive bicalutamide for his prostate cancer. He also received Zometa today, as well as palliative radiation therapy. He was straight catheterized with return of 700 mL of urine. Subsequently, a Benjamin catheter was placed with return of 1400 mL of urine. He feels better with the catheter in place. Objective - Vital Signs Vital signs: Vital Signs Temp 97.3 F L 03/14/23 12:59 Pulse 88 03/14/23 20:15 Resp 15 03/14/23 12:59 BP 151/68 03/14/23 12:59 Pulse Ox 95 03/14/23 12:59 FiO2 Intake & Output 03/14/23 03/14/23 03/15/23 06:59 18:59 06:59 Output Total 4549 Balance -4549 Output: Urine 3550 Straight 700 Post Void Residual 999 Other: Voiding Method Urinal # Voids 2 - Constitutional General appearance: Present: average body habitus, no acute distress - Psychiatric Psychiatric: Present: A&O x's 3 - Labs CBC & Chem 7: 03/11/23 08:21 03/11/23 08:21 Assessment and Plan Assessment: Patient has been confirmed to be in urinary retention secondary to locally a dvanced and metastatic prostate cancer. (1) Malignant neoplasm of prostate Current Visit: Yes Status: Acute Code(s): C61 - MALIGNANT NEOPLASM OF PROSTATE SNOMED Code(s): 803620953 (2) Secondary malignant neoplasm of bone Current Visit: Yes Status: Acute Code(s): C79.51 - SECONDARY MALIGNANT NEOPLASM OF BONE SNOMED Code(s): 64064294 (3) Poor urinary stream Current Visit: Yes Status: Acute Code(s): R39.12 - POOR URINARY STREAM SNOMED Code(s): 365062421 Plan: Agree with palliative radiation therapy, as well as the initiation of bicalutamide. The patient will likely be treated with androgen deprivation therapy and chemotherapy. I am hopeful that this will result in prostatic shrinkage so that Mr. Matias will regain the ability to void. For now, his urinary retention is best managed with an indwelling Benjamin catheter. He will be discharged home with a catheter and follow up with me in several weeks. Please notify me if we can be of any further assistance during this hospitalization.
[2023-03-15] MEDS: ONDANSETRON 4 MG/2 ML VIAL IVP PRN ×2 (01:15→17:24)
[2023-03-15] MEDS: IPRATROPIUM-ALBUTEROL 3 ML NEB INHALATION SCH ×4 (02:12→20:09)
[2023-03-15] MEDS: HYDROmorphone 0.5 MG/0.5 ML SYRINGE IVP PRN ×3 (02:47→12:33)
[2023-03-15] MEDS: DEXTROSE 5%-0.45% NACL 1,000 ML IV SCH ×3 (02:47→20:51)
[2023-03-15] MEDS: SYMBICORT 160-4.5 MCG INHALER INHALATION SCH ×2 (07:50→20:09)
[2023-03-15] MEDS: SENNOSIDES-DOCUSATE SODIUM 1 EACH TAB PO SCH ×2 (08:33→20:46)
[2023-03-15] MEDS: methocarbamoL 500 MG TAB PO SCH ×4 (08:33→20:46)
[2023-03-15] MEDS: AMOXIC-POT CLAV 875-125MG 1 EACH TAB PO SCH ×2 (08:33→20:46)
[2023-03-15] MEDS: carvediloL 12.5 MG TAB PO SCH ×2 (08:34→17:20)
[2023-03-15] MEDS: predniSONE 5 MG TAB PO SCH ×2 (08:34→20:46)
[2023-03-15] MEDS: BICALUTAMIDE 50 MG TAB PO SCH (08:34)
[2023-03-15] MEDS: APIXABAN 5 MG TAB PO SCH ×2 (08:34→20:46)
[2023-03-15] MEDS: MAGNESIUM OXIDE 400 MG TAB PO SCH ×2 (08:34→20:46)
[2023-03-15] MEDS: ALPRAZolam 0.5 MG TAB PO SCH ×2 (08:34→20:46)
[2023-03-15] MEDS: MEGESTROL 400 MG/10 ML CUP PO SCH (08:34)
[2023-03-15] MEDS: ASPIRIN 81 MG PO SCH (08:34)
[2023-03-15] MEDS: THIAMINE 100 MG TAB PO SCH (08:34)
[2023-03-15] MEDS: FAMOTIDINE 20 MG TAB PO SCH ×2 (08:34→20:46)
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
[2023-03-15] MEDS ORDERED: HYDROmorphone 0.5 MG/0.5 ML SYRINGE IVP STA (14:01)
[2023-03-15] MEDS: PSYLLIUM HUSK 100% 6 GM PACKET PO SCH ×3 (14:04→20:50)
--- NOTE | 2023-03-15 14:46 | CDI ---
Documentation Clarification Form Date: 03/14/2023 08:23:00 PM From: Columba Mujica RN, CCDS Admit Date: 03/10/2023 03:39:00 PM Patient Name: Joe Matias Visit Number: [id number] Discharge Date: ATTENTION: The Clinical Documentation Specialists (CDI) and [facility] Coding Staff appreciate your assistance in clarifying documentation. Please respond to the clarification below the line at the bottom and electronically sign. The CDI & [facility] Coding staff will review the response and follow-up if needed. Please note: Queries are made part of the Legal Health Record. If you have any questions, please contact the author of this message via ITS. Dr. Fer Sr Your patient has the documented diagnosis of unspecified chronic CHF in the H/P and subsequent progress notes. Additional information regarding the type of CHF is requested. History/Risk Factors: Cancer, Chest Pain / Angina, Heart Failure, COPD, Hypertension, Myocardial Infarction (RI), Skin Disorder Clinical Indicators: 72-year-old male present with intractable pain. CXR: Right lower lobe infiltrate and small effusion. Destructive left-sided rib lesions 03/10 VS/Pulse OX: 100/60 73/18 99.3 91 % RA 02/09 Echocardiogram Results: LVEF is estimated at 45-50%. Mildly reduced LVEF globally. Severe left atrial dilation. Mild MR. No pericardial effusion Treatment: Lipitor 20MG PO HS Coreg 12.5 MG PO BID In your professional opinion, can you please clarify the type of CHF if known? [ ] Chronic Systolic Heart Failure (reduced EF) [ + ] Chronic Diastolic Heart Failure (preserved EF) [ ] Chronic Systolic & Diastolic Heart Failure [ ] Other, please specify [ ] Unable to determine (Template Last Revised: June 2020) MTDD
--- NOTE | 2023-03-15 15:53 | P.PN ---
Subjective Progress Note Date: 03/15/23 I am seeing this patient in consultation today 03/12/2023 after the patient presented to the emergency room 2 days ago with intractable left thigh and back pain. Patient is a 72-year-old white male with past medical history significant for known squamous cell lung carcinoma diagnosed March 2020, s/p chemo and radiation, poor tolerance to immunotherapy, right-sided pleural effusion with previous thoracentesis, chronic obstructive pulmonary disease, congestive heart failure, hypertension, chronic back pain, peripheral vascular occlusive disease, coronary artery disease with previous stent, and is an ex smoker. Last month, the patient was admitted for left thigh pain. CT of the pelvis and left femur showed focal sclerosis in the region of the greater trochanter of the right hip with cortical discontinuity suspicious for metastatic lesion, there was also vague sclerosis involving the left iliac wing which could reflect a site of additional sclerotic metastatic lesion. There was also a significant enlargement of the prostate gland with glandular irregularity measuring 8.5 x 6.5 cm. The patient was transferred out, and reportedly had biopsies performed at [facility]. I do not have these reports, but the patient states that it was positive for metastatic prostate cancer. Patient presented to the emergency room 2 days ago with a primary complaint of intractable pain. The pain is predominantly on his left hip and lower back. He has had trouble walking. Patient has been reportedly started on Casodex for his prostate CA. His oncologist is Dr. Ignacio. Patient is currently sitting up in bed, on room air, in no acute distress. Patient actually denies any significant pulmonary complaints. Chest x-ray on arrival shows a chronic right-sided pleural effusion and possible superimposed infiltrate. Findings appear chronic in my opinion. There is also an destructive left-sided rib lesion noted. CBC on arrival did not show any leukocytosis. WBC count 5.6, hemoglobin 9.4, hematocrit 29.7, platelets 219. BMP on arrival shows sodium 135, potassium 5.1, chloride 103, s nani bicarb 22, BUN 24, creatinine 0.65, glucose 125. Negative for occult blood. Procalcitonin level was mildly elevated at 0.14. Patient was empirically placed on Rocephin and azithromycin. Patient is afebrile. He is admitted to the general medical floor. The patient is seen today 03/13/2023 in follow-up on the regular medical floor. He is currently resting in bed. Awake and alert in no acute distress. He denies any significant pain. He is maintaining good O2 saturations in the 90s on room air. There was some concern regarding possible right lower lobe infiltrate. He's been on azithromycin which she completed. Currently on ceftriaxone. His pro calcitonin was 0.14. CT scan of the abdomen and pelvis revealed evidence of metastatic changes in the left femoral neck and right gr eater trochanter. There is increased enlargement of the para aortic and bilateral iliac chain lymph nodes with worsening metastasis. Redemonstrated large lobulated soft tissue mass in the region of the prostate gland measuring up to 7.7 cm. Likely likely representing metastatic disease. The patient is seen today 03/14/2023 in follow-up on the regular medical floor. He is currently sitting up in bed. Awake and alert in no acute distress. He is maintaining O2 saturations in the 90s on room air. He is currently on Pulmicort and Perforomist inhalations, DuoNeb inhalations, antibiotics in the form of Augmentin. The plan is for palliative radiation to his left hip, pelvis and lower back. He has been seen by orthopedics as well. No surgical interventions planned. The patient is seen today 03/15/2023 in follow-up on the regular medical floor. He is awake and alert in no acute distress. Resting fairly comfortably in bed. If he continues to maintain good O2 saturations in the 90s on room air. He is continued on DuoNeb inhalations, Pulmicort, prednisone taper. Anticoagulated wi th Eliquis. Antibiotics in the form of Augmentin. Objective - Vital Signs Vital signs: Vital Signs Temp 98.4 F 03/15/23 14:00 Pulse 80 03/15/23 15:16 Resp 24 03/15/23 14:00 BP 143/76 03/15/23 14:00 Pulse Ox 92 L 03/15/23 14:00 FiO2 Intake & Output 03/14/23 03/15/23 03/15/23 18:59 06:59 18:59 Output Total 4549 1800 700 Balance -4549 -1800 -700 Weight 95.254 kg Output: Urine 3550 1800 700 Straight 700 Post Void Residual 999 Other: Voiding Method Urinal # Voids 2 - Exam GENERAL EXAM: Alert, calm and cooperative 72-year-old male, comfortable in no acute distress HEAD: Normocephalic and atraumatic EYES: Normal reaction of pupils, equal size. NOSE: Clear with pink turbinates. THROAT: No erythema or exudates. NECK: No masses, no JVD. CHEST: No chest wall deformity. LUNGS: Equal air entry with no crackles, wheeze, rhonchi or dullness. No conversational dyspnea. CVS: S1 and S2 normal with no audible murmur, regular rhythm. No extra heart sounds ABDOMEN: Obese abdomen, no hepatosplenomegaly, active bowel sounds, no guarding or rigidity. SPINE: No scoliosis or deformity SKIN: No rashes CENTRAL NERVOUS SYSTEM: Left lower extremity weakness. No other focal deficits. EXTREMITIES: There is no peripheral edema. No clubbing, or cyanosis. Peripheral pulses are intact. - Labs CBC & Chem 7: 03/11/23 08:21 03/11/23 08:21 Assessment and Plan Assessment: Intractable left thigh and lower back pain. CT scan of the abdomen and pelvis revealed evidence of metastatic changes in the left femoral neck and right greater trochanter. There is increased enlargement of the para aortic and bilateral iliac chain lymph nodes with worsening metastasis. Redemonstrated large lobulated soft tissue mass in the region of the prostate gland measuring up to 7.7 cm. Likely representing metastatic disease. The plan plan is to start palliative radiation to the left hip, pelvis and lower back this week Recent diagnosis of prostate cancer with osseous metastasis. Initiated on Casodex History of squamous cell lung cancer with previous chemo/radiation, intolerant immunotherapy Chronic and recurrent right-sided pleural effusion, most recent thoracentesis done on 03/25/2022. Negative for cytologically malignant cells at that time. Chest x-ray this admission shows a right lower lobe effusion and possible superimposed infiltrate. There were destructive left sided rib lesions. Chronic obstructive pulmonary disease, stable Normocytic normochromic anemia, no obvious evidence of acute blood loss Coronary artery disease with previous stent placement Hyperlipidemia Benign essential hypertension Peripheral vascular occlusive disease. History DVT, anticoagulated on Eliquis Ex smoker Plan: The patient was seen and evaluated Medications reviewed Continue Symbicort and DuoNeb inhalations Continue with Augmentin 3 more days Plan is to start palliative radiation to the left hip, pelvis and lower back The patient needs to remain in the hospital for his treatments for 10 days This patient was independently by the nurse practitioner I have personally seen and examined the patient, performed the documentation and the assessment and plan as written. Number of minutes spent on the visit: 20.
[2023-03-15] MEDS: ATORVASTATIN 20 MG TAB PO SCH (20:46)
[2023-03-15] MEDS: HYDROmorphone 2 MG TAB PO PRN (20:48)
[2023-03-16] MEDS: HYDROmorphone 0.5 MG/0.5 ML SYRINGE IVP PRN ×2 (01:05→19:05)
[2023-03-16] MEDS: IPRATROPIUM-ALBUTEROL 3 ML NEB INHALATION SCH ×4 (02:56→19:40)
[2023-03-16] MEDS: HYDROmorphone 2 MG TAB PO PRN ×3 (05:37→20:26)
[2023-03-16] MEDS: ONDANSETRON 4 MG/2 ML VIAL IVP PRN ×2 (05:41→13:55)
[2023-03-16] MEDS: DEXTROSE 5%-0.45% NACL 1,000 ML IV SCH (05:45)
[2023-03-16] MEDS: PSYLLIUM HUSK 100% 6 GM PACKET PO SCH ×2 (07:44→20:25)
[2023-03-16] MEDS: methocarbamoL 500 MG TAB PO SCH ×4 (07:44→22:21)
[2023-03-16] MEDS: BICALUTAMIDE 50 MG TAB PO SCH (07:44)
[2023-03-16] MEDS: SENNOSIDES-DOCUSATE SODIUM 1 EACH TAB PO SCH ×2 (07:45→20:26)
[2023-03-16] MEDS: THIAMINE 100 MG TAB PO SCH (07:45)
[2023-03-16] MEDS: AMOXIC-POT CLAV 875-125MG 1 EACH TAB PO SCH ×2 (07:46→20:27)
[2023-03-16] MEDS: MEGESTROL 400 MG/10 ML CUP PO SCH (07:46)
[2023-03-16] MEDS: ASPIRIN 81 MG PO SCH (07:46)
[2023-03-16] MEDS: FAMOTIDINE 20 MG TAB PO SCH ×2 (07:46→20:26)
[2023-03-16] MEDS: MAGNESIUM OXIDE 400 MG TAB PO SCH ×2 (07:46→20:27)
[2023-03-16] MEDS: carvediloL 12.5 MG TAB PO SCH ×2 (07:46→17:58)
[2023-03-16] MEDS: APIXABAN 5 MG TAB PO SCH ×2 (07:46→20:26)
[2023-03-16] MEDS: predniSONE 5 MG TAB PO SCH ×2 (07:47→20:27)
[2023-03-16 08:08] LABS: Glucose,Whole Blood 116 mg/dL (70-110)
[2023-03-16] MEDS: SYMBICORT 160-4.5 MCG INHALER INHALATION SCH ×2 (08:18→19:40)
[2023-03-16 08:33] LABS: Anisocytosis Slight; Basophils % (A) 0 %; Eosinophils # (A) 0.1 k/uL (0-0.7); Eosinophils % (A) 2 %; HCT 28.2 % (39.0-53.0); HGB 8.9 gm/dL (13.0-17.5); Hypochromasia Moderate; Lymphocytes # (A) 0.5 k/uL (1.0-4.8); Lymphocytes % (A) 9 %; MCH 28.6 pg (25.0-35.0); MCHC 31.7 g/dL (31.0-37.0); MCV 90.1 fL (80.0-100.0); Mean Platelet Volume 7.5; Monocytes # (A) 0.3 k/uL (0-1.0); Monocytes % (A) 6 %; Neutrophils # (A) 4.2 k/uL (1.3-7.7); Neutrophils % (A) 81 %; Platelet Count 245 k/uL (150-450); RBC 3.12 m/uL (4.30-5.90); RDW 16.8 % (11.5-15.5); WBC 5.2 k/uL (3.8-10.6)
[2023-03-16] MEDS: ALPRAZolam 0.5 MG TAB PO SCH ×2 (08:40→20:27)
[2023-03-16 08:43] LABS: ALT 13 U/L (4-49); AST 26 U/L (17-59); African American GFR (CKD) >90 (>60 ml/min/1.73 sqM); Albumin 2.9 g/dL (3.5-5.0); Albumin/Globulin Ratio 1.1; Alkaline Phosphatase 499 U/L (38-126); Anion Gap 9 mmol/L; Blood Urea Nitrogen 12 mg/dL (9-20); Calcium 7.7 mg/dL (8.4-10.2); Carbon Dioxide 20 mmol/L (22-30); Chloride 110 mmol/L (98-107); Globulin 2.6 g/dL; Glucose 105 mg/dL (74-99); Non-African American GFR(CKD) >90 (>60 ml/min/1.73 sqM); Potassium 5.3 mmol/L (3.5-5.1); Sodium 139 mmol/L (137-145); Total Bilirubin 0.4 mg/dL (0.2-1.3); Total Protein 5.5 g/dL (6.3-8.2)
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
[2023-03-16] MEDS: ATORVASTATIN 20 MG TAB PO SCH (20:26)
[2023-03-17] MEDS: HYDROmorphone 2 MG TAB PO PRN ×3 (01:48→19:46)
[2023-03-17] MEDS: IPRATROPIUM-ALBUTEROL 3 ML NEB INHALATION SCH ×4 (01:58→19:42)
[2023-03-17] MEDS: SYMBICORT 160-4.5 MCG INHALER INHALATION SCH ×2 (07:51→19:42)
[2023-03-17] MEDS: ALPRAZolam 0.5 MG TAB PO SCH ×2 (08:56→21:00)
[2023-03-17] MEDS: ASPIRIN 81 MG PO SCH (08:56)
[2023-03-17] MEDS: FAMOTIDINE 20 MG TAB PO SCH ×2 (08:56→21:00)
[2023-03-17] MEDS: THIAMINE 100 MG TAB PO SCH (08:56)
[2023-03-17] MEDS: AMOXIC-POT CLAV 875-125MG 1 EACH TAB PO SCH ×2 (08:56→21:00)
[2023-03-17] MEDS: SENNOSIDES-DOCUSATE SODIUM 1 EACH TAB PO SCH ×2 (08:56→21:01)
[2023-03-17] MEDS: PSYLLIUM HUSK 100% 6 GM PACKET PO SCH ×2 (08:56→21:01)
[2023-03-17] MEDS: MAGNESIUM OXIDE 400 MG TAB PO SCH ×2 (08:56→21:00)
[2023-03-17] MEDS: APIXABAN 5 MG TAB PO SCH ×2 (08:57→21:00)
[2023-03-17] MEDS: BICALUTAMIDE 50 MG TAB PO SCH (08:57)
[2023-03-17] MEDS: carvediloL 12.5 MG TAB PO SCH ×2 (08:57→17:10)
[2023-03-17] MEDS: MEGESTROL 400 MG/10 ML CUP PO SCH (08:57)
[2023-03-17] MEDS: methocarbamoL 500 MG TAB PO SCH ×4 (08:58→21:02)
[2023-03-17] MEDS: predniSONE 5 MG TAB PO SCH ×2 (08:58→21:01)
[2023-03-17] MEDS: HYDROmorphone 0.5 MG/0.5 ML SYRINGE IVP PRN ×2 (13:19→23:21)
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
[2023-03-17] MEDS: ATORVASTATIN 20 MG TAB PO SCH (21:00)
[2023-03-18] MEDS: IPRATROPIUM-ALBUTEROL 3 ML NEB INHALATION SCH ×4 (01:57→18:32)
[2023-03-18] MEDS: HYDROmorphone 0.5 MG/0.5 ML SYRINGE IVP PRN ×5 (02:27→23:37)
[2023-03-18 06:19] LABS: African American GFR (CKD) >90 (>60 ml/min/1.73 sqM); Anion Gap 9 mmol/L; Blood Urea Nitrogen 17 mg/dL (9-20); Calcium 7.8 mg/dL (8.4-10.2); Carbon Dioxide 22 mmol/L (22-30); Chloride 108 mmol/L (98-107); Glucose 122 mg/dL (74-99); Non-African American GFR(CKD) >90 (>60 ml/min/1.73 sqM); Potassium 5.2 mmol/L (3.5-5.1); Sodium 139 mmol/L (137-145)
[2023-03-18] MEDS: SYMBICORT 160-4.5 MCG INHALER INHALATION SCH ×2 (07:27→18:32)
[2023-03-18] MEDS: predniSONE 5 MG TAB PO SCH ×2 (09:06→21:31)
[2023-03-18] MEDS: SENNOSIDES-DOCUSATE SODIUM 1 EACH TAB PO SCH ×2 (09:06→21:30)
[2023-03-18] MEDS: MEGESTROL 400 MG/10 ML CUP PO SCH (09:06)
[2023-03-18] MEDS: carvediloL 12.5 MG TAB PO SCH ×2 (09:06→17:38)
[2023-03-18] MEDS: THIAMINE 100 MG TAB PO SCH (09:06)
[2023-03-18] MEDS: ALPRAZolam 0.5 MG TAB PO SCH ×2 (09:07→21:30)
[2023-03-18] MEDS: APIXABAN 5 MG TAB PO SCH ×2 (09:07→21:30)
[2023-03-18] MEDS: MAGNESIUM OXIDE 400 MG TAB PO SCH ×2 (09:07→21:30)
[2023-03-18] MEDS: ASPIRIN 81 MG PO SCH (09:07)
[2023-03-18] MEDS: BICALUTAMIDE 50 MG TAB PO SCH (09:07)
[2023-03-18] MEDS: FAMOTIDINE 20 MG TAB PO SCH ×2 (09:07→21:30)
[2023-03-18] MEDS: AMOXIC-POT CLAV 875-125MG 1 EACH TAB PO SCH (09:08)
[2023-03-18] MEDS: PSYLLIUM HUSK 100% 6 GM PACKET PO SCH ×2 (09:08→21:31)
[2023-03-18] MEDS: methocarbamoL 500 MG TAB PO SCH ×4 (09:08→21:31)
--- NOTE | 2023-03-18 15:33 | P.PN ---
Subjective Progress Note Date: 03/18/23 I am seeing this patient in consultation today 03/12/2023 after the patient presented to the emergency room 2 days ago with intractable left thigh and back pain. Patient is a 72-year-old white male with past medical history significant for known squamous cell lung carcinoma diagnosed March 2020, s/p chemo and radiation, poor tolerance to immunotherapy, right-sided pleural effusion with previous thoracentesis, chronic obstructive pulmonary disease, congestive heart failure, hypertension, chronic back pain, peripheral vascular occlusive disease, coronary artery disease with previous stent, and is an ex smoker. Last month, the patient was admitted for left thigh pain. CT of the pelvis and left femur showed focal sclerosis in the region of the greater trochanter of the right hip with cortical discontinuity suspicious for metastatic lesion, there was also vague sclerosis involving the left iliac wing which could reflect a site of additional sclerotic metastatic lesion. There was also a significant enlargement of the prostate gland with glandular irregularity measuring 8.5 x 6.5 cm. [facility] had biopsies performed at [facility]. I do not have these reports, but the patient states that it was positive for metastatic prostate cancer. Patient presented to the emergency room 2 days ago with a primary complaint of intractable pain. The pain is predominantly on his left hip and lower back. He has had trouble walking. Patient has been reportedly started on Casodex for his prostate CA. His oncologist is Dr. Ignacio. Patient is currently sitting up in bed, on room air, in no acute distress. Patient actually denies any significant pulmonary complaints. Chest x-ray on arrival shows a chronic right-sided pleural effusion and possible superimposed infiltrate. Findings appear chronic in my opinion. There is also an destructive left-sided rib lesion noted. CBC on arrival did not show any leukocytosis. WBC count 5.6, hemoglobin 9.4, hematocrit 29.7, platelets 219. BMP on arrival shows sodium 135, potassium 5.1, chloride 103, serum bicarb 22, BUN 24, creatinine 0.65, glucose 125. Negative for occult blood. Procalcitonin level was mildly elevated at 0.14. Patient was empirically placed on Rocephin and azithromycin. Patient is afebrile. He is admitted to the general medical floor. The patient is seen today 03/13/2023 in follow-up on the regular medical floor. He is currently resting in bed. Awake and alert in no acute distress. He denies any significant pain. He is maintaining good O2 saturations in the 90s o n room air. There was some concern regarding possible right lower lobe infiltrate. He's been on azithromycin which she completed. Currently on ceftriaxone. His pro calcitonin was 0.14. CT scan of the abdomen and pelvis revealed evidence of metastatic changes in the left femoral neck and right g reater trochanter. There is increased enlargement of the para aortic and bilateral iliac chain lymph nodes with worsening metastasis. Redemonstrated large lobulated soft tissue mass in the region of the prostate gland measuring up to 7.7 cm. Likely likely representing metastatic disease. The patient is seen today 03/14/2023 in follow-up on the regular medical floor. He is currently sitting up in bed. Awake and alert in no acute distress. He is maintaining O2 saturations in the 90s on room air. He is currently on Pulmicort and Perforomist inhalations, DuoNeb inhalations, antibiotics in the form of Augmentin. The plan is for palliative radiation to his left hip, pelvis and lower back. He has been seen by orthopedics as well. No surgical interventions planned. The patient is seen today 03/15/2023 in follow-up on the regular medical floor. He is awake and alert in no acute distress. Resting fairly comfortably in bed. If he continues to maintain good O2 saturations in the 90s on room air. He is continued on DuoNeb inhalations, Pulmicort, prednisone taper. Anticoagulated w ith Eliquis. Antibiotics in the form of Augmentin. 03/18/2020 on seeing the patient for a follow-up. He is calm and comfortable and he is not having any major respiratory difficulties. He is nonweightbearing at this point in time. He has a Benjamin catheter in place. He has metastatic prostate cancer. He is receiving radiation therapy to his left hip. He has already undergone previous radiation therapy treatments. The patient continues to receive bicalutamide for his prostate cancer. He also received Zometa today, as well as palliative radiation therapy. No signs of any significant resp iratory distress. I reviewed the most recent CAT scan findings. There is a small right-sided pleural effusion. Post radiation changes involving the right lung. 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 He has also COPD, CHF, hypertension chronic back pain and coronary artery disease with previous coronary stenting and history of prostate cancer as mentioned. He was admitted because of difficulties with pain Objective - Vital Signs Vital signs: Vital Signs Temp 98.3 F 03/18/23 11:29 Pulse 96 03/18/23 12:10 Resp 18 03/18/23 11:29 BP 125/56 03/18/23 11:29 Pulse Ox 93 L 03/18/23 11:29 FiO2 21 03/16/23 08:18 Intake & Output 03/17/23 03/18/23 03/18/23 18:59 06:59 18:59 Intake Total 500 Output Total 400 1000 Balance -400 -500 Intake: Oral 500 Output: Urine 400 1000 Other: Voiding Method Urinal Urinal Urinal # Voids 1 # Bowel Movements 1 - Exam GENERAL EXAM: Alert, calm and cooperative 72-year-old male, comfortable in no acute distress HEAD: Normocephalic and atraumatic EYES: Normal reaction of pupils, equal size. NOSE: Clear with pink turbinates. THROAT: No erythema or exudates. NECK: No masses, no JVD. CHEST: No chest wall deformity. LUNGS: Equal air entry with no crackles, wheeze, rhonchi or dullness. No conversational dyspnea. CVS: S1 and S2 normal with no audible murmur, regular rhythm. No extra heart sounds ABDOMEN: Obese abdomen, no hepatosplenomegaly, active bowel sounds, no guarding or rigidity. SPINE: No scoliosis or deformity SKIN: No rashes CENTRAL NERVOUS SYSTEM: Left lower extremity weakness. No other focal deficits. EXTREMITIES: There is no peripheral edema. No clubbing, or cyanosis. Peripheral pulses are intact. - Labs CBC & Chem 7: 03/16/23 06:38 03/18/23 05:21 Labs: Abnormal Lab Results - Last 24 Hours (Table) 03/18/23 Range/Units 05:21 Potassium 5.2 H (3.5-5.1) mmol/L Chloride 108 H (98-107) mmol/L Creatinine 0.62 L (0.66-1.25) mg/dL Glucose 122 H (74-99) mg/dL Calcium 7.8 L (8.4-10.2) mg/dL Assessment and Plan Plan: Intractable left hip and lower back pain. CT scan of the abdomen and pelvis revealed evidence of metastatic changes in the left femoral neck and right greater trochanter. There is increased enlargement of the para aortic and bilateral iliac chain lymph nodes with worsening metastasis. Redemonstrated large lobulated soft tissue mass in the region of the prostate gland measuring up to 7.7 cm. Likely representing metastatic disease. The patient is receiving palliative radiation to the left hip, pelvis and lower back this week Recent diagnosis of prostate cancer with osseous metastasis. Initiated on Casodex History of squamous cell lung cancer with previous chemo/radiation, intolerant immunotherapy Chronic and recurrent right-sided pleural effusion, most recent thoracentesis done on 03/25/2022. Negative for cytologically malignant cells at that time. Chest x-ray this admission shows a right lower lobe effusion and possible superimposed infiltrate. There were destructive left sided rib lesions. Chronic obstructive pulmonary disease, stable Normocytic normochromic anemia, no obvious evidence of acute blood loss Coronary artery disease with previous stent placement Hyperlipidemia Benign essential hypertension Peripheral vascular occlusive disease. History DVT, anticoagulated on Eliquis Ex smoker Plan: Pulmonary status is stable Continue Symbicort and DuoNeb inhalations Continue with palliative radiation therapy Nonweightbearing at this point in time Benjamin catheter will be kept in place Continue anticoagulation with Eliquis Patient is currently on room air oxygen The patient continues to receive bicalutamide for his prostate cancer. He also received Zometa, as well as palliative radiation therapy. We'll continue to follow
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
[2023-03-18] MEDS: ONDANSETRON 4 MG/2 ML VIAL IVP PRN ×2 (16:42→21:33)
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
[2023-03-18] MEDS: ATORVASTATIN 20 MG TAB PO SCH (21:30)
[2023-03-19] MEDS: IPRATROPIUM-ALBUTEROL 3 ML NEB INHALATION SCH ×4 (01:55→21:17)
[2023-03-19] MEDS: HYDROmorphone 0.5 MG/0.5 ML SYRINGE IVP PRN ×4 (03:42→15:49)
[2023-03-19] MEDS: polyethylene glycoL 3350 17 GM POWD.PACK PO PRN (06:07)
[2023-03-19] MEDS: SYMBICORT 160-4.5 MCG INHALER INHALATION SCH ×2 (07:20→21:17)
[2023-03-19] MEDS: MAGNESIUM OXIDE 400 MG TAB PO SCH ×2 (08:24→21:19)
[2023-03-19] MEDS: FAMOTIDINE 20 MG TAB PO SCH ×3 (08:25→21:19)
[2023-03-19] MEDS: ASPIRIN 81 MG PO SCH (08:26)
[2023-03-19] MEDS: carvediloL 12.5 MG TAB PO SCH ×2 (08:26→17:48)
[2023-03-19] MEDS: THIAMINE 100 MG TAB PO SCH (08:26)
[2023-03-19] MEDS: SENNOSIDES-DOCUSATE SODIUM 1 EACH TAB PO SCH ×2 (08:26→21:19)
[2023-03-19] MEDS: PSYLLIUM HUSK 100% 6 GM PACKET PO SCH ×2 (08:27→21:20)
[2023-03-19] MEDS: methocarbamoL 500 MG TAB PO SCH ×4 (08:27→21:19)
[2023-03-19] MEDS: APIXABAN 5 MG TAB PO SCH ×2 (08:27→21:19)
[2023-03-19] MEDS: MEGESTROL 400 MG/10 ML CUP PO SCH (08:27)
[2023-03-19] MEDS: BICALUTAMIDE 50 MG TAB PO SCH (08:28)
[2023-03-19] MEDS: predniSONE 5 MG TAB PO SCH ×2 (08:28→21:19)
[2023-03-19] MEDS: ALPRAZolam 0.5 MG TAB PO SCH ×2 (08:50→21:19)
[2023-03-19] MEDS ORDERED: MAGNESIUM HYDROXIDE 2,400 MG/30 ML CUP PO PRN (11:07)
--- NOTE | 2023-03-19 13:49 | P.PN ---
Subjective Progress Note Date: 03/19/23 I am seeing this patient in consultation today 03/12/2023 after the patient presented to the emergency room 2 days ago with intractable left thigh and back pain. Patient is a 72-year-old white male with past medical history significant for known squamous cell lung carcinoma diagnosed March 2020, s/p chemo and radiation, poor tolerance to immunotherapy, right-sided pleural effusion with previous thoracentesis, chronic obstructive pulmonary disease, congestive heart failure, hypertension, chronic back pain, peripheral vascular occlusive disease, coronary artery disease with previous stent, and is an ex smoker. Last month, the patient was admitted for left thigh pain. CT of the pelvis and left femur showed focal sclerosis in the region of the greater trochanter of the right hip with cortical discontinuity suspicious for metastatic lesion, there was also vague sclerosis involving the left iliac wing which could reflect a site of additional sclerotic metastatic lesion. There was also a significant enlargement of the prostate gland with glandular irregularity measuring 8.5 x 6.5 cm. [facility] and [facility] had biopsies performed at [facility]. I do not have these reports, but the patient states that it was positive for metastatic prostate cancer. Patient presented to the emergency room 2 days ago with a primary complaint of intractable pain. The pain is predominantly on his left hip and lower back. He has had trouble walking. Patient has been reportedly started on Casodex for his prostate CA. His oncologist is Dr. Ignacio. Patient is currently sitting up in bed, on room air, in no acute distress. Patient actually denies any significant pulmonary complaints. Chest x-ray on arrival shows a chronic right-sided pleural effusion and possible superimposed infiltrate. Findings appear chronic in my opinion. There is also an destructive left-sided rib lesion noted. CBC on arrival did not show any leukocytosis. WBC count 5.6, hemoglobin 9.4, hematocrit 29.7, platelets 219. BMP on arrival shows sodium 135, potassium 5.1, chloride 103, serum bicarb 22, BUN 24, creatinine 0.65, glucose 125. Negative for occult blood. Procalcitonin level was mildly elevated at 0.14. Patient was empirically placed on Rocephin and azithromycin. Patient is afebrile. He is admitted to the general medical floor. The patient is seen today 03/13/2023 in follow-up on the regular medical floor. He is currently resting in bed. Awake and alert in no acute distress. He denies any significant pain. He is maintaining good O2 saturations in the 90s o n room air. There was some concern regarding possible right lower lobe infiltrate. He's been on azithromycin which she completed. Currently on ceftriaxone. His pro calcitonin was 0.14. CT scan of the abdomen and pelvis revealed evidence of metastatic changes in the left femoral neck and right g reater trochanter. There is increased enlargement of the para aortic and bilateral iliac chain lymph nodes with worsening metastasis. Redemonstrated large lobulated soft tissue mass in the region of the prostate gland measuring up to 7.7 cm. Likely likely representing metastatic disease. The patient is seen today 03/14/2023 in follow-up on the regular medical floor. He is currently sitting up in bed. Awake and alert in no acute distress. He is maintaining O2 saturations in the 90s on room air. He is currently on Pulmicort and Perforomist inhalations, DuoNeb inhalations, antibiotics in the form of Augmentin. The plan is for palliative radiation to his left hip, pelvis and lower back. He has been seen by orthopedics as well. No surgical interventions planned. The patient is seen today 03/15/2023 in follow-up on the regular medical floor. He is awake and alert in no acute distress. Resting fairly comfortably in bed. If he continues to maintain good O2 saturations in the 90s on room air. He is continued on DuoNeb inhalations, Pulmicort, prednisone taper. Anticoagulated w ith Eliquis. Antibiotics in the form of Augmentin. 03/18/2020 on seeing the patient for a follow-up. He is calm and comfortable and he is not having any major respiratory difficulties. He is nonweightbearing at this point in time. He has a Benjamin catheter in place. He has metastatic prostate cancer. He is receiving radiation therapy to his left hip. He has already undergone previous radiation therapy treatments. The patient continues to receive bicalutamide for his prostate cancer. He also received Zometa today, as well as palliative radiation therapy. No signs of any significant resp iratory distress. I reviewed the most recent CAT scan findings. There is a small right-sided pleural effusion. Post radiation changes involving the right lung. 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 He has also COPD, CHF, hypertension chronic back pain and coronary artery disease with previous coronary stenting and history of prostate cancer as mentioned. He was admitted because of difficulties with pain On today's evaluation of 03/19/2023, the patient is still complaining of pain in his hip and the patient is to undergo another radiation. Another issue is constipation as the patient is taking narcotics. He was given various forms of laxatives including milk of magnesia, Senokot, Metamucil and lactulose. We are contemplating also doing an enema on him. No signs of any respiratory distress. He remains on room air oxygen. Is on Symbicort. Is on DuoNeb neb blotchiness on the clock. Is undergoing palliative radiation therapy to his hip area. Objective - Vital Signs Vital signs: Vital Signs Temp 98.1 F 03/19/23 08:05 Pulse 76 03/19/23 11:35 Resp 18 03/19/23 08:05 BP 134/86 03/19/23 08:05 Pulse Ox 93 L 03/19/23 01:52 FiO2 21 03/16/23 08:18 Intake & Output 03/18/23 03/19/23 03/19/23 18:59 06:59 18:59 Intake Total 540 718 Output Total 900 800 Balance -360 -82 Intake: Oral 540 718 Output: Urine 900 800 Other: Voiding Method Urinal Urinal Indwelling Catheter - Exam GENERAL EXAM: Alert, calm and cooperative 72-year-old male, comfortable in no acute distress HEAD: Normocephalic and atraumatic EYES: Normal reaction of pupils, equal size. NOSE: Clear with pink turbinates. THROAT: No erythema or exudates. NECK: No masses, no JVD. CHEST: No chest wall deformity. LUNGS: Equal air entry with no crackles, wheeze, rhonchi or dullness. No conversational dyspnea. CVS: S1 and S2 normal with no audible murmur, regular rhythm. No extra heart sounds ABDOMEN: Obese abdomen, no hepatosplenomegaly, active bowel sounds, no guarding or rigidity. SPINE: No scoliosis or deformity SKIN: No rashes CENTRAL NERVOUS SYSTEM: Left lower extremity weakness. No other focal deficits. EXTREMITIES: There is no peripheral edema. No clubbing, or cyanosis. Peripheral pulses are intact. - Labs CBC & Chem 7: 03/16/23 06:38 03/18/23 05:21 Assessment and Plan Plan: Intractable left hip and lower back pain. CT scan of the abdomen and pelvis revealed evidence of metastatic changes in the left femoral neck and right greater trochanter. There is increased enlargement of the para aortic and bilateral iliac chain lymph nodes with worsening metastasis. Redemonstrated large lobulated soft tissue mass in the region of the prostate gland measuring up to 7.7 cm. Likely representing metastatic disease. The patient is receiving palliative radiation to the left hip, pelvis and lower back this week Recent diagnosis of prostate cancer with osseous metastasis. Initiated on Casodex History of squamous cell lung cancer with previous chemo/radiation, intolerant immunotherapy Chronic and recurrent right-sided pleural effusion, most recent thoracentesis d one on 03/25/2022. Negative for cytologically malignant cells at that time. Chest x-ray this admission shows a right lower lobe effusion and possible superimposed infiltrate. There were destructive left sided rib lesions. Chronic obstructive pulmonary disease, stable Normocytic normochromic anemia, no obvious evidence of acute blood loss Coronary artery disease with previous stent placement Hyperlipidemia Benign essential hypertension Peripheral vascular occlusive disease. History DVT, anticoagulated on Eliquis Ex smoker Constipation Plan: Pulmonary status is stable Continue Symbicort and DuoNeb inhalations Continue with palliative radiation therapy Nonweightbearing at this point in time Benjamin catheter will be kept in place Continue anticoagulation with Eliquis Continue with laxatives regarding his constipation. Consider the need for an enema. Patient is currently on room air oxygen The patient continues to receive bicalutamide for his prostate cancer. He also received Zometa, as well as palliative radiation therapy. We'll continue to follow
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
[2023-03-19] MEDS: GLYCERIN ADULT SUPPOSITORY 1 EACH RECTAL PRN (15:44)
--- NOTE | 2023-03-19 17:25 | P.PN ---
Subjective Progress Note Date: 03/19/23 Principal diagnosis: Intractable pain, new diagnosis of metastatic prostate cancer In f/u patient up in a chair today again, rt hip is bothering more then lt hip today. No BM yet. Tolerated zometa, cont on casodex. Objective - Vital Signs Vital signs: Vital Signs Temp 98.1 F 03/19/23 08:05 Pulse 89 03/19/23 08:05 Resp 18 03/19/23 08:05 BP 134/86 03/19/23 08:05 Pulse Ox 93 L 03/19/23 01:52 FiO2 21 03/16/23 08:18 Intake & Output 03/18/23 03/19/23 03/19/23 18:59 06:59 18:59 Intake Total 540 718 Output Total 900 800 Balance -360 -82 Intake: Oral 540 718 Output: Urine 900 800 Other: Voiding Method Urinal Urinal - Constitutional General appearance: Present: cooperative, no acute distress, obese - EENT Eyes: Present: anicteric sclerae, EOMI ENT: Present: hearing grossly normal - Respiratory Details: resp even and unlabored at rest - Cardiovascular Details: skin warm and dry to touch, mild BLE edema - Neurologic Neurologic: Present: CNII-XII intact - Psychiatric Psychiatric: Present: A&O x's 3, appropriate affect, intact judgment & insight - Labs CBC & Chem 7: 03/16/23 06:38 03/18/23 05:21 Assessment and Plan (1) Prostate cancer metastatic to bone Current Visit: Yes Status: Acute Priority: High Code(s): C61 - MALIGNANT NEOPLASM OF PROSTATE; C79.51 - SECONDARY MALIGNANT NEOPLASM OF BONE SNOMED Code(s): 82992086 (2) Intractable pain Current Visit: Yes Status: Acute Priority: High Code(s): R52 - PAIN, UNSPECIFIED SNOMED Code(s): 89504148 (3) Non-small cell cancer of right lung Current Visit: No Status: Chronic Priority: Low Code(s): C34.91 - MALIGNANT NEOPLASM OF UNSP PART OF RIGHT BRONCHUS OR LUNG SNOMED Code(s): 261553656 (4) Acute exacerbation of chronic obstructive pulmonary disease Current Visit: Yes Status: Resolved Priority: High Code(s): J44.1 - CHRONIC OBSTRUCTIVE PULMONARY DISEASE W (ACUTE) EXACERBATION SNOMED Code(s): 860919962 Plan: Prostate cancer metastatic to the bone, Intractable pain -New diagnosis, from bone biopsy taken at [facility] -Casodex initiated for initial treatment of metastatic prostate cancer -Painful bone metastases in the left hip/femur. CT pelvis and femur reports reviewed, mention of possible pathological fracture on the right. Patient has started radiation for the same -zometa given x 1 for painful bone mets -Pain management following, pain control adequate most of the time -Medications for prevention of narcotic-induced constipation, suppositories added -Cont casodex Still pending placement of patient in a rehabilitation facility. Plan is to try and get to facility close to home and that will allow pt to complete palliative radiation. Discussed case with Internal Medicine and Centrifugal Supervisor Follow up with Medical Oncologist will be scheduled once we know pt is going to be discharged and approx when he will be discharged from rehab. PSMA PET scan will be scheduled once patient is out of the hospital and has completed rehabilitation. After 30 days of casodex, further treatment options will be discussed. Non-small cell lung cancer -Definitive treatment 2020. -did not tolerate maintenance IO, last treatment November 2020 -Has been on f/u since, no evidence of disease recurrence -He is due for Q 3 mo f/u imaging-will await DC plans and order after -pt had hemoptysis x 1 this admit, none since -Treated this admit for COPD exacerbation -Pulmonary following
[2023-03-19] MEDS: HYDROmorphone 2 MG TAB PO PRN (17:47)
[2023-03-19] MEDS ORDERED: HYDROmorphone 1 MG/ML 1 ML SYRINGE IM PRN (18:41)
[2023-03-19] MEDS ORDERED: NALOXONE 0.4 MG/ML 1 ML VIAL IVP PRN (18:52)
[2023-03-19] MEDS: ATORVASTATIN 20 MG TAB PO SCH (21:19)
[2023-03-20] MEDS: IPRATROPIUM-ALBUTEROL 3 ML NEB INHALATION SCH ×4 (02:56→19:25)
[2023-03-20] MEDS: HYDROmorphone 2 MG TAB PO PRN ×3 (06:38→18:36)
[2023-03-20] MEDS: SYMBICORT 160-4.5 MCG INHALER INHALATION SCH ×2 (07:50→19:25)
[2023-03-20] MEDS: SENNOSIDES-DOCUSATE SODIUM 1 EACH TAB PO SCH ×2 (08:29→20:45)
[2023-03-20] MEDS: methocarbamoL 500 MG TAB PO SCH ×4 (08:29→21:04)
[2023-03-20] MEDS: PSYLLIUM HUSK 100% 6 GM PACKET PO SCH ×2 (08:29→20:46)
[2023-03-20] MEDS: APIXABAN 5 MG TAB PO SCH ×2 (08:30→20:44)
[2023-03-20] MEDS: predniSONE 5 MG TAB PO SCH ×2 (08:30→20:44)
[2023-03-20] MEDS: MAGNESIUM OXIDE 400 MG TAB PO SCH ×2 (08:30→20:44)
[2023-03-20] MEDS: carvediloL 12.5 MG TAB PO SCH ×2 (08:31→18:35)
[2023-03-20] MEDS: ALPRAZolam 0.5 MG TAB PO SCH ×2 (08:31→20:44)
[2023-03-20] MEDS: THIAMINE 100 MG TAB PO SCH (08:31)
[2023-03-20] MEDS: BICALUTAMIDE 50 MG TAB PO SCH (09:11)
[2023-03-20] MEDS ORDERED: LACTULOSE 20 GM/30 ML CUP PO ONE (11:03)
[2023-03-20] MEDS: HYDROmorphone 1 MG/ML 1 ML SYRINGE IVP PRN (12:27)
[2023-03-20] MEDS: ONDANSETRON 4 MG/2 ML VIAL IVP PRN (13:44)
--- NOTE | 2023-03-20 14:15 | P.PN ---
Subjective Progress Note Date: 03/20/23 Principal diagnosis: Intractable pain, new diagnosis of metastatic prostate cancer In f/u patient Reporting that the pain in his left leg is improved, the pain in his right leg is stable. He is motivated to go to rehabilitation. Objective - Vital Signs Vital signs: Vital Signs Temp 99.3 F 03/20/23 13:22 Pulse 89 03/20/23 13:22 Resp 16 03/20/23 13:22 BP 108/65 03/20/23 13:22 Pulse Ox 92 L 03/20/23 13:22 FiO2 21 03/16/23 08:18 Intake & Output 03/19/23 03/20/23 03/20/23 18:59 06:59 18:59 Output Total 900 400 Balance -900 -400 Output: Urine 900 400 Other: Voiding Method Indwelling Catheter Indwelling Catheter - Constitutional General appearance: Present: average body habitus, cooperative, no acute distress - EENT Eyes: Present: anicteric sclerae, EOMI ENT: Present: hearing grossly normal - Respiratory Details: Respirations even and nonlabored at rest - Cardiovascular Details: Skin warm and dry to the touch, radial pulse +2 - Peripheral edema leg Peripheral Edema: bilateral: 1+ - Integumentary Integumentary: Present: normal - Neurologic Neurologic: Present: CNII-XII intact - Musculoskeletal Musculoskeletal: Present: generalized weakness - Psychiatric Psychiatric: Present: A&O x's 3, appropriate affect, intact judgment & insight - Labs CBC & Chem 7: 03/16/23 06:38 03/18/23 05:21 Assessment and Plan (1) Prostate cancer metastatic to bone Current Visit: Yes Status: Acute Priority: High Code(s): C61 - MALIGNANT NEOPLASM OF PROSTATE; C79.51 - SECONDARY MALIGNANT NEOPLASM OF BONE SNOMED Code(s): 58590619 (2) Intractable pain Current Visit: Yes Status: Acute Priority: High Code(s): R52 - PAIN, UNSPECIFIED SNOMED Code(s): 74242867 (3) Non-small cell cancer of right lung Current Visit: No Status: Chronic Priority: Low Code(s): C34.91 - MALIGNANT NEOPLASM OF UNSP PART OF RIGHT BRONCHUS OR LUNG SNOMED Code(s): 417021796 (4) Acute exacerbation of chronic obstructive pulmonary disease Current Visit: Yes Status: Resolved Priority: High Code(s): J44.1 - CHRONIC OBSTRUCTIVE PULMONARY DISEASE W (ACUTE) EXACERBATION SNOMED Code(s): 980931953 Plan: Prostate cancer metastatic to the bone, Intractable pain -New diagnosis, pathology from bone biopsy taken at [facility] -Casodex hormonal treatment initiated for initial treatment of metastatic prostate cancer, cont for now -Painful bone metastases in the left hip/femur. CT pelvis and femur reports re viewed, mention of possible pathological fracture on the right. Patient has started radiation for both -zometa x 1 for bone mets -Pain management following, pain control adequate most of the time -Multiple medications for prevention of narcotic-induced constipation Case discussed with Attending. Plan is to complete palliative radiation to painful bone metastases before her transfer to rehabilitation facility. Case discussed with PT/OT. Weightbearing limitations on the right leg due to the possibility for pathological fracture. The left leg is painful but, no imaging has suggested impending fracture. Left leg is weightbearing as patient tolerates. Follow up with Medical Oncologist will be scheduled once we know pt is going to be discharged and approx when he will be discharged from rehab. PSMA PET scan will be scheduled once patient is out of the hospital and has completed rehab ilitation. Cont casodex for now, further treatment options will be discussed once pt discharged from rehab. Non-small cell lung cancer -Definitive treatment 2020. -did not tolerate maintenance IO, last treatment November 2020 -Has been on f/u since, no evidence of disease recurrence -He is due for Q 3 mo f/u imaging-will await DC plans and order after -pt had hemoptysis x 1 this admit, none since -Completed treatment for COPD exacerbation, per Pulmonary recs
[2023-03-20] MEDS ORDERED: bisacodyL 10 MG SUPP RECTAL STA (15:32)
--- NOTE | 2023-03-20 15:34 | P.PN ---
Subjective Progress Note Date: 03/20/23 I am seeing this patient in consultation today 03/12/2023 after the patient presented to the emergency room 2 days ago with intractable left thigh and back pain. Patient is a 72-year-old white male with past medical history significant for known squamous cell lung carcinoma diagnosed March 2020, s/p chemo and radiation, poor tolerance to immunotherapy, right-sided pleural effusion with previous thoracentesis, chronic obstructive pulmonary disease, congestive heart failure, hypertension, chronic back pain, peripheral vascular occlusive disease, coronary artery disease with previous stent, and is an ex smoker. Last month, the patient was admitted for left thigh pain. CT of the pelvis and left femur showed focal sclerosis in the region of the greater trochanter of the right hip with cortical discontinuity suspicious for metastatic lesion, there was also vague sclerosis involving the left iliac wing which could reflect a site of additional sclerotic metastatic lesion. There was also a significant enlargement of the prostate gland with glandular irregularity measuring 8.5 x 6.5 cm. [facility] and [facility] had biopsies performed at [facility]. I do not have these reports, but the patient states that it was positive for metastatic prostate cancer. Patient presented to the emergency room 2 days ago with a primary complaint of intractable pain. The pain is predominantly on his left hip and lower back. He has had trouble walking. Patient has been reportedly started on Casodex for his prostate CA. His oncologist is Dr. Ignacio. Patient is currently sitting up in bed, on room air, in no acute distress. Patient actually denies any significant pulmonary complaints. Chest x-ray on arrival shows a chronic right-sided pleural effusion and possible superimposed infiltrate. Findings appear chronic in my opinion. There is also an destructive left-sided rib lesion noted. CBC on arrival did not show any leukocytosis. WBC count 5.6, hemoglobin 9.4, hematocrit 29.7, platelets 219. BMP on arrival shows sodium 135, potassium 5.1, chloride 103, serum bicarb 22, BUN 24, creatinine 0.65, glucose 125. Negative for occult blood. Procalcitonin level was mildly elevated at 0.14. Patient was empirically placed on Rocephin and azithromycin. Patient is afebrile. He is admitted to the general medical floor. The patient is seen today 03/13/2023 in follow-up on the regular medical floor. He is currently resting in bed. Awake and alert in no acute distress. He denies any significant pain. He is maintaining good O2 saturations in the 90s o n room air. There was some concern regarding possible right lower lobe infiltrate. He's been on azithromycin which she completed. Currently on ceftriaxone. His pro calcitonin was 0.14. CT scan of the abdomen and pelvis revealed evidence of metastatic changes in the left femoral neck and right g reater trochanter. There is increased enlargement of the para aortic and bilateral iliac chain lymph nodes with worsening metastasis. Redemonstrated large lobulated soft tissue mass in the region of the prostate gland measuring up to 7.7 cm. Likely likely representing metastatic disease. The patient is seen today 03/14/2023 in follow-up on the regular medical floor. He is currently sitting up in bed. Awake and alert in no acute distress. He is maintaining O2 saturations in the 90s on room air. He is currently on Pulmicort and Perforomist inhalations, DuoNeb inhalations, antibiotics in the form of Augmentin. The plan is for palliative radiation to his left hip, pelvis and lower back. He has been seen by orthopedics as well. No surgical interventions planned. The patient is seen today 03/15/2023 in follow-up on the regular medical floor. He is awake and alert in no acute distress. Resting fairly comfortably in bed. If he continues to maintain good O2 saturations in the 90s on room air. He is continued on DuoNeb inhalations, Pulmicort, prednisone taper. Anticoagulated w ith Eliquis. Antibiotics in the form of Augmentin. 03/18/2020 on seeing the patient for a follow-up. He is calm and comfortable and he is not having any major respiratory difficulties. He is nonweightbearing at this point in time. He has a Benjamin catheter in place. He has metastatic prostate cancer. He is receiving radiation therapy to his left hip. He has already undergone previous radiation therapy treatments. The patient continues to receive bicalutamide for his prostate cancer. He also received Zometa today, as well as palliative radiation therapy. No signs of any significant resp iratory distress. I reviewed the most recent CAT scan findings. There is a small right-sided pleural effusion. Post radiation changes involving the right lung. 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 He has also COPD, CHF, hypertension chronic back pain and coronary artery disease with previous coronary stenting and history of prostate cancer as mentioned. He was admitted because of difficulties with pain On today's evaluation of 03/19/2023, the patient is still complaining of pain in his hip and the patient is to undergo another radiation. Another issue is constipation as the patient is taking narcotics. He was given various forms of laxatives including milk of magnesia, Senokot, Metamucil and lactulose. We are contemplating also doing an enema on him. No signs of any respiratory distress. He remains on room air oxygen. Is on Symbicort. Is on DuoNeb neb blotchiness on the clock. Is undergoing palliative radiation therapy to his hip area. On 03/20/2023, the patient is being seen for a follow-up. No respiratory difficulties. Exhibition remains constipation and the patient continues to receive laxatives. Has not had a bowel movement yet. Continues to receive radiation therapy to his left hip area. He remains on room air oxygen. No signs of any respiratory distress. Remains off prednisone 5 mg by mouth daily. Remains on Symbicort and albuterol in about treatments [id number]. No chest pain. No hemoptysis. No pleurisy. Objective - Vital Signs Vital signs: Vital Signs Temp 99.3 F 03/20/23 13:22 Pulse 89 03/20/23 13:22 Resp 16 03/20/23 13:22 BP 108/65 03/20/23 13:22 Pulse Ox 92 L 03/20/23 13:22 FiO2 21 03/16/23 08:18 Intake & Output 03/19/23 03/20/23 03/20/23 18:59 06:59 18:59 Output Total 900 400 Balance -900 -400 Output: Urine 900 400 Other: Voiding Method Indwelling Catheter Indwelling Catheter - Exam GENERAL EXAM: Alert, calm and cooperative 72-year-old male, comfortable in no acute distress HEAD: Normocephalic and atraumatic EYES: Normal reaction of pupils, equal size. NOSE: Clear with pink turbinates. THROAT: No erythema or exudates. NECK: No masses, no JVD. CHEST: No chest wall deformity. LUNGS: Equal air entry with no crackles, wheeze, rhonchi or dullness. No conversational dyspnea. CVS: S1 and S2 normal with no audible murmur, regular rhythm. No extra heart sounds ABDOMEN: Obese abdomen, no hepatosplenomegaly, active bowel sounds, no guarding or rigidity. SPINE: No scoliosis or deformity SKIN: No rashes CENTRAL NERVOUS SYSTEM: Left lower extremity weakness. No other focal deficits. EXTREMITIES: There is no peripheral edema. No clubbing, or cyanosis. Peripheral pulses are intact. - Labs CBC & Chem 7: 03/16/23 06:38 03/18/23 05:21 Assessment and Plan Plan: Intractable left hip and lower back pain. CT scan of the abdomen and pelvis revealed evidence of metastatic changes in the left femoral neck and right greater trochanter. There is increased enlargement of the para aortic and bilateral iliac chain lymph nodes with worsening metastasis. Redemonstrated large lobulated soft tissue mass in the region of the prostate gland measuring up to 7.7 cm. Likely representing metastatic disease. The patient is receiving palliative radiation to the left hip, pelvis and lower back this week Recent diagnosis of prostate cancer with osseous metastasis. Initiated on Casodex History of squamous cell lung cancer with previous chemo/radiation, intolerant immunotherapy Chronic and recurrent right-sided pleural effusion, most recent thoracentesis done on 03/25/2022. Negative for cytologically malignant cells at that time. Chest x-ray this admission shows a right lower lobe effusion and possible superimposed infiltrate. There were destructive left sided rib lesions. Chronic obstructive pulmonary disease, stable Normocytic normochromic anemia, no obvious evidence of acute blood loss Coronary artery disease with previous stent placement Hyperlipidemia Benign essential hypertension Peripheral vascular occlusive disease. History DVT, anticoagulated on Eliquis Ex smoker Constipation Plan: The plan is essentially the same. We'll hopefully be able to have a bowel movement today. If not, an enema would be indicated. Pulmonary status is stable Continue Symbicort and DuoNeb inhalations Continue with palliative radiation therapy Nonweightbearing at this point in time Benjamin catheter will be kept in place Continue anticoagulation with Eliquis Continue with laxatives regarding his constipation. Consider the need for an enema. Patient is currently on room air oxygen The patient continues to receive bicalutamide for his prostate cancer. He also received Zometa, as well as palliative radiation therapy. We'll continue to follow
[2023-03-20] MEDS ORDERED: bisacodyL 5 MG TABLET.DR PO STA (15:36)
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
[2023-03-20] MEDS: FAMOTIDINE 20 MG TAB PO SCH (20:44)
[2023-03-20] MEDS: ATORVASTATIN 20 MG TAB PO SCH (20:45)
[2023-03-21] MEDS: IPRATROPIUM-ALBUTEROL 3 ML NEB INHALATION SCH ×4 (01:49→18:17)
[2023-03-21] MEDS: HYDROmorphone 1 MG/ML 1 ML SYRINGE IVP PRN ×5 (02:52→17:42)
[2023-03-21 07:10] LABS: African American GFR (CKD) >90 (>60 ml/min/1.73 sqM); Anion Gap 7 mmol/L; Blood Urea Nitrogen 21 mg/dL (9-20); Calcium 7.6 mg/dL (8.4-10.2); Carbon Dioxide 21 mmol/L (22-30); Chloride 109 mmol/L (98-107); Glucose 111 mg/dL (74-99); Non-African American GFR(CKD) >90 (>60 ml/min/1.73 sqM); Potassium 4.7 mmol/L (3.5-5.1); Sodium 137 mmol/L (137-145)
[2023-03-21] MEDS: SYMBICORT 160-4.5 MCG INHALER INHALATION SCH ×2 (07:52→18:17)
[2023-03-21] MEDS: predniSONE 5 MG TAB PO SCH ×2 (08:29→20:44)
[2023-03-21] MEDS: GLYCERIN ADULT SUPPOSITORY 1 EACH RECTAL PRN (08:29)
[2023-03-21] MEDS: BICALUTAMIDE 50 MG TAB PO SCH (08:29)
[2023-03-21] MEDS: methocarbamoL 500 MG TAB PO SCH ×4 (08:30→22:39)
[2023-03-21] MEDS: polyethylene glycoL 3350 17 GM POWD.PACK PO PRN (08:30)
[2023-03-21] MEDS: carvediloL 12.5 MG TAB PO SCH ×2 (08:30→17:43)
[2023-03-21] MEDS: ALPRAZolam 0.5 MG TAB PO SCH ×2 (08:31→20:43)
[2023-03-21] MEDS: ASPIRIN 81 MG PO SCH (08:31)
[2023-03-21] MEDS: FAMOTIDINE 20 MG TAB PO SCH ×2 (08:31→20:43)
[2023-03-21] MEDS: APIXABAN 5 MG TAB PO SCH ×2 (08:31→20:43)
[2023-03-21] MEDS: MAGNESIUM OXIDE 400 MG TAB PO SCH ×2 (08:31→20:43)
[2023-03-21] MEDS: PSYLLIUM HUSK 100% 6 GM PACKET PO SCH ×2 (09:12→20:44)
[2023-03-21] MEDS: SENNOSIDES-DOCUSATE SODIUM 1 EACH TAB PO SCH ×2 (09:12→20:44)
[2023-03-21] MEDS: THIAMINE 100 MG TAB PO SCH (09:12)
--- NOTE | 2023-03-21 09:20 | P.PN ---
Progress Note - Text Progress Note Date: 03/21/23 Orthopedics Consult was placed for recommendations for weightbearing status to the right lower extremity. Patient has been evaluated by both orthopedic services in his hospital. Our orthopedic practice it initially seemed patient back in January 2023, and recommended transfer to tertiary care facility for orthopedic oncology workup. Patient has apparently gone through workup with newly diagnosed with metastatic prostate cancer. Patient is a very poor historian with regards to his treatment over the last 6-8 weeks. We'll be reaching out patient's for further description of treatment. There was concerns at that initial consult back in January of a bony lesion in the right greater trochanter with a nondisplaced pathological fracture. At that time we have recommended weight- bear as tolerated with walker and to follow-up with orthopedic oncology regarding this. Our recommendations remain the same at this time. Full consult pending
--- NOTE | 2023-03-21 11:55 | P.CNOR ---
History of Present Illness - [facility] Consult date: 03/21/23 Consult reason: other (Weightbearing status, history of right greater trochanteric fracture) History of present illness: Patient is a 72-year-old male who was recently admitted to [facility] with regards to worsening pain in his left hip along with concerns of pneumonia. Patient has a very detailed medical history over the last 6-8 weeks. Our orthopedic service had initially evaluated the patient back in January 2023 with concerns for left hip pain. At that time there were multiple imaging studies were obtained that also included images of the right hip. There was concern for a metastatic lesions in the bilateral hips. Patient did have a known history of previous lung cancer, at that time there was also a noted elevated PSA level. Oncology was following the patient at that time. We recommended patient be transferred to tertiary care facility for orthopedic oncology evaluation and also medical oncology. Patient apparently ended up at [facility] and tried, a biopsy was done of the right iliac crest which did demonstrate metastatic prostate cancer. After discussion with both the and the patient, they were not very happy with the treatment they received at [facility]. They were unable to inform me if they were evaluated by an orthopedic oncologist, no surgery was done on either the right or left hip at that time. Patient has been following with the oncology group in [facility], he has received some radiation treatments which seems to be helping with both the left and right hip. Patient has been admitted to our hospital since 03/10/2023. [facility] evaluate the patient on 03/13/2023, they were consulted with regards to worsening left hip pain. Recommendations were made for follow-up with orthopedic oncology at [facility] and transfer if symptoms were not manageable. Our orthopedic team was then consulted on 03/20/2023 for weightbearing status on his right lower extremity. Since his initial admission in January 2023 there was concern for a minimally displaced right greater trochanteric femur fracture in the area of the metastatic lesion. Patient's right hip has been very asymptomatic even since his admission in January 2023. At that time we had recommended weight-bear as tolerated with the use of a wa lker. Patient does admit that the symptoms in both hips seem to be improved since beginning radiation. Patient is being followed by multiple medical specialists at this time. Review of Systems Constitutional: Reports as per [facility] Past Medical History Past Medical History: Cancer, Chest Pain / Angina, Heart Failure, COPD, Hypertension, Myocardial Infarction ([place]), Skin Disorder Additional Past Medical History / Comment(s): chronic back pain, [place] spring 2015; pt has history of PVD with LLE cellulitis, states he had vascular surgery to improve healing, lung CA, had chemo and radiation immunotherapy 2020 Last Myocardial Infarction Date:: 2015 History of Any Multi-Drug Resistant Organisms: MRSA Year Discovered:: 06/25/17 MDRO Source:: LEFT LEG Past Surgical History: Heart Catheterization With Stent, Hernia Repair, Orthopedic Surgery Additional Past Surgical History / Comment(s): left femur ORIF 40 years ago and luisa shoulder surgery- rotator repair, left leg bypass; two stents placed in November 2019, hernia repair 2019 Past Anesthesia/Blood Transfusion Reactions: No Reported Reaction Date of Last Stent Placement:: November 2019 Smoking Status: Former smoker - Past Family History Father Additional Family Medical History / Comment(s): lung cancer Brother(s) Additional Family Medical History / Comment(s): lung cancer Medications and Allergies Home Medications Medication Instructions Recorded Confirmed Type Ondansetron [Zofran] 4 mg PO TID PRN 12/05/20 03/10/23 History carvediloL [Coreg*] 12.5 mg PO BID 12/05/20 03/10/23 History Ipratropium-Albuterol Nebulize 3 ml INHALATION RT-Q6H 07/11/21 03/10/23 History [Duoneb 0.5 mg-3 mg/3 ml Soln] Atorvastatin [Lipitor] 20 mg PO HS 03/24/22 03/10/23 History Famotidine 40 mg PO BID 02/08/23 03/10/23 History Furosemide [Lasix] 60 mg PO DAILY 02/08/23 03/10/23 History predniSONE 5 mg PO BID 02/08/23 03/10/23 History Apixaban [Eliquis] 5 mg PO BID 03/10/23 03/10/23 History Formoterol Fumarate [Perforomist] 20 mcg INHALATION RT-BID 03/10/23 03/10/23 History HYDROmorphone HCL [Dilaudid] 8 mg PO Q4H PRN 03/10/23 03/10/23 History Magnesium Oxide [Mag-Ox] 400 mg PO BID 03/10/23 03/10/23 History Methadone HCl 10 mg PO BID 03/10/23 03/10/23 History Naloxone HCl [Narcan] 4 mg NASAL DIRECTED PRN 03/10/23 03/10/23 History Sennosides [Senokot] 17.2 mg PO DAILY 03/10/23 03/10/23 History Sodium Chloride [Bell Raphine] 1 spray EA NOSTRIL Q4H PRN 03/10/23 03/10/23 History Thiamine [Vitamin B-1] 100 mg PO DAILY 03/10/23 03/10/23 History methocarbamoL [Robaxin] 1,000 mg PO QID 03/10/23 03/10/23 History polyethylene glycoL 3350 [Miralax] 17 gm PO DAILY PRN 03/10/23 03/10/23 History Allergies Allergy/AdvReac Type Severity Reaction Status Date / Time No Known Allergies Allergy Verified 03/10/23 16:26 Physical Examination Right lower extremity: Obvious open lesions or sores are present throughout the extremity. There is some chronic vascular changes noted to the lower extremity No point tenderness appreciated with palpation throughout extremity Patient is able straight leg raising no difficulty, knee extension, knee flexion, plantar flexion, dorsiflexion, EHL, FHL are intact Logroll maneuver reproduces no pain Patient demonstrates adequate strength, no focal deficits appreciated Sensory exam light touch is intact throughout the extremity Compartments of both the upper and lower leg. Anterior-posterior soft compressible Calf is soft, no tenderness with palpation Skin is warm to touch Results - Labs Labs: Abnormal Lab Results - Last 24 Hours (Table) 03/21/23 Range/Units 06:16 Chloride 109 H (98-107) mmol/L Carbon Dioxide 21 L (22-30) mmol/L BUN 21 H (9-20) mg/dL Glucose 111 H (74-99) mg/dL Calcium 7.6 L (8.4-10.2) mg/dL H & H 03/11/23 03/16/23 Range/Units 08:21 06:38 Hgb 9.4 L D 8.9 L (13.0-17.5) gm/dL Hct 29.7 L 28.2 L (39.0-53.0) % Result Diagrams: 03/16/23 06:38 03/21/23 06:16 - Diagnostic results Hip CT: report reviewed, image reviewed (Images and reports were reviewed of both pelvis is from January and February 2023. Sclerotic changes in the right greater trochanteric region with the evidence of a minimally displaced greater trochanteric fracture, there is no extension into the intertrochanteric region) Assessment and Plan Assessment: Subacute/chronic right greater trochanteric femur fracture, pathological, stable Metastatic changes left hip, previous intramedullary nail for left femur fracture Metastatic prostate cancer History of lung cancer Plan: I was able to discuss the case, this including both physical exam findings and imaging studies my tendon Dr. Kothari. Recommending no general orthopedic jada gical intervention at this time I had a long discussion with both the patient and his on the phone today regarding our recommendations for continuation of treatment. I am recommending that the patient follow-up with an orthopedic oncologist regarding the bilateral hips. Discussed the possibility of the medical oncology group that he is currently following with to assist with finding a orthopedic oncologist. Patient made it very clear to me that he does not want to return to [facility] or further workup. Current treatment with radiation seems to be helping the bilateral hips. Recomm end weight-bear as tolerated, utilize walker at all times pain control Pain control, patient is on high-dose narcotics and being followed by pain management DVT prophylaxis per primary medical service PT/OT Our orthopedic service will be signing off at this time, please contact our service with any further questions
--- NOTE | 2023-03-21 13:11 | PN ---
PROGRESS NOTE DATE OF SERVICE: 03/21/2023 SUBJECTIVE: This is a 72-year-old gentleman who was admitted with acute on chronic leg pain, he is being evaluated for metastatic prostate cancer. No chest pain, no palpitations, no fever. OBJECTIVE: VITAL SIGNS: Pulse is 80 to 94, blood pressure 120/60, respirations 18. CHEST: Clear to auscultation. CARDIOVASCULAR: S1, S2. ABDOMEN: Soft. NERVOUS SYSTEM: No focal deficits. LABORATORY DATA: Reviewed. ASSESSMENT: 1. Acute on chronic left leg pain, left thigh. 2. Right hip pain. 3. Possible metastatic prostate malignancy. 4. Questionable right hip trochanteric pathologic fracture. 5. Bladder outflow obstruction. 6. History of pneumonia. 7. Anorexia. 8. Chronic obstructive pulmonary disease. 9. Multiple complex medical issues. RECOMMENDATIONS: Recommended to continue current management, continue symptomatic treatment, closely follow with Hematology/Oncology. Symptomatic treatment for the pain. Follow with Orthopedic surgery. Further recommendations to follow. MMODL / IJN: [id number] /
[2023-03-21] MEDS: HYDROmorphone 2 MG TAB PO PRN ×2 (16:18→22:44)
--- NOTE | 2023-03-21 19:33 | P.PN ---
Subjective Progress Note Date: 03/21/23 I am seeing this patient in consultation today 03/12/2023 after the patient presented to the emergency room 2 days ago with intractable left thigh and back pain. Patient is a 72-year-old white male with past medical history significant for known squamous cell lung carcinoma diagnosed March 2020, s/p chemo and radiation, poor tolerance to immunotherapy, right-sided pleural effusion with previous thoracentesis, chronic obstructive pulmonary disease, congestive heart failure, hypertension, chronic back pain, peripheral vascular occlusive disease, coronary artery disease with previous stent, and is an ex smoker. Last month, the patient was admitted for left thigh pain. CT of the pelvis and left femur showed focal sclerosis in the region of the greater trochanter of the right hip with cortical discontinuity suspicious for metastatic lesion, there was also vague sclerosis involving the left iliac wing which could reflect a site of additional sclerotic metastatic lesion. There was also a significant enlargement of the prostate gland with glandular irregularity measuring 8.5 x 6.5 cm. [facility] and [facility] had biopsies performed at [facility]. I do not have these reports, but the patient states that it was positive for metastatic prostate cancer. Patient presented to the emergency room 2 days ago with a primary complaint of intractable pain. The pain is predominantly on his left hip and lower back. He has had trouble walking. Patient has been reportedly started on Casodex for his prostate CA. His oncologist is Dr. Ignacio. Patient is currently sitting up in bed, on room air, in no acute distress. Patient actually denies any significant pulmonary complaints. Chest x-ray on arrival shows a chronic right-sided pleural effusion and possible superimposed infiltrate. Findings appear chronic in my opinion. There is also an destructive left-sided rib lesion noted. CBC on arrival did not show any leukocytosis. WBC count 5.6, hemoglobin 9.4, hematocrit 29.7, platelets 219. BMP on arrival shows sodium 135, potassium 5.1, chloride 103, serum bicarb 22, BUN 24, creatinine 0.65, glucose 125. Negative for occult blood. Procalcitonin level was mildly elevated at 0.14. Patient was empirically placed on Rocephin and azithromycin. Patient is afebrile. He is admitted to the general medical floor. The patient is seen today 03/13/2023 in follow-up on the regular medical floor. He is currently resting in bed. Awake and alert in no acute distress. He denies any significant pain. He is maintaining good O2 saturations in the 90s o n room air. There was some concern regarding possible right lower lobe infiltrate. He's been on azithromycin which she completed. Currently on ceftriaxone. His pro calcitonin was 0.14. CT scan of the abdomen and pelvis revealed evidence of metastatic changes in the left femoral neck and right g reater trochanter. There is increased enlargement of the para aortic and bilateral iliac chain lymph nodes with worsening metastasis. Redemonstrated large lobulated soft tissue mass in the region of the prostate gland measuring up to 7.7 cm. Likely likely representing metastatic disease. The patient is seen today 03/14/2023 in follow-up on the regular medical floor. He is currently sitting up in bed. Awake and alert in no acute distress. He is maintaining O2 saturations in the 90s on room air. He is currently on Pulmicort and Perforomist inhalations, DuoNeb inhalations, antibiotics in the form of Augmentin. The plan is for palliative radiation to his left hip, pelvis and lower back. He has been seen by orthopedics as well. No surgical interventions planned. The patient is seen today 03/15/2023 in follow-up on the regular medical floor. He is awake and alert in no acute distress. Resting fairly comfortably in bed. If he continues to maintain good O2 saturations in the 90s on room air. He is continued on DuoNeb inhalations, Pulmicort, prednisone taper. Anticoagulated w ith Eliquis. Antibiotics in the form of Augmentin. 03/18/2020 on seeing the patient for a follow-up. He is calm and comfortable and he is not having any major respiratory difficulties. He is nonweightbearing at this point in time. He has a Benjamin catheter in place. He has metastatic prostate cancer. He is receiving radiation therapy to his left hip. He has already undergone previous radiation therapy treatments. The patient continues to receive bicalutamide for his prostate cancer. He also received Zometa today, as well as palliative radiation therapy. No signs of any significant resp iratory distress. I reviewed the most recent CAT scan findings. There is a small right-sided pleural effusion. Post radiation changes involving the right lung. 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 He has also COPD, CHF, hypertension chronic back pain and coronary artery disease with previous coronary stenting and history of prostate cancer as mentioned. He was admitted because of difficulties with pain On today's evaluation of 03/19/2023, the patient is still complaining of pain in his hip and the patient is to undergo another radiation. Another issue is constipation as the patient is taking narcotics. He was given various forms of laxatives including milk of magnesia, Senokot, Metamucil and lactulose. We are contemplating also doing an enema on him. No signs of any respiratory distress. He remains on room air oxygen. Is on Symbicort. Is on DuoNeb neb blotchiness on the clock. Is undergoing palliative radiation therapy to his hip area. On 03/20/2023, the patient is being seen for a follow-up. No respiratory difficulties. Exhibition remains constipation and the patient continues to receive laxatives. Has not had a bowel movement yet. Continues to receive radiation therapy to his left hip area. He remains on room air oxygen. No signs of any respiratory distress. Remains off prednisone 5 mg by mouth daily. Remains on Symbicort and albuterol in about treatments [id number]. No chest pain. No hemoptysis. No pleurisy. On today's evaluation of 03/21/2023, the patient has no respiratory difficulties. The patient is known to have metastatic prostate cancer. The patient is having issues with constipation. The patient is still being given laxatives and the patient has been able to have a small bowel movement. He does have a right greater trochanter with a nondisplaced pathologic fracture. The patient is receiving radiation therapy for palliative reasons. Symptoms of hip pain improved with radiation therapy. As such, the patient has a subacute the right trochanteric femur fracture/pathologic and the patient has metastatic changes in the left hip with previous intramedullary nailing and the patient is is receiving palliative radiation therapy. BUN is at 21 with a creatinine of 0.6 and a sodium level is at 137. He is on room air oxygen. Objective - Vital Signs Vital signs: Vital Signs Temp 98.8 F 03/21/23 11:40 Pulse 90 03/21/23 18:30 Resp 20 03/21/23 17:42 BP 109/62 03/21/23 17:42 Pulse Ox 98 03/21/23 17:42 FiO2 21 03/16/23 08:18 Intake & Output 03/21/23 03/21/23 03/22/23 06:59 18:59 06:59 Intake Total 590 Output Total 400 500 Balance 190 -500 Intake: Oral 590 Output: Urine 400 500 Other: Voiding Method Indwelling Catheter Indwelling Catheter # Voids 0 # Bowel Movements 1 - Exam GENERAL EXAM: Alert, calm and cooperative 72-year-old male, comfortable in no acute distress HEAD: Normocephalic and atraumatic EYES: Normal reaction of pupils, equal size. NOSE: Clear with pink turbinates. THROAT: No erythema or exudates. NECK: No masses, no JVD. CHEST: No chest wall deformity. LUNGS: Equal air entry with no crackles, wheeze, rhonchi or dullness. No conver sational dyspnea. CVS: S1 and S2 normal with no audible murmur, regular rhythm. No extra heart sounds ABDOMEN: Obese abdomen, no hepatosplenomegaly, active bowel sounds, no guarding or rigidity. SPINE: No scoliosis or deformity SKIN: No rashes CENTRAL NERVOUS SYSTEM: Left lower extremity weakness. No other focal deficits. EXTREMITIES: There is no peripheral edema. No clubbing, or cyanosis. Peripheral pulses are intact. - Labs CBC & Chem 7: 03/16/23 06:38 03/21/23 06:16 Labs: Abnormal Lab Results - Last 24 Hours (Table) 03/21/23 Range/Units 06:16 Chloride 109 H (98-107) mmol/L Carbon Dioxide 21 L (22-30) mmol/L BUN 21 H (9-20) mg/dL Glucose 111 H (74-99) mg/dL Calcium 7.6 L (8.4-10.2) mg/dL Assessment and Plan Plan: Intractable left hip and lower back pain. CT scan of the abdomen and pelvis revealed evidence of metastatic changes in the left femoral neck and right greater trochanter. There is increased enlargement of the para aortic and bilateral iliac chain lymph nodes with worsening metastasis. Redemonstrated large lobulated soft tissue mass in the region of the prostate gland measuring up to 7.7 cm. Likely representing metastatic disease. The patient is receiving palliative radiation to the left hip, pelvis and lower back this week, the patient's pain is under better control Pathologic fracture involving the right greater trochanter fracture/subacute Recent diagnosis of prostate cancer with osseous metastasis. Initiated on Casodex History of squamous cell lung cancer with previous chemo/radiation, intolerant i mmunotherapy Chronic and recurrent right-sided pleural effusion, most recent thoracentesis done on 03/25/2022. Negative for cytologically malignant cells at that time. Chest x-ray this admission shows a right lower lobe effusion and possible superimposed infiltrate. There were destructive left sided rib lesions. Chronic obstructive pulmonary disease, stable Normocytic normochromic anemia, no obvious evidence of acute blood loss Coronary artery disease with previous stent placement Hyperlipidemia Benign essential hypertension Peripheral vascular occlusive disease. History DVT, anticoagulated on Eliquis Ex smoker Constipation Plan: The plan is essentially the same. We'll hopefully be able to have a bowel movement today. If not, an enema would be indicated. Pulmonary status is stable Continue Symbicort and DuoNeb inhalations Continue with palliative radiation therapy Nonweightbearing at this point in time Benjamin catheter will be kept in place Continue anticoagulation with Eliquis Continue with laxatives regarding his constipation. C Patient is currently on room air oxygen The patient continues to receive bicalutamide for his prostate cancer. He also received Zometa, as well as palliative radiation therapy. We'll continue to follow
[2023-03-21] MEDS: ATORVASTATIN 20 MG TAB PO SCH (20:43)
--- NOTE | 2023-03-21 21:24 | P.PN ---
Subjective Progress Note Date: 03/21/23 Principal diagnosis: Intractable pain, new diagnosis of metastatic prostate cancer In f/u patient reporting today that he feels relatively decent. He is tolerating radiation, he is motivated to go to rehabilitation. Still no BM Objective - Vital Signs Vital signs: Vital Signs Temp 98.8 F 03/21/23 11:40 Pulse 88 03/21/23 12:38 Resp 16 03/21/23 11:40 BP 108/69 03/21/23 11:40 Pulse Ox 90 L 03/21/23 11:40 FiO2 21 03/16/23 08:18 Intake & Output 03/20/23 03/21/23 03/21/23 18:59 06:59 18:59 Intake Total 590 Output Total 450 400 500 Balance -450 190 -500 Weight 95.254 kg Intake: Oral 590 Output: Urine 450 400 500 Other: Voiding Method Indwelling Catheter Indwelling Catheter # Voids 0 - Constitutional General appearance: Present: average body habitus, cooperative, no acute distr ess - EENT Eyes: Present: anicteric sclerae, EOMI ENT: Present: hearing grossly normal - Respiratory Details: resp even and unlabored at rest - Peripheral edema leg Peripheral Edema: bilateral: Trace - Integumentary Integumentary Comment(s): skin on BLE dry, reddened - Neurologic Neurologic: Present: CNII-XII intact - Musculoskeletal Musculoskeletal: Present: generalized weakness - Psychiatric Psychiatric: Present: A&O x's 3, appropriate affect, intact judgment & insight - Labs CBC & Chem 7: 03/16/23 06:38 03/21/23 06:16 Labs: Abnormal Lab Results - Last 24 Hours (Table) 03/21/23 Range/Units 06:16 Chloride 109 H (98-107) mmol/L Carbon Dioxide 21 L (22-30) mmol/L BUN 21 H (9-20) mg/dL Glucose 111 H (74-99) mg/dL Calcium 7.6 L (8.4-10.2) mg/dL Assessment and Plan (1) Prostate cancer metastatic to bone Current Visit: Yes Status: Acute Priority: High Code(s): C61 - MALIGNANT NEOPLASM OF PROSTATE; C79.51 - SECONDARY MALIGNANT NEOPLASM OF BONE SNOMED Code(s): 72090196 (2) Intractable pain Current Visit: Yes Status: Acute Priority: High Code(s): R52 - PAIN, UNSPECIFIED SNOMED Code(s): 77069735 (3) Non-small cell cancer of right lung Current Visit: No Status: Chronic Priority: Low Code(s): C34.91 - MALIGNANT NEOPLASM OF UNSP PART OF RIGHT BRONCHUS OR LUNG SNOMED Code(s): 543545328 (4) Acute exacerbation of chronic obstructive pulmonary disease Current Visit: Yes Status: Resolved Priority: High Code(s): J44.1 - CHRONIC OBSTRUCTIVE PULMONARY DISEASE W (ACUTE) EXACERBATION SNOMED Code(s): 450643661 Plan: Prostate cancer metastatic to the bone, Intractable pain -New diagnosis, pathology from bone biopsy taken at [facility] -Casodex hormonal treatment initiated for initial treatment of metastatic prostate cancer, cont -Painful bone metastases in the left hip/femur. CT pelvis and femur reports reviewed, mention of possible pathological fracture on the right. Patient has started radiation for both -zometa x 1 for bone mets -Orthopedic input appreciated for PT/OT wt bearing recs -Pain management following, pain control adequate -Multiple medications for prevention of narcotic-induced constipation. Case previously discussed with Attending. Plan is to complete palliative radiation to painful bone metastases before her transfer to rehabilitation facility. Follow up with Medical Oncologist will be scheduled once we know pt is going to be discharged and approx when he will be discharged from rehab. PSMA PET scan will be scheduled once patient is out of the hospital and has completed rehabilitation. Cont casodex for now, further treatment options will be discussed once pt discharged from rehab. Non-small cell lung cancer -Definitive treatment 2020. -did not tolerate maintenance IO, last treatment November 2020 -Has been on f/u since, no evidence of disease recurrence -He is due for Q 3 mo f/u imaging-will await DC plans and order after -pt had hemoptysis x 1 this admit, none since -Completed treatment for COPD exacerbation, per Pulmonary recs
[2023-03-22] MEDS: IPRATROPIUM-ALBUTEROL 3 ML NEB INHALATION SCH ×4 (01:04→20:24)
--- NOTE | 2023-03-22 06:56 | CDI ---
Documentation Clarification Form Date: 03/22/2023 06:55:59 AM From: Columba Mujica RN, CCDS Admit Date: 03/10/2023 03:39:00 PM Patient Name: Joe Matias Visit Number: [id number] Discharge Date: ATTENTION: The Clinical Documentation Specialists (CDI) and [facility] Coding Staff appreciate your assistance in clarifying documentation. Please respond to the clarification below the line at the bottom and electronically sign. The CDI & [facility] Coding staff will review the response and follow-up if needed. Please note: Queries are made part of the Legal Health Record. If you have any questions, please contact the author of this message via ITS. Dr. Kris Dean A bilateral buttock, stage 1 pressure ulcer and a right buttock stage 2 pressure ulcer is documented by Nursing Wound Care starring on admission 03/10/2023. Based on this information and the findings below, is there an additional diagnosis that is clinically appropriate for this patient? History/Risk Factors: Prostate Cancer, Chest Pain / Angina, Heart Failure, COPD, Hypertension, Myocardial Infarction (RI), Skin Disorder Clinical Indicators: Stage one pressure bilateral buttock stage 1, Right buttock stage 2 pressure injury documented in the nursing wound care progress notes on admission 03/10/23. Location: Bilateral buttock, Right buttock Wound description: Bilateral Buttock drainage none, Right buttock drainage none Treatment: Monitor Skin integrity Zinc barrier cream PRN per protocol Skin interventions: Check hourly Is there an additional diagnosis that is clinically appropriate for this patient? [ x ] Bilateral buttock pressure ulcer stage 1, Right buttock pressure ulcer stage II POA [ ] Other condition, please specify [ ] Unable to determine Clinical Definitions: Stage 1 Pressure Ulcer: intact skin, non-blanching redness of local area Stage 2 Pressure Ulcer: Partial thickness, loss of dermis, pink wound bed Stage 3 Pressure Ulcer: Full thickness tissue loss Stage 4 Pressure Ulcer: Full thickness tissue loss with exposed bone, tendon, or muscle. Unstageable pressure ulcer: Full thickness tissue loss in which the base of the ulcer is covered by slough (yellow, candelario, santoro, green or brown) and/or eschar (candelario, brown or black) in the wound bed. (Template Last Revised: July 2020) MTDD
[2023-03-22] MEDS: SYMBICORT 160-4.5 MCG INHALER INHALATION SCH ×2 (07:46→20:24)
[2023-03-22] MEDS: HYDROmorphone 2 MG TAB PO PRN ×4 (08:06→22:04)
[2023-03-22 09:08] LABS: ALT 11 U/L (10-49); AST 29 U/L (14-35); Albumin 3.4 d/dL (3.8-4.9); Albumin/Globulin Ratio 1.42 Ratio (1.60-3.17); Alkaline Phosphatase 518 U/L (41-126); Blood Urea Nitrogen 18.4 mg/dL (9.0-27.0); Calcium 7.6 mg/dL (8.7-10.3); Carbon Dioxide 25.3 mmol/L (21.6-31.8); Chloride 106 mmol/L (96-109); Globulin 2.4 d/dL (1.6-3.3); Glucose 138 mg/dL (70-110); Potassium 4.7 mmol/L (3.5-5.5); Sodium 141 mmol/L (135-145); Total Bilirubin 0.2 mg/dL (0.3-1.2); Total Protein 5.8 d/dL (6.2-8.2)
[2023-03-22 09:09] LABS: Basophils # (A) 0.03 X 10*3/uL (0.00-0.10); Basophils % (A) 0.5 %; Eosinophils # (A) 0.03 X 10*3/uL (0.04-0.35); Eosinophils % (A) 0.5 %; HCT 27.2 % (39.6-50.0); HGB 8.2 d/dL (13.0-17.0); Lymphocytes # (A) 0.23 X 10*3/uL (0.90-5.00); Lymphocytes % (A) 3.9 %; MCH 27.8 pg (27.0-32.0); MCHC 30.1 d/dL (32.0-37.0); MCV 92.2 FL (80.0-97.0); Mean Platelet Volume 9.3 FL (9.5-12.2); Monocytes # (A) 0.44 X 10*3/uL (0.20-1.00); Monocytes % (A) 7.5 %; NRBC Per 100 WBC 0.03 X 10*3/uL (0.00-0.01); Neutrophils # (A) 4.91 X 10*3/uL (1.80-7.70); Neutrophils % (A) 83.5 %; Platelet Count 195 X 10*3/uL (140-440); RBC 2.95 X 10*6/uL (4.40-5.60); RDW 17.6 % (11.5-14.5); WBC 5.88 X 10*3/uL (4.50-10.00)
[2023-03-22] MEDS: ALPRAZolam 0.5 MG TAB PO SCH ×2 (11:15→22:04)
[2023-03-22] MEDS: APIXABAN 5 MG TAB PO SCH ×2 (11:16→22:04)
[2023-03-22] MEDS: ASPIRIN 81 MG PO SCH (11:16)
[2023-03-22] MEDS: methocarbamoL 500 MG TAB PO SCH ×4 (11:17→22:04)
[2023-03-22] MEDS: MAGNESIUM OXIDE 400 MG TAB PO SCH ×2 (11:17→22:04)
[2023-03-22] MEDS: FAMOTIDINE 20 MG TAB PO SCH ×2 (11:17→22:03)
[2023-03-22] MEDS: predniSONE 5 MG TAB PO SCH ×2 (11:18→22:04)
[2023-03-22] MEDS: PSYLLIUM HUSK 100% 6 GM PACKET PO SCH ×2 (11:18→22:03)
[2023-03-22] MEDS: THIAMINE 100 MG TAB PO SCH (11:19)
[2023-03-22] MEDS: SENNOSIDES-DOCUSATE SODIUM 1 EACH TAB PO SCH ×2 (11:19→22:03)
[2023-03-22] MEDS: carvediloL 12.5 MG TAB PO SCH ×2 (12:03→17:46)
[2023-03-22] MEDS: BICALUTAMIDE 50 MG TAB PO SCH (12:21)
--- NOTE | 2023-03-22 19:14 | P.PN ---
Subjective This is a pleasant 72 years old male with multiple medical problems presents because of his metastatic prostate cancer disease. He is known to metastasize to the bone and patient is currently presents with bilateral hip pain. Patient is already been evaluated by orthopedic team. He was found to have metastatic bone with pathological fracture to the right hip but this looks subacute/chronic per orthopedic physician and the recommend patient follow up with orthopedic oncology team as an outpatient. What oncology team also following with the patient very closely and he was already started on a treatment with bicultamide . 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 Continue with several laxative if no improvement by tomorrow we'll consider enema. Pulmonary/oncology team of the case patient this morning looks relaxed pleasant content from some pain on both Area but stated that most of the time and this is addressed. Denies any other specific illness. Objective - Vital Signs Vital signs: Vital Signs Temp 98.4 F 03/22/23 12:35 Pulse 88 03/22/23 12:35 Resp 18 03/22/23 12:35 BP 108/65 03/22/23 12:35 Pulse Ox 98 03/22/23 12:35 FiO2 21 03/16/23 08:18 Intake & Output 03/21/23 03/22/23 03/22/23 18:59 06:59 18:59 Output Total 500 700 Balance -500 -700 Output: Urine 500 700 Other: Voiding Method Indwelling Catheter Indwelling Catheter Indwelling Catheter # Bowel Movements 1 1 - Exam -GENERAL: The patient is alert and oriented x3, not in any acute distress. Obese HEENT: Pupils are round and equally reacting to light. EOMI. No scleral icterus. No conjunctival pallor. Normocephalic, atraumatic. No pharyngeal erythema. No thyromegaly. CARDIOVASCULAR: S1 and S2 present. No murmurs, rubs, or gallops. PULMONARY: Chest is clear to auscultation, no wheezing , no crackles. ABDOMEN: Soft, nontender, nondistended, normoactive bowel sounds. No palpable organomegaly. MUSCULOSKELETAL: No joint swelling or deformity. EXTREMITIES: No cyanosis, clubbing, or pedal edema. NEUROLOGICAL: Gross neurological examination did not reveal any focal deficits. SKIN: No rashes. no petechiae. - Labs CBC & Chem 7: 03/22/23 05:54 03/22/23 05:54 Labs: Abnormal Lab Results - Last 24 Hours (Table) 03/22/23 03/22/23 Range/Units 05:54 05:54 RBC 2.95 L (4.40-5.60) X 10*6/uL Hgb 8.2 L (13.0-17.0) d/dL Hct 27.2 L (39.6-50.0) % MCHC 30.1 L (32.0-37.0) d/dL RDW 17.6 H (11.5-14.5) % MPV 9.3 L (9.5-12.2) FL Lymphocytes # 0.23 L (0.90-5.00) X 10*3/uL Eosinophils # 0.03 L (0.04-0.35) X 10*3/uL NRBC/100 WBC Diff 0.03 H (0.00-0.01) X 10*3/uL BUN/Creatinine Ratio 23.00 H (12.00-20.00) Ratio Glucose 138 H (70-110) mg/dL Calcium 7.6 L (8.7-10.3) mg/dL Total Bilirubin 0.2 L (0.3-1.2) mg/dL Alkaline Phosphatase 518 H (41-126) U/L Total Protein 5.8 L (6.2-8.2) d/dL Albumin 3.4 L (3.8-4.9) d/dL Albumin/Globulin Ratio 1.42 L (1.60-3.17) Ratio Assessment and Plan Assessment: Metastatic prostate cancer to the bone including both hip areas Subacute/chronic right hip fracture, pathological fracture Metastatic disease to the left hip Chronic anemia History of DVT on blood thinner Eliquis History of coronary artery disease Hyperlipidemia Hyperdense History of peripheral vascular disease Plan: Continue with radiotherapy Continue with Eliquis Continue with prednisone and aspirin Hematology/oncology team on the case Orthopedic team signed off Pulmonary and put is appreciated Labs and medication were reviewed.. Continue same treatment. Continue with symptomatic treatment. Resume home medication. Monitor labs and vitals. DVT and GI prophylaxis. Further recommendations as per clinical course of the patient DVT prophylaxis: Eliquis GI Prophylaxis: Pepcid PT/OT: Pending Prognosis is guarded
[2023-03-22] MEDS: ATORVASTATIN 20 MG TAB PO SCH (22:04)
[2023-03-23] MEDS: IPRATROPIUM-ALBUTEROL 3 ML NEB INHALATION SCH ×4 (00:41→20:07)
[2023-03-23] MEDS: HYDROmorphone 1 MG/ML 1 ML SYRINGE IVP PRN ×5 (01:35→21:39)
[2023-03-23] MEDS: carvediloL 12.5 MG TAB PO SCH ×2 (08:08→18:05)
[2023-03-23] MEDS: ASPIRIN 81 MG PO SCH (08:08)
[2023-03-23] MEDS: PSYLLIUM HUSK 100% 6 GM PACKET PO SCH ×2 (08:09→21:42)
[2023-03-23] MEDS: BICALUTAMIDE 50 MG TAB PO SCH (08:09)
[2023-03-23] MEDS: methocarbamoL 500 MG TAB PO SCH ×4 (08:09→21:41)
[2023-03-23] MEDS: ALPRAZolam 0.5 MG TAB PO SCH ×2 (08:09→21:42)
[2023-03-23] MEDS: predniSONE 5 MG TAB PO SCH ×2 (08:09→21:42)
[2023-03-23] MEDS: APIXABAN 5 MG TAB PO SCH ×2 (08:09→21:42)
[2023-03-23] MEDS: MAGNESIUM OXIDE 400 MG TAB PO SCH ×2 (08:09→21:42)
[2023-03-23] MEDS: THIAMINE 100 MG TAB PO SCH (08:09)
[2023-03-23] MEDS: SENNOSIDES-DOCUSATE SODIUM 1 EACH TAB PO SCH ×2 (08:09→21:42)
[2023-03-23] MEDS: FAMOTIDINE 20 MG TAB PO SCH ×2 (08:09→21:41)
[2023-03-23] MEDS: SYMBICORT 160-4.5 MCG INHALER INHALATION SCH ×2 (08:51→20:07)
--- NOTE | 2023-03-23 12:07 | P.PN ---
Subjective Progress Note Date: 03/23/23 Principal diagnosis: Metastatic prostate cancer, urinary retention The patient continues to receive bicalutamide for his prostate cancer. He also received Zometa, as well as palliative radiation therapy. He was straight catheterized with return of 700 mL of urine. Subsequently, a Benjamin catheter was placed with return of 1400 mL of urine. The catheter remains in place. He s tates that his legs are much stronger, and his only current complaint is diarrhea. Objective - Vital Signs Vital signs: Vital Signs Temp 98.5 F 03/23/23 07:49 Pulse 85 03/23/23 09:00 Resp 32 H 03/23/23 07:49 BP 113/57 03/23/23 07:49 Pulse Ox 95 03/23/23 07:49 FiO2 21 03/16/23 08:18 Intake & Output 03/22/23 03/23/23 03/23/23 18:59 06:59 18:59 Output Total 450 500 Balance -450 -500 Output: Urine 450 500 Other: Voiding Method Indwelling Catheter Indwelling Catheter Indwelling Catheter # Voids 0 # Bowel Movements 1 2 - Constitutional General appearance: Present: average body habitus, no acute distress - Psychiatric Psychiatric: Present: A&O x's 3 - Labs CBC & Chem 7: 03/22/23 05:54 03/22/23 05:54 Assessment and Plan Assessment: Patient has been confirmed to be in urinary retention secondary to locally advanced and metastatic prostate cancer. (1) Malignant neoplasm of prostate Current Visit: Yes Status: Acute Code(s): C61 - MALIGNANT NEOPLASM OF PROSTATE SNOMED Code(s): 485056904 (2) Secondary malignant neoplasm of bone Current Visit: Yes Status: Acute Code(s): C79.51 - SECONDARY MALIGNANT NEOPLASM OF BONE SNOMED Code(s): 24649079 (3) Poor urinary stream Current Visit: Yes Status: Acute Code(s): R39.12 - POOR URINARY STREAM SNOMED Code(s): 595358325 Plan: - Continue bicalutamide. - Continue Benjamin catheter drainage. - Would begin Lupron. - Patient will be discharged home with the Benjamin catheter. He will be given a voiding trial once androgen deprivation therapy has been initiated.
--- NOTE | 2023-03-23 16:16 | P.PN ---
Subjective This is a pleasant 72 years old male with multiple medical problems presents because of his metastatic prostate cancer disease. He is known to metastasize to the bone and patient is currently presents with bilateral hip pain. Patient is already been evaluated by orthopedic team. He was found to have metastatic bone with pathological fracture to the right hip but this looks subacute/chronic per orthopedic physician and the recommend patient follow up with orthopedic oncology team as an outpatient. What oncology team also following with the patient very closely and he was already started on a treatment with bicultamide . 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 Continue with several laxative if no improvement by tomorrow we'll consider enema. Pulmonary/oncology team of the case patient this morning looks relaxed pleasant content from some pain on both Area but stated that most of the time and this is addressed. Denies any other specific illness. 03/23/2023 His constipation is improving and he has big large bowel movement and he feels better Pain in both hips still there, better tolerated and he is undergoing radiothe rapy next dose on Saturday as per patient Benjamin catheter is in a Place and urology following. Patient will be discharged with a Benjamin and he'll require outpatient follow-up No other new complaints. Hemodynamically stable Objective - Vital Signs Vital signs: Vital Signs Temp 98.5 F 03/23/23 07:49 Pulse 85 03/23/23 09:00 Resp 20 03/23/23 08:01 BP 113/57 03/23/23 07:49 Pulse Ox 95 03/23/23 07:49 FiO2 21 03/16/23 08:18 Intake & Output 03/22/23 03/23/23 03/23/23 18:59 06:59 18:59 Output Total 450 500 Balance -450 -500 Output: Urine 450 500 Other: Voiding Method Indwelling Catheter Indwelling Catheter Indwelling Catheter # Voids 0 # Bowel Movements 1 2 - Exam -GENERAL: The patient is alert and oriented x3, not in any acute distress. Obese HEENT: Pupils are round and equally reacting to light. EOMI. No scleral icterus. No conjunctival pallor. Normocephalic, atraumatic. No pharyngeal erythema. No thyromegaly. CARDIOVASCULAR: S1 and S2 present. No murmurs, rubs, or gallops. PULMONARY: Chest is clear to auscultation, no wheezing , no crackles. ABDOMEN: Soft, nontender, nondistended, normoactive bowel sounds. No palpable organomegaly. MUSCULOSKELETAL: No joint swelling or deformity. EXTREMITIES: No cyanosis, clubbing, or pedal edema. NEUROLOGICAL: Gross neurological examination did not reveal any focal deficits. SKIN: No rashes. no petechiae. - Labs CBC & Chem 7: 03/22/23 05:54 03/22/23 05:54 Assessment and Plan Assessment: Metastatic prostate cancer to the bone including both hip areas Subacute/chronic right hip fracture, pathological fracture Metastatic disease to the left hip Chronic anemia History of DVT on blood thinner Eliquis History of coronary artery disease Hyperlipidemia Hyperdense History of peripheral vascular disease Plan: Continue with radiotherapy Continue with Eliquis Continue with prednisone and aspirin Hematology/oncology team on the case Orthopedic team signed off Pulmonary and put is appreciated Labs and medication were reviewed.. Continue same treatment. Continue with symptomatic treatment. Resume home medication. Monitor labs and vitals. DVT and GI prophylaxis. Further recommendations as per clinical course of the patient DVT prophylaxis: Eliquis GI Prophylaxis: Pepcid PT/OT: Pending Prognosis is guarded
[2023-03-23] MEDS: ATORVASTATIN 20 MG TAB PO SCH (21:42)
[2023-03-24] MEDS: HYDROmorphone 1 MG/ML 1 ML SYRINGE IVP PRN ×6 (00:44→21:34)
[2023-03-24] MEDS: IPRATROPIUM-ALBUTEROL 3 ML NEB INHALATION SCH ×4 (01:50→20:17)
[2023-03-24] MEDS: SYMBICORT 160-4.5 MCG INHALER INHALATION SCH ×2 (07:34→20:17)
[2023-03-24] MEDS: PSYLLIUM HUSK 100% 6 GM PACKET PO SCH ×2 (07:45→21:29)
[2023-03-24] MEDS: SENNOSIDES-DOCUSATE SODIUM 1 EACH TAB PO SCH ×2 (07:46→21:29)
[2023-03-24] MEDS: methocarbamoL 500 MG TAB PO SCH ×4 (07:49→21:29)
[2023-03-24] MEDS: ALPRAZolam 0.5 MG TAB PO SCH ×2 (07:49→21:29)
[2023-03-24] MEDS: APIXABAN 5 MG TAB PO SCH ×2 (07:50→21:29)
[2023-03-24] MEDS: ASPIRIN 81 MG PO SCH (07:50)
[2023-03-24] MEDS: FAMOTIDINE 20 MG TAB PO SCH ×2 (07:50→21:29)
[2023-03-24] MEDS: MAGNESIUM OXIDE 400 MG TAB PO SCH ×2 (07:50→21:29)
[2023-03-24] MEDS: BICALUTAMIDE 50 MG TAB PO SCH (07:50)
[2023-03-24] MEDS: predniSONE 5 MG TAB PO SCH ×2 (07:50→21:28)
[2023-03-24] MEDS: carvediloL 12.5 MG TAB PO SCH ×2 (07:50→17:52)
[2023-03-24] MEDS: THIAMINE 100 MG TAB PO SCH (07:50)
--- NOTE | 2023-03-24 13:14 | P.PN ---
Subjective This is a pleasant 72 years old male with multiple medical problems presents because of his metastatic prostate cancer disease. He is known to metastasize to the bone and patient is currently presents with bilateral hip pain. Patient is already been evaluated by orthopedic team. He was found to have metastatic bone with pathological fracture to the right hip but this looks subacute/chronic per orthopedic physician and the recommend patient follow up with orthopedic oncology team as an outpatient. What oncology team also following with the patient very closely and he was already started on a treatment with bicultamide . 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 Continue with several laxative if no improvement by tomorrow we'll consider enema. Pulmonary/oncology team of the case patient this morning looks relaxed pleasant content from some pain on both Area but stated that most of the time and this is addressed. Denies any other specific illness. 03/23/2023 His constipation is improving and he has big large bowel movement and he feels better Pain in both hips still there, better tolerated and he is undergoing radiothe rapy next dose on Saturday as per patient Benjamin catheter is in a Place and urology following. Patient will be discharged with a Benjamin and he'll require outpatient follow-up No other new complaints. Hemodynamically stable 03/24/2023 Patient clinically doing well Hip pain controlled He is having bowel movement and he wants to keep the same laxative No new complaint Possible radiotherapy to the hip tomorrow Objective - Vital Signs Vital signs: Vital Signs Temp 98.8 F 03/24/23 11:44 Pulse 80 03/24/23 12:19 Resp 17 03/24/23 11:44 BP 118/63 03/24/23 11:44 Pulse Ox 99 03/24/23 11:44 FiO2 21 03/16/23 08:18 Intake & Output 03/23/23 03/24/23 03/24/23 18:59 06:59 18:59 Output Total 550 650 Balance -550 -650 Output: Urine 550 650 Other: Voiding Method Indwelling Catheter Indwelling Catheter Indwelling Catheter # Voids 0 # Bowel Movements 1 1 - Exam -GENERAL: The patient is alert and oriented x3, not in any acute distress. Obese HEENT: Pupils are round and equally reacting to light. EOMI. No scleral icterus. No conjunctival pallor. Normocephalic, atraumatic. No pharyngeal erythema. No thyromegaly. CARDIOVASCULAR: S1 and S2 present. No murmurs, rubs, or gallops. PULMONARY: Chest is clear to auscultation, no wheezing , no crackles. ABDOMEN: Soft, nontender, nondistended, normoactive bowel sounds. No palpable organomegaly. MUSCULOSKELETAL: No joint swelling or deformity. EXTREMITIES: No cyanosis, clubbing, or pedal edema. NEUROLOGICAL: Gross neurological examination did not reveal any focal deficits. SKIN: No rashes. no petechiae. - Labs CBC & Chem 7: 03/22/23 05:54 03/22/23 05:54 Assessment and Plan Assessment: Metastatic prostate cancer to the bone including both hip areas Subacute/chronic right hip fracture, pathological fracture Metastatic disease to the left hip Chronic anemia History of DVT on blood thinner Eliquis History of coronary artery disease Hyperlipidemia Hyperdense History of peripheral vascular disease Plan: Continue with radiotherapy Continue with Eliquis Continue with prednisone and aspirin Hematology/oncology team on the case Orthopedic team signed off Pulmonary and put is appreciated Labs and medication were reviewed.. Continue same treatment. Continue with symptomatic treatment. Resume home medication. Monitor labs and vitals. DVT and GI prophylaxis. Further recommendations as per clinical course of the patient DVT prophylaxis: Eliquis GI Prophylaxis: Pepcid PT/OT: Pending Prognosis is guarded
[2023-03-24] MEDS: ONDANSETRON 4 MG/2 ML VIAL IVP PRN (16:23)
[2023-03-24] MEDS: ATORVASTATIN 20 MG TAB PO SCH (21:29)
[2023-03-25] MEDS: IPRATROPIUM-ALBUTEROL 3 ML NEB INHALATION SCH ×4 (01:06→19:45)
[2023-03-25] MEDS: HYDROmorphone 1 MG/ML 1 ML SYRINGE IVP PRN ×6 (02:39→20:59)
[2023-03-25] MEDS: ONDANSETRON 4 MG/2 ML VIAL IVP PRN ×3 (05:52→18:06)
[2023-03-25] MEDS: SYMBICORT 160-4.5 MCG INHALER INHALATION SCH ×2 (07:32→19:45)
[2023-03-25] MEDS: predniSONE 5 MG TAB PO SCH ×2 (08:58→20:58)
[2023-03-25] MEDS: THIAMINE 100 MG TAB PO SCH (08:58)
[2023-03-25] MEDS: BICALUTAMIDE 50 MG TAB PO SCH (08:58)
[2023-03-25] MEDS: PSYLLIUM HUSK 100% 6 GM PACKET PO SCH ×2 (08:59→20:58)
[2023-03-25] MEDS: ALPRAZolam 0.5 MG TAB PO SCH ×2 (08:59→20:58)
[2023-03-25] MEDS: FAMOTIDINE 20 MG TAB PO SCH ×2 (08:59→20:58)
[2023-03-25] MEDS: ASPIRIN 81 MG PO SCH (08:59)
[2023-03-25] MEDS: APIXABAN 5 MG TAB PO SCH ×2 (08:59→20:58)
[2023-03-25] MEDS: carvediloL 12.5 MG TAB PO SCH ×2 (08:59→17:57)
[2023-03-25] MEDS: MAGNESIUM OXIDE 400 MG TAB PO SCH ×2 (08:59→20:58)
[2023-03-25] MEDS: methocarbamoL 500 MG TAB PO SCH ×4 (08:59→20:58)
[2023-03-25] MEDS: SENNOSIDES-DOCUSATE SODIUM 1 EACH TAB PO SCH ×2 (09:00→20:59)
--- NOTE | 2023-03-25 15:14 | P.PN ---
Subjective Progress Note Date: 03/25/23 I am seeing this patient in consultation today 03/12/2023 after the patient presented to the emergency room 2 days ago with intractable left thigh and back pain. Patient is a 72-year-old white male with past medical history significant for known squamous cell lung carcinoma diagnosed March 2020, s/p chemo and radiation, poor tolerance to immunotherapy, right-sided pleural effusion with previous thoracentesis, chronic obstructive pulmonary disease, congestive heart failure, hypertension, chronic back pain, peripheral vascular occlusive disease, coronary artery disease with previous stent, and is an ex smoker. Last month, the patient was admitted for left thigh pain. CT of the pelvis and left femur showed focal sclerosis in the region of the greater trochanter of the right hip with cortical discontinuity suspicious for metastatic lesion, there was also vague sclerosis involving the left iliac wing which could reflect a site of additional sclerotic metastatic lesion. There was also a significant enlargement of the prostate gland with glandular irregularity measuring 8.5 x 6.5 cm. The patient was transferred out, and reportedly had biopsies performed at [facility]. I do not have these reports, but the patient states that it was positive for metastatic prostate cancer. Patient presented to the emergency room 2 days ago with a primary complaint of intractable pain. The pain is predominantly on his left hip and lower back. He has had trouble walking. Patient has been reportedly started on Casodex for his prostate CA. His oncologist is Dr. Ignacio. Patient is currently sitting up in bed, on room air, in no acute distress. Patient actually denies any significant pulmonary complaints. Chest x-ray on arrival shows a chronic right-sided pleural effusion and possible superimposed infiltrate. Findings appear chronic in my opinion. There is also an destructive left-sided rib lesion noted. CBC on arrival did not show any leukocytosis. WBC count 5.6, hemoglobin 9.4, hematocrit 29.7, platelets 219. BMP on arrival shows sodium 135, potassium 5.1, chloride 103, s nani bicarb 22, BUN 24, creatinine 0.65, glucose 125. Negative for occult blood. Procalcitonin level was mildly elevated at 0.14. Patient was empirically placed on Rocephin and azithromycin. Patient is afebrile. He is admitted to the general medical floor. The patient is seen today 03/13/2023 in follow-up on the regular medical floor. He is currently resting in bed. Awake and alert in no acute distress. He denies any significant pain. He is maintaining good O2 saturations in the 90s on room air. There was some concern regarding possible right lower lobe infiltrate. He's been on azithromycin which she completed. Currently on ceftriaxone. His pro calcitonin was 0.14. CT scan of the abdomen and pelvis revealed evidence of metastatic changes in the left femoral neck and right gr eater trochanter. There is increased enlargement of the para aortic and bilateral iliac chain lymph nodes with worsening metastasis. Redemonstrated large lobulated soft tissue mass in the region of the prostate gland measuring up to 7.7 cm. Likely likely representing metastatic disease. The patient is seen today 03/14/2023 in follow-up on the regular medical floor. He is currently sitting up in bed. Awake and alert in no acute distress. He is maintaining O2 saturations in the 90s on room air. He is currently on Pulmicort and Perforomist inhalations, DuoNeb inhalations, antibiotics in the form of Augmentin. The plan is for palliative radiation to his left hip, pelvis and lower back. He has been seen by orthopedics as well. No surgical interventions planned. The patient is seen today 03/15/2023 in follow-up on the regular medical floor. He is awake and alert in no acute distress. Resting fairly comfortably in bed. If he continues to maintain good O2 saturations in the 90s on room air. He is continued on DuoNeb inhalations, Pulmicort, prednisone taper. Anticoagulated wi th Eliquis. Antibiotics in the form of Augmentin. The patient is seen today 03/25/2023 in follow-up on the regular medical floor. He is resting in bed. Awake and alert in no acute distress. He is maintaining O2 saturations in the 90s on room air. He's afebrile. Hemodynamically stable. He states his bilateral hip pain is controlled. He remains on DuoNeb inhalations, Symbicort, prednisone. He is on Casodex. Anticoagulated with Eliquis. Objective - Vital Signs Vital signs: Vital Signs Temp 98.4 F 03/25/23 12:24 Pulse 92 03/25/23 12:24 Resp 18 03/25/23 12:24 BP 104/60 03/25/23 12:24 Pulse Ox 94 L 03/25/23 12:24 FiO2 21 03/16/23 08:18 Intake & Output 03/24/23 03/25/23 03/25/23 18:59 06:59 18:59 Output Total 525 500 Balance -525 -500 Output: Urine 525 500 Other: Voiding Method Indwelling Catheter Bedside Commode Bedside Commode Indwelling Catheter Indwelling Catheter # Bowel Movements 2 1 1 - Exam GENERAL EXAM: Alert, cooperative 72-year-old male, on room air. Fairly comfortable in no acute distress HEAD: Normocephalic and atraumatic EYES: Normal reaction of pupils, equal size. NOSE: Clear with pink turbinates. THROAT: No erythema or exudates. NECK: No masses, no JVD. CHEST: No chest wall deformity. LUNGS: Equal air entry with no crackles, wheeze, rhonchi or dullness. No conversational dyspnea. CVS: S1 and S2 normal with no audible murmur, regular rhythm. No extra heart sounds ABDOMEN: Obese abdomen, no hepatosplenomegaly, active bowel sounds, no guarding or rigidity. SPINE: No scoliosis or deformity SKIN: No rashes CENTRAL NERVOUS SYSTEM: Left lower extremity weakness. No other focal deficits. EXTREMITIES: There is no peripheral edema. No clubbing, or cyanosis. Peripheral pulses are intact. - Labs CBC & Chem 7: 03/22/23 05:54 03/22/23 05:54 Assessment and Plan Assessment: Intractable left thigh and lower back pain. CT scan of the abdomen and pelvis revealed evidence of metastatic changes in the left femoral neck and right greater trochanter. There is increased enlargement of the para aortic and bi lateral iliac chain lymph nodes with worsening metastasis. Redemonstrated large lobulated soft tissue mass in the region of the prostate gland measuring up to 7.7 cm. Likely representing metastatic disease. He did start palliative radiation to the left hip, pelvis and lower back last week Recent diagnosis of prostate cancer with osseous metastasis. Initiated on Casodex History of squamous cell lung cancer with previous chemo/radiation, intolerant immunotherapy Chronic and recurrent right-sided pleural effusion, most recent thoracentesis done on 03/25/2022. Negative for cytologically malignant cells at that time. Chest x-ray this admission shows a right lower lobe effusion and possible superimposed infiltrate. There were destructive left sided rib lesions. Chronic obstructive pulmonary disease, stable Normocytic normochromic anemia, no obvious evidence of acute blood loss Coronary artery disease with previous stent placement Hyperlipidemia Benign essential hypertension Peripheral vascular occlusive disease. History DVT, anticoagulated on Eliquis Ex smoker Plan: The patient was seen and evaluated Medications reviewed Currently stable and on room air Continue Symbicort and DuoNeb inhalations Receiving palliative radiation to the left hip, pelvis and lower back The patient needs to remain in the hospital for his treatments for 10 days Plan is for discharge to subacute rehabilitation later this week I have personally seen and examined the patient, performed the documentation and the assessment and plan as written. Number of minutes spent on the visit: 10.
--- NOTE | 2023-03-25 15:37 | P.PN ---
Subjective Progress Note Date: 03/25/23 Principal diagnosis: pneumonia, intractable pain, history of metastatic prostate cancer At today's visit patient is resting comfortable in bed. Patient received radiation treatment today. Reports bilateral hip and lower back pain from lying on procedure table. Patient is reporting improvement in mobility and strength in lower extremities Objective - Vital Signs Vital signs: Vital Signs Temp 98.4 F 03/25/23 12:24 Pulse 92 03/25/23 12:24 Resp 18 03/25/23 12:24 BP 104/60 03/25/23 12:24 Pulse Ox 94 L 03/25/23 12:24 FiO2 21 03/16/23 08:18 Intake & Output 03/24/23 03/25/23 03/25/23 18:59 06:59 18:59 Output Total 525 500 Balance -525 -500 Output: Urine 525 500 Other: Voiding Method Indwelling Catheter Bedside Commode Bedside Commode Indwelling Catheter Indwelling Catheter # Bowel Movements 2 1 1 - Constitutional General appearance: Present: average body habitus, no acute distress - EENT Eyes: Present: anicteric sclerae, EOMI ENT: Present: hearing grossly normal - Respiratory Details: breathing is even and unlabored - Cardiovascular Details: skin warm and dry - Integumentary Integumentary: Absent: cyanotic - Musculoskeletal Musculoskeletal Comment(s): bilateral lower extremity weakness - Psychiatric Psychiatric: Present: A&O x's 3, appropriate affect, intact judgment & insight - Labs CBC & Chem 7: 03/22/23 05:54 03/22/23 05:54 Assessment and Plan (1) Intractable pain Current Visit: Yes Status: Acute Priority: High Code(s): R52 - PAIN, UN SPECIFIED SNOMED Code(s): 35410501 (2) Malignant neoplasm of prostate Current Visit: Yes Status: Acute Priority: High Code(s): C61 - MALIGNANT NEOPLASM OF PROSTATE SNOMED Code(s): 243116922 (3) Pneumonia Current Visit: Yes Status: Acute Priority: High Code(s): J18.9 - PNEUMONIA, UNSPECIFIED ORGANISM SNOMED Code(s): 903581898 Plan: Prostate cancer metastatic to the bone, Intractable pain -New diagnosis, pathology from bone biopsy taken at [facility] -Casodex hormonal treatment initiated for initial treatment of metastatic prostate cancer, cont -Painful bone metastases in the left hip/femur. CT pelvis and femur reports reviewed, mention of possible pathological fracture on the right. Patient has started radiation for both -Zometa x 1 for bone mets -Orthopedic input appreciated for PT/OT wt bearing recs -Pain management following. Refusing PO pain meds, stating they do not help control pain. Continues on IV pain meds with adequate control -Multiple medications for prevention of narcotic-induced constipation. Case previously discussed with Attending. Plan is to complete palliative radiation to painful bone metastases before transfer to rehabilitation facility. Follow up with Medical Oncologist will be scheduled once we know pt is going to be discharged and approx when he will be discharged from rehab. PSMA PET scan will be scheduled once patient is out of the hospital and has completed rehabilitation. Cont casodex for now, further treatment options will be discussed once pt discharged from rehab. Non-small cell lung cancer -Definitive treatment 2020. -did not tolerate maintenance IO, last treatment November 2020 -Has been on f/u since, no evidence of disease recurrence -He is due for Q 3 mo f/u imaging-will await DC plans and order after -Pt had hemoptysis x 1 this admit, none since -Completed treatment for COPD exacerbation, per Pulmonary recs
[2023-03-25] MEDS: ATORVASTATIN 20 MG TAB PO SCH (20:58)
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
[2023-03-26] MEDS: IPRATROPIUM-ALBUTEROL 3 ML NEB INHALATION SCH ×4 (01:27→19:25)
[2023-03-26] MEDS: HYDROmorphone 1 MG/ML 1 ML SYRINGE IVP PRN ×5 (01:54→20:15)
[2023-03-26] MEDS: FAMOTIDINE 20 MG TAB PO SCH ×2 (06:33→20:19)
[2023-03-26] MEDS: SYMBICORT 160-4.5 MCG INHALER INHALATION SCH ×2 (07:27→19:25)
[2023-03-26] MEDS: carvediloL 12.5 MG TAB PO SCH ×2 (09:20→18:08)
[2023-03-26] MEDS: BICALUTAMIDE 50 MG TAB PO SCH (09:21)
[2023-03-26] MEDS: ALPRAZolam 0.5 MG TAB PO SCH ×2 (09:21→20:21)
[2023-03-26] MEDS: MAGNESIUM OXIDE 400 MG TAB PO SCH ×2 (09:21→20:20)
[2023-03-26] MEDS: methocarbamoL 500 MG TAB PO SCH ×4 (09:21→20:23)
[2023-03-26] MEDS: ASPIRIN 81 MG PO SCH (09:21)
[2023-03-26] MEDS: APIXABAN 5 MG TAB PO SCH ×2 (09:21→20:21)
[2023-03-26] MEDS: predniSONE 5 MG TAB PO SCH ×2 (09:21→20:21)
[2023-03-26] MEDS: THIAMINE 100 MG TAB PO SCH (09:21)
[2023-03-26] MEDS: PSYLLIUM HUSK 100% 6 GM PACKET PO SCH ×2 (09:27→20:22)
[2023-03-26] MEDS: SENNOSIDES-DOCUSATE SODIUM 1 EACH TAB PO SCH ×2 (09:27→20:22)
[2023-03-26] MEDS: ONDANSETRON 4 MG/2 ML VIAL IVP PRN ×2 (10:21→16:04)
--- NOTE | 2023-03-26 12:07 | P.PN ---
Subjective Progress Note Date: 03/26/23 I am seeing this patient in consultation today 03/12/2023 after the patient presented to the emergency room 2 days ago with intractable left thigh and back pain. Patient is a 72-year-old white male with past medical history significant for known squamous cell lung carcinoma diagnosed March 2020, s/p chemo and radiation, poor tolerance to immunotherapy, right-sided pleural effusion with previous thoracentesis, chronic obstructive pulmonary disease, congestive heart failure, hypertension, chronic back pain, peripheral vascular occlusive disease, coronary artery disease with previous stent, and is an ex smoker. Last month, the patient was admitted for left thigh pain. CT of the pelvis and left femur showed focal sclerosis in the region of the greater trochanter of the right hip with cortical discontinuity suspicious for metastatic lesion, there was also vague sclerosis involving the left iliac wing which could reflect a site of additional sclerotic metastatic lesion. There was also a significant enlargement of the prostate gland with glandular irregularity measuring 8.5 x 6.5 cm. The patient was transferred out, and reportedly had biopsies performed at [facility]. I do not have these reports, but the patient states that it was positive for metastatic prostate cancer. Patient presented to the emergency room 2 days ago with a primary complaint of intractable pain. The pain is predominantly on his left hip and lower back. He has had trouble walking. Patient has been reportedly started on Casodex for his prostate CA. His oncologist is Dr. Ignacio. Patient is currently sitting up in bed, on room air, in no acute distress. Patient actually denies any significant pulmonary complaints. Chest x-ray on arrival shows a chronic right-sided pleural effusion and possible superimposed infiltrate. Findings appear chronic in my opinion. There is also an destructive left-sided rib lesion noted. CBC on arrival did not show any leukocytosis. WBC count 5.6, hemoglobin 9.4, hematocrit 29.7, platelets 219. BMP on arrival shows sodium 135, potassium 5.1, chloride 103, s nani bicarb 22, BUN 24, creatinine 0.65, glucose 125. Negative for occult blood. Procalcitonin level was mildly elevated at 0.14. Patient was empirically placed on Rocephin and azithromycin. Patient is afebrile. He is admitted to the general medical floor. The patient is seen today 03/13/2023 in follow-up on the regular medical floor. He is currently resting in bed. Awake and alert in no acute distress. He denies any significant pain. He is maintaining good O2 saturations in the 90s on room air. There was some concern regarding possible right lower lobe infiltrate. He's been on azithromycin which she completed. Currently on ceftriaxone. His pro calcitonin was 0.14. CT scan of the abdomen and pelvis revealed evidence of metastatic changes in the left femoral neck and right gr eater trochanter. There is increased enlargement of the para aortic and bilateral iliac chain lymph nodes with worsening metastasis. Redemonstrated large lobulated soft tissue mass in the region of the prostate gland measuring up to 7.7 cm. Likely likely representing metastatic disease. The patient is seen today 03/14/2023 in follow-up on the regular medical floor. He is currently sitting up in bed. Awake and alert in no acute distress. He is maintaining O2 saturations in the 90s on room air. He is currently on Pulmicort and Perforomist inhalations, DuoNeb inhalations, antibiotics in the form of Augmentin. The plan is for palliative radiation to his left hip, pelvis and lower back. He has been seen by orthopedics as well. No surgical interventions planned. The patient is seen today 03/15/2023 in follow-up on the regular medical floor. He is awake and alert in no acute distress. Resting fairly comfortably in bed. If he continues to maintain good O2 saturations in the 90s on room air. He is continued on DuoNeb inhalations, Pulmicort, prednisone taper. Anticoagulated wi th Eliquis. Antibiotics in the form of Augmentin. The patient is seen today 03/25/2023 in follow-up on the regular medical floor. He is resting in bed. Awake and alert in no acute distress. He is maintaining O2 saturations in the 90s on room air. He's afebrile. Hemodynamically stable. He states his bilateral hip pain is controlled. He remains on DuoNeb inhalations, Symbicort, prednisone. He is on Casodex. Anticoagulated with Eliquis. The patient is seen today 03/26/2023 follow-up on the regular medical floor. He is awake and alert in no acute distress. Occasionally confused. Continues to maintain good O2 saturations in the mid 90s on room air. He's been afebrile. Hemodynamically stable. He continues to see palliative radiation therapy for his metastatic prostate cancer to the bones. He remains on Casodex. Anticoagulated with Eliquis. Continued on bronchodilators. Continued on Prednisone. Objective - Vital Signs Vital signs: Vital Signs Temp 97.8 F 03/26/23 07:48 Pulse 90 03/26/23 07:48 Resp 18 03/26/23 07:48 BP 144/66 03/26/23 07:48 Pulse Ox 97 03/26/23 07:48 FiO2 21 03/16/23 08:18 Intake & Output 03/25/23 03/26/23 03/26/23 18:59 06:59 18:59 Intake Total 590 Output Total 550 600 Balance -550 -10 Intake: Oral 590 Output: Urine 550 600 Other: Voiding Method Bedside Commode Bedside Commode Indwelling Catheter Indwelling Catheter # Voids 0 # Bowel Movements 1 6 1 - Exam GENERAL EXAM: Alert, cooperative 72-year-old male, on room air. Fairly comfortable in no acute distress HEAD: Normocephalic and atraumatic EYES: Normal reaction of pupils, equal size. NOSE: Clear with pink turbinates. THROAT: No erythema or exudates. NECK: No masses, no JVD. CHEST: No chest wall deformity. LUNGS: Equal air entry with no crackles, wheeze, rhonchi or dullness. No conversational dyspnea. CVS: S1 and S2 normal with no audible murmur, regular rhythm. No extra heart sounds ABDOMEN: Obese abdomen, no hepatosplenomegaly, active bowel sounds, no guarding or rigidity. SPINE: No scoliosis or deformity SKIN: No rashes CENTRAL NERVOUS SYSTEM: Left lower extremity weakness. No other focal deficits. EXTREMITIES: Bilateral hip pain. There is no peripheral edema. No clubbing, or cyanosis. Peripheral pulses are intact. - Labs CBC & Chem 7: 03/22/23 05:54 03/22/23 05:54 Assessment and Plan Assessment: Intractable left thigh and lower back pain. CT scan of the abdomen and pelvis revealed evidence of metastatic changes in the left femoral neck and right greater trochanter. There is increased enlargement of the para aortic and bilateral iliac chain lymph nodes with worsening metastasis. Redemonstrated large lobulated soft tissue mass in the region of the prostate gland measuring up to 7.7 cm. Likely representing metastatic disease. He did start palliative radiation to the left hip, pelvis and lower back last week. Last dose scheduled for 03/28/2023 Recent diagnosis of prostate cancer with osseous metastasis. Initiated on Casodex History of squamous cell lung cancer with previous chemo/radiation, intolerant to immunotherapy Chronic and recurrent right-sided pleural effusion, most recent thoracentesis done on 03/25/2022. Negative for cytologically malignant cells at that time. Chest x-ray this admission shows a right lower lobe effusion and possible superimposed infiltrate. There were destructive left sided rib lesions. Chronic obstructive pulmonary disease, stable Normocytic normochromic anemia, no obvious evidence of acute blood loss Coronary artery disease with previous stent placement Hyperlipidemia Benign essential hypertension Peripheral vascular occlusive disease. History DVT, anticoagulated on Eliquis Ex smoker Plan: The patient was seen and evaluated Medications reviewed Currently stable and on room air Plan is for discharge to subacute rehabilitation later this week I have personally seen and examined the patient, performed the documentation and the assessment and plan as written. Number of minutes spent on the visit: 10.
[2023-03-26] MEDS: SIMETHICONE 80 MG CHEWABLE PO PRN ×2 (13:15→20:18)
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
[2023-03-26] MEDS: ATORVASTATIN 20 MG TAB PO SCH (20:21)
[2023-03-27] MEDS: HYDROmorphone 1 MG/ML 1 ML SYRINGE IVP PRN ×2 (00:35→05:27)
[2023-03-27] MEDS: IPRATROPIUM-ALBUTEROL 3 ML NEB INHALATION SCH ×4 (01:27→18:15)
[2023-03-27] MEDS: FAMOTIDINE 20 MG TAB PO SCH ×2 (05:37→21:07)
[2023-03-27] MEDS: SYMBICORT 160-4.5 MCG INHALER INHALATION SCH ×2 (07:31→18:22)
[2023-03-27] MEDS: THIAMINE 100 MG TAB PO SCH (09:13)
[2023-03-27] MEDS: ASPIRIN 81 MG PO SCH (09:13)
[2023-03-27] MEDS: carvediloL 12.5 MG TAB PO SCH ×2 (09:13→18:24)
[2023-03-27] MEDS: APIXABAN 5 MG TAB PO SCH ×2 (09:13→21:07)
[2023-03-27] MEDS: MAGNESIUM OXIDE 400 MG TAB PO SCH ×2 (09:13→21:07)
[2023-03-27] MEDS: ALPRAZolam 0.5 MG TAB PO SCH ×2 (09:13→21:07)
[2023-03-27] MEDS: methocarbamoL 500 MG TAB PO SCH ×4 (09:14→21:07)
[2023-03-27] MEDS: BICALUTAMIDE 50 MG TAB PO SCH (09:14)
[2023-03-27] MEDS: predniSONE 5 MG TAB PO SCH ×2 (09:14→21:07)
[2023-03-27] MEDS: SENNOSIDES-DOCUSATE SODIUM 1 EACH TAB PO SCH ×2 (09:14→21:09)
[2023-03-27] MEDS: PSYLLIUM HUSK 100% 6 GM PACKET PO SCH ×2 (09:15→21:09)
--- NOTE | 2023-03-27 11:51 | P.PN ---
Subjective Progress Note Date: 03/27/23 I am seeing this patient in consultation today 03/12/2023 after the patient presented to the emergency room 2 days ago with intractable left thigh and back pain. Patient is a 72-year-old white male with past medical history significant for known squamous cell lung carcinoma diagnosed March 2020, s/p chemo and radiation, poor tolerance to immunotherapy, right-sided pleural effusion with previous thoracentesis, chronic obstructive pulmonary disease, congestive heart failure, hypertension, chronic back pain, peripheral vascular occlusive disease, coronary artery disease with previous stent, and is an ex smoker. Last month, the patient was admitted for left thigh pain. CT of the pelvis and left femur showed focal sclerosis in the region of the greater trochanter of the right hip with cortical discontinuity suspicious for metastatic lesion, there was also vague sclerosis involving the left iliac wing which could reflect a site of additional sclerotic metastatic lesion. There was also a significant enlargement of the prostate gland with glandular irregularity measuring 8.5 x 6.5 cm. The patient was transferred out, and reportedly had biopsies performed at [facility]. I do not have these reports, but the patient states that it was positive for metastatic prostate cancer. Patient presented to the emergency room 2 days ago with a primary complaint of intractable pain. The pain is predominantly on his left hip and lower back. He has had trouble walking. Patient has been reportedly started on Casodex for his prostate CA. His oncologist is Dr. Ignacio. Patient is currently sitting up in bed, on room air, in no acute distress. Patient actually denies any significant pulmonary complaints. Chest x-ray on arrival shows a chronic right-sided pleural effusion and possible superimposed infiltrate. Findings appear chronic in my opinion. There is also an destructive left-sided rib lesion noted. CBC on arrival did not show any leukocytosis. WBC count 5.6, hemoglobin 9.4, hematocrit 29.7, platelets 219. BMP on arrival shows sodium 135, potassium 5.1, chloride 103, s nani bicarb 22, BUN 24, creatinine 0.65, glucose 125. Negative for occult blood. Procalcitonin level was mildly elevated at 0.14. Patient was empirically placed on Rocephin and azithromycin. Patient is afebrile. He is admitted to the general medical floor. The patient is seen today 03/13/2023 in follow-up on the regular medical floor. He is currently resting in bed. Awake and alert in no acute distress. He denies any significant pain. He is maintaining good O2 saturations in the 90s on room air. There was some concern regarding possible right lower lobe infiltrate. He's been on azithromycin which she completed. Currently on ceftriaxone. His pro calcitonin was 0.14. CT scan of the abdomen and pelvis revealed evidence of metastatic changes in the left femoral neck and right gr eater trochanter. There is increased enlargement of the para aortic and bilateral iliac chain lymph nodes with worsening metastasis. Redemonstrated large lobulated soft tissue mass in the region of the prostate gland measuring up to 7.7 cm. Likely likely representing metastatic disease. The patient is seen today 03/14/2023 in follow-up on the regular medical floor. He is currently sitting up in bed. Awake and alert in no acute distress. He is maintaining O2 saturations in the 90s on room air. He is currently on Pulmicort and Perforomist inhalations, DuoNeb inhalations, antibiotics in the form of Augmentin. The plan is for palliative radiation to his left hip, pelvis and lower back. He has been seen by orthopedics as well. No surgical interventions planned. The patient is seen today 03/15/2023 in follow-up on the regular medical floor. He is awake and alert in no acute distress. Resting fairly comfortably in bed. If he continues to maintain good O2 saturations in the 90s on room air. He is continued on DuoNeb inhalations, Pulmicort, prednisone taper. Anticoagulated wi th Eliquis. Antibiotics in the form of Augmentin. The patient is seen today 03/25/2023 in follow-up on the regular medical floor. He is resting in bed. Awake and alert in no acute distress. He is maintaining O2 saturations in the 90s on room air. He's afebrile. Hemodynamically stable. He states his bilateral hip pain is controlled. He remains on DuoNeb inhalations, Symbicort, prednisone. He is on Casodex. Anticoagulated with Eliquis. The patient is seen today 03/26/2023 follow-up on the regular medical floor. He is awake and alert in no acute distress. Occasionally confused. Continues to maintain good O2 saturations in the mid 90s on room air. He's been afebrile. Hemodynamically stable. He continues to see palliative radiation therapy for his metastatic prostate cancer to the bones. He remains on Casodex. Anticoagulated with Eliquis. Continued on bronchodilators. Continued on Prednisone. The patient is seen today 03/27/2023 in follow-up on the regular medical floor. He is awake and alert. He is confused at times. He is maintaining good O2 saturations up to 100% on room air. Afebrile. Hemodynamically stable. Remains on DuoNeb inhalations, Symbicort, prednisone. Anticoagulated with Eliquis. He is continuing with palliative radiation treatments. Objective - Vital Signs Vital signs: Vital Signs Temp 98.6 F 03/27/23 07:39 Pulse 94 03/27/23 07:41 Resp 20 03/27/23 07:39 BP 123/82 03/27/23 07:39 Pulse Ox 100 03/27/23 07:39 FiO2 21 03/16/23 08:18 Intake & Output 03/26/23 03/27/23 03/27/23 18:59 06:59 18:59 Output Total 900 Balance -900 Output: Urine 900 Other: Voiding Method Bedside Commode Bedside Commode Bedside Commode Indwelling Catheter Indwelling Catheter Indwelling Catheter # Voids 0 # Bowel Movements 1 3 1 - Exam GENERAL EXAM: Alert, 72-year-old male, resting in bed, on room air. Fairly comfortable in no acute distress HEAD: Normocephalic and atraumatic EYES: Normal reaction of pupils, equal size. NOSE: Clear with pink turbinates. THROAT: No erythema or exudates. NECK: No masses, no JVD. CHEST: No chest wall deformity. LUNGS: Equal air entry with no crackles, wheeze, rhonchi or dullness. No conversational dyspnea. CVS: S1 and S2 normal with no audible murmur, regular rhythm. No extra heart sounds ABDOMEN: Obese abdomen, no hepatosplenomegaly, active bowel sounds, no guarding or rigidity. SPINE: No scoliosis or deformity SKIN: No rashes CENTRAL NERVOUS SYSTEM: Left lower extremity weakness. No other focal deficits. EXTREMITIES: Bilateral hip pain. There is no peripheral edema. No clubbing, or cyanosis. Peripheral pulses are intact. - Labs CBC & Chem 7: 03/22/23 05:54 03/22/23 05:54 Assessment and Plan Assessment: Intractable left thigh and lower back pain. CT scan of the abdomen and pelvis revealed evidence of metastatic changes in the left femoral neck and right greater trochanter. There is increased enlargement of the para aortic and bilateral iliac chain lymph nodes with worsening metastasis. Redemonstrated large lobulated soft tissue mass in the region of the prostate gland measuring up to 7.7 cm. Likely representing metastatic disease. He did start palliative radiation to the left hip, pelvis and lower back last week. Last dose scheduled for 03/28/2023 Recent diagnosis of prostate cancer with osseous metastasis. Initiated on Messi odex History of squamous cell lung cancer with previous chemo/radiation, intolerant to immunotherapy Chronic and recurrent right-sided pleural effusion, most recent thoracentesis done on 03/25/2022. Negative for cytologically malignant cells at that time. Chest x-ray this admission shows a right lower lobe effusion and possible superimposed infiltrate. There were destructive left sided rib lesions. Chronic obstructive pulmonary disease, stable Normocytic normochromic anemia, no obvious evidence of acute blood loss Coronary artery disease with previous stent placement Hyperlipidemia Benign essential hypertension Peripheral vascular occlusive disease. History DVT, anticoagulated on Eliquis Ex smoker Plan: The patient was seen and evaluated Medications reviewed Currently stable and on room air Last dose of palliative radiation scheduled for tomorrow The patient is quite adamant about going home with home care versus inpatient rehab solutions manager is following I have personally seen and examined the patient, performed the documentation and the assessment and plan as written. Number of minutes spent on the visit: 10.
[2023-03-27] MEDS: ONDANSETRON 4 MG/2 ML VIAL IVP PRN ×2 (12:41→18:23)
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
[2023-03-27] MEDS: ATORVASTATIN 20 MG TAB PO SCH (21:07)
[2023-03-28] MEDS: ONDANSETRON 4 MG/2 ML VIAL IVP PRN (01:39)
[2023-03-28] MEDS: IPRATROPIUM-ALBUTEROL 3 ML NEB INHALATION SCH ×3 (05:15→12:12)
[2023-03-28 05:53] LABS: ALT 12 U/L (4-49); AST 23 U/L (17-59); African American GFR (CKD) >90 (>60 ml/min/1.73 sqM); Albumin 2.9 g/dL (3.5-5.0); Albumin/Globulin Ratio 1.2; Alkaline Phosphatase 355 U/L (38-126); Anion Gap 11 mmol/L; Blood Urea Nitrogen 18 mg/dL (9-20); Calcium 7.4 mg/dL (8.4-10.2); Carbon Dioxide 18 mmol/L (22-30); Chloride 115 mmol/L (98-107); Globulin 2.4 g/dL; Glucose 102 mg/dL (74-99); Non-African American GFR(CKD) >90 (>60 ml/min/1.73 sqM); Potassium 4.5 mmol/L (3.5-5.1); Sodium 144 mmol/L (137-145); Total Bilirubin 0.4 mg/dL (0.2-1.3); Total Protein 5.3 g/dL (6.3-8.2)
[2023-03-28 06:02] LABS: Anisocytosis Slight; Basophils % (A) 0 %; Eosinophils # (A) 0.2 k/uL (0-0.7); Eosinophils % (A) 4 %; HCT 27.9 % (39.0-53.0); HGB 8.8 gm/dL (13.0-17.5); Hypochromasia Marked; Lymphocytes # (A) 0.3 k/uL (1.0-4.8); Lymphocytes % (A) 6 %; MCH 28.7 pg (25.0-35.0); MCHC 31.6 g/dL (31.0-37.0); MCV 90.8 fL (80.0-100.0); Mean Platelet Volume 8.2; Monocytes # (A) 0.3 k/uL (0-1.0); Monocytes % (A) 6 %; Neutrophils # (A) 3.7 k/uL (1.3-7.7); Neutrophils % (A) 80 %; Platelet Count 202 k/uL (150-450); Poikilocytosis Slight; RBC 3.07 m/uL (4.30-5.90); RDW 17.6 % (11.5-15.5); WBC 4.6 k/uL (3.8-10.6)
[2023-03-28 08:04] VITALS: BP 143/69; RESP 20; TEMP 99.1
[2023-03-28] MEDS: predniSONE 5 MG TAB PO SCH (08:16)
[2023-03-28] MEDS: ASPIRIN 81 MG PO SCH (08:17)
[2023-03-28] MEDS: BICALUTAMIDE 50 MG TAB PO SCH (08:17)
[2023-03-28] MEDS: carvediloL 12.5 MG TAB PO SCH (08:17)
[2023-03-28] MEDS: ALPRAZolam 0.5 MG TAB PO SCH (08:18)
[2023-03-28] MEDS: PSYLLIUM HUSK 100% 6 GM PACKET PO SCH (08:35)
[2023-03-28] MEDS: SYMBICORT 160-4.5 MCG INHALER INHALATION SCH (08:35)
[2023-03-28] MEDS: SENNOSIDES-DOCUSATE SODIUM 1 EACH TAB PO SCH (08:35)
[2023-03-28] MEDS: FAMOTIDINE 20 MG TAB PO SCH (08:38)
[2023-03-28] MEDS: APIXABAN 5 MG TAB PO SCH (08:38)
[2023-03-28] MEDS: MAGNESIUM OXIDE 400 MG TAB PO SCH (08:38)
[2023-03-28] MEDS: THIAMINE 100 MG TAB PO SCH (08:38)
[2023-03-28] MEDS: methocarbamoL 500 MG TAB PO SCH (08:39)
[2023-03-28] MEDS ORDERED: ZINC OXIDE PASTE (Z-GUARD) 1 APPLIC APPLIC TOPICAL SCH (09:00)
--- NOTE | 2023-03-28 11:55 | P.PN ---
Subjective Progress Note Date: 03/28/23 I am seeing this patient in consultation today 03/12/2023 after the patient presented to the emergency room 2 days ago with intractable left thigh and back pain. Patient is a 72-year-old white male with past medical history significant for known squamous cell lung carcinoma diagnosed March 2020, s/p chemo and radiation, poor tolerance to immunotherapy, right-sided pleural effusion with previous thoracentesis, chronic obstructive pulmonary disease, congestive heart failure, hypertension, chronic back pain, peripheral vascular occlusive disease, coronary artery disease with previous stent, and is an ex smoker. Last month, the patient was admitted for left thigh pain. CT of the pelvis and left femur showed focal sclerosis in the region of the greater trochanter of the right hip with cortical discontinuity suspicious for metastatic lesion, there was also vague sclerosis involving the left iliac wing which could reflect a site of additional sclerotic metastatic lesion. There was also a significant enlargement of the prostate gland with glandular irregularity measuring 8.5 x 6.5 cm. The patient was transferred out, and reportedly had biopsies performed at [facility]. I do not have these reports, but the patient states that it was positive for metastatic prostate cancer. Patient presented to the emergency room 2 days ago with a primary complaint of intractable pain. The pain is predominantly on his left hip and lower back. He has had trouble walking. Patient has been reportedly started on Casodex for his prostate CA. His oncologist is Dr. Ignacio. Patient is currently sitting up in bed, on room air, in no acute distress. Patient actually denies any significant pulmonary complaints. Chest x-ray on arrival shows a chronic right-sided pleural effusion and possible superimposed infiltrate. Findings appear chronic in my opinion. There is also an destructive left-sided rib lesion noted. CBC on arrival did not show any leukocytosis. WBC count 5.6, hemoglobin 9.4, hematocrit 29.7, platelets 219. BMP on arrival shows sodium 135, potassium 5.1, chloride 103, s nani bicarb 22, BUN 24, creatinine 0.65, glucose 125. Negative for occult blood. Procalcitonin level was mildly elevated at 0.14. Patient was empirically placed on Rocephin and azithromycin. Patient is afebrile. He is admitted to the general medical floor. The patient is seen today 03/13/2023 in follow-up on the regular medical floor. He is currently resting in bed. Awake and alert in no acute distress. He denies any significant pain. He is maintaining good O2 saturations in the 90s on room air. There was some concern regarding possible right lower lobe infiltrate. He's been on azithromycin which she completed. Currently on ceftriaxone. His pro calcitonin was 0.14. CT scan of the abdomen and pelvis revealed evidence of metastatic changes in the left femoral neck and right gr eater trochanter. There is increased enlargement of the para aortic and bilateral iliac chain lymph nodes with worsening metastasis. Redemonstrated large lobulated soft tissue mass in the region of the prostate gland measuring up to 7.7 cm. Likely likely representing metastatic disease. The patient is seen today 03/14/2023 in follow-up on the regular medical floor. He is currently sitting up in bed. Awake and alert in no acute distress. He is maintaining O2 saturations in the 90s on room air. He is currently on Pulmicort and Perforomist inhalations, DuoNeb inhalations, antibiotics in the form of Augmentin. The plan is for palliative radiation to his left hip, pelvis and lower back. He has been seen by orthopedics as well. No surgical interventions planned. The patient is seen today 03/15/2023 in follow-up on the regular medical floor. He is awake and alert in no acute distress. Resting fairly comfortably in bed. If he continues to maintain good O2 saturations in the 90s on room air. He is continued on DuoNeb inhalations, Pulmicort, prednisone taper. Anticoagulated wi th Eliquis. Antibiotics in the form of Augmentin. The patient is seen today 03/25/2023 in follow-up on the regular medical floor. He is resting in bed. Awake and alert in no acute distress. He is maintaining O2 saturations in the 90s on room air. He's afebrile. Hemodynamically stable. He states his bilateral hip pain is controlled. He remains on DuoNeb inhalations, Symbicort, prednisone. He is on Casodex. Anticoagulated with Eliquis. The patient is seen today 03/26/2023 follow-up on the regular medical floor. He is awake and alert in no acute distress. Occasionally confused. Continues to maintain good O2 saturations in the mid 90s on room air. He's been afebrile. Hemodynamically stable. He continues to see palliative radiation therapy for his metastatic prostate cancer to the bones. He remains on Casodex. Anticoagulated with Eliquis. Continued on bronchodilators. Continued on Prednisone. The patient is seen today 03/27/2023 in follow-up on the regular medical floor. He is awake and alert. He is confused at times. He is maintaining good O2 saturations up to 100% on room air. Afebrile. Hemodynamically stable. Remains on DuoNeb inhalations, Symbicort, prednisone. Anticoagulated with Eliquis. He is continuing with palliative radiation treatments. The patient is seen today 03/28/2023 in follow-up on the regular medical floor. He is awake and alert. He remains confused at times. Uncooperative at times. He continues to maintain good O2 saturations in the 90s on room air. He's been afebrile. Hemodynamically stable. White count 4.6. Hemoglobin 8.8. Platelets 202. Sodium 144. Potassium 4.5. Bicarb 18. BUN 18. Creatinine 0.66. Glucose 102. C. difficile screen was negative. Remains on DuoNeb inhalations, Symbicort, prednisone. Anticoagulated with Eliquis. He is continuing with palliative radiation treatments through today. Objective - Vital Signs Vital signs: Vital Signs Temp 99.1 F 03/28/23 07:28 Pulse 99 03/28/23 07:28 Resp 20 03/28/23 07:28 BP 143/69 03/28/23 07:28 Pulse Ox 97 03/28/23 07:28 FiO2 21 03/16/23 08:18 Intake & Output 03/27/23 03/28/23 03/28/23 18:59 06:59 18:59 Output Total 300 300 Balance -300 -300 Weight 95.254 kg Output: Urine 300 300 Other: Voiding Method Bedside Commode Indwelling Catheter Indwelling Catheter Indwelling Catheter # Bowel Movements 1 3 1 - Exam GENERAL EXAM: Alert, confused at times, 72-year-old male, resting in bed, on room air. Fairly comfortable in no acute distress HEAD: Normocephalic and atraumatic EYES: Normal reaction of pupils, equal size. NOSE: Clear with pink turbinates. THROAT: No erythema or exudates. NECK: No masses, no JVD. CHEST: No chest wall deformity. LUNGS: Equal air entry with no crackles, wheeze, rhonchi or dullness. No conversational dyspnea. CVS: S1 and S2 normal with no audible murmur, regular rhythm. No extra heart sounds ABDOMEN: Obese abdomen, no hepatosplenomegaly, active bowel sounds, no guarding or rigidity. SPINE: No scoliosis or deformity SKIN: No rashes CENTRAL NERVOUS SYSTEM: Left lower extremity weakness. No other focal deficits. EXTREMITIES: Bilateral hip pain. There is no peripheral edema. No clubbing, or cyanosis. Peripheral pulses are intact. - Labs CBC & Chem 7: 03/28/23 04:21 03/28/23 04:21 Labs: Abnormal Lab Results - Last 24 Hours (Table) 03/28/23 03/28/23 Range/Units 04:21 04:21 RBC 3.07 L (4.30-5.90) m/uL Hgb 8.8 L (13.0-17.5) gm/dL Hct 27.9 L (39.0-53.0) % RDW 17.6 H (11.5-15.5) % Lymphocytes # 0.3 L (1.0-4.8) k/uL Chloride 115 H (98-107) mmol/L Carbon Dioxide 18 L (22-30) mmol/L Glucose 102 H (74-99) mg/dL Calcium 7.4 L (8.4-10.2) mg/dL Alkaline Phosphatase 355 H (38-126) U/L Total Protein 5.3 L (6.3-8.2) g/dL Albumin 2.9 L (3.5-5.0) g/dL Assessment and Plan Assessment: Intractable left thigh and lower back pain. CT scan of the abdomen and pelvis revealed evidence of metastatic changes in the left femoral neck and right greater trochanter. There is increased enlargement of the para aortic and bilateral iliac chain lymph nodes with worsening metastasis. Redemonstrated large lobulated soft tissue mass in the region of the prostate gland measuring up to 7.7 cm. Likely representing metastatic disease. He did start palliative radiation to the left hip, pelvis and lower back last week. Last dose scheduled for 03/28/2023 Recent diagnosis of prostate cancer with osseous metastasis. Initiated on Casodex History of squamous cell lung cancer with previous chemo/radiation, intolerant to immunotherapy Chronic and recurrent right-sided pleural effusion, most recent thoracentesis done on 03/25/2022. Negative for cytologically malignant cells at that time. Chest x-ray this admission shows a right lower lobe effusion and possible superimposed infiltrate. There were destructive left sided rib lesions. Chronic obstructive pulmonary disease, stable Normocytic normochromic anemia, no obvious evidence of acute blood loss Coronary artery disease with previous stent placement Hyperlipidemia Benign essential hypertension Peripheral vascular occlusive disease. History DVT, anticoagulated on Eliquis Ex smoker Plan: The patient was seen and evaluated Medications reviewed Currently stable and on room air Last dose of palliative radiation scheduled today Plan now is for home with home care This patient was seen independently by the nurse practitioner I have personally seen and examined the patient, performed the documentation and the assessment and plan as written. Number of minutes spent on the visit: 22.
[2023-03-28 12:39] VITALS: PULSE 90
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
== END 2023-03-28 12:55 | disposition home health service (06) | DRG 542 ==
LOC: EC 15:13 → 5NMEDONC 15:39
PROVIDERS: ADMIT Hospitalist; ATTEND Hospitalist
PROC: DW062ZZ Beam Radiation of Pelvic Region using Photons >10 MeV (ICD-10-PCS; principal; 2023-03-15)
DX: C79.51 Secondary malignant neoplasm of bone (principal); J18.9 Pneumonia, unspecified organism; J44.0 Chronic obstructive pulmonary disease with (acute) lower respiratory infection; I50.32 Chronic diastolic (congestive) heart failure; M84.451A Pathological fracture, right femur, initial encounter for fracture; C77.9 Secondary and unspecified malignant neoplasm of lymph node, unspecified; C34.91 Malignant neoplasm of unspecified part of right bronchus or lung; J44.1 Chronic obstructive pulmonary disease with (acute) exacerbation; I82.502 Chronic embolism and thrombosis of unspecified deep veins of left lower extremity; L97.329 Non-pressure chronic ulcer of left ankle with unspecified severity; J98.19 Other pulmonary collapse; G89.3 Neoplasm related pain (acute) (chronic); I11.0 Hypertensive heart disease with heart failure; L89.312 Pressure ulcer of right buttock, stage 2; D69.6 Thrombocytopenia, unspecified; I73.9 Peripheral vascular disease, unspecified; J70.4 Drug-induced interstitial lung disorders, unspecified; L89.321 Pressure ulcer of left buttock, stage 1; L89.311 Pressure ulcer of right buttock, stage 1; D63.0 Anemia in neoplastic disease; F10.10 Alcohol abuse, uncomplicated; G89.4 Chronic pain syndrome; M84.452S Pathological fracture, left femur, sequela; T45.1X5A Adverse effect of antineoplastic and immunosuppressive drugs, initial encounter; Z95.820 Peripheral vascular angioplasty status with implants and grafts; R26.2 Difficulty in walking, not elsewhere classified; N40.0 Benign prostatic hyperplasia without lower urinary tract symptoms; I25.10 Atherosclerotic heart disease of native coronary artery without angina pectoris; E78.5 Hyperlipidemia, unspecified; M21.371 Foot drop, right foot; M21.372 Foot drop, left foot; F41.9 Anxiety disorder, unspecified; K59.03 Drug induced constipation; N32.0 Bladder-neck obstruction; R04.0 Epistaxis; R33.8 Other retention of urine; T40.605A Adverse effect of unspecified narcotics, initial encounter; J98.4 Other disorders of lung; R59.9 Enlarged lymph nodes, unspecified; M17.12 Unilateral primary osteoarthritis, left knee; R63.0 Anorexia; Z20.822 Contact with and (suspected) exposure to COVID-19; Z74.1 Need for assistance with personal care; Y84.2 Radiological procedure and radiotherapy as the cause of abnormal reaction of the patient, or of later complication, without mention of misadventure at the time of the procedure; Z68.30 Body mass index [BMI] 30.0-30.9, adult; Z79.82 Long term (current) use of aspirin; Z79.899 Other long term (current) drug therapy; Z79.51 Long term (current) use of inhaled steroids; Z79.891 Long term (current) use of opiate analgesic; Z79.52 Long term (current) use of systemic steroids; I25.2 Old myocardial infarction; Z85.118 Personal history of other malignant neoplasm of bronchus and lung; Z92.21 Personal history of antineoplastic chemotherapy; Z79.01 Long term (current) use of anticoagulants; Z92.3 Personal history of irradiation; Z86.14 Personal history of Methicillin resistant Staphylococcus aureus infection; Z80.1 Family history of malignant neoplasm of trachea, bronchus and lung; Z85.46 Personal history of malignant neoplasm of prostate; Z95.5 Presence of coronary angioplasty implant and graft; Z87.891 Personal history of nicotine dependence; Z28.310 Unvaccinated for COVID-19; V29.99XS Rider (driver) (passenger) of other motorcycle injured in unspecified traffic accident, sequela
CPT/HCPCS: 71045; 72192; 77280; 77290; 77295; 77300; 77334; 77336; 77387; 77412; 80048; 80053; 84145; 84153; 84154; 84403; 85025; 87324; 87449; 87635; 94640; 94760; 96365; 96375; 99285

== ENCOUNTER 2023-04-11 13:30 | Inpatient (IN) | payer MEDICARE, OTHER ==
[2023-04-11 14:09] LABS: Anisocytosis Slight; Basophils % (A) 0 %; Eosinophils # (A) 0.2 k/uL (0-0.7); Eosinophils % (A) 2 %; HCT 23.7 % (39.0-53.0); HGB 7.7 gm/dL (13.0-17.5); Hypochromasia Moderate; Lymphocytes # (A) 0.2 k/uL (1.0-4.8); Lymphocytes % (A) 4 %; MCH 29.1 pg (25.0-35.0); MCHC 32.7 g/dL (31.0-37.0); MCV 88.8 fL (80.0-100.0); Mean Platelet Volume 7.1; Monocytes # (A) 0.3 k/uL (0-1.0); Monocytes % (A) 4 %; Neutrophils # (A) 5.9 k/uL (1.3-7.7); Neutrophils % (A) 88 %; Platelet Count 191 k/uL (150-450); RBC 2.66 m/uL (4.30-5.90); RDW 18.7 % (11.5-15.5); WBC 6.7 k/uL (3.8-10.6)
[2023-04-11 14:28] LABS: INR 1.2 (<1.2); Partial Thromboplastin Time 23.1 sec (22.0-30.0); Prothrombin Time 12.3 sec (10.0-12.5)
[2023-04-11 14:29] LABS: ALT 16 U/L (4-49); AST 28 U/L (17-59); African American GFR (CKD) >90 (>60 ml/min/1.73 sqM); Albumin 2.5 g/dL (3.5-5.0); Alkaline Phosphatase 368 U/L (38-126); Anion Gap 6 mmol/L; Blood Urea Nitrogen 18 mg/dL (9-20); Calcium 7.3 mg/dL (8.4-10.2); Carbon Dioxide 19 mmol/L (22-30); Chloride 113 mmol/L (98-107); Glucose 102 mg/dL (74-99); Non-African American GFR(CKD) >90 (>60 ml/min/1.73 sqM); Sodium 138 mmol/L (137-145); Total Bilirubin 0.4 mg/dL (0.2-1.3); Total Protein 4.6 g/dL (6.3-8.2)
--- NOTE | 2023-04-11 14:32 | ED ---
General Adult HPI - General Chief complaint: GI Bleed Stated complaint: Dark Stool Time Seen by Provider: 04/11/23 13:55 Source: patient, EMS, RN notes reviewed, old records reviewed Mode of arrival: EMS Limitations: physical limitation - History of Present Illness Initial comments: This is a 72-year-old male with past medical history significant for paraplegia patient comes in today stating that he's had lower abdominal pain and black stools since yesterday. Patient states the pain continues today and is more on the right side than the left. Patient denies any fever chills but he says he just doesn't feel right. Patient denies any chest pain difficulty breathing or shortness of breath. Patient denies any back pain. Patient states he is on a blood thinner for atrial fibrillation - Related Data Home Medications Medication Instructions Recorded Confirmed carvediloL [Coreg*] 12.5 mg PO BID 12/05/20 04/11/23 Ipratropium-Albuterol Nebulize 3 ml INHALATION RT-Q6H 07/11/21 04/11/23 [Duoneb 0.5 mg-3 mg/3 ml Soln] Atorvastatin [Lipitor] 20 mg PO HS 03/24/22 04/11/23 Famotidine 40 mg PO BID 02/08/23 04/11/23 predniSONE 5 mg PO BID 02/08/23 04/11/23 Apixaban [Eliquis] 5 mg PO BID 03/10/23 04/11/23 Formoterol Fumarate [Perforomist] 20 mcg INHALATION RT-BID 03/10/23 04/11/23 Magnesium Oxide [Mag-Ox] 400 mg PO BID 03/10/23 04/11/23 Methadone HCl 10 mg PO BID PRN 03/10/23 04/11/23 Naloxone HCl [Narcan] 4 mg NASAL DIRECTED PRN 03/10/23 04/11/23 Sennosides [Senokot] 17.2 mg PO DAILY 03/10/23 04/11/23 Sodium Chloride [[place]] 1 spray EA NOSTRIL Q4H PRN 03/10/23 04/11/23 Thiamine [Vitamin B-1] 100 mg PO DAILY 03/10/23 04/11/23 methocarbamoL [Robaxin] 1,000 mg PO QID PRN 03/10/23 04/11/23 ALPRAZolam [Xanax] 0.25 mg PO BID PRN 04/11/23 04/11/23 HYDROmorphone HCL 8 mg PO Q4H PRN 04/11/23 04/11/23 Tamsulosin [Flomax] 0.4 mg PO DAILY 04/11/23 04/11/23 ondansetron HCL [Zofran] 8 mg PO DAILY PRN 04/11/23 04/11/23 oxyCODONE-APAP 10-325MG [Percocet 1 tab PO Q6H PRN 04/11/23 04/11/23 10-325 mg] Previous Rx's Medication Instructions Recorded Aspirin 81 mg PO DAILY tab 03/28/23 Bicalutamide [Casodex] 50 mg PO DAILY #30 tab 03/28/23 Psyllium Husk 100% [Metamucil 6 gm PO BID #60 packet 03/28/23 Packet] Allergies Allergy/AdvReac Type Severity Reaction Status Date / Time No Known Allergies Allergy Verified 04/11/23 16:17 Review of Systems ROS Statement: Those systems with pertinent positive or pertinent negative responses have been documented in the HPI. ROS Other: All systems not noted in ROS Statement are negative. Past Medical History Past Medical History: Cancer, Chest Pain / Angina, Heart Failure, COPD, Hypertension, Myocardial Infarction ([place]), Skin Disorder Additional Past Medical History / Comment(s): chronic back pain, [place] spring 2015; pt has history of PVD with LLE cellulitis, states he had vascular surgery to improve healing, lung CA, had chemo and radiation immunotherapy 2020 Last Myocardial Infarction Date:: 2015 History of Any Multi-Drug Resistant Organisms: MRSA Date of last positivie culture/infection: 06/25/17 MDRO Source:: LEFT LEG Past Surgical History: Heart Catheterization With Stent, Hernia Repair, Orthopedic Surgery Additional Past Surgical History / Comment(s): left femur ORIF 40 years ago and luisa shoulder surgery- rotator repair, left leg bypass; two stents placed in November 2019, hernia repair 2019 Past Anesthesia/Blood Transfusion Reactions: No Reported Reaction Date of Last Stent Placement:: November 2019 Past Psychological History: Anxiety Smoking Status: Former smoker Past Alcohol Use History: None Reported Past Drug Use History: None Reported - Past Family History Father Additional Family Medical History / Comment(s): lung cancer Brother(s) Additional Family Medical History / Comment(s): lung cancer General Exam - General Exam Comments Initial Comments: GENERAL: Patient is well-developed and well-nourished. Patient is nontoxic and well- hydrated and is in mild distress. ENT: Neck is soft and supple. No significant lymphadenopathy is noted. Oropharynx is clear. Moist mucous membranes. Neck has full range of motion without el iciting any pain. EYES: The sclera were anicteric and conjunctiva were pink and moist. Extraocular movements were intact and pupils were equal round and reactive to light. Eyelids were unremarkable. PULMONARY: Unlabored respirations. Good breath sounds bilaterally. No audible rales rhonchi or wheezing was noted. CARDIOVASCULAR: There is a regular rate and rhythm without any murmurs gallops or rubs. ABDOMEN: Patient is tender in the right lower quadrant. RECTAL: On rectal examination stool was black and will be tested SKIN: Skin is clear with no lesions or rashes and otherwise unremarkable. NEUROLOGIC: Patient is alert and oriented x3. Cranial nerves II through XII are grossly intact. MUSCULOSKELETAL: Patient is very minimal movement of his legs states this is normal LYMPHATICS: No significant lymphadenopathy is noted PSYCHIATRIC: Normal psychiatric evaluation. Limitations: physical limitation Course Vital Signs 04/11/23 04/11/23 04/11/23 13:45 14:30 16:30 Temperature 98.5 F 98.9 F Pulse Rate 92 92 89 Pulse Rate [ Left Radial] Respiratory 18 20 16 Rate Blood Pressure 123/67 110/56 118/60 Blood Pressure [Left Arm] O2 Sat by Pulse 95 95 95 Oximetry 04/11/23 04/11/23 04/11/23 17:40 19:00 20:00 Temperature 98.7 F 98.4 F Pulse Rate 89 Pulse Rate [ 101 H Left Radial] Respiratory 16 18 Rate Blood Pressure 105/57 110/59 Blood Pressure 105/69 [Left Arm] O2 Sat by Pulse 95 Oximetry 04/11/23 20:03 Temperature 98.3 F Pulse Rate Pulse Rate [ Left Radial] Respiratory Rate Blood Pressure Blood Pressure [Left Arm] O2 Sat by Pulse Oximetry Medical Decision Making - Medical Decision Making EKG is interpreted by myself. A sinus rhythm at 89 bpm NM interval 120 QRS is 98 QT interval 363 QTC is 410. Patient's EKG shows no ST segment elevation or depression Was pt. sent in by a medical professional or institution ([facility] Weinstein, [facility], urgent care, hospital, or longterm...) When possible be specific @ -No Did you speak to anyone other than the patient for history (EMS, parent, family, police, friend...)? What history was obtained from this source @ -No Did you review nursing and triage notes (agree or disagree)? Why? @ -I reviewed and agree with nursing and triage notes Were old charts reviewed (outside hosp., previous admission, EMS record, old EKG, old radiological studies, urgent care reports/EKG's, longterm records)? Report findings @ -Reviewed prior charts of prior lab work on this patient Differential Diagnosis (chest pain, altered mental status, abdominal pain women, abdominal pain men, vaginal bleeding, weakness, fever, dyspnea, syncope, headache, dizziness, GI bleed, back pain, seizure, CVA, palpatations, mental health, musculoskeletal)? @ -Differential Abdominal Pain Men: Appendicitis, cholecystitis, diverticulosis, ischemic bowel, pancreatitis, hepatitis, UTI, gastroenteritis, AAA, incarcerated hernia, bowel obstruction, constipation, inflammatory bowel, hepatitis, peptic ulcer disease, splenic infarction, perforated viscus, testicular torsion, this is not meant to be an all-inclusive list EKG interpreted by me (3pts min.). @ -As above X-rays interpreted by me (1pt min.). @ -None done CT interpreted by me (1pt min.). @ -CT of the abdomen pelvis show no acute abnormality U/S interpreted by me (1pt. min.). @ -None done What testing was considered but not performed or refused? (CT, X-rays, U/S, labs)? Why? @ -None What meds were considered but not given or refused? Why? @ -None Did you discuss the management of the patient with other professionals (professionals i.e. [facility]RIST[facility] Weinstein, [facility], lab, RT, psych nurse, social media intern, specifications writer, te acher, intelligence support officer, case therapist)? Give summary @ -Old with Dr. Sr and he agreed to admit the patient Was smoking cessation discussed for >3mins.? @ -No Was critical care preformed (if so, how long)? @ -No Were there social determinants of health that impacted care today? How? (Homelessness, low income, unemployed, alcoholism, drug addiction, transportation, low edu. Level, literacy, decrease access to med. care, [facility], rehab)? @ -No Was there de-escalation of care discussed even if they declined (Discuss DNR or withdrawal of care, Hospice)? DNR status @ -No What co-morbidities impacted this encounter? (DM, HTN, Smoking, COPD, CAD, Cancer, CVA, ARF, Chemo, Hep., AIDS, mental health diagnosis, sleep apnea, morbid obesity)? @ -None Was patient admitted / discharged? Hospital course, mention meds given and route, prescriptions, significant lab abnormalities, going to OR and other pertinent info. @ -Patient is treated with antibiotic for urinary tract infection. Patient will see Dr. Carrillo for the GI bleed. Patient is anemic and CBC will be repeated. Undiagnosed new problem with uncertain prognosis? @ -No Drug Therapy requiring intensive monitoring for toxicity (Heparin, Nitro, Insulin, Cardizem)? @ -No Were any procedures done? @ -No Diagnosis/symptom? @ -GI bleed Acute, or Chronic, or Acute on Chronic? @ -Acute Uncomplicated (without systemic symptoms) or Complicated (systemic symptoms)? @ -Complicated Side effects of treatment? @ -No Exacerbation, Progression, or Severe Exacerbation? @ -No Poses a threat to life or bodily function? How? (Chest pain, [place], [place], pneumonia, PE, COPD, DKA, ARF, appy, cholecystitis, CVA, Diverticulitis, Homicidal, Suicidal, threat to staff... and all critical care pts) @ -No Diagnosis/symptom? @ -Urinary tract infection Acute, or Chronic, or Acute on Chronic? @ -Acute Uncomplicated (without systemic symptoms) or Complicated (systemic symptoms)? @ -Complicated Side effects of treatment? @ -none Exacerbation, Progression, or Severe Exacerbation] @ -no Poses a threat to life or bodily function? @ -no Diagnosis/symptom? @ -Anemia Acute, or Chronic, or Acute on Chronic? @ -Acute Uncomplicated (without systemic symptoms) or Complicated (systemic symptoms)? @ -Complicated Side effects of treatment? @ -none Exacerbation, Progression, or Severe Exacerbation] @ -no Poses a threat to life or bodily function? @ -no - Lab Data Result diagrams: 04/11/23 20:36 04/11/23 13:57 Lab Results 04/11/23 04/11/23 04/11/23 Range/Units 13:57 13:57 13:57 WBC 6.7 (3.8-10.6) k/uL RBC 2.66 L (4.30-5.90) m/uL Hgb 7.7 L (13.0-17.5) gm/dL Hct 23.7 L (39.0-53.0) % MCV 88.8 (80.0-100.0) fL MCH 29.1 (25.0-35.0) pg MCHC 32.7 (31.0-37.0) g/dL RDW 18.7 H (11.5-15.5) % Plt Count 191 (150-450) k/uL MPV 7.1 Neutrophils % 88 % Lymphocytes % 4 % Monocytes % 4 % Eosinophils % 2 % Basophils % 0 % Neutrophils # 5.9 (1.3-7.7) k/uL Lymphocytes # 0.2 L (1.0-4.8) k/uL Monocytes # 0.3 (0-1.0) k/uL Eosinophils # 0.2 (0-0.7) k/uL Basophils # 0.0 (0-0.2) k/uL Hypochromasia Moderate Anisocytosis Slight PT 12.3 (10.0-12.5) sec INR 1.2 H (<1.2) APTT 23.1 (22.0-30.0) sec Sodium (137-145) mmol/L Potassium (3.5-5.1) mmol/L Chloride (98-107) mmol/L Carbon Dioxide (22-30) mmol/L Anion Gap mmol/L BUN (9-20) mg/dL Creatinine (0.66-1.25) mg/dL Est GFR (CKD-EPI)AfAm (>60 ml/min/1.73 sqM) Est GFR (CKD-EPI)NonAf (>60 ml/min/1.73 sqM) Glucose (74-99) mg/dL Calcium (8.4-10.2) mg/dL Total Bilirubin (0.2-1.3) mg/dL AST (17-59) U/L ALT (4-49) U/L Alkaline Phosphatase (38-126) U/L Total Protein (6.3-8.2) g/dL Albumin (3.5-5.0) g/dL Urine Color Urine Appearance (Clear) Urine pH (5.0-8.0) Ur Specific [place] (1.001-1.035) Urine Protein (Negative) Urine Glucose (UA) (Negative) Urine Ketones (Negative) Urine Blood (Negative) Urine Nitrite (Negative) Urine Bilirubin (Negative) Urine Urobilinogen (<2.0) mg/dL Ur Leukocyte Esterase (Negative) Urine RBC (0-5) /hpf Urine WBC (0-5) /hpf Urine WBC Clumps (None) /hpf Urine Mucus (None) /hpf Urine Yeast (Budding) (None) /hpf Stool Occult Blood Positive (Negative) Blood Type Blood Type Recheck Bld Type Recheck Status Antibody Screen Spec Expiration Date 04/11/23 04/11/23 04/11/23 Range/Units 13:57 14:00 15:19 WBC (3.8-10.6) k/uL RBC (4.30-5.90) m/uL Hgb (13.0-17.5) gm/dL Hct (39.0-53.0) % MCV (80.0-100.0) fL MCH (25.0-35.0) pg MCHC (31.0-37.0) g/dL RDW (11.5-15.5) % Plt Count (150-450) k/uL MPV Neutrophils % % Lymphocytes % % Monocytes % % Eosinophils % % Basophils % % Neutrophils # (1.3-7.7) k/uL Lymphocytes # (1.0-4.8) k/uL Monocytes # (0-1.0) k/uL Eosinophils # (0-0.7) k/uL Basophils # (0-0.2) k/uL Hypochromasia Anisocytosis PT (10.0-12.5) sec INR (<1.2) APTT (22.0-30.0) sec Sodium 138 (137-145) mmol/L Potassium 4.0 (3.5-5.1) mmol/L Chloride 113 H (98-107) mmol/L Carbon Dioxide 19 L (22-30) mmol/L Anion Gap 6 mmol/L BUN 18 (9-20) mg/dL Creatinine 0.66 (0.66-1.25) mg/dL Est GFR (CKD-EPI)AfAm >90 (>60 ml/min/1.73 sqM) Est GFR (CKD-EPI)NonAf >90 (>60 ml/min/1.73 sqM) Glucose 102 H (74-99) mg/dL Calcium 7.3 L (8.4-10.2) mg/dL Total Bilirubin 0.4 (0.2-1.3) mg/dL AST 28 (17-59) U/L ALT 16 (4-49) U/L Alkaline Phosphatase 368 H (38-126) U/L Total Protein 4.6 L (6.3-8.2) g/dL Albumin 2.5 L (3.5-5.0) g/dL Urine Color Yellow Urine Appearance Turbid (Clear) Urine pH 5.5 (5.0-8.0) Ur Specific [place] 1.031 (1.001-1.035) Urine Protein 2+ H (Negative) Urine Glucose (UA) Negative (Negative) Urine Ketones Negative (Negative) Urine Blood Large H (Negative) Urine Nitrite Negative (Negative) Urine Bilirubin Negative (Negative) Urine Urobilinogen <2.0 (<2.0) mg/dL Ur Leukocyte Esterase Large H (Negative) Urine RBC >182 H (0-5) /hpf Urine WBC >182 H (0-5) /hpf Urine WBC Clumps Many H (None) /hpf Urine Mucus Many H (None) /hpf Urine Yeast (Budding) Moderate H (None) /hpf Stool Occult Blood (Negative) Blood Type A Positive Blood Type Recheck A Pos Bld Type Recheck Status No Antibody Screen NEGATIVE Spec Expiration Date 04/14/20232349 Disposition Clinical Impression: Anemia, GI bleed, Urinary tract infection Disposition: ADMITTED IP TO THIS HOSP
--- NOTE | 2023-04-11 15:44 | CT ---
EXAMINATION TYPE: CT abdomen pelvis w con DATE OF EXAM: 04/11/2023 COMPARISON: 11/23/2022 HISTORY: RLQ pain, black stools CT DLP: 1422.2 mGycm CONTRAST: CT scan of the abdomen and pelvis is performed without Oral Contrast and with IV Contrast, patient in jected with 100 mL of Isovue 300. FINDINGS: LUNG BASES-: Partially imaged right infrahilar masslike area measuring 4.4 x 3.6 cm. Small bilateral pleural effusions. Left basilar compressive atelectasis. LIVER/GB: No calcified gallstones. No space occupying hepatic lesion. Biliary tree is of normal ca liber. PANCREAS: No inflammation. No distinct mass. SPLEEN: No splenic enlargement. No lesion seen. ADRENALS: No nodule. No thickening. KIDNEYS/BLADDER: No hydronephrosis. No nephrolithiasis. No distinct renal mass. Urinary bladder g rossly unremarkable. Renal vascular calcifications. Parenchymal thinning noted upper pole right kidney. BOWEL: Normal appendix. Normal bowel caliber. Strandy attenuation adjacent to the proximal sigmoid c olon could reflect underlying diverticulitis. GENITAL ORGANS: There is ill-definition of the prostate gland with enlargement and marginal irregula rity and internal necrosis suggested. Prostate gland is difficult to measure however submitted measur ement of 6.5 x 6.4 cm. I cannot exclude infiltration into the urinary bladder and rectum. Fat planes are obliterated. LYMPH NODES: Left iliac chain adenopathy measuring up to a 2.5 cm. Additional lymph node measuring 2. 7 cm. AORTA: No significant abnormality. OSSEOUS STRUCTURES: Patchy appearance of the lumbar and thoracic spine suspicious for metastatic dise ase. Several left-sided rib lesions noted compatible with metastatic disease. Suspect right sacral le ilia. Patchy appearance throughout the ileal wings. OTHER: No significant additional abnormality is seen. IMPRESSION: 1. Enlargement and irregularity of the prostate gland felt to reflect malignancy. I cannot exclude in filtration into the urinary bladder and adjacent rectum as a fat planes are obliterated. 2. Left-sided iliac chain adenopathy. 3. Suspect bony metastatic disease as discussed above. 4. Masslike infiltrate right infrahilar region. 5. Bilateral pleural effusions. 6. Mild sigmoid diverticulitis difficult to exclude.
[2023-04-11 15:47] LABS: Appearance,Urine Turbid (Clear); Bilirubin,Urine Negative (Negative); Blood,Urine Large (Negative); Budding Yeast,Urine Moderate /hpf; Color,Urine Yellow; Glucose,Urine (UA) Negative (Negative); Ketones,Urine Negative (Negative); Leukocyte Esterase,Urine Large (Negative); Mucus,Urine Many /hpf; Nitrite,Urine Negative (Negative); PH, Urine 5.5 (5.0-8.0); Protein,Urine 2+ (Negative); RBC,Urine >182 /hpf (0-5); Specific Gravity,Urine 1.031 (1.001-1.035); Urobilinogen,Urine <2.0 mg/dL (<2.0); WBC,Urine >182 /hpf (0-5)
[2023-04-11] MEDS ORDERED: cefTRIAXone IN SWFI 1,000 MG/10 ML SYRINGE IVP STA (16:02)
[2023-04-11] MEDS ORDERED: SODIUM CHLORIDE 0.9% 1,000 ML IV ONE (16:06)
[2023-04-11] MEDS ORDERED: methocarbamoL 500 MG TAB PO PRN (19:54)
[2023-04-11] MEDS ORDERED: ONDANSETRON 4 MG TAB PO PRN (19:54)
[2023-04-11] MEDS ORDERED: ALPRAZolam 0.25 MG TAB PO PRN (19:54)
[2023-04-11] MEDS ORDERED: LACTULOSE 20 GM/30 ML CUP PO PRN (19:55)
[2023-04-11] MEDS ORDERED: NALOXONE 0.4 MG/ML 1 ML VIAL IV PRN (19:55)
[2023-04-11] MEDS ORDERED: CALCIUM CARBONATE 500 MG CHEWABLE PO PRN (19:55)
[2023-04-11 21:17] LABS: Anisocytosis Slight; Basophils % (A) 0 %; Eosinophils # (A) 0.2 k/uL (0-0.7); Eosinophils % (A) 3 %; HCT 26.2 % (39.0-53.0); HGB 8.4 gm/dL (13.0-17.5); Hypochromasia Marked; Lymphocytes # (A) 0.3 k/uL (1.0-4.8); Lymphocytes % (A) 5 %; MCH 29.5 pg (25.0-35.0); MCHC 32.2 g/dL (31.0-37.0); MCV 91.7 fL (80.0-100.0); Mean Platelet Volume 7.4; Monocytes # (A) 0.3 k/uL (0-1.0); Monocytes % (A) 5 %; Neutrophils # (A) 5.3 k/uL (1.3-7.7); Neutrophils % (A) 84 %; Platelet Count 164 k/uL (150-450); Poikilocytosis Slight; RBC 2.86 m/uL (4.30-5.90); RDW 18.7 % (11.5-15.5); WBC 6.3 k/uL (3.8-10.6)
[2023-04-11] MEDS: ATORVASTATIN 20 MG TAB PO SCH (21:22)
[2023-04-11] MEDS: METHADONE 10 MG TAB PO PRN (21:22)
[2023-04-11] MEDS: oxyCODONE-APAP 10-325MG 1 EACH TAB PO PRN (21:23)
[2023-04-11] MEDS: MELATONIN 3 MG TABLET PO PRN (21:23)
[2023-04-11] MEDS: LORazepam 0.5 MG TAB PO PRN (21:23)
[2023-04-11] MEDS: SODIUM CHLORIDE 0.65% NASAL SPRAY 44 ML BTL INTRANASAL SCH (21:24)
[2023-04-11] MEDS ORDERED: ZINC OXIDE PASTE (Z-GUARD) 1 APPLIC APPLIC TOPICAL PRN (22:07)
[2023-04-11] MEDS: predniSONE 5 MG TAB PO SCH (22:11)
[2023-04-11] MEDS: carvediloL 3.125 MG TAB PO SCH (22:11)
[2023-04-11] MEDS: HYDROmorphone 2 MG TAB PO PRN (22:11)
[2023-04-11] MEDS: FORMOTEROL FUMARATE 20 MCG/2 ML NEBU INHALATION SCH (22:24)
[2023-04-11] MEDS: IPRATROPIUM-ALBUTEROL 3 ML NEB INHALATION SCH (22:24)
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
[2023-04-12] MEDS: HYDROmorphone 2 MG TAB PO PRN ×4 (01:49→22:03)
[2023-04-12] MEDS: PANTOPRAZOLE 40 MG TABLET PO SCH ×3 (01:49→17:03)
[2023-04-12] MEDS: IPRATROPIUM-ALBUTEROL 3 ML NEB INHALATION SCH ×5 (04:35→21:41)
[2023-04-12] MEDS: oxyCODONE-APAP 10-325MG 1 EACH TAB PO PRN ×2 (06:31→20:21)
[2023-04-12] MEDS: carvediloL 3.125 MG TAB PO SCH ×2 (06:32→17:02)
[2023-04-12] MEDS: FORMOTEROL FUMARATE 20 MCG/2 ML NEBU INHALATION SCH ×2 (07:56→21:41)
[2023-04-12] MEDS: SODIUM CHLORIDE 0.65% NASAL SPRAY 44 ML BTL INTRANASAL SCH ×4 (09:21→20:22)
[2023-04-12] MEDS: TAMSULOSIN 0.4 MG CAP.ER.24H PO SCH (09:21)
[2023-04-12] MEDS: BICALUTAMIDE 50 MG TAB PO SCH (09:21)
[2023-04-12] MEDS: predniSONE 5 MG TAB PO SCH ×2 (09:21→20:20)
[2023-04-12] MEDS: THIAMINE 100 MG TAB PO SCH (09:21)
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
[2023-04-12] MEDS: METHADONE 10 MG TAB PO PRN ×2 (12:21→17:02)
[2023-04-12] MEDS ORDERED: IV FLUID CONTINUATION 100 ML IV ONE (14:44)
[2023-04-12] MEDS ORDERED: PROPOFOL 10 MG/ML 20 ML VIAL IV ONE (14:46)
[2023-04-12] MEDS ORDERED: LIDOCAINE 1% INJ 10MG/ML (20 ML MDV) ONE (14:46)
--- NOTE | 2023-04-12 15:19 | P.PCN ---
Date of Procedure: 04/12/23 Procedure(s) Performed: BRIEF HISTORY: Patient is a 72-year-old, pleasant, white male with history of metastatic prostate cancer diagnosed a few months ago.. He was having black tarry stools of 2 days' duration but since being in the hospital he did not have any further episodes. Hemoglobin was 7.7 g/dL. His and scheduled for an upper endoscopy to evaluate further. His last dose of eliquis was 2 nights ago. PROCEDURE PERFORMED: Esophagogastroduodenoscopy PREOPERATIVE DIAGNOSIS: Black tarry stools of 2 days' duration and anemia. IV sedation per anesthesia. PROCEDURE: After informed consent was obtained, the patient was brought into the endoscopy unit. IV sedation was administered by Anesthesia under continuous monitoring. Initially the Olympus GIF-140 video endoscope was inserted into the mouth. Esophagus intubated without any difficulty. It was gradually advanced into the stomach and duodenum and carefully examined. The bulb and the second part of the duodenum appeared normal. The scope at this time was withdrawn to the stomach, adequately insufflated with air, and upon careful examination, mucosa of the antrum, mild gastritis. Mucosa of the body, cardia and the fundus appeared normal. The scope was then withdrawn into the esophagus. The GE junction was located at 39 cm from the incisors. The esophagus appeared normal. There were no erosions or ulcerations seen and the patient tolerated the procedure well. IMPRESSION: 1. Mild antral gastritis. 2. No evidence of active upper GI bleed. RECOMMENDATIONS: The findings of this examination were discussed with the patient . Continue with Protonix 40 mg daily. Monitor CBC daily. Advance diet as tolerated.. Resume Olympus todayday to
[2023-04-12] MEDS: MELATONIN 3 MG TABLET PO PRN (17:03)
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
[2023-04-12] MEDS: APIXABAN 5 MG TAB PO SCH (20:20)
[2023-04-12] MEDS: ATORVASTATIN 20 MG TAB PO SCH (20:20)
[2023-04-13] MEDS: IPRATROPIUM-ALBUTEROL 3 ML NEB INHALATION SCH ×3 (03:33→09:47)
[2023-04-13] MEDS: oxyCODONE-APAP 10-325MG 1 EACH TAB PO PRN ×2 (03:46→09:18)
[2023-04-13] MEDS: carvediloL 3.125 MG TAB PO SCH (06:12)
[2023-04-13] MEDS: METHADONE 10 MG TAB PO PRN (06:13)
[2023-04-13] MEDS: PANTOPRAZOLE 40 MG TABLET PO SCH (06:13)
[2023-04-13] MEDS: LORazepam 0.5 MG TAB PO PRN (07:10)
[2023-04-13] MEDS: SODIUM CHLORIDE 0.65% NASAL SPRAY 44 ML BTL INTRANASAL SCH (09:09)
[2023-04-13] MEDS: TAMSULOSIN 0.4 MG CAP.ER.24H PO SCH (09:17)
[2023-04-13] MEDS: THIAMINE 100 MG TAB PO SCH (09:17)
[2023-04-13] MEDS: BICALUTAMIDE 50 MG TAB PO SCH (09:17)
[2023-04-13] MEDS: predniSONE 5 MG TAB PO SCH (09:18)
[2023-04-13] MEDS: APIXABAN 5 MG TAB PO SCH (09:18)
[2023-04-13 09:36] LABS: African American GFR (CKD) >90 (>60 ml/min/1.73 sqM); Anion Gap 5 mmol/L; Blood Urea Nitrogen 15 mg/dL (9-20); Calcium 7.2 mg/dL (8.4-10.2); Carbon Dioxide 22 mmol/L (22-30); Chloride 112 mmol/L (98-107); Glucose 113 mg/dL (74-99); Non-African American GFR(CKD) >90 (>60 ml/min/1.73 sqM); Potassium 4.5 mmol/L (3.5-5.1); Sodium 139 mmol/L (137-145)
[2023-04-13] MEDS: FORMOTEROL FUMARATE 20 MCG/2 ML NEBU INHALATION SCH ×2 (09:42→09:47)
[2023-04-13 11:22] VITALS: TEMP 98.8
[2023-04-13 12:10] VITALS: BP 141/70; PULSE 94; RESP 18
[2023-04-13] MEDS: HYDROmorphone 2 MG TAB PO PRN (12:20)
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
== END 2023-04-13 12:27 | disposition home or self-care (01) | DRG 378 ==
LOC: EC 13:30 → 3SCARD 16:08
PROVIDERS: ADMIT Hospitalist; ATTEND Hospitalist
PROC: 0DJ08ZZ Inspection of Upper Intestinal Tract, Via Natural or Artificial Opening Endoscopic (ICD-10-PCS; principal; 2023-04-12 07:50)
DX: K29.71 Gastritis, unspecified, with bleeding (principal); C34.90 Malignant neoplasm of unspecified part of unspecified bronchus or lung; C79.51 Secondary malignant neoplasm of bone; G82.20 Paraplegia, unspecified; K29.70 Gastritis, unspecified, without bleeding; J44.9 Chronic obstructive pulmonary disease, unspecified; I50.9 Heart failure, unspecified; I48.91 Unspecified atrial fibrillation; I25.10 Atherosclerotic heart disease of native coronary artery without angina pectoris; I11.0 Hypertensive heart disease with heart failure; N32.0 Bladder-neck obstruction; E78.5 Hyperlipidemia, unspecified; D64.9 Anemia, unspecified; F41.9 Anxiety disorder, unspecified; C61 Malignant neoplasm of prostate; G89.4 Chronic pain syndrome; G47.00 Insomnia, unspecified; N40.0 Benign prostatic hyperplasia without lower urinary tract symptoms; R63.0 Anorexia; Z95.5 Presence of coronary angioplasty implant and graft; Z92.3 Personal history of irradiation; Z92.21 Personal history of antineoplastic chemotherapy; Z87.891 Personal history of nicotine dependence; Z86.718 Personal history of other venous thrombosis and embolism; Z85.46 Personal history of malignant neoplasm of prostate; Z85.118 Personal history of other malignant neoplasm of bronchus and lung; Z80.1 Family history of malignant neoplasm of trachea, bronchus and lung; Z79.899 Other long term (current) drug therapy; Z79.82 Long term (current) use of aspirin; Z79.01 Long term (current) use of anticoagulants; Z51.5 Encounter for palliative care; I25.2 Old myocardial infarction; Z68.33 Body mass index [BMI] 33.0-33.9, adult
CPT/HCPCS: 36415; 43235; 51702; 74177; 80048; 80053; 81001; 82272; 83605; 83735; 85025; 85610; 85730; 86850; 86900; 86901; 87040; 93005; 94640; 96374; 99285

== ENCOUNTER → 2023-04-25 | Outpatient (CLI) | payer MEDICARE, OTHER ==
--- NOTE | 2023-04-28 12:01 | PE ---
EXAMINATION TYPE: PET CT fusion skull to thigh DATE OF EXAM: 04/25/2023 CLINICAL INDICATION:Male, 72 years old with history of C61 PROSTATE CANCER; TECHNIQUE: Following the intravenous administration of 4.3 mCi of Ga-68 Illuccix (PSMA), whole body images are performed from the skull base to the midthigh. Images are reviewed on the computer in th e coronal, axial, and sagittal planes. Reconstructed rotating images are created on independent work station and reviewed on the computer. A non-contrast CT is performed in conjunction with the PET sc an. CT DLP: 867 mGycm, Automated exposure control for dose reduction was used. COMPARISON: CT 04/11/2023., , PET/CT 04/30/2020. FINDINGS: Mediastinal SUV mean is 1.9. Hepatic parenchyma SUV mean is 2.3. SKULL BASE AND NECK: No suspicious radiotracer activity. CHEST, MEDIASTINUM, AND HILAR REGION: No suspicious radiotracer activity. ABDOMEN AND PELVIS: * Retroperitoneal lymph nodes with increased metabolic activity: Example includes. * Retroperitoneal max SUV 23.8 measuring 6 mm. * Left periaortic max SUV 14.3 measuring 11.1 mm. * Left external iliac max SUV 22.2 measuring up to 19 mm in short axis. * Heterogenous mass in the pelvis posterior lateral to the prostate gland measuring 5.4 x 5.5 cm max SUV 31.4. MUSCULOSKELETAL STRUCTURES: * Diffuse osseous metastatic disease throughout every bone visualized. Some of the lesions are expan sile rib lesions. Examples include: * Right femur 26.6, left femoral head 37.7, right sacrum 52.1, right humerus 61.1, left humerus 2.0, clivus of the skull 22.5 C2 spinous process 32.2, T1 vertebral body 53.2., Sternum 33.0, M 40.3, lef t mandible 15.4, * There is extensive uptake around the left hip intramedullary jakob max SUV 35.2 * There is at least one pathologic fracture of the posterior aspect of left rib 10. Possible other f ractures are visualized within the ribs with interval healing change/calcification. OTHER CT: There is loculated left pleural effusion streaky atelectasis in the right lung. Severe arth rosis of the coronary arteries. Atrophic kidneys bilaterally. Diffuse anasarca of the soft tissues. IMPRESSION: Progression of disease with innumerable metastatic foci throughout every bone visualized with large p elvic mass and retroperitoneal lymphadenopathy.
== END | disposition home or self-care (01) ==
LOC: RADPETMAIN 12:40
PROVIDERS: ATTEND Internal Medicine Hematology & Oncology
DX: C61 Malignant neoplasm of prostate (principal); R59.0 Localized enlarged lymph nodes; R19.00 Intra-abdominal and pelvic swelling, mass and lump, unspecified site
CPT/HCPCS: 78815; A9596

== ENCOUNTER 2023-05-02 12:53 | Inpatient (IN) | payer MEDICARE, OTHER ==
--- NOTE | 2023-05-02 13:20 | ED ---
General Adult HPI - General Chief complaint: Shortness of Breath Stated complaint: SALVADOR Time Seen by Provider: 05/02/23 13:05 Source: patient, EMS, RN notes reviewed, old records reviewed Mode of arrival: EMS Limitations: physical limitation - History of Present Illness Initial comments: This is a 72-year-old male who presents emergency Department with a history of COPD and 2 stent placements. Patient also was paralyzed from the waist down he states from prostate cancer and metastatic bone disease. Patient comes in today because he states last night he started having difficulty breathing and it was getting worse this morning she called EMS. According to EMS they gave him Solu- Medrol 125 and [address]. Patient is not on oxygen at homeat 95% on 3 L here patient denies any cough patient denies any fever chills. Patient is on eliquis but doesn't know what for. - Related Data Home Medications Medication Instructions Recorded Confirmed Ipratropium-Albuterol Nebulize 3 ml INHALATION RT-Q6H 07/11/21 04/11/23 [Duoneb 0.5 mg-3 mg/3 ml Soln] Atorvastatin [Lipitor] 20 mg PO HS 03/24/22 04/11/23 predniSONE 5 mg PO BID 02/08/23 04/11/23 Apixaban [Eliquis] 5 mg PO BID 03/10/23 04/11/23 Formoterol Fumarate [Perforomist] 20 mcg INHALATION RT-BID 03/10/23 04/11/23 Methadone HCl 10 mg PO BID PRN 03/10/23 04/11/23 Naloxone HCl [Narcan] 4 mg NASAL DIRECTED PRN 03/10/23 04/11/23 Sennosides [Senokot] 17.2 mg PO DAILY 03/10/23 04/11/23 Sodium Chloride [Mellette [place]] 1 spray EA NOSTRIL Q4H PRN 03/10/23 04/11/23 Thiamine [Vitamin B-1] 100 mg PO DAILY 03/10/23 04/11/23 methocarbamoL [Robaxin] 1,000 mg PO QID PRN 03/10/23 04/11/23 ALPRAZolam [Xanax] 0.25 mg PO BID PRN 04/11/23 04/11/23 HYDROmorphone HCL 8 mg PO Q4H PRN 04/11/23 04/11/23 Tamsulosin [Flomax] 0.4 mg PO DAILY 04/11/23 04/11/23 ondansetron HCL [Zofran] 8 mg PO DAILY PRN 04/11/23 04/11/23 oxyCODONE-APAP 10-325MG [Percocet 1 tab PO Q6H PRN 04/11/23 04/11/23 10-325 mg] Previous Rx's Medication Instructions Recorded Aspirin 81 mg PO DAILY tab 03/28/23 Bicalutamide [Casodex] 50 mg PO DAILY #30 tab 03/28/23 Psyllium Husk 100% [Metamucil 6 gm PO BID #60 packet 03/28/23 Packet] Pantoprazole [Protonix] 40 mg PO BID #60 tab 04/13/23 carvediloL [Coreg] 6.25 mg PO BID #60 tablet 04/13/23 Allergies Allergy/AdvReac Type Severity Reaction Status Date / Time No Known Allergies Allergy Verified 05/02/23 13:11 Review of Systems ROS Statement: Those systems with pertinent positive or pertinent negative responses have been documented in the HPI. ROS Other: All systems not noted in ROS Statement are negative. Past Medical History Past Medical History: Cancer, Chest Pain / Angina, Heart Failure, COPD, Hypertension, Myocardial Infarction (NC), Skin Disorder Additional Past Medical History / Comment(s): chronic back pain, NC spring 2015; pt has history of PVD with LLE cellulitis, states he had vascular surgery to improve healing, lung CA, had chemo and radiation immunotherapy 2020 Last Myocardial Infarction Date:: 2015 History of Any Multi-Drug Resistant Organisms: MRSA Date of last positivie culture/infection: 06/25/17 MDRO Source:: LEFT LEG Past Surgical History: Heart Catheterization With Stent, Hernia Repair, Orthopedic Surgery Additional Past Surgical History / Comment(s): left femur ORIF 40 years ago and luisa shoulder surgery- rotator repair, left leg bypass; two stents placed in November 2019, hernia repair 2019 Past Anesthesia/Blood Transfusion Reactions: No Reported Reaction Date of Last Stent Placement:: November 2019 Past Psychological History: Anxiety Smoking Status: Former smoker Past Alcohol Use History: None Reported Past Drug Use History: None Reported - Past Family History Father Additional Family Medical History / Comment(s): lung cancer Brother(s) Additional Family Medical History / Comment(s): lung cancer General Exam - General Exam Comments Initial Comments: GENERAL: Patient is well-developed and well-nourished. Patient is nontoxic and well- hydrated and is in mild distress. ENT: Neck is soft and supple. No significant lymphadenopathy is noted. Oropharynx is clear. Moist mucous membranes. Neck has full range of motion without eliciting any pain. EYES: The sclera were anicteric and conjunctiva were pink and moist. Extraocular movements were intact and pupils were equal round and reactive to light. Eyelids were unremarkable. PULMONARY: Unlabored respirations. Good breath sounds bilaterally. Slight expiratory wheezing CARDIOVASCULAR: There is a regular rate and rhythm without any murmurs gallops or rubs. ABDOMEN: Soft and nontender with normal bowel sounds. No palpable organomegaly was noted. There is no palpable pulsatile mass. SKIN: Skin is clear with no lesions or rashes and otherwise unremarkable. NEUROLOGIC: Patient is alert and oriented x3. Cranial nerves II through XII are grossly intact. Patient is unable to move his legs states this is something his been ongoing since January MUSCULOSKELETAL: Upper extremities have full range of motion. LYMPHATICS: No significant lymphadenopathy is noted PSYCHIATRIC: Normal psychiatric evaluation. Limitations: physical limitation Course Vital Signs 05/02/23 05/02/23 05/02/23 13:06 14:05 14:08 Temperature 99.0 F 98.9 F Pulse Rate 91 91 Respiratory 18 20 Rate Blood Pressure 111/64 111/55 O2 Sat by Pulse 95 91 L 96 Oximetry 05/02/23 15:04 Temperature Pulse Rate 92 Respiratory 20 Rate Blood Pressure 102/66 O2 Sat by Pulse 94 L Oximetry Medical Decision Making - Medical Decision Making EKG as interpreted by myself. EKG shows a sinus rhythm at 91 bpm MT interval is 156 QRS is 106 QT interval 374 QTC is 423. Patient's EKG shows no ST segment elevation or depression Was pt. sent in by a medical professional or institution (, PA, BROADCAST CORRESPONDENT, urgent care, hospital, or usp...) When possible be specific @ -No Did you speak to anyone other than the patient for history (EMS, parent, family, police, friend...)? What history was obtained from this source @ -No Did you review nursing and triage notes (agree or disagree)? Why? @ -I reviewed and agree with nursing and triage notes Were old charts reviewed (outside hosp., previous admission, EMS record, old EKG, old radiological studies, urgent care reports/EKG's, usp records)? Report findings @ -I reviewed her prior charts and prior lab work on this patient. Differential Diagnosis (chest pain, altered mental status, abdominal pain women, abdominal pain men, vaginal bleeding, weakness, fever, dyspnea, syncope, headache, dizziness, GI bleed, back pain, seizure, CVA, palpatations, mental health, musculoskeletal)? @ -Differential Dyspnea: Coronary syndrome, arrhythmia, tamponade, asthma, COPD, pulmonary embolism, pneumonia, pneumothorax, pulmonary effusion, anaphylaxis, diabetic ketoacidosis, flailed chest, pulmonary contusion, diaphragmatic rupture, anemia, neuromuscular, this is not meant to be an all-inclusive list. EKG interpreted by me (3pts min.). @ -As above X-rays interpreted by me (1pt min.). @ -Chest x-ray shows pulmonary edema with a large pleural effusion on the right CT interpreted by me (1pt min.). @ -None done U/S interpreted by me (1pt. min.). @ -None done What testing was considered but not performed or refused? (CT, X-rays, U/S, labs)? Why? @ -None What meds were considered but not given or refused? Why? @ -None Did you discuss the management of the patient with other professionals (professionals i.e. , PA, BROADCAST CORRESPONDENT, lab, RT, psych nurse, hospice social worker, access service representative, teacher, seal delivery vehicle officer, hospice case manager)? Give summary @ [facility] the patient wrote admitting orders Was smoking cessation discussed for >3mins.? @ -No Was critical care preformed (if so, how long)? @ -No Were there social determinants of health that impacted care today? How? (Homelessness, low income, unemployed, alcoholism, drug addiction, transportation, low edu. Level, literacy, decrease access to med. care, retirement, rehab)? @ -No Was there de-escalation of care discussed even if they declined (Discuss DNR or withdrawal of care, Hospice)? DNR status @ -No What co-morbidities impacted this encounter? (DM, HTN, Smoking, COPD, CAD, Cancer, CVA, ARF, Chemo, Hep., AIDS, mental health diagnosis, sleep apnea, morbid obesity)? @ -None Was patient admitted / discharged? Hospital course, mention meds given and route, prescriptions, significant lab abnormalities, going to OR and other pertinent info. @ -Patient was given Lasix in the emergency department there was no Nitropaste consecutive the fact the patient's blood pressure was systolic 111. Patient was feeling better in the emergency department. Patient's pulse ox dropped into the low 80s without oxygen. Patient is not on oxygen at home. I spoke with [facility] he agreed to admit the patient admitted the patient I wrote admitting orders I Undiagnosed new problem with uncertain prognosis? @ -No Drug Therapy requiring intensive monitoring for toxicity (Heparin, Nitro, Insulin, Cardizem)? @ -No Were any procedures done? @ -No Diagnosis/symptom? @ -Pulmonary edema Acute, or Chronic, or Acute on Chronic? @ -Acute Uncomplicated (without systemic symptoms) or Complicated (systemic symptoms)? @ -Complicated Side effects of treatment? @ -No Exacerbation, Progression, or Severe Exacerbation? @ -No Poses a threat to life or bodily function? How? (Chest pain, USA, NC, pneumonia, PE, COPD, DKA, ARF, appy, cholecystitis, CVA, Diverticulitis, Homicidal, Suicidal, threat to staff... and all critical care pts) @ -Yes this could lead to hypoxia and then and dysfunction Diagnosis/symptom? @ -COPD Acute, or Chronic, or Acute on Chronic? @ -Acute Uncomplicated (without systemic symptoms) or Complicated (systemic symptoms)? @ -default Side effects of treatment? @ -none Exacerbation, Progression, or Severe Exacerbation] @ -no Poses a threat to life or bodily function? @ -no - Lab Data Result diagrams: 05/02/23 13:31 05/02/23 13:31 Lab Results 05/02/23 05/02/23 05/02/23 Range/Units 13:31 13:31 13:31 WBC 4.8 (3.8-10.6) k/uL RBC 2.57 L (4.30-5.90) m/uL Hgb 7.5 L (13.0-17.5) gm/dL Hct 24.1 L (39.0-53.0) % MCV 93.7 (80.0-100.0) fL MCH 29.3 (25.0-35.0) pg MCHC 31.3 (31.0-37.0) g/dL RDW 20.3 H (11.5-15.5) % Plt Count 217 (150-450) k/uL MPV 7.4 Neutrophils % 87 % Lymphocytes % 4 % Monocytes % 5 % Eosinophils % 2 % Basophils % 1 % Neutrophils # 4.2 (1.3-7.7) k/uL Lymphocytes # 0.2 L (1.0-4.8) k/uL Monocytes # 0.3 (0-1.0) k/uL Eosinophils # 0.1 (0-0.7) k/uL Basophils # 0.0 (0-0.2) k/uL Hypochromasia Marked Anisocytosis Moderate Macrocytosis Slight PT 11.4 (10.0-12.5) sec INR 1.0 (<1.2) APTT 24.7 (22.0-30.0) sec Sodium 137 (137-145) mmol/L Potassium 4.2 (3.5-5.1) mmol/L Chloride 107 (98-107) mmol/L Carbon Dioxide 23 (22-30) mmol/L Anion Gap 7 mmol/L BUN 15 (9-20) mg/dL Creatinine 0.55 L (0.66-1.25) mg/dL Est GFR (CKD-EPI)AfAm >90 (>60 ml/min/1.73 sqM) Est GFR (CKD-EPI)NonAf >90 (>60 ml/min/1.73 sqM) Glucose 142 H (74-99) mg/dL Plasma Lactic Acid Elder (0.7-2.0) mmol/L Calcium 7.3 L (8.4-10.2) mg/dL Magnesium 1.8 (1.6-2.3) mg/dL Total Bilirubin 0.4 (0.2-1.3) mg/dL AST 30 (17-59) U/L ALT 11 (4-49) U/L Alkaline Phosphatase 462 H (38-126) U/L Troponin I (0.000-0.034) ng/mL NT-Pro-B Natriuret Pep 2240 pg/mL Total Protein 4.7 L (6.3-8.2) g/dL Albumin 2.5 L (3.5-5.0) g/dL Influenza Type A (PCR) (Not Detectd) Influenza Type B (PCR) (Not Detectd) RSV (PCR) (Not Detectd) SARS-CoV-2 (PCR) (Not Detectd) 05/02/23 05/02/23 05/02/23 Range/Units 13:31 13:31 14:08 WBC (3.8-10.6) k/uL RBC (4.30-5.90) m/uL Hgb (13.0-17.5) gm/dL Hct (39.0-53.0) % MCV (80.0-100.0) fL MCH (25.0-35.0) pg MCHC (31.0-37.0) g/dL RDW (11.5-15.5) % Plt Count (150-450) k/uL MPV Neutrophils % % Lymphocytes % % Monocytes % % Eosinophils % % Basophils % % Neutrophils # (1.3-7.7) k/uL Lymphocytes # (1.0-4.8) k/uL Monocytes # (0-1.0) k/uL Eosinophils # (0-0.7) k/uL Basophils # (0-0.2) k/uL Hypochromasia Anisocytosis Macrocytosis PT (10.0-12.5) sec INR (<1.2) APTT (22.0-30.0) sec Sodium (137-145) mmol/L Potassium (3.5-5.1) mmol/L Chloride (98-107) mmol/L Carbon Dioxide (22-30) mmol/L Anion Gap mmol/L BUN (9-20) mg/dL Creatinine (0.66-1.25) mg/dL Est GFR (CKD-EPI)AfAm (>60 ml/min/1.73 sqM) Est GFR (CKD-EPI)NonAf (>60 ml/min/1.73 sqM) Glucose (74-99) mg/dL Plasma Lactic Acid Elder 0.7 (0.7-2.0) mmol/L Calcium (8.4-10.2) mg/dL Magnesium (1.6-2.3) mg/dL Total Bilirubin (0.2-1.3) mg/dL AST (17-59) U/L ALT (4-49) U/L Alkaline Phosphatase (38-126) U/L Troponin I 0.017 (0.000-0.034) ng/mL NT-Pro-B Natriuret Pep pg/mL Total Protein (6.3-8.2) g/dL Albumin (3.5-5.0) g/dL Influenza Type A (PCR) Not Detected (Not Detectd) Influenza Type B (PCR) Not Detected (Not Detectd) RSV (PCR) Not Detected (Not Detectd) SARS-CoV-2 (PCR) Not Detected (Not Detectd) Disposition Clinical Impression: Pulmonary edema, COPD (chronic obstructive pulmonary disease) Disposition: ADMITTED IP TO THIS HOSP Referrals: Chris Bellamy MD [Primary Care Provider] - 1-2 days Time of Disposition: 15:20
[2023-05-02 13:59] LABS: Anisocytosis Moderate; Basophils % (A) 1 %; Eosinophils # (A) 0.1 k/uL (0-0.7); Eosinophils % (A) 2 %; HCT 24.1 % (39.0-53.0); HGB 7.5 gm/dL (13.0-17.5); Hypochromasia Marked; Lymphocytes # (A) 0.2 k/uL (1.0-4.8); Lymphocytes % (A) 4 %; MCH 29.3 pg (25.0-35.0); MCHC 31.3 g/dL (31.0-37.0); MCV 93.7 fL (80.0-100.0); Macrocytosis Slight; Mean Platelet Volume 7.4; Monocytes # (A) 0.3 k/uL (0-1.0); Monocytes % (A) 5 %; Neutrophils # (A) 4.2 k/uL (1.3-7.7); Neutrophils % (A) 87 %; Platelet Count 217 k/uL (150-450); RBC 2.57 m/uL (4.30-5.90); RDW 20.3 % (11.5-15.5); WBC 4.8 k/uL (3.8-10.6)
[2023-05-02 14:09] LABS: Partial Thromboplastin Time 24.7 sec (22.0-30.0); Prothrombin Time 11.4 sec (10.0-12.5)
[2023-05-02 14:12] LABS: ALT 11 U/L (4-49); AST 30 U/L (17-59); African American GFR (CKD) >90 (>60 ml/min/1.73 sqM); Albumin 2.5 g/dL (3.5-5.0); Alkaline Phosphatase 462 U/L (38-126); Anion Gap 7 mmol/L; Blood Urea Nitrogen 15 mg/dL (9-20); Calcium 7.3 mg/dL (8.4-10.2); Carbon Dioxide 23 mmol/L (22-30); Chloride 107 mmol/L (98-107); Glucose 142 mg/dL (74-99); Magnesium 1.8 mg/dL (1.6-2.3); Non-African American GFR(CKD) >90 (>60 ml/min/1.73 sqM); Potassium 4.2 mmol/L (3.5-5.1); Sodium 137 mmol/L (137-145); Total Bilirubin 0.4 mg/dL (0.2-1.3); Total Protein 4.7 g/dL (6.3-8.2)
[2023-05-02 14:21] LABS: NT-Pro-B-Type Natriuretic Pept 2240 pg/mL
--- NOTE | 2023-05-02 14:36 | XR ---
EXAMINATION TYPE: XR chest 2V DATE OF EXAM: 05/02/2023 COMPARISON: 04/25/2023, 03/11/2013 HISTORY: Shortness of breath FINDINGS: There are bilateral pleural effusions with cardiomegaly and bibasilar infiltrate. There is a diffuse interstitial pattern. Bilateral shoulder arthropathy with rotator cuff repair surgery in the right. Hypertrophic and degenerative change of the spine. IMPRESSION: 1. Pattern is most typical of CHF favored over pneumonia correlate clinically. 2. Cardiomegaly can be on the basis of cardiac disease or pericardial effusion.
[2023-05-02] MEDS ORDERED: FUROSEMIDE 10 MG/ML 10 ML VIAL IV STA (15:05)
[2023-05-02] MEDS ORDERED: BENZONATATE 100 MG CAP PO PRN (15:16)
[2023-05-02] MEDS ORDERED: ACETAMINOPHEN TAB 325 MG TAB PO PRN (15:16)
[2023-05-02] MEDS ORDERED: NALOXONE 0.4 MG/ML 1 ML VIAL IVP PRN (15:16)
[2023-05-02] MEDS: predniSONE 20 MG TAB PO SCH (15:26)
--- NOTE | 2023-05-02 16:33 | CT ---
EXAMINATION TYPE: CT lumbar spine w con DATE OF EXAM: 05/02/2023 COMPARISON: CT lumbar spine September 10, 2019 HISTORY: Lower extremity weakness, evaluate for cord compression CT DLP: 1328.6 mGycm Automated exposure control for dose reduction was used. CONTRAST: CT scan of the lumbar is performed with IV Contrast, patient injected with 100 mL of Isovue 300. Enhanced CT of the lumbar spine was performed. Bone and soft tissue window settings are submitted as well as coronal and sagittal reconstructions. There are 5 lumbar type vertebra assuming hypoplastic bilateral T12 ribs. There is persistent levocon vex scoliosis centered at L3-L4 level. Moderate compression type fracture at L2 level is redemonstrat ed. There is new heterogeneous sclerosis through the T12 vertebra and also involving the right aspect of the L4 vertebra. Additional areas of sclerosis are seen. There is slight posterior retropulsion a t the inferior posterior L2 level into the spinal canal similar to prior. No new significant spinal c anal effacement or compression is identified. There is multilevel vacuum disc phenomenon and disc spa ce narrowing throughout the thoracolumbar spine redemonstrated. There is multilevel facet arthropathy greatest in the lower lumbar spine redemonstrated. There is metallic stent in the left common iliac vein now identified. Trace ascites in the lower abdomen is present. Visualized liver is low dense sug gesting fatty infiltration. IMPRESSION: No new significant spinal canal stenosis or compression. Vague sclerotic areas are now pr esent raising concern for possible sclerotic metastatic disease. Correlate clinically. Consider whole body bone scan evaluation.
[2023-05-02] MEDS ORDERED: ONDANSETRON ODT 8 MG TAB.RAPDIS PO PRN (17:57)
--- NOTE | 2023-05-02 19:16 | XR ---
EXAMINATION: XR chest 1V DATE AND TIME: 05/02/2023 6:58 PM CLINICAL INDICATION: PHH; post thoracentesis TECHNIQUE: Portable AP upright COMPARISON: 05/02/2023 FINDINGS: There is no pneumothorax. There are ill-defined large pulmonary consolidations in several areas of the mid and lower lung zones bilaterally. There is silhouetting of the hemidiaphragms bilaterally, consistent with bilateral lowe r lung zone airlessness and bilateral pleural effusions. The cardiac silhouette is prominently enlarged, unchanged. The skeletal structures and soft tissues are negative for acute findings. IMPRESSION: Post thoracentesis CXR.
--- NOTE | 2023-05-02 19:18 | P.CNPUL ---
History of Present Illness Consult date: 05/02/23 Reason for consult: dyspnea History of present illness: Patient is a 72-year-old white male with past medical history significant for known squamous cell lung carcinoma diagnosed March 2020, s/p chemo and radiation, poor tolerance to immunotherapy, right-sided pleural effusion with previous thoracentesis, chronic obstructive pulmonary disease, congestive heart failure, hypertension, chronic back pain, peripheral vascular occlusive disease, coronary artery disease with previous stent, and is an ex smoker. Few months ago , the patient was admitted for left thigh pain. CT of the pelvis and left femur showed focal sclerosis in the region of the greater trochanter of the hip with cortical discontinuity suspicious for metastatic lesion, there was also vague sclerosis involving the left iliac wing which could reflect a site of additional sclerotic metastatic lesion. There was also a significant enlargement of the prostate gland with glandular irregularity measuring 8.5 x 6.5 cm. The patient was transferred out, and reportedly had biopsies performed at [facility]. The patient states that it was positive for metastatic prostate cancer. Patient has been reportedly started on Casodex for his prostate CA. His oncologist is Dr. Echeverria scan was done on 04/25/2023 and the patient was found to have diffuse bony metastatic disease throughout every visualized bone and some of the lesions on exposed to the rib lesions. The patient also has disease in his right femur, left femur had, right sacrum, right humerus, left humerus, skeletal, C2 spinous processes, T1 vertebral body, sternum, the patient also has retroperitoneal lymph node involvement. In addition, the patient was found to have bilateral pleural effusion left more than right. The patient came into the emergency department today because of worsening shortness of breath. Chest x-ray showed cardiomegaly, increased 4 vessel markings in addition to a moderate-sized left-sided pleural effusion. Based on that, I performed a bedside thoracentesis on this patient in emergency department and a total of 850 mL of pleural fluid was aspirated without any complications. The patient is resting comfortably in bed. He has skeletal bony pain. No pleurisy. No hemoptysis. No cough or sputum production. No chest tightness. No wheezing. Is currently on oxygen 2 L/m nasal cannula. Patient has a hemoglobin of 7.5 with a white cell count of 4.8. Normal coagulation profile. Urine is a 50 with a creatinine of 0.8. Normal LFTs. Alkaline phosphatase is elevated related to bony metastases. The vital screening was negative. Troponins are negative. ProBNP level is 2240. His echocardiogram from January 2023 shows a preserved LV function. LV function is in order of 45-50%. No evidence of any pericardial effusion. Mild LVH. Review of Systems Constitutional: Reports fatigue, Reports poor appetite, Reports weakness, Reports weight loss Eyes: denies as per HPI, denies blurred vision, denies bulging eye, denies decreased vision, denies diplopia, denies discharge, denies dry eye, denies irritation, denies itching, denies pain, denies photophobia, denies loss of peripheral vision, denies loss of vision, denies tunnel vision/blind spots Ears: deny: decreased hearing, ear discharge, earache, tinnitus Ears, nose, mouth and throat: Reports as per HPI Breasts: absent: as per HPI, gynecomastia Cardiovascular: Reports decreased exercise tolerance, Reports dyspnea on exert ion, Reports irregular heart beat, Reports orthopnea, Reports shortness of breath Respiratory: Reports dyspnea, Reports home oxygen Gastrointestinal: Reports as per HPI Genitourinary: Reports incontinence, Reports urinary retention Musculoskeletal: Reports as per HPI, Reports gait dysfunction, Reports muscle weakness Musculoskeletal: absent: ankle pain, ankle stiffness, ankle swelling Integumentary: Reports as per HPI Neurological: Reports gait dysfunction Psychiatric: Reports as per HPI Endocrine: Reports as per HPI Hematologic/Lymphatic: Reports as per HPI Allergic/Immunologic: Reports as per HPI Past Medical History Past Medical History: Cancer, Chest Pain / Angina, Heart Failure, COPD, Hypertension, Myocardial Infarction ([place]), Skin Disorder Additional Past Medical History / Comment(s): chronic back pain, [place] spring 2015; pt has history of PVD with LLE cellulitis, states he had vascular surgery to improve healing, lung CA, had chemo and radiation immunotherapy 2020 Last Myocardial Infarction Date:: 2015 History of Any Multi-Drug Resistant Organisms: MRSA Date of last positivie culture/infection: 06/25/17 MDRO Source:: LEFT LEG Past Surgical History: Heart Catheterization With Stent, Hernia Repair, Orthopedic Surgery Additional Past Surgical History / Comment(s): left femur ORIF 40 years ago and luisa shoulder surgery- rotator repair, left leg bypass; two stents placed in November 2019, hernia repair 2019 Past Anesthesia/Blood Transfusion Reactions: No Reported Reaction Date of Last Stent Placement:: November 2019 Past Psychological History: Anxiety Smoking Status: Former smoker Past Alcohol Use History: None Reported Past Drug Use History: None Reported - Past Family History Father Additional Family Medical History / Comment(s): lung cancer Brother(s) Additional Family Medical History / Comment(s): lung cancer Medications and Allergies Home Medications Medication Instructions Recorded Confirmed Type Ipratropium-Albuterol Nebulize 3 ml INHALATION RT-Q6H 07/11/21 05/02/23 History [Duoneb 0.5 mg-3 mg/3 ml Soln] Atorvastatin [Lipitor] 20 mg PO DAILY 03/24/22 05/02/23 History predniSONE 5 mg PO BID 02/08/23 05/02/23 History Apixaban [Eliquis] 5 mg PO BID 03/10/23 05/02/23 History Formoterol Fumarate [Perforomist] 20 mcg INHALATION RT-BID 03/10/23 05/02/23 History Methadone HCl 10 mg PO BID PRN 03/10/23 05/02/23 History Naloxone HCl [Narcan] 4 mg NASAL DIRECTED PRN 03/10/23 05/02/23 History Thiamine [Vitamin B-1] 100 mg PO DAILY 03/10/23 05/02/23 History methocarbamoL [Robaxin] 1,000 mg PO QID PRN 03/10/23 05/02/23 History Aspirin 81 mg PO DAILY tab 03/28/23 05/02/23 Rx Bicalutamide [Casodex] 50 mg PO DAILY #30 tab 03/28/23 05/02/23 Rx ALPRAZolam [Xanax] 0.25 mg PO BID PRN 04/11/23 05/02/23 History HYDROmorphone HCL 8 mg PO Q4H PRN 04/11/23 05/02/23 History Tamsulosin [Flomax] 0.4 mg PO DAILY 04/11/23 05/02/23 History ondansetron HCL [Zofran] 8 mg PO DAILY PRN 04/11/23 05/02/23 History oxyCODONE-APAP 10-325MG [Percocet 1 tab PO Q6H PRN 04/11/23 05/02/23 History 10-325 mg] Pantoprazole [Protonix] 40 mg PO BID #60 tab 04/13/23 05/02/23 Rx carvediloL [Coreg] 6.25 mg PO BID #60 tablet 04/13/23 05/02/23 Rx Amoxic-Pot Clav 500-125 mg 1 tab PO Q12HR 05/02/23 05/02/23 History [Augmentin 500-125 mg] Docusate [Colace] 300 mg PO BID 05/02/23 05/02/23 History Famotidine [Pepcid] 20 mg PO BID 05/02/23 05/02/23 History Multivit-Mins/Iron/Folic/Lycop 1 tab PO DAILY 05/02/23 05/02/23 History [Centrum Men's Tablet] Ondansetron Odt [Zofran Odt] 8 mg PO BID PRN 05/02/23 05/02/23 History Allergies Allergy/AdvReac Type Severity Reaction Status Date / Time No Known Allergies Allergy Verified 05/02/23 15:30 Physical Exam Vitals: Vital Signs Temp Pulse Resp BP Pulse Ox 05/02/23 17:02 92 19 102/64 96 05/02/23 16:30 92 20 118/68 97 05/02/23 15:04 92 20 102/66 94 L 05/02/23 14:08 98.9 F 91 20 111/55 96 05/02/23 14:05 91 L 05/02/23 13:28 20 81 L 05/02/23 13:06 99.0 F 91 18 111/64 95 Intake and Output 05/02/23 05/02/23 05/02/23 06:59 14:59 22:59 Output Total 1700 Balance -1700 Output: Urine 1700 Uretheral (Benjamin) 1700 Other: Weight 90.718 kg GENERAL EXAM: Alert, calm and cooperative 72-year-old male, comfortable in no acute distress, the patient is currently on 4 L of oxygen by nasal cannula HEAD: Normocephalic and atraumatic EYES: Normal reaction of pupils, equal size. NOSE: Clear with pink turbinates. THROAT: No erythema or exudates. NECK: No masses, no JVD. CHEST: No chest wall deformity. LUNGS: Breath sounds are diminished in the left lung bases along with dullness to percussion and bronchial breath sounds. There is no wheeze, rhonchi or dullness. No conversational dyspnea. CVS: S1 and S2 normal with no audible murmur, regular rhythm. No extra heart sounds ABDOMEN: Obese abdomen, no hepatosplenomegaly, active bowel sounds, no guarding or rigidity. SPINE: No scoliosis or deformity SKIN: No rashes CENTRAL NERVOUS SYSTEM: Left lower extremity weakness. No other focal deficits. EXTREMITIES: There is no peripheral edema. No clubbing, or cyanosis. Peripheral pulses are intact. Results - Laboratory Findings CBC and BMP: 05/02/23 13:31 05/02/23 13:31 PT/INR, D-dimer PT 11.4 sec (10.0-12.5) 05/02/23 13:31 INR 1.0 (<1.2) 05/02/23 13:31 Abnormal lab findings: Abnormal Labs 05/02/23 05/02/23 13:31 13:31 RBC 2.57 L Hgb 7.5 L Hct 24.1 L RDW 20.3 H Lymphocytes # 0.2 L Creatinine 0.55 L Glucose 142 H Calcium 7.3 L Alkaline Phosphatase 462 H Total Protein 4.7 L Albumin 2.5 L - Diagnostic Findings Chest x-ray: image reviewed Assessment and Plan Plan: Moderate-sized left-sided pleural effusion, rule out malignant effusion.. Acute hypoxic respiratory failure currently on 4 L of oxygen by nasal cannula Shortness of breath like is secondary to above Metastatic prostate cancer with extensive skeletal disease involvement with metastases. Please refer to the results of the most recent PET/CT Pathologic fracture involving the right greater trochanter fracture/subacute prostate cancer with osseous metastasis. Initiated on Casodex Chronic back pain History of squamous cell lung cancer with previous chemo/radiation, intolerant immunotherapy History of recurrent right-sided pleural effusion, most recent thoracentesis done on 03/25/2022. Negative for cytologically malignant cells at that time. Chest x-ray this admission shows a right lower lobe effusion and possible superimposed infiltrate. There were destructive left sided rib lesions. Chronic obstructive pulmonary disease, stable Normocytic normochromic anemia, no obvious evidence of acute blood loss Coronary artery disease with previous stent placement Hyperlipidemia Benign essential hypertension Peripheral vascular occlusive disease. History DVT, anticoagulated on Eliquis Ex smoker Constipation Plan Diagnostic and therapeutic thoracentesis of the left lung was done and a total of 860 mL of fluid aspirated without any complication. The fluid was sent for cultures, cytology and chemistry. Obtain a follow-up chest x-ray May continue anticoagulation Oncology follow-up
--- NOTE | 2023-05-02 19:19 | P.PCN ---
Date of Procedure: 05/02/23 Preoperative Diagnosis: Pleural effusion, left Postoperative Diagnosis: Pleural effusion, left Procedure(s) Performed: Thoracentesis, left Anesthesia: local Surgeon: Hannah Brumfield Estimated Blood Loss (ml): 0 Pathology: other Condition: stable Disposition: floor Operative Findings: A time out was performed and the chest x-ray was reviewed, the appropriate side was confirmed and marked. My hands were washed immediately prior to the procedure. I wore a surgical cap, mask with protective eyewear, sterile gown and sterile gloves throughout the procedure. The patient was prepped and draped in a sterile manner using chlorhexidine scrub after the appropriate level was percussed and confirmed by ultrasound. 1% lidocaine was used to anesthesize the skin, subcutaneous tissue, superior aspect of the rib periosteum and parietal pleura. A finder needle was then introduced over the superior aspect of the rib to locate the pleural fluid; 2colored fluid was aspirated at a depth of approximately 2 cm. A 10-blade scalpel was used to tonia the skin at the insertion site. The [id number] needle was then introduced through the skin incision into the pleural space using negative aspiration pressure and the red colometric indicator to confirm appropriate positioning of the needle. The thoracentesis catheter was then threaded without difficulty. 850 ml of turbid colored fluid was removed without difficulty. The catheter was then removed. No immediate complications were noted during the procedure. A post-procedure chest x-ray is pending at the time of this note. The fluid will be sent for studies. Estimated blood loss is 0cc
[2023-05-02] MEDS: APIXABAN 5 MG TAB PO SCH (20:08)
[2023-05-02] MEDS: carvediloL 6.25 MG TAB PO SCH (20:08)
[2023-05-02] MEDS: ALPRAZolam 0.25 MG TAB PO PRN (20:08)
[2023-05-02] MEDS: DOCUSATE 100 MG CAP PO SCH (20:08)
[2023-05-02] MEDS: PANTOPRAZOLE 40 MG TABLET PO SCH (20:09)
[2023-05-02] MEDS: oxyCODONE-APAP 10-325MG 1 EACH TAB PO PRN (20:09)
[2023-05-02] MEDS: guaiFENesin 600 MG TABLET.ER PO SCH (20:09)
[2023-05-02] MEDS: FAMOTIDINE 20 MG TAB PO SCH (20:09)
[2023-05-02] MEDS ORDERED: methocarbamoL 500 MG TAB PO PRN (22:00)
[2023-05-02] MEDS: METHADONE 10 MG TAB PO PRN (23:33)
[2023-05-02] MEDS: DOXYCYCLINE 100 MG CAP PO SCH (23:33)
[2023-05-02] MEDS: FUROSEMIDE 10 MG/ML 2 ML VIAL IV SCH (23:33)
[2023-05-03] MEDS ORDERED: ZINC OXIDE PASTE (Z-GUARD) 1 APPLIC APPLIC TOPICAL PRN (02:51)
[2023-05-03] MEDS: oxyCODONE-APAP 10-325MG 1 EACH TAB PO PRN ×2 (06:00→23:32)
[2023-05-03] MEDS: carvediloL 6.25 MG TAB PO SCH ×2 (06:00→14:15)
[2023-05-03] MEDS: PANTOPRAZOLE 40 MG TABLET PO SCH ×2 (06:00→14:15)
[2023-05-03] MEDS: METHADONE 10 MG TAB PO PRN (06:24)
[2023-05-03] MEDS: DOCUSATE 100 MG CAP PO SCH ×2 (08:04→20:29)
[2023-05-03] MEDS: guaiFENesin 600 MG TABLET.ER PO SCH (08:04)
[2023-05-03] MEDS: DOXYCYCLINE 100 MG CAP PO SCH (08:04)
[2023-05-03] MEDS: FAMOTIDINE 20 MG TAB PO SCH (08:04)
[2023-05-03] MEDS: TAMSULOSIN 0.4 MG CAP.ER.24H PO SCH (08:04)
[2023-05-03] MEDS: FUROSEMIDE 10 MG/ML 2 ML VIAL IV SCH (08:05)
[2023-05-03] MEDS: predniSONE 20 MG TAB PO SCH (08:05)
[2023-05-03] MEDS: ATORVASTATIN 20 MG TAB PO SCH (08:05)
[2023-05-03] MEDS: APIXABAN 5 MG TAB PO SCH (08:05)
[2023-05-03] MEDS: HYDROmorphone 2 MG TAB PO PRN ×3 (08:21→17:46)
--- NOTE | 2023-05-03 08:40 | XR ---
EXAMINATION TYPE: XR chest 1V portable DATE OF EXAM: 05/03/2023 COMPARISON: 05/02/2023 HISTORY: shortness of breath TECHNIQUE: Single frontal view of the chest is obtained. FINDINGS: Bilateral consolidation greater on the right with small effusion. Volume loss is seen on t he right and the heart is enlarged with atherosclerotic change aorta. Postsurgical change shoulders w ith bilateral AC joint arthropathy. Hypertrophic and degenerative change of the spine. IMPRESSION: Bilateral infiltrate and pleural effusion stable.
[2023-05-03 08:58] LABS: Anisocytosis Moderate; HCT 25.5 % (39.0-53.0); HGB 7.7 gm/dL (13.0-17.5); Hypochromasia Marked; MCH 28.6 pg (25.0-35.0); MCV 95.5 fL (80.0-100.0); Macrocytosis Slight; Mean Platelet Volume 7.5; Platelet Count 225 k/uL (150-450); RBC 2.68 m/uL (4.30-5.90); RDW 20.1 % (11.5-15.5)
[2023-05-03 09:06] LABS: NT-Pro-B-Type Natriuretic Pept 2350 pg/mL
[2023-05-03 10:13] LABS: African American GFR (CKD) >90 (>60 ml/min/1.73 sqM); Anion Gap 8 mmol/L; Blood Urea Nitrogen 15 mg/dL (9-20); Calcium 6.9 mg/dL (8.4-10.2); Carbon Dioxide 27 mmol/L (22-30); Chloride 103 mmol/L (98-107); Glucose 117 mg/dL (74-99); Non-African American GFR(CKD) >90 (>60 ml/min/1.73 sqM); Potassium 4.2 mmol/L (3.5-5.1); Sodium 138 mmol/L (137-145)
[2023-05-03 10:26] LABS: C Reactive Protein 12.4 mg/dL (<1.0)
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
[2023-05-03 12:40] VITALS: BMI 30.3
[2023-05-03] MEDS: BICALUTAMIDE 50 MG TAB PO SCH (14:43)
--- NOTE | 2023-05-03 16:32 | P.PN ---
Subjective Progress Note Date: 05/03/23 Patient is a 72-year-old white male with past medical history significant for known squamous cell lung carcinoma diagnosed March 2020, s/p chemo and radiation, poor tolerance to immunotherapy, right-sided pleural effusion with previous thoracentesis, chronic obstructive pulmonary disease, congestive heart failure, hypertension, chronic back pain, peripheral vascular occlusive disease, coronary artery disease with previous stent, and is an ex smoker. Few months ago , the patient was admitted for left thigh pain. CT of the pelvis and left femur showed focal sclerosis in the region of the greater trochanter of the hip with cortical discontinuity suspicious for metastatic lesion, there was also vague sclerosis involving the left iliac wing which could reflect a site of additional sclerotic metastatic lesion. There was also a significant enlargement of the prostate gland with glandular irregularity measuring 8.5 x 6.5 cm. The patient was transferred out, and reportedly had biopsies performed at [facility]. The patient states that it was positive for metastatic prostate cancer. Patient has been reportedly started on Casodex for his prostate CA. His oncologist is Dr. Echeverria scan was done on 04/25/2023 and the patient was found to have diffuse bony metastatic disease throughout every visualized bone and some of the lesions on exposed to the rib lesions. The patient also has disease in his right femur, left femur had, right sacrum, right humerus, left humerus, skeletal, C2 spinous processes, T1 vertebral body, sternum, the patient also has retroperitoneal lymph node involvement. In addition, the patient was found to have bilateral pleural effusion left more than right. The patient came into the emergency department today because of worsening shortness of breath. Chest x-ray showed cardiomegaly, increased 4 vessel markings in addition to a moderate-sized left-sided pleural effusion. Based on that, I performed a bedside thoracentesis on this patient in emergency department and a total of 850 mL of pleural fluid was aspirated without any complications. The patient is resting comfortably in bed. He has skeletal bony pain. No pleurisy. No hemoptysis. No cough or sputum production. No chest tightness. No wheezing. Is currently on oxygen 2 L/m nasal cannula. Patient has a hemoglobin of 7.5 with a white cell count of 4.8. Normal coagulation profile. Urine is a 50 with a creatinine of 0.8. Normal LFTs. Alkaline phosphatase is elevated related to bony metastases. The vital screening was negative. Troponins are negative. ProBNP level is 2240. His echocardiogram from January 2023 shows a preserved LV function. LV function is in order of 45-50%. No evidence of any pericardial effusion. Mild LVH. on today's evaluation of 05/03/2023, the patient is being seen for a follow-up. The patient is doing well. No specific complaints. Underwent thoracentesis on the lung yesterday and no complications. The patient had improvement and he is less short of breath compared to yesterday. The fluid analysis pending including the fluid cytology.Labs from today shows a hemoglobin of 7.7, white cell count of 5, platelet count is up to 25, BUN is a 50 with a creatinine 0.7 and a sodium level is at 138. The viral screen came back negative. The patient's proBNP level was 2350. CRP is at 12.4. The patient was alsoSeen by cardiology. The patient was resumed on his home medications. Awaiting oncology evaluation. Is currently on 4 L of oxygen by nasal cannula with a pulse ox of 97%. Objective - Vital Signs Vital signs: Vital Signs Temp 98.1 F 05/03/23 08:00 Pulse 89 05/03/23 08:00 Resp 18 05/03/23 08:00 BP 109/54 05/03/23 08:00 Pulse Ox 99 05/03/23 08:00 FiO2 Intake & Output 05/02/23 05/03/23 05/03/23 18:59 06:59 18:59 Intake Total 0 118 Output Total 2200 1100 1050 Balance -2200 -1100 -932 Weight 90.718 kg 96 kg Intake: Oral 0 118 Output: Urine 2200 1100 1050 Uretheral (Benjamin) 1700 700 700 Other: Voiding Method Indwelling Catheter Indwelling Catheter # Bowel Movements 0 - Exam GENERAL EXAM: Alert, calm and cooperative 72-year-old male, comfortable in no acute distress, the patient is currently on 4 L of oxygen by nasal cannula HEAD: Normocephalic and atraumatic EYES: Normal reaction of pupils, equal size. NOSE: Clear with pink turbinates. THROAT: No erythema or exudates. NECK: No masses, no JVD. CHEST: No chest wall deformity. LUNGS: Breath sounds are diminished in the left lung bases along with dullness to percussion and bronchial breath sounds. There is no wheeze, rhonchi or dulln ess. No conversational dyspnea. CVS: S1 and S2 normal with no audible murmur, regular rhythm. No extra heart sounds ABDOMEN: Obese abdomen, no hepatosplenomegaly, active bowel sounds, no guarding or rigidity. SPINE: No scoliosis or deformity SKIN: No rashes CENTRAL NERVOUS SYSTEM: Left lower extremity weakness. No other focal deficits. EXTREMITIES: There is no peripheral edema. No clubbing, or cyanosis. Peripheral pulses are intact. - Labs CBC & Chem 7: 05/03/23 07:20 05/03/23 07:20 Labs: Abnormal Lab Results - Last 24 Hours (Table) 05/02/23 05/02/23 05/03/23 Range/Units 13:31 13:31 07:20 RBC 2.57 L 2.68 L (4.30-5.90) m/uL Hgb 7.5 L 7.7 L (13.0-17.5) gm/dL Hct 24.1 L 25.5 L (39.0-53.0) % MCHC 30.0 L (31.0-37.0) g/dL RDW 20.3 H 20.1 H (11.5-15.5) % Lymphocytes # 0.2 L (1.0-4.8) k/uL Creatinine 0.55 L (0.66-1.25) mg/dL Glucose 142 H (74-99) mg/dL Calcium 7.3 L (8.4-10.2) mg/dL Alkaline Phosphatase 462 H (38-126) U/L C-Reactive Protein (<1.0) mg/dL Total Protein 4.7 L (6.3-8.2) g/dL Albumin 2.5 L (3.5-5.0) g/dL 05/03/23 Range/Units 07:20 RBC (4.30-5.90) m/uL Hgb (13.0-17.5) gm/dL Hct (39.0-53.0) % MCHC (31.0-37.0) g/dL RDW (11.5-15.5) % Lymphocytes # (1.0-4.8) k/uL Creatinine (0.66-1.25) mg/dL Glucose 117 H (74-99) mg/dL Calcium 6.9 L (8.4-10.2) mg/dL Alkaline Phosphatase (38-126) U/L C-Reactive Protein 12.4 H (<1.0) mg/dL Total Protein (6.3-8.2) g/dL Albumin (3.5-5.0) g/dL Assessment and Plan Plan: Moderate-sized left-sided pleural effusion, rule out malignant effusion.. Acute hypoxic respiratory failure currently on 4 L of oxygen by nasal cannula Shortness of breath like is secondary to above Metastatic prostate cancer with extensive skeletal disease involvement with metastases. Please refer to the results of the most recent PET/CT Pathologic fracture involving the right greater trochanter fracture/subacute prostate cancer with osseous metastasis. Initiated on Casodex Chronic back pain History of squamous cell lung cancer with previous chemo/radiation, intolerant immunotherapy History of recurrent right-sided pleural effusion, most recent thoracentesis done on 03/25/2022. Negative for cytologically malignant cells at that time. Chest x-ray this admission shows a right lower lobe effusion and possible superimposed infiltrate. There were destructive left sided rib lesions. Chronic obstructive pulmonary disease, stable Normocytic normochromic anemia, no obvious evidence of acute blood loss Coronary artery disease with previous stent placement Hyperlipidemia Benign essential hypertension Peripheral vascular occlusive disease. History DVT, anticoagulated on Eliquis Ex smoker Constipation Plan Diagnostic and therapeutic thoracentesis of the left lung was done and a total of 860 mL of fluid aspirated without any complication. The fluid was sent for cultures, cytology and chemistry. the fluid analysis and cytology is still pending for now Obtain a follow-up chest x-rayshows occasions and there is no evidence of any pneumothorax May continue anticoagulation Oncology follow-up cardiology follow-up Overall pulmonary status is stable and will continue to follow.
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
[2023-05-03] MEDS: ALPRAZolam 0.25 MG TAB PO PRN (17:37)
[2023-05-03] MEDS ORDERED: polyethylene glycoL 3350 17 GM POWD.PACK PO STA (18:54)
[2023-05-04] MEDS: APIXABAN 5 MG TAB PO SCH ×3 (00:21→19:40)
[2023-05-04] MEDS: DOXYCYCLINE 100 MG CAP PO SCH ×3 (00:21→19:41)
[2023-05-04] MEDS: FAMOTIDINE 20 MG TAB PO SCH ×3 (00:22→19:40)
[2023-05-04] MEDS: FUROSEMIDE 10 MG/ML 2 ML VIAL IV SCH ×3 (00:22→19:40)
[2023-05-04] MEDS: guaiFENesin 600 MG TABLET.ER PO SCH ×3 (00:22→19:40)
[2023-05-04] MEDS: PANTOPRAZOLE 40 MG TABLET PO SCH ×2 (05:20→17:36)
[2023-05-04] MEDS: oxyCODONE-APAP 10-325MG 1 EACH TAB PO PRN ×2 (05:20→17:36)
[2023-05-04] MEDS: carvediloL 6.25 MG TAB PO SCH ×2 (05:20→17:36)
[2023-05-04 09:16] LABS: Anisocytosis Moderate; HCT 24.2 % (39.0-53.0); HGB 7.5 gm/dL (13.0-17.5); Hypochromasia Marked; MCH 29.5 pg (25.0-35.0); MCV 95.2 fL (80.0-100.0); Macrocytosis Slight; Mean Platelet Volume 7.3; Platelet Count 228 k/uL (150-450); RBC 2.55 m/uL (4.30-5.90); RDW 20.2 % (11.5-15.5); WBC 4.9 k/uL (3.8-10.6)
[2023-05-04] MEDS: TAMSULOSIN 0.4 MG CAP.ER.24H PO SCH (09:41)
[2023-05-04] MEDS: BICALUTAMIDE 50 MG TAB PO SCH (09:41)
[2023-05-04] MEDS: ATORVASTATIN 20 MG TAB PO SCH (09:41)
[2023-05-04] MEDS: METHADONE 10 MG TAB PO PRN (09:41)
[2023-05-04 09:42] LABS: African American GFR (CKD) >90 (>60 ml/min/1.73 sqM); Anion Gap 7 mmol/L; Blood Urea Nitrogen 17 mg/dL (9-20); Calcium 6.9 mg/dL (8.4-10.2); Carbon Dioxide 27 mmol/L (22-30); Chloride 103 mmol/L (98-107); Glucose 102 mg/dL (74-99); Non-African American GFR(CKD) >90 (>60 ml/min/1.73 sqM); Sodium 137 mmol/L (137-145)
[2023-05-04] MEDS: DOCUSATE 100 MG CAP PO SCH ×2 (09:42→19:40)
[2023-05-04] MEDS: predniSONE 20 MG TAB PO SCH (09:43)
[2023-05-04] MEDS: HYDROmorphone 2 MG TAB PO PRN (12:28)
[2023-05-04] MEDS: ALPRAZolam 0.25 MG TAB PO PRN ×2 (12:28→19:40)
--- NOTE | 2023-05-04 12:34 | P.PN ---
Subjective Progress Note Date: 05/04/23 This is a 72-year-old male with past medical history of coronary artery disease, hypertension, COPD, atrial fibrillation on eliquis, squamous cell lung cancer status post chemo and radiation diagnosed in March 2020, history of right- sided pleural effusion and previous thoracentesis, peripheral vascular disease, remote history of tobacco use, patient quit smoking 3 years ago. Patient has not followed with a computer applications engineer lately. He does have history of 2 stents done in [place]. He also has history of peripheral arterial disease. We have been asked to evaluate the patient for acute on chronic heart failure. Patient presented to the hospital due to difficulty breathing. He states the shortness of breath started on Saturday night and feeling better now. He denies any chest pain. He has had cough with phlegm production. He also has wheezes. Patient complains of lower extremity edema and drainage. No PND. He denies any blood in his stool or urine. No stroke or seizures symptoms. Patient has undergone thoracentesis for left pleural effusion performed by Dr. Brumfield with removal of 850 ML's of turbid colored fluid. EKG sinus rhythm Chest x-ray: 05/02 pattern is typical for heart failure favored over pneumonia. Cardiomegaly can be on the basis of cardiac disease or pericardial effusion. #2 post thoracentesis no acute findings. WBC 4.8, hemoglobin 7.5, platelet count 217. INR 1. LITES normal. BUN 15 and creatinine 0.55. But sugar 142. Calcium 7.3. Alkaline phosphatase 462 otherwise liver function tests are within normal limits. Troponin negative 1. ProBNP 2240 Home cardiac medications: Eliquis 5 mg twice daily, aspirin 81 mg daily, Lipitor 20 mg daily, Coreg 6.25 mg twice daily. Echocardiogram performed 02/08/2023 revealed EF 45-50%, mild LVH, severe left at rial of dictation, mild MR. No pericardial effusion. Cardiac catheterization [place] [address] Avila revealed codominant right and left coronary system. Intermediate disease involving the mid left circumflex with eccentric lesion appeared to be in the range of 50%. 05/04/2023 Was seen and examined resting comfortably in bed. Overall feeling better. His breathing has improved. He denies any orthopnea or PND. He has no edema. He is anxious to go home. Objective - Vital Signs Vital signs: Vital Signs Temp 98.3 F 05/04/23 08:20 Pulse 90 05/04/23 11:00 Resp 16 05/04/23 11:00 BP 103/63 05/04/23 11:00 Pulse Ox 100 05/04/23 11:00 FiO2 Intake & Output 05/03/23 05/04/23 05/04/23 18:59 06:59 18:59 Intake Total 118 1198 Output Total 1750 700 Balance -1632 1198 -700 Weight 96 kg 97 kg Intake: Oral 118 1198 Output: Urine 1750 700 Uretheral (Benjamin) 1400 Other: Voiding Method Indwelling Catheter Indwelling Catheter Indwelling Catheter - Exam HEENT: Head is atraumatic, normocephalic. Pupils equal, round. Sclerae is anicteric. NECK: Supple. No JVD. LUNGS: Diminished in the left base. No intercostal retractions. HEART: Regular rate and rhythm. No murmur. ABDOMEN: Soft No tenderness. EXTREMITIES: No pedal edema. No calf tenderness. NEUROLOGICAL: Patient is awake, alert and oriented x3. - Labs CBC & Chem 7: 05/04/23 08:39 05/04/23 08:39 Labs: Abnormal Lab Results - Last 24 Hours (Table) 05/04/23 05/04/23 Range/Units 08:39 08:39 RBC 2.55 L (4.30-5.90) m/uL Hgb 7.5 L (13.0-17.5) gm/dL Hct 24.2 L (39.0-53.0) % RDW 20.2 H (11.5-15.5) % Glucose 102 H (74-99) mg/dL Calcium 6.9 L (8.4-10.2) mg/dL Microbiology - Last 24 Hours (Table) 05/02/23 13:31 Blood Culture - Preliminary Blood Assessment and Plan Assessment: Left-sided pleural effusion status post thoracentesis 05/02 with removal of 850 ML, possibly due to underlying malignancy Dyspnea secondary to pleural effusion, anemia Mildly impaired EF Coronary artery disease with previous stenting done details are not known PAD Atrial fibrillation paroxysmal Squamous cell lung cancer Plan: From Cardiology's perspective medications were reviewed and we will continue the same. At this time we will folow the patient on an as-needed basis please do not hesitate to contact us with questions. Nurse practitioner note has been reviewed, I agree with documented findings and plan of care. Patient was seen and examined.
[2023-05-04] MEDS ORDERED: bisacodyL 10 MG SUPP RECTAL STA (12:48)
[2023-05-04] MEDS: SENNOSIDES 8.6 MG TAB PO SCH ×2 (13:14→19:40)
--- NOTE | 2023-05-04 14:58 | P.PN ---
Subjective Progress Note Date: 05/04/23 Patient is a 72-year-old white male with past medical history significant for known squamous cell lung carcinoma diagnosed March 2020, s/p chemo and radiation, poor tolerance to immunotherapy, right-sided pleural effusion with previous thoracentesis, chronic obstructive pulmonary disease, congestive heart failure, hypertension, chronic back pain, peripheral vascular occlusive disease, coronary artery disease with previous stent, and is an ex smoker. Few months ago , the patient was admitted for left thigh pain. CT of the pelvis and left femur showed focal sclerosis in the region of the greater trochanter of the hip with cortical discontinuity suspicious for metastatic lesion, there was also vague sclerosis involving the left iliac wing which could reflect a site of additional sclerotic metastatic lesion. There was also a significant enlargement of the prostate gland with glandular irregularity measuring 8.5 x 6.5 cm. The patient was transferred out, and reportedly had biopsies performed at [facility]. The patient states that it was positive for metastatic prostate cancer. Patient has been reportedly started on Casodex for his prostate CA. His oncologist is Dr. Echeverria scan was done on 04/25/2023 and the patient was found to have diffuse bony metastatic disease throughout every visualized bone and some of the lesions on exposed to the rib lesions. The patient also has disease in his right femur, left femur had, right sacrum, right humerus, left humerus, skeletal, C2 spinous processes, T1 vertebral body, sternum, the patient also has retroperitoneal lymph node involvement. In addition, the patient was found to have bilateral pleural effusion left more than right. The patient came into the emergency department today because of worsening shortness of breath. Chest x-ray showed cardiomegaly, increased 4 vessel markings in addition to a moderate-sized left-sided pleural effusion. Based on that, I performed a bedside thoracentesis on this patient in emergency department and a total of 850 mL of pleural fluid was aspirated without any complications. The patient is resting comfortably in bed. He has skeletal bony pain. No pleurisy. No hemoptysis. No cough or sputum production. No chest tightness. No wheezing. Is currently on oxygen 2 L/m nasal cannula. Patient has a hemoglobin of 7.5 with a white cell count of 4.8. Normal coagulation profile. Urine is a 50 with a creatinine of 0.8. Normal LFTs. Alkaline phosphatase is elevated related to bony metastases. The vital screening was negative. Troponins are negative. ProBNP level is 2240. His echocardiogram from January 2023 shows a preserved LV function. LV function is in order of 45-50%. No evidence of any pericardial effusion. Mild LVH. on today's evaluation of 05/03/2023, the patient is being seen for a follow-up. The patient is doing well. No specific complaints. Underwent thoracentesis on the lung yesterday and no complications. The patient had improvement and he is less short of breath compared to yesterday. The fluid analysis pending including the fluid cytology.Labs from today shows a hemoglobin of 7.7, white cell count of 5, platelet count is up to 25, BUN is a 50 with a creatinine 0.7 and a sodium level is at 138. The viral screen came back negative. The patient's proBNP level was 2350. CRP is at 12.4. The patient was alsoSeen by cardiology. The patient was resumed on his home medications. Awaiting oncology evaluation. Is currently on 4 L of oxygen by nasal cannula with a pulse ox of 97%. On today's evaluation of 05/04/2023, no new complaints and the patient is clinically and hemodynamically stable. The patient was started on Casodex. The pleural fluid cytology still pending for now. No significant respiratory distress. The hemoglobin is at 7.5, the white cell count of 4.9, BUN is at 70 with a creatinine of 0.6 and a sodium level is at 137. Remains on anticoagulation with Eliquis. Remains on oxygen at 3 L with a pulse ox of 99%. Objective - Vital Signs Vital signs: Vital Signs Temp 98.3 F 05/04/23 08:20 Pulse 90 05/04/23 11:00 Resp 16 05/04/23 11:00 BP 103/63 05/04/23 11:00 Pulse Ox 100 05/04/23 11:00 FiO2 Intake & Output 05/03/23 05/04/23 05/04/23 18:59 06:59 18:59 Intake Total 118 1198 Output Total 1750 700 Balance -1632 1198 -700 Weight 96 kg 97 kg Intake: Oral 118 1198 Output: Urine 1750 700 Uretheral (Benjamin) 1400 Other: Voiding Method Indwelling Catheter Indwelling Catheter Indwelling Catheter - Exam GENERAL EXAM: Alert, calm and cooperative 72-year-old male, comfortable in no acute distress, the patient is currently on 4 L of oxygen by nasal cannula HEAD: Normocephalic and atraumatic EYES: Normal reaction of pupils, equal size. NOSE: Clear with pink turbinates. THROAT: No erythema or exudates. NECK: No masses, no JVD. CHEST: No chest wall deformity. LUNGS: Breath sounds are diminished in the left lung bases along with dullness to percussion and bronchial breath sounds. There is no wheeze, rhonchi or dullness. No conversational dyspnea. CVS: S1 and S2 normal with no audible murmur, regular rhythm. No extra heart sounds ABDOMEN: Obese abdomen, no hepatosplenomegaly, active bowel sounds, no guarding or rigidity. SPINE: No scoliosis or deformity SKIN: No rashes CENTRAL NERVOUS SYSTEM: Left lower extremity weakness. No other focal deficits. EXTREMITIES: There is no peripheral edema. No clubbing, or cyanosis. Peripheral pulses are intact. - Labs CBC & Chem 7: 05/04/23 08:39 05/04/23 08:39 Labs: Abnormal Lab Results - Last 24 Hours (Table) 05/04/23 05/04/23 Range/Units 08:39 08:39 RBC 2.55 L (4.30-5.90) m/uL Hgb 7.5 L (13.0-17.5) gm/dL Hct 24.2 L (39.0-53.0) % RDW 20.2 H (11.5-15.5) % Glucose 102 H (74-99) mg/dL Calcium 6.9 L (8.4-10.2) mg/dL Microbiology - Last 24 Hours (Table) 05/02/23 13:31 Blood Culture - Preliminary Blood Assessment and Plan Plan: Moderate-sized left-sided pleural effusion, rule out malignant effusion.. Thoracentesis was done and the fluid cytology is still pending for now. Overall rest or status is stable. Acute hypoxic respiratory failure currently on 3 L of oxygen by nasal cannula Shortness of breath like is secondary to above Metastatic prostate cancer with extensive skeletal disease involvement with metastases. Please refer to the results of the most recent PET/CT Pathologic fracture involving the right greater trochanter fracture/subacute prostate cancer with osseous metastasis. Initiated on Casodex Chronic back pain History of squamous cell lung cancer with previous chemo/radiation, intolerant immunotherapy History of recurrent right-sided pleural effusion, most recent thoracentesis done on 03/25/2022. Negative for cytologically malignant cells at that time. Chest x-ray this admission shows a right lower lobe effusion and possible superimposed infiltrate. There were destructive left sided rib lesions. Chronic obstructive pulmonary disease, stable Normocytic normochromic anemia, no obvious evidence of acute blood loss Coronary artery disease with previous stent placement Hyperlipidemia Benign essential hypertension Peripheral vascular occlusive disease. History DVT, anticoagulated on Eliquis Ex smoker Constipation Plan Diagnostic and therapeutic thoracentesis of the left lung was done and a total of 860 mL of fluid aspirated without any complication. The fluid was sent for cultures, cytology and chemistry. the fluid analysis and cytology is still pending for now She was started on Casodex May continue anticoagulation Oncology follow-up cardiology follow-up Overall pulmonary status is stable and will continue to follow. No other active issues for the time being.
[2023-05-04] MEDS: ALBUTEROL NEBULIZED 2.5 MG/3 ML INHALATION PRN (18:13)
[2023-05-04 19:38] LABS: Glucose,Whole Blood 255 mg/dL (70-110)
[2023-05-05] MEDS: oxyCODONE-APAP 10-325MG 1 EACH TAB PO PRN ×2 (04:34→11:38)
--- NOTE | 2023-05-05 05:16 | P.PN ---
Subjective * 72-year-old gentleman with past medical history significant for squamous cell carcinoma of the lung diagnosed in March 2020, received treatment with chemo and radiation, history of prostate cancer with metastatic disease to the bone, history of pleural effusion on the right lung with need for thoracentesis, COPD, congestive heart failure, hypertension, peripheral vascular disease, coronary artery disease presents to the emergency department with complains of worsening shortness of breath. * Patient was recently admitted to a hospital in March when he was transferred to [facility] and had bone biopsy done which showed metastatic prostate cancer, patient has followed up with urology and was started on Casodex with us. Patient did have an outpatient PET scan done on 04/25/2023 and was found to have diffuse metastatic disease throughout every visualized bone. Multiple rib lesions were seen as well * Workup in ER included CBC which were WBC 4.8 hemoglobin 7.5 platelet 217, INR of 1, serum chemistry sodium 137 potassium 4.2 chloride 107B on 15 creatinine 0.55 lactate of 0.7 alkaline phosphatase 462 N-terminal proBNP 2240 * Patient tested negative for influenza RSV and Covid * Patient presents to the ED with shortness of breath and a chest x-ray was obtained which showed moderate-sized pleural effusion on the left lung. Pulmonary medicine was consulted and patient had bedside thoracentesis performed with 850 mL approved for aspirated. * Patient had also been complaining of lower extremity weakness and a CT * Patient to be admitted to medical floor with consultation from pulmonary medicine, cardiology and oncology 05/04/2023 Patient with moderate right pleural effusion status post thoracocentesis with its 60 mL removed His debridement is better and his oxygen requirement down to 3 L/m Patient does not know if he is on home oxygen [place] Cytology still pending Tremendous on oral doxycycline, IV Lasix 20 mg twice daily and prednisone 40 mg. He's on eliquis for history of DVT Hemoglobin 7.5 Objective - Vital Signs Vital signs: Vital Signs Temp 98.3 F 05/04/23 08:20 Pulse 90 05/04/23 11:00 Resp 16 05/04/23 11:00 BP 103/63 05/04/23 11:00 Pulse Ox 100 05/04/23 11:00 FiO2 Intake & Output 05/03/23 05/04/23 05/04/23 18:59 06:59 18:59 Intake Total 118 1198 Output Total 1750 700 Balance -1632 1198 -700 Weight 96 kg 97 kg Intake: Oral 118 1198 Output: Urine 1750 700 Uretheral (Benjamin) 1400 Other: Voiding Method Indwelling Catheter Indwelling Catheter Indwelling Catheter - Exam GENERAL: The patient is alert and oriented x3, not in any acute distress. Well developed, well nourished. HEENT: Pupils are round and equally reacting to light. EOMI. No scleral icterus. No conjunctival pallor. Normocephalic, atraumatic. No pharyngeal erythema. No thyromegaly. CARDIOVASCULAR: S1 and S2 present. No murmurs, rubs, or gallops. PULMONARY: Chest is clear to auscultation, no wheezing , no crackles. ABDOMEN: Soft, nontender, nondistended, normoactive bowel sounds. No palpable organomegaly. MUSCULOSKELETAL: No joint swelling or deformity. EXTREMITIES: No cyanosis, clubbing, or pedal edema. NEUROLOGICAL: Gross neurological examination did not reveal any focal deficits. SKIN: No rashes. no petechiae. - Labs CBC & Chem 7: 05/04/23 08:39 05/04/23 08:39 Labs: Abnormal Lab Results - Last 24 Hours (Table) 05/04/23 05/04/23 Range/Units 08:39 08:39 RBC 2.55 L (4.30-5.90) m/uL Hgb 7.5 L (13.0-17.5) gm/dL Hct 24.2 L (39.0-53.0) % RDW 20.2 H (11.5-15.5) % Glucose 102 H (74-99) mg/dL Calcium 6.9 L (8.4-10.2) mg/dL Microbiology - Last 24 Hours (Table) 05/02/23 13:31 Blood Culture - Preliminary Blood Assessment and Plan Assessment: Acute hypoxic respiratory failure secondary to moderate-sized left-sided pleural effusion * History of metastatic prostate cancer with extensive bone metastases * History of squamous cell lung cancer with previous treatment with chemo and radiation intolerant to immunotherapy * History of recurrent pleural effusion and right lung needing thoracentesis * COPD with exacerbation * Coronary artery disease with history of PCI * Essential hypertension * History of DVT on anticoagulation with Eliquis Plan: Continue with IV Lasix Continue with oral antibiotic doxycycline and prednisone 40 mg Cardiology and pulmonary team consult Follow-up cytology of pleural fluid Oncology team on the case as well Labs and medication were reviewed.. Continue same treatment. Continue with symptomatic treatment. Resume home medication. Monitor labs and vitals. DVT and GI prophylaxis. Further recommendations as per clinical course of the patient DVT prophylaxis: eiquis GI Prophylaxis: Ppi PT/OT: Pending Prognosis is guarded
[2023-05-05] MEDS: carvediloL 6.25 MG TAB PO SCH ×2 (06:11→20:22)
[2023-05-05] MEDS: PANTOPRAZOLE 40 MG TABLET PO SCH ×2 (06:11→20:05)
[2023-05-05 06:12] LABS: Glucose,Whole Blood 125 mg/dL (70-110)
[2023-05-05] MEDS: ALBUTEROL NEBULIZED 2.5 MG/3 ML INHALATION PRN ×2 (07:50→14:51)
[2023-05-05] MEDS: SENNOSIDES 8.6 MG TAB PO SCH ×2 (08:32→21:17)
[2023-05-05] MEDS: guaiFENesin 600 MG TABLET.ER PO SCH ×2 (08:32→21:15)
[2023-05-05] MEDS: DOCUSATE 100 MG CAP PO SCH ×2 (08:32→21:17)
[2023-05-05] MEDS: FUROSEMIDE 10 MG/ML 2 ML VIAL IV SCH ×2 (08:32→21:17)
[2023-05-05] MEDS: FAMOTIDINE 20 MG TAB PO SCH ×2 (08:32→21:15)
[2023-05-05] MEDS: TAMSULOSIN 0.4 MG CAP.ER.24H PO SCH (08:32)
[2023-05-05] MEDS: APIXABAN 5 MG TAB PO SCH ×2 (08:32→21:17)
[2023-05-05] MEDS: predniSONE 20 MG TAB PO SCH (08:32)
[2023-05-05] MEDS: ATORVASTATIN 20 MG TAB PO SCH (08:32)
[2023-05-05] MEDS: BICALUTAMIDE 50 MG TAB PO SCH (08:33)
[2023-05-05] MEDS: DOXYCYCLINE 100 MG CAP PO SCH ×2 (08:33→21:14)
[2023-05-05 11:57] LABS: Glucose,Whole Blood 140 mg/dL (70-110)
--- NOTE | 2023-05-05 12:16 | P.PN ---
Subjective Progress Note Date: 05/05/23 Patient is a 72-year-old white male with past medical history significant for known squamous cell lung carcinoma diagnosed March 2020, s/p chemo and radiation, poor tolerance to immunotherapy, right-sided pleural effusion with previous thoracentesis, chronic obstructive pulmonary disease, congestive heart failure, hypertension, chronic back pain, peripheral vascular occlusive disease, coronary artery disease with previous stent, and is an ex smoker. Few months ago , the patient was admitted for left thigh pain. CT of the pelvis and left femur showed focal sclerosis in the region of the greater trochanter of the hip with cortical discontinuity suspicious for metastatic lesion, there was also vague sclerosis involving the left iliac wing which could reflect a site of additional sclerotic metastatic lesion. There was also a significant enlargement of the prostate gland with glandular irregularity measuring 8.5 x 6.5 cm. The patient was transferred out, and reportedly had biopsies performed at [facility]. The patient states that it was positive for metastatic prostate cancer. Patient has been reportedly started on Casodex for his prostate CA. His oncologist is Dr. Echeverria scan was done on 04/25/2023 and the patient was found to have diffuse bony metastatic disease throughout every visualized bone and some of the lesions on exposed to the rib lesions. The patient also has disease in his right femur, left femur had, right sacrum, right humerus, left humerus, skeletal, C2 spinous processes, T1 vertebral body, sternum, the patient also has retroperitoneal lymph node involvement. In addition, the patient was found to have bilateral pleural effusion left more than right. The patient came into the emergency department today because of worsening shortness of breath. Chest x-ray showed cardiomegaly, increased 4 vessel markings in addition to a moderate-sized left-sided pleural effusion. Based on that, I performed a bedside thoracentesis on this patient in emergency department and a total of 850 mL of pleural fluid was aspirated without any complications. The patient is resting comfortably in bed. He has skeletal bony pain. No pleurisy. No hemoptysis. No cough or sputum production. No chest tightness. No wheezing. Is currently on oxygen 2 L/m nasal cannula. Patient has a hemoglobin of 7.5 with a white cell count of 4.8. Normal coagulation profile. Urine is a 50 with a creatinine of 0.8. Normal LFTs. Alkaline phosphatase is elevated related to bony metastases. The vital screening was negative. Troponins are negative. ProBNP level is 2240. His echocardiogram from January 2023 shows a preserved LV function. LV function is in order of 45-50%. No evidence of any pericardial effusion. Mild LVH. on today's evaluation of 05/03/2023, the patient is being seen for a follow-up. The patient is doing well. No specific complaints. Underwent thoracentesis on the lung yesterday and no complications. The patient had improvement and he is less short of breath compared to yesterday. The fluid analysis pending including the fluid cytology.Labs from today shows a hemoglobin of 7.7, white cell count of 5, platelet count is up to 25, BUN is a 50 with a creatinine 0.7 and a sodium level is at 138. The viral screen came back negative. The patient's proBNP level was 2350. CRP is at 12.4. The patient was alsoSeen by cardiology. The patient was resumed on his home medications. Awaiting oncology evaluation. Is currently on 4 L of oxygen by nasal cannula with a pulse ox of 97%. On today's evaluation of 05/04/2023, no new complaints and the patient is clinically and hemodynamically stable. The patient was started on Casodex. The pleural fluid cytology still pending for now. No significant respiratory distress. The hemoglobin is at 7.5, the white cell count of 4.9, BUN is at 70 with a creatinine of 0.6 and a sodium level is at 137. Remains on anticoagulation with Eliquis. Remains on oxygen at 3 L with a pulse ox of 99%. On 05/05/2023, no new complaints, the patient is clinically and hemodynamically stable. No new labs from today. Remains on 3 L of oxygen by nasal cannula with a pulse ox of 98%. Pleural fluid cytology still pending. Objective - Vital Signs Vital signs: Vital Signs Temp 98.3 F 05/05/23 08:38 Pulse 97 05/05/23 08:38 Resp 16 05/05/23 08:38 BP 120/63 05/05/23 08:38 Pulse Ox 98 05/05/23 08:38 FiO2 Intake & Output 05/04/23 05/05/23 05/05/23 18:59 06:59 18:59 Intake Total 840 540 Output Total 1800 2325 Balance -960 -1785 Weight 95.5 kg Intake: Oral 840 540 Output: Urine 1800 2325 Other: Voiding Method Indwelling Catheter Indwelling Catheter Indwelling Catheter # Bowel Movements 1 - Exam GENERAL EXAM: Alert, calm and cooperative 72-year-old male, comfortable in no acute distress, the patient is currently on 3 L of oxygen by nasal cannula HEAD: Normocephalic and atraumatic EYES: Normal reaction of pupils, equal size. NOSE: Clear with pink turbinates. THROAT: No erythema or exudates. NECK: No masses, no JVD. CHEST: No chest wall deformity. LUNGS: Breath sounds are diminished in the left lung bases along with dullness to percussion and bronchial breath sounds. There is no wheeze, rhonchi or dullness. No conversational dyspnea. CVS: S1 and S2 normal with no audible murmur, regular rhythm. No extra heart sounds ABDOMEN: Obese abdomen, no hepatosplenomegaly, active bowel sounds, no guarding or rigidity. SPINE: No scoliosis or deformity SKIN: No rashes CENTRAL NERVOUS SYSTEM: Left lower extremity weakness. No other focal deficits. EXTREMITIES: There is no peripheral edema. No clubbing, or cyanosis. Peripheral pulses are intact. - Labs CBC & Chem 7: 05/04/23 08:39 05/04/23 08:39 Labs: Abnormal Lab Results - Last 24 Hours (Table) 05/04/23 05/05/23 Range/Units 19:33 06:10 POC Glucose (mg/dL) 255 H 125 H (70-110) mg/dL Microbiology - Last 24 Hours (Table) 05/02/23 13:31 Blood Culture - Preliminary Blood Assessment and Plan Plan: Moderate-sized left-sided pleural effusion, rule out malignant effusion.. Thoracentesis was done and the fluid cytology is still pending for now. Overall rest or status is stable. Acute hypoxic respiratory failure currently on 3 L of oxygen by nasal cannula Shortness of breath like is secondary to above Metastatic prostate cancer with extensive skeletal disease involvement with metastases. Please refer to the results of the most recent PET/CT Pathologic fracture involving the right greater trochanter fracture/subacute prostate cancer with osseous metastasis. Initiated on Casodex Chronic back pain History of squamous cell lung cancer with previous chemo/radiation, intolerant immunotherapy History of recurrent right-sided pleural effusion, most recent thoracentesis done on 03/25/2022. Negative for cytologically malignant cells at that time. Chest x-ray this admission shows a right lower lobe effusion and possible superimposed infiltrate. There were destructive left sided rib lesions. Chronic obstructive pulmonary disease, stable Normocytic normochromic anemia, no obvious evidence of acute blood loss Coronary artery disease with previous stent placement Hyperlipidemia Benign essential hypertension Peripheral vascular occlusive disease. History DVT, anticoagulated on Eliquis Ex smoker Constipation Plan Overall condition stable and the patient can potentially discharged home Diagnostic and therapeutic thoracentesis of the left lung was done and a total of 860 mL of fluid aspirated without any complication. The fluid was sent for cultures, cytology and chemistry. I believe the chemistry was not sent for evaluation. the fluid analysis and cytology is still pending for now He is currently on Casodex Continue anticoagulation Oncology follow-up cardiology follow-up Overall pulmonary status is stable and will continue to follow. No other active issues for the time being. Possible home today
[2023-05-05] MEDS: ALPRAZolam 0.25 MG TAB PO PRN (13:52)
[2023-05-05] MEDS: METHADONE 10 MG TAB PO PRN (16:15)
[2023-05-05 16:37] LABS: Glucose,Whole Blood 182 mg/dL (70-110)
[2023-05-05] MEDS: HYDROmorphone 2 MG TAB PO PRN (21:16)
--- NOTE | 2023-05-05 23:15 | P.PN ---
Subjective * 72-year-old gentleman with past medical history significant for squamous cell carcinoma of the lung diagnosed in March 2020, received treatment with chemo and radiation, history of prostate cancer with metastatic disease to the bone, history of pleural effusion on the right lung with need for thoracentesis, COPD, congestive heart failure, hypertension, peripheral vascular disease, coronary artery disease presents to the emergency department with complains of worsening shortness of breath. * Patient was recently admitted to a hospital in March when he was transferred to [facility] and had bone biopsy done which showed metastatic prostate cancer, patient has followed up with urology and was started on Casodex with us. Patient did have an outpatient PET scan done on 04/25/2023 and was found to have diffuse metastatic disease throughout every visualized bone. Multiple rib lesions were seen as well * Workup in ER included CBC which were WBC 4.8 hemoglobin 7.5 platelet 217, INR of 1, serum chemistry sodium 137 potassium 4.2 chloride 107B on 15 creatinine 0.55 lactate of 0.7 alkaline phosphatase 462 N-terminal proBNP 2240 * Patient tested negative for influenza RSV and Covid * Patient presents to the ED with shortness of breath and a chest x-ray was obtained which showed moderate-sized pleural effusion on the left lung. Pulmonary medicine was consulted and patient had bedside thoracentesis performed with 850 mL approved for aspirated. * Patient had also been complaining of lower extremity weakness and a CT * Patient to be admitted to medical floor with consultation from pulmonary medicine, cardiology and oncology 05/04/2023 Patient with moderate right pleural effusion status post thoracocentesis with its 60 mL removed His debridement is better and his oxygen requirement down to 3 L/m Patient does not know if he is on home oxygen [place] Cytology still pending Tremendous on oral doxycycline, IV Lasix 20 mg twice daily and prednisone 40 mg. He's on eliquis for history of DVT Hemoglobin 7.5 05/05/2023 Patient improving, dyspnea is improving Hands with bowel movement Patient's wants to go home He is hemodynamically stable Oxygen delivered at bedside The pleural fluid cytology is pending Possible discharge in the morning Discussed the plan with the patient and he is agreeable Objective - Vital Signs Vital signs: Vital Signs Temp 98.2 F 05/05/23 16:00 Pulse 92 05/05/23 16:00 Resp 16 05/05/23 16:00 BP 120/58 05/05/23 16:00 Pulse Ox 99 05/05/23 16:00 FiO2 Intake & Output 05/05/23 05/05/23 05/06/23 06:59 18:59 06:59 Intake Total 540 1560 Output Total 2325 950 Balance -1785 610 Weight 95.5 kg Intake: Oral 540 1560 Output: Urine 2325 950 Other: Voiding Method Indwelling Catheter Indwelling Catheter # Bowel Movements 1 2 - Exam GENERAL: The patient is alert and oriented x3, not in any acute distress. Well developed, well nourished. HEENT: Pupils are round and equally reacting to light. EOMI. No scleral icterus. No conjunctival pallor. Normocephalic, atraumatic. No pharyngeal erythema. No thyromegaly. CARDIOVASCULAR: S1 and S2 present. No murmurs, rubs, or gallops. PULMONARY: Chest is clear to auscultation, no wheezing , no crackles. ABDOMEN: Soft, nontender, nondistended, normoactive bowel sounds. No palpable organomegaly. MUSCULOSKELETAL: No joint swelling or deformity. EXTREMITIES: No cyanosis, clubbing, or pedal edema. NEUROLOGICAL: Gross neurological examination did not reveal any focal deficits. SKIN: No rashes. no petechiae. - Labs CBC & Chem 7: 05/04/23 08:39 05/04/23 08:39 Labs: Abnormal Lab Results - Last 24 Hours (Table) 05/05/23 05/05/23 05/05/23 Range/Units 06:10 11:43 16:21 POC Glucose (mg/dL) 125 H 140 H 182 H (70-110) mg/dL Microbiology - Last 24 Hours (Table) 05/02/23 13:31 Blood Culture - Preliminary Blood Assessment and Plan Assessment: Acute hypoxic respiratory failure secondary to moderate-sized left-sided pleural effusion * History of metastatic prostate cancer with extensive bone metastases * History of squamous cell lung cancer with previous treatment with chemo and radiation intolerant to immunotherapy * History of recurrent pleural effusion and right lung needing thoracentesis * COPD with exacerbation * Coronary artery disease with history of PCI * Essential hypertension * History of DVT on anticoagulation with Eliquis Plan: Continue with IV Lasix Continue with oral antibiotic doxycycline and prednisone 40 mg Cardiology and pulmonary team consult Follow-up cytology of pleural fluid Oncology team on the case as well Labs and medication were reviewed.. Continue same treatment. Continue with symptomatic treatment. Resume home medication. Monitor labs and vitals. DVT and GI prophylaxis. Further recommendations as per clinical course of the patient DVT prophylaxis: eiquis GI Prophylaxis: Ppi PT/OT: Pending Prognosis is guarded
[2023-05-06 02:17] LABS: Glucose,Whole Blood 184 mg/dL (70-110)
[2023-05-06] MEDS: ALPRAZolam 0.25 MG TAB PO PRN ×2 (02:53→09:27)
[2023-05-06 06:01] LABS: Glucose,Whole Blood 94 mg/dL (70-110)
[2023-05-06] MEDS: carvediloL 6.25 MG TAB PO SCH (06:57)
[2023-05-06] MEDS: PANTOPRAZOLE 40 MG TABLET PO SCH (06:57)
[2023-05-06] MEDS ORDERED: CALCIUM CARB-VIT D 500 MG-5 MCG TAB PO SCH (09:00)
[2023-05-06] MEDS: ALBUTEROL NEBULIZED 2.5 MG/3 ML INHALATION PRN ×2 (09:06→12:07)
[2023-05-06] MEDS: guaiFENesin 600 MG TABLET.ER PO SCH (09:08)
[2023-05-06] MEDS: DOCUSATE 100 MG CAP PO SCH (09:08)
[2023-05-06] MEDS: FUROSEMIDE 10 MG/ML 2 ML VIAL IV SCH (09:09)
[2023-05-06] MEDS: SENNOSIDES 8.6 MG TAB PO SCH (09:09)
[2023-05-06] MEDS: predniSONE 20 MG TAB PO SCH (09:09)
[2023-05-06] MEDS: ATORVASTATIN 20 MG TAB PO SCH (09:10)
[2023-05-06] MEDS: DOXYCYCLINE 100 MG CAP PO SCH (09:10)
[2023-05-06] MEDS: FAMOTIDINE 20 MG TAB PO SCH (09:10)
[2023-05-06] MEDS: BICALUTAMIDE 50 MG TAB PO SCH (09:14)
[2023-05-06] MEDS: APIXABAN 5 MG TAB PO SCH (09:15)
[2023-05-06] MEDS: TAMSULOSIN 0.4 MG CAP.ER.24H PO SCH (09:16)
[2023-05-06] MEDS ORDERED: ZOLEDRONIC ACID 4 MG in SODIUM CHLORIDE 0.9% 100 ML IV ONE (09:30)
[2023-05-06 09:49] VITALS: BP 101/58; RESP 16; TEMP 98.5
[2023-05-06 12:00] LABS: Glucose,Whole Blood 132 mg/dL (70-110)
--- NOTE | 2023-05-06 12:16 | CDI ---
Documentation Clarification Form Date: 05/06/2023 12:08:35 PM From: Columba Mujica RN, CCDS Admit Date: 05/02/2023 03:51:00 PM Patient Name: Joe Matias Visit Number: [id number] Discharge Date: ATTENTION: The Clinical Documentation Specialists (CDI) and [facility] Coding Staff appreciate your assistance in clarifying documentation. Please respond to the clarification below the line at the bottom and electronically sign. The CDI & [facility] Coding staff will review the response and follow-up if needed. Please note: Queries are made part of the Legal Health Record. If you have any questions, please contact the author of this message via ITS. Dr. Christopher Bansal The patient has the documented diagnosis of unspecified CHF is documented in the patient H/P and cardiology consult and subsequent progress notes. Additional information regarding the type, acuity of CHF is requested. History/Risk Factors: Heart Failure, COPD, Hypertension, lung CA, Former smoker Clinical Indicators: 72-year-old male present with difficulty breathing per EMS, home at 95% on 3 L. Patient complains of lower extremity edema and drainage. No PND. 05/02 VS: 111/64 91 18 95% 3/l NC 05/02 Labs: BNP 2240 02/08 ECH0: EF 45-50% mild LVH, severe left atrial of dictation, mild MR. No pericardial effusion. Patient has undergone thoracentesis for left pleural effusion performed by Dr. Brumfield yesterday with removal of 850 ML's of turbid colored fluid. Patient is status post Lasix 60 mg 1 followed by 20 mg every 12 hours. EKG sinus rhythm vent rate 91 BPM Chest x-ray: 05/02 pattern is typical for heart failure favored over pneumonia. Cardiomegaly can be on the basis of cardiac disease or pericardial effusion. Treatment: Cardiac monitoring/Telemetry Coreg 6.25 MG PO BID, Lipitor 20 MG PO Daily, Lasix 20MG IV Q12 8-05/06 In your professional opinion, can you please clarify the acuity and type of CHF if known? [ ] Acute Systolic Heart Failure (reduced EF) [ ] Chronic Systolic Heart Failure (reduced EF) [ ] Acute on Chronic Systolic Heart Failure (reduced EF) [ ] Acute Diastolic Heart Failure (preserved EF) [xx ] Chronic Diastolic Heart Failure (preserved EF) [ ] Acute on Chronic Diastolic Heart Failure (preserved EF) [ ] Acute Systolic & Diastolic Heart Failure [ ] Chronic Systolic & Diastolic Heart Failure [ ] Acute on Chronic Heart Failure Systolic & Diastolic Heart Failure [ ] Other, please specify [ ] Unable to determine (Template Last Revised: June 2020) MTDD
[2023-05-06 12:43] VITALS: PULSE 88
[2023-05-06] MEDS: METHADONE 10 MG TAB PO PRN (13:46)
--- NOTE | 2023-05-06 19:45 | P.PN ---
Subjective Progress Note Date: 05/06/23 Principal diagnosis: COPD exacerbation. Metastatic prostate carcinoma In f/u today pt is reporting control over MS pain with meds, the pain does impact his ability to get around. Breathing is much better after 850cc thoracentesis. Objective - Vital Signs Vital signs: Vital Signs Temp 98.5 F 05/06/23 09:05 Pulse 88 05/06/23 12:19 Resp 16 05/06/23 09:05 BP 101/58 05/06/23 09:05 Pulse Ox 94 L 05/06/23 09:06 FiO2 Intake & Output 05/05/23 05/06/23 05/06/23 18:59 06:59 18:59 Intake Total 1560 240 Output Total 950 2000 Balance 610 -1999 240 Weight 90.5 kg Intake: Oral 1560 240 Output: Urine 950 2000 Other: Voiding Method Indwelling Catheter Indwelling Catheter Indwelling Catheter # Voids 1 # Bowel Movements 2 - Constitutional General appearance: Present: average body habitus, cooperative, no acute distress - EENT Eyes: Present: anicteric sclerae, EOMI ENT: Present: hearing grossly normal - Respiratory Details: reap unlabored at rest - Peripheral edema leg Peripheral Edema: bilateral: Trace - Neurologic Neurologic: Present: CNII-XII intact - Musculoskeletal Musculoskeletal: Present: generalized weakness - Psychiatric Psychiatric: Present: A&O x's 3, appropriate affect, intact judgment & insight - Labs CBC & Chem 7: 05/04/23 08:39 05/04/23 08:39 Labs: Abnormal Lab Results - Last 24 Hours (Table) 05/05/23 05/05/23 05/06/23 Range/Units 16:21 20:31 11:58 POC Glucose (mg/dL) 182 H 184 H 132 H (70-110) mg/dL Microbiology - Last 24 Hours (Table) 05/02/23 13:31 Blood Culture - Preliminary Blood - Imaging and Cardiology PET scan report and image reviewed with pt at his request Assessment and Plan (1) Pleural effusion Status: Acute Priority: High Code(s): J90 - PLEURAL EFFUSION, NOT ELSEWHERE CLASSIFIED SNOMED Code(s): 73671756 (2) Prostate cancer metastatic to bone Status: Acute Priority: High Code(s): C61 - MALIGNANT NEOPLASM OF PROSTATE; C79.51 - SECONDARY MALIGNANT NEOPLASM OF BONE SNOMED Code(s): 07824300 Plan: SOB -Pleural effusion, s/p 850cc thoracentesis. Breathing is much better per pt -Cytology pending Metastatic prostate cancer -Reviewed PET scan with pt. Significant mona metastasis -Pt cont on casodex-he does have Rx at home -Zometa given today-discussed case with Attending who will let pt have before DC -Stated on calcium and vit D supplement. Pt encouraged to cont at home Malignancy related pain -Pt encouraged to use pain meds -Reviewed prevention of narcotic induced constipation -With treatment of disease, hopefully that will help with some of the pain as well F/U in 3 days with Medical Oncologist for discussion and to develop plan of care. Did discuss briefly taxotere chemotherapy.
--- NOTE | 2023-05-07 06:44 | P.DS ---
Providers Date of admission: 05/02/23 15:51 Attending physician: Shivam Lo MD Consults: 05/02/23 15:17 Consult Physician Routine Consulting Provider: Hannah Brumfield Consult Reason/Comments: History of lung cancer with COPD exacerbation Do you want consulting provider notified?: Yes 05/02/23 18:08 Consult Physician Routine Consulting Provider: Christopher Bansal Consult Reason/Comments: Acute on Chronic CHF Do you want consulting provider notified?: Yes 05/03/23 06:06 Consult Physician Routine Consulting Provider: Rashad Ignacio Consult Reason/Comments: HX of Lung and Prostate Cnacer, presents with metastatic disease PET Do you want consulting provider notified?: Yes Primary care physician: [facility] Course: Diagnoses: Acute hypoxic respiratory failure secondary to moderate-sized left-sided pleural effusion, status post thoracocentesis with improvement in pleural effusion and patient's symptoms History of metastatic prostate cancer with extensive bone metastases History of squamous cell lung cancer with previous treatment with chemo and radiation intolerant to immunotherapy History of recurrent pleural effusion and right lung needing thoracentesis COPD with exacerbation Coronary artery disease with history of PCI Essential hypertension History of DVT on anticoagulation with [facility] course: 72-year-old gentleman with past medical history significant for squamous cell carcinoma of the lung diagnosed in March 2020, received treatment with chemo and radiation, history of prostate cancer with metastatic disease to the bone, history of pleural effusion on the right lung with need for thoracentesis, COPD, congestive heart failure, hypertension, peripheral vascular disease, coronary artery disease presents to the emergency department with complains of worsening shortness of breath. Patient was recently admitted to a hospital in March when he was transferred to [facility] and had bone biopsy done which showed metastatic prostate cancer, patient has followed up with urology and was started on Casodex. Patient did have an outpatient PET scan done on 04/25/2023 and was found to have diffuse metastatic disease throughout every visualized bone. Multiple rib lesions were seen as well. Patient was found to have left-sided pleural effusion status post thoracocentesis with improvement of his symptoms, cytology is pending but malignancy is highly suspected.. Postprocedure patient improved, since yesterday patient was eager to go home and today is the same he was very anxious to go home and be discharged and follow-up as an outpatient. Pulmonary team has radicular the patient for discharge and as discussed the case with oncology team who agreed to discharge him after receiving dose of zeledronicacid to help him with his bone metastasis, patient pain looks controlled. Patient confirmed to me he has a follow-up appointment with his oncologist Dr. Ignacio to 3 days on 05/09 that he intends to follow up with. On the day of discharge. Significant dyspnea or chest pain no change in urine or bowel habits pain was controlled no fever. Oxygen delivered at bedside and currently he is on 2-3 L/m of oxygen via nasal cannula. Patient was cleared for discharge by all consultants. Problems and management plan were discussed with the patient and he verbalized understanding and acceptance Patient was found stable and can be discharged home in guarded prognosis however he needs follow-up as an outpatient. Patient was instructed to follow up with PCP Dr. Bellamy within one week and patient agrees Patient agrees to follow up with his oncologist Dr. Ignacio on 05/09 and with candy starch mold printer Dr. Cordero on 05/15. Physical exam Gen: patient is a AAOx3, no distress CVS: S1-S2, RRR, no murmur Lungs: B/L CTA, no wheezing Abdomen: soft, no distention, no tenderness, positive bowel sounds Extremity: no leg edema or induration Time spent more than 35 minutes Plan - Discharge Summary Discharge Rx Participant: Yes New Discharge Prescriptions: New Furosemide [Lasix] 20 mg PO BID #60 tab Calcium Carb-Vit D 500Mg-5Mcg [Oscal 500+D 5 Mcg (200 Iu)] 1 each PO BID- W/MEALS #60 tab Continue Atorvastatin [Lipitor] 20 mg PO DAILY predniSONE 5 mg PO BID Apixaban [Eliquis] 5 mg PO BID Naloxone HCl [Narcan] 4 mg NASAL DIRECTED PRN PRN Reason: OVERDOSE Methadone HCl 10 mg PO BID PRN PRN Reason: Pain methocarbamoL [Robaxin] 1,000 mg PO QID PRN PRN Reason: Muscle Pain Bicalutamide [Casodex] 50 mg PO DAILY #30 tab ALPRAZolam [Xanax] 0.25 mg PO BID PRN PRN Reason: Anxiety HYDROmorphone HCL 8 mg PO Q4H PRN PRN Reason: Pain ondansetron HCL [Zofran] 8 mg PO DAILY PRN PRN Reason: Nausea Tamsulosin [Flomax] 0.4 mg PO DAILY oxyCODONE-APAP 10-325MG [Percocet 10-325 mg] 1 tab PO Q6H PRN PRN Reason: Pain Pantoprazole [Protonix] 40 mg PO BID #60 tab Famotidine [Pepcid] 20 mg PO BID Ondansetron Odt [Zofran ODT] 8 mg PO BID PRN PRN Reason: Nausea Docusate [Colace] 300 mg PO BID Multivit-Mins/Iron/Folic/Lycop [Centrum Men's Tablet] 1 tab PO DAILY Ipratropium-Albuterol Nebulize [Duoneb 0.5 mg-3 mg/3 ml Soln] 3 ml INHALATION RT-Q6H Formoterol Fumarate [Perforomist] 20 mcg INHALATION RT-BID Thiamine [Vitamin B-1] 100 mg PO DAILY Aspirin 81 mg PO DAILY tab carvediloL [Coreg] 6.25 mg PO BID #60 tablet Discontinued Amoxic-Pot Clav 500-125 mg [Augmentin 500-125 mg] 1 tab PO Q12HR Discharge Medication List Ipratropium-Albuterol Nebulize [Duoneb 0.5 mg-3 mg/3 ml Soln] 3 ml INHALATION RT-Q6H 07/11/21 [History] Atorvastatin [Lipitor] 20 mg PO DAILY 03/24/22 [History] predniSONE 5 mg PO BID 02/08/23 [History] Apixaban [Eliquis] 5 mg PO BID 03/10/23 [History] Formoterol Fumarate [Perforomist] 20 mcg INHALATION RT-BID 03/10/23 [History] Methadone HCl 10 mg PO BID PRN 03/10/23 [History] Naloxone HCl [Narcan] 4 mg NASAL DIRECTED PRN 03/10/23 [History] Thiamine [Vitamin B-1] 100 mg PO DAILY 03/10/23 [History] methocarbamoL [Robaxin] 1,000 mg PO QID PRN 03/10/23 [History] Aspirin 81 mg PO DAILY tab 03/28/23 [Rx] Bicalutamide [Casodex] 50 mg PO DAILY #30 tab 03/28/23 [Rx] ALPRAZolam [Xanax] 0.25 mg PO BID PRN 04/11/23 [History] HYDROmorphone HCL 8 mg PO Q4H PRN 04/11/23 [History] Tamsulosin [Flomax] 0.4 mg PO DAILY 04/11/23 [History] ondansetron HCL [Zofran] 8 mg PO DAILY PRN 04/11/23 [History] oxyCODONE-APAP 10-325MG [Percocet 10-325 mg] 1 tab PO Q6H PRN 04/11/23 [History] Pantoprazole [Protonix] 40 mg PO BID #60 tab 04/13/23 [Rx] carvediloL [Coreg] 6.25 mg PO BID #60 tablet 04/13/23 [Rx] Docusate [Colace] 300 mg PO BID 05/02/23 [History] Famotidine [Pepcid] 20 mg PO BID 05/02/23 [History] Multivit-Mins/Iron/Folic/Lycop [Centrum Men's Tablet] 1 tab PO DAILY 05/02/23 [History] Ondansetron Odt [Zofran ODT] 8 mg PO BID PRN 05/02/23 [History] Calcium Carb-Vit D 500Mg-5Mcg [Oscal 500+D 5 Mcg (200 Iu)] 1 each PO BID-W/MEALS #60 tab 05/06/23 [Rx] Furosemide [Lasix] 20 mg PO BID #60 tab 05/06/23 [Rx] Follow up Appointment(s)/Referral(s): Ben Paul MD [STAFF PHYSICIAN] - 05/15/23 10:00 am Rashad Ignacio [STAFF PHYSICIAN] - 05/09/23 11:00 am [facility] [NON-STAFF] - Chris Bellamy MD [Primary Care Provider] - 05/08/23 9:00 am [facility] [NON-STAFF] - Patient Instructions/Handouts: Pulmonary Edema (DC), COPD (Chronic Obstructive Pulmonary Disease) (DC) Activity/Diet/Wound Care/Special Instructions: Hospital bed and trapeze through [facility]. Equipment to be delivered to the home today Home Oxygen ordered through [facility]. Discharge Disposition: HOME WITH HOME HEALTH SERVICES
[2023-05-07] MEDS ORDERED: predniSONE 5 MG TAB PO SCH (09:00)
== END 2023-05-06 14:06 | disposition home health service (06) | DRG 186 ==
LOC: EC 12:53 → 3SCARD 15:51
PROVIDERS: ADMIT Internal Medicine; ATTEND Internal Medicine
PROC: 0W9B3ZZ Drainage of Left Pleural Cavity, Percutaneous Approach (ICD-10-PCS; principal; 2023-05-02)
DX: J90 Pleural effusion, not elsewhere classified (principal); J96.01 Acute respiratory failure with hypoxia; I50.32 Chronic diastolic (congestive) heart failure; I31.39 Other pericardial effusion (noninflammatory); C79.51 Secondary malignant neoplasm of bone; M84.451A Pathological fracture, right femur, initial encounter for fracture; C34.90 Malignant neoplasm of unspecified part of unspecified bronchus or lung; C61 Malignant neoplasm of prostate; G83.89 Other specified paralytic syndromes; I73.9 Peripheral vascular disease, unspecified; J44.9 Chronic obstructive pulmonary disease, unspecified; I11.0 Hypertensive heart disease with heart failure; D63.0 Anemia in neoplastic disease; G89.3 Neoplasm related pain (acute) (chronic); N40.0 Benign prostatic hyperplasia without lower urinary tract symptoms; E78.5 Hyperlipidemia, unspecified; M54.9 Dorsalgia, unspecified; K59.00 Constipation, unspecified; I25.10 Atherosclerotic heart disease of native coronary artery without angina pectoris; Z20.822 Contact with and (suspected) exposure to COVID-19; Z92.21 Personal history of antineoplastic chemotherapy; Z92.3 Personal history of irradiation; Z88.8 Allergy status to other drugs, medicaments and biological substances; Z95.5 Presence of coronary angioplasty implant and graft; Z79.01 Long term (current) use of anticoagulants; Z86.718 Personal history of other venous thrombosis and embolism; Z79.899 Other long term (current) drug therapy; Z79.52 Long term (current) use of systemic steroids; Z79.51 Long term (current) use of inhaled steroids; Z79.82 Long term (current) use of aspirin; I25.2 Old myocardial infarction; Z87.891 Personal history of nicotine dependence; Z80.1 Family history of malignant neoplasm of trachea, bronchus and lung; I48.0 Paroxysmal atrial fibrillation
CPT/HCPCS: 36415; 71045; 71046; 72132; 80048; 80053; 83605; 83735; 83880; 84153; 84154; 84484; 85025; 85027; 85610; 85730; 86140; 87040; 87636; 88108; 88305; 88341; 88342; 93005; 94640; 94760; 96374; 99285

== ENCOUNTER 2023-05-17 19:29 | Inpatient (IN) | payer OTHER ==
[2023-05-17 20:30] LABS: Anisocytosis Slight; Basophils % (A) 0 %; Eosinophils # (A) 0.1 k/uL (0-0.7); Eosinophils % (A) 2 %; HCT 21.7 % (39.0-53.0); Hypochromasia Marked; Lymphocytes # (A) 0.2 k/uL (1.0-4.8); Lymphocytes % (A) 5 %; MCH 29.5 pg (25.0-35.0); MCHC 31.7 g/dL (31.0-37.0); MCV 93.2 fL (80.0-100.0); Macrocytosis Slight; Mean Platelet Volume 7.5; Monocytes # (A) 0.3 k/uL (0-1.0); Monocytes % (A) 7 %; Neutrophils # (A) 3.9 k/uL (1.3-7.7); Neutrophils % (A) 84 %; Platelet Count 228 k/uL (150-450); Poikilocytosis Slight; RBC 2.33 m/uL (4.30-5.90); RDW 19.4 % (11.5-15.5); WBC 4.6 k/uL (3.8-10.6)
[2023-05-17 20:43] LABS: Partial Thromboplastin Time 25.8 sec (22.0-30.0)
[2023-05-17 20:48] LABS: ALT 10 U/L (4-49); AST 34 U/L (17-59); African American GFR (CKD) >90 (>60 ml/min/1.73 sqM); Albumin 2.6 g/dL (3.5-5.0); Alkaline Phosphatase 483 U/L (38-126); Anion Gap 7 mmol/L; Blood Urea Nitrogen 20 mg/dL (9-20); Calcium 7.2 mg/dL (8.4-10.2); Carbon Dioxide 30 mmol/L (22-30); Chloride 99 mmol/L (98-107); Glucose 108 mg/dL (74-99); Non-African American GFR(CKD) >90 (>60 ml/min/1.73 sqM); Potassium 3.8 mmol/L (3.5-5.1); Sodium 136 mmol/L (137-145); Total Bilirubin 0.3 mg/dL (0.2-1.3)
[2023-05-17 20:50] LABS: HGB 6.9 gm/dL (13.0-17.5)
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
[2023-05-17 20:56] LABS: NT-Pro-B-Type Natriuretic Pept 1970 pg/mL
--- NOTE | 2023-05-17 20:59 | XR ---
EXAMINATION TYPE: XR chest 2V DATE OF EXAM: 05/17/2023 8:32 PM CLINICAL INDICATION:Male, 72 years old with history of difficulty breathing; [facility] COMPARISON: Chest radiographs from 05/03/2023 TECHNIQUE: XR chest 2V Frontal and lateral views of the chest. FINDINGS: Lungs/Pleura: No evidence of focal consolidation or pneumothorax. Blunting of the costophrenic angles is present. Pulmonary vascularity: Pulmonary vascular congestion. Heart/mediastinum: Cardiomediastinal silhouette is enlarged and stable. Musculoskeletal: No acute osseous pathology. IMPRESSION: Cardiomegaly, pulmonary vascular congestion and bilateral pleural effusions. Correlate with BNP for c ongestive heart failure.
[2023-05-17] MEDS ORDERED: FUROSEMIDE 10 MG/ML 4 ML VIAL IV STA (21:26)
[2023-05-17] MEDS ORDERED: NALOXONE 0.4 MG/ML 1 ML VIAL IV PRN (21:27)
[2023-05-17] MEDS ORDERED: ACETAMINOPHEN TAB 325 MG TAB PO PRN (21:27)
[2023-05-18] MEDS: oxyCODONE-APAP 10-325MG 1 EACH TAB PO PRN ×3 (02:15→22:12)
[2023-05-18] MEDS ORDERED: IPRATROPIUM-ALBUTEROL 3 ML NEB INHALATION PRN (05:14)
[2023-05-18] MEDS ORDERED: METHADONE 10 MG TAB PO PRN (08:01)
[2023-05-18] MEDS ORDERED: methocarbamoL 500 MG TAB PO PRN (08:01)
[2023-05-18] MEDS: IPRATROPIUM-ALBUTEROL 3 ML NEB INHALATION SCH ×3 (08:04→20:26)
[2023-05-18] MEDS ORDERED: predniSONE 5 MG TAB PO SCH (09:00)
[2023-05-18] MEDS: FORMOTEROL FUMARATE 20 MCG/2 ML NEBU INHALATION SCH ×2 (09:19→20:26)
--- NOTE | 2023-05-18 09:33 | US ---
EXAMINATION TYPE: US chest DATE OF EXAM: 05/18/2023 COMPARISON: None CLINICAL INDICATION: Male, 72 years old with history of Bilateral effusions; TECHNIQUE: Targeted ultrasound of the posterior lower EXAM MEASUREMENTS: Right Pleural Effusion pocket size: 3.2 cm Left Pleural Effusion pocket size: 5.4 cm Left skin surface to fluid distance: 3.6 cm Right side NOT marked for possible thoracentesis outside the dept. Left side marked for possible thoracentesis outside the dept. Pulmonologists are able to review the images in the patient?s EMR. IMPRESSIONS: Left pleural effusion marked for thoracentesis.
[2023-05-18] MEDS: FUROSEMIDE 10 MG/ML 4 ML VIAL IV SCH ×2 (09:35→22:12)
[2023-05-18] MEDS: CALCIUM CARB-VIT D 500 MG-5 MCG TAB PO SCH ×2 (09:36→18:29)
[2023-05-18] MEDS: THIAMINE 100 MG TAB PO SCH (09:38)
[2023-05-18] MEDS: PANTOPRAZOLE 40 MG TABLET PO SCH ×2 (09:38→22:12)
[2023-05-18] MEDS: ATORVASTATIN 20 MG TAB PO SCH (09:38)
[2023-05-18] MEDS: carvediloL 6.25 MG TAB PO SCH ×2 (09:38→18:29)
[2023-05-18] MEDS: MULTIVITAMINS, THERA 1 EACH TAB PO SCH (09:38)
[2023-05-18] MEDS: guaiFENesin-DM 600/30MG 1 EACH TAB.ER.12H PO SCH ×2 (09:39→22:14)
[2023-05-18] MEDS: TAMSULOSIN 0.4 MG CAP.ER.24H PO SCH (09:39)
[2023-05-18] MEDS: BICALUTAMIDE 50 MG TAB PO SCH (09:39)
[2023-05-18 11:16] LABS: Anisocytosis Slight; Basophils % (A) 1 %; Eosinophils % (A) 1 %; HCT 24.2 % (39.0-53.0); HGB 7.7 gm/dL (13.0-17.5); Hypochromasia Marked; Lymphocytes # (A) 0.2 k/uL (1.0-4.8); Lymphocytes % (A) 6 %; MCH 29.5 pg (25.0-35.0); MCHC 31.6 g/dL (31.0-37.0); MCV 93.1 fL (80.0-100.0); Macrocytosis Slight; Mean Platelet Volume 7.5; Monocytes # (A) 0.3 k/uL (0-1.0); Monocytes % (A) 7 %; Neutrophils # (A) 3.6 k/uL (1.3-7.7); Neutrophils % (A) 84 %; Platelet Count 200 k/uL (150-450); Poikilocytosis Slight; RDW 18.9 % (11.5-15.5); WBC 4.2 k/uL (3.8-10.6)
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
[2023-05-18] MEDS: methylPREDNISolone SOD SUCCI 125 MG/2 ML VIAL IV SCH ×3 (13:03→22:53)
[2023-05-18] MEDS: ALPRAZolam 0.25 MG TAB PO PRN (13:04)
[2023-05-18 13:58] LABS: ALT 11 U/L (4-49); AST 38 U/L (17-59); African American GFR (CKD) >90 (>60 ml/min/1.73 sqM); Albumin 2.7 g/dL (3.5-5.0); Alkaline Phosphatase 504 U/L (38-126); Anion Gap 11 mmol/L; Blood Urea Nitrogen 22 mg/dL (9-20); Calcium 7.3 mg/dL (8.4-10.2); Carbon Dioxide 26 mmol/L (22-30); Chloride 100 mmol/L (98-107); Glucose 97 mg/dL (74-99); Non-African American GFR(CKD) >90 (>60 ml/min/1.73 sqM); Potassium 3.5 mmol/L (3.5-5.1); Sodium 137 mmol/L (137-145); Total Bilirubin 0.4 mg/dL (0.2-1.3)
[2023-05-18] MEDS ORDERED: IPRATROPIUM-ALBUTEROL 3 ML NEB INHALATION SCH (14:00)
--- NOTE | 2023-05-18 14:46 | CA ---
Transthoracic Echo Report Name: Joe Matias Age: 72 Gender: M : 1950 Exam Date: 05/18/2023 11:40 Exam Location: [place] [facility] Ht (in): 70 Wt (lb): 200 Ordering Physician: Jose Conroy Attending/Referring Phys: Coding Manager Yevgeniy Parada Procedure CPT: Indications: chf Cardiac Hx: Technical Quality: Technically difficult study Contrast 1: Definity Total Dose (mL): 2 Contrast 2: Total Dose (mL): MEASUREMENTS (Male / Female) Normal Values 2D ECHO LV Diastolic Diameter PLAX 4.8 cm 4.2 - 5.9 / 3.9 - 5.3 cm LV Systolic Diameter PLAX 2.9 cm IVS Diastolic Thickness 1.2 cm 0.6 - 1.0 / 0.6 - 0.9 cm LVPW Diastolic Thickness 1.3 cm 0.6 - 1.0 / 0.6 - 0.9 cm LV Relative Wall Thickness 0.5 RV Internal Dim ED PLAX 2.8 cm LVOT Diameter 2.3 cm Aortic Root Diameter 3.7 cm LV Diastolic Volume MOD BP 69.3 cm??? 67 - 155 / 56 - 104 cm??? LV Systolic Volume MOD BP 28.9 cm??? 22 - 58 / 19 - 49 cm??? LV Ejection Fraction MOD BP 58.3 % >= 55 % LV Cardiac Index MOD BP 2098.9 cm???/min???m??? LV Diastolic Volume MOD 4C 90.6 cm??? LV Systolic Volume MOD 4C 37.8 cm??? LV Ejection Fraction MOD 4C 58.2 % LV Cardiac Index MOD 4C 2740.0 cm???/min???m??? LV Diastolic Length 4C 8.6 cm LV Systolic Length 4C 8.3 cm LV Diastolic Volume MOD 2C 47.2 cm??? LV Systolic Volume MOD 2C 18.6 cm??? LV Ejection Fraction MOD 2C 60.6 % LV Cardiac Index MOD 2C 1485.2 cm???/min???m??? LV Diastolic Length 2C 7.6 cm LV Systolic Length 2C 6.9 cm LA Volume 58.5 cm??? 18 - 58 / 22 - 52 cm??? LA Volume Index 27.4 cm???/m??? 16 - 28 cm???/m??? DOPPLER AV Peak Velocity 138.7 cm/s AV Peak Gradient 7.7 mmHg AV Mean Velocity 107.7 cm/s AV Mean Gradient 5.2 mmHg AV Velocity Time Integral 21.1 cm AI Peak Velocity 347.8 cm/s AI Peak Gradient 48.4 mmHg AI Pressure Half Time 490.9 ms LVOT Peak Velocity 84.1 cm/s LVOT Peak Gradient 2.8 mmHg LVOT Velocity Time Integral 15.5 cm LVOT Stroke Volume 65.5 cm??? LVOT Stroke Volume Index 31.4 ml/m??? LVOT Cardiac Index 3404.2 cm???/min???m??? AV Area Cont Eq vti 3.1 cm??? AV Area Cont Eq pk 2.6 cm??? MV Peak Velocity 125.3 cm/s MV Peak Gradient 6.3 mmHg MV Mean Velocity 70.3 cm/s MV Mean Gradient 2.4 mmHg MV Velocity Time Integral 25.1 cm Mitral E Point Velocity 108.4 cm/s Mitral A Point Velocity 34.0 cm/s Mitral E to A Ratio 3.2 MV Deceleration Time 151.1 ms TR Peak Velocity 127.6 cm/s TR Peak Gradient 6.5 mmHg PV Peak Velocity 107.9 cm/s PV Peak Gradient 4.7 mmHg FINDINGS Left Ventricle Mild concentric LVH. Normal LV size. Basalseptal and inferior basal hypokenesis. Left ventricular ejection fraction is estimated at 55-60 %. Right Ventricle Normal right ventricular size. Right Atrium Normal right atrial size. Left Atrium LA volue index= 28ml/m2 Mitral Valve Mild thickening/calcification of the anterior mitral valve leaflet. Trace MR. Aortic Valve Aortic valve not well visualized. Mild AV calcification/sclerosis. No aortic regurgitation. No aortic stenosis. Mild AI. Tricuspid Valve Structurally normal tricuspid valve. Trace TR. Pulmonic Valve Pulmonic valve not well visualized. No pulmonic regurgitation. Pericardium Normal pericardium. Aorta AO root dewey= 3.7cm CONCLUSIONS Basal inferior wall hypokinesis, inferior septal hypokinesis Ejection fraction 55% Previewed by: Dr. Lico Cervantes MD (Electronically Signed) Final Date: 18 May 2023 14:45
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
[2023-05-18] MEDS: HYDROmorphone 2 MG TAB PO PRN (18:30)
[2023-05-18] MEDS: BUDESONIDE 1 MG/2 ML NEBU INHALATION SCH (20:27)
[2023-05-18] MEDS: APIXABAN 5 MG TAB PO SCH (22:13)
[2023-05-19] MEDS: ALPRAZolam 0.25 MG TAB PO PRN ×3 (00:44→22:27)
[2023-05-19] MEDS: IPRATROPIUM-ALBUTEROL 3 ML NEB INHALATION SCH ×4 (01:50→20:51)
[2023-05-19] MEDS: CALCIUM CARB-VIT D 500 MG-5 MCG TAB PO SCH ×2 (06:03→17:25)
[2023-05-19] MEDS: carvediloL 6.25 MG TAB PO SCH ×2 (06:03→17:25)
[2023-05-19] MEDS: methylPREDNISolone SOD SUCCI 125 MG/2 ML VIAL IV SCH ×4 (06:03→23:41)
[2023-05-19] MEDS: HYDROmorphone 2 MG TAB PO PRN ×3 (06:03→21:43)
[2023-05-19] MEDS: FORMOTEROL FUMARATE 20 MCG/2 ML NEBU INHALATION SCH ×2 (08:03→20:51)
[2023-05-19] MEDS: BUDESONIDE 1 MG/2 ML NEBU INHALATION SCH ×2 (08:04→20:51)
[2023-05-19] MEDS: MULTIVITAMINS, THERA 1 EACH TAB PO SCH (10:02)
[2023-05-19] MEDS: FUROSEMIDE 10 MG/ML 4 ML VIAL IV SCH ×2 (10:02→21:42)
[2023-05-19] MEDS: APIXABAN 5 MG TAB PO SCH ×2 (10:02→21:42)
[2023-05-19] MEDS: TAMSULOSIN 0.4 MG CAP.ER.24H PO SCH (10:02)
[2023-05-19] MEDS: BICALUTAMIDE 50 MG TAB PO SCH (10:03)
[2023-05-19] MEDS: THIAMINE 100 MG TAB PO SCH (10:03)
[2023-05-19] MEDS: PANTOPRAZOLE 40 MG TABLET PO SCH ×2 (10:03→21:42)
[2023-05-19] MEDS: guaiFENesin-DM 600/30MG 1 EACH TAB.ER.12H PO SCH ×2 (10:03→22:28)
[2023-05-19] MEDS: ATORVASTATIN 20 MG TAB PO SCH (10:03)
--- NOTE | 2023-05-19 10:27 | P.PN ---
Subjective Progress Note Date: 05/19/23 Principal diagnosis: Shortness of breath. This is a very pleasant 72-year-old male patient with a known history of chronic obstructive pulmonary disease, congestive heart failure, hypertension, peripheral vascular disease, coronary artery disease with previous stent placement, chronic back pain, former smoker. He is also known to have a history of squamous cell lung cancer diagnosed March 2020 with previous chemotherapy and radiation treatments. He was trialed on immunotherapy however was discontinued due to poor tolerance. PET scan from 04/28/2023 revealed progressi on of disease with innumerable metastatic foci throughout every bone visualized with large pelvic mass and retroperitoneal lymphadenopathy. He has had recurrent bilateral pleural effusions and had undergone previous thoracentesis. He was recently hospitalized earlier this month and had undergone a left-sided thoracentesis on 05/02/2023 with 850 ML's of fluid removed. Cytology was negative for malignancy. He presented here to the emergency room again yesterday complaints of increasing shortness of breath, cough and congestion. Chest x-ray again shows cardiomegaly, pulmonary vascular congestion and bilateral pleural effusions. Previous echocardiogram had revealed mildly impaired left ventricular systolic function with ejection fraction 45-50%. Ultrasound of the chest revealed minimal pleural effusion 5.4 cm on the left and 3.2 cm on the right. White count 4.2. Initial hemoglobin was 6.9. He received 1 unit of packed red blood cells overnight. Current hemoglobin 7.7. Platelets 200,000. D-dimer 22.37. Sodium 136. Potassium 3.8. Bicarb 30. BUN 20. Creatinine 0.68. Glucose 108. ProBNP 1970. He's been initiated on Lasix 40 mg IV every 12 hours. He is seen today in consultation in the emergency department. He is awake and alert in no acute distress. He is maintaining O2 saturations in the 90s on 3 L/m per nasal cannula. He is dyspneic with conversation. Dyspneic with minimal exertion. He has significant cough and congestion and white foamy with occasional blood-tinged sputum. He has been anticoagulated with Eliquis. Progress note dated 05/19/2023. 72-year-old male unknown to us, with history of lung cancer, and metastatic prostate cancer. The patient was seen in consultation yesterday. Please see the note above. The patient has had recurrent bilateral pleural effusions, with thoracentesis on the right, 2, and thoracentesis on the left, 1. Currently, the patient's on 2 L of oxygen. He is not receiving any IV fluids. He does have small bilateral effusions, left greater than right. At the current time, thoracentesis is not contemplated. No new labs today. Labs from May 17 and are reviewed. All x-rays are reviewed. Objective - Vital Signs Vital signs: Vital Signs Temp 98 F 05/19/23 08:00 Pulse 105 H 05/19/23 08:25 Resp 20 05/19/23 08:00 BP 128/64 05/19/23 08:00 Pulse Ox 98 05/19/23 08:07 FiO2 Intake & Output 05/18/23 05/19/23 05/19/23 18:59 06:59 18:59 Intake Total 540 240 Output Total 700 600 Balance -160 -360 Weight 84.5 kg Intake: Oral 540 240 Output: Urine 700 600 Other: Voiding Method Indwelling Catheter - Exam No acute distress, oriented 3. No respiratory distress. No audible wheezing and use of accessory muscles or conversational dyspnea. HEENT examination is grossly unremarkable. Mucous membranes are moist. No oral lesions. Neck supple. Full range of motion. No adenopathy thyromegaly or neck vein distention. Cardiovascular examination reveals regular rhythm rate. S1-S2 normal. No S3 or S4. No discernible murmur noted. Heart sounds are distant. Heart rate 105 bpm. Lungs reveal mild scattered rhonchi. Diminished breath sounds at the bases. 2 L saturation is 98%. Breath sounds are equal bilaterally. Abdomen soft bowel sounds are heard. No masses or tenderness. Extremities are intact. No cyanosis clubbing or edema. Skin is without rash or lesion. Neurologic examination is brief but nonfocal. - Labs CBC & Chem 7: 05/18/23 09:57 05/18/23 09:57 Labs: Abnormal Lab Results - Last 24 Hours (Table) 05/18/23 05/18/23 05/18/23 Range/Units 09:57 09:57 09:57 RBC 2.60 L (4.30-5.90) m/uL Hgb 7.7 L (13.0-17.5) gm/dL Hct 24.2 L (39.0-53.0) % RDW 18.9 H (11.5-15.5) % Lymphocytes # 0.2 L (1.0-4.8) k/uL D-Dimer 22.37 H (<0.60) mg/L FEU BUN 22 H (9-20) mg/dL Creatinine 0.62 L (0.66-1.25) mg/dL Calcium 7.3 L (8.4-10.2) mg/dL Alkaline Phosphatase 504 H (38-126) U/L Total Protein 5.0 L (6.3-8.2) g/dL Albumin 2.7 L (3.5-5.0) g/dL Assessment and Plan Assessment: Acute hypoxemic respiratory failure secondary to recurrent bilateral pleural effusions. Last thoracentesis was 05/02/2023 on the left with 850 MLS removed. Cytology negative. Ultrasound today reveals a small recurrent pocket of 5.3 cm on the left and a 3.2 cm pocket on the right. History of recurrent right-sided pleural effusion, most recent thoracentesis done on 03/25/2022. Negative for cytologically malignant cells. There were destructive left sided rib lesions. Acute on chronic anemia, no obvious evidence of acute blood loss presenting hemoglobin 6.9. Received 1 unit packed red blood cells. Metastatic prostate cancer with extensive skeletal disease involvement with metastases. PET scan from 04/28/2023 revealed progression of disease with innumerable metastatic foci throughout every bone visualized with large pelvic mass and retroperitoneal lymphadenopathy. Pathologic fracture involving the right greater trochanter fracture/subacute. Chronic back pain. History of squamous cell lung cancer with previous chemo/radiation, intolerant of immunotherapy. . Chronic obstructive pulmonary disease, stable. Coronary artery disease with previous stent placement. Hyperlipidemia. Benign essential hypertension. Peripheral vascular occlusive disease.. History DVT. Former smoker. Plan: Plan dated 05/19/2023. The patient is seen today in room 357. He continues on oxygen at 2 L. Saturations are adequate. The patient continues on a factor X a inhibitor. No plans for thoracentesis at this time. Labs, x-rays, and medications are reviewed. The patient was placed on Solu-Medrol, as well as breathing treatment s, Mucinex, and a flutter valve. Additional recommendations and suggestions are forthcoming. Prognosis is obviously very poor. The patient has multiple metastatic deposits, from his prostate cancer. Time with Patient: Less than 30
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
--- NOTE | 2023-05-19 12:19 | P.PN ---
Subjective Progress Note Date: 05/19/23 This is Jose Conroy NP, I'm dictating on behalf of Dr. Cervantes's H&P and A&P. Patient was interviewed and examined. Patient's a pleasant 72-year-old male who presented to hospital with complaints of shortness of breath, hemoptysis, and exacerbation of congestive heart failure. Patient reports this morning that he is breathing somewhat better. Nursing reports that he is needed an increased amount of oxygen. Patient continues to have a congested cough with production. Patient's blood pressures within normal limits, his heart rate is somewhat elevated secondary to hypoxia. GENERAL: Well-appearing, well-nourished and in no acute distress. NECK: Supple without JVD or thyromegaly. LUNGS: Breath sounds clear to auscultation bilaterally. Respiration equal and unlabored. No wheezes, rales or rhonchi. HEART: Regular rate and rhythm without murmurs, rubs or gallops. S1 and S2 heard. EXTREMITIES: Normal range of motion, no edema. No clubbing or cyanosis. Peripheral pulses intact and strong. VITALS: Temp 98.0, pulse 92, respirations 20, blood pressure 120/64, O2 saturation 96% on 3 L TELEMETRY: Normal sinus rhythm LABS: White count 4.2, hemoglobin 7.7, platelets 200, sodium 137, potassium 3.5, B1 22, creatinine 0.62 IMPRESSION: 1. Acute exacerbation of congestive heart failure 2. Anemia secondary to anticoagulation 3. Atrial fibrillation with rapid ventricular response 4. Hypoxia PLAN: Continue Eliquis as ordered. Continue Lasix as ordered. No further recommendations from a cardiology standpoint. Objective - Vital Signs Vital signs: Vital Signs Temp 98 F 05/19/23 08:00 Pulse 105 H 05/19/23 08:25 Resp 20 05/19/23 08:00 BP 128/64 05/19/23 08:00 Pulse Ox 98 05/19/23 08:07 FiO2 Intake & Output 05/18/23 05/19/23 05/19/23 18:59 06:59 18:59 Intake Total 540 240 Output Total 700 600 Balance -160 -360 Weight 84.5 kg Intake: Oral 540 240 Output: Urine 700 600 Other: Voiding Method Indwelling Catheter Indwelling Catheter - Labs CBC & Chem 7: 05/18/23 09:57 05/18/23 09:57 Labs: Abnormal Lab Results - Last 24 Hours (Table) 05/18/23 Range/Units 09:57 BUN 22 H (9-20) mg/dL Creatinine 0.62 L (0.66-1.25) mg/dL Calcium 7.3 L (8.4-10.2) mg/dL Alkaline Phosphatase 504 H (38-126) U/L Total Protein 5.0 L (6.3-8.2) g/dL Albumin 2.7 L (3.5-5.0) g/dL
[2023-05-19] MEDS ORDERED: POTASSIUM CHLORIDE ER 20 MEQ TAB.ER PO STA (23:15)
[2023-05-19] MEDS ORDERED: ZINC OXIDE PASTE (Z-GUARD) 1 APPLIC TOPICAL PRN (23:33)
[2023-05-20] MEDS: IPRATROPIUM-ALBUTEROL 3 ML NEB INHALATION SCH ×4 (00:31→20:51)
[2023-05-20] MEDS: CALCIUM CARB-VIT D 500 MG-5 MCG TAB PO SCH ×2 (06:37→16:23)
[2023-05-20] MEDS: methylPREDNISolone SOD SUCCI 125 MG/2 ML VIAL IV SCH ×2 (06:37→11:24)
[2023-05-20] MEDS: carvediloL 6.25 MG TAB PO SCH ×2 (06:37→16:23)
[2023-05-20] MEDS: HYDROmorphone 2 MG TAB PO PRN ×3 (06:45→20:38)
[2023-05-20] MEDS: guaiFENesin-DM 600/30MG 1 EACH TAB.ER.12H PO SCH ×2 (08:43→20:39)
[2023-05-20] MEDS: TAMSULOSIN 0.4 MG CAP.ER.24H PO SCH (08:43)
[2023-05-20] MEDS: PANTOPRAZOLE 40 MG TABLET PO SCH ×2 (08:43→20:39)
[2023-05-20] MEDS: APIXABAN 5 MG TAB PO SCH ×2 (08:43→20:38)
[2023-05-20] MEDS: MULTIVITAMINS, THERA 1 EACH TAB PO SCH (08:43)
[2023-05-20] MEDS: ATORVASTATIN 20 MG TAB PO SCH (08:43)
[2023-05-20] MEDS: FUROSEMIDE 10 MG/ML 4 ML VIAL IV SCH ×2 (08:43→20:37)
[2023-05-20] MEDS: THIAMINE 100 MG TAB PO SCH (08:43)
[2023-05-20] MEDS: BICALUTAMIDE 50 MG TAB PO SCH (08:44)
[2023-05-20] MEDS: FORMOTEROL FUMARATE 20 MCG/2 ML NEBU INHALATION SCH ×2 (09:02→20:51)
[2023-05-20] MEDS: BUDESONIDE 1 MG/2 ML NEBU INHALATION SCH ×2 (09:02→20:51)
[2023-05-20 09:38] LABS: African American GFR (CKD) >90 (>60 ml/min/1.73 sqM); Anion Gap 11 mmol/L; Blood Urea Nitrogen 23 mg/dL (9-20); Calcium 7.5 mg/dL (8.4-10.2); Carbon Dioxide 28 mmol/L (22-30); Chloride 95 mmol/L (98-107); Glucose 172 mg/dL (74-99); Non-African American GFR(CKD) >90 (>60 ml/min/1.73 sqM); Potassium 4.1 mmol/L (3.5-5.1); Sodium 134 mmol/L (137-145)
--- NOTE | 2023-05-20 11:02 | P.PN ---
Subjective Progress Note Date: 05/20/23 Principal diagnosis: Shortness of breath. This is a very pleasant 72-year-old male patient with a known history of chronic obstructive pulmonary disease, congestive heart failure, hypertension, peripheral vascular disease, coronary artery disease with previous stent placement, chronic back pain, former smoker. He is also known to have a history of squamous cell lung cancer diagnosed March 2020 with previous chemotherapy and radiation treatments. He was trialed on immunotherapy however was discontinued due to poor tolerance. PET scan from 04/28/2023 revealed progressi on of disease with innumerable metastatic foci throughout every bone visualized with large pelvic mass and retroperitoneal lymphadenopathy. He has had recurrent bilateral pleural effusions and had undergone previous thoracentesis. He was recently hospitalized earlier this month and had undergone a left-sided thoracentesis on 05/02/2023 with 850 ML's of fluid removed. Cytology was negative for malignancy. He presented here to the emergency room again yesterday complaints of increasing shortness of breath, cough and congestion. Chest x-ray again shows cardiomegaly, pulmonary vascular congestion and bilateral pleural effusions. Previous echocardiogram had revealed mildly impaired left ventricular systolic function with ejection fraction 45-50%. Ultrasound of the chest revealed minimal pleural effusion 5.4 cm on the left and 3.2 cm on the right. White count 4.2. Initial hemoglobin was 6.9. He received 1 unit of packed red blood cells overnight. Current hemoglobin 7.7. Platelets 200,000. D-dimer 22.37. Sodium 136. Potassium 3.8. Bicarb 30. BUN 20. Creatinine 0.68. Glucose 108. ProBNP 1970. He's been initiated on Lasix 40 mg IV every 12 hours. He is seen today in consultation in the emergency department. He is awake and alert in no acute distress. He is maintaining O2 saturations in the 90s on 3 L/m per nasal cannula. He is dyspneic with conversation. Dyspneic with minimal exertion. He has significant cough and congestion and white foamy with occasional blood-tinged sputum. He has been anticoagulated with Eliquis. Progress note dated 05/19/2023. 72-year-old male unknown to us, with history of lung cancer, and metastatic prostate cancer. The patient was seen in consultation yesterday. Please see the note above. The patient has had recurrent bilateral pleural effusions, with thoracentesis on the right, 2, and thoracentesis on the left, 1. Currently, the patient's on 2 L of oxygen. He is not receiving any IV fluids. He does have small bilateral effusions, left greater than right. At the current time, thoracentesis is not contemplated. No new labs today. Labs from May 17 and are reviewed. All x-rays are reviewed. Progress note dated 05/20/2023. 72-year-old male seen today in room 357. He has a history of lung cancer, and widely metastatic prostate cancer. The patient is currently on 3 L of oxygen. He is not receiving any IV fluids. He does complain of ongoing chest congestion. Labs today include a sodium 134, potassium 4.1, chlorides 95, CO2 28, BUN 23, and creatinine 0.58. Objective - Vital Signs Vital signs: Vital Signs Temp 97.8 F 05/20/23 08:39 Pulse 88 05/20/23 09:17 Resp 18 05/20/23 09:17 BP 119/67 05/20/23 08:39 Pulse Ox 94 L 05/20/23 09:02 FiO2 Intake & Output 05/19/23 05/20/23 05/20/23 18:59 06:59 18:59 Intake Total 468 0 240 Output Total 3355 285 4042 Balance -1032 -500 -960 Weight 85.5 kg Intake: Oral 468 0 240 Output: Urine 2468 005 6211 Uretheral (Benjamin) 100 Other: Voiding Method Indwelling Catheter Indwelling Catheter Indwelling Catheter - Exam No acute distress, oriented 3. No respiratory distress. No audible wheezing and use of accessory muscles or conversational dyspnea. HEENT examination is grossly unremarkable. Mucous membranes are moist. No oral lesions. Neck supple. Full range of motion. No adenopathy thyromegaly or neck vein distention. Cardiovascular examination reveals regular rhythm rate. S1-S2 normal. No S3 or S4. No discernible murmur noted. Heart sounds are distant. Heart rate 88 bpm. Lungs reveal mild scattered rhonchi. Diminished breath sounds at the bases. 3 L saturation is 94%. Breath sounds are equal bilaterally. Abdomen soft bowel sounds are heard. No masses or tenderness. Extremities are intact. No cyanosis clubbing or edema. Skin is without rash or lesion. Neurologic examination is brief but nonfocal. - Labs CBC & Chem 7: 05/18/23 09:57 05/20/23 07:42 Labs: Abnormal Lab Results - Last 24 Hours (Table) 05/20/23 Range/Units 07:42 Sodium 134 L (137-145) mmol/L Chloride 95 L (98-107) mmol/L BUN 23 H (9-20) mg/dL Creatinine 0.58 L (0.66-1.25) mg/dL Glucose 172 H (74-99) mg/dL Calcium 7.5 L (8.4-10.2) mg/dL Microbiology - Last 24 Hours (Table) 05/19/23 01:55 Gram Stain - Final Sputum Sputum Culture - Final Assessment and Plan Assessment: Acute hypoxemic respiratory failure secondary to recurrent bilateral pleural effusions. Last thoracentesis was 05/02/2023 on the left with 850 MLS removed. Cytology negative. Ultrasound today reveals a small recurrent pocket of 5.3 cm on the left and a 3.2 cm pocket on the right. History of recurrent right-sided pleural effusion, most recent thoracentesis done on 03/25/2022. Negative for cytologically malignant cells. There were destructive left sided rib lesions. Acute on chronic anemia, no obvious evidence of acute blood loss presenting hemoglobin 6.9. Received 1 unit packed red blood cells. Metastatic prostate cancer with extensive skeletal disease involvement with metastases. PET scan from 04/28/2023 revealed progression of disease with innumerable metastatic foci throughout every bone visualized with large pelvic mass and retroperitoneal lymphadenopathy. Pathologic fracture involving the right greater trochanter fracture/subacute. Chronic back pain. History of squamous cell lung cancer with previous chemo/radiation, intolerant of immunotherapy. . Chronic obstructive pulmonary disease, stable. Coronary artery disease with previous stent placement. Hyperlipidemia. Benign essential hypertension. Peripheral vascular occlusive disease.. History DVT. Former smoker. Plan: Plan dated 05/19/2023. The patient is seen today in room 357. He continues on oxygen at 2 L. Saturations are adequate. The patient continues on a factor X a inhibitor. No plans for thoracentesis at this time. Labs, x-rays, and medications are reviewed. The patient was placed on Solu-Medrol, as well as breathing treatments, Mucinex, and a flutter valve. Additional recommendations and suggestions are forthcoming. Prognosis is obviously very poor. The patient has multiple metastatic deposits, from his prostate cancer. Plan dated 05/20/2023. The patient is seen today in room 357. He is on oxygen at 3 L. Saturations are in the mid 90s. He's not receiving any IV fluids. Labs, x-rays, medications are reviewed. He continues to use a flutter valve, to help him with his airway secretions. We will continue to follow make recommendations along the way. The patient was also placed on Mucinex, and corticosteroids. Prognosis is guarded. Labs, x-rays, and medications are reviewed. Time with Patient: Less than 30
[2023-05-20] MEDS: oxyCODONE-APAP 10-325MG 1 EACH TAB PO PRN (11:29)
[2023-05-20] MEDS: ONDANSETRON ODT 8 MG TAB.RAPDIS PO PRN (12:22)
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
[2023-05-20] MEDS: methylPREDNISolone SOD SUCCI 40 MG/ML 1 ML VIAL IV SCH (16:23)
[2023-05-20] MEDS ORDERED: LACTULOSE 20 GM/30 ML CUP PO ONE (21:00)
[2023-05-20] MEDS: ALPRAZolam 0.25 MG TAB PO PRN (21:45)
[2023-05-21] MEDS: methylPREDNISolone SOD SUCCI 40 MG/ML 1 ML VIAL IV SCH ×2 (00:49→09:32)
[2023-05-21] MEDS: HYDROmorphone 2 MG TAB PO PRN ×3 (00:49→23:58)
[2023-05-21] MEDS: IPRATROPIUM-ALBUTEROL 3 ML NEB INHALATION SCH ×4 (02:26→21:11)
[2023-05-21] MEDS: carvediloL 6.25 MG TAB PO SCH ×2 (06:38→17:34)
[2023-05-21] MEDS: CALCIUM CARB-VIT D 500 MG-5 MCG TAB PO SCH ×2 (06:38→17:34)
[2023-05-21] MEDS: FORMOTEROL FUMARATE 20 MCG/2 ML NEBU INHALATION SCH ×2 (07:55→21:11)
[2023-05-21] MEDS: BUDESONIDE 1 MG/2 ML NEBU INHALATION SCH ×2 (07:55→21:11)
[2023-05-21] MEDS: guaiFENesin-DM 600/30MG 1 EACH TAB.ER.12H PO SCH ×2 (09:33→20:04)
[2023-05-21] MEDS: APIXABAN 5 MG TAB PO SCH ×2 (09:33→20:04)
[2023-05-21] MEDS: PANTOPRAZOLE 40 MG TABLET PO SCH ×2 (09:33→20:04)
[2023-05-21] MEDS: ATORVASTATIN 20 MG TAB PO SCH (09:33)
[2023-05-21] MEDS: FUROSEMIDE 10 MG/ML 4 ML VIAL IV SCH (09:33)
[2023-05-21] MEDS: MULTIVITAMINS, THERA 1 EACH TAB PO SCH (09:33)
[2023-05-21] MEDS: TAMSULOSIN 0.4 MG CAP.ER.24H PO SCH (09:33)
[2023-05-21] MEDS: THIAMINE 100 MG TAB PO SCH (09:33)
[2023-05-21] MEDS: BICALUTAMIDE 50 MG TAB PO SCH (10:16)
[2023-05-21 10:42] LABS: African American GFR (CKD) >90 (>60 ml/min/1.73 sqM); Anion Gap 9 mmol/L; Blood Urea Nitrogen 22 mg/dL (9-20); Calcium 7.5 mg/dL (8.4-10.2); Carbon Dioxide 31 mmol/L (22-30); Chloride 95 mmol/L (98-107); Glucose 144 mg/dL (74-99); Non-African American GFR(CKD) >90 (>60 ml/min/1.73 sqM); Potassium 3.7 mmol/L (3.5-5.1); Sodium 135 mmol/L (137-145)
[2023-05-21] MEDS: predniSONE 20 MG TAB PO SCH (12:11)
[2023-05-21] MEDS: FUROSEMIDE 40 MG TAB PO SCH (15:18)
--- NOTE | 2023-05-21 15:57 | P.PN ---
Subjective Progress Note Date: 05/21/23 This is a very pleasant 72-year-old male patient with a known history of chronic obstructive pulmonary disease, congestive heart failure, hypertension, peripheral vascular disease, coronary artery disease with previous stent placement, chronic back pain, former smoker. He is also known to have a history of squamous cell lung cancer diagnosed March 2020 with previous chemotherapy and radiation treatments. He was trialed on immunotherapy however was discontinued due to poor tolerance. PET scan from 04/28/2023 revealed progression of disease with innumerable metastatic foci throughout every bone visualized with large pelvic mass and retroperitoneal lymphadenopathy. He has had recurrent bilateral pleural effusions and had undergone previous thoracentesis. He was recently hospitalized earlier this month and had undergone a left-sided thoracentesis on 05/02/2023 with 850 ML's of fluid rosa maria iram. Cytology was negative for malignancy. He presented here to the emergency room again yesterday complaints of increasing shortness of breath, cough and congestion. Chest x-ray again shows cardiomegaly, pulmonary vascular congestion and bilateral pleural effusions. Previous echocardiogram had revealed mildly impaired left ventricular systolic function with ejection fraction 45-50%. Ultrasound of the chest revealed minimal pleural effusion 5.4 cm on the left and 3.2 cm on the right. White count 4.2. Initial hemoglobin was 6.9. He received 1 unit of packed red blood cells overnight. Current hemoglobin 7.7. Platelets 200,000. D-dimer 22.37. Sodium 136. Potassium 3.8. Bicarb 30. BUN 20. Creatinine 0.68. Glucose 108. ProBNP 1970. He's been initiated on Lasix 40 mg IV every 12 hours. He is seen today in consultation in the emergency department. He is awake and alert in no acute distress. He is maintaining O2 saturations in the 90s on 3 L/m per nasal cannula. He is dyspneic with conversation. Dyspneic with minimal exertion. He has significant cough and congestion and white foamy with occasional blood-tinged sputum. He has been anticoagulated with Eliquis. Progress note dated 05/19/2023. 72-year-old male unknown to us, with history of lung cancer, and metastatic prostate cancer. The patient was seen in consultation yesterday. Please see the note above. The patient has had recurrent bilateral pleural effusions, with thoracentesis on the right, 2, and thoracentesis on the left, 1. Currently, the patient's on 2 L of oxygen. He is not receiving any IV fluids. He does have small bilateral effusions, left greater than right. At the current time, t horacentesis is not contemplated. No new labs today. Labs from May 17 and are reviewed. All x-rays are reviewed. Progress note dated 05/20/2023. 72-year-old male seen today in room 357. He has a history of lung cancer, and widely metastatic prostate cancer. The patient is currently on 3 L of oxygen. He is not receiving any IV fluids. He does complain of ongoing chest congestion. Labs today include a sodium 134, potassium 4.1, chlorides 95, CO2 28, BUN 23, and creatinine 0.58. On today's evaluation of 05/21/2020, the patient has stable without any episodes of hemoptysis. The patient is maintained on anticoagulation with Eliquis 5 mg by mouth twice a day. As mentioned earlier, the patient has history of non- small cell lung cancer and the patient also has diffuse metastatic prostate cancer with extensive skeletal metastases. He also has bilateral pleural effusion and a left-sided pleural effusion was drained back in 05/02/2023 and was negative for malignancy. During this current admission, the patient drop in hemoglobin and his hemoglobin was low at 6.9 and the patient was given a unit of packed RBC. The patient has no signs of any GI bleed at this point in time. BUN is at 22 with a creatinine of 0.6. Sodium is at 135 with a potassium level of 3.7. He is tolerating diet. No nausea or emesis. He is bedridden. His COPD is currently inactive and stable and the patient on bronchodilators and prednisone burst taper. Objective - Vital Signs Vital signs: Vital Signs Temp 98.1 F 05/21/23 12:00 Pulse 96 05/21/23 12:09 Resp 18 05/21/23 12:00 BP 114/60 05/21/23 12:00 Pulse Ox 95 05/21/23 12:00 FiO2 Intake & Output 05/20/23 05/21/23 05/21/23 18:59 06:59 18:59 Intake Total 240 0 Output Total 1575 1300 900 Balance -5098 -1300 -900 Weight 87 kg Intake: Oral 240 0 Output: Urine 1575 1300 900 Other: Voiding Method Indwelling Catheter Indwelling Catheter Indwelling Catheter # Bowel Movements 2 - Exam No acute distress, oriented 3. No respiratory distress. No audible wheezing and use of accessory muscles or conversational dyspnea. HEENT examination is grossly unremarkable. Mucous membranes are moist. No oral lesions. Neck supple. Full range of motion. No adenopathy thyromegaly or neck vein distention. Cardiovascular examination reveals regular rhythm rate. S1-S2 normal. No S3 or S4. No discernible murmur noted. Heart sounds are distant. Lungs reveal mild scattered rhonchi. Diminished breath sounds at the bases. 3 L saturation is 94%. Breath sounds are equal bilaterally. Abdomen soft bowel sounds are heard. No masses or tenderness. Extremities are intact. No cyanosis clubbing or edema. Skin is without rash or lesion. Neurologic examination is brief but nonfocal. - Labs CBC & Chem 7: 05/18/23 09:57 05/21/23 07:00 Labs: Abnormal Lab Results - Last 24 Hours (Table) 05/21/23 Range/Units 07:00 Sodium 135 L (137-145) mmol/L Chloride 95 L (98-107) mmol/L Carbon Dioxide 31 H (22-30) mmol/L BUN 22 H (9-20) mg/dL Creatinine 0.64 L (0.66-1.25) mg/dL Glucose 144 H (74-99) mg/dL Calcium 7.5 L (8.4-10.2) mg/dL Microbiology - Last 24 Hours (Table) 05/19/23 01:55 Gram Stain - Final Sputum Sputum Culture - Final Assessment and Plan Plan: Acute hypoxemic respiratory failure secondary to recurrent bilateral pleural effusions. Last thoracentesis was 05/02/2023 on the left with 850 MLS removed. Cytology negative. Ultrasound today reveals a small recurrent pocket of 5.3 cm on the left and a 3.2 cm pocket on the right. Hemoptysis, nonspecific, could be related to upper airway source of bleeding versus lower airway. The patient and cognition without liquids. The patient COPD is of hemoptysis and currently is symptoms of inactive and stable. History of recurrent right-sided pleural effusion, most recent thoracentesis done on 03/25/2022. Negative for cytologically malignant cells. There were destructive left sided rib lesions. Acute on chronic anemia, no obvious evidence of acute blood loss presenting hemoglobin 6.9. Received 1 unit packed red blood cells. Hemoglobin is stable for now and there is no source of bleeding Metastatic prostate cancer with extensive skeletal disease involvement with metastases. PET scan from 04/28/2023 revealed progression of disease with innumerable metastatic foci throughout every bone visualized with large pelvic mass and retroperitoneal lymphadenopathy. Pathologic fracture involving the right greater trochanter fracture/subacute. Chronic back pain. History of squamous cell lung cancer with previous chemo/radiation, intolerant of immunotherapy. Chronic obstructive pulmonary disease, stable. Coronary artery disease with previous stent placement. Hyperlipidemia. Benign essential hypertension. Peripheral vascular occlusive disease.. History DVT. Former smoker. Plan: Obtain a noncontrast CAT scan of the chest We'll reevaluate the pulmonary condition including the pleural effusion by a noncontrast CAT scan Occupation stable at 3 L Continue bronchodilators and steroids Prednisone burst taper Continue anticoagulation with Eliquis for now Pain control We'll continue to follow
[2023-05-21] MEDS: ONDANSETRON ODT 8 MG TAB.RAPDIS PO PRN (17:34)
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
[2023-05-21] MEDS: oxyCODONE-APAP 10-325MG 1 EACH TAB PO PRN (20:05)
[2023-05-21] MEDS: ALPRAZolam 0.25 MG TAB PO PRN (23:58)
[2023-05-22] MEDS: IPRATROPIUM-ALBUTEROL 3 ML NEB INHALATION SCH ×3 (03:25→11:54)
[2023-05-22 04:05] VITALS: TEMP 98
[2023-05-22] MEDS: ONDANSETRON ODT 8 MG TAB.RAPDIS PO PRN (05:55)
[2023-05-22] MEDS: oxyCODONE-APAP 10-325MG 1 EACH TAB PO PRN (05:59)
[2023-05-22] MEDS: CALCIUM CARB-VIT D 500 MG-5 MCG TAB PO SCH (06:40)
[2023-05-22] MEDS: carvediloL 6.25 MG TAB PO SCH (06:40)
--- NOTE | 2023-05-22 08:04 | CT ---
EXAMINATION TYPE: CT chest wo con CT DLP: 429. mGycm, Automated exposure control for dose reduction was used. DATE OF EXAM: 05/22/2023 12:51 AM COMPARISON: Pet/CT 04/25/2023. 01/30/1823. CLINICAL INDICATION:Male, 72 years old with history of hemoptysis; [facility], TECHNIQUE: Multiple axial images were obtained through the chest. Sagittal and coronal reformats were created for review. Contrast used: mL of (None if empty) Oral contrast used: (None if empty) FINDINGS: LUNGS/ PLEURA: Small left trace right pleural effusion. There is atelectasis changes along the areas of pleural effusion. Some streaky atelectasis in the right middle lobe with some bronchiectasis is pr esent. AIRWAY: Bronchiectasis within the right middle lobe. HEART: There are is enlarged for size. There is moderate coronary artery calcifications. MEDIASTINUM: No gross evidence of adenopathy. Mediastinum VASCULATURE: No aortic aneurysm. Atherosclerosis of the arterial vasculature. MUSCULOSKELETAL: No acute osseous abnormalities. Sclerotic lesions are seen in prior PET/CT. Multilev el degeneration changes throughout the spine. Left rib areas of cortical erosion and expansion at mul tiple levels including ribs 5/7/8/10. SOFT TISSUES/LYMPH NODES: Unremarkable. LOWER NECK: No significant findings. UPPER ABDOMEN: Lesions in the liver less well appreciated compared to prior PET/CT. IMPRESSION: 1. Cardiomegaly with bilateral pleural effusions correlate for component of congestive heart failure . 2. Right middle lobe bronchiectasis and consolidation changes around the hilum felt to relate to chr onic scarring given lack of FDG activity 04/25/2023. Underlying infection is likely also given lack o f FDG activity. 3. Scattered osseous metastatic disease as seen on prior PET/CT.
[2023-05-22 08:50] VITALS: RESP 19
[2023-05-22] MEDS: ATORVASTATIN 20 MG TAB PO SCH (08:51)
[2023-05-22] MEDS: MULTIVITAMINS, THERA 1 EACH TAB PO SCH (08:51)
[2023-05-22] MEDS: FUROSEMIDE 40 MG TAB PO SCH (08:51)
[2023-05-22] MEDS: THIAMINE 100 MG TAB PO SCH (08:51)
[2023-05-22] MEDS: APIXABAN 5 MG TAB PO SCH (08:51)
[2023-05-22] MEDS: PANTOPRAZOLE 40 MG TABLET PO SCH (08:51)
[2023-05-22] MEDS: TAMSULOSIN 0.4 MG CAP.ER.24H PO SCH (08:51)
[2023-05-22] MEDS: predniSONE 20 MG TAB PO SCH (08:51)
[2023-05-22] MEDS: guaiFENesin-DM 600/30MG 1 EACH TAB.ER.12H PO SCH (08:52)
[2023-05-22] MEDS: FORMOTEROL FUMARATE 20 MCG/2 ML NEBU INHALATION SCH (08:56)
[2023-05-22] MEDS: BUDESONIDE 1 MG/2 ML NEBU INHALATION SCH (08:56)
[2023-05-22] MEDS: HYDROmorphone 2 MG TAB PO PRN (10:46)
[2023-05-22] MEDS: BICALUTAMIDE 50 MG TAB PO SCH (10:46)
[2023-05-22 11:52] VITALS: BP 134/76
[2023-05-22 12:16] VITALS: PULSE 80
--- NOTE | 2023-05-22 12:52 | P.PN ---
Subjective Progress Note Date: 05/22/23 This is a very pleasant 72-year-old male patient with a known history of chronic obstructive pulmonary disease, congestive heart failure, hypertension, peripheral vascular disease, coronary artery disease with previous stent placement, chronic back pain, former smoker. He is also known to have a history of squamous cell lung cancer diagnosed March 2020 with previous chemotherapy and radiation treatments. He was trialed on immunotherapy however was discontinued due to poor tolerance. PET scan from 04/28/2023 revealed progression of disease with innumerable metastatic foci throughout every bone visualized with large pelvic mass and retroperitoneal lymphadenopathy. He has had recurrent bilateral pleural effusions and had undergone previous thoracentesis. He was recently hospitalized earlier this month and had undergone a left-sided thoracentesis on 05/02/2023 with 850 ML's of fluid rosa maria iram. Cytology was negative for malignancy. He presented here to the emergency room again yesterday complaints of increasing shortness of breath, cough and congestion. Chest x-ray again shows cardiomegaly, pulmonary vascular congestion and bilateral pleural effusions. Previous echocardiogram had revealed mildly impaired left ventricular systolic function with ejection fraction 45-50%. Ultrasound of the chest revealed minimal pleural effusion 5.4 cm on the left and 3.2 cm on the right. White count 4.2. Initial hemoglobin was 6.9. He received 1 unit of packed red blood cells overnight. Current hemoglobin 7.7. Platelets 200,000. D-dimer 22.37. Sodium 136. Potassium 3.8. Bicarb 30. BUN 20. Creatinine 0.68. Glucose 108. ProBNP 1970. He's been initiated on Lasix 40 mg IV every 12 hours. He is seen today in consultation in the emergency department. He is awake and alert in no acute distress. He is maintaining O2 saturations in the 90s on 3 L/m per nasal cannula. He is dyspneic with conversation. Dyspneic with minimal exertion. He has significant cough and congestion and white foamy with occasional blood-tinged sputum. He has been anticoagulated with Eliquis. Progress note dated 05/19/2023. 72-year-old male unknown to us, with history of lung cancer, and metastatic prostate cancer. The patient was seen in consultation yesterday. Please see the note above. The patient has had recurrent bilateral pleural effusions, with thoracentesis on the right, 2, and thoracentesis on the left, 1. Currently, the patient's on 2 L of oxygen. He is not receiving any IV fluids. He does have small bilateral effusions, left greater than right. At the current time, t horacentesis is not contemplated. No new labs today. Labs from May 17 and are reviewed. All x-rays are reviewed. Progress note dated 05/20/2023. 72-year-old male seen today in room 357. He has a history of lung cancer, and widely metastatic prostate cancer. The patient is currently on 3 L of oxygen. He is not receiving any IV fluids. He does complain of ongoing chest congestion. Labs today include a sodium 134, potassium 4.1, chlorides 95, CO2 28, BUN 23, and creatinine 0.58. On today's evaluation of 05/21/2020, the patient has stable without any episodes of hemoptysis. The patient is maintained on anticoagulation with Eliquis 5 mg by mouth twice a day. As mentioned earlier, the patient has history of non- small cell lung cancer and the patient also has diffuse metastatic prostate cancer with extensive skeletal metastases. He also has bilateral pleural effusion and a left-sided pleural effusion was drained back in 05/02/2023 and was negative for malignancy. During this current admission, the patient drop in hemoglobin and his hemoglobin was low at 6.9 and the patient was given a unit of packed RBC. The patient has no signs of any GI bleed at this point in time. BUN is at 22 with a creatinine of 0.6. Sodium is at 135 with a potassium level of 3.7. He is tolerating diet. No nausea or emesis. He is bedridden. His COPD is currently inactive and stable and the patient on bronchodilators and prednisone burst taper. On today's evaluation of 05/22/2023, the patient is being seen for a follow-up. No further episodes of hemoptysis. A CAT scan of the chest was done yesterday and it showed some chronic right midlung bronchitic changes probably related to previous radiation therapy and there is some residual scarring. No pulmonary nodules. His cardiomegaly and there is a small left-sided pleural effusion. The patient is otherwise doing well. He is on 3 L of oxygen by nasal cannula. He remains on anticoagulation utilizing Eliquis. He has history of non-small cell lung cancer. He also has history of metastatic prostate cancer with extensive skeletal metastases. The patient was given a unit of packed RBC for hemoglobin of 6.9 and the patient's hemoglobin is up to 7.7. Renal function stable. Electrolytes are all stable. Objective - Vital Signs Vital signs: Vital Signs Temp 98.0 F 05/22/23 03:58 Pulse 84 05/22/23 09:23 Resp 19 05/22/23 08:45 BP 119/73 05/22/23 08:45 Pulse Ox 91 L 05/22/23 08:45 FiO2 Intake & Output 05/21/23 05/22/23 05/22/23 18:59 06:59 18:59 Intake Total 540 Output Total 1400 1250 400 Balance -1400 -710 -400 Intake: Oral 540 Output: Urine 1400 1250 400 Other: Voiding Method Indwelling Catheter Indwelling Catheter Indwelling Catheter # Bowel Movements 2 - Exam No acute distress, oriented 3. No respiratory distress. No audible wheezing and use of accessory muscles or conversational dyspnea. HEENT examination is grossly unremarkable. Mucous membranes are moist. No oral lesions. Neck supple. Full range of motion. No adenopathy thyromegaly or neck vein distention. Cardiovascular examination reveals regular rhythm rate. S1-S2 normal. No S3 or S4. No discernible murmur noted. Heart sounds are distant. Lungs reveal mild scattered rhonchi. Diminished breath sounds at the bases. 3 L saturation is 94%. Breath sounds are equal bilaterally. Abdomen soft bowel sounds are heard. No masses or tenderness. Extremities are intact. No cyanosis clubbing or edema. Skin is without rash or lesion. Neurologic examination is brief but nonfocal. - Labs CBC & Chem 7: 05/18/23 09:57 05/21/23 07:00 Labs: Microbiology - Last 24 Hours (Table) 05/19/23 01:55 Gram Stain - Final Sputum Sputum Culture - Final Assessment and Plan Plan: Acute hypoxemic respiratory failure secondary to recurrent bilateral pleural effusions. Last thoracentesis was 05/02/2023 on the left with 850 MLS removed. Cytology negative. Ultrasound today reveals a small recurrent pocket of 5.3 cm on the left and a 3.2 cm pocket on the right. The CAT scan of the chest was reviewed. There is a small left-sided pleural effusion. No need for thoracentesis at this point in time. Hemoptysis, nonspecific, could be related to upper airway source of bleeding versus lower airway. The patient and cognition without liquids. The patient COPD is of hemoptysis and currently is symptoms of inactive and stable. CAT scan of the chest was done and the patient was found to have some chronic fibrotic changes and bronchiectatic changes in the right midlung. No pulmonary nodules. No other source of bleeding at this point in time. History of recurrent right-sided pleural effusion, most recent thoracentesis done on 03/25/2022. Negative for cytologically malignant cells. There were destructive left sided rib lesions. Acute on chronic anemia, no obvious evidence of acute blood loss presenting hemoglobin 6.9. Received 1 unit packed red blood cells. Hemoglobin is stable for now and there is no source of bleeding Metastatic prostate cancer with extensive skeletal disease involvement with metastases. PET scan from 04/28/2023 revealed progression of disease with innumerable metastatic foci throughout every bone visualized with large pelvic mass and retroperitoneal lymphadenopathy. Pathologic fracture involving the right greater trochanter fracture/subacute. Chronic back pain. History of squamous cell lung cancer with previous chemo/radiation, intolerant of immunotherapy. Chronic obstructive pulmonary disease, stable. Coronary artery disease with previous stent placement. Hyperlipidemia. Benign essential hypertension. Peripheral vascular occlusive disease.. History DVT. Former smoker. Acute on top of chronic anemia the patient was transfused with units of packed RBC Plan: CAT scan of the chest was reviewed. No further interventions Continue the anticoagulation Watch for any signs of hemoptysis Humidify oxygen source Oxygenation stable at 3 L Continue bronchodilators and steroids Prednisone burst taper Continue anticoagulation with Eliquis for now Pain control We'll continue to follow
[2023-05-22 13:05] VITALS: BMI 27.5
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
== END 2023-05-22 13:50 | disposition home health service (06) | DRG 291 ==
LOC: EC 19:29 → 3SCARD 21:28 → 3NCARDOBS 05-18 02:20 → 3SCARD 05-18 02:21
PROVIDERS: ADMIT Hospitalist; ATTEND Hospitalist
PROC: 30233N1 Transfusion of Nonautologous Red Blood Cells into Peripheral Vein, Percutaneous Approach (ICD-10-PCS; principal; 2023-05-17)
DX: I11.0 Hypertensive heart disease with heart failure (principal); I50.33 Acute on chronic diastolic (congestive) heart failure; J96.01 Acute respiratory failure with hypoxia; R04.2 Hemoptysis; C79.51 Secondary malignant neoplasm of bone; M84.451A Pathological fracture, right femur, initial encounter for fracture; J44.1 Chronic obstructive pulmonary disease with (acute) exacerbation; I82.502 Chronic embolism and thrombosis of unspecified deep veins of left lower extremity; C34.90 Malignant neoplasm of unspecified part of unspecified bronchus or lung; I25.10 Atherosclerotic heart disease of native coronary artery without angina pectoris; E78.5 Hyperlipidemia, unspecified; I73.9 Peripheral vascular disease, unspecified; D50.0 Iron deficiency anemia secondary to blood loss (chronic); C61 Malignant neoplasm of prostate; I48.91 Unspecified atrial fibrillation; G89.4 Chronic pain syndrome; F41.9 Anxiety disorder, unspecified; R53.81 Other malaise; M79.605 Pain in left leg; N32.0 Bladder-neck obstruction; Z95.5 Presence of coronary angioplasty implant and graft; Z92.3 Personal history of irradiation; Z92.21 Personal history of antineoplastic chemotherapy; Z87.891 Personal history of nicotine dependence; Z79.899 Other long term (current) drug therapy; Z79.82 Long term (current) use of aspirin; Z79.01 Long term (current) use of anticoagulants; Z74.01 Bed confinement status; Z99.3 Dependence on wheelchair; I25.2 Old myocardial infarction; Z86.14 Personal history of Methicillin resistant Staphylococcus aureus infection; V29.99XS Rider (driver) (passenger) of other motorcycle injured in unspecified traffic accident, sequela
CPT/HCPCS: 36415; 71046; 71250; 76604; 80048; 80053; 83735; 83880; 84484; 85025; 85379; 85610; 85730; 86850; 86900; 86901; 86920; 87070; 87205; 93005; 93306; 94640; 94667; 94760; 96374; 96375; 96376; 99285

== ENCOUNTER 2023-06-24 13:16 | Inpatient (IN) | payer MEDICARE, OTHER ==
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
[2023-06-24] MEDS: HYDROmorphone 0.5 MG/0.5 ML SYRINGE IVP STA (14:34)
[2023-06-24 14:45] LABS: Anisocytosis Slight; Basophils % (A) 0 %; Eosinophils % (A) 1 %; HCT 25.1 % (39.0-53.0); HGB 8.1 gm/dL (13.0-17.5); Hypochromasia Moderate; Lymphocytes # (A) 0.3 k/uL (1.0-4.8); Lymphocytes % (A) 5 %; MCH 29.6 pg (25.0-35.0); MCHC 32.2 g/dL (31.0-37.0); Mean Platelet Volume 7.7; Monocytes # (A) 0.4 k/uL (0-1.0); Monocytes % (A) 6 %; Neutrophils # (A) 5.2 k/uL (1.3-7.7); Neutrophils % (A) 86 %; Platelet Count 192 k/uL (150-450); Poikilocytosis Moderate; RBC 2.73 m/uL (4.30-5.90); RDW 17.5 % (11.5-15.5)
[2023-06-24 15:08] LABS: ALT 12 U/L (4-49); AST 40 U/L (17-59); African American GFR (CKD) >90 (>60 ml/min/1.73 sqM); Albumin 2.8 g/dL (3.5-5.0); Anion Gap 4 mmol/L; Blood Urea Nitrogen 16 mg/dL (9-20); Calcium 7.7 mg/dL (8.4-10.2); Carbon Dioxide 32 mmol/L (22-30); Chloride 100 mmol/L (98-107); Glucose 112 mg/dL (74-99); Non-African American GFR(CKD) >90 (>60 ml/min/1.73 sqM); Potassium 3.7 mmol/L (3.5-5.1); Sodium 136 mmol/L (137-145); Total Bilirubin 0.4 mg/dL (0.2-1.3); Total Protein 5.3 g/dL (6.3-8.2)
[2023-06-24 15:09] LABS: Alkaline Phosphatase 666 U/L (38-126)
[2023-06-24 15:15] LABS: NT-Pro-B-Type Natriuretic Pept 1610 pg/mL
[2023-06-24 15:34] LABS: Partial Thromboplastin Time 26.5 sec (22.0-30.0); Prothrombin Time 10.9 sec (10.0-12.5)
--- NOTE | 2023-06-24 16:02 | XR ---
EXAMINATION TYPE: XR chest 2V DATE OF EXAM: 06/24/2023 COMPARISON: 05/17/2023 HISTORY: 73-year-old male shortness of breath, difficulty breathing TECHNIQUE: AP and lateral views FINDINGS: Heart moderately enlarged. Unwinding moderate bilateral pleural effusions, slightly increased. Inters titial prominence persists. Chronic full-thickness rotator cuff re-tear right shoulder. IMPRESSION: Slight interval increase in the moderate bilateral pleural effusions with adjacent atelectasis and/or consolidation. Background mild pulmonary vascular congestion.
--- NOTE | 2023-06-24 16:06 | CT ---
EXAMINATION TYPE: CT abdomen pelvis wo con DATE OF EXAM: 06/24/2023 COMPARISON: 04/25/2023, PET scan INDICATION: back pain, metastatic ca DLP: 670.4 mGycm, Automated exposure control for dose reduction was used. CONTRAST: 0 mL of Isovue 300. Study performed without Oral Contrast TECHNIQUE: Axial images were obtained from above the diaphragm to the pubic rami in the axial plane a t 5 mm thick sections. Reconstructed images are reviewed on the computer in the coronal plane. FINDINGS: Limited CT sections are obtained the lung bases. There is a small to moderate left pleural effusion. Consolidation or mass extends from the infrahilar region to the right middle lobe and right lower lo bes. Some compressive atelectasis likely present at the left base. Small right pleural effusion is pr esent.. Coronary artery calcification is present. CT ABDOMEN: Liver: Normal Spleen: Normal Pancreas: Normal Adrenal glands: The adrenal glands are normal. Gallbladder: Normal Kidneys: No masses are evident. No hydronephrosis is present. No cysts are present. Vascular calci fication appears to be within the bilateral kidneys. Aorta: Vascular calcification is within the aorta. Stent in the left iliac region is noted. Inferior vena cava: Normal. CT PELVIS: The mass above the left hemipelvis and urinary bladder is estimated to measure 5.7 x 4.7 c m previously was abnormal on the PET scan. Loops of bowel within the abdomen and pelvis are normal. The study is without oral contrast limit ing bowel evaluation. Appendix: Normal as visualized. Urinary bladder: Decompressed with a Benjamin catheter. Genitourinary structures: Prostate is poorly visualized. Osseous structures: Sclerosis through the lumbar spine. Lytic lesion may be within the T11 level. The re is diffuse sclerotic and lytic areas throughout the remaining vertebral bodies as well as the pelv is. IMPRESSION: 1. Multiple osseous metastasis. 2. Mass within the left hemipelvis correlates with abnormal PET scan. Bilateral pleural effusions
[2023-06-24] MEDS: methylPREDNISolone SOD SUCCI 125 MG/2 ML VIAL IV STA (17:05)
[2023-06-24] MEDS: IPRATROPIUM-ALBUTEROL 3 ML NEB INHALATION STA (17:26)
[2023-06-24] MEDS ORDERED: NALOXONE 0.4 MG/ML 1 ML VIAL IV PRN (17:46)
[2023-06-24] MEDS: HYDROmorphone 1 MG/ML 1 ML SYRINGE IVP STA (17:47)
[2023-06-24] MEDS ORDERED: HYDROmorphone 2 MG TAB PO PRN (20:22)
[2023-06-24] MEDS ORDERED: ONDANSETRON 4 MG TAB PO PRN (20:22)
[2023-06-24] MEDS: ALPRAZolam 0.25 MG TAB PO PRN (20:45)
[2023-06-24] MEDS: MORPHINE SULFATE 4 MG/ML SYRINGE IV PRN (20:46)
[2023-06-24] MEDS ORDERED: carvediloL 6.25 MG TAB PO SCH (21:00)
[2023-06-24] MEDS: HYDROmorphone 0.5 MG/0.5 ML SYRINGE IVP PRN (22:42)
[2023-06-24] MEDS: APIXABAN 5 MG TAB PO SCH (22:43)
[2023-06-24] MEDS: FAMOTIDINE 20 MG TAB PO SCH (22:43)
[2023-06-24] MEDS: METOPROLOL TARTRATE 25 MG TAB PO SCH (22:43)
[2023-06-24] MEDS: PANTOPRAZOLE 40 MG TABLET PO SCH (22:43)
[2023-06-24] MEDS: PSYLLIUM HUSK 100% 6 GM PACKET PO SCH (22:44)
[2023-06-24] MEDS: METHADONE 10 MG TAB PO PRN (22:46)
[2023-06-24] MEDS: BUMETANIDE 1 MG TAB PO SCH (22:55)
[2023-06-24] MEDS: methocarbamoL 500 MG TAB PO PRN (22:55)
[2023-06-25] MEDS: IPRATROPIUM-ALBUTEROL 3 ML NEB INHALATION SCH (01:55)
[2023-06-25] MEDS: ZINC OXIDE PASTE (Z-GUARD) 1 APPLIC TOPICAL PRN (02:41)
[2023-06-25] MEDS: ONDANSETRON ODT 8 MG TAB.RAPDIS PO PRN (03:56)
[2023-06-25] MEDS: Enzalutamide [Xtandi] 80 MG Tablet PO SCH (07:37)
[2023-06-25] MEDS: CALCIUM CARB-VIT D 500 MG-5 MCG TAB PO SCH (07:52)
[2023-06-25] MEDS: THIAMINE 100 MG TAB PO SCH (07:52)
[2023-06-25] MEDS: ATORVASTATIN 20 MG TAB PO SCH (07:52)
[2023-06-25] MEDS: SERTRALINE 50 MG TAB PO SCH (07:52)
[2023-06-25] MEDS: TAMSULOSIN 0.4 MG CAP.ER.24H PO SCH (07:52)
[2023-06-25] MEDS: MULTIVITAMINS, THERA 1 EACH TAB PO SCH (07:53)
[2023-06-25] MEDS: BICALUTAMIDE 50 MG TAB PO SCH (07:53)
[2023-06-25] MEDS: ASPIRIN 81 MG PO SCH (07:53)
[2023-06-25] MEDS ORDERED: FUROSEMIDE 40 MG TAB PO SCH (09:00)
[2023-06-25] MEDS: FORMOTEROL FUMARATE 20 MCG/2 ML NEBU INHALATION SCH (09:45)
[2023-06-25] MEDS: METHADONE 10 MG TAB PO SCH (11:06)
[2023-06-25] MEDS: methylPREDNISolone SOD SUCCI 40 MG/ML 1 ML VIAL IV SCH (11:07)
[2023-06-25] MEDS: MORPHINE SULFATE ER 15 MG TABLET PO SCH (11:46)
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
[2023-06-25] MEDS: DOCUSATE 100 MG CAP PO SCH (21:35)
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
[2023-06-26] MEDS: BUDESONIDE 1 MG/2 ML NEBU INHALATION SCH (07:14)
--- NOTE | 2023-06-26 09:08 | US ---
EXAMINATION TYPE: US chest DATE OF EXAM: 06/25/2023 COMPARISON: Xray: 06/24/23 CLINICAL INDICATION: Male, 73 years old with history of Left-sided marking for thoracentesis; marking TECHNIQUE: Targeted ultrasound of the posterior lower bilateral hemithoraces EXAM MEASUREMENTS: Right Pleural Effusion pocket size: 3.9 cm Right skin surface to fluid distance: 3.9 cm Left Pleural Effusion pocket size: 5.7 cm Left skin surface to fluid distance: 2.6 cm Right side marked for possible thoracentesis outside the dept. Left side marked for possible thoracentesis outside the dept. Pulmonologists are able to review the images in the patient?s EMR. IMPRESSIONS: [id number] left and small right pleural effusions. Markings performed.
[2023-06-26] MEDS: LIDOCAINE 4% PATCH TOPICAL SCH (11:56)
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
[2023-06-26] MEDS: HYDROmorphone 1 MG/ML 1 ML SYRINGE IVP PRN (15:38)
--- NOTE | 2023-06-26 15:38 | P.PAINPG ---
Objective - Vital Signs Vital signs: Vital Signs Temp 98 F 06/26/23 07:19 Pulse 96 06/26/23 12:37 Resp 16 06/26/23 07:19 BP 123/71 06/26/23 07:19 Pulse Ox 100 06/26/23 07:19 FiO2 Intake & Output 06/25/23 06/26/23 06/26/23 18:59 06:59 18:59 Output Total 750 300 Balance -750 -300 Output: Urine 750 300 Other: Voiding Method Indwelling Catheter Indwelling Catheter Indwelling Catheter - Labs CBC & Chem 7: 06/24/23 14:00 06/24/23 14:00 PQRS Measure Charge Sheet Comment: HISTORY OF PRESENT ILLNESS: A 73 yr old inpatient male as a referral from Dr Gore presents today w severe LBP s/p fall secondary to DDD, spondylosis and facet arthropathy without myelopathy for evaluation. He is undergoing radiation therapy for Lung CA w metastasis to the bones. He feels immense pain when undergoing radiation and needs medications prior to. He received Dilaudid 0.5mg IVP within an hour of starting radiation therapy this morning but it was ineffective in treating pain. At home, pain is alleviated by medications (Percocet 10/325mg #120, Hydromorphone 8mg #180) per MAPS. He was given Methadone 10mg #60 in Mar 2023 but has not filled it since. PMH: OA, Lung CA w bony mets, Angina, CHF, COPD, HTN, [place] (2015), Anxiety PSH: Heart Catheterization With Stent x 2 (2019), Hernia Repair (2019), L Femur ORIF (), BL RCT Repair, LLE Bypass SH: Former tobacco user, Hx of ETOH abuse, No illicit drug use. and lives w spouse FH: Fa- Lung CA. Bro- Lung CA All: See list Meds: See list REVIEW OF ORGAN SYSTEMS: CONSTITUTIONAL: No fevers or chills. No recent weight loss. NEUROLOGICAL: + numbness and tingling along the distal extremities. No seizure disorders or headaches. MUSCULOSKELETAL: + pain PSYCHIATRIC: Denies current depression or suicidal thoughts. Physical Examinations : Constitutional : Cooperative , not in acute distress . Neurologic : Cranial nerve II to XII intact. No focal neur ological deficits. Psychiatric : alert & oriented x 3. Matching mood & appropriate affect. Judgment & insight intact. Musculoskeletal : Cervical Spine Motor strength in the deltoid and bic eps: Normal right side. Normal Left side Motor strength biceps and the wrist extensors: Normal right side . Normal left side Motor strength in the triceps muscle: Normal right side. Normal left side Deep tendon reflexes: Normal at the biceps. Normal at Brachioradialis. Normal at triceps Vertebral body tenderness to deep palp ation over Cervical facet loading test: positive bilaterally Spurling test: positive bilaterally Neck distraction test: positive bilaterally Phil sign: positive bilaterally Lumbar spine Motor strength lower extremities ,thigh and legs 5/5 Right side , 5/5 Left side Deep tendon reflexes : Normal Knee Jerk. Normal Ankle Jerk Vertebral body tenderness over Nur Test positive Lumbar facet Loading Test: positive Right / positive Left Range of motion of the lumbar spine Flexion 30 degrees, extension 10 degrees Straight Leg Raise test: Left/ Right positive at degrees Brenda test: positive right / positive left. Severe tenderness over the Sacroiliac joint on the Right / Left sides Gaenslen test: positive bilaterally Seated flexion test: positive bilaterally. Sacral spine : Severe tenderness over the Sacroiliac joint: right side / left side Range of motion: Flexion of the lumbar spine <60 degrees Range of motion: Extension of the lumbar spine <20 degrees Gaenslen's Test positive Brenda test: positive right side / left side Thigh Thrust Test Sacral Thrust Test Assessment/ Plan : Radiation Therapy d/t Lung CA w bony meta Dose adjustment of Dilaudid 1mg IVP q4h prn. Instructed nurse to give to pt 1 hr prior to his radiation treatments w his next one around 10 am tomorrow. Methado ne has not been filled since Mar 2023 so will not fill at this time but determine how pt is tolerating Dilaudid 1mg before additional changes are made. All questions answered. I have spent greater than 30 minutes on patient care today. Dr Rodriguez was available by phone for the evaluation of this patient. The time was used to review the medical records including relevant urine studies and Prescription history (MAPs), review of the available imaging, evaluation and examination of the patient, coordination of care with the medical staff and if applicable referring physicians, as well as creation of the medical record - Pain Location Back Non-Pharmacological Interventions: Darkened Room Pharmacological Interventions: Medication PQRS Narrative: Smoking Status Former smoker Blood Pressure [Right Arm] 123/71 Blood Pressure 101/57 Pain Intensity [Back] 7 Pain Intensity 10 Pain Scale Used Numeric (1 - 10) Scale Used Numeric (1 - 10) Home Medications: Ambulatory Orders Ipratropium-Albuterol Nebulize [Duoneb 0.5 mg-3 mg/3 ml Soln] 3 ml INHALATION RT-Q6H 07/11/21 Atorvastatin [Lipitor] 20 mg PO DAILY 03/24/22 predniSONE 5 mg PO BID 02/08/23 Apixaban [Eliquis] 5 mg PO BID 03/10/23 Formoterol Fumarate [Perforomist] 20 mcg INHALATION RT-BID 03/10/23 Methadone HCl 10 mg PO BID PRN 03/10/23 Naloxone HCl [Narcan] 4 mg NASAL DIRECTED PRN 03/10/23 Thiamine [Vitamin B-1] 100 mg PO DAILY 03/10/23 methocarbamoL [Robaxin] 1,000 mg PO QID PRN 03/10/23 Aspirin 81 mg PO DAILY tab 03/28/23 Bicalutamide [Casodex] 50 mg PO DAILY #30 tab 03/28/23 ALPRAZolam [Xanax] 0.25 mg PO BID PRN 04/11/23 HYDROmorphone HCL 8 mg PO Q4H PRN 04/11/23 Tamsulosin [Flomax] 0.4 mg PO DAILY 04/11/23 ondansetron HCL [Zofran] 8 mg PO DAILY PRN 04/11/23 oxyCODONE-APAP 10-325MG [Percocet 10-325 mg] 1 tab PO Q6H PRN 04/11/23 Pantoprazole [Protonix] 40 mg PO BID #60 tab 04/13/23 carvediloL [Coreg] 6.25 mg PO BID #60 tablet 04/13/23 Famotidine [Pepcid] 20 mg PO BID 05/02/23 Multivit-Mins/Iron/Folic/Lycop [Centrum Men's Tablet] 1 tab PO DAILY 05/02/23 Ondansetron Odt [Zofran ODT] 8 mg PO BID PRN 05/02/23 Furosemide [Lasix] 40 mg PO BID@0900,1600 #60 tab 05/22/23 Psyllium Husk 100% [Metamucil Packet] 6 gm PO BID #60 packet 05/22/23 Bumetanide [Bumex] 1 mg PO BID 06/24/23 Calcium Carb-Vit D 500Mg-5Mcg [Oscal 500+D 5 Mcg (200 Iu)] 1 tab PO BID-W/MEALS 06/24/23 Enzalutamide [Xtandi] 160 mg PO DAILY 06/24/23 Metoprolol Tartrate [Lopressor] 25 mg PO BID 06/24/23 Sertraline [Zoloft] 50 mg PO DAILY 06/24/23 Controlled Substance Measures - Controlled Substance Measures Is patient prescribed a controlled substance at discharge?: No
[2023-06-26] MEDS: ZOLEDRONIC ACID 4 MG in SODIUM CHLORIDE 0.9% 100 ML IV ONE (15:39)
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
--- NOTE | 2023-06-26 20:05 | P.PN ---
Subjective Progress Note Date: 06/26/23 No acute events. Patient reporting persisting lower back pain. Patient scheduled for simulation today with radiation oncology. Objective - Vital Signs Vital signs: Vital Signs Temp 98.2 F 06/26/23 13:07 Pulse 70 06/26/23 13:07 Resp 16 06/26/23 13:07 BP 129/75 06/26/23 13:07 Pulse Ox 97 06/26/23 13:07 FiO2 Intake & Output 06/25/23 06/26/23 06/26/23 18:59 06:59 18:59 Output Total 750 300 Balance -750 -300 Output: Urine 750 300 Other: Voiding Method Indwelling Catheter Indwelling Catheter Indwelling Catheter - Constitutional General appearance: Present: average body habitus, no acute distress - EENT Eyes: Present: anicteric sclerae, EOMI ENT: Present: hearing grossly normal - Respiratory Details: breathing even and unlabored - Cardiovascular Details: well perfused - Integumentary Integumentary: Absent: cyanotic - Musculoskeletal Musculoskeletal: Present: generalized weakness - Psychiatric Psychiatric: Present: A&O x's 3 - Labs CBC & Chem 7: 06/24/23 14:00 06/24/23 14:00 Assessment and Plan (1) Back pain Current Visit: Yes Status: Acute Priority: High Code(s): M54.9 - CHELSI SALGIA, UNSPECIFIED SNOMED Code(s): 570006462 (2) Dyspnea Current Visit: Yes Status: Acute Priority: High Code(s): R06.00 - DYSPNEA, UNSPECIFIED SNOMED Code(s): 579998508 (3) Metastatic cancer Current Visit: Yes Status: Acute Priority: High Code(s): C79.9 - SECONDARY MALIGNANT NEOPLASM OF UNSPECIFIED SITE SNOMED Code(s): 207775635 Plan: SOB -Chest x-ray showed slight interval increase in the moderate bilateral pleural effusions with adjacent atelectasis and/or consolidation. With background mild pulmonary vascular congestion. -Of note patient did receive left-sided thoracentesis on 05/02/23 with 850 mL removed. Cytology was negative for malignancy -Bumex, steroids ordered. Pulmonology consulted. Chest ultrasound obtained revealing right pleural effusion pocket measuring 3.9 cm and left pocket measuring 5.7 cm. Considering repeat thoracentesis, if plan is to proceed with procedure we will request repeat cytology Metastatic prostate cancer -Full history in HPI. Stage 4 metastatic disease with diffuse mona metastasis -Continues on casodex and zometa. Uncertain what medication he is receiving from urology. Will have to request records -As discussed in HPI, outpt f/u has been difficult due to multiple hospital admission and transportation issues. He also has yet to set f/u with care closer to home. At todays visit he is stating to hope to continue care with Dr. Ignacio. -It was discussed that he will need to be switched to a more specific regimen including ADT + ARB or ADT plus chemotherapy+/- ARB. We will need to ensure patient can f/u in clinic for treatments, follow ups, and labs. He states they are currently working on transportation. We would not recommend continuing to delay care and patient may need to f/u closer to home if f/u and transportation continues to be an issue delaying care -For now we will continue Casodex. Additional dose zometa ordered. Clinic f/u will be scheduled upon discharge Malignancy related pain -Progressing low back pain, despite use of home pain medications -Discussed case with rad onc, consult placed. Simulation scheduled for today. Planning for 5 fractions -IV pain medications ordered, continues on methadone BID without adequate pain control. Will consult pain management for further recommendations -Medications ordered to prevent narcotic induced constipation -Orthopedics consulted. Exos LSO brace ordered -With treatment of disease, hopefully that will help with some of the pain as well Doctor attests: I performed a history and physical examination of this patient, developed impression and plan of care. Discussed with dictator. I agree with dictators note, documented as a scribe.
[2023-06-26] MEDS: predniSONE 20 MG TAB PO SCH (20:06)
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
--- NOTE | 2023-06-27 13:28 | P.PN ---
Subjective Progress Note Date: 06/27/23 I am seeing this patient in consultation today June 26, 2023 for evaluation of the patient's dyspnea and bilateral pleural effusions. Patient is a 72-year-old male patient with a known history of chronic obstructive pulmonary disease, congestive heart failure, hypertension, peripheral vascular disease, coronary artery disease with previous stent placement, chronic back pain, former smoker. He follows with Dr. Paul in the pulmonary office. He is known to have a history of squamous cell lung cancer diagnosed March 2020 with previous chemotherapy and radiation treatments. He was trialed on immunotherapy however was discontinued due to poor tolerance. PET scan from 04/28/2023 revealed progr ession of disease with innumerable metastatic foci throughout every bone visualized with large pelvic mass and retroperitoneal lymphadenopathy. Patient reportedly had a bone biopsy at an outside facility, consistent with metastatic prostate cancer. He has had recurrent bilateral pleural effusions and had undergone previous thoracentesis. Patient was evaluated approximately 1 month ago for similar symptoms. Pleural effusions were not large enough for thoracentesis at that time. Most recent left-sided thoracentesis on 05/02/2023 with 850 ML's of fluid removed. Cytology was negative for malignancy. Fluid was a transudate that time. Previous echocardiogram January, had revealed mildly impaired left ventricular systolic function with ejection fraction 45- 50%. Patient returned to the emergency room on June 24 complaining mostly of lower back pain. He has reduced lower extremity strength and was mostly bedbound. He has a Benjamin catheter in place. He is reportedly scheduled to undergo palliative radiation therapy on his back. Once in the emergency room, he was also noted to be dyspneic. Denies any infectious symptoms such as fever, change in his chronic cough, hemoptysis. Denies sick contacts. Chest x-ray on arrival shows cardiomegaly, mild pulmonary vascular congestion, slightly increased moderate bilateral pleural effusions. CBC on arrival: WC count of 6, hemoglobin 8.1, hematocrit 25, platelets 192. BMP on arrival: Sodium 136, Tessman 3.7, chloride 100, serum bicarb 32, BUN 16, creatinine 0.58, glucose 112. NT proBNP was 1600. He is receiving Bumex twice a day. He is also receiving medications for possible COPD exacerbation. Does not seem symptomatic on my evaluation. He is currently sitting up in bed, on 3 L/min nasal cannula, in no acute distress. His primary complaint is back pain, which he is receiving methadone and as needed Dilaudid for. He is short of breath with exertion. Afebrile. Vitals are stable. The patient is seen today June 27, 2023 and follow-up on the regular medical floor. He is currently sitting up in bed. Awake and alert. His low back pain is somewhat better controlled. Still quite uncomfortable. He is maintaining O2 saturations in the 90s on 3 L/min per nasal cannula. His normal staying at 20 mL/h. Ultrasound of the chest did not reveal any significant amount of fluid to undergo thoracentesis safely. He has been evaluated by radiation oncology and the plan is to proceed with a CT simulation and possible single treatment tomorrow. He is also being followed by pain management. No new labs today. He is continued on DuoNeb ventilations, Pulmicort and performing scintillations, prednisone. Anticoagulated with Eliquis. Objective - Vital Signs Vital signs: Vital Signs Temp 98.4 F 06/27/23 07:27 Pulse 90 06/27/23 08:16 Resp 20 06/27/23 07:27 BP 127/71 06/27/23 07:27 Pulse Ox 95 06/27/23 07:27 FiO2 Intake & Output 06/26/23 06/27/23 06/27/23 18:59 06:59 18:59 Intake Total 100 Output Total 1000 Balance 100 -1000 Intake: Intake, IV Titration 100 Amount Zoledronic Acid 4 mg In 100 Sodium Chloride 0.9% 100 ml @ 210 mls/hr IV ONCE ONE Rx#:[id number] Output: Urine 1000 Other: Voiding Method Indwelling Catheter Indwelling Catheter Indwelling Catheter - Exam GENERAL EXAM: Alert, 73-year-old male, on 3 L nasal cannula, appears to be uncomfortable, states less pain than yesterday. HEAD: Normocephalic and atraumatic EYES: Normal reaction of pupils, equal size. NOSE: Clear with pink turbinates. THROAT: No erythema or exudates. NECK: No masses, no JVD. CHEST: No chest wall deformity. LUNGS: Equal air entry with diminished bibasilar lung sounds. No crackles, wheezes, rhonchi. No conversational dyspnea. CVS: S1 and S2 normal with no audible murmur, regular rhythm. No extra heart sounds ABDOMEN: No hepatosplenomegaly, active bowel sounds, no guarding or rigidity. SPINE: No scoliosis or deformity SKIN: No rashes CENTRAL NERVOUS SYSTEM: No focal deficits, tone is normal in all 4 extremities. EXTREMITIES: Bilateral lower extremity edema, slightly greater on the left. No clubbing, or cyanosis. Peripheral pulses are intact. - Labs CBC & Chem 7: 06/24/23 14:00 06/24/23 14:00 Assessment and Plan Assessment: Acute hypoxemic respiratory failure secondary to recurrent bilateral pleural effusions. Last thoracentesis was 05/02/2023 on the left with 850 MLS removed. Cytology negative. Significant fluid not found this admission. No plans for thoracentesis History of recurrent right-sided pleural effusion, most recent thoracentesis done on 03/25/2022. Negative for cytologically malignant cells. There were destructive left sided rib lesions Acute on chronic anemia, no obvious evidence of acute blood loss Metastatic prostate cancer with extensive skeletal disease involvement with metastases. PET scan from 04/28/2023 revealed progression of disease with innumerable metastatic foci throughout every bone visualized with large pelvic mass and retroperitoneal lymphadenopathy Pathologic fracture involving the right greater trochanter fracture/subacute Chronic back pain History of squamous cell lung cancer with previous chemo/radiation, intolerant immunotherapy Possible acute COPD exacerbation Coronary artery disease with previous stent placement. Elderly impaired left ventricular systolic function with ejection fraction 45-50% Hyperlipidemia Benign essential hypertension Peripheral vascular occlusive disease. History DVT, anticoagulated on Eliquis Former smoker Plan: The patient was seen and evaluated Medications reviewed No plans for thoracentesis this admission Continued on Eliquis Continue on bronchodilators, steroids Plan is for possible palliative radiation tomorrow Pain management is following as well Titrate down the FiO2 as tolerated Increase his activity as tolerated This patient was seen independently by the pulmonary nurse practitioner addressing pulmonary issues I have personally seen and examined the patient, performed the documentation and the assessment and plan as written. Number of minutes spent on the visit: 24.
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
[2023-06-28] MEDS: LACTULOSE 20 GM/30 ML CUP PO ONE (08:02)
--- NOTE | 2023-06-28 12:52 | P.PN ---
Subjective Progress Note Date: 06/28/23 I am seeing this patient in consultation today June 26, 2023 for evaluation of the patient's dyspnea and bilateral pleural effusions. Patient is a 72-year-old male patient with a known history of chronic obstructive pulmonary disease, congestive heart failure, hypertension, peripheral vascular disease, coronary artery disease with previous stent placement, chronic back pain, former smoker. He follows with Dr. Paul in the pulmonary office. He is known to have a history of squamous cell lung cancer diagnosed March 2020 with previous chemotherapy and radiation treatments. He was trialed on immunotherapy however was discontinued due to poor tolerance. PET scan from 04/28/2023 revealed progr ession of disease with innumerable metastatic foci throughout every bone visualized with large pelvic mass and retroperitoneal lymphadenopathy. Patient reportedly had a bone biopsy at an outside facility, consistent with metastatic prostate cancer. He has had recurrent bilateral pleural effusions and had undergone previous thoracentesis. Patient was evaluated approximately 1 month ago for similar symptoms. Pleural effusions were not large enough for thoracentesis at that time. Most recent left-sided thoracentesis on 05/02/2023 with 850 ML's of fluid removed. Cytology was negative for malignancy. Fluid was a transudate that time. Previous echocardiogram January, had revealed mildly impaired left ventricular systolic function with ejection fraction 45- 50%. Patient returned to the emergency room on June 24 complaining mostly of lower back pain. He has reduced lower extremity strength and was mostly bedbound. He has a Benjamin catheter in place. He is reportedly scheduled to undergo palliative radiation therapy on his back. Once in the emergency room, he was also noted to be dyspneic. Denies any infectious symptoms such as fever, change in his chronic cough, hemoptysis. Denies sick contacts. Chest x-ray on arrival shows cardiomegaly, mild pulmonary vascular congestion, slightly increased moderate bilateral pleural effusions. CBC on arrival: WC count of 6, hemoglobin 8.1, hematocrit 25, platelets 192. BMP on arrival: Sodium 136, Tessman 3.7, chloride 100, serum bicarb 32, BUN 16, creatinine 0.58, glucose 112. NT proBNP was 1600. He is receiving Bumex twice a day. He is also receiving medications for possible COPD exacerbation. Does not seem symptomatic on my evaluation. He is currently sitting up in bed, on 3 L/min nasal cannula, in no acute distress. His primary complaint is back pain, which he is receiving methadone and as needed Dilaudid for. He is short of breath with exertion. Afebrile. Vitals are stable. The patient is seen today June 27, 2023 and follow-up on the regular medical floor. He is currently sitting up in bed. Awake and alert. His low back pain is somewhat better controlled. Still quite uncomfortable. He is maintaining O2 saturations in the 90s on 3 L/min per nasal cannula. His normal staying at 20 mL/h. Ultrasound of the chest did not reveal any significant amount of fluid to undergo thoracentesis safely. He has been evaluated by radiation oncology and the plan is to proceed with a CT simulation and possible single treatment tomorrow. He is also being followed by pain management. No new labs today. He is continued on DuoNeb ventilations, Pulmicort and performing scintillations, prednisone. Anticoagulated with Eliquis. The patient is seen today June 28, 2023 and follow-up on the regular medical floor. He is currently sitting up in bed. Awake and alert in no acute distress. He is having ongoing issues with chronic back pain. Improved today compared to yesterday. Plan is for a dose of radiation today. He denies any worsening shortness of breath, cough or congestion. He is maintaining O2 saturations in the mid 90s on 3 L/min per nasal cannula. He remains on DuoNeb ventilations, Symbicort, prednisone taper. Continued on oral diuretics. Anticoagulated with Eliquis. Objective - Vital Signs Vital signs: Vital Signs Temp 97.5 F L 06/28/23 07:33 Pulse 108 H 06/28/23 08:04 Resp 20 06/28/23 07:33 BP 107/58 06/28/23 07:33 Pulse Ox 95 06/28/23 07:43 FiO2 Intake & Output 06/27/23 06/28/23 06/28/23 18:59 06:59 18:59 Output Total 725 300 Balance -725 -300 Output: Urine 725 300 Other: Voiding Method Indwelling Catheter Indwelling Catheter Indwelling Catheter - Exam GENERAL EXAM: Alert, 73-year-old male, on 3 L nasal cannula, appears a bit more comfortable, states less pain than yesterday. HEAD: Normocephalic and atraumatic EYES: Normal reaction of pupils, equal size. NOSE: Clear with pink turbinates. THROAT: No erythema or exudates. NECK: No masses, no JVD. CHEST: No chest wall deformity. LUNGS: Equal air entry with diminished bibasilar lung sounds. No crackles, wheezes, rhonchi. CVS: S1 and S2 normal with no audible murmur, regular rhythm. No extra heart sounds ABDOMEN: No hepatosplenomegaly, active bowel sounds, no guarding or rigidity. SPINE: No scoliosis or deformity SKIN: No rashes CENTRAL NERVOUS SYSTEM: No focal deficits, tone is normal in all 4 extremities. EXTREMITIES: Bilateral lower extremity edema, slightly greater on the left. No clubbing, or cyanosis. Peripheral pulses are intact. - Labs CBC & Chem 7: 06/24/23 14:00 06/24/23 14:00 Assessment and Plan Assessment: Acute hypoxemic respiratory failure secondary to recurrent bilateral pleural effusions. Last thoracentesis was 05/02/2023 on the left with 850 MLS removed. Cytology negative. Significant fluid not found this admission. No plans for thoracentesis History of recurrent right-sided pleural effusion, most recent thoracentesis done on 03/25/2022. Negative for cytologically malignant cells. There were destructive left sided rib lesions Acute on chronic anemia, no obvious evidence of acute blood loss Metastatic prostate cancer with extensive skeletal disease involvement with metastases. PET scan from 04/28/2023 revealed progression of disease with innumerable metastatic foci throughout every bone visualized with large pelvic mass and retroperitoneal lymphadenopathy Pathologic fracture involving the right greater trochanter fracture/subacute Chronic back pain History of squamous cell lung cancer with previous chemo/radiation, intolerant immunotherapy Possible acute COPD exacerbation Coronary artery disease with previous stent placement. Elderly impaired left ventricular systolic function with ejection fraction 45-50% Hyperlipidemia Benign essential hypertension Peripheral vascular occlusive disease. History DVT, anticoagulated on Eliquis Former smoker Plan: The patient was seen and evaluated Medications reviewed Continued on Eliquis Continue on bronchodilators, steroids Plan is for palliative radiation today Pain management is following as well Titrate down the FiO2 as tolerated Increase his activity as tolerated Plan is for home with his at discharge This patient was seen independently by the pulmonary nurse practitioner addressing pulmonary issues I have personally seen and examined the patient, performed the documentation and the assessment and plan as written. Number of minutes spent on the visit: 22.
[2023-06-28 14:09] VITALS: BP 100/61; PULSE 103; RESP 17; TEMP 98.6
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
[2023-06-28] MEDS ORDERED: SYMBICORT 160-4.5 MCG INHALER INHALATION SCH (20:00)
== END 2023-06-28 16:30 | disposition home or self-care (01) | DRG 190 ==
LOC: EC 13:16 → 5NMEDONC 18:52
PROVIDERS: ADMIT Hospitalist; ATTEND Hospitalist
PROC: DP0C1ZZ Beam Radiation of Other Bone using Photons 1 - 10 MeV (ICD-10-PCS; principal; 2023-06-26)
DX: J44.1 Chronic obstructive pulmonary disease with (acute) exacerbation (principal); J96.01 Acute respiratory failure with hypoxia; C78.01 Secondary malignant neoplasm of right lung; C79.51 Secondary malignant neoplasm of bone; M84.459A Pathological fracture, hip, unspecified, initial encounter for fracture; J91.8 Pleural effusion in other conditions classified elsewhere; M48.56XA Collapsed vertebra, not elsewhere classified, lumbar region, initial encounter for fracture; I82.502 Chronic embolism and thrombosis of unspecified deep veins of left lower extremity; I50.32 Chronic diastolic (congestive) heart failure; I11.0 Hypertensive heart disease with heart failure; G83.89 Other specified paralytic syndromes; I73.9 Peripheral vascular disease, unspecified; D63.0 Anemia in neoplastic disease; M51.36 Other intervertebral disc degeneration, lumbar region; M47.816 Spondylosis without myelopathy or radiculopathy, lumbar region; E78.5 Hyperlipidemia, unspecified; J70.4 Drug-induced interstitial lung disorders, unspecified; T45.1X5A Adverse effect of antineoplastic and immunosuppressive drugs, initial encounter; G89.3 Neoplasm related pain (acute) (chronic); M79.605 Pain in left leg; N32.0 Bladder-neck obstruction; R53.81 Other malaise; K29.70 Gastritis, unspecified, without bleeding; R59.0 Localized enlarged lymph nodes; Z95.820 Peripheral vascular angioplasty status with implants and grafts; Z87.891 Personal history of nicotine dependence; Z85.46 Personal history of malignant neoplasm of prostate; Z79.01 Long term (current) use of anticoagulants; Z79.899 Other long term (current) drug therapy; Z80.1 Family history of malignant neoplasm of trachea, bronchus and lung; Z86.14 Personal history of Methicillin resistant Staphylococcus aureus infection; Z92.21 Personal history of antineoplastic chemotherapy; Z92.3 Personal history of irradiation; I25.2 Old myocardial infarction; Z95.5 Presence of coronary angioplasty implant and graft; Z74.01 Bed confinement status; Z11.52 Encounter for screening for COVID-19; Z79.82 Long term (current) use of aspirin
CPT/HCPCS: 36415; 71046; 74176; 76604; 77295; 77300; 77334; 77412; 77470; 80053; 83880; 85025; 85610; 85730; 87636; 93005; 94640; 94760; 96374; 96375; 96376; 99285